=== PATIENT | female | born 1950 | race Caucasian/White ===

== ENCOUNTER 2017-03-19 13:30 | Inpatient (IN) | payer MEDICARE ==
--- NOTE | 2017-03-19 14:05 | ED Physician Chart ---
ED Chief Complaint/HPI - Patient Information Date Seen:: 03/19/17 Time Seen:: 13:50 Chief Complaint:: abnormal laboratory tests History of Present Illness:: Patient refused laboratory tests on the and of this month. On 2016 patient's hemoglobin was 10.7, hematocrit 31.6 platelets 154,000 potassium 3.4, BUN 32. Allergies:: Allergies Allergy/AdvReac Type Severity Reaction Status Date / Time Penicillins Allergy Verified 03/19/17 13:43 Vitals:: Vital Signs - 8 hr 03/19/17 13:43 Temp 98.1 F HR 128 RR 17 BP 135/69 O2 Sat % 95 Historian:: Patient Review:: Nurse's Note Reviewed, Transfer documents Reviewed ED Review of Systems - Review of Systems General/Constitutional: No fever, No chills Skin: No skin lesions Head: No headache Eyes: No loss of vision ENT: No earache Neck: No neck pain, No swelling Cardio Vascular: No chest pain Pulmonary: No SOB, No cough GI: No nausea, No vomiting, No diarrhea G/U: No dysuria Musculoskeletal: No bone or joint pain Endocrine: No polyuria Psychiatric: No prior psych history Hematopoietic: No bruising, No lymphadenopathy Allergic/Immuno: No urticaria Neurological: No syncope, No focal symptoms ED Past Medical History - Past Medical History Past Medical History: HTN, DM, Arthritis, Other (morbid obesity; overactive bladder; anxiety; insomnia; atherosclerotic heart disease; schizoaffective disorder; chronic renal insufficiency) Family History: HTN Social History: Smoker, No Alcohol, Care Facility, Other (quit smoking about 5 years ago) Surgical History: other (rotator cuff right shoulder; carpal tunnel right wrist ; plantar fasciitis right foot) Psychiatricy History: Depression, Bipolar Medication: Reviewed Family Medical History - Family Member Mother Hx Family Cancer: No Hx Family Coronary Artery Disease: No Hx Family Congestive Heart Failure: No Hx Family Hypertension: No Hx Family Stroke: No Hx Family Diabetes: No Hx Family Dementia: No Hx Family AIDS: No Hx Family COPD: No Hx Family Psychiatric Problems: No Hx Family Tuberculosis: No ED Physical Exam - Physical Examination General/Constitutional: Well-developed, well-nourished, Alert Head: Atraumatic Eyes: Lids, conjuctiva normal, PERRL Skin: Nl inspection, No rash, No skin lesions, No ecchymosis ENMT: External ears, nose nl, Lips, teeth, gums nl Other ENMT comments:: 3/4 gum retraction Neck: No nuchal rigidity Other Cardio Vascular comments:: Rapid irregular rhythm; no murmur GI: No tenderness/rebounding/guarding, No organomegaly, No hernia : No CVA tenderness Extremities: No tenderness or effusion Neuro/Psych: Alert/oriented Other Neuro/Psych comments:: Alert and oriented to correct date Misc: Normal back ED Labs/Radiology/EKG Results - Lab Results Results: Laboratory Results - last 24 hr 03/19/17 03/19/17 14:06 14:06 WBC 11.9 H RBC 4.59 Hgb 12.4 Hct 37.1 L MCV 80.9 L MCH 27.0 MCHC Differential 33.4 RDW 14.8 Plt Count 214 MPV 7.2 Neutrophils % 82.5 H Lymphocytes % 11.8 L Monocytes % 5.3 Eosinophils % 0.4 Basophils % 0.0 Sodium 129 L Potassium 2.5 L* Chloride 84 L BUN 25 Creatinine 1.4 H Est GFR ( Amer) 48.5 Est GFR (Non-Af Amer) 40.1 BUN/Creatinine Ratio 17.9 Glucose 338 H Calcium 9.4 Total Bilirubin 1.0 AST 20 ALT 16 Alkaline Phosphatase 76 Total Protein 6.9 Albumin 3.7 Globulin 3.2 Albumin/Globulin Ratio 1.2 - Radiology Results Results: Chest x-ray demonstrated no acute disease - EKG Interpretations Rate & Rhythm: EKG demonstrated atrial fibrillation with a rate of 142 [place]: normal axis Comments:: Small Q waves in II, III, and avF and ST and T-wave changes ED Septic Shock - . Is Septic Shock (SBP<90, OR Lactate>4 mmol\L) present?: No - <6hrs of presentation: Vital Signs: Vital Signs - 8 hr 03/19/17 13:43 Temp 98.1 F HR 128 RR 17 BP 135/69 O2 Sat % 95 ED Reassessment (Disposition) - Reassessment Reassessment Condition:: Unchanged - Diagnosis Diagnosis:: Atrial fibrillation with rapid ventricular response; leukocytosis; hypokalemia - Patient Disposition Admitted to:: Telemetry Spoke to:: Mario Lewis Admitting Medical Physician:: Mario Lewis Condition at Disposition:: Stable, Improved
--- NOTE | 2017-03-19 14:10 | Diagnostic Imaging Report ---
CHEST X-RAY: AP view INDICATION: Rapid atrial fibrillation COMPARISON: None FINDINGS: The patient is rotated limiting the exam. No focal consolidation or effusions. Cardiomegaly is noted. Degenerative changes of the spine are noted. There is eventration of the right hemidiaphragm. IMPRESSION: No focal consolidation identified. Cardiomegaly.
[2017-03-19 14:16] LABS: % EOSINOPHILS 0.4 % (0.0-5.0); % LYMPHOCYTES 11.8 % (20.0-50.0); % MONOCYTES 5.3 % (2.0-10.0); % NEUTROPHILS 82.5 % (40.0-80.0); HEMATOCRIT 37.1 % (41.0-60); HEMOGLOBIN 12.4 gm/dL (12-16); LYMPHOCYTE ABSOLUTE 1.4 Th/cmm (1.5-3.0); MEAN CELL VOLUME 80.9 fl (81-100); MEAN CORPUSCULAR HGB CONC 33.4 pg (28.0-36.0); MEAN PLATELET VOLUME 7.2 fl; MONOCYTE ABSOLUTE 0.6 Th/cmm (0.3-1.0); NEUTROPHILE ABSOLUTE 9.9 Th/cmm (1.8-8.0); PLATELET COUNT 214 Th/cmm (150-400); RED BLOOD COUNT 4.59 Mil/cmm (3.80-5.20); RED CELL DISTRIBUTION WIDTH 14.8 % (11.5-20.0); WHITE BLOOD COUNT 11.9 Th/cmm (4.8-10.8)
[2017-03-19 14:31] LABS: ALB/GLOB RATIO 1.2 (1.0-1.8); ALBUMIN 3.7 gm/dL (3.7-5.3); CALCIUM SERUM 9.4 mg/dL (8.6-10.3); CREATININE - SERUM 1.4 mg/dL (0.6-1.2); GFR AFRICAN-AMERICAN 48.5 ml/min (>90); GFR NON AFRICAN-AMERICAN 40.1 ml/min; TOTAL PROTEIN,SERUM 6.9 gm/dL (6.0-8.3)
[2017-03-19 14:42] LABS: POTASSIUM SERUM 2.5 mEq/L (3.5-5.1)
[2017-03-19] MEDS ORDERED: Potassium Chloride 20 mEq ER Tab PO ONE ×3 (14:53→20:50)
[2017-03-19 15:09] LABS: ANION GAP 18.4 (7.0-16.0); CARBON DIOXIDE 29.1 mEq/L (21.0-31.0)
[2017-03-19 16:02] LABS: A1C % 7.2 % (4.0-6.0)
--- NOTE | 2017-03-19 17:18 | Consultation ---
Consult Note - Consult Note Service Date: 03/19/17 Referring Physician: Mario Lewis Consult Note: PHYSICIAN Consultation Note: Date of Admission: 03/19/17 Purpose of Consultation: Chief Complaint: Patient REUBEN LANCASTER was admitted to [facility] Telemetry with A FIB, TACHYCARDIA,KNEE PAIN. History of Present Illness: Patient is 66 female with a past medical history of hypertension, diabetes mellitus type 2, arthritis, morbid obesity, chronic renal insufficiency was brought to the ER for abnormal labs, hypokalemia. Patient was found to have atrial fibrillation. As per the patient, this was new finding. As patient found to be diaphoretic and had subjective fevers. ID consult was called for further antibiotic management. Past Medical History: hypertension, diabetes mellitus type 2, arthritis, morbid obesity, chronic renal insufficiency , seizure affected disorder, insomnia. Allergies Allergy/AdvReac Type Severity Reaction Status Date / Time Penicillins Allergy Verified 03/19/17 13:43 Vital Signs Temp 99.0 F 03/19/17 16:41 Pulse 115 03/19/17 16:41 Resp 18 03/19/17 16:41 BP 99/62 03/19/17 16:41 Pulse Ox 94 03/19/17 16:41 Home Medication Medication Instructions Recorded Type Aspirin [Aspirin Chewable] 81 mg PO DAILY 03/19/17 History Diphenhydramine HCL [Benadryl] 25 mg PO Q6H PRN 03/19/17 History Divalproex Sodium [Depakote] 1,000 mg PO HS 03/19/17 History Docusate Sodium [Colace] 100 mg PO BID 03/19/17 History Escitalopram Oxalate [Lexapro] 20 mg PO DAILY 03/19/17 History Ferrous Sulfate [Iron] 325 mg PO BID 03/19/17 History Furosemide [Lasix] 40 mg PO DAILY 03/19/17 History Hydrochlorothiazide [Hctz*] 25 mg PO DAILY 03/19/17 History Hydrocodone/APAP 10 mg/325 mg 1 tab PO Q4H PRN 03/19/17 History [[place] 10 mg/325 mg] Insulin Human Regular [NovoLIN R] 0 units SUBQ ACHS 03/19/17 History Ipratropium/Albuterol Sulfate 3 ml IH Q6H PRN 03/19/17 History [Iprat-Albut 0.5-3(2.5) mg/3 ml] Lorazepam [Ativan] 1 mg PO Q6H PRN 03/19/17 History Losartan Potassium [Cozaar] 50 mg PO HS 03/19/17 History Magnesium Hydroxide [Milk of 30 ml PO Q6H PRN 03/19/17 History Magnesia] Oxybutynin Chloride [Ditropan*] 5 mg PO BID 03/19/17 History amLODIPine Besylate [Norvasc*] 10 mg PO DAILY 03/19/17 History metFORMIN [Glucophage] 500 mg PO BID 03/19/17 History Current Medications Generic Name Dose Route Start Last Admin Trade Name Freq PRN Reason Stop Dose Admin Morphine Sulfate 1 mg 03/19/17 17:13 Morphine IVP 05/18/17 17:12 Q4HR PRN Pain (Severe) Review of Systems: A 12 point ROS was reviewed with the pertinent positive and negatives noted in the HPI. Physical Exam: General: Comfortable, obese. HEENT: Head: Normocephalic, atraumatic. Oral cavity: Moist, pink tongue. Eyes : No pallor. No icterus. Pupils PERRLA. EOMI. Neck: Supple, no JVD, no use of X his neck muscles. Cardio: S1 and S2 within normal limits regular rhythm no murmur no gallop. Respiratory: Vesicular breath sound, no crackles, no wheezing. Abdominal: Soft, nontender nondistended bowel sounds present Genital/Urinary: Deferred Extremities: No cyanosis, no clubbing, no edema. Neurological: Alert, awake, oriented 3. Assessment: 1. leukocytosis, reactive. r/o sepsis. 2. afib with rapid ventricular response. 3. Hypokalemia. Plan: Will Levaquin empirically., sepsis w/u. If sepsis workup comes negative in 3 to 5 days, discontinue antibiotic Levaquin. Thank you, Dr. Lewis for involving me in taking care of this patient Signed, Prosper Sampson M.D. [id number]
[2017-03-19] MEDS ORDERED: Levofloxacin 500mg/100mL 500 MG/100 ML BAG IV SCH (17:30)
[2017-03-19] MEDS ORDERED: Pneumococcal Vaccine 0.5 mL Vial IM ONE (20:01)
[2017-03-19] MEDS ORDERED: INSULIN ASPART SLIDING SCALE 100 UNITS/ML UNIT SUBQ SCH (21:00)
[2017-03-19] MEDS: Hydrocodone/APAP 10 mg/325 mg Tab PO PRN (21:13)
[2017-03-19] MEDS ORDERED: Hydrocodone/APAP 10 mg/325 mg Tab PO PRN (22:21)
[2017-03-19] MEDS ORDERED: Magnesium Hydroxide (MOM) 30 mL UDC PO PRN (22:21)
[2017-03-19] MEDS ORDERED: Albuterol/Ipratropium Neb 3 ML AERS HHN PRN (22:21)
[2017-03-19 23:12] LABS: URINE MICROSCOPIC INDICATED? YES; URINE SOURCE RANDOM
[2017-03-19 23:22] LABS: URINE BILIRUBIN NEGATIVE (NEGATIVE); URINE BLOOD TRACE (NEGATIVE); URINE GLUCOSE (UA) NEGATIVE (NEGATIVE); URINE KETONE TRACE mg/dL (NEGATIVE); URINE LEUKOCYTE ESTERASE SMALL (NEGATIVE); URINE NITRATE NEGATIVE (NEGATIVE); URINE PH 5.5 (4.6 - 8.0); URINE PROTEIN 30 mg/dL (NEGATIVE); URINE UROBILINOGEN 0.2 E.U./dL (0.2 - 1.0)
[2017-03-19 23:25] LABS: URINE BACTERIA MANY /hpf (NONE SEEN); URINE CLARITY CLOUDY (CLEAR); URINE COLOR YELLOW; URINE EPITHELIAL CELLS FEW /lpf (FEW)
[2017-03-19 23:26] LABS: URINE WBC >100 /hpf (0-5)
[2017-03-20] VITALS: BP 111/74
[2017-03-20 06:12] LABS: % EOSINOPHILS 2.2 % (0.0-5.0); % LYMPHOCYTES 28.6 % (20.0-50.0); % MONOCYTES 10.1 % (2.0-10.0); % NEUTROPHILS 59.1 % (40.0-80.0); EOSINOPHILE ABSOLUTE 0.2 Th/cmm (0.1-0.4); HEMOGLOBIN 11.1 gm/dL (12-16); LYMPHOCYTE ABSOLUTE 2.1 Th/cmm (1.5-3.0); MEAN CELL VOLUME 79.8 fl (81-100); MEAN CORPUSCULAR HEMOGLOBIN 27.5 pg (27.0-31.0); MEAN CORPUSCULAR HGB CONC 34.5 pg (28.0-36.0); MEAN PLATELET VOLUME 7.2 fl; MONOCYTE ABSOLUTE 0.7 Th/cmm (0.3-1.0); NEUTROPHILE ABSOLUTE 4.2 Th/cmm (1.8-8.0); PLATELET COUNT 200 Th/cmm (150-400); RED BLOOD COUNT 4.02 Mil/cmm (3.80-5.20)
[2017-03-20 06:14] LABS: HEMATOCRIT 32.1 % (41.0-60); WHITE BLOOD COUNT 7.2 Th/cmm (4.8-10.8)
[2017-03-20] MEDS: INSULIN ASPART, RECOMBINANT 100 UNITS/ML SUBQ SCH ×4 (06:39→21:07)
[2017-03-20 07:04] LABS: ALB/GLOB RATIO 1.2 (1.0-1.8); ALBUMIN 3.4 gm/dL (3.7-5.3); ANION GAP 9.2 (7.0-16.0); BILIRUBIN,TOTAL 0.6 mg/dL (0.3-1.0); CALCIUM SERUM 9.1 mg/dL (8.6-10.3); CARBON DIOXIDE 37.3 mEq/L (21.0-31.0); CREATININE - SERUM 1.2 mg/dL (0.6-1.2); GFR NON AFRICAN-AMERICAN 47.9 ml/min; TOTAL PROTEIN,SERUM 6.2 gm/dL (6.0-8.3)
[2017-03-20 07:33] LABS: POTASSIUM SERUM 2.5 mEq/L (3.5-5.1)
[2017-03-20] MEDS ORDERED: Aspirin 81mg Chewable Tab PO SCH (09:00)
[2017-03-20] MEDS ORDERED: Potassium Chloride 20 mEq ER Tab PO ONE ×4 (09:06→22:48)
[2017-03-20] MEDS ORDERED: KCL 20mEq/100mL Premix 20 MEQ/100 ML PIGGYBACK IV ONE (09:08)
[2017-03-20] MEDS: Ferrous Sulfate 325 MG TAB PO SCH ×2 (10:22→17:12)
[2017-03-20] MEDS: Hydrocodone/APAP 10 mg/325 mg Tab PO PRN ×3 (10:41→21:50)
--- NOTE | 2017-03-20 13:04 | Infectious Disease Prog Note ---
Infectious Disease Subjective - Review of Systems Service Date: 03/20/17 Subjective: No new change, no fever. Infectious Disease Objective - Results Result Diagrams: 03/20/17 05:30 03/20/17 05:30 Recent Labs: Laboratory Last Values WBC 7.2 Th/cmm (4.8-10.8) D 03/20/17 05:30 RBC 4.02 Mil/cmm (3.80-5.20) 03/20/17 05:30 Hgb 11.1 gm/dL (12-16) L 03/20/17 05:30 Hct 32.1 % (41.0-60) L D 03/20/17 05:30 MCV 79.8 fl (81-100) L 03/20/17 05:30 MCH 27.5 pg (27.0-31.0) 03/20/17 05:30 MCHC Differential 34.5 pg (28.0-36.0) 03/20/17 05:30 RDW 15.0 % (11.5-20.0) 03/20/17 05:30 Plt Count 200 Th/cmm (150-400) 03/20/17 05:30 MPV 7.2 fl 03/20/17 05:30 Neutrophils % 59.1 % (40.0-80.0) 03/20/17 05:30 Lymphocytes % 28.6 % (20.0-50.0) 03/20/17 05:30 Monocytes % 10.1 % (2.0-10.0) H 03/20/17 05:30 Eosinophils % 2.2 % (0.0-5.0) 03/20/17 05:30 Basophils % 0.0 % (0.0-2.0) 03/20/17 05:30 Sodium 134 mEq/L (136-145) L 03/20/17 05:30 Potassium 2.5 mEq/L (3.5-5.1) L* 03/20/17 05:30 Chloride 90 mEq/L (98-107) L 03/20/17 05:30 Carbon Dioxide 37.3 mEq/L (21.0-31.0) H 03/20/17 05:30 Anion Gap 9.2 (7.0-16.0) 03/20/17 05:30 BUN 27 mg/dL (7-25) H 03/20/17 05:30 Creatinine 1.2 mg/dL (0.6-1.2) 03/20/17 05:30 Est GFR ( Amer) 58.0 ml/min (>90) 03/20/17 05:30 Est GFR (Non-Af Amer) 47.9 ml/min 03/20/17 05:30 BUN/Creatinine Ratio 22.5 03/20/17 05:30 Glucose 169 mg/dL (70-105) H 03/20/17 05:30 POC Glucose 244 MG/DL (70 - 105) H 03/20/17 11:27 Hemoglobin A1c % 7.2 % (4.0-6.0) H 03/19/17 14:06 Calcium 9.1 mg/dL (8.6-10.3) 03/20/17 05:30 Magnesium 1.9 mg/dL (1.9-2.7) 03/19/17 14:06 Total Bilirubin 0.6 mg/dL (0.3-1.0) 03/20/17 05:30 AST 23 U/L (13-39) 03/20/17 05:30 ALT 14 U/L (7-52) 03/20/17 05:30 Alkaline Phosphatase 62 U/L (34-104) 03/20/17 05:30 Troponin I < 0.01 ng/mL (0.01-0.05) L 03/20/17 05:30 Total Protein 6.2 gm/dL (6.0-8.3) 03/20/17 05:30 Albumin 3.4 gm/dL (3.7-5.3) L 03/20/17 05:30 Globulin 2.8 gm/dL 03/20/17 05:30 Albumin/Globulin Ratio 1.2 (1.0-1.8) 03/20/17 05:30 Triglycerides 183 mg/dL (<150) H 03/20/17 05:30 Cholesterol 123 mg/dL (<200) 03/20/17 05:30 LDL Cholesterol Direct 69 mg/dL (75-193) L 03/20/17 05:30 HDL Cholesterol 24 mg/dL (23-92) 03/20/17 05:30 TSH 0.01 uIU/ml (0.34-5.60) L 03/19/17 18:07 Urine Source RANDOM 03/19/17 22:30 Urine Color YELLOW 03/19/17 22:30 Urine Clarity CLOUDY (CLEAR) H 03/19/17 22:30 Urine pH 5.5 (4.6 - 8.0) 03/19/17 22:30 Ur Specific [place] 1.015 (1.005-1.030) 03/19/17 22:30 Urine Protein 30 mg/dL (NEGATIVE) H 03/19/17 22:30 Urine Glucose (UA) NEGATIVE mg/dL (NEGATIVE) 03/19/17 22:30 Urine Ketones TRACE mg/dL (NEGATIVE) 03/19/17 22:30 Urine Blood TRACE (NEGATIVE) 03/19/17 22:30 Urine Nitrate NEGATIVE (NEGATIVE) 03/19/17 22:30 Urine Bilirubin NEGATIVE (NEGATIVE) 03/19/17 22:30 Urine Urobilinogen 0.2 E.U./dL (0.2 - 1.0) 03/19/17 22:30 Ur Leukocyte Esterase SMALL (NEGATIVE) H 03/19/17 22:30 Urine RBC 2-5 /hpf (0-5) 03/19/17 22:30 Urine WBC >100 /hpf (0-5) H 03/19/17 22:30 Ur Epithelial Cells FEW /lpf (FEW) 03/19/17 22:30 Urine Bacteria MANY /hpf (NONE SEEN) 03/19/17 22:30 - Physical Exam Vitals and I&O: Vital Signs Temp 98 F 03/20/17 04:00 Pulse 81 03/20/17 10:23 Resp 18 03/20/17 07:35 BP 111/82 03/20/17 10:23 Pulse Ox 95 03/20/17 07:35 Intake & Output 03/19/17 03/20/17 03/20/17 18:59 06:59 18:59 Intake Total 285 Balance 285 Weight (lbs) 129.274 kg Intake: Oral 285 Other: # Voids 2 # Bowel Movements 0 Active Medications: Current Medications Acetaminophen/Hydrocodone Bitart ([place] 10 Mg/325 Mg) 1 tab PO Q4H PRN PRN Reason: MODERATE PAIN Stop: 05/18/17 20:45 Last Admin: 03/20/17 10:41 Dose: 1 tab Acetaminophen/Hydrocodone Bitart ([place] 10 Mg/325 Mg) 1 tab PO Q4H PRN PRN Reason: PAIN Stop: 05/18/17 22:20 Albuterol/Ipratropium (Duoneb Neb) 3 ml HHN Q6H PRN PRN Reason: Wheezing Stop: 05/18/17 22:20 Amlodipine Besylate (Norvasc) 10 mg PO DAILY JASEN Stop: 05/19/17 08:59 Last Admin: 03/20/17 10:23 Dose: 10 mg Aspirin (Aspirin Chewable) 81 mg PO DAILY JASEN Stop: 05/19/17 08:59 Last Admin: 03/20/17 10:22 Dose: 81 mg Diphenhydramine HCl (Benadryl) 25 mg PO Q6H PRN PRN Reason: Itching Stop: 05/18/17 22:20 Divalproex Sodium (Depakote Dr) 1,000 mg PO HS JASEN PRN Reason: Protocol Stop: 05/19/17 20:59 Docusate Sodium (Colace) 100 mg PO BID JASEN Stop: 05/19/17 08:59 Last Admin: 03/20/17 10:18 Dose: 100 mg Escitalopram Oxalate (Lexapro) 20 mg PO DAILY JASEN PRN Reason: Protocol Stop: 05/19/17 08:59 Ferrous Sulfate (Iron) 325 mg PO BID JASEN Stop: 05/19/17 08:59 Last Admin: 03/20/17 10:22 Dose: 325 mg Furosemide (Lasix) 40 mg PO DAILY JASEN Stop: 05/19/17 08:59 Last Admin: 03/20/17 10:23 Dose: 40 mg Hydrochlorothiazide (Hctz) 25 mg PO DAILY JASEN Stop: 05/19/17 08:59 Last Admin: 03/20/17 10:20 Dose: 25 mg Levofloxacin (Levaquin Pb) 500 mg in 100 mls @ 100 mls/hr IV Q24HR JASEN Stop: 05/18/17 17:29 Last Admin: 03/19/17 19:04 Dose: 100 mls/hr Insulin Aspart (Novolog) 0 units SUBQ ACHS JASEN PRN Reason: Protocol Stop: 05/19/17 07:29 Last Admin: 03/20/17 11:44 Dose: 4 units Lorazepam (Ativan) 1 mg PO Q6H PRN; Protocol PRN Reason: Anxiety Stop: 05/18/17 22:20 Losartan Potassium (Cozaar) 50 mg PO HS JASEN Stop: 05/19/17 20:59 Magnesium Hydroxide (Milk Of Magnesia) 30 ml PO Q6H PRN PRN Reason: Constipation Stop: 05/18/17 22:20 Metformin HCl (Glucophage) 500 mg PO BID JASEN Stop: 05/19/17 08:59 Last Admin: 03/20/17 10:22 Dose: 500 mg Morphine Sulfate (Morphine) 1 mg IVP Q4HR PRN PRN Reason: Pain (Severe) Stop: 05/18/17 17:12 Last Admin: 03/20/17 05:54 Dose: 1 mg Oxybutynin Chloride (Ditropan) 5 mg PO BID JASEN Stop: 05/19/17 08:59 Last Admin: 03/20/17 10:20 Dose: 5 mg Rivaroxaban (Xarelto) 20 mg PO DAILY JASEN Stop: 05/19/17 08:59 Last Admin: 03/20/17 10:21 Dose: 20 mg Temazepam (Restoril) 15 mg PO HS PRN; Protocol PRN Reason: Insomnia Stop: 05/18/17 20:48 Last Admin: 03/19/17 21:44 Dose: 15 mg General: no acute distress, well developed, well nourished HEENT: atraumatic, normocephalic, PERRLA, EOMI, moist mucous membrane Neck: supple, no thyromegaly, no lymphadenopathy Cardiovascular: S1S2, regular Lungs: clear to auscultation bilaterally, clear to percussion Abdomen: soft, no tender, no distended Extremities: no cyanosis, no clubbing, no edema Neurological: awake, alert, oriented Skin: intact Infectious Disease Assmt/Plan - Problem List Patient Problems: All Active Problems ABNORMAL LAB RESULTS, NONCOMPLIANT, DIZZ (Acute) - Assessment Assessment: 1. UTI. 2. Afib. 3. morbid obesity. 4. Leukocytosis improved. 5. Hypoklalemia. - Plan Plan: Will supplement KCL. Check K again at 400pm. if it continues to stay low, than call for renal consultation.
[2017-03-20 15:01] LABS: ANION GAP 7.9 (7.0-16.0); BUN - UREA NITROGEN 23 mg/dL (7-25); CALCIUM SERUM 9.3 mg/dL (8.6-10.3); CARBON DIOXIDE 38.1 mEq/L (21.0-31.0); CHLORIDE 91 mEq/L (98-107); CREATININE - SERUM 1.1 mg/dL (0.6-1.2); GFR AFRICAN-AMERICAN > 60.0 ml/min (>90); GLUCOSE 194 mg/dL (70-105); SODIUM SERUM 134 mEq/L (136-145)
[2017-03-20] MEDS ORDERED: Probiotic Screen MC PRN (16:24)
--- NOTE | 2017-03-20 17:45 | Cardiology ---
03/20/[address] Lewis. M-MODE ECHOCARDIOGRAM: Mitral valve, anterior leaflet of mitral valve shows normal excursion, EF velocity. Posterior leaflets of mitral valve shows normal excursion. Left ventricular posterior wall shows increased thickness, normal excursion. Interventricular septum shows increased thickness, normal excursion, hypertrophy of the left ventricle, ejection fraction 60%. Left atrium normal. Aortic root shows normal dimension, normal excursion of aortic leaflets. CONCLUSION: Hypertrophy of the left ventricle, ejection fraction 60%. 2D ECHO: Long axis view showed normal sized left ventricle with hypertrophy of the left ventricle. Left atrium normal. Aortic root showed normal dimension, normal excursion of aortic leaflets. Short axis view of mitral valve normal. Short axis view of aortic valve normal. Apical four chamber view showed normal sized left ventricle with hypertrophy of the left ventricle. Left atrium normal. Right ventricular cavity, right atrium normal, no pericardial effusion. CONCLUSION: Hypertrophy of the left ventricle, ejection fraction 60%. Doppler study shows trace tricuspid regurgitation, prominent A wave consistent with poor compliance of left ventricle. JOB# [id number]
[2017-03-20 18:28] LABS: ALB/GLOB RATIO 1.2 (1.0-1.8); ALBUMIN 3.6 gm/dL (3.7-5.3); ALKALINE PHOSPHATASE 67 U/L (34-104); ANION GAP 8.6 (7.0-16.0); BILIRUBIN,TOTAL 0.6 mg/dL (0.3-1.0); BUN - UREA NITROGEN 22 mg/dL (7-25); CALCIUM SERUM 9.2 mg/dL (8.6-10.3); CARBON DIOXIDE 37.2 mEq/L (21.0-31.0); CHLORIDE 88 mEq/L (98-107); CREATININE - SERUM 1.1 mg/dL (0.6-1.2); GFR AFRICAN-AMERICAN > 60.0 ml/min (>90); GLUCOSE 146 mg/dL (70-105); SGOT 20 U/L (13-39); SGPT/ALT 13 U/L (7-52); SODIUM SERUM 131 mEq/L (136-145); TOTAL PROTEIN,SERUM 6.5 gm/dL (6.0-8.3)
[2017-03-20 18:43] LABS: POTASSIUM SERUM 2.8 mEq/L (3.5-5.1)
--- NOTE | 2017-03-20 22:30 | History and Physical ---
History of Present Illness - HPI Chief Complaint: abnormal labs HPI: 66 year old female admitted to the telemetry unit for abnormal labs. No fevers or chest pain noted Vital Signs: Last Vital Signs Temp 98.3 F 03/20/17 16:00 Pulse 80 03/20/17 21:11 Resp 18 03/20/17 19:54 BP 99/61 03/20/17 21:11 Pulse Ox 94 03/20/17 19:54 Past Medical History Cardiovascular: Report: HTN, Other (ahd) Pulmonary: Report: No Pertinent Hx Other History: diabetes athritis morbid obesity overreactive bladder anxiety insomnia schizoaffective chronic renal insufficiency - Past Surgical History Past Surgical History: Tonsillectomy (right foot, carpal tunnel right wrist, rotator cuff) Family Medical History - Family Member Mother History Unknown: Yes (noncontributory) Hx Family Cancer: No Hx Family Coronary Artery Disease: No Hx Family Congestive Heart Failure: No Hx Family Hypertension: No Hx Family Stroke: No Hx Family Diabetes: No Hx Family Dementia: No Hx Family AIDS: No Hx Family COPD: No Hx Family Psychiatric Problems: No Hx Family Tuberculosis: No Social History Smoke: <1 pack per day Alcohol: None Drugs: None Lives: Skilled Nursing - Medications Home Medications: Home Medication Medication Instructions Recorded Type Aspirin [Aspirin Chewable] 81 mg PO DAILY 03/19/17 History Diphenhydramine HCL [Benadryl] 25 mg PO Q6H PRN 03/19/17 History Divalproex Sodium [Depakote] 1,000 mg PO HS 03/19/17 History Docusate Sodium [Colace] 100 mg PO BID 03/19/17 History Escitalopram Oxalate [Lexapro] 20 mg PO DAILY 03/19/17 History Ferrous Sulfate [Iron] 325 mg PO BID 03/19/17 History Furosemide [Lasix] 40 mg PO DAILY 03/19/17 History Hydrochlorothiazide [Hctz*] 25 mg PO DAILY 03/19/17 History Hydrocodone/APAP 10 mg/325 mg 1 tab PO Q4H PRN 03/19/17 History [[place] 10 mg/325 mg] Insulin Human Regular [NovoLIN R] 0 units SUBQ ACHS 03/19/17 History Ipratropium/Albuterol Sulfate 3 ml IH Q6H PRN 03/19/17 History [Iprat-Albut 0.5-3(2.5) mg/3 ml] Lorazepam [Ativan] 1 mg PO Q6H PRN 03/19/17 History Losartan Potassium [Cozaar] 50 mg PO HS 03/19/17 History Magnesium Hydroxide [Milk of 30 ml PO Q6H PRN 03/19/17 History Magnesia] Oxybutynin Chloride [Ditropan*] 5 mg PO BID 03/19/17 History amLODIPine Besylate [Norvasc*] 10 mg PO DAILY 03/19/17 History metFORMIN [Glucophage] 500 mg PO BID 03/19/17 History - Allergies Allergies/Adverse Reactions: Allergies Allergy/AdvReac Type Severity Reaction Status Date / Time Penicillins Allergy Verified 03/19/17 13:43 Review of Systems - Review of Systems Constitutional: Report: No Significant Eyes: Report: No Significant ENT: Report: No Significant Respiratory: Report: No Significant Cardiovascular: Report: No Significant Gastrointestinal: Report: No Significant Genitourinary: Report: No Significant Neurological: Report: No Significant Physical Exam - Physical Exam HEENT: Report: Ears Nose Throat within normal limits Neck: Report: Within normal limits Cardiovascular Systems: Report: +s1/s2 noted Respiratory: Report: Breath Sounds are within normal limits Abdomen: Report: Non-tender to palpation Back: Report: Inspection of back is within normal limits. Extremities: Report: Non-tender to palpation. Skin: Report: Warm, Dry Neuro/Psych: Report: Mood affect is within normal limits - Lab Results All Lab Results last 24 hours: Laboratory Results - last 24 hr 03/19/17 03/20/17 03/20/17 22:30 05:30 05:30 WBC 7.2 D RBC 4.02 Hgb 11.1 L Hct 32.1 L D MCV 79.8 L MCH 27.5 MCHC Differential 34.5 RDW 15.0 Plt Count 200 MPV 7.2 Neutrophils % 59.1 Lymphocytes % 28.6 Monocytes % 10.1 H Eosinophils % 2.2 Basophils % 0.0 Sodium Potassium Chloride Carbon Dioxide Anion Gap BUN Creatinine Est GFR ( Amer) Est GFR (Non-Af Amer) BUN/Creatinine Ratio Glucose POC Glucose Calcium Total Bilirubin AST ALT Alkaline Phosphatase Troponin I < 0.01 L Total Protein Albumin Globulin Albumin/Globulin Ratio Triglycerides Cholesterol LDL Cholesterol Direct HDL Cholesterol Urine Source RANDOM Urine Color YELLOW Urine Clarity CLOUDY H Urine pH 5.5 Ur Specific [place] 1.015 Urine Protein 30 H Urine Glucose (UA) NEGATIVE Urine Ketones TRACE Urine Blood TRACE Urine Nitrate NEGATIVE Urine Bilirubin NEGATIVE Urine Urobilinogen 0.2 Ur Leukocyte Esterase SMALL H Urine RBC 2-5 Urine WBC >100 H Ur Epithelial Cells FEW Urine Bacteria MANY 03/20/17 03/20/17 03/20/17 05:30 06:00 11:27 WBC RBC Hgb Hct MCV MCH MCHC Differential RDW Plt Count MPV Neutrophils % Lymphocytes % Monocytes % Eosinophils % Basophils % Sodium 134 L Potassium 2.5 L* Chloride 90 L Carbon Dioxide 37.3 H Anion Gap 9.2 BUN 27 H Creatinine 1.2 Est GFR ( Amer) 58.0 Est GFR (Non-Af Amer) 47.9 BUN/Creatinine Ratio 22.5 Glucose 169 H POC Glucose 167 H 244 H Calcium 9.1 Total Bilirubin 0.6 AST 23 ALT 14 Alkaline Phosphatase 62 Troponin I Total Protein 6.2 Albumin 3.4 L Globulin 2.8 Albumin/Globulin Ratio 1.2 Triglycerides 183 H Cholesterol 123 LDL Cholesterol Direct 69 L HDL Cholesterol 24 Urine Source Urine Color Urine Clarity Urine pH Ur Specific [place] Urine Protein Urine Glucose (UA) Urine Ketones Urine Blood Urine Nitrate Urine Bilirubin Urine Urobilinogen Ur Leukocyte Esterase Urine RBC Urine WBC Ur Epithelial Cells Urine Bacteria 03/20/17 03/20/17 03/20/17 14:22 17:08 18:06 WBC RBC Hgb Hct MCV MCH MCHC Differential RDW Plt Count MPV Neutrophils % Lymphocytes % Monocytes % Eosinophils % Basophils % Sodium 134 L 131 L Potassium 3.0 L 2.8 L* Chloride 91 L 88 L Carbon Dioxide 38.1 H 37.2 H Anion Gap 7.9 8.6 BUN 23 22 Creatinine 1.1 1.1 Est GFR ( Amer) > 60.0 > 60.0 Est GFR (Non-Af Amer) 53.0 53.0 BUN/Creatinine Ratio 20.9 20.0 Glucose 194 H 146 H POC Glucose 176 H Calcium 9.3 9.2 Total Bilirubin 0.6 AST 20 ALT 13 Alkaline Phosphatase 67 Troponin I Total Protein 6.5 Albumin 3.6 L Globulin 2.9 Albumin/Globulin Ratio 1.2 Triglycerides Cholesterol LDL Cholesterol Direct HDL Cholesterol Urine Source Urine Color Urine Clarity Urine pH Ur Specific [place] Urine Protein Urine Glucose (UA) Urine Ketones Urine Blood Urine Nitrate Urine Bilirubin Urine Urobilinogen Ur Leukocyte Esterase Urine RBC Urine WBC Ur Epithelial Cells Urine Bacteria 03/20/17 20:45 WBC RBC Hgb Hct MCV MCH MCHC Differential RDW Plt Count MPV Neutrophils % Lymphocytes % Monocytes % Eosinophils % Basophils % Sodium Potassium Chloride Carbon Dioxide Anion Gap BUN Creatinine Est GFR ( Amer) Est GFR (Non-Af Amer) BUN/Creatinine Ratio Glucose POC Glucose 189 H Calcium Total Bilirubin AST ALT Alkaline Phosphatase Troponin I Total Protein Albumin Globulin Albumin/Globulin Ratio Triglycerides Cholesterol LDL Cholesterol Direct HDL Cholesterol Urine Source Urine Color Urine Clarity Urine pH Ur Specific [place] Urine Protein Urine Glucose (UA) Urine Ketones Urine Blood Urine Nitrate Urine Bilirubin Urine Urobilinogen Ur Leukocyte Esterase Urine RBC Urine WBC Ur Epithelial Cells Urine Bacteria - Assessment Assessment: Current Active Problems Problem Status Onset ABNORMAL LAB RESULTS, NONCOMPLIANT, DIZZ Acute hypokalemia protein roel malnutrition anemia hyponatremia diabetes obesity - Plan Plan: admit to tele monitor potassium , replace as needed dietary consult
[2017-03-21] MEDS ORDERED: Lactobacillus Rhamnosus 10 Billion CFU Capsule PO SCH (09:00)
== END 2017-03-20 23:07 | DRG 640 ==
LOC: ER 13:30 → TELE 15:00
PROVIDERS: ADMIT Internal Medicine; ATTEND Internal Medicine
DX: E87.6 Hypokalemia (principal); R65.11 Systemic inflammatory response syndrome (SIRS) of non-infectious origin with acute organ dysfunction; E46 Unspecified protein-calorie malnutrition; E11.22 Type 2 diabetes mellitus with diabetic chronic kidney disease; I48.91 Unspecified atrial fibrillation; E87.1 Hypo-osmolality and hyponatremia; N39.0 Urinary tract infection, site not specified; I12.9 Hypertensive chronic kidney disease with stage 1 through stage 4 chronic kidney disease, or unspecified chronic kidney disease; Z68.41 Body mass index [BMI] 40.0-44.9, adult; M19.90 Unspecified osteoarthritis, unspecified site; E66.01 Morbid (severe) obesity due to excess calories; N32.81 Overactive bladder; F41.9 Anxiety disorder, unspecified; G47.00 Insomnia, unspecified; I25.10 Atherosclerotic heart disease of native coronary artery without angina pectoris; F25.9 Schizoaffective disorder, unspecified; N18.9 Chronic kidney disease, unspecified; F17.210 Nicotine dependence, cigarettes, uncomplicated; G40.909 Epilepsy, unspecified, not intractable, without status epilepticus; Z88.0 Allergy status to penicillin; Z79.82 Long term (current) use of aspirin; Z79.4 Long term (current) use of insulin
CPT/HCPCS: 36415-UA; 71010-TC; 80048-TC; 80053-TC; 80061-TC; 81001-TC; 82948-90; 83036-90; 83735-TC; 84443-TC; 84484-TC; 85025-TC; 87086-90; 93005; 94760; J1815; J1956; J2270; J3480; J7030; Z7610

== ENCOUNTER 2017-03-20 22:57 | Inpatient (IN) | payer MEDICARE ==
[2017-03-21 00:20] VITALS: BP 134/76
[2017-03-21] MEDS ORDERED: Maalox 30 mL Cup PO PRN (00:21)
[2017-03-21] MEDS ORDERED: Magnesium Hydroxide (MOM) 30 mL UDC PO PRN (00:21)
--- NOTE | 2017-03-21 02:04 | Consultation ---
DATE OF CONSULTATION: 03/20/[address] Lewis. HISTORY AND PHYSICAL: This is 66-year-old morbidly obese female patient who was brought to the hospital complaining of shortness of breath, swelling in both lower extremities. In the Emergency Room, the patient was found to have atrial fibrillation with rapid ventricular response and the patient is admitted. PAST MEDICAL HISTORY: Hypertension, diabetes, morbid obesity, angina, bipolar schizophrenia, and diabetes mellitus type 2. FAMILY HISTORY: Unremarkable. SOCIAL HISTORY: No history of smoking or alcohol abuse. ALLERGIES: No known allergies. PHYSICAL EXAMINATION: VITAL SIGNS: Blood pressure 130/80; pulse 110, irregular; and respirations 28. HEAD: Normocephalic. No lumps or bumps. EYES: Pupils are equal and reactive to light. Fundi show AV nicking, sclerae white, and conjunctivae pink. NECK: Carotid 2+. Normal upstroke. JVD flat. Thyroid not palpable. Lymph nodes not palpable. CHEST: Shows increased AP diameter. No kyphosis or scoliosis. LUNGS: Bilateral rales. Decreased breath sounds in both the bases. HEART: PMI sixth intercostal space with lateral to midclavicular line. S1, S2, S3, S4, soft systolic murmur. ABDOMEN: Soft. Liver and spleen not palpable. No organomegaly. Bowel sounds active. NEUROLOGIC: Unremarkable. EXTREMITIES: Peripheral pulses, 1+ pedal edema. CLINICAL IMPRESSION: Atrial fibrillation with rapid ventricular response, hypertension, diabetes mellitus type 2, morbid obesity, angina, bipolar schizophrenia, diabetes mellitus type 2, and diabetic chronic kidney disease stage 2. PLAN: Admit the patient. We will get echocardiogram, BNP level, and anticoagulate the patient. JOB# [id number]
--- NOTE | 2017-03-21 08:24 | History & Physical ---
ADMIT DATE: 03/21/2017 CHIEF COMPLAINT: Agitation. HISTORY OF PRESENT ILLNESS: This is a 66-year-old female admitted from Med/Surg Unit transferred to Geropsych Unit due to gravely disabled. The patient was placed on a 5150 hold. REVIEW OF SYSTEMS: GENERAL: This is a 66-year-old female that appears as started. Denies any fever or chills. HEAD: Denies any headache. Denies any dizziness. EYES: Denies any eye pain. Denies blurring of vision. NECK: Denies any neck pain, denies nuchal rigidity. CHEST: Denies palpitation. Denies chest pain. RESPIRATORY: Denies shortness of breath. Denies coughing. GASTROINTESTINAL: Denies abdominal pain, denies diarrhea, denies constipation. GENITOURINARY: Denies dysuria. MUSCULOSKELETAL: Positive bilateral knee pain. Denies muscle pain. SOCIAL HISTORY: The patient lives in a senior living facility prior to hospitalization. PAST MEDICAL HISTORY: Includes hypertension, diabetes, obesity, osteoarthritis. PAST SURGICAL HISTORY: Unremarkable. FAMILY HISTORY: Unremarkable. PHYSICAL EXAMINATION: VITAL SIGNS: Temperature 99, heart rate 76, blood pressure 107/70, respiration of 20, 95% on room air. HEAD: Atraumatic, normocephalic. EYES: Bilateral conjunctivae are clear. Bilateral pupils are equally round and reactive. NECK: Supple. No JVD. CARDIOVASCULAR: S1 and S2, without murmur. PULMONARY: Clear to auscultation. GASTROINTESTINAL: Soft and nontender without guarding. Positive bowel sounds. MUSCULOSKELETAL: No clubbing, no cyanosis noted. ASSESSMENT: 1. Bipolar disorder. 2. Atrial fibrillation. 3. Diabetes mellitus. 4. Hypertension. 5. Obesity. 6. Chronic kidney disease. 7. Hyperlipidemia. PLAN: We will keep the patient in Geropsych Unit. We will follow up with the psychiatrist to monitor the patient's condition and behavior. Treatment plans were discussed with the patient's nurse. Treatment plans were discussed with Dr. Lewis. JOB# [id number]
[2017-03-21] MEDS: INSULIN ASPART SLIDING SCALE 100 UNITS/ML UNIT SUBQ SCH ×4 (08:30→21:14)
[2017-03-21] MEDS: Ferrous Sulfate 325 MG TAB PO SCH ×2 (08:44→17:02)
[2017-03-21] MEDS: Hydrocodone/APAP 10 mg/325 mg Tab PO PRN ×3 (08:45→21:06)
[2017-03-21] MEDS: Aspirin 81mg Chewable Tab PO SCH (08:45)
[2017-03-21] MEDS: Multivitamin Tab PO SCH (08:46)
--- NOTE | 2017-03-21 11:31 | Psychosocial Evaluation ---
DATE OF SERVICE: The patient was seen, chart reviewed, discussed with staff. JUSTIFICATION FOR HOSPITALIZATION: "They said I was acting weird." The patient is confused, disoriented. HISTORY OF PRESENT ILLNESS: A 66-year-old female who states she has been to psychiatric facilities before, noted on [id number] to be confused to situation. She knows she is in the hospital. She knows the year. She does not know why she was brought to the hospital. She is pretty confused about this. The patient notes she is eating fairly well, sleeping fairly well. Denying any thoughts of hopelessness, no despair. She was brought in on a hold. She was apparently paranoid, refusing medications, not cooperative. Resistive, cursing, disorganized. PAST PSYCHIATRIC HISTORY: Admissions in the past per the patient. FAMILY HISTORY: Noncontributory. SOCIAL HISTORY: Born in [place], not , 2 daughters, not a smoker. No drinking, no drugs, no alcohol. MEDICAL HISTORY: Noted. MEDICATIONS: Reviewed. MENTAL STATUS EXAMINATION: Stated age. Fair eye contact. Speech loud. Mood "not good." Affect angry. Thought processes were fragmented. Thought content; no overt SI or HI, but apparently she was paranoid. Poor insight, poor judgment. PROVISIONAL DIAGNOSES: Psychosis, unspecified; mood, unspecified; rule out bipolar. MEDICAL: Please see full H and P. ASSESSMENT: The patient requiring inpatient hospitalization, upset, paranoid, refusing care, aggressive. PLAN: We will continue medications. Treatment plan includes group, as well as milieu therapy. CONDITIONS FOR DISCHARGE: Improved mood, improved affect, better coping, cessation of any psychotic or mood symptoms or rather better control of her mood symptoms. JOB# [id number]
[2017-03-22] MEDS: Hydrocodone/APAP 10 mg/325 mg Tab PO PRN ×3 (06:33→18:03)
[2017-03-22] MEDS: INSULIN ASPART SLIDING SCALE 100 UNITS/ML UNIT SUBQ SCH ×4 (06:40→20:49)
[2017-03-22 07:16] LABS: ANION GAP 7.6 (7.0-16.0); CALCIUM SERUM 9.1 mg/dL (8.6-10.3); CARBON DIOXIDE 36.4 mEq/L (21.0-31.0); CREATININE - SERUM 1.2 mg/dL (0.6-1.2)
[2017-03-22] MEDS: Multivitamin Tab PO SCH (09:05)
[2017-03-22] MEDS: Aspirin 81mg Chewable Tab PO SCH (09:05)
[2017-03-22] MEDS: Ferrous Sulfate 325 MG TAB PO SCH ×2 (09:06→16:41)
--- NOTE | 2017-03-22 10:28 | General Progress Note ---
Subjective - Review of Systems Events since last encounter: patient awake confused Objective - Results Result Diagrams: 03/22/17 06:40 Recent Labs: Laboratory Last Values Sodium 135 mEq/L (136-145) L 03/22/17 06:40 Potassium 3.0 mEq/L (3.5-5.1) L 03/22/17 06:40 Chloride 94 mEq/L (98-107) L 03/22/17 06:40 Carbon Dioxide 36.4 mEq/L (21.0-31.0) H 03/22/17 06:40 Anion Gap 7.6 (7.0-16.0) 03/22/17 06:40 BUN 24 mg/dL (7-25) 03/22/17 06:40 Creatinine 1.2 mg/dL (0.6-1.2) 03/22/17 06:40 Est GFR ( Amer) 58.0 ml/min (>90) 03/22/17 06:40 Est GFR (Non-Af Amer) 47.9 ml/min 03/22/17 06:40 BUN/Creatinine Ratio 20.0 03/22/17 06:40 Glucose 140 mg/dL (70-105) H 03/22/17 06:40 POC Glucose 144 MG/DL (70 - 105) H 03/22/17 06:22 Calcium 9.1 mg/dL (8.6-10.3) 03/22/17 06:40 - Physical Exam Vitals and I&O: Vital Signs Temp 97.7 F 03/22/17 05:55 Pulse 109 03/22/17 05:55 Resp 19 03/22/17 05:55 BP 98/62 03/22/17 05:55 Pulse Ox 97 03/22/17 05:55 Intake & Output 03/21/17 03/22/17 03/22/17 18:59 06:59 18:59 Other: Stool Characteristics Soft Active Medications: Current Medications Acetaminophen (Tylenol) 650 mg PO Q4HR PRN PRN Reason: Mild Pain / Temp above 100 Stop: 05/20/17 00:20 Acetaminophen/Hydrocodone Bitart ([place] 10 Mg/325 Mg) 1 tab PO Q4H PRN PRN Reason: Pain (Severe) Stop: 05/20/17 03:32 Last Admin: 03/22/17 06:33 Dose: 1 tab Al Hydrox/Mg Hydrox/Simethicone (Maalox) 30 ml PO Q4HR PRN PRN Reason: GI DISTRESS Stop: 05/20/17 00:20 Amlodipine Besylate (Norvasc) 10 mg PO DAILY [facility] Stop: 05/20/17 08:59 Last Admin: 03/22/17 09:05 Dose: Not Given Aspirin (Aspirin Chewable) 81 mg PO DAILY [facility] Stop: 05/20/17 08:59 Last Admin: 03/22/17 09:05 Dose: 81 mg Diphenhydramine HCl (Benadryl) 25 mg PO Q6HR PRN PRN Reason: Itching Stop: 05/20/17 05:02 Divalproex Sodium (Depakote Dr) 500 mg PO HS JASEN PRN Reason: Protocol Stop: 05/20/17 20:59 Last Admin: 03/21/17 20:43 Dose: 500 mg Docusate Sodium (Colace) 100 mg PO BID [facility] Stop: 05/20/17 08:59 Last Admin: 03/22/17 09:06 Dose: 100 mg Escitalopram Oxalate (Lexapro) 20 mg PO DAILY J[facility] PRN Reason: Protocol Stop: 05/20/17 08:59 Last Admin: 03/22/17 09:06 Dose: 20 mg Ferrous Sulfate (Iron) 325 mg PO BID J[facility] Stop: 05/20/17 08:59 Last Admin: 03/22/17 09:06 Dose: 325 mg Furosemide (Lasix) 40 mg PO DAILY [facility] Stop: 05/20/17 08:59 Last Admin: 03/22/17 09:06 Dose: Not Given Hydrochlorothiazide (Hctz) 25 mg PO DAILY [facility] Stop: 05/20/17 08:59 Last Admin: 03/22/17 09:06 Dose: Not Given Insulin Aspart (Novolog Insulin Sliding Scale) 0 units SUBQ ACHS JASEN PRN Reason: Protocol Stop: 05/20/17 07:29 Last Admin: 03/22/17 06:40 Dose: Not Given Lorazepam (Ativan) 0.5 mg PO Q4HR PRN; Protocol PRN Reason: Anxiety Stop: 04/20/17 00:20 Last Admin: 03/22/17 09:06 Dose: 0.5 mg Losartan Potassium (Cozaar) 50 mg PO HS JASEN Stop: 05/20/17 20:59 Last Admin: 03/21/17 20:44 Dose: 50 mg Magnesium Hydroxide (Milk Of Magnesia) 30 ml PO HS PRN PRN Reason: Constipation Metformin HCl (Glucophage) 500 mg PO DAILY [facility] Stop: 05/20/17 08:59 Last Admin: 03/22/17 09:06 Dose: 500 mg Multivitamins/Vitamin C (Theragran) 1 tab PO DAILY JASEN Stop: 05/20/17 08:59 Last Admin: 03/22/17 09:05 Dose: 1 tab Oxybutynin Chloride (Ditropan) 5 mg PO BID [facility] Stop: 05/20/17 08:59 Last Admin: 03/22/17 09:05 Dose: 5 mg Quetiapine Fumarate (Seroquel) 50 mg PO HS JASEN PRN Reason: Protocol Stop: 05/21/17 20:59 Zolpidem Tartrate (Ambien) 5 mg PO HS PRN PRN Reason: Insomnia Stop: 05/20/17 00:20 Last Admin: 03/21/17 20:44 Dose: 5 mg General: No acute distress HEENT: Atraumatic, PERRLA Neck: Supple Cardiovascular: Regular rate, Normal S1 Assessment/Plan - Problem List Patient Problems: All Active Problems Atrial fibrillation (Acute) I48.91 Bipolar disorder (Acute) CKD (chronic kidney disease) (Acute) N18.9 Diabetes mellitus (Acute) E11.9 HTN (hypertension) (Acute) I10 Hyperlipemia (Acute) E78.5 Obesity (Acute) E66.9 ABNORMAL LAB RESULTS, NONCOMPLIANT, DIZZ (Acute) - Plan Plan: cpm Nutritional Asmnt/Malnutr-PDOC - Dietary Evaluation Malnutrition Findings (Please click <Entered> for more info): Nutritional Asmnt/Malnutrition Start: 03/21/17 10: 45 Text: Status: Complete Freq: Document 03/21/17 10:45 JOHNNA (Rec: 03/21/17 11:09 JOHNNA SOL- FN) Nutritional Asmnt/Malnutrition Patient General Information Nutritional Screening Consult Diagnosis Psychosis NOS Pertinent Medical Hx/Surgical Hx DM, HTN, incontinence of urine . Subjective Information Consult received for BG 189 on admission. Patient was transferred from [facility] to [facility] on 5150 hold. Per nursing notes, patient was refusing care/ medication and uncooperative. Seen by ALIDA on 03/20 in TELE. Reviewed dinner menu with patient to pick her options to further compliance with eating meals. Current Diet Order/ Nutrition Support 60gm CCHO Patient / S.O Not Indicated Pertinent Medications Maalox, colace, iron, lasix, Novolog, Cozaar, MOM, Metformin, Theragran Pertinent Labs (03/20) Na 131, K 2.8, Glucose ranging 146-244, Albumin 3.6 (HGA1C 7.2) Nutritional Hx/Data Height 1.7 m Height (Calculated Centimeters) 170.2 Current Weight (lbs) 129.274 kg Weight (Calculated Kilograms) 129.3 Weight (Calculated Grams) 534752.8 [place] Body Weight 135 % [place] Body Weight 211 Recent Weight Change No Weight Status Morbidly Obese GI Symptoms GI Symptoms None Food Allergies No Cultural/Ethnic/[employer] Belief None indicated Usual diet at home unknown Skin Integrity/Comment: Kumar 19, intact Current %PO Good (75-100%) Estimated Nutritional Goals BEE in Kcals: Adj wt of IBW Calories/Kcals/Kg Adj body weight- 78.4kg (25-30 gm/kg) - weight loss Kcals Calculated 0164-2675 kcal/day Protein: Adj wt of IBW Protein g/kg: Adj body weight- 78.4kg (1-1.2 gm/kg) - underfeeding Protein Calculated 80-95 gm/day Fluid: ml 8511-3995 ml/day (1 ml/kcal) Nutritional Problem 2. Problem Problem Altered nutrition related lab values related to Etiology electrolyte imbalance/ uncontrolled hyperglycemia aeb Signs/Symptoms: Na 131, K 2.8, Glucose ranging 146-244 1. Problem Problem Malnutrition related to Etiology morbid obesity aeb Signs/Symptoms: BMI 44.6 kg/m^2 Malnutrition Related to Morbid Obesity Malnutrition related to morbid obesity BMI> or equal to 40 Query Text:(Any 1 Criteria met) Malnutrition related to morbid obesity Yes Intervention/Recommendation Comments 1. Continue 60 gm CCHO diet as tolerated by patient. 2. MD to adjust insulin regimen for optimal glycemic control. 3. Diet is liberalized for electrolytes: MD to replace lytes as needed and consider fluid restriction for Hyponatremia. Expected Outcomes/Goals Expected Outcomes/Goals Oral intake to meet >75% of estimated nutrient needs, weight stable or trends toward ideal body weight, glucose/ nutrition related labs normalize.
--- NOTE | 2017-03-22 12:19 | Progress Notes ---
DATE: SUBJECTIVE: The patient seen, chart reviewed, discussed with staff. The patient is currently here for disorientation, confusion, still does not know why she is here. She remains very demanding, noted to be agitated, yells at times, got Ativan last night due to unruly behaviors, angry behaviors. Staff was concerned that she was escalating. The patient noted to be sleeping fairly well. She states she slept 8 hours last night, but notes that her mood is "not good." She would like to be put back on Seroquel. She states that she takes Seroquel regularly. PLAN: We will continue to monitor. Restart Seroquel. Given her ongoing symptoms, she is not safe for discharge. [facility]# [id number]
[2017-03-22] MEDS ORDERED: Potassium Chloride 20 mEq ER Tab PO ONE (14:54)
[2017-03-23] MEDS: INSULIN ASPART SLIDING SCALE 100 UNITS/ML UNIT SUBQ SCH ×3 (06:36→21:09)
[2017-03-23] MEDS: Aspirin 81mg Chewable Tab PO SCH (09:33)
[2017-03-23] MEDS: Multivitamin Tab PO SCH (09:34)
[2017-03-23] MEDS: Ferrous Sulfate 325 MG TAB PO SCH ×2 (09:34→18:18)
[2017-03-23] MEDS: Hydrocodone/APAP 10 mg/325 mg Tab PO PRN (18:16)
--- NOTE | 2017-03-23 21:47 | Internal Medicine Prog Note ---
Internal Medicine Subjective - Subjective Service Date: 03/23/17 Patient seen and examined:: with staff Patient is:: awake, verbal, confused Per staff patient has:: no adverse event, tolerating meds Internal Medicine Objective - Results Result Diagrams: 03/22/17 06:40 Recent Labs: Laboratory Last Values Sodium 135 mEq/L (136-145) L 03/22/17 06:40 Potassium 3.0 mEq/L (3.5-5.1) L 03/22/17 06:40 Chloride 94 mEq/L (98-107) L 03/22/17 06:40 Carbon Dioxide 36.4 mEq/L (21.0-31.0) H 03/22/17 06:40 Anion Gap 7.6 (7.0-16.0) 03/22/17 06:40 BUN 24 mg/dL (7-25) 03/22/17 06:40 Creatinine 1.2 mg/dL (0.6-1.2) 03/22/17 06:40 Est GFR ( Amer) 58.0 ml/min (>90) 03/22/17 06:40 Est GFR (Non-Af Amer) 47.9 ml/min 03/22/17 06:40 BUN/Creatinine Ratio 20.0 03/22/17 06:40 Glucose 140 mg/dL (70-105) H 03/22/17 06:40 POC Glucose 189 MG/DL (70 - 105) H 03/23/17 20:30 Calcium 9.1 mg/dL (8.6-10.3) 03/22/17 06:40 - Physical Exam Vitals and I&O: Vital Signs Temp 98.3 F 03/23/17 20:31 Pulse 100 03/23/17 21:07 Resp 20 03/23/17 20:31 BP 107/69 03/23/17 21:07 Pulse Ox 95 03/23/17 20:31 Intake & Output 03/23/17 03/23/17 03/24/17 06:59 18:59 06:59 Intake Total 120 1880 Balance 120 1880 Intake: Oral 120 1880 Other: # Voids 3 1 # Bowel Movements 0 2 Stool Characteristics Soft Soft Active Medications: Current Medications Acetaminophen (Tylenol) 650 mg PO Q4HR PRN PRN Reason: Mild Pain / Temp above 100 Stop: 05/20/17 00:20 Last Admin: 03/22/17 20:47 Dose: 650 mg Acetaminophen/Hydrocodone Bitart ([place] 10 Mg/325 Mg) 1 tab PO Q4H PRN PRN Reason: Pain (Severe) Stop: 05/20/17 03:32 Last Admin: 03/23/17 18:16 Dose: 1 tab Al Hydrox/Mg Hydrox/Simethicone (Maalox) 30 ml PO Q4HR PRN PRN Reason: GI DISTRESS Stop: 05/20/17 00:20 Amlodipine Besylate (Norvasc) 10 mg PO DAILY [facility] Stop: 05/20/17 08:59 Last Admin: 03/23/17 09:43 Dose: Not Given Aspirin (Aspirin Chewable) 81 mg PO DAILY [facility] Stop: 05/20/17 08:59 Last Admin: 03/23/17 09:33 Dose: 81 mg Diphenhydramine HCl (Benadryl) 25 mg PO Q6HR PRN PRN Reason: Itching Stop: 05/20/17 05:02 Divalproex Sodium (Depakote Dr) 500 mg PO HS JASEN PRN Reason: Protocol Stop: 05/20/17 20:59 Last Admin: 03/23/17 21:07 Dose: 500 mg Docusate Sodium (Colace) 100 mg PO BID [facility] Stop: 05/20/17 08:59 Last Admin: 03/23/17 18:17 Dose: 100 mg Escitalopram Oxalate (Lexapro) 20 mg PO DAILY JASEN PRN Reason: Protocol Stop: 05/20/17 08:59 Last Admin: 03/23/17 09:33 Dose: 20 mg Ferrous Sulfate (Iron) 325 mg PO BID [facility] Stop: 05/20/17 08:59 Last Admin: 03/23/17 18:18 Dose: 325 mg Furosemide (Lasix) 40 mg PO DAILY [facility] Stop: 05/20/17 08:59 Last Admin: 03/23/17 09:43 Dose: Not Given Hydrochlorothiazide (Hctz) 25 mg PO DAILY [facility] Stop: 05/20/17 08:59 Last Admin: 03/23/17 09:51 Dose: Not Given Insulin Aspart (Novolog Insulin Sliding Scale) 0 units SUBQ ACHS JASEN PRN Reason: Protocol Stop: 05/20/17 07:29 Last Admin: 03/23/17 21:09 Dose: 2 units Lorazepam (Ativan) 0.5 mg PO Q4HR PRN; Protocol PRN Reason: Anxiety Stop: 04/20/17 00:20 Last Admin: 03/22/17 09:06 Dose: 0.5 mg Losartan Potassium (Cozaar) 50 mg PO HS JASEN Stop: 05/20/17 20:59 Last Admin: 03/23/17 21:07 Dose: 50 mg Magnesium Hydroxide (Milk Of Magnesia) 30 ml PO HS PRN PRN Reason: Constipation Metformin HCl (Glucophage) 500 mg PO DAILY [facility] Stop: 05/20/17 08:59 Last Admin: 03/23/17 09:34 Dose: 500 mg Multivitamins/Vitamin C (Theragran) 1 tab PO DAILY [facility] Stop: 05/20/17 08:59 Last Admin: 03/23/17 09:34 Dose: 1 tab Oxybutynin Chloride (Ditropan) 5 mg PO BID [facility] Stop: 05/20/17 08:59 Last Admin: 03/23/17 18:17 Dose: 5 mg Quetiapine Fumarate (Seroquel) 50 mg PO HS JASEN PRN Reason: Protocol Stop: 05/21/17 20:59 Last Admin: 03/23/17 21:07 Dose: 50 mg Zolpidem Tartrate (Ambien) 5 mg PO HS PRN PRN Reason: Insomnia Stop: 05/20/17 00:20 Last Admin: 03/22/17 20:47 Dose: 5 mg General: alert HEENT: NC/AT, PERRLA Neck: Supple Lungs: CTAB Cardiovascular: RRR, Normal S1, Normal S2 Abdomen: soft, non-tender, non-distended, positive bowel sound Neurological: alert Internal Medicine Assmt/Plan - Assessment Assessment: Atrial fibrillation (Acute) I48.91 Bipolar disorder (Acute) CKD (chronic kidney disease) (Acute) N18.9 Diabetes mellitus (Acute) E11.9 HTN (hypertension) (Acute) I10 Hyperlipemia (Acute) E78.5 Obesity (Acute) E66.9 ABNORMAL LAB RESULTS, NONCOMPLIANT, DIZZ (Acute) - Plan Plan: cpm Nutritional Asmnt/Malnutr-PDOC - Dietary Evaluation Malnutrition Findings (Please click <Entered> for more info): Nutritional Asmnt/Malnutrition Start: 03/21/17 10: 45 Text: Status: Complete Freq: Document 03/21/17 10:45 JOHNNA (Rec: 03/21/17 11:09 JOHNNA SOL- [email or web address]) Nutritional Asmnt/Malnutrition Patient General Information Nutritional Screening Consult Diagnosis Psychosis NOS Pertinent Medical Hx/Surgical Hx DM, HTN, incontinence of urine . Subjective Information Consult received for BG 189 on admission. Patient was transferred from [facility] to [facility] on 5150 hold. Per nursing notes, patient was refusing care/ medication and uncooperative. Seen by RD on 03/20 in TELE. Reviewed dinner menu with patient to pick her options to further compliance with eating meals. Current Diet Order/ Nutrition Support 60gm CCHO Patient / S.O Not Indicated Pertinent Medications Maalox, colace, iron, lasix, Novolog, Cozaar, MOM, Metformin, Theragran Pertinent Labs (03/20) Na 131, K 2.8, Glucose ranging 146-244, Albumin 3.6 (HGA1C 7.2) Nutritional Hx/Data Height 1.7 m Height (Calculated Centimeters) 170.2 Current Weight (lbs) 129.274 kg Weight (Calculated Kilograms) 129.3 Weight (Calculated Grams) 611107.8 [place] Body Weight 135 % [place] Body Weight 211 Recent Weight Change No Weight Status Morbidly Obese GI Symptoms GI Symptoms None Food Allergies No Cultural/Ethnic/Congregation Belief None indicated Usual diet at home unknown Skin Integrity/Comment: Kumar 19, intact Current %PO Good (75-100%) Estimated Nutritional Goals BEE in Kcals: Adj wt of IBW Calories/Kcals/Kg Adj body weight- 78.4kg (25-30 gm/kg) - weight loss Kcals Calculated 7618-6026 kcal/day Protein: Adj wt of IBW Protein g/kg: Adj body weight- 78.4kg (1-1.2 gm/kg) - underfeeding Protein Calculated 80-95 gm/day Fluid: ml 2259-5300 ml/day (1 ml/kcal) Nutritional Problem 2. Problem Problem Altered nutrition related lab values related to Etiology electrolyte imbalance/ uncontrolled hyperglycemia aeb Signs/Symptoms: Na 131, K 2.8, Glucose ranging 146-244 1. Problem Problem Malnutrition related to Etiology morbid obesity aeb Signs/Symptoms: BMI 44.6 kg/m^2 Malnutrition Related to Morbid Obesity Malnutrition related to morbid obesity BMI> or equal to 40 Query Text:(Any 1 Criteria met) Malnutrition related to morbid obesity Yes Intervention/Recommendation Comments 1. Continue 60 gm CCHO diet as tolerated by patient. 2. MD to adjust insulin regimen for optimal glycemic control. 3. Diet is liberalized for electrolytes: MD to replace lytes as needed and consider fluid restriction for Hyponatremia. Expected Outcomes/Goals Expected Outcomes/Goals Oral intake to meet >75% of estimated nutrient needs, weight stable or trends toward ideal body weight, glucose/ nutrition related labs normalize.
--- NOTE | 2017-03-24 01:57 | Progress Notes ---
DATE: 03/23/[address] Solomon. Case was discussed with staff of the patient, reviewed records. This is a 66-year-old female patient who was confused. She knows she is in the hospital, she knew the year, does not know why she was brought to the hospital. She was confused about this issue. She knows she is eating fairly well, sleeping well. Denying any thoughts of hopelessness, no despair. She was brought in on hold. She was apparently paranoid, refusing medication, not cooperative, resisting, cursing and disorganized. When I talked to her, she was unable to tell me why she was here. She says she never met Dr. Solomon. Does not know why she is here. She is still considered to be unpredictable, impulsive. She was diagnosed with psychosis by Dr. Kennedy, and he saw her in the last 2 days and she is on Depakote 500 mg at bedtime that was initiated by Dr. Solomon ____ Lexapro 20 mg a day and Seroquel 50 mg at bedtime with no side effects, no sedation, no nausea, no extrapyramidal symptoms. We will continue to work with the patient in group therapy, milieu therapy, adjust medication as needed. JOB# [id number]
[2017-03-24] MEDS: Hydrocodone/APAP 10 mg/325 mg Tab PO PRN ×4 (06:13→22:05)
[2017-03-24] MEDS: INSULIN ASPART SLIDING SCALE 100 UNITS/ML UNIT SUBQ SCH ×4 (06:43→20:33)
--- NOTE | 2017-03-24 08:48 | General Progress Note ---
Subjective - Review of Systems Events since last encounter: patient awake alert in no acute distress Objective - Results Result Diagrams: 03/22/17 06:40 Recent Labs: Laboratory Last Values Sodium 135 mEq/L (136-145) L 03/22/17 06:40 Potassium 3.0 mEq/L (3.5-5.1) L 03/22/17 06:40 Chloride 94 mEq/L (98-107) L 03/22/17 06:40 Carbon Dioxide 36.4 mEq/L (21.0-31.0) H 03/22/17 06:40 Anion Gap 7.6 (7.0-16.0) 03/22/17 06:40 BUN 24 mg/dL (7-25) 03/22/17 06:40 Creatinine 1.2 mg/dL (0.6-1.2) 03/22/17 06:40 Est GFR ( Amer) 58.0 ml/min (>90) 03/22/17 06:40 Est GFR (Non-Af Amer) 47.9 ml/min 03/22/17 06:40 BUN/Creatinine Ratio 20.0 03/22/17 06:40 Glucose 140 mg/dL (70-105) H 03/22/17 06:40 POC Glucose 131 MG/DL (70 - 105) H 03/24/17 06:16 Calcium 9.1 mg/dL (8.6-10.3) 03/22/17 06:40 - Physical Exam Vitals and I&O: Vital Signs Temp 98.2 F 03/24/17 06:28 Pulse 102 03/24/17 06:28 Resp 19 03/24/17 06:28 BP 105/70 03/24/17 06:28 Pulse Ox 95 03/24/17 06:28 Intake & Output 03/23/17 03/24/17 03/24/17 18:59 06:59 18:59 Intake Total 2059 Balance 2059 Intake: Oral 2059 Other: # Voids 2 # Bowel Movements 0 Stool Characteristics Soft Active Medications: Current Medications Acetaminophen (Tylenol) 650 mg PO Q4HR PRN PRN Reason: Mild Pain / Temp above 100 Stop: 05/20/17 00:20 Last Admin: 03/22/17 20:47 Dose: 650 mg Acetaminophen/Hydrocodone Bitart ([place] 10 Mg/325 Mg) 1 tab PO Q4H PRN PRN Reason: Pain (Severe) Stop: 05/20/17 03:32 Last Admin: 03/24/17 06:13 Dose: 1 tab Al Hydrox/Mg Hydrox/Simethicone (Maalox) 30 ml PO Q4HR PRN PRN Reason: GI DISTRESS Stop: 05/20/17 00:20 Amlodipine Besylate (Norvasc) 10 mg PO DAILY [facility] Stop: 05/20/17 08:59 Last Admin: 03/23/17 09:43 Dose: Not Given Aspirin (Aspirin Chewable) 81 mg PO DAILY [facility] Stop: 05/20/17 08:59 Last Admin: 03/23/17 09:33 Dose: 81 mg Diphenhydramine HCl (Benadryl) 25 mg PO Q6HR PRN PRN Reason: Itching Stop: 05/20/17 05:02 Divalproex Sodium (Depakote Dr) 500 mg PO HS JASEN PRN Reason: Protocol Stop: 05/20/17 20:59 Last Admin: 03/23/17 21:07 Dose: 500 mg Docusate Sodium (Colace) 100 mg PO BID [facility] Stop: 05/20/17 08:59 Last Admin: 03/23/17 18:17 Dose: 100 mg Escitalopram Oxalate (Lexapro) 20 mg PO DAILY JASEN PRN Reason: Protocol Stop: 05/20/17 08:59 Last Admin: 03/23/17 09:33 Dose: 20 mg Ferrous Sulfate (Iron) 325 mg PO BID [facility] Stop: 05/20/17 08:59 Last Admin: 03/23/17 18:18 Dose: 325 mg Furosemide (Lasix) 40 mg PO DAILY [facility] Stop: 05/20/17 08:59 Last Admin: 03/23/17 09:43 Dose: Not Given Hydrochlorothiazide (Hctz) 25 mg PO DAILY [facility] Stop: 05/20/17 08:59 Last Admin: 03/23/17 09:51 Dose: Not Given Insulin Aspart (Novolog Insulin Sliding Scale) 0 units SUBQ ACHS JASEN PRN Reason: Protocol Stop: 05/20/17 07:29 Last Admin: 03/24/17 06:43 Dose: Not Given Lorazepam (Ativan) 0.5 mg PO Q4HR PRN; Protocol PRN Reason: Anxiety Stop: 04/20/17 00:20 Last Admin: 03/22/17 09:06 Dose: 0.5 mg Losartan Potassium (Cozaar) 50 mg PO HS JASEN Stop: 05/20/17 20:59 Last Admin: 03/23/17 21:07 Dose: 50 mg Magnesium Hydroxide (Milk Of Magnesia) 30 ml PO HS PRN PRN Reason: Constipation Metformin HCl (Glucophage) 500 mg PO DAILY JASEN Stop: 05/20/17 08:59 Last Admin: 03/23/17 09:34 Dose: 500 mg Multivitamins/Vitamin C (Theragran) 1 tab PO DAILY JASEN Stop: 05/20/17 08:59 Last Admin: 03/23/17 09:34 Dose: 1 tab Oxybutynin Chloride (Ditropan) 5 mg PO BID JASEN Stop: 05/20/17 08:59 Last Admin: 03/23/17 18:17 Dose: 5 mg Quetiapine Fumarate (Seroquel) 50 mg PO HS JASEN PRN Reason: Protocol Stop: 05/21/17 20:59 Last Admin: 03/23/17 21:07 Dose: 50 mg Zolpidem Tartrate (Ambien) 5 mg PO HS PRN PRN Reason: Insomnia Stop: 05/20/17 00:20 Last Admin: 03/22/17 20:47 Dose: 5 mg General: No acute distress HEENT: Atraumatic, PERRLA Neck: Supple Cardiovascular: Regular rate, Normal S1 Assessment/Plan - Problem List Patient Problems: All Active Problems Atrial fibrillation (Acute) I48.91 Bipolar disorder (Acute) CKD (chronic kidney disease) (Acute) N18.9 Diabetes mellitus (Acute) E11.9 HTN (hypertension) (Acute) I10 Hyperlipemia (Acute) E78.5 Obesity (Acute) E66.9 ABNORMAL LAB RESULTS, NONCOMPLIANT, DIZZ (Acute) - Assessment Assessment: Atrial fibrillation (Acute) I48.91 Bipolar disorder (Acute) CKD (chronic kidney disease) (Acute) N18.9 Diabetes mellitus (Acute) E11.9 HTN (hypertension) (Acute) I10 Hyperlipemia (Acute) E78.5 Obesity (Acute) E66.9 ABNORMAL LAB RESULTS, NONCOMPLIANT, DIZZ (Acute) - Plan Plan: cpm Nutritional Asmnt/Malnutr-PDOC - Dietary Evaluation Malnutrition Findings (Please click <Entered> for more info): Nutritional Asmnt/Malnutrition Start: 03/21/17 10: 45 Text: Status: Complete Freq: Document 03/21/17 10:45 JOHNNA (Rec: 03/21/17 11:09 JOHNAN EBENEZER- FNS1) Nutritional Asmnt/Malnutrition Patient General Information Nutritional Screening Consult Diagnosis Psychosis NOS Pertinent Medical Hx/Surgical Hx DM, HTN, incontinence of urine . Subjective Information Consult received for BG 189 on admission. Patient was transferred from [facility] to [facility] on 5150 hold. Per nursing notes, patient was refusing care/ medication and uncooperative. Seen by RD on 03/20 in TELE. Reviewed dinner menu with patient to pick her options to further compliance with eating meals. Current Diet Order/ Nutrition Support 60gm CCHO Patient / S.O Not Indicated Pertinent Medications Maalox, colace, iron, lasix, Novolog, Cozaar, MOM, Metformin, Theragran Pertinent Labs (03/20) Na 131, K 2.8, Glucose ranging 146-244, Albumin 3.6 (HGA1C 7.2) Nutritional Hx/Data Height 1.7 m Height (Calculated Centimeters) 170.2 Current Weight (lbs) 129.274 kg Weight (Calculated Kilograms) 129.3 Weight (Calculated Grams) 551808.8 [place] Body Weight 135 % [place] Body Weight 211 Recent Weight Change No Weight Status Morbidly Obese GI Symptoms GI Symptoms None Food Allergies No Cultural/Ethnic/P[employer]ostal Belief None indicated Usual diet at home unknown Skin Integrity/Comment: Kumar 19, intact Current %PO Good (75-100%) Estimated Nutritional Goals BEE in Kcals: Adj wt of IBW Calories/Kcals/Kg Adj body weight- 78.4kg (25-30 gm/kg) - weight loss Kcals Calculated 7302-7557 kcal/day Protein: Adj wt of IBW Protein g/kg: Adj body weight- 78.4kg (1-1.2 gm/kg) - underfeeding Protein Calculated 80-95 gm/day Fluid: ml 5887-6317 ml/day (1 ml/kcal) Nutritional Problem 2. Problem Problem Altered nutrition related lab values related to Etiology electrolyte imbalance/ uncontrolled hyperglycemia aeb Signs/Symptoms: Na 131, K 2.8, Glucose ranging 146-244 1. Problem Problem Malnutrition related to Etiology morbid obesity aeb Signs/Symptoms: BMI 44.6 kg/m^2 Malnutrition Related to Morbid Obesity Malnutrition related to morbid obesity BMI> or equal to 40 Query Text:(Any 1 Criteria met) Malnutrition related to morbid obesity Yes Intervention/Recommendation Comments 1. Continue 60 gm CCHO diet as tolerated by patient. 2. MD to adjust insulin regimen for optimal glycemic control. 3. Diet is liberalized for electrolytes: MD to replace lytes as needed and consider fluid restriction for Hyponatremia. Expected Outcomes/Goals Expected Outcomes/Goals Oral intake to meet >75% of estimated nutrient needs, weight stable or trends toward ideal body weight, glucose/ nutrition related labs normalize.
[2017-03-24] MEDS: Ferrous Sulfate 325 MG TAB PO SCH ×2 (09:38→16:11)
[2017-03-24] MEDS: Aspirin 81mg Chewable Tab PO SCH (09:39)
[2017-03-24] MEDS: Multivitamin Tab PO SCH (09:39)
--- NOTE | 2017-03-24 17:19 | History and Physical ---
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: Report: Peripheral neuropathy GI: Report: Diverticulosis Musculoskeletal: Report: Low Back Pain Rheumatologic: Report: Fibromyalgia Family Medical History - Family Member Mother History Unknown: Yes Hx Family Cancer: No Hx Family Coronary Artery Disease: No Hx Family Congestive Heart Failure: No Hx Family Hypertension: No Hx Family Stroke: No Hx Family Diabetes: No Hx Family Dementia: No Hx Family AIDS: No Hx Family COPD: No Hx Family Psychiatric Problems: No Hx Family Tuberculosis: No Social History Smoke: No Alcohol: Occassional Drugs: None Lives: [facility] Health Maintenance Health Maintenance: Cholesterol - Medications Home Medications: Home Medication Medication Instructions Recorded Type Aspirin [Aspirin Chewable] 81 mg PO DAILY 03/19/17 History Diphenhydramine HCL [Benadryl] 25 mg PO Q6H PRN 03/19/17 History Divalproex Sodium [Depakote] 1,000 mg PO HS 03/19/17 History Docusate Sodium [Colace] 100 mg PO BID 03/19/17 History Escitalopram Oxalate [Lexapro] 20 mg PO DAILY 03/19/17 History Ferrous Sulfate [Iron] 325 mg PO BID 03/19/17 History Furosemide [Lasix] 40 mg PO DAILY 03/19/17 History Hydrochlorothiazide [Hctz*] 25 mg PO DAILY 03/19/17 History Hydrocodone/APAP 10 mg/325 mg 1 tab PO Q4H PRN 03/19/17 History [[place] 10 mg/325 mg] Insulin Human Regular [NovoLIN R] 0 units SUBQ ACHS 03/19/17 History Ipratropium/Albuterol Sulfate 3 ml IH Q6H PRN 03/19/17 History [Iprat-Albut 0.5-3(2.5) mg/3 ml] Lorazepam [Ativan] 1 mg PO Q6H PRN 03/19/17 History Losartan Potassium [Cozaar] 50 mg PO HS 03/19/17 History Magnesium Hydroxide [Milk of 30 ml PO Q6H PRN 03/19/17 History Magnesia] Oxybutynin Chloride [Ditropan*] 5 mg PO BID 03/19/17 History amLODIPine Besylate [Norvasc*] 10 mg PO DAILY 03/19/17 History metFORMIN [Glucophage] 500 mg PO BID 03/19/17 History - Allergies Allergies/Adverse Reactions: Allergies Allergy/AdvReac Type Severity Reaction Status Date / Time Penicillins Allergy Verified 03/19/17 13:43 Review of Systems - Review of Systems Constitutional: Report: Weakness, Malaise Eyes: Report: No Significant Respiratory: Report: No Significant, Cough, Wheezing Cardiovascular: Report: Orthopnea, Paroxysmal Noc. Dyspnea Neurological: Report: Weakness, Numbness, Confusion Physical Exam - Physical Exam Neck: Report: Within normal limits Cardiovascular Systems: Report: +s1/s2 noted Respiratory: Report: Breath Sounds are within normal limits Abdomen: Report: Non-tender to palpation Back: Report: Inspection of back is within normal limits. Extremities: Report: Non-tender to palpation. Skin: Report: Color of skin is within normal limits Neuro/Psych: Report: CN II-XII intact, Depressed affect, Weakness or sensory loss noted. - Lab Results All Lab Results last 24 hours: Laboratory Results - last 24 hr 03/23/17 03/23/17 03/24/17 17:34 20:30 06:16 POC Glucose 122 H 189 H 131 H 03/24/17 03/24/17 12:11 16:52 POC Glucose 157 H 186 H - Assessment Assessment: depression Atrial fibrillation (Acute) I48.91 Bipolar disorder (Acute) CKD (chronic kidney disease) (Acute) N18.9 Diabetes mellitus (Acute) E11.9 HTN (hypertension) (Acute) I10 Hyperlipemia (Acute) E78.5 Obesity (Acute) E66.9 ABNORMAL LAB RESULTS, NONCOMPLIANT, DIZZ (Acute) - Plan Plan: as per psych i will f/u bp ckd etc
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
[2017-03-25] MEDS: Hydrocodone/APAP 10 mg/325 mg Tab PO PRN ×4 (06:13→20:20)
[2017-03-25] MEDS: INSULIN ASPART SLIDING SCALE 100 UNITS/ML UNIT SUBQ SCH ×4 (06:30→20:19)
[2017-03-25] MEDS: Aspirin 81mg Chewable Tab PO SCH (08:18)
[2017-03-25] MEDS: Ferrous Sulfate 325 MG TAB PO SCH ×2 (08:18→16:17)
[2017-03-25] MEDS: Multivitamin Tab PO SCH (08:19)
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
[2017-03-26] MEDS: Hydrocodone/APAP 10 mg/325 mg Tab PO PRN ×3 (06:10→17:24)
[2017-03-26] MEDS: INSULIN ASPART SLIDING SCALE 100 UNITS/ML UNIT SUBQ SCH ×4 (06:40→20:02)
[2017-03-26] MEDS: Ferrous Sulfate 325 MG TAB PO SCH ×2 (08:41→17:24)
[2017-03-26] MEDS: Multivitamin Tab PO SCH (08:41)
[2017-03-26] MEDS: Aspirin 81mg Chewable Tab PO SCH (08:41)
--- NOTE | 2017-03-26 15:33 | General Progress Note ---
Subjective - Review of Systems Events since last encounter: patient is anxious paranoid denies pain Objective - Results Result Diagrams: 03/22/17 06:40 Recent Labs: Laboratory Last Values Sodium 135 mEq/L (136-145) L 03/22/17 06:40 Potassium 3.0 mEq/L (3.5-5.1) L 03/22/17 06:40 Chloride 94 mEq/L (98-107) L 03/22/17 06:40 Carbon Dioxide 36.4 mEq/L (21.0-31.0) H 03/22/17 06:40 Anion Gap 7.6 (7.0-16.0) 03/22/17 06:40 BUN 24 mg/dL (7-25) 03/22/17 06:40 Creatinine 1.2 mg/dL (0.6-1.2) 03/22/17 06:40 Est GFR ( Amer) 58.0 ml/min (>90) 03/22/17 06:40 Est GFR (Non-Af Amer) 47.9 ml/min 03/22/17 06:40 BUN/Creatinine Ratio 20.0 03/22/17 06:40 Glucose 140 mg/dL (70-105) H 03/22/17 06:40 POC Glucose 137 MG/DL (70 - 105) H 03/26/17 11:37 Calcium 9.1 mg/dL (8.6-10.3) 03/22/17 06:40 - Physical Exam Vitals and I&O: Vital Signs Temp 97 F 03/26/17 06:39 Pulse 101 03/26/17 08:39 Resp 20 03/26/17 06:39 BP 116/70 03/26/17 08:40 Pulse Ox 98 03/26/17 06:39 Intake & Output 03/25/17 03/26/17 03/26/17 18:59 06:59 18:59 Intake Total 120 Balance 120 Intake: Oral 120 Other: # Voids 3 Stool Characteristics Soft Active Medications: Current Medications Acetaminophen (Tylenol) 650 mg PO Q4HR PRN PRN Reason: Mild Pain / Temp above 100 Stop: 05/20/17 00:20 Last Admin: 03/22/17 20:47 Dose: 650 mg Acetaminophen/Hydrocodone Bitart (Kenner 10 Mg/325 Mg) 1 tab PO Q4H PRN PRN Reason: Pain (Severe) Stop: 05/20/17 03:32 Last Admin: 03/26/17 10:41 Dose: 1 tab Al Hydrox/Mg Hydrox/Simethicone (Maalox) 30 ml PO Q4HR PRN PRN Reason: GI DISTRESS Stop: 05/20/17 00:20 Amlodipine Besylate (Norvasc) 10 mg PO DAILY JASEN Stop: 05/20/17 08:59 Last Admin: 03/26/17 08:39 Dose: 10 mg Aspirin (Aspirin Chewable) 81 mg PO DAILY JASEN Stop: 05/20/17 08:59 Last Admin: 03/26/17 08:41 Dose: 81 mg Bacitracin (Baciquent) 1 appl TP DAILY JASEN Stop: 05/24/17 08:59 Last Admin: 03/26/17 08:43 Dose: 1 appl Diphenhydramine HCl (Benadryl) 25 mg PO Q6HR PRN PRN Reason: Itching Stop: 05/20/17 05:02 Divalproex Sodium (Depakote Dr) 500 mg PO HS JASEN PRN Reason: Protocol Stop: 05/20/17 20:59 Last Admin: 03/25/17 20:19 Dose: 500 mg Docusate Sodium (Colace) 100 mg PO BID [facility] Stop: 05/20/17 08:59 Last Admin: 03/26/17 08:35 Dose: Not Given Escitalopram Oxalate (Lexapro) 20 mg PO DAILY JASEN PRN Reason: Protocol Stop: 05/20/17 08:59 Last Admin: 03/26/17 08:43 Dose: 20 mg Ferrous Sulfate (Iron) 325 mg PO BID JASEN Stop: 05/20/17 08:59 Last Admin: 03/26/17 08:41 Dose: 325 mg Furosemide (Lasix) 40 mg PO DAILY JASEN Stop: 05/20/17 08:59 Last Admin: 03/26/17 08:40 Dose: 40 mg Hydrochlorothiazide (Hctz) 25 mg PO DAILY JASEN Stop: 05/20/17 08:59 Last Admin: 03/26/17 08:40 Dose: 25 mg Insulin Aspart (Novolog Insulin Sliding Scale) 0 units SUBQ ACHS JASEN PRN Reason: Protocol Stop: 05/20/17 07:29 Last Admin: 03/26/17 11:30 Dose: Not Given Lorazepam (Ativan) 0.5 mg PO Q4HR PRN; Protocol PRN Reason: Anxiety Stop: 04/20/17 00:20 Last Admin: 03/22/17 09:06 Dose: 0.5 mg Losartan Potassium (Cozaar) 50 mg PO HS JASEN Stop: 05/20/17 20:59 Last Admin: 03/25/17 20:20 Dose: 50 mg Magnesium Hydroxide (Milk Of Magnesia) 30 ml PO HS PRN PRN Reason: Constipation Metformin HCl (Glucophage) 500 mg PO DAILY JASEN Stop: 05/20/17 08:59 Last Admin: 03/26/17 08:40 Dose: 500 mg Multivitamins/Vitamin C (Theragran) 1 tab PO DAILY JASEN Stop: 05/20/17 08:59 Last Admin: 03/26/17 08:41 Dose: 1 tab Oxybutynin Chloride (Ditropan) 5 mg PO BID JASEN Stop: 05/20/17 08:59 Last Admin: 03/26/17 08:42 Dose: 5 mg Quetiapine Fumarate (Seroquel) 50 mg PO HS JASEN PRN Reason: Protocol Stop: 05/21/17 20:59 Last Admin: 03/25/17 20:20 Dose: 50 mg Quetiapine Fumarate (Seroquel) 25 mg PO DAILY JASEN PRN Reason: Protocol Stop: 05/25/17 08:59 Last Admin: 03/26/17 09:14 Dose: 25 mg Zolpidem Tartrate (Ambien) 5 mg PO HS PRN PRN Reason: Insomnia Stop: 05/20/17 00:20 Last Admin: 03/25/17 21:03 Dose: 5 mg General: No acute distress HEENT: Atraumatic, PERRLA Neck: Supple Cardiovascular: Regular rate, Normal S1 Assessment/Plan - Problem List Patient Problems: All Active Problems Atrial fibrillation (Acute) I48.91 Bipolar disorder (Acute) CKD (chronic kidney disease) (Acute) N18.9 Diabetes mellitus (Acute) E11.9 HTN (hypertension) (Acute) I10 Hyperlipemia (Acute) E78.5 Obesity (Acute) E66.9 ABNORMAL LAB RESULTS, NONCOMPLIANT, DIZZ (Acute) - Assessment Assessment: Atrial fibrillation (Acute) I48.91 Bipolar disorder (Acute) CKD (chronic kidney disease) (Acute) N18.9 Diabetes mellitus (Acute) E11.9 HTN (hypertension) (Acute) I10 Hyperlipemia (Acute) E78.5 Obesity (Acute) E66.9 ABNORMAL LAB RESULTS, NONCOMPLIANT, DIZZ (Acute) - Plan Plan: cpm Nutritional Asmnt/Malnutr-PDOC - Dietary Evaluation Malnutrition Findings (Please click <Entered> for more info): Nutritional Asmnt/Malnutrition Start: 03/21/17 10: 45 Text: Status: Complete Freq: Document 03/21/17 10:45 MMULHERN (Rec: 03/21/17 11:09 MMULHERN EBENEZER- FN) Nutritional Asmnt/Malnutrition Patient General Information Nutritional Screening Consult Diagnosis Psychosis NOS Pertinent Medical Hx/Surgical Hx DM, HTN, incontinence of urine . Subjective Information Consult received for BG 189 on admission. Patient was transferred from [facility] to [facility] on 5150 hold. Per nursing notes, patient was refusing care/ medication and uncooperative. Seen by RD on 03/20 in TELE. Reviewed dinner menu with patient to pick her options to further compliance with eating meals. Current Diet Order/ Nutrition Support [facility] / S.[facility] Not Indicated Pertinent Medications Maalox, colace, iron, lasix, Novolog, Cozaar, MOM, Metformin, Theragran Pertinent Labs (03/20) Na 131, K 2.8, Glucose ranging 146-244, Albumin 3.6 (HGA1C 7.2) Nutritional Hx/Data Height 1.7 m Height (Calculated Centimeters) 170.2 Current Weight (lbs) 129.274 kg Weight (Calculated Kilograms) 129.3 Weight (Calculated Grams) 285402.8 Wood Body Weight 135 % Wood Body Weight 211 Recent Weight Change No Weight Status Morbidly Obese GI Symptoms GI Symptoms None Food Allergies No Cultural/Ethnic/Evangelical Belief None indicated Usual diet at home unknown Skin Integrity/Comment: Kumar 19, intact Current %PO Good (75-100%) Estimated Nutritional Goals BEE in Kcals: Adj wt of IBW Calories/Kcals/Kg Adj body weight- 78.4kg (25-30 gm/kg) - weight loss Kcals Calculated 8615-5207 kcal/day Protein: Adj wt of IBW Protein g/kg: Adj body weight- 78.4kg (1-1.2 gm/kg) - underfeeding Protein Calculated 80-95 gm/day Fluid: ml 5409-1750 ml/day (1 ml/kcal) Nutritional Problem 2. Problem Problem Altered nutrition related lab values related to Etiology electrolyte imbalance/ uncontrolled hyperglycemia aeb Signs/Symptoms: Na 131, K 2.8, Glucose ranging 146-244 1. Problem Problem Malnutrition related to Etiology morbid obesity aeb Signs/Symptoms: BMI 44.6 kg/m^2 Malnutrition Related to Morbid Obesity Malnutrition related to morbid obesity BMI> or equal to 40 Query Text:(Any 1 Criteria met) Malnutrition related to morbid obesity Yes Intervention/Recommendation Comments 1. Continue 60 gm CCHO diet as tolerated by patient. 2. MD to adjust insulin regimen for optimal glycemic control. 3. Diet is liberalized for electrolytes: MD to replace lytes as needed and consider fluid restriction for Hyponatremia. Expected Outcomes/Goals Expected Outcomes/Goals Oral intake to meet >75% of estimated nutrient needs, weight stable or trends toward ideal body weight, glucose/ nutrition related labs normalize.
--- NOTE | 2017-03-27 01:16 | Progress Notes ---
DATE: 03/26/2017 SUBJECTIVE: Chart reviewed and the patient interviewed. Also, discussed the patient's condition with the staff and reviewed the records and labs. The patient continued to be anxious and she is still suspicious and paranoid. The patient also is withdrawn and her interaction with others is minimum. She also is easily irritable and easily agitated. She also gets angry and irritable for minor things. The patient also at times needs redirections because of anger and irritability. Otherwise, the patient is compliant with taking her medications and patient denies any side effects of medications. ASSESSMENT: The patient is still psychotic and needs close monitoring. TREATMENT PLAN: Continue to monitor her behavior and her condition closely. Also, continue to work on her isolation and her paranoia. Also, encouraged the patient to interact slightly more working on her poor impulse control. Also, the patient continued to take Depakote 50 mg at bedtime and Celexa 20 mg every day with no side effects. Also, Seroquel is giving in a dose of 50 mg at bedtime. We will increase Seroquel to 25 mg in the morning and 50 mg at bedtime and we will continue to follow closely. JOB# [id number]
[2017-03-27] MEDS: INSULIN ASPART SLIDING SCALE 100 UNITS/ML UNIT SUBQ SCH ×3 (06:39→17:20)
[2017-03-27] MEDS: Hydrocodone/APAP 10 mg/325 mg Tab PO PRN ×2 (08:20→12:34)
[2017-03-27] MEDS: Multivitamin Tab PO SCH (08:52)
[2017-03-27] MEDS: Aspirin 81mg Chewable Tab PO SCH (08:52)
[2017-03-27] MEDS: Ferrous Sulfate 325 MG TAB PO SCH ×2 (08:52→17:30)
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
== END 2017-03-27 18:24 | DRG 885 ==
LOC: GERO 22:57
PROVIDERS: ADMIT Psychiatry & Neurology Psychiatry; ATTEND Psychiatry & Neurology Psychiatry
DX: F31.64 Bipolar disorder, current episode mixed, severe, with psychotic features (principal); E11.22 Type 2 diabetes mellitus with diabetic chronic kidney disease; E11.42 Type 2 diabetes mellitus with diabetic polyneuropathy; Z68.41 Body mass index [BMI] 40.0-44.9, adult; I48.91 Unspecified atrial fibrillation; E78.5 Hyperlipidemia, unspecified; E66.01 Morbid (severe) obesity due to excess calories; I20.9 Angina pectoris, unspecified; I12.9 Hypertensive chronic kidney disease with stage 1 through stage 4 chronic kidney disease, or unspecified chronic kidney disease; N18.2 Chronic kidney disease, stage 2 (mild); J45.909 Unspecified asthma, uncomplicated; Z79.82 Long term (current) use of aspirin; Z88.0 Allergy status to penicillin; Z79.4 Long term (current) use of insulin; Z91.19 Patient's noncompliance with other medical treatment and regimen
CPT/HCPCS: 36415-UA; 80048-TC; 82948-90; 90899; G0410; J1815; Z7610

== ENCOUNTER 2018-04-07 13:34 | Inpatient (IN) | payer MEDICARE ==
--- NOTE | 2018-04-07 13:50 | ED Physician Chart ---
ED Chief Complaint/HPI - Patient Information Date Seen:: 04/07/18 Time Seen:: 13:30 Chief Complaint:: Leg Pain History of Present Illness:: onset x 3 days of LE pain; pt denies trauma, H/As, neck pain, cough, C/P, SOB, Abd. Pain, A/N/V/D/C, fever, chills, or urinary s/s Allergies:: Allergies Allergy/AdvReac Type Severity Reaction Status Date / Time Penicillins Allergy Verified 03/19/17 13:43 Historian:: Patient, EMS Review:: Nurse's Note Reviewed, Old Chart Reviewed, EMS run form Reviewed ED Review of Systems - Review of Systems General/Constitutional: No fever, No chills, No weight loss, No weakness, No diaphoresis, No edema, No loss of appetite Skin: No skin lesions, No rash, No bruising Head: No headache, No light-headedness Eyes: No loss of vision, No pain, No diplopia ENT: No earache, No nasal drainage, No sore throat, No tinnitus Neck: No neck pain, No swelling, No thyromegaly, No stiffness, No mass noted Cardio Vascular: Chest pain, No chest pain, Palpitations, No PND, No orthopnea, No edema Pulmonary: No SOB, No cough, No sputum, No wheezing GI: No nausea, No vomiting, No diarrhea, No pain, No melena, No hematochezia, No constipation, No hematemesis G/U: No dysuria, No frequency, No hematuria, No nacturia Dietitian Teacher: No vaginal discharge, No abnormal vaginal bleed, No contraction Musculoskeletal: No bone or joint pain, No back pain, No muscle pain Endocrine: No polyuria, No polydipsia Psychiatric: Prior psych history, Depression, Anxiety, No suicidal ideation, No homicidal ideation, No auditory hallucination, No visual hallucination Hematopoietic: No bruising, No lymphadenopathy Allergic/Immuno: No urticaria, No angioedema Neurological: No syncope, No focal symptoms, No weakness, No paresthesia, No headache, No seizure, No dizziness, No confusion, No vertigo ED Past Medical History - Past Medical History Obtainable: Yes Past Medical History: HTN, DM, CAD, Dyslipidemia, ESRD Family History: Diabetes Melitus, HTN Social History: Non Smoker, No Alcohol, No Drug Use, Single, Care Facility Surgical History: None Psychiatricy History: Bipolar Medication: Reviewed Family Medical History - Family Member Mother History Unknown: Yes Hx Family Cancer: No Hx Family Coronary Artery Disease: No Hx Family Congestive Heart Failure: No Hx Family Hypertension: No Hx Family Stroke: No Hx Family Diabetes: No Hx Family Dementia: No Hx Family AIDS: No Hx Family COPD: No Hx Family Psychiatric Problems: No Hx Family Tuberculosis: No ED Physical Exam - Physical Examination General/Constitutional: Awake, Well-developed, well-nourished, Alert, No distress, GCS 15, Non-toxic appearing, Ambulatory Head: Atraumatic Eyes: Lids, conjuctiva normal, PERRL, EOMI Skin: Nl inspection, No rash, No skin lesions, No ecchymosis, Well hydrated, No lymphadenopathy ENMT: External ears, nose nl, TM canals nl, Nasal exam nl, Lips, teeth, gums nl , Oropharynx nl, Tonsils nl Neck: Nontender, Full ROM w/o pain, No JVD, No nuchal rigidity, No bruit, No mass, No stridor Respiratory: Nl effort/Exclusion, Clear to Auscultation, No Wheeze/Rhonchi/Rales Cardio Vascular: No murmur, gallop, rubs, NL S1 S2, Carotid/Femoral/Distal pulses equal bilaterally Other Cardio Vascular comments:: Irregular Irregular Rhythm GI: No tenderness/rebounding/guarding, No organomegaly, No hernia, Normal BS's, Nondistended, No mass/bruits, No McBurney tenderness : No CVA tenderness Extremities: No tenderness or effusion, Full ROM, normal strength in all extremities, No edema, Normal digits & nails Neuro/Psych: Alert/oriented, DTR's symmetric, Normal sensory exam, Normal motor strength, Judgement/insight normal, Mood normal, Normal gait, No focal deficits Misc: Normal back, No paraspinal tenderness ED Labs/Radiology/EKG Results - Lab Results Comments:: Reviewed - Radiology Results Comments:: U/S: no DVT - EKG Interpretations EKG Time:: 14:47 Rate & Rhythm: 57; Atrial Fibrillation Comments:: non-specific st-t changes ED Septic Shock - . Is Septic Shock (SBP<90, OR Lactate>4 mmol\L) present?: No ED Reassessment (Disposition) - Reassessment Reassessment Condition:: Improved - Diagnosis Diagnosis:: Leg Pain; DM; Hyperglycemia; Atrial Fibrillation; Uncontrolled DM - Aftercare/Follow up Instructions Aftercare/Follow-Up Instructions:: Counseled pt regarding lab results/diagnosis & need follow up, Counseled pt & family regarding lab results/diagnosis & need follow up - Patient Disposition Discharge/Transfer:: Acute Care w/in this hosp Accepting Physician:: Dr. Lewis Time Called:: 8900 Time Responded:: 15:40 Admitted to:: Telemetry Spoke to:: Dr. Lewis Admitting Medical Physician:: Dr. Lewis Condition at Disposition:: Stable, Improved
[2018-04-07 14:10] LABS: % EOSINOPHILS 1.8 % (0.0-5.0); % LYMPHOCYTES 21.8 % (20.0-50.0); % MONOCYTES 8.3 % (2.0-10.0); % NEUTROPHILS 68.1 % (40.0-80.0); EOSINOPHILE ABSOLUTE 0.1 Th/cmm (0.1-0.4); HEMATOCRIT 38.6 % (41.0-60); HEMOGLOBIN 12.8 gm/dL (12-16); LYMPHOCYTE ABSOLUTE 1.4 Th/cmm (1.5-3.0); MEAN CELL VOLUME 85.9 fl (81-100); MEAN CORPUSCULAR HEMOGLOBIN 28.4 pg (27.0-31.0); MEAN PLATELET VOLUME 6.4 fl; MONOCYTE ABSOLUTE 0.5 Th/cmm (0.3-1.0); NEUTROPHILE ABSOLUTE 4.2 Th/cmm (1.8-8.0); PLATELET COUNT 260 Th/cmm (150-400); RED CELL DISTRIBUTION WIDTH 14.6 % (11.5-20.0); WHITE BLOOD COUNT 6.2 Th/cmm (4.8-10.8)
[2018-04-07 14:24] LABS: INR 0.99 (0.5-1.4); PROTHROMBIN TIME (TEST) 10.3 SECONDS (9.5-11.5)
[2018-04-07 14:37] LABS: DDIMER QUANT < 100 ng/mL (100-400)
[2018-04-07 15:35] LABS: ALB/GLOB RATIO 1.2 (1.0-1.8); ALBUMIN 3.6 gm/dL (3.7-5.3); ALKALINE PHOSPHATASE 68 U/L (34-104); ANION GAP 13.1 (7.0-16.0); BILIRUBIN,TOTAL 0.5 mg/dL (0.3-1.0); BUN - UREA NITROGEN 15 mg/dL (7-25); CALCIUM SERUM 9.2 mg/dL (8.6-10.3); CARBON DIOXIDE 30.7 mEq/L (21.0-31.0); CHLORIDE 97 mEq/L (98-107); CHOLESTEROL 138 mg/dL (<200); CREATININE - SERUM 0.9 mg/dL (0.6-1.2); CREATININE KINASE 104 U/L (30-223); GFR AFRICAN-AMERICAN > 60.0 ml/min (>90); GFR NON AFRICAN-AMERICAN > 60.0 ml/min; GLUCOSE 189 mg/dL (70-105); HDL -HIGH DENSITY LIPOPROTEIN 31 mg/dL (23-92); POTASSIUM SERUM 3.8 mEq/L (3.5-5.1); SGOT 35 U/L (13-39); SGPT/ALT 23 U/L (7-52); SODIUM SERUM 137 mEq/L (136-145); TOTAL PROTEIN,SERUM 6.5 gm/dL (6.0-8.3); TRIGLYCERIDES 229 mg/dL (<150)
[2018-04-07] MEDS ORDERED: Sodium Chloride 0.45% 1,000 ML IV SCH (16:00)
[2018-04-07 17:52] VITALS: BP 124/86
[2018-04-07] MEDS: INSULIN ASPART SLIDING SCALE 100 UNITS/ML UNIT SUBQ SCH (20:52)
[2018-04-07] MEDS: Hydrocodone/APAP 10 mg/325 mg Tab PO PRN (21:58)
[2018-04-08 05:31] LABS: % BASOPHILS 1.3 % (0.0-2.0); % EOSINOPHILS 1.6 % (0.0-5.0); % LYMPHOCYTES 30.5 % (20.0-50.0); % MONOCYTES 9.6 % (2.0-10.0); BASOPHILE ABSOLUTE 0.1 Th/cumm (0-0.2); EOSINOPHILE ABSOLUTE 0.1 Th/cmm (0.1-0.4); HEMATOCRIT 33.8 % (41.0-60); HEMOGLOBIN 11.5 gm/dL (12-16); LYMPHOCYTE ABSOLUTE 1.7 Th/cmm (1.5-3.0); MEAN CELL VOLUME 85.3 fl (81-100); MEAN CORPUSCULAR HEMOGLOBIN 28.9 pg (27.0-31.0); MEAN CORPUSCULAR HGB CONC 33.9 pg (28.0-36.0); MEAN PLATELET VOLUME 6.2 fl; MONOCYTE ABSOLUTE 0.5 Th/cmm (0.3-1.0); NEUTROPHILE ABSOLUTE 3.3 Th/cmm (1.8-8.0); PLATELET COUNT 211 Th/cmm (150-400); RED BLOOD COUNT 3.96 Mil/cmm (3.80-5.20); RED CELL DISTRIBUTION WIDTH 14.6 % (11.5-20.0); WHITE BLOOD COUNT 5.7 Th/cmm (4.8-10.8)
[2018-04-08 05:45] LABS: ALB/GLOB RATIO 1.3 (1.0-1.8); ANION GAP 13.8 (7.0-16.0); BILIRUBIN,TOTAL 0.5 mg/dL (0.3-1.0); CALCIUM SERUM 8.3 mg/dL (8.6-10.3); CARBON DIOXIDE 29.3 mEq/L (21.0-31.0); CREATININE - SERUM 1.2 mg/dL (0.6-1.2); GFR AFRICAN-AMERICAN 57.8 ml/min (>90); GFR NON AFRICAN-AMERICAN 47.8 ml/min; POTASSIUM SERUM 3.1 mEq/L (3.5-5.1); TOTAL PROTEIN,SERUM 5.3 gm/dL (6.0-8.3)
[2018-04-08] MEDS: INSULIN ASPART SLIDING SCALE 100 UNITS/ML UNIT SUBQ SCH ×4 (07:36→21:05)
[2018-04-08] MEDS ORDERED: Maalox 30 mL Cup PO PRN (08:05)
[2018-04-08] MEDS: Hydrocodone/APAP 10 mg/325 mg Tab PO PRN ×4 (08:25→20:50)
--- NOTE | 2018-04-08 08:28 | Diagnostic Imaging Report ---
Bilateral lower extremity Doppler venous ultrasound exam HISTORY: Pain/swelling Sonographic sector images were obtained through the deep venous systems of both legs. Associated Doppler data was obtained. The exam demonstrates patency of the common femoral, superficial femoral, popliteal, and posterior tibial veins bilaterally. Specifically, no thrombus is seen. There are normal compressibility and augmentation responses. IMPRESSION: Negative exam for deep vein thrombophlebitis.
[2018-04-08] MEDS: Aspirin 81mg Chewable Tab PO SCH (08:30)
[2018-04-08] MEDS: Potassium Chloride 20 mEq ER Tab PO SCH (08:31)
--- NOTE | 2018-04-08 08:32 | Diagnostic Imaging Report ---
Portable chest x-ray HISTORY: Shortness of breath The heart is situated to the right side of the chest that may be related to patient rotation. Somewhat lobular right heart margin. If necessary, a CT scan would provide additional anatomic evaluation. No acute focal pulmonary parenchymal processes. IMPRESSION: 1. Suboptimal/Limited exam due to patient rotation. Heart is situated to the right probably related to rotation. A repeat nonrotated radiograph or CT scan would provide additional anatomic evaluation of needed. 2. No definite acute pulmonary processes
--- NOTE | 2018-04-08 10:31 | History & Physical ---
ADMIT DATE: 04/07/2018 HISTORY OF PRESENT ILLNESS: The patient is a very well known patient for me, a very elderly female patient, very obese, history of diabetes, uncontrolled, also has severe bilateral knee arthritis, came because of the left lower leg pain for the last 3 days complaining of severe problem with walking and very unsteady gait. REVIEW OF SYSTEMS: No fever, no chills, no rigors. PAST MEDICAL HISTORY: History of hypertension, diabetes, coronary artery disease, hyperlipidemia, and the patient also has a chronic renal failure. PHYSICAL EXAMINATION: GENERAL: The patient is awake, alert, very obese female patient. VITAL SIGNS: Noted. HEAD: Normal. ENT: Normal. LUNGS: Bilateral knee pain. CENTRAL NERVOUS SYSTEM: Grossly normal and the patient reviewed her labs and the patient has a very uncontrolled diabetes. The patient's EKG showed atrial fibrillation. DIAGNOSES: Leg pain, severe atrial fibrillation, pneumonia, chronic obstructive pulmonary disease exacerbation, ____ bilateral knee, severe arthritis was made. PLAN: The patient is being admitted. The patient will be given antibiotic and pain medication. See the reconciliation sheet and I will follow the patient and will have Neurology and Cardiology consult. I will follow the patient. JOB# [id number]
[2018-04-08] MEDS: POLYETHYLENE GLYCOL 3350 17 GM PACK PO SCH ×2 (13:44→16:18)
--- NOTE | 2018-04-08 23:05 | Consultation ---
DATE OF CONSULTATION: 04/08/[address] Lewis. HISTORY OF PRESENT ILLNESS: This 67-year-old obese female patient who has severe osteoarthritis of the knee. The patient came to the Emergency Room complaining of shortness of breath. PAST MEDICAL HISTORY: Hypertension, diabetes mellitus type 2, coronary artery disease, hyperlipidemia, bipolar, gout, sinus bradycardia, paroxysmal atrial fibrillation, and osteoporosis. FAMILY HISTORY: Unremarkable. SOCIAL HISTORY: No history of smoking or alcohol abuse. ALLERGIES: No known allergies. PHYSICAL EXAMINATION: VITAL SIGNS: Blood pressure 130/80, pulse 58, and respirations 28. HEAD: Normocephalic. No lumps or bumps. EYES: Pupils equal, reactive to light. Fundi show AV nicking, sclerae white, conjunctivae pink. NECK: Carotid 2+. Normal upstroke. JVD flat. Thyroid not palpable. Lymph nodes not palpable. CHEST: Shows increased AP diameter. No kyphosis, scoliosis. LUNGS: Bilateral bronchovesicular breath sounds. Occasional wheeze. HEART: PMI sixth intercostal space with lateral to midclavicular line. S1, S2, S3, S4, soft systolic murmur. ABDOMEN: Soft. Liver, spleen not palpable. No organomegaly. Bowel sounds active. NEUROLOGIC: Alert, awake. EXTREMITIES: Peripheral pulses 1+, pedal edema 1+. CLINICAL IMPRESSION: Paroxysmal atrial fibrillation converted to normal sinus rhythm, hypertension, diabetes mellitus type 2, stable angina, hyperlipidemia, osteoarthritis of the knees, and osteoporosis. PLAN: Admit the patient. We will get echocardiogram, BNP level. Monitor the patient closely. JOB# [id number]
[2018-04-09] MEDS: Hydrocodone/APAP 10 mg/325 mg Tab PO PRN ×5 (02:05→20:21)
[2018-04-09 05:51] LABS: % BASOPHILS 0.2 % (0.0-2.0); % EOSINOPHILS 2.3 % (0.0-5.0); % LYMPHOCYTES 27.5 % (20.0-50.0); % MONOCYTES 8.4 % (2.0-10.0); % NEUTROPHILS 61.6 % (40.0-80.0); EOSINOPHILE ABSOLUTE 0.1 Th/cmm (0.1-0.4); HEMATOCRIT 34.4 % (41.0-60); HEMOGLOBIN 11.6 gm/dL (12-16); LYMPHOCYTE ABSOLUTE 1.5 Th/cmm (1.5-3.0); MEAN CELL VOLUME 85.4 fl (81-100); MEAN CORPUSCULAR HEMOGLOBIN 28.9 pg (27.0-31.0); MEAN CORPUSCULAR HGB CONC 33.8 pg (28.0-36.0); MEAN PLATELET VOLUME 6.4 fl; MONOCYTE ABSOLUTE 0.5 Th/cmm (0.3-1.0); NEUTROPHILE ABSOLUTE 3.4 Th/cmm (1.8-8.0); PLATELET COUNT 228 Th/cmm (150-400); RED BLOOD COUNT 4.03 Mil/cmm (3.80-5.20); RED CELL DISTRIBUTION WIDTH 14.6 % (11.5-20.0); WHITE BLOOD COUNT 5.5 Th/cmm (4.8-10.8)
[2018-04-09 06:03] LABS: ANION GAP 11.3 (7.0-16.0); BUN - UREA NITROGEN 20 mg/dL (7-25); CARBON DIOXIDE 29.2 mEq/L (21.0-31.0); CHLORIDE 101 mEq/L (98-107); GFR AFRICAN-AMERICAN > 60.0 ml/min (>90); GLUCOSE 168 mg/dL (70-105); POTASSIUM SERUM 3.5 mEq/L (3.5-5.1); SODIUM SERUM 138 mEq/L (136-145)
[2018-04-09] MEDS: INSULIN ASPART SLIDING SCALE 100 UNITS/ML UNIT SUBQ SCH ×4 (06:42→20:22)
--- NOTE | 2018-04-09 08:12 | Diagnostic Imaging Report ---
CT Chest without IV contrast HISTORY: Pneumonia COMPARISON: Chest x-ray on 04/07/2018. Technique: Axial images were obtained from the base of the neck to the upper abdomen without IV contrast. Reconstructions were made. Total DLP 418, CTD I 12 Findings: Evaluation of the mediastinum is limited due to lack of IV contrast. Atherosclerosis is noted including diffuse coronary artery calcifications. Trace pericardial effusion is noted. No evidence of mediastinal lymphadenopathy. No evidence of any aortic aneurysm. A small hiatal hernia is noted. There is elevation of the right hemidiaphragm. Evaluation of the lung castrejon demonstrate hypoventilatory and atelectatic changes. Mild chronic lung changes are noted. Minimal right basal possible atelectasis is noted. No pleural effusions. Hepatomegaly is noted. Mild anasarca is noted along the upper abdomen. Degenerative changes of the spine are noted. There is a moderate age-indeterminate compression fracture of superior endplate of T12 with 4 to 5 mm retropulsion. IMPRESSION: Hypoventilatory and atelectatic with minimal passive atelectatic changes of the right lung base. Mild chronic lung changes. Atherosclerosis including diffuse coronary artery calcifications. Small hiatal hernia Hepatomegaly. Moderate compression fracture of the superior endplate of T12 with 4 to 5 mm retropulsion spinal canal narrowing. The fracture is age-indeterminate but may be subacute to chronic. If necessary follow-up MRI may be obtained for further assessment.
[2018-04-09] MEDS: Potassium Chloride 20 mEq ER Tab PO SCH (08:55)
[2018-04-09] MEDS: Aspirin 81mg Chewable Tab PO SCH (08:55)
[2018-04-09] MEDS: POLYETHYLENE GLYCOL 3350 17 GM PACK PO SCH (08:55)
--- NOTE | 2018-04-09 14:15 | Internal Medicine Prog Note ---
Internal Medicine Subjective - Subjective Patient seen and examined:: chart reviewed Patient is:: awake, in bed Patient Complaints of:: other (left lower ext pain ) Per staff patient has:: no adverse event, tolerating meds Internal Medicine Objective - Results Result Diagrams: 04/09/18 05:40 04/09/18 05:40 Recent Labs: Laboratory Last Values WBC 5.5 Th/cmm (4.8-10.8) 04/09/18 05:40 RBC 4.03 Mil/cmm (3.80-5.20) 04/09/18 05:40 Hgb 11.6 gm/dL (12-16) L 04/09/18 05:40 Hct 34.4 % (41.0-60) L 04/09/18 05:40 MCV 85.4 fl (81-100) 04/09/18 05:40 MCH 28.9 pg (27.0-31.0) 04/09/18 05:40 MCHC Differential 33.8 pg (28.0-36.0) 04/09/18 05:40 RDW 14.6 % (11.5-20.0) 04/09/18 05:40 Plt Count 228 Th/cmm (150-400) 04/09/18 05:40 MPV 6.4 fl 04/09/18 05:40 Neutrophils % 61.6 % (40.0-80.0) 04/09/18 05:40 Lymphocytes % 27.5 % (20.0-50.0) 04/09/18 05:40 Monocytes % 8.4 % (2.0-10.0) 04/09/18 05:40 Eosinophils % 2.3 % (0.0-5.0) 04/09/18 05:40 Basophils % 0.2 % (0.0-2.0) 04/09/18 05:40 PT 10.3 SECONDS (9.5-11.5) 04/07/18 14:00 INR 0.99 (0.5-1.4) 04/07/18 14:00 D-Dimer < 100 ng/mL (100-400) L 04/07/18 14:00 Sodium 138 mEq/L (136-145) 04/09/18 05:40 Potassium 3.5 mEq/L (3.5-5.1) 04/09/18 05:40 Chloride 101 mEq/L (98-107) 04/09/18 05:40 Carbon Dioxide 29.2 mEq/L (21.0-31.0) 04/09/18 05:40 Anion Gap 11.3 (7.0-16.0) 04/09/18 05:40 BUN 20 mg/dL (7-25) 04/09/18 05:40 Creatinine 1.0 mg/dL (0.6-1.2) 04/09/18 05:40 Est GFR ( Amer) > 60.0 ml/min (>90) 04/09/18 05:40 Est GFR (Non-Af Amer) 59.0 ml/min 04/09/18 05:40 BUN/Creatinine Ratio 20.0 04/09/18 05:40 Glucose 168 mg/dL (70-105) H 04/09/18 05:40 POC Glucose 179 MG/DL (70 - 105) H 04/09/18 12:23 Calcium 8.0 mg/dL (8.6-10.3) L 04/09/18 05:40 Total Bilirubin 0.5 mg/dL (0.3-1.0) 04/08/18 04:45 AST 24 U/L (13-39) 04/08/18 04:45 ALT 18 U/L (7-52) 04/08/18 04:45 Alkaline Phosphatase 54 U/L (34-104) 04/08/18 04:45 Creatine Kinase 104 U/L (30-223) 04/07/18 14:00 Troponin I 0.03 ng/mL (0.01-0.05) 04/07/18 14:00 B-Natriuretic Peptide 50.0 pg/mL (5.0-100.0) 04/07/18 14:00 Total Protein 5.3 gm/dL (6.0-8.3) L 04/08/18 04:45 Albumin 3.0 gm/dL (3.7-5.3) L 04/08/18 04:45 Globulin 2.3 gm/dL 04/08/18 04:45 Albumin/Globulin Ratio 1.3 (1.0-1.8) 04/08/18 04:45 Triglycerides 207 mg/dL (<150) H 04/08/18 04:45 Cholesterol 119 mg/dL (<200) 04/08/18 04:45 LDL Cholesterol Direct 66 mg/dL (75-193) L 04/08/18 04:45 HDL Cholesterol 24 mg/dL (23-92) 04/08/18 04:45 TSH 7.40 uIU/ml (0.34-5.60) H 04/08/18 04:45 - Physical Exam Vitals and I&O: Vital Signs Temp 97.7 F 04/09/18 12:00 Pulse 65 04/09/18 12:00 Resp 17 04/09/18 12:00 BP 125/85 04/09/18 12:00 Pulse Ox 98 04/09/18 12:00 Intake & Output 04/08/18 04/09/18 04/09/18 18:59 06:59 18:59 Intake Total 500 800 Balance 500 800 Weight (lbs) 136.531 kg 137.484 kg Intake: Oral 500 800 Other: # Voids 2 # Bowel Movements 1 Weight Source Standing scale Bedscale Active Medications: Current Medications Acetaminophen (Tylenol) 650 mg PO Q4HR PRN PRN Reason: Mild Pain / Temp above 100 Stop: 06/07/18 08:04 Acetaminophen/Hydrocodone Bitart ([place] 10 Mg/325 Mg) 1 tab PO Q4H PRN PRN Reason: Pain (Moderate) Stop: 06/06/18 17:35 Last Admin: 04/09/18 12:24 Dose: 1 tab Al Hydrox/Mg Hydrox/Simethicone (Maalox) 30 ml PO Q4HR PRN PRN Reason: GI DISTRESS Stop: 06/07/18 08:04 Amlodipine Besylate (Norvasc) 10 mg PO DAILY [facility] Stop: 06/07/18 08:59 Last Admin: 04/09/18 08:56 Dose: 10 mg Aspirin (Aspirin Chewable) 81 mg PO DAILY [facility] Stop: 06/07/18 08:59 Last Admin: 04/09/18 08:55 Dose: 81 mg Bacitracin (Baciquent) 1 appl TP DAILY [facility] Stop: 06/07/18 08:59 Last Admin: 04/09/18 08:56 Dose: 1 appl Diphenhydramine HCl (Benadryl) 25 mg PO Q6HR PRN PRN Reason: Itching Stop: 06/07/18 08:04 Divalproex Sodium (Depakote Dr) 500 mg PO HS JASEN; Protocol Stop: 06/07/18 20:59 Last Admin: 04/08/18 20:50 Dose: 500 mg Furosemide (Lasix) 20 mg IVP DAILY JASEN Stop: 06/07/18 08:59 Last Admin: 04/09/18 08:56 Dose: Not Given Sodium Chloride (Nacl 0.45%) 1,000 mls @ 50 mls/hr IV .Q20H JASEN Stop: 06/06/18 15:59 Last Admin: 04/07/18 22:02 Dose: 50 mls/hr Insulin Aspart (Novolog Insulin Sliding Scale) 0 units SUBQ ACHS JASEN; Protocol Stop: 06/06/18 20:59 Last Admin: 04/09/18 12:28 Dose: 2 units Lorazepam (Ativan) 0.5 mg PO Q4HR PRN; Protocol PRN Reason: Agitation Stop: 06/06/18 17:42 Last Admin: 04/07/18 23:26 Dose: 0.5 mg Polyethylene Glycol (Miralax) 17 gm PO DAILY JASEN Stop: 06/07/18 12:59 Last Admin: 04/09/18 08:55 Dose: 17 gm Potassium Chloride (Klor-Con) 40 meq PO DAILY JASEN Stop: 06/07/18 08:59 Last Admin: 04/09/18 08:55 Dose: 40 meq Quetiapine Fumarate (Seroquel) 25 mg PO HS JASEN; Protocol Stop: 06/07/18 08:59 Last Admin: 04/08/18 23:02 Dose: 25 mg Zolpidem Tartrate (Ambien) 5 mg PO HS PRN PRN Reason: Insomnia Stop: 06/06/18 17:36 Last Admin: 04/08/18 01:56 Dose: 5 mg General: weak HEENT: NC/AT Neck: Supple Lungs: CTAB Cardiovascular: Normal S1, Normal S2 Abdomen: soft, non-tender Neurological: muscle weakness, other (gain unstable ) Internal Medicine Assmt/Plan - Assessment Assessment: leg pain severe atril fib pneumonia copd severe arthritis - Plan Plan: as per order sheet Nutritional Asmnt/Malnutr-PDOC - Dietary Evaluation Malnutrition Findings (Please click <Entered> for more info): Nutritional Asmnt/Malnutrition Start: 04/08/18 15: 55 Text: Status: Complete Freq: Protocol: Document 04/08/18 15:55 DOMINIQUE (Rec: 04/08/18 16:00 DOMINIQUE [email or web address]) Nutritional Asmnt/Malnutrition Patient General Information Nutritional Screening High Risk Consult Diagnosis Uncontrolled DM & R/O PNA Pertinent Medical Hx/Surgical Hx HTN, DM, CAD, hyperlipidemia, chronic renal failure, dyslipidemia, bipolar Subjective Information Received nutrition consult for DM. Pt c/o vomiting and constipation. Pt provided food preferences and states she recently lost 20# in order to control diabetis. Pt appeared to have increasing impatience and agitation towards the end of the consult; unable to provide nutrition education on DM. Per EMR, pt finished 100% dinner last night. Current Diet Order/ Nutrition Support CCHO 60 gm, Cardiac Pertinent Medications maalox, lasix, novolog, miralax, klor-con, seroquel, Nacl 0.45% Pertinent Labs 04/08: K 3.1, Cl 98, glucose 153, POC 160-247, Ca 8.3, Alb 3.0, triglycerides 207 04/07: K 3.8, Cl 97, glucose 189, POc 207, Ca 9.2, Alb 3.6, triglycerides 229 Nutritional Hx/Data Height 1.7 m Height (Calculated Centimeters) 170.2 Current Weight (lbs) 136.531 kg Weight (Calculated Kilograms) 136.5 Weight (Calculated Grams) 410656.3 [place] Body Weight 135 lb Body Mass Index (BMI) 47.1 Recent Weight Change Yes Weight Status Morbidly Obese GI Symptoms GI Symptoms Vomitting Constipation Last BM none noted Difficult in: None Food Allergies No Skin Integrity/Comment: rash to right arm and left groin, mitul 15 Current %PO Good (75-100%) Estimated Nutritional Goals BEE in Kcals: Adj wt of IBW Calories/Kcals/Kg 22-26 (based on adj wt 80 kg) Kcals Calculated 5323-1237 Protein: Adj wt of IBW Protein g/k.8-1 Protein Calculated 64-80 g Fluid: ml 0605-2689 (1 ml/kcal) Nutritional Problem 1. Problem Problem Altered nutrition related lab values Etiology hyperglycemia, endocrine dysfunction, electrolye imbalance Signs/Symptoms: K 3.1, glucose 153, POC 160, Ca 8.3 Malnutrition Alert Is there a minimum of two criteria No selected? Query Text:Check all the applicable criteria. A minimum of two criteria are recommended for diagnosis of either severe or non-severe malnutrition. Malnutrition Related to Morbid Obesity Malnutrition related to morbid obesity No Intervention/Recommendation Comments 1. Continue with CCHO 60 gm, cardiac diet as ordered. Diet preference updated. 2. MD to replace electrolytes as needed 3. Monitor PO intake, wt, labs and skin integrity 4. F/U as moderate risk in 3-5 days, 04/11-04/13 Expected Outcomes/Goals Expected Outcomes/Goals 1. PO intake to meet at least 75% of all meals 2. Wt stability, skin integrity to improve, labs to approach normal limits Reviewed by Kristi Zurita RD
[2018-04-09] MEDS ORDERED: Potassium Chloride 20 mEq ER Tab PO ONE (14:53)
--- NOTE | 2018-04-09 16:58 | Cardiology ---
04/08/2018 PROCEDURE: Echocardiogram. The patient of Dr. Lewis. M-MODE ECHOCARDIOGRAM: Mitral valve, anterior leaflet of mitral valve shows normal excursion, EF velocity. Posterior leaflet of mitral valve shows normal excursion. Left ventricular posterior wall shows increased thickness, normal excursion. Interventricular septum shows increased thickness, normal excursion, hypertrophy of the left ventricle, ejection fraction 73%. Left atrium enlarged 4.4 cm. Aortic root shows normal dimension, normal excursion of aortic leaflets. CONCLUSION: Hypertrophy of the left ventricle, left atrial enlargement, ejection fraction 73%. 2D ECHO: Long axis view showed normal sized left ventricle with hypertrophy of the left ventricle. Left atrium enlarged. Aortic root shows normal dimension, normal excursion of aortic leaflets. Short axis view of mitral valve normal. Short axis view of aortic valve normal. Apical four chamber view showed normal sized left ventricle with hypertrophy of the left ventricle. Left atrium enlarged. Right ventricular cavity, right atrium normal, no pericardial effusion. CONCLUSION: Hypertrophy of the left ventricle. Left atrial enlargement, ejection fraction 73%. Doppler study shows mild mitral regurgitation, trace tricuspid regurgitation, right ventricular systolic pressure 24 mmHg. JOB# [id number]
[2018-04-10] MEDS: Hydrocodone/APAP 10 mg/325 mg Tab PO PRN ×2 (00:32→08:55)
--- NOTE | 2018-04-10 04:35 | Consultation ---
DATE OF CONSULTATION: 04/09/2018 INFECTIOUS DISEASE CONSULTATION REFERRING PHYSICIAN: Dr. Lewis. REASON FOR CONSULTATION: Urinary tract infection. HISTORY OF PRESENT ILLNESS: The patient is a 67-year-old female with past medical history of hypertension, diabetes mellitus type 2, coronary artery disease, hyperlipidemia, and chronic renal failure, presented to the ER for left lower leg swelling for the last 3 days. The patient also has some problems with walking. On initial evaluation, the patient's temperature was 98.1 degrees Fahrenheit and WBC count was 6200. On further evaluation, the patient was found to have pneumonia. The patient has refused any IV antibiotics, so ID consult was called for further antibiotic management. PAST MEDICAL HISTORY: Includes hypertension, diabetes mellitus type 2, history of coronary artery disease, hyperlipidemia, and chronic renal failure. SOCIAL HISTORY: The patient lives at a care facility. No history of smoking, alcohol or drug use. The patient is single. FAMILY HISTORY: Diabetes mellitus and hypertension. PSYCHIATRIC HISTORY: The patient has history of bipolar disorder. MEDICATIONS: As per medication reconciliation sheet. REVIEW OF SYSTEMS: GENERAL: The patient denies any fever or chills. The patient denies any weight loss or any generalized weakness. HEENT: The patient denies any diplopia, photophobia, sore throat or congestion. RESPIRATORY: The patient denies any cough or shortness of breath. CARDIOVASCULAR: No chest pain or palpitation. GASTROINTESTINAL: No nausea, no vomiting, no diarrhea, no constipation. GENITOURINARY: No dysuria. NEUROLOGIC: No headache, no dizziness, no focal weakness. PHYSICAL EXAMINATION: GENERAL: The patient is obese, not in any acute distress. VITAL SIGNS: Shows temperature is 97, pulse 65, respirations 18, blood pressure 130/50, O2 100%. HEENT: Head is normocephalic, atraumatic. Oral cavity moist, pink tongue. Eyes with no pallor and no icterus. PERRLA, EOMI. NECK: Supple. No JVD, no bruit. Trachea is midline. CHEST: Bilateral breath sounds. No crackles or wheezing. HEART: S1 and S2 within normal limits. Regular rhythm. No murmur, no gallop. ABDOMEN: Soft, nontender, nondistended. Bowel sounds present. EXTREMITIES: No cyanosis, no clubbing, no edema. NEUROLOGIC: Alert, awake, and oriented x 3. No focal deficits. LABORATORY DATA: Current lab shows WBC count is 5500, hemoglobin 11.6, hematocrit 34.4, platelets are 228,000, neutrophils 61.6%. Sodium 138, potassium 3.5, chloride 101, bicarbonate is 29.2, BUN is 20, creatinine is 1, glucose is 168. MRSA screen is negative. CT scan of the chest shows hypoventilatory changes and atelectasis with minimal passive atelectasis changes in the right lung base, mild chronic lung changes, atherosclerosis, small hiatal hernia, hepatomegaly, moderate compression fracture of superior endplate of T12 with 4-5 mm retropulsion. The fracture is determined, but subacute to chronic. Ultrasound of the lower extremity shows no evidence of DVT. IMPRESSION: 1. ____. 2. Chronic obstructive pulmonary disease. 3. Hypertension. 4. Diabetes mellitus type 2. 5. Coronary artery disease. 6. Hyperlipidemia. 7. Atrial fibrillation. 8. Degenerative joint disease. 9. Chronic obstructive pulmonary disease. 10. Compression fracture of T12 endplate. RECOMMENDATIONS: Recommend to start Levaquin and may get MRI of the lumbosacral spine. The patient may get thoracic spine MRI for further evaluation of T12 fracture. Multiple consultation is called. We would like to thank you, Dr. Lewis, for involving me in taking care of this patient. JOB# [id number]
[2018-04-10 06:46] LABS: ANION GAP 11.6 (7.0-16.0); BUN - UREA NITROGEN 13 mg/dL (7-25); CHLORIDE 105 mEq/L (98-107); CREATININE - SERUM 0.8 mg/dL (0.6-1.2); GFR AFRICAN-AMERICAN > 60.0 ml/min (>90); GFR NON AFRICAN-AMERICAN > 60.0 ml/min; GLUCOSE 170 mg/dL (70-105); POTASSIUM SERUM 3.6 mEq/L (3.5-5.1); SODIUM SERUM 140 mEq/L (136-145)
[2018-04-10] MEDS: INSULIN ASPART SLIDING SCALE 100 UNITS/ML UNIT SUBQ SCH (08:02)
[2018-04-10] MEDS: POLYETHYLENE GLYCOL 3350 17 GM PACK PO SCH (08:55)
[2018-04-10] MEDS: Potassium Chloride 20 mEq ER Tab PO SCH (08:55)
[2018-04-10] MEDS: Aspirin 81mg Chewable Tab PO SCH (08:56)
--- NOTE | 2018-04-10 17:32 | Progress Notes ---
DATE: 04/10/2018 SUBJECTIVE: The patient was seen in her room. The patient is awake, alert, oriented. Denies any pain or discomfort at this time, but has some episodes of leg pain last night, but tolerable per patient. Otherwise, the patient is currently in no acute distress. OBJECTIVE: VITAL SIGNS: Temperature 97.4, heart rate 64, blood pressure 134/59, respirations of 18, and 95% oxygen saturation. HEENT: Head is atraumatic and normocephalic. Eyes: Bilateral conjunctivae are clear. Bilateral pupils are equally round and reactive. NECK: Supple. No JVD. CARDIOVASCULAR: S1 and S2, without murmur regularly. PULMONARY: Decreased breath sounds. GASTROINTESTINAL: Soft and nontender without guarding. Positive bowel sounds. MUSCULOSKELETAL: No clubbing. No cyanosis noted. ASSESSMENT: 1. Chronic obstructive pulmonary disease exacerbation. 2. Pneumonia. 3. Osteoarthritis. 4. Atrial fibrillation. 5. Chronic leg pain. PLAN: We will continue current treatment. We will continue to provide pain management as needed. Treatment plans were discussed with the patient's nurse. Treatment plans were discussed with Dr. Lewis. JOB# [id number]
--- NOTE | 2018-04-11 02:16 | Progress Notes ---
DATE: 04/10/[address] Heart. SUBJECTIVE: The patient is a 67-year-old obese female patient with hypertension, diabetes, coronary artery disease, complaining of knee pain. The patient apparently stable at this time. The patient is feeling better. OBJECTIVE: VITAL SIGNS: Blood pressure 130/80, pulse 70, respirations 20, temperature 98. LUNGS: Clear. HEART: Regular rhythm, S1, S2, soft S3, S4. ABDOMEN: Soft. EXTREMITIES: Minimal pedal edema. ASSESSMENT: Acute exacerbation of chronic obstructive pulmonary disease, stable, hypertension, diabetes mellitus type 2, coronary artery disease, hyperlipidemia, paroxysmal atrial fibrillation. Compression fracture at T12 endplate. PLAN: The patient to continue present management and patient will be transferred to [facility]. JOB# [id number]
== END 2018-04-10 11:30 | DRG 291 ==
LOC: ER 13:34 → MSI 16:08
PROVIDERS: ADMIT Internal Medicine; ATTEND Internal Medicine
DX: I13.0 Hypertensive heart and chronic kidney disease with heart failure and stage 1 through stage 4 chronic kidney disease, or unspecified chronic kidney disease (principal); J18.9 Pneumonia, unspecified organism; I50.31 Acute diastolic (congestive) heart failure; J44.0 Chronic obstructive pulmonary disease with (acute) lower respiratory infection; M48.54XA Collapsed vertebra, not elsewhere classified, thoracic region, initial encounter for fracture; J44.1 Chronic obstructive pulmonary disease with (acute) exacerbation; E78.5 Hyperlipidemia, unspecified; N18.9 Chronic kidney disease, unspecified; E11.65 Type 2 diabetes mellitus with hyperglycemia; E66.9 Obesity, unspecified; M17.0 Bilateral primary osteoarthritis of knee; F31.9 Bipolar disorder, unspecified; M10.9 Gout, unspecified; I48.0 Paroxysmal atrial fibrillation; I25.119 Atherosclerotic heart disease of native coronary artery with unspecified angina pectoris; M81.0 Age-related osteoporosis without current pathological fracture; G89.29 Other chronic pain; N32.81 Overactive bladder; Z83.3 Family history of diabetes mellitus; Z82.49 Family history of ischemic heart disease and other diseases of the circulatory system
CPT/HCPCS: 36415-UA; 71045-TC; 71250-TC; 80048-TC; 80053-TC; 80061-TC; 82550-TC; 82948-90; 83036-90; 83880-TC; 84443-TC; 84484-TC; 85025-TC; 85379-TC; 85610-TC; 93005; 93970-TC-50; 94760; 96374; J1815; J1885; J1940; J2060; Z7610

== ENCOUNTER 2018-06-24 16:18 | Inpatient (IN) | payer MEDICARE, BC ==
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
[2018-06-24 17:11] LABS: % BASOPHILS 0.4 % (0.0-2.0); % EOSINOPHILS 1.1 % (0.0-5.0); % LYMPHOCYTES 18.5 % (20.0-50.0); % MONOCYTES 6.4 % (2.0-10.0); % NEUTROPHILS 73.6 % (40.0-80.0); EOSINOPHILE ABSOLUTE 0.1 Th/cmm (0.1-0.4); HEMATOCRIT 37.3 % (41.0-60); HEMOGLOBIN 12.5 gm/dL (12-16); LYMPHOCYTE ABSOLUTE 1.3 Th/cmm (1.5-3.0); MEAN CELL VOLUME 83.2 fl (81-100); MEAN CORPUSCULAR HEMOGLOBIN 27.8 pg (27.0-31.0); MEAN CORPUSCULAR HGB CONC 33.4 pg (28.0-36.0); MEAN PLATELET VOLUME 6.3 fl; MONOCYTE ABSOLUTE 0.5 Th/cmm (0.3-1.0); NEUTROPHILE ABSOLUTE 5.2 Th/cmm (1.8-8.0); PLATELET COUNT 266 Th/cmm (150-400); RED BLOOD COUNT 4.48 Mil/cmm (3.80-5.20); RED CELL DISTRIBUTION WIDTH 13.6 % (11.5-20.0); WHITE BLOOD COUNT 7.1 Th/cmm (4.8-10.8)
[2018-06-24 17:25] LABS: ALB/GLOB RATIO 1.4 (1.0-1.8); ALBUMIN 3.4 gm/dL (3.7-5.3); ALKALINE PHOSPHATASE 80 U/L (34-104); ANION GAP 14.9 (7.0-16.0); BILIRUBIN,TOTAL 0.3 mg/dL (0.3-1.0); BUN - UREA NITROGEN 15 mg/dL (7-25); CALCIUM SERUM 8.9 mg/dL (8.6-10.3); CARBON DIOXIDE 21.4 mEq/L (21.0-31.0); CHLORIDE 102 mEq/L (98-107); CHOLESTEROL 159 mg/dL (<200); GFR AFRICAN-AMERICAN > 60.0 ml/min (>90); HDL -HIGH DENSITY LIPOPROTEIN 29 mg/dL (23-92); POTASSIUM SERUM 4.3 mEq/L (3.5-5.1); SGOT 16 U/L (13-39); SGPT/ALT 15 U/L (7-52); SODIUM SERUM 134 mEq/L (136-145); TOTAL PROTEIN,SERUM 5.8 gm/dL (6.0-8.3); TRIGLYCERIDES 397 mg/dL (<150)
[2018-06-24] MEDS ORDERED: INSULIN HUMAN REGULAR 100 UNITS/ML UNIT SUBQ ONE (17:54)
[2018-06-24 17:58] LABS: URINE SOURCE CATH
[2018-06-24] MEDS ORDERED: INSULIN HUMAN REGULAR 100 UNITS/ML UNIT ONE (17:59)
[2018-06-24 18:00] LABS: URINE BILIRUBIN NEGATIVE (NEGATIVE); URINE BLOOD SMALL (NEGATIVE); URINE GLUCOSE (UA) >=1000 mg/dL (NEGATIVE); URINE KETONE NEGATIVE (NEGATIVE); URINE LEUKOCYTE ESTERASE SMALL (NEGATIVE); URINE MICROSCOPIC INDICATED? YES; URINE NITRATE POSITIVE (NEGATIVE); URINE PROTEIN NEGATIVE (NEGATIVE); URINE UROBILINOGEN 0.2 E.U./dL (0.2 - 1.0)
[2018-06-24 18:07] LABS: URINE CLARITY CLOUDY (CLEAR); URINE COLOR YELLOW
[2018-06-24 18:08] LABS: URINE WBC 50-100 /hpf (0-5)
[2018-06-24 18:09] LABS: URINE BACTERIA FEW /hpf (NONE SEEN); URINE EPITHELIAL CELLS FEW /lpf (FEW)
[2018-06-24] MEDS ORDERED: Hydrocodone/APAP 5mg/325mg Tab PO ONE (18:35)
[2018-06-24] MEDS ORDERED: Hydrocodone/APAP 5mg/325mg Tab ONE (18:39)
[2018-06-24 20:36] VITALS: BP 143/75
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
[2018-06-24] MEDS: Hydrocodone/APAP 5mg/325mg Tab PO PRN (21:32)
[2018-06-24] MEDS: INSULIN ASPART SLIDING SCALE 100 UNITS/ML UNIT SUBQ SCH (22:16)
[2018-06-25] MEDS: Hydrocodone/APAP 5mg/325mg Tab PO PRN ×4 (05:56→21:19)
[2018-06-25] MEDS: POLYETHYLENE GLYCOL 3350 17 GM PACK PO PRN (06:38)
[2018-06-25] MEDS: INSULIN ASPART SLIDING SCALE 100 UNITS/ML UNIT SUBQ SCH ×4 (06:52→20:49)
[2018-06-25] MEDS ORDERED: INSULIN ASPART SLIDING SCALE 100 UNITS/ML UNIT SUBQ SCH ×2 (07:30)
--- NOTE | 2018-06-25 07:53 | Diagnostic Imaging Report ---
CHEST X-RAY: AP view INDICATION: pain COMPARISON: Chest CT on 04/08/2018 and chest x-ray on 04/07/2018 FINDINGS: The patient is rotated. Increased left basal interstitial lung markings are noted. No focal consolidation or effusions. Cardiomegaly is noted. Degenerative changes of the spine and AC joints are noted. IMPRESSION: Limited exam due to rotation. Increased left basal lung markings probably due to atelectasis. Faint infiltrate is less likely. No focal consolidation identified Cardiomegaly. Note the heart is situated to the right probably related to rotation.
[2018-06-25] MEDS: Aspirin 81mg Chewable Tab PO SCH (08:35)
[2018-06-25] MEDS: Multivitamin w/ Minerals Tab PO SCH (08:35)
[2018-06-25] MEDS: NYSTATIN 100000 UNITS/GM POWD TP SCH (08:36)
[2018-06-25] MEDS ORDERED: Non-Formulary Item 1 EA (Cranberry Conc/C/Bacill Coag [Cranberry Tablet] 1 EACH) PO SCH (09:00)
[2018-06-25] MEDS ORDERED: Non-Formulary Item 1 EA (Sitagliptin Phosphate [Januvia] 100 MG) PO SCH (09:00)
[2018-06-25] MEDS ORDERED: Non-Formulary Item 1 EA (Apixaban [Eliquis] 5 MG) PO SCH (09:00)
[2018-06-25] MEDS ORDERED: AZITHROMYCIN PO SCH (09:00)
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
[2018-06-25] MEDS: Codeine/Promethazine Susp 5 mL UDC PO SCH (23:00)
[2018-06-26] MEDS: INSULIN ASPART SLIDING SCALE 100 UNITS/ML UNIT SUBQ SCH ×4 (06:51→21:29)
[2018-06-26] MEDS: Hydrocodone/APAP 5mg/325mg Tab PO PRN (06:59)
[2018-06-26] MEDS: Aspirin 81mg Chewable Tab PO SCH (08:24)
[2018-06-26] MEDS: Multivitamin w/ Minerals Tab PO SCH (08:25)
[2018-06-26] MEDS: NYSTATIN 100000 UNITS/GM POWD TP SCH (08:27)
[2018-06-26] MEDS: Codeine/Promethazine Susp 5 mL UDC PO SCH ×3 (08:43→21:30)
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
--- NOTE | 2018-06-26 19:04 | Progress Notes ---
DATE: 06/26/2018 SUBJECTIVE: The patient was seen in her room. The patient appears to be calm, relaxed, but appears to be also manipulative and demanding. Otherwise, the patient is in no acute distress. OBJECTIVE: VITAL SIGNS: Temperature 97.6, heart rate 65, blood pressure 138/74, respiration 19 and 94% on room air. HEENT: Head is atraumatic and normocephalic. Eyes: Bilateral conjunctivae are clear. Bilateral pupils equally round and reactive. NECK: Supple. No JVD. CARDIOVASCULAR: S1 and S2 without murmur. PULMONARY: Clear to auscultation. GASTROINTESTINAL: Soft and nontender without guarding. Positive bowel sounds. MUSCULOSKELETAL: No clubbing. No cyanosis noted. ASSESSMENT: 1. Depression. 2. Diabetes. 3. Gastroesophageal reflux disease. 4. History of atrial fibrillation. PLAN: We will keep the patient inpatient to Psychiatric Unit. We will follow up with a psychiatrist to monitor the patient's condition. Treatments plans were discussed with the patient's nurse. Treatment plans were discussed with Dr. Lewis. JOB# [id number]
[2018-06-27] MEDS: INSULIN ASPART SLIDING SCALE 100 UNITS/ML UNIT SUBQ SCH ×4 (06:34→20:53)
[2018-06-27] MEDS: Hydrocodone/APAP 5mg/325mg Tab PO PRN ×2 (06:39→13:56)
[2018-06-27] MEDS: Aspirin 81mg Chewable Tab PO SCH (09:18)
[2018-06-27] MEDS: Codeine/Promethazine Susp 5 mL UDC PO SCH ×3 (09:19→20:53)
[2018-06-27] MEDS: NYSTATIN 100000 UNITS/GM POWD TP SCH (09:20)
[2018-06-27] MEDS: Multivitamin w/ Minerals Tab PO SCH (09:20)
--- NOTE | 2018-06-27 13:14 | Internal Medicine Prog Note ---
Internal Medicine Subjective - Subjective Patient seen and examined:: chart reviewed Patient is:: awake, agitated (admitted for aggresive behaviour, 5150 hold), confused, other (inpredictable) Internal Medicine Objective - Results Result Diagrams: 06/24/18 17:03 06/24/18 17:03 Recent Labs: Laboratory Last Values WBC 7.1 Th/cmm (4.8-10.8) 06/24/18 17:03 RBC 4.48 Mil/cmm (3.80-5.20) 06/24/18 17:03 Hgb 12.5 gm/dL (12-16) 06/24/18 17:03 Hct 37.3 % (41.0-60) L 06/24/18 17:03 MCV 83.2 fl (81-100) 06/24/18 17:03 MCH 27.8 pg (27.0-31.0) 06/24/18 17:03 MCHC Differential 33.4 pg (28.0-36.0) 06/24/18 17:03 RDW 13.6 % (11.5-20.0) 06/24/18 17:03 Plt Count 266 Th/cmm (150-400) 06/24/18 17:03 MPV 6.3 fl 06/24/18 17:03 Neutrophils % 73.6 % (40.0-80.0) 06/24/18 17:03 Lymphocytes % 18.5 % (20.0-50.0) L 06/24/18 17:03 Monocytes % 6.4 % (2.0-10.0) 06/24/18 17:03 Eosinophils % 1.1 % (0.0-5.0) 06/24/18 17:03 Basophils % 0.4 % (0.0-2.0) 06/24/18 17:03 Sodium 134 mEq/L (136-145) L 06/24/18 17:03 Potassium 4.3 mEq/L (3.5-5.1) 06/24/18 17:03 Chloride 102 mEq/L (98-107) 06/24/18 17:03 Carbon Dioxide 21.4 mEq/L (21.0-31.0) 06/24/18 17:03 Anion Gap 14.9 (7.0-16.0) 06/24/18 17:03 BUN 15 mg/dL (7-25) 06/24/18 17:03 Creatinine 1.0 mg/dL (0.6-1.2) 06/24/18 17:03 Est GFR ( Amer) > 60.0 ml/min (>90) 06/24/18 17:03 Est GFR (Non-Af Amer) 59.0 ml/min 06/24/18 17:03 BUN/Creatinine Ratio 15.0 06/24/18 17:03 Glucose mg/dL (70-105) 06/24/18 17:03 POC Glucose 269 MG/DL (70 - 105) H 06/26/18 20:40 Calcium 8.9 mg/dL (8.6-10.3) 06/24/18 17:03 Total Bilirubin 0.3 mg/dL (0.3-1.0) 06/24/18 17:03 AST 16 U/L (13-39) 06/24/18 17:03 ALT 15 U/L (7-52) 06/24/18 17:03 Alkaline Phosphatase 80 U/L (34-104) 06/24/18 17:03 Total Protein 5.8 gm/dL (6.0-8.3) L 06/24/18 17:03 Albumin 3.4 gm/dL (3.7-5.3) L 06/24/18 17:03 Globulin 2.4 gm/dL 06/24/18 17:03 Albumin/Globulin Ratio 1.4 (1.0-1.8) 06/24/18 17:03 Triglycerides 397 mg/dL (<150) H 06/24/18 17:03 Cholesterol 159 mg/dL (<200) 06/24/18 17:03 LDL Cholesterol Direct 91 mg/dL (75-193) 06/24/18 17:03 HDL Cholesterol 29 mg/dL (23-92) 06/24/18 17:03 TSH 3.17 uIU/ml (0.34-5.60) 06/24/18 17:03 Urine Source CATH 06/24/18 16:30 Urine Color YELLOW 06/24/18 16:30 Urine Clarity CLOUDY (CLEAR) H 06/24/18 16:30 Urine pH 6.0 (4.6 - 8.0) 06/24/18 16:30 Ur Specific [place] 1.015 (1.005-1.030) 06/24/18 16:30 Urine Protein NEGATIVE mg/dL (NEGATIVE) 06/24/18 16:30 Urine Glucose (UA) >=1000 mg/dL (NEGATIVE) H 06/24/18 16:30 Urine Ketones NEGATIVE mg/dL (NEGATIVE) 06/24/18 16:30 Urine Blood SMALL (NEGATIVE) H 06/24/18 16:30 Urine Nitrate POSITIVE (NEGATIVE) H 06/24/18 16:30 Urine Bilirubin NEGATIVE (NEGATIVE) 06/24/18 16:30 Urine Urobilinogen 0.2 E.U./dL (0.2 - 1.0) 06/24/18 16:30 Ur Leukocyte Esterase SMALL (NEGATIVE) H 06/24/18 16:30 Urine RBC 2-5 /hpf (0-5) 06/24/18 16:30 Urine WBC 50-100 /hpf (0-5) H 06/24/18 16:30 Ur Epithelial Cells FEW /lpf (FEW) 06/24/18 16:30 Urine Bacteria FEW /hpf (NONE SEEN) 06/24/18 16:30 Valproic Acid 11.8 ug/mL (50.0-100.0) L 06/25/18 08:18 RPR NONREACTIVE (NONREACTIVE) 06/24/18 17:03 - Physical Exam Vitals and I&O: Vital Signs Temp 98.2 F 06/27/18 05:14 Pulse 69 06/27/18 09:19 Resp 20 06/27/18 08:00 BP 139/77 06/27/18 09:18 Pulse Ox 97 06/27/18 05:14 Intake & Output 06/26/18 06/27/18 06/27/18 18:59 06:59 18:59 Intake Total 1000 480 Balance 1000 480 Intake: Oral 1000 480 Other: # Voids 4 2 # Bowel Movements 2 Active Medications: Current Medications Acetaminophen (Tylenol) 650 mg PO Q4HR PRN PRN Reason: Mild Pain / Temp above 100 Stop: 08/23/18 19:31 Acetaminophen/Hydrocodone Bitart ([place] 10 Mg/325 Mg) 1 tab PO Q4H PRN PRN Reason: Pain (Severe) Acetaminophen/Hydrocodone Bitart ([place] 5mg/325mg) 1 tab PO Q4H PRN PRN Reason: Pain (Moderate) Stop: 08/23/18 19:31 Last Admin: 06/27/18 06:39 Dose: 1 tab Amiodarone HCl (Cordarone) 200 mg PO BID [facility] Stop: 08/24/18 08:59 Last Admin: 06/27/18 09:17 Dose: 200 mg Amlodipine Besylate (Norvasc) 10 mg PO DAILY [facility] Stop: 08/24/18 08:59 Last Admin: 06/27/18 09:18 Dose: 10 mg Aripiprazole (Abilify) 10 mg PO HS [facility]; Protocol Stop: 08/24/18 20:59 Last Admin: 06/26/18 21:29 Dose: 10 mg Aspirin (Aspirin Chewable) 81 mg PO DAILY [facility] Stop: 08/24/18 08:59 Last Admin: 06/27/18 09:18 Dose: 81 mg Azithromycin (Zithromax) 500 mg PO DAILY [facility] Stop: 06/28/18 09:01 Last Admin: 06/27/18 09:18 Dose: 500 mg Bisacodyl (Dulcolax 10 Mg Supp) 10 mg RC DAILY PRN PRN Reason: Constipation Stop: 08/23/18 19:31 Digoxin (Lanoxin) 0.25 mg PO DAILY [facility] Stop: 08/24/18 08:59 Last Admin: 06/27/18 09:19 Dose: 0.25 mg Escitalopram Oxalate (Lexapro) 15 mg PO DAILY [facility]; Protocol Stop: 08/24/18 08:59 Insulin Aspart (Novolog Insulin Sliding Scale) 0 units SUBQ ACHS [facility]; Protocol Stop: 08/23/18 22:15 Last Admin: 06/27/18 11:48 Dose: 9 units Miscellaneous (Apixaban [Eliquis]) 5 mg PO BID [facility] Stop: 08/24/18 08:59 Last Admin: 06/25/18 09:58 Dose: Not Given Nystatin (Nystop) 0 units TP DAILY [facility] Stop: 08/24/18 08:59 Last Admin: 06/27/18 09:20 Dose: 1,000 units Oxybutynin Chloride (Ditropan) 5 mg PO BID [facility] Stop: 08/24/18 08:59 Last Admin: 06/27/18 09:20 Dose: 5 mg Polyethylene Glycol (Miralax) 17 gm PO DAILY PRN PRN Reason: Constipation Stop: 08/23/18 19:31 Last Admin: 06/25/18 06:38 Dose: 17 gm Promethazine HCl/Codeine (Phenergan W/Cod Susp) 10 ml PO TID [facility] Stop: 06/28/18 22:59 Last Admin: 06/27/18 09:19 Dose: 10 ml Sitagliptin Phosphate (Januvia) 100 mg PO DAILY [facility] Stop: 08/24/18 08:59 Last Admin: 06/27/18 09:20 Dose: 100 mg Zolpidem Tartrate (Ambien) 10 mg PO HS PRN PRN Reason: Insomnia Stop: 08/23/18 19:31 Last Admin: 06/26/18 21:30 Dose: 10 mg General: demented, other (inpulsive, unpredictable ) HEENT: NC/AT Neck: Supple Lungs: CTAB Cardiovascular: RRR, Normal S1, Normal S2 Abdomen: soft, non-tender Extremities: clear Neurological: no change Internal Medicine Assmt/Plan - Assessment Assessment: aggresive behaviour 5150 hold htn dm bipolar diseasea gerd h/o fib insomnia constipation depression - Plan Plan: as per psych will monitor Nutritional Asmnt/Malnutr-PDOC - Dietary Evaluation Malnutrition Findings (Please click <Entered> for more info): Nutritional Asmnt/Malnutrition Start: 06/25/18 14: 31 Text: Status: Complete Freq: Protocol: Document 06/25/18 14:31 [email or web address] (Rec: 06/25/18 14:40 [email or web address]) Nutritional Asmnt/Malnutrition Patient General Information Nutritional Screening High Risk Consult Diagnosis psychosis nos Pertinent Medical Hx/Surgical Hx HTN, DM, arthritis of the knee , bipolar disorder, GERD, Afib , depression, anxiety, insomnia, constipation. depression, bipolar Subjective Information Consult recieved for diabetes. POC 400 on 06/24 noted. Pt was seen eating lunch in bed at time of visit. Lunch was seen eaten about 50%. Pt is alert but confused, unable to give DM education. Food preferences taken. Current Diet Order/ Nutrition Support low sodium 2gm, diabetic Pertinent Medications novolog, miralax, januvia, ambien Pertinent Labs 06/24 Na 134, alb 3.4, Triglycerides 397, POC 400 Nutritional Hx/Data Height 1.68 m Height (Calculated Centimeters) 167.6 Current Weight (lbs) 138.346 kg Weight (Calculated Kilograms) 138.3 Weight (Calculated Grams) 990576.7 [place] Body Weight 130 Body Mass Index (BMI) 49.2 Weight Status Morbidly Obese GI Symptoms GI Symptoms None Last BM not indicated Difficult in: None Food Allergies No Skin Integrity/Comment: mitul Dubose Current %PO Fair (50-74%) Estimated Nutritional Goals BEE in Kcals: Using Current wt Adj wt of IBW Calories/Kcals/Kg 25-30 Kcals Calculated Protein: Adj wt of IBW Protein g/k Protein Calculated 78 Fluid: ml (1ml/kcal) Nutritional Problem 1. Problem Problem altered nutrition related labs Etiology hyperglycemia Signs/Symptoms: POC 400 Malnutrition Alert Is there a minimum of two criteria No selected? Query Text:Check all the applicable criteria. A minimum of two criteria are recommended for diagnosis of either severe or non-severe malnutrition. Malnutrition Related to Morbid Obesity Malnutrition related to morbid obesity No Intervention/Recommendation Comments 1. Continue with low sodium 2gm, CCHO diet as ordered. 2. MD to modify insulin regmen for optimal glycemic control 3. Monitor PO intake, wt, labs and skin integrity 4. F/U as moderate risk in 3-5 days Expected Outcomes/Goals Expected Outcomes/Goals 1. PO intake to meet at least 75% of nutritional needs. 2. Wt stability, skin to remain intact, labs to approach WNL. Reviewed by Kristi Zurita RD
[2018-06-27] MEDS: Escitalopram Oxalate 10 MG, Escitalopram Oxalate 5 MG PO SCH (13:55)
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
[2018-06-28] MEDS: Hydrocodone/APAP 10 mg/325 mg Tab PO PRN ×3 (02:42→16:21)
[2018-06-28] MEDS: INSULIN ASPART SLIDING SCALE 100 UNITS/ML UNIT SUBQ SCH ×4 (06:43→21:21)
[2018-06-28] MEDS: Hydrocodone/APAP 5mg/325mg Tab PO PRN ×2 (06:54→21:19)
[2018-06-28] MEDS: Escitalopram Oxalate 10 MG, Escitalopram Oxalate 5 MG PO SCH (09:21)
[2018-06-28] MEDS: Aspirin 81mg Chewable Tab PO SCH (09:24)
[2018-06-28] MEDS: Multivitamin w/ Minerals Tab PO SCH (09:24)
[2018-06-28] MEDS: NYSTATIN 100000 UNITS/GM POWD TP SCH (09:26)
[2018-06-28] MEDS: Codeine/Promethazine Susp 5 mL UDC PO SCH ×3 (09:28→21:20)
--- NOTE | 2018-06-28 15:59 | Internal Medicine Prog Note ---
Internal Medicine Subjective - Subjective Service Date: 06/28/18 Patient is:: awake, verbal, agitated (admitted for aggresive behaviour, 5150 hold), confused, other (Angry an upset, has severe mood swings, can be danger to self and others.) Per staff patient has:: confused, other (Refuses to take Depakote has agreed to take Abilify.) Internal Medicine Objective - Results Result Diagrams: 06/24/18 17:03 06/24/18 17:03 Recent Labs: Laboratory Last Values WBC 7.1 Th/cmm (4.8-10.8) 06/24/18 17:03 RBC 4.48 Mil/cmm (3.80-5.20) 06/24/18 17:03 Hgb 12.5 gm/dL (12-16) 06/24/18 17:03 Hct 37.3 % (41.0-60) L 06/24/18 17:03 MCV 83.2 fl (81-100) 06/24/18 17:03 MCH 27.8 pg (27.0-31.0) 06/24/18 17:03 MCHC Differential 33.4 pg (28.0-36.0) 06/24/18 17:03 RDW 13.6 % (11.5-20.0) 06/24/18 17:03 Plt Count 266 Th/cmm (150-400) 06/24/18 17:03 MPV 6.3 fl 06/24/18 17:03 Neutrophils % 73.6 % (40.0-80.0) 06/24/18 17:03 Lymphocytes % 18.5 % (20.0-50.0) L 06/24/18 17:03 Monocytes % 6.4 % (2.0-10.0) 06/24/18 17:03 Eosinophils % 1.1 % (0.0-5.0) 06/24/18 17:03 Basophils % 0.4 % (0.0-2.0) 06/24/18 17:03 Sodium 134 mEq/L (136-145) L 06/24/18 17:03 Potassium 4.3 mEq/L (3.5-5.1) 06/24/18 17:03 Chloride 102 mEq/L (98-107) 06/24/18 17:03 Carbon Dioxide 21.4 mEq/L (21.0-31.0) 06/24/18 17:03 Anion Gap 14.9 (7.0-16.0) 06/24/18 17:03 BUN 15 mg/dL (7-25) 06/24/18 17:03 Creatinine 1.0 mg/dL (0.6-1.2) 06/24/18 17:03 Est GFR ( Amer) > 60.0 ml/min (>90) 06/24/18 17:03 Est GFR (Non-Af Amer) 59.0 ml/min 06/24/18 17:03 BUN/Creatinine Ratio 15.0 06/24/18 17:03 Glucose mg/dL (70-105) 06/24/18 17:03 POC Glucose 350 MG/DL (70 - 105) H 06/27/18 16:55 Calcium 8.9 mg/dL (8.6-10.3) 06/24/18 17:03 Total Bilirubin 0.3 mg/dL (0.3-1.0) 06/24/18 17:03 AST 16 U/L (13-39) 06/24/18 17:03 ALT 15 U/L (7-52) 06/24/18 17:03 Alkaline Phosphatase 80 U/L (34-104) 06/24/18 17:03 Total Protein 5.8 gm/dL (6.0-8.3) L 06/24/18 17:03 Albumin 3.4 gm/dL (3.7-5.3) L 06/24/18 17:03 Globulin 2.4 gm/dL 06/24/18 17:03 Albumin/Globulin Ratio 1.4 (1.0-1.8) 06/24/18 17:03 Triglycerides 397 mg/dL (<150) H 06/24/18 17:03 Cholesterol 159 mg/dL (<200) 06/24/18 17:03 LDL Cholesterol Direct 91 mg/dL (75-193) 06/24/18 17:03 HDL Cholesterol 29 mg/dL (23-92) 06/24/18 17:03 TSH 3.17 uIU/ml (0.34-5.60) 06/24/18 17:03 Urine Source CATH 06/24/18 16:30 Urine Color YELLOW 06/24/18 16:30 Urine Clarity CLOUDY (CLEAR) H 06/24/18 16:30 Urine pH 6.0 (4.6 - 8.0) 06/24/18 16:30 Ur Specific [place] 1.015 (1.005-1.030) 06/24/18 16:30 Urine Protein NEGATIVE mg/dL (NEGATIVE) 06/24/18 16:30 Urine Glucose (UA) >=1000 mg/dL (NEGATIVE) H 06/24/18 16:30 Urine Ketones NEGATIVE mg/dL (NEGATIVE) 06/24/18 16:30 Urine Blood SMALL (NEGATIVE) H 06/24/18 16:30 Urine Nitrate POSITIVE (NEGATIVE) H 06/24/18 16:30 Urine Bilirubin NEGATIVE (NEGATIVE) 06/24/18 16:30 Urine Urobilinogen 0.2 E.U./dL (0.2 - 1.0) 06/24/18 16:30 Ur Leukocyte Esterase SMALL (NEGATIVE) H 06/24/18 16:30 Urine RBC 2-5 /hpf (0-5) 06/24/18 16:30 Urine WBC 50-100 /hpf (0-5) H 06/24/18 16:30 Ur Epithelial Cells FEW /lpf (FEW) 06/24/18 16:30 Urine Bacteria FEW /hpf (NONE SEEN) 06/24/18 16:30 Valproic Acid 11.8 ug/mL (50.0-100.0) L 06/25/18 08:18 RPR NONREACTIVE (NONREACTIVE) 06/24/18 17:03 - Physical Exam Vitals and I&O: Vital Signs Temp 97.7 F 06/28/18 06:19 Pulse 80 06/28/18 09:24 Resp 19 06/28/18 06:19 BP 137/70 06/28/18 09:24 Pulse Ox 92 06/28/18 06:19 Intake & Output 06/27/18 06/28/18 06/28/18 18:59 06:59 18:59 Intake Total 240 Balance 240 Intake: Oral 240 Other: # Voids 2 # Bowel Movements 2 Active Medications: Current Medications Acetaminophen (Tylenol) 650 mg PO Q4HR PRN PRN Reason: Mild Pain / Temp above 100 Stop: 08/23/18 19:31 Acetaminophen/Hydrocodone Bitart ([place] 10 Mg/325 Mg) 1 tab PO Q4H PRN PRN Reason: Pain (Severe) Last Admin: 06/28/18 09:23 Dose: 1 tab Acetaminophen/Hydrocodone Bitart ([place] 5mg/325mg) 1 tab PO Q4H PRN PRN Reason: Pain (Moderate) Stop: 08/23/18 19:31 Last Admin: 06/28/18 06:54 Dose: 1 tab Amiodarone HCl (Cordarone) 200 mg PO BID [facility] Stop: 08/24/18 08:59 Last Admin: 06/28/18 09:24 Dose: 200 mg Amlodipine Besylate (Norvasc) 10 mg PO DAILY [facility] Stop: 08/24/18 08:59 Last Admin: 06/28/18 09:24 Dose: 10 mg Aripiprazole (Abilify) 10 mg PO HS [facility]; Protocol Stop: 08/24/18 20:59 Last Admin: 06/27/18 20:28 Dose: Not Given Aspirin (Aspirin Chewable) 81 mg PO DAILY [facility] Stop: 08/24/18 08:59 Last Admin: 06/28/18 09:24 Dose: 81 mg Bisacodyl (Dulcolax 10 Mg Supp) 10 mg RC DAILY PRN PRN Reason: Constipation Stop: 08/23/18 19:31 Digoxin (Lanoxin) 0.25 mg PO DAILY [facility] Stop: 08/24/18 08:59 Last Admin: 06/28/18 09:23 Dose: 0.25 mg Escitalopram Oxalate 10 mg/ (Escitalopram Oxalate 5 mg) 15 mg PO DAILY [facility] Stop: 08/26/18 13:59 Last Admin: 06/28/18 09:21 Dose: 15 mg Insulin Aspart (Novolog Insulin Sliding Scale) 0 units SUBQ ACHS [facility]; Protocol Stop: 08/23/18 22:15 Last Admin: 06/28/18 11:28 Dose: 9 units Nitrofurantoin Macrocrystals (Macrobid) 100 mg PO BID [facility]; Protocol Stop: 08/26/18 16:59 Last Admin: 06/28/18 09:21 Dose: 100 mg Nystatin (Nystop) 0 units TP DAILY [facility] Stop: 08/24/18 08:59 Last Admin: 06/28/18 09:26 Dose: 1,000 units Oxybutynin Chloride (Ditropan) 5 mg PO BID [facility] Stop: 08/24/18 08:59 Last Admin: 06/28/18 09:21 Dose: 5 mg Polyethylene Glycol (Miralax) 17 gm PO DAILY PRN PRN Reason: Constipation Stop: 08/23/18 19:31 Last Admin: 06/25/18 06:38 Dose: 17 gm Promethazine HCl/Codeine (Phenergan W/Cod Susp) 10 ml PO TID [facility] Stop: 06/28/18 22:59 Last Admin: 06/28/18 13:06 Dose: Not Given Rivaroxaban (Xarelto) 20 mg PO DAILY [facility] Stop: 08/26/18 13:29 Last Admin: 06/28/18 09:00 Dose: 20 mg Sitagliptin Phosphate (Januvia) 100 mg PO DAILY [facility] Stop: 08/24/18 08:59 Last Admin: 06/28/18 09:22 Dose: 100 mg Zolpidem Tartrate (Ambien) 10 mg PO HS PRN PRN Reason: Insomnia Stop: 08/23/18 19:31 Last Admin: 06/27/18 20:27 Dose: 10 mg General: demented, other (inpulsive, unpredictable ) HEENT: NC/AT Neck: Supple Lungs: CTAB Cardiovascular: RRR, Normal S1, Normal S2 Abdomen: soft, non-tender Extremities: clear Neurological: no change Internal Medicine Assmt/Plan - Assessment Assessment: Mood swings aggresive behaviour 5150 hold htn dm bipolar disease gerd h/o fib insomnia constipation depression - Plan Plan: as per psych will monitor closely and will followup Nutritional Asmnt/Malnutr-PDOC - Dietary Evaluation Malnutrition Findings (Please click <Entered> for more info): Nutritional Asmnt/Malnutrition Start: 06/25/18 14: 31 Text: Status: Complete Freq: Protocol: Document 06/25/18 14:31 [email or web address] (Rec: 06/25/18 14:40 [email or web address]) Nutritional Asmnt/Malnutrition Patient General Information Nutritional Screening High Risk Consult Diagnosis psychosis nos Pertinent Medical Hx/Surgical Hx HTN, DM, arthritis of the knee , bipolar disorder, GERD, Afib , depression, anxiety, insomnia, constipation. depression, bipolar Subjective Information Consult recieved for diabetes. POC 400 on 06/24 noted. Pt was seen eating lunch in bed at time of visit. Lunch was seen eaten about 50%. Pt is alert but confused, unable to give DM education. Food preferences taken. Current Diet Order/ Nutrition Support low sodium 2gm, diabetic Pertinent Medications novolog, miralax, januvia, ambien Pertinent Labs 06/24 Na 134, alb 3.4, Triglycerides 397, POC 400 Nutritional Hx/Data Height 1.68 m Height (Calculated Centimeters) 167.6 Current Weight (lbs) 138.346 kg Weight (Calculated Kilograms) 138.3 Weight (Calculated Grams) 620708.7 [place] Body Weight 130 Body Mass Index (BMI) 49.2 Weight Status Morbidly Obese GI Symptoms GI Symptoms None Last BM not indicated Difficult in: None Food Allergies No Skin Integrity/Comment: mitul Dubose Current %PO Fair (50-74%) Estimated Nutritional Goals BEE in Kcals: Using Current wt Adj wt of IBW Calories/Kcals/Kg 25-30 Kcals Calculated [id number] Protein: Adj wt of IBW Protein g/k Protein Calculated Fluid: ml (1ml/kcal) Nutritional Problem 1. Problem Problem altered nutrition related labs Etiology hyperglycemia Signs/Symptoms: POC 400 Malnutrition Alert Is there a minimum of two criteria No selected? Query Text:Check all the applicable criteria. A minimum of two criteria are recommended for diagnosis of either severe or non-severe malnutrition. Malnutrition Related to Morbid Obesity Malnutrition related to morbid obesity No Intervention/Recommendation Comments 1. Continue with low sodium 2gm, CCHO diet as ordered. 2. MD to modify insulin regmen for optimal glycemic control 3. Monitor PO intake, wt, labs and skin integrity 4. F/U as moderate risk in 3-5 days Expected Outcomes/Goals Expected Outcomes/Goals 1. PO intake to meet at least 75% of nutritional needs. 2. Wt stability, skin to remain intact, labs to approach WNL. Reviewed by Kristi Zurita RD
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
[2018-06-29] MEDS: Hydrocodone/APAP 5mg/325mg Tab PO PRN (06:43)
[2018-06-29] MEDS: INSULIN ASPART SLIDING SCALE 100 UNITS/ML UNIT SUBQ SCH ×4 (06:52→20:35)
[2018-06-29] MEDS: Aspirin 81mg Chewable Tab PO SCH (08:34)
[2018-06-29] MEDS: Multivitamin w/ Minerals Tab PO SCH (08:34)
[2018-06-29] MEDS: Escitalopram Oxalate 10 MG, Escitalopram Oxalate 5 MG PO SCH (08:35)
[2018-06-29] MEDS: NYSTATIN 100000 UNITS/GM POWD TP SCH (11:02)
[2018-06-29] MEDS: Hydrocodone/APAP 10 mg/325 mg Tab PO PRN ×2 (11:06→16:52)
[2018-06-29] MEDS ORDERED: INSULIN ASPART SLIDING SCALE 100 UNITS/ML UNIT SUBQ SCH (11:30)
--- NOTE | 2018-06-29 13:53 | Internal Medicine Prog Note ---
Internal Medicine Subjective - Subjective Service Date: 06/29/18 Patient is:: awake, verbal, agitated (admitted for aggresive behaviour, 5150 hold), confused, other (Angry an upset, has severe mood swings, can be danger to self and others.) Per staff patient has:: confused, other (Refuses to take Depakote has agreed to take Abilify.) Internal Medicine Objective - Results Result Diagrams: 06/24/18 17:03 06/24/18 17:03 Recent Labs: Laboratory Last Values WBC 7.1 Th/cmm (4.8-10.8) 06/24/18 17:03 RBC 4.48 Mil/cmm (3.80-5.20) 06/24/18 17:03 Hgb 12.5 gm/dL (12-16) 06/24/18 17:03 Hct 37.3 % (41.0-60) L 06/24/18 17:03 MCV 83.2 fl (81-100) 06/24/18 17:03 MCH 27.8 pg (27.0-31.0) 06/24/18 17:03 MCHC Differential 33.4 pg (28.0-36.0) 06/24/18 17:03 RDW 13.6 % (11.5-20.0) 06/24/18 17:03 Plt Count 266 Th/cmm (150-400) 06/24/18 17:03 MPV 6.3 fl 06/24/18 17:03 Neutrophils % 73.6 % (40.0-80.0) 06/24/18 17:03 Lymphocytes % 18.5 % (20.0-50.0) L 06/24/18 17:03 Monocytes % 6.4 % (2.0-10.0) 06/24/18 17:03 Eosinophils % 1.1 % (0.0-5.0) 06/24/18 17:03 Basophils % 0.4 % (0.0-2.0) 06/24/18 17:03 Sodium 134 mEq/L (136-145) L 06/24/18 17:03 Potassium 4.3 mEq/L (3.5-5.1) 06/24/18 17:03 Chloride 102 mEq/L (98-107) 06/24/18 17:03 Carbon Dioxide 21.4 mEq/L (21.0-31.0) 06/24/18 17:03 Anion Gap 14.9 (7.0-16.0) 06/24/18 17:03 BUN 15 mg/dL (7-25) 06/24/18 17:03 Creatinine 1.0 mg/dL (0.6-1.2) 06/24/18 17:03 Est GFR ( Amer) > 60.0 ml/min (>90) 06/24/18 17:03 Est GFR (Non-Af Amer) 59.0 ml/min 06/24/18 17:03 BUN/Creatinine Ratio 15.0 06/24/18 17:03 Glucose mg/dL (70-105) 06/24/18 17:03 POC Glucose 350 MG/DL (70 - 105) H 06/27/18 16:55 Calcium 8.9 mg/dL (8.6-10.3) 06/24/18 17:03 Total Bilirubin 0.3 mg/dL (0.3-1.0) 06/24/18 17:03 AST 16 U/L (13-39) 06/24/18 17:03 ALT 15 U/L (7-52) 06/24/18 17:03 Alkaline Phosphatase 80 U/L (34-104) 06/24/18 17:03 Total Protein 5.8 gm/dL (6.0-8.3) L 06/24/18 17:03 Albumin 3.4 gm/dL (3.7-5.3) L 06/24/18 17:03 Globulin 2.4 gm/dL 06/24/18 17:03 Albumin/Globulin Ratio 1.4 (1.0-1.8) 06/24/18 17:03 Triglycerides 397 mg/dL (<150) H 06/24/18 17:03 Cholesterol 159 mg/dL (<200) 06/24/18 17:03 LDL Cholesterol Direct 91 mg/dL (75-193) 06/24/18 17:03 HDL Cholesterol 29 mg/dL (23-92) 06/24/18 17:03 TSH 3.17 uIU/ml (0.34-5.60) 06/24/18 17:03 Urine Source CATH 06/24/18 16:30 Urine Color YELLOW 06/24/18 16:30 Urine Clarity CLOUDY (CLEAR) H 06/24/18 16:30 Urine pH 6.0 (4.6 - 8.0) 06/24/18 16:30 Ur Specific [place] 1.015 (1.005-1.030) 06/24/18 16:30 Urine Protein NEGATIVE mg/dL (NEGATIVE) 06/24/18 16:30 Urine Glucose (UA) >=1000 mg/dL (NEGATIVE) H 06/24/18 16:30 Urine Ketones NEGATIVE mg/dL (NEGATIVE) 06/24/18 16:30 Urine Blood SMALL (NEGATIVE) H 06/24/18 16:30 Urine Nitrate POSITIVE (NEGATIVE) H 06/24/18 16:30 Urine Bilirubin NEGATIVE (NEGATIVE) 06/24/18 16:30 Urine Urobilinogen 0.2 E.U./dL (0.2 - 1.0) 06/24/18 16:30 Ur Leukocyte Esterase SMALL (NEGATIVE) H 06/24/18 16:30 Urine RBC 2-5 /hpf (0-5) 06/24/18 16:30 Urine WBC 50-100 /hpf (0-5) H 06/24/18 16:30 Ur Epithelial Cells FEW /lpf (FEW) 06/24/18 16:30 Urine Bacteria FEW /hpf (NONE SEEN) 06/24/18 16:30 Valproic Acid 11.8 ug/mL (50.0-100.0) L 06/25/18 08:18 RPR NONREACTIVE (NONREACTIVE) 06/24/18 17:03 - Physical Exam Vitals and I&O: Vital Signs Temp 99.2 F 06/29/18 06:10 Pulse 87 06/29/18 08:35 Resp 18 06/29/18 08:00 BP 145/70 06/29/18 08:35 Pulse Ox 93 06/29/18 06:10 Intake & Output 06/28/18 06/29/18 06/29/18 18:59 06:59 18:59 Intake Total 1500 240 Balance 1500 240 Intake: Oral 1500 240 Other: # Voids 3 2 # Bowel Movements 1 Active Medications: Current Medications Acetaminophen (Tylenol) 650 mg PO Q4HR PRN PRN Reason: Mild Pain / Temp above 100 Stop: 08/23/18 19:31 Acetaminophen/Hydrocodone Bitart ([place] 10 Mg/325 Mg) 1 tab PO Q4H PRN PRN Reason: Pain (Severe) Last Admin: 06/29/18 11:06 Dose: 1 tab Acetaminophen/Hydrocodone Bitart ([place] 5mg/325mg) 1 tab PO Q4H PRN PRN Reason: Pain (Moderate) Stop: 08/23/18 19:31 Last Admin: 06/29/18 06:43 Dose: 1 tab Amiodarone HCl (Cordarone) 200 mg PO BID [facility] Stop: 08/24/18 08:59 Last Admin: 06/29/18 08:35 Dose: 200 mg Amlodipine Besylate (Norvasc) 10 mg PO DAILY [facility] Stop: 08/24/18 08:59 Last Admin: 06/29/18 08:35 Dose: 10 mg Aripiprazole (Abilify) 10 mg PO HS [facility]; Protocol Stop: 08/24/18 20:59 Last Admin: 06/28/18 21:21 Dose: 10 mg Aspirin (Aspirin Chewable) 81 mg PO DAILY [facility] Stop: 08/24/18 08:59 Last Admin: 06/29/18 08:34 Dose: 81 mg Bisacodyl (Dulcolax 10 Mg Supp) 10 mg RC DAILY PRN PRN Reason: Constipation Stop: 08/23/18 19:31 Digoxin (Lanoxin) 0.25 mg PO DAILY [facility] Stop: 08/24/18 08:59 Last Admin: 06/29/18 08:35 Dose: 0.25 mg Escitalopram Oxalate 10 mg/ (Escitalopram Oxalate 5 mg) 15 mg PO DAILY [facility] Stop: 08/26/18 13:59 Last Admin: 06/29/18 08:35 Dose: 15 mg Insulin Aspart (Novolog Insulin Sliding Scale) 0 units SUBQ ACHS [facility]; Protocol Stop: 08/23/18 22:15 Last Admin: 06/29/18 12:00 Dose: 12 units Nitrofurantoin Macrocrystals (Macrobid) 100 mg PO BID [facility]; Protocol Stop: 08/26/18 16:59 Last Admin: 06/29/18 08:35 Dose: 100 mg Nystatin (Nystop) 0 units TP DAILY [facility] Stop: 08/24/18 08:59 Last Admin: 06/29/18 11:02 Dose: 100,000 units Oxybutynin Chloride (Ditropan) 5 mg PO BID [facility] Stop: 08/24/18 08:59 Last Admin: 06/29/18 08:36 Dose: 5 mg Polyethylene Glycol (Miralax) 17 gm PO DAILY PRN PRN Reason: Constipation Stop: 08/23/18 19:31 Last Admin: 06/25/18 06:38 Dose: 17 gm Promethazine HCl/Codeine (Phenergan W/Cod Susp) 10 ml PO TID [facility] Stop: 07/02/18 13:59 Rivaroxaban (Xarelto) 20 mg PO DAILY [facility] Stop: 08/26/18 13:29 Last Admin: 06/29/18 08:36 Dose: 20 mg Sitagliptin Phosphate (Januvia) 100 mg PO DAILY [facility] Stop: 08/24/18 08:59 Last Admin: 06/29/18 08:35 Dose: 100 mg Zolpidem Tartrate (Ambien) 10 mg PO HS PRN PRN Reason: Insomnia Stop: 08/23/18 19:31 Last Admin: 06/28/18 21:20 Dose: 10 mg General: demented, other (inpulsive, unpredictable ) HEENT: NC/AT Neck: Supple Lungs: CTAB Cardiovascular: RRR, Normal S1, Normal S2 Abdomen: soft, non-tender Extremities: clear Neurological: no change Internal Medicine Assmt/Plan - Assessment Assessment: Mood swings aggresive behaviour 5150 hold htn dm bipolar disease gerd h/o fib insomnia constipation depression - Plan Plan: METFORMIN ADDED MONITOR S/SX OF HYPO/HYPERGLYCEMIA CPM Nutritional Asmnt/Malnutr-PDOC - Dietary Evaluation Malnutrition Findings (Please click <Entered> for more info): Nutritional Asmnt/Malnutrition Start: 06/25/18 14: 31 Text: Status: Complete Freq: Protocol: Document 06/25/18 14:31 [email or web address] (Rec: 06/25/18 14:40 [email or web address]) Nutritional Asmnt/Malnutrition Patient General Information Nutritional Screening High Risk Consult Diagnosis psychosis nos Pertinent Medical Hx/Surgical Hx HTN, DM, arthritis of the knee , bipolar disorder, GERD, Afib , depression, anxiety, insomnia, constipation. depression, bipolar Subjective Information Consult recieved for diabetes. POC 400 on 06/24 noted. Pt was seen eating lunch in bed at time of visit. Lunch was seen eaten about 50%. Pt is alert but confused, unable to give DM education. Food preferences taken. Current Diet Order/ Nutrition Support low sodium 2gm, diabetic Pertinent Medications novolog, miralax, januvia, ambien Pertinent Labs 06/24 Na 134, alb 3.4, Triglycerides 397, POC 400 Nutritional Hx/Data Height 5 ft 6 in Height (Calculated Centimeters) 167.6 Current Weight (lbs) 305 lb Weight (Calculated Kilograms) 138.3 Weight (Calculated Grams) 625457.7 [place] Body Weight 130 Body Mass Index (BMI) 49.2 Weight Status Morbidly Obese GI Symptoms GI Symptoms None Last BM not indicated Difficult in: None Food Allergies No Skin Integrity/Comment: mitul [place] Current %PO Fair (50-74%) Estimated Nutritional Goals BEE in Kcals: Using Current wt Adj wt of IBW Calories/Kcals/Kg 25-30 Kcals Calculated 3432-7718 Protein: Adj wt of IBW Protein g/k Protein Calculated Fluid: ml 8927-0840 (1ml/kcal) Nutritional Problem 1. Problem Problem altered nutrition related labs Etiology hyperglycemia Signs/Symptoms: POC 400 Malnutrition Alert Is there a minimum of two criteria No selected? Query Text:Check all the applicable criteria. A minimum of two criteria are recommended for diagnosis of either severe or non-severe malnutrition. Malnutrition Related to Morbid Obesity Malnutrition related to morbid obesity No Intervention/Recommendation Comments 1. Continue with low sodium 2gm, CCHO diet as ordered. 2. MD to modify insulin regmen for optimal glycemic control 3. Monitor PO intake, wt, labs and skin integrity 4. F/U as moderate risk in 3-5 days Expected Outcomes/Goals Expected Outcomes/Goals 1. PO intake to meet at least 75% of nutritional needs. 2. Wt stability, skin to remain intact, labs to approach WNL. Reviewed by Kristi Zurita RD
[2018-06-29] MEDS: Codeine/Promethazine Susp 5 mL UDC PO SCH ×3 (17:54→20:45)
[2018-06-29] MEDS: POLYETHYLENE GLYCOL 3350 17 GM PACK PO PRN (17:59)
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
[2018-06-30] MEDS: INSULIN ASPART SLIDING SCALE 100 UNITS/ML UNIT SUBQ SCH ×4 (06:50→20:33)
[2018-06-30] MEDS: Hydrocodone/APAP 10 mg/325 mg Tab PO PRN ×2 (06:52→20:32)
[2018-06-30] MEDS: NYSTATIN 100000 UNITS/GM POWD TP SCH (08:44)
[2018-06-30] MEDS: Multivitamin w/ Minerals Tab PO SCH (08:47)
[2018-06-30] MEDS: Aspirin 81mg Chewable Tab PO SCH (08:48)
[2018-06-30] MEDS: Escitalopram Oxalate 10 MG, Escitalopram Oxalate 5 MG PO SCH (08:50)
[2018-06-30] MEDS: Codeine/Promethazine Susp 5 mL UDC PO SCH ×3 (08:51→22:06)
[2018-06-30] MEDS: Hydrocodone/APAP 5mg/325mg Tab PO PRN (12:34)
[2018-06-30] MEDS: POLYETHYLENE GLYCOL 3350 17 GM PACK PO PRN (14:07)
--- NOTE | 2018-06-30 20:25 | Internal Medicine Prog Note ---
Internal Medicine Subjective - Subjective Service Date: 06/30/18 Patient is:: awake, verbal, agitated (admitted for aggresive behaviour, 5150 hold), confused, other (Angry an upset, has severe mood swings, can be danger to self and others.) Per staff patient has:: confused, other (Refuses to take Depakote has agreed to take Abilify.) Internal Medicine Objective - Results Result Diagrams: 06/24/18 17:03 06/24/18 17:03 Recent Labs: Laboratory Last Values WBC 7.1 Th/cmm (4.8-10.8) 06/24/18 17:03 RBC 4.48 Mil/cmm (3.80-5.20) 06/24/18 17:03 Hgb 12.5 gm/dL (12-16) 06/24/18 17:03 Hct 37.3 % (41.0-60) L 06/24/18 17:03 MCV 83.2 fl (81-100) 06/24/18 17:03 MCH 27.8 pg (27.0-31.0) 06/24/18 17:03 MCHC Differential 33.4 pg (28.0-36.0) 06/24/18 17:03 RDW 13.6 % (11.5-20.0) 06/24/18 17:03 Plt Count 266 Th/cmm (150-400) 06/24/18 17:03 MPV 6.3 fl 06/24/18 17:03 Neutrophils % 73.6 % (40.0-80.0) 06/24/18 17:03 Lymphocytes % 18.5 % (20.0-50.0) L 06/24/18 17:03 Monocytes % 6.4 % (2.0-10.0) 06/24/18 17:03 Eosinophils % 1.1 % (0.0-5.0) 06/24/18 17:03 Basophils % 0.4 % (0.0-2.0) 06/24/18 17:03 Sodium 134 mEq/L (136-145) L 06/24/18 17:03 Potassium 4.3 mEq/L (3.5-5.1) 06/24/18 17:03 Chloride 102 mEq/L (98-107) 06/24/18 17:03 Carbon Dioxide 21.4 mEq/L (21.0-31.0) 06/24/18 17:03 Anion Gap 14.9 (7.0-16.0) 06/24/18 17:03 BUN 15 mg/dL (7-25) 06/24/18 17:03 Creatinine 1.0 mg/dL (0.6-1.2) 06/24/18 17:03 Est GFR ( Amer) > 60.0 ml/min (>90) 06/24/18 17:03 Est GFR (Non-Af Amer) 59.0 ml/min 06/24/18 17:03 BUN/Creatinine Ratio 15.0 06/24/18 17:03 Glucose mg/dL (70-105) 06/24/18 17:03 POC Glucose 350 MG/DL (70 - 105) H 06/27/18 16:55 Calcium 8.9 mg/dL (8.6-10.3) 06/24/18 17:03 Total Bilirubin 0.3 mg/dL (0.3-1.0) 06/24/18 17:03 AST 16 U/L (13-39) 06/24/18 17:03 ALT 15 U/L (7-52) 06/24/18 17:03 Alkaline Phosphatase 80 U/L (34-104) 06/24/18 17:03 Total Protein 5.8 gm/dL (6.0-8.3) L 06/24/18 17:03 Albumin 3.4 gm/dL (3.7-5.3) L 06/24/18 17:03 Globulin 2.4 gm/dL 06/24/18 17:03 Albumin/Globulin Ratio 1.4 (1.0-1.8) 06/24/18 17:03 Triglycerides 397 mg/dL (<150) H 06/24/18 17:03 Cholesterol 159 mg/dL (<200) 06/24/18 17:03 LDL Cholesterol Direct 91 mg/dL (75-193) 06/24/18 17:03 HDL Cholesterol 29 mg/dL (23-92) 06/24/18 17:03 TSH 3.17 uIU/ml (0.34-5.60) 06/24/18 17:03 Urine Source CATH 06/24/18 16:30 Urine Color YELLOW 06/24/18 16:30 Urine Clarity CLOUDY (CLEAR) H 06/24/18 16:30 Urine pH 6.0 (4.6 - 8.0) 06/24/18 16:30 Ur Specific [place] 1.015 (1.005-1.030) 06/24/18 16:30 Urine Protein NEGATIVE mg/dL (NEGATIVE) 06/24/18 16:30 Urine Glucose (UA) >=1000 mg/dL (NEGATIVE) H 06/24/18 16:30 Urine Ketones NEGATIVE mg/dL (NEGATIVE) 06/24/18 16:30 Urine Blood SMALL (NEGATIVE) H 06/24/18 16:30 Urine Nitrate POSITIVE (NEGATIVE) H 06/24/18 16:30 Urine Bilirubin NEGATIVE (NEGATIVE) 06/24/18 16:30 Urine Urobilinogen 0.2 E.U./dL (0.2 - 1.0) 06/24/18 16:30 Ur Leukocyte Esterase SMALL (NEGATIVE) H 06/24/18 16:30 Urine RBC 2-5 /hpf (0-5) 06/24/18 16:30 Urine WBC 50-100 /hpf (0-5) H 06/24/18 16:30 Ur Epithelial Cells FEW /lpf (FEW) 06/24/18 16:30 Urine Bacteria FEW /hpf (NONE SEEN) 06/24/18 16:30 Valproic Acid 11.8 ug/mL (50.0-100.0) L 06/25/18 08:18 RPR NONREACTIVE (NONREACTIVE) 06/24/18 17:03 - Physical Exam Vitals and I&O: Vital Signs Temp 98.7 F 06/30/18 14:00 Pulse 76 06/30/18 16:35 Resp 20 06/30/18 14:00 BP 130/76 06/30/18 14:00 Pulse Ox 90 06/30/18 14:00 Intake & Output 06/30/18 06/30/18 07/01/18 06:59 18:59 06:59 Intake Total 240 1200 Output Total 1 Balance 239 1200 Intake: Oral 240 1200 Output: Urine/Stool Mix 1 Other: # Voids 1 # Bowel Movements 1 1 Stool Characteristics Soft Active Medications: Current Medications Acetaminophen (Tylenol) 650 mg PO Q4HR PRN PRN Reason: Mild Pain / Temp above 100 Stop: 08/23/18 19:31 Acetaminophen/Hydrocodone Bitart ([place] 10 Mg/325 Mg) 1 tab PO Q4H PRN PRN Reason: Pain (Severe) Last Admin: 06/30/18 06:52 Dose: 1 tab Acetaminophen/Hydrocodone Bitart ([place] 5mg/325mg) 1 tab PO Q4H PRN PRN Reason: Pain (Moderate) Stop: 08/23/18 19:31 Last Admin: 06/30/18 12:34 Dose: 1 tab Amiodarone HCl (Cordarone) 200 mg PO BID [facility] Stop: 08/24/18 08:59 Last Admin: 06/30/18 16:35 Dose: 200 mg Amlodipine Besylate (Norvasc) 10 mg PO DAILY [facility] Stop: 08/24/18 08:59 Last Admin: 06/30/18 08:49 Dose: 10 mg Aripiprazole (Abilify) 10 mg PO HS [facility]; Protocol Stop: 08/24/18 20:59 Last Admin: 06/29/18 20:29 Dose: 10 mg Aspirin (Aspirin Chewable) 81 mg PO DAILY [facility] Stop: 08/24/18 08:59 Last Admin: 06/30/18 08:48 Dose: 81 mg Bisacodyl (Dulcolax 10 Mg Supp) 10 mg RC DAILY PRN PRN Reason: Constipation Stop: 08/23/18 19:31 Digoxin (Lanoxin) 0.25 mg PO DAILY [facility] Stop: 08/24/18 08:59 Last Admin: 06/30/18 08:47 Dose: 0.25 mg Escitalopram Oxalate 10 mg/ (Escitalopram Oxalate 5 mg) 15 mg PO DAILY [facility] Stop: 08/26/18 13:59 Last Admin: 06/30/18 08:50 Dose: 15 mg Insulin Aspart (Novolog Insulin Sliding Scale) 0 units SUBQ ACHS [facility]; Protocol Stop: 08/23/18 22:15 Last Admin: 06/30/18 16:53 Dose: 12 units Metformin HCl (Glucophage) 500 mg PO BIDWM [facility] Stop: 08/28/18 17:59 Last Admin: 06/30/18 16:59 Dose: 500 mg Nitrofurantoin Macrocrystals (Macrobid) 100 mg PO BID [facility]; Protocol Stop: 08/26/18 16:59 Last Admin: 06/30/18 16:35 Dose: 100 mg Nystatin (Nystop) 0 units TP DAILY [facility] Stop: 08/24/18 08:59 Last Admin: 06/30/18 08:44 Dose: 1,000 units Oxybutynin Chloride (Ditropan) 5 mg PO BID [facility] Stop: 08/24/18 08:59 Last Admin: 06/30/18 16:35 Dose: 5 mg Polyethylene Glycol (Miralax) 17 gm PO DAILY PRN PRN Reason: Constipation Stop: 08/23/18 19:31 Last Admin: 06/30/18 14:07 Dose: 17 gm Promethazine HCl/Codeine (Phenergan W/Cod Susp) 10 ml PO TID [facility] Stop: 07/02/18 13:59 Last Admin: 06/30/18 14:11 Dose: Not Given Rivaroxaban (Xarelto) 20 mg PO DAILY [facility] Stop: 08/26/18 13:29 Last Admin: 06/30/18 08:48 Dose: 20 mg Sitagliptin Phosphate (Januvia) 100 mg PO DAILY [facility] Stop: 08/24/18 08:59 Last Admin: 06/30/18 08:48 Dose: 100 mg Zolpidem Tartrate (Ambien) 10 mg PO HS PRN PRN Reason: Insomnia Stop: 08/23/18 19:31 Last Admin: 06/29/18 20:31 Dose: 10 mg General: demented, other (inpulsive, unpredictable ) HEENT: NC/AT Neck: Supple Lungs: CTAB Cardiovascular: RRR, Normal S1, Normal S2 Abdomen: soft, non-tender Extremities: clear Neurological: no change Internal Medicine Assmt/Plan - Assessment Assessment: Mood swings aggresive behaviour 5150 hold htn dm bipolar disease gerd h/o fib insomnia constipation depression - Plan Plan: METFORMIN ADDED MONITOR S/SX OF HYPO/HYPERGLYCEMIA CPM Nutritional Asmnt/Malnutr-PDOC - Dietary Evaluation Malnutrition Findings (Please click <Entered> for more info): Nutritional Asmnt/Malnutrition Start: 06/25/18 14: 31 Text: Status: Complete Freq: Protocol: Document 06/25/18 14:31 [email or web address] (Rec: 06/25/18 14:40 [email or web address]) Nutritional Asmnt/Malnutrition Patient General Information Nutritional Screening High Risk Consult Diagnosis psychosis nos Pertinent Medical Hx/Surgical Hx HTN, DM, arthritis of the knee , bipolar disorder, GERD, Afib , depression, anxiety, insomnia, constipation. depression, bipolar Subjective Information Consult recieved for diabetes. POC 400 on 06/24 noted. Pt was seen eating lunch in bed at time of visit. Lunch was seen eaten about 50%. Pt is alert but confused, unable to give DM education. Food preferences taken. Current Diet Order/ Nutrition Support low sodium 2gm, diabetic Pertinent Medications novolog, miralax, januvia, ambien Pertinent Labs 06/24 Na 134, alb 3.4, Triglycerides 397, POC 400 Nutritional Hx/Data Height 5 ft 6 in Height (Calculated Centimeters) 167.6 Current Weight (lbs) 305 lb Weight (Calculated Kilograms) 138.3 Weight (Calculated Grams) 253124.7 [place] Body Weight 130 Body Mass Index (BMI) 49.2 Weight Status Morbidly Obese GI Symptoms GI Symptoms None Last BM not indicated Difficult in: None Food Allergies No Skin Integrity/Comment: mitul 10 Current %PO Fair (50-74%) Estimated Nutritional Goals BEE in Kcals: Using Current wt Adj wt of IBW Calories/Kcals/Kg 25-30 Kcals Calculated Protein: Adj wt of IBW Protein g/k Protein Calculated 78 Fluid: ml (1ml/kcal) Nutritional Problem 1. Problem Problem altered nutrition related labs Etiology hyperglycemia Signs/Symptoms: POC 400 Malnutrition Alert Is there a minimum of two criteria No selected? Query Text:Check all the applicable criteria. A minimum of two criteria are recommended for diagnosis of either severe or non-severe malnutrition. Malnutrition Related to Morbid Obesity Malnutrition related to morbid obesity No Intervention/Recommendation Comments 1. Continue with low sodium 2gm, CCHO diet as ordered. 2. MD to modify insulin regmen for optimal glycemic control 3. Monitor PO intake, wt, labs and skin integrity 4. F/U as moderate risk in 3-5 days Expected Outcomes/Goals Expected Outcomes/Goals 1. PO intake to meet at least 75% of nutritional needs. 2. Wt stability, skin to remain intact, labs to approach WNL. Reviewed by Kristi Zurita RD
[2018-07-01] MEDS: Hydrocodone/APAP 5mg/325mg Tab PO PRN ×4 (04:15→20:46)
[2018-07-01] MEDS: INSULIN ASPART SLIDING SCALE 100 UNITS/ML UNIT SUBQ SCH ×4 (06:46→20:49)
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
[2018-07-01] MEDS: Aspirin 81mg Chewable Tab PO SCH (09:23)
[2018-07-01] MEDS: Codeine/Promethazine Susp 5 mL UDC PO SCH ×3 (09:23→21:00)
[2018-07-01] MEDS: Escitalopram Oxalate 10 MG, Escitalopram Oxalate 5 MG PO SCH (09:24)
[2018-07-01] MEDS: Multivitamin w/ Minerals Tab PO SCH (09:24)
[2018-07-01] MEDS: NYSTATIN 100000 UNITS/GM POWD TP SCH (09:27)
[2018-07-01] MEDS: POLYETHYLENE GLYCOL 3350 17 GM PACK PO PRN (16:08)
--- NOTE | 2018-07-01 18:42 | Internal Medicine Prog Note ---
Internal Medicine Subjective - Subjective Service Date: 07/01/18 Patient is:: awake, verbal, agitated (admitted for aggresive behaviour, 5150 hold), confused, other (Angry an upset, has severe mood swings, can be danger to self and others.) Per staff patient has:: confused, other (Refuses to take Depakote has agreed to take Abilify.) Internal Medicine Objective - Results Result Diagrams: 06/24/18 17:03 06/24/18 17:03 Recent Labs: Laboratory Last Values WBC 7.1 Th/cmm (4.8-10.8) 06/24/18 17:03 RBC 4.48 Mil/cmm (3.80-5.20) 06/24/18 17:03 Hgb 12.5 gm/dL (12-16) 06/24/18 17:03 Hct 37.3 % (41.0-60) L 06/24/18 17:03 MCV 83.2 fl (81-100) 06/24/18 17:03 MCH 27.8 pg (27.0-31.0) 06/24/18 17:03 MCHC Differential 33.4 pg (28.0-36.0) 06/24/18 17:03 RDW 13.6 % (11.5-20.0) 06/24/18 17:03 Plt Count 266 Th/cmm (150-400) 06/24/18 17:03 MPV 6.3 fl 06/24/18 17:03 Neutrophils % 73.6 % (40.0-80.0) 06/24/18 17:03 Lymphocytes % 18.5 % (20.0-50.0) L 06/24/18 17:03 Monocytes % 6.4 % (2.0-10.0) 06/24/18 17:03 Eosinophils % 1.1 % (0.0-5.0) 06/24/18 17:03 Basophils % 0.4 % (0.0-2.0) 06/24/18 17:03 Sodium 134 mEq/L (136-145) L 06/24/18 17:03 Potassium 4.3 mEq/L (3.5-5.1) 06/24/18 17:03 Chloride 102 mEq/L (98-107) 06/24/18 17:03 Carbon Dioxide 21.4 mEq/L (21.0-31.0) 06/24/18 17:03 Anion Gap 14.9 (7.0-16.0) 06/24/18 17:03 BUN 15 mg/dL (7-25) 06/24/18 17:03 Creatinine 1.0 mg/dL (0.6-1.2) 06/24/18 17:03 Est GFR ( Amer) > 60.0 ml/min (>90) 06/24/18 17:03 Est GFR (Non-Af Amer) 59.0 ml/min 06/24/18 17:03 BUN/Creatinine Ratio 15.0 06/24/18 17:03 Glucose mg/dL (70-105) 06/24/18 17:03 POC Glucose 350 MG/DL (70 - 105) H 06/27/18 16:55 Calcium 8.9 mg/dL (8.6-10.3) 06/24/18 17:03 Total Bilirubin 0.3 mg/dL (0.3-1.0) 06/24/18 17:03 AST 16 U/L (13-39) 06/24/18 17:03 ALT 15 U/L (7-52) 06/24/18 17:03 Alkaline Phosphatase 80 U/L (34-104) 06/24/18 17:03 Total Protein 5.8 gm/dL (6.0-8.3) L 06/24/18 17:03 Albumin 3.4 gm/dL (3.7-5.3) L 06/24/18 17:03 Globulin 2.4 gm/dL 06/24/18 17:03 Albumin/Globulin Ratio 1.4 (1.0-1.8) 06/24/18 17:03 Triglycerides 397 mg/dL (<150) H 06/24/18 17:03 Cholesterol 159 mg/dL (<200) 06/24/18 17:03 LDL Cholesterol Direct 91 mg/dL (75-193) 06/24/18 17:03 HDL Cholesterol 29 mg/dL (23-92) 06/24/18 17:03 TSH 3.17 uIU/ml (0.34-5.60) 06/24/18 17:03 Urine Source CATH 06/24/18 16:30 Urine Color YELLOW 06/24/18 16:30 Urine Clarity CLOUDY (CLEAR) H 06/24/18 16:30 Urine pH 6.0 (4.6 - 8.0) 06/24/18 16:30 Ur Specific [place] 1.015 (1.005-1.030) 06/24/18 16:30 Urine Protein NEGATIVE mg/dL (NEGATIVE) 06/24/18 16:30 Urine Glucose (UA) >=1000 mg/dL (NEGATIVE) H 06/24/18 16:30 Urine Ketones NEGATIVE mg/dL (NEGATIVE) 06/24/18 16:30 Urine Blood SMALL (NEGATIVE) H 06/24/18 16:30 Urine Nitrate POSITIVE (NEGATIVE) H 06/24/18 16:30 Urine Bilirubin NEGATIVE (NEGATIVE) 06/24/18 16:30 Urine Urobilinogen 0.2 E.U./dL (0.2 - 1.0) 06/24/18 16:30 Ur Leukocyte Esterase SMALL (NEGATIVE) H 06/24/18 16:30 Urine RBC 2-5 /hpf (0-5) 06/24/18 16:30 Urine WBC 50-100 /hpf (0-5) H 06/24/18 16:30 Ur Epithelial Cells FEW /lpf (FEW) 06/24/18 16:30 Urine Bacteria FEW /hpf (NONE SEEN) 06/24/18 16:30 Valproic Acid 11.8 ug/mL (50.0-100.0) L 06/25/18 08:18 RPR NONREACTIVE (NONREACTIVE) 06/24/18 17:03 - Physical Exam Vitals and I&O: Vital Signs Temp 98.4 F 07/01/18 14:00 Pulse 73 07/01/18 16:09 Resp 20 07/01/18 14:00 BP 132/68 07/01/18 14:00 Pulse Ox 97 07/01/18 14:00 Intake & Output 06/30/18 07/01/18 07/01/18 18:59 06:59 18:59 Intake Total 4766 376 1300 Balance 7263 661 2525 Intake: Oral 0495 418 4276 Other: # Voids 3 4 # Bowel Movements 1 1 1 Active Medications: Current Medications Acetaminophen (Tylenol) 650 mg PO Q4HR PRN PRN Reason: Mild Pain / Temp above 100 Stop: 03/25/19 19:31 Acetaminophen/Hydrocodone Bitart ([place] 10 Mg/325 Mg) 1 tab PO Q4H PRN PRN Reason: Pain (Severe) Last Admin: 06/30/18 20:32 Dose: 1 tab Acetaminophen/Hydrocodone Bitart ([place] 5mg/325mg) 1 tab PO Q4H PRN PRN Reason: Pain (Moderate) Stop: 08/23/18 19:31 Last Admin: 07/01/18 16:17 Dose: 1 tab Amiodarone HCl (Cordarone) 200 mg PO BID [facility] Stop: 08/24/18 08:59 Last Admin: 07/01/18 16:09 Dose: 200 mg Aripiprazole (Abilify) 10 mg PO HS [facility]; Protocol Stop: 08/24/18 20:59 Last Admin: 06/30/18 20:32 Dose: 10 mg Aspirin (Aspirin Chewable) 81 mg PO DAILY [facility] Stop: 08/24/18 08:59 Last Admin: 07/01/18 09:23 Dose: 81 mg Bisacodyl (Dulcolax 10 Mg Supp) 10 mg RC DAILY PRN PRN Reason: Constipation Stop: 08/23/18 19:31 Digoxin (Lanoxin) 0.25 mg PO DAILY [facility] Stop: 08/24/18 08:59 Last Admin: 07/01/18 09:23 Dose: 0.25 mg Escitalopram Oxalate 10 mg/ (Escitalopram Oxalate 5 mg) 15 mg PO DAILY [facility] Stop: 08/26/18 13:59 Last Admin: 07/01/18 09:24 Dose: 15 mg Insulin Aspart (Novolog Insulin Sliding Scale) 0 units SUBQ ACHS [facility]; Protocol Stop: 08/23/18 22:15 Last Admin: 07/01/18 17:10 Dose: 6 units Metformin HCl (Glucophage) 500 mg PO BIDWM [facility] Stop: 08/28/18 17:59 Last Admin: 07/01/18 17:33 Dose: 500 mg Nitrofurantoin Macrocrystals (Macrobid) 100 mg PO BID [facility]; Protocol Stop: 08/26/18 16:59 Last Admin: 07/01/18 16:10 Dose: 100 mg Nystatin (Nystop) 0 units TP DAILY [facility] Stop: 08/24/18 08:59 Last Admin: 07/01/18 09:27 Dose: 1,000 units Oxybutynin Chloride (Ditropan) 5 mg PO BID [facility] Stop: 08/24/18 08:59 Last Admin: 07/01/18 16:10 Dose: 5 mg Polyethylene Glycol (Miralax) 17 gm PO DAILY PRN PRN Reason: Constipation Stop: 08/23/18 19:31 Last Admin: 07/01/18 16:08 Dose: 17 gm Promethazine HCl/Codeine (Phenergan W/Cod Susp) 10 ml PO TID [facility] Stop: 07/02/18 13:59 Last Admin: 07/01/18 15:00 Dose: Not Given Quetiapine Fumarate (Seroquel) 100 mg PO HS [facility]; Protocol Stop: 08/30/18 20:59 Rivaroxaban (Xarelto) 20 mg PO DAILY [facility] Stop: 08/26/18 13:29 Last Admin: 07/01/18 09:25 Dose: 20 mg Sitagliptin Phosphate (Januvia) 100 mg PO DAILY [facility] Stop: 08/24/18 08:59 Last Admin: 07/01/18 09:25 Dose: 100 mg Zolpidem Tartrate (Ambien) 10 mg PO HS PRN PRN Reason: Insomnia Stop: 08/23/18 19:31 Last Admin: 06/30/18 20:32 Dose: 10 mg General: demented, other (inpulsive, unpredictable ) HEENT: NC/AT Neck: Supple Lungs: CTAB Cardiovascular: RRR, Normal S1, Normal S2 Abdomen: soft, non-tender Extremities: clear Neurological: no change Internal Medicine Assmt/Plan - Assessment Assessment: Mood swings aggresive behaviour 5150 hold htn dm bipolar disease gerd h/o fib insomnia constipation depression - Plan Plan: METFORMIN ADDED MONITOR S/SX OF HYPO/HYPERGLYCEMIA CPM Nutritional Asmnt/Malnutr-PDOC - Dietary Evaluation Malnutrition Findings (Please click <Entered> for more info): Nutritional Asmnt/Malnutrition Start: 06/25/18 14: 31 Text: Status: Complete Freq: Protocol: Document 06/25/18 14:31 [email or web address] (Rec: 06/25/18 14:40 [email or web address]) Nutritional Asmnt/Malnutrition Patient General Information Nutritional Screening High Risk Consult Diagnosis psychosis nos Pertinent Medical Hx/Surgical Hx HTN, DM, arthritis of the knee , bipolar disorder, GERD, Afib , depression, anxiety, insomnia, constipation. depression, bipolar Subjective Information Consult recieved for diabetes. POC 400 on 06/24 noted. Pt was seen eating lunch in bed at time of visit. Lunch was seen eaten about 50%. Pt is alert but confused, unable to give DM education. Food preferences taken. Current Diet Order/ Nutrition Support low sodium 2gm, diabetic Pertinent Medications novolog, miralax, januvia, ambien Pertinent Labs 06/24 Na 134, alb 3.4, Triglycerides 397, POC 400 Nutritional Hx/Data Height 5 ft 6 in Height (Calculated Centimeters) 167.6 Current Weight (lbs) 305 lb Weight (Calculated Kilograms) 138.3 Weight (Calculated Grams) 094993.7 [place] Body Weight 130 Body Mass Index (BMI) 49.2 Weight Status Morbidly Obese GI Symptoms GI Symptoms None Last BM not indicated Difficult in: None Food Allergies No Skin Integrity/Comment: mitul Dubose Current %PO Fair (50-74%) Estimated Nutritional Goals BEE in Kcals: Using Current wt Adj wt of IBW Calories/Kcals/Kg 25-30 Kcals Calculated Protein: Adj wt of IBW Protein g/k Protein Calculated 78 Fluid: ml (1ml/kcal) Nutritional Problem 1. Problem Problem altered nutrition related labs Etiology hyperglycemia Signs/Symptoms: POC 400 Malnutrition Alert Is there a minimum of two criteria No selected? Query Text:Check all the applicable criteria. A minimum of two criteria are recommended for diagnosis of either severe or non-severe malnutrition. Malnutrition Related to Morbid Obesity Malnutrition related to morbid obesity No Intervention/Recommendation Comments 1. Continue with low sodium 2gm, CCHO diet as ordered. 2. MD to modify insulin regmen for optimal glycemic control 3. Monitor PO intake, wt, labs and skin integrity 4. F/U as moderate risk in 3-5 days Expected Outcomes/Goals Expected Outcomes/Goals 1. PO intake to meet at least 75% of nutritional needs. 2. Wt stability, skin to remain intact, labs to approach WNL. Reviewed by Kristi Zurita RD
--- NOTE | 2018-07-02 00:50 | Progress Notes ---
DATE: 07/01/2018 SUBJECTIVE: Chart reviewed and the patient interviewed. Also, discussed the patient's condition with the staff and reviewed records and labs. The patient still has episodes of screaming and is still easily agitated and in angry mood, but at the same time during my interview, she was calm and cooperative. She is still withdrawn. She seems to be more depressed. The patient also still has mood swings and still at times, easily agitated. Otherwise, the patient is compliant with taking her medications, but the patient said that she does not like Abilify and asking for other medications. ASSESSMENT: The patient is still agitated and is still depressed. TREATMENT PLAN: Continue to monitor her behavior and her condition closely. Also, the patient said that she was doing better on Seroquel and plan is to discontinue Abilify and start Seroquel 100 mg at bedtime and will continue to follow up closely. [facility]# [id number]
[2018-07-02] MEDS: Hydrocodone/APAP 10 mg/325 mg Tab PO PRN ×4 (05:16→20:57)
[2018-07-02] MEDS: INSULIN ASPART SLIDING SCALE 100 UNITS/ML UNIT SUBQ SCH ×4 (06:52→21:00)
[2018-07-02] MEDS ORDERED: Codeine/Promethazine Susp 5 mL UDC PO PRN (07:00)
[2018-07-02] MEDS ORDERED: Albuterol Nebulizer 2.5mg/3mL HHN SCH (07:15)
[2018-07-02] MEDS: Escitalopram Oxalate 10 MG, Escitalopram Oxalate 5 MG PO SCH (09:00)
[2018-07-02] MEDS: Multivitamin w/ Minerals Tab PO SCH (09:00)
[2018-07-02] MEDS: NYSTATIN 100000 UNITS/GM POWD TP SCH (09:00)
[2018-07-02] MEDS: Aspirin 81mg Chewable Tab PO SCH (09:00)
[2018-07-02] MEDS: Albuterol Nebulizer 2.5mg/3mL HHN SCH ×2 (14:18→19:10)
[2018-07-03] MEDS: Albuterol Nebulizer 2.5mg/3mL HHN SCH ×4 (00:54→18:57)
[2018-07-03] MEDS: INSULIN ASPART SLIDING SCALE 100 UNITS/ML UNIT SUBQ SCH ×2 (06:44→20:50)
[2018-07-03] MEDS: Aspirin 81mg Chewable Tab PO SCH (09:03)
[2018-07-03] MEDS: Escitalopram Oxalate 10 MG, Escitalopram Oxalate 5 MG PO SCH (09:05)
[2018-07-03] MEDS: Multivitamin w/ Minerals Tab PO SCH (09:07)
[2018-07-03] MEDS: NYSTATIN 100000 UNITS/GM POWD TP SCH (09:10)
--- NOTE | 2018-07-03 09:55 | Progress Notes ---
DATE: 07/02/2018 SUBJECTIVE: Chart reviewed and the patient interviewed. Also discussed the patient's condition with the staff and reviewed records and labs. The patient is still demanding and she still has episodes of anger and irritability. The patient also is still restless at the time. She also is still refusing Abilify. On the other hand, the patient did take Seroquel and she stepped over the last night. ASSESSMENT: The patient is still depressed and is still demanding. TREATMENT PLAN: We will continue monitoring her behavior and her condition closely. Also, we will discontinue Abilify and continue Seroquel and Lexapro. Also, working with showcase maker in regard to discharge plans and placement issue. JOB# [id number]
--- NOTE | 2018-07-03 11:06 | Internal Medicine Prog Note ---
Internal Medicine Subjective - Subjective Service Date: 07/03/18 Patient is:: awake, verbal, agitated (admitted for aggresive behaviour, 5150 hold), confused, other (Angry an upset, has severe mood swings, can be danger to self and others.) Per staff patient has:: confused, other (Refuses to take Depakote has agreed to take Abilify.) Internal Medicine Objective - Results Result Diagrams: 06/24/18 17:03 06/24/18 17:03 Recent Labs: Laboratory Last Values WBC 7.1 Th/cmm (4.8-10.8) 06/24/18 17:03 RBC 4.48 Mil/cmm (3.80-5.20) 06/24/18 17:03 Hgb 12.5 gm/dL (12-16) 06/24/18 17:03 Hct 37.3 % (41.0-60) L 06/24/18 17:03 MCV 83.2 fl (81-100) 06/24/18 17:03 MCH 27.8 pg (27.0-31.0) 06/24/18 17:03 MCHC Differential 33.4 pg (28.0-36.0) 06/24/18 17:03 RDW 13.6 % (11.5-20.0) 06/24/18 17:03 Plt Count 266 Th/cmm (150-400) 06/24/18 17:03 MPV 6.3 fl 06/24/18 17:03 Neutrophils % 73.6 % (40.0-80.0) 06/24/18 17:03 Lymphocytes % 18.5 % (20.0-50.0) L 06/24/18 17:03 Monocytes % 6.4 % (2.0-10.0) 06/24/18 17:03 Eosinophils % 1.1 % (0.0-5.0) 06/24/18 17:03 Basophils % 0.4 % (0.0-2.0) 06/24/18 17:03 Sodium 134 mEq/L (136-145) L 06/24/18 17:03 Potassium 4.3 mEq/L (3.5-5.1) 06/24/18 17:03 Chloride 102 mEq/L (98-107) 06/24/18 17:03 Carbon Dioxide 21.4 mEq/L (21.0-31.0) 06/24/18 17:03 Anion Gap 14.9 (7.0-16.0) 06/24/18 17:03 BUN 15 mg/dL (7-25) 06/24/18 17:03 Creatinine 1.0 mg/dL (0.6-1.2) 06/24/18 17:03 Est GFR ( Amer) > 60.0 ml/min (>90) 06/24/18 17:03 Est GFR (Non-Af Amer) 59.0 ml/min 06/24/18 17:03 BUN/Creatinine Ratio 15.0 06/24/18 17:03 Glucose mg/dL (70-105) 06/24/18 17:03 POC Glucose 350 MG/DL (70 - 105) H 06/27/18 16:55 Calcium 8.9 mg/dL (8.6-10.3) 06/24/18 17:03 Total Bilirubin 0.3 mg/dL (0.3-1.0) 06/24/18 17:03 AST 16 U/L (13-39) 06/24/18 17:03 ALT 15 U/L (7-52) 06/24/18 17:03 Alkaline Phosphatase 80 U/L (34-104) 06/24/18 17:03 Total Protein 5.8 gm/dL (6.0-8.3) L 06/24/18 17:03 Albumin 3.4 gm/dL (3.7-5.3) L 06/24/18 17:03 Globulin 2.4 gm/dL 06/24/18 17:03 Albumin/Globulin Ratio 1.4 (1.0-1.8) 06/24/18 17:03 Triglycerides 397 mg/dL (<150) H 06/24/18 17:03 Cholesterol 159 mg/dL (<200) 06/24/18 17:03 LDL Cholesterol Direct 91 mg/dL (75-193) 06/24/18 17:03 HDL Cholesterol 29 mg/dL (23-92) 06/24/18 17:03 TSH 3.17 uIU/ml (0.34-5.60) 06/24/18 17:03 Urine Source CATH 06/24/18 16:30 Urine Color YELLOW 06/24/18 16:30 Urine Clarity CLOUDY (CLEAR) H 06/24/18 16:30 Urine pH 6.0 (4.6 - 8.0) 06/24/18 16:30 Ur Specific [place] 1.015 (1.005-1.030) 06/24/18 16:30 Urine Protein NEGATIVE mg/dL (NEGATIVE) 06/24/18 16:30 Urine Glucose (UA) >=1000 mg/dL (NEGATIVE) H 06/24/18 16:30 Urine Ketones NEGATIVE mg/dL (NEGATIVE) 06/24/18 16:30 Urine Blood SMALL (NEGATIVE) H 06/24/18 16:30 Urine Nitrate POSITIVE (NEGATIVE) H 06/24/18 16:30 Urine Bilirubin NEGATIVE (NEGATIVE) 06/24/18 16:30 Urine Urobilinogen 0.2 E.U./dL (0.2 - 1.0) 06/24/18 16:30 Ur Leukocyte Esterase SMALL (NEGATIVE) H 06/24/18 16:30 Urine RBC 2-5 /hpf (0-5) 06/24/18 16:30 Urine WBC 50-100 /hpf (0-5) H 06/24/18 16:30 Ur Epithelial Cells FEW /lpf (FEW) 06/24/18 16:30 Urine Bacteria FEW /hpf (NONE SEEN) 06/24/18 16:30 Valproic Acid 11.8 ug/mL (50.0-100.0) L 06/25/18 08:18 RPR NONREACTIVE (NONREACTIVE) 06/24/18 17:03 - Physical Exam Vitals and I&O: Vital Signs Temp 97.4 F 07/03/18 06:17 Pulse 75 07/03/18 09:09 Resp 18 07/03/18 07:19 BP 128/82 07/03/18 09:09 Pulse Ox 92 07/03/18 07:19 Intake & Output 07/02/18 07/03/18 07/03/18 18:59 06:59 18:59 Intake Total 1500 240 Balance 1500 240 Intake: Oral 1500 240 Other: # Voids 3 3 # Bowel Movements 0 1 Active Medications: Current Medications Acetaminophen (Tylenol) 650 mg PO Q4HR PRN PRN Reason: Mild Pain / Temp above 100 Stop: 08/23/18 19:31 Acetaminophen/Hydrocodone Bitart ([place] 10 Mg/325 Mg) 1 tab PO Q4H PRN PRN Reason: Pain (Severe) Last Admin: 07/02/18 20:57 Dose: 1 tab Acetaminophen/Hydrocodone Bitart ([place] 5mg/325mg) 1 tab PO Q4H PRN PRN Reason: Pain (Moderate) Stop: 08/23/18 19:31 Last Admin: 07/01/18 20:46 Dose: 1 tab Albuterol Sulfate (Albuterol 2.5mg/3ml Neb Ud) 2.5 mg HHN Q6HRT [facility] Stop: 08/31/18 07:14 Last Admin: 07/03/18 07:19 Dose: 2.5 mg Amiodarone HCl (Cordarone) 200 mg PO BID [facility] Stop: 08/24/18 08:59 Last Admin: 07/03/18 09:01 Dose: 200 mg Amlodipine Besylate (Norvasc) 10 mg PO DAILY [facility] Stop: 08/31/18 08:59 Last Admin: 07/03/18 09:09 Dose: 10 mg Aspirin (Aspirin Chewable) 81 mg PO DAILY [facility] Stop: 08/24/18 08:59 Last Admin: 07/03/18 09:03 Dose: 81 mg Bisacodyl (Dulcolax 10 Mg Supp) 10 mg RC DAILY PRN PRN Reason: Constipation Stop: 08/23/18 19:31 Digoxin (Lanoxin) 0.25 mg PO DAILY [facility] Stop: 08/24/18 08:59 Last Admin: 07/03/18 09:03 Dose: 0.25 mg Escitalopram Oxalate 10 mg/ (Escitalopram Oxalate 5 mg) 15 mg PO DAILY [facility] Stop: 08/26/18 13:59 Last Admin: 07/03/18 09:05 Dose: 10 mg Insulin Aspart (Novolog Insulin Sliding Scale) 0 units SUBQ ACHS [facility]; Protocol Stop: 08/23/18 22:15 Last Admin: 07/03/18 06:44 Dose: 4 units Metformin HCl (Glucophage) 500 mg PO BIDWM [facility] Stop: 08/28/18 17:59 Last Admin: 07/03/18 08:59 Dose: 500 mg Nitrofurantoin Macrocrystals (Macrobid) 100 mg PO BID [facility]; Protocol Stop: 08/26/18 16:59 Last Admin: 07/03/18 09:03 Dose: 100 mg Nystatin (Nystop) 0 units TP DAILY [facility] Stop: 08/24/18 08:59 Last Admin: 07/03/18 09:10 Dose: 100,000 units Oxybutynin Chloride (Ditropan) 5 mg PO BID [facility] Stop: 08/24/18 08:59 Last Admin: 07/03/18 09:07 Dose: 5 mg Polyethylene Glycol (Miralax) 17 gm PO DAILY PRN PRN Reason: Constipation Stop: 08/23/18 19:31 Last Admin: 07/01/18 16:08 Dose: 17 gm Promethazine HCl/Codeine (Phenergan W/Cod Susp) 10 ml PO TID PRN PRN Reason: Cough Stop: 07/12/18 06:57 Quetiapine Fumarate (Seroquel) 150 mg PO HS [facility]; Protocol Stop: 09/01/18 20:59 Rivaroxaban (Xarelto) 20 mg PO DAILY [facility] Stop: 08/26/18 13:29 Last Admin: 07/03/18 09:05 Dose: 20 mg Sitagliptin Phosphate (Januvia) 100 mg PO DAILY [facility] Stop: 08/24/18 08:59 Last Admin: 07/03/18 09:04 Dose: 100 mg Zolpidem Tartrate (Ambien) 10 mg PO HS PRN PRN Reason: Insomnia Stop: 08/23/18 19:31 Last Admin: 07/02/18 20:57 Dose: 10 mg General: demented, other (inpulsive, unpredictable ) HEENT: NC/AT Neck: Supple Lungs: CTAB Cardiovascular: RRR, Normal S1, Normal S2 Abdomen: soft, non-tender Extremities: clear Neurological: no change Internal Medicine Assmt/Plan - Assessment Assessment: Mood swings aggresive behaviour 5150 hold htn dm bipolar disease gerd h/o fib insomnia constipation depression - Plan Plan: METFORMIN ADDED MONITOR S/SX OF HYPO/HYPERGLYCEMIA CPM Nutritional Asmnt/Malnutr-PDOC - Dietary Evaluation Malnutrition Findings (Please click <Entered> for more info): Nutritional Asmnt/Malnutrition Start: 06/25/18 14: 31 Text: Status: Complete Freq: Protocol: Document 06/25/18 14:31 [email or web address] (Rec: 06/25/18 14:40 [email or web address]) Nutritional Asmnt/Malnutrition Patient General Information Nutritional Screening High Risk Consult Diagnosis psychosis nos Pertinent Medical Hx/Surgical Hx HTN, DM, arthritis of the knee , bipolar disorder, GERD, Afib , depression, anxiety, insomnia, constipation. depression, bipolar Subjective Information Consult recieved for diabetes. POC 400 on 06/24 noted. Pt was seen eating lunch in bed at time of visit. Lunch was seen eaten about 50%. Pt is alert but confused, unable to give DM education. Food preferences taken. Current Diet Order/ Nutrition Support low sodium 2gm, diabetic Pertinent Medications novolog, miralax, januvia, ambien Pertinent Labs 06/24 Na 134, alb 3.4, Triglycerides 397, POC 400 Nutritional Hx/Data Height 5 ft 6 in Height (Calculated Centimeters) 167.6 Current Weight (lbs) 305 lb Weight (Calculated Kilograms) 138.3 Weight (Calculated Grams) 910476.7 [place] Body Weight 130 Body Mass Index (BMI) 49.2 Weight Status Morbidly Obese GI Symptoms GI Symptoms None Last BM not indicated Difficult in: None Food Allergies No Skin Integrity/Comment: mitul Dubose Current %PO Fair (50-74%) Estimated Nutritional Goals BEE in Kcals: Using Current wt Adj wt of IBW Calories/Kcals/Kg 25-30 Kcals Calculated Protein: Adj wt of IBW Protein g/k Protein Calculated 78 Fluid: ml (1ml/kcal) Nutritional Problem 1. Problem Problem altered nutrition related labs Etiology hyperglycemia Signs/Symptoms: POC 400 Malnutrition Alert Is there a minimum of two criteria No selected? Query Text:Check all the applicable criteria. A minimum of two criteria are recommended for diagnosis of either severe or non-severe malnutrition. Malnutrition Related to Morbid Obesity Malnutrition related to morbid obesity No Intervention/Recommendation Comments 1. Continue with low sodium 2gm, CCHO diet as ordered. 2. MD to modify insulin regmen for optimal glycemic control 3. Monitor PO intake, wt, labs and skin integrity 4. F/U as moderate risk in 3-5 days Expected Outcomes/Goals Expected Outcomes/Goals 1. PO intake to meet at least 75% of nutritional needs. 2. Wt stability, skin to remain intact, labs to approach WNL. Reviewed by Kristi Zurita RD
[2018-07-03] MEDS: Hydrocodone/APAP 10 mg/325 mg Tab PO PRN (17:27)
--- NOTE | 2018-07-03 23:19 | Progress Notes ---
DATE: 07/03/2018 SUBJECTIVE: Chart reviewed and the patient interviewed. Also, discussed the patient's condition with the staff and reviewed records and labs. The patient is compliant with her medications and the patient is cooperative with treatment. The patient also has less mood swings, but at times she is still impulsive and unpredictable. The patient also is still at times depressed and withdrawn. Also, sleep is interrupted. Otherwise, the patient is compliant with taking her medications with no side effects. ASSESSMENT: The patient is still depressed and needs close monitoring. TREATMENT PLAN: We will continue Lexapro 15 mg every day and we will increase Seroquel to 150 mg every day and continue to follow up. JOB# [id number]
[2018-07-04] MEDS: Albuterol Nebulizer 2.5mg/3mL HHN SCH ×4 (00:05→19:08)
[2018-07-04] MEDS: Hydrocodone/APAP 10 mg/325 mg Tab PO PRN ×4 (02:32→13:45)
[2018-07-04] MEDS: INSULIN ASPART SLIDING SCALE 100 UNITS/ML UNIT SUBQ SCH ×4 (06:36→20:26)
[2018-07-04] MEDS: Escitalopram Oxalate 10 MG, Escitalopram Oxalate 5 MG PO SCH (08:38)
[2018-07-04] MEDS: Multivitamin w/ Minerals Tab PO SCH (08:40)
[2018-07-04] MEDS: Aspirin 81mg Chewable Tab PO SCH (08:40)
--- NOTE | 2018-07-04 12:48 | Internal Medicine Prog Note ---
Internal Medicine Subjective - Subjective Service Date: 07/04/18 Patient is:: awake, verbal, agitated (admitted for aggresive behaviour, 5150 hold), confused, other (Angry an upset, has severe mood swings, can be danger to self and others.) Per staff patient has:: confused, other (Refuses to take Depakote has agreed to take Abilify.) Internal Medicine Objective - Results Result Diagrams: 06/24/18 17:03 06/24/18 17:03 Recent Labs: Laboratory Last Values WBC 7.1 Th/cmm (4.8-10.8) 06/24/18 17:03 RBC 4.48 Mil/cmm (3.80-5.20) 06/24/18 17:03 Hgb 12.5 gm/dL (12-16) 06/24/18 17:03 Hct 37.3 % (41.0-60) L 06/24/18 17:03 MCV 83.2 fl (81-100) 06/24/18 17:03 MCH 27.8 pg (27.0-31.0) 06/24/18 17:03 MCHC Differential 33.4 pg (28.0-36.0) 06/24/18 17:03 RDW 13.6 % (11.5-20.0) 06/24/18 17:03 Plt Count 266 Th/cmm (150-400) 06/24/18 17:03 MPV 6.3 fl 06/24/18 17:03 Neutrophils % 73.6 % (40.0-80.0) 06/24/18 17:03 Lymphocytes % 18.5 % (20.0-50.0) L 06/24/18 17:03 Monocytes % 6.4 % (2.0-10.0) 06/24/18 17:03 Eosinophils % 1.1 % (0.0-5.0) 06/24/18 17:03 Basophils % 0.4 % (0.0-2.0) 06/24/18 17:03 Sodium 134 mEq/L (136-145) L 06/24/18 17:03 Potassium 4.3 mEq/L (3.5-5.1) 06/24/18 17:03 Chloride 102 mEq/L (98-107) 06/24/18 17:03 Carbon Dioxide 21.4 mEq/L (21.0-31.0) 06/24/18 17:03 Anion Gap 14.9 (7.0-16.0) 06/24/18 17:03 BUN 15 mg/dL (7-25) 06/24/18 17:03 Creatinine 1.0 mg/dL (0.6-1.2) 06/24/18 17:03 Est GFR ( Amer) > 60.0 ml/min (>90) 06/24/18 17:03 Est GFR (Non-Af Amer) 59.0 ml/min 06/24/18 17:03 BUN/Creatinine Ratio 15.0 06/24/18 17:03 Glucose mg/dL (70-105) 06/24/18 17:03 POC Glucose 350 MG/DL (70 - 105) H 06/27/18 16:55 Calcium 8.9 mg/dL (8.6-10.3) 06/24/18 17:03 Total Bilirubin 0.3 mg/dL (0.3-1.0) 06/24/18 17:03 AST 16 U/L (13-39) 06/24/18 17:03 ALT 15 U/L (7-52) 06/24/18 17:03 Alkaline Phosphatase 80 U/L (34-104) 06/24/18 17:03 Total Protein 5.8 gm/dL (6.0-8.3) L 06/24/18 17:03 Albumin 3.4 gm/dL (3.7-5.3) L 06/24/18 17:03 Globulin 2.4 gm/dL 06/24/18 17:03 Albumin/Globulin Ratio 1.4 (1.0-1.8) 06/24/18 17:03 Triglycerides 397 mg/dL (<150) H 06/24/18 17:03 Cholesterol 159 mg/dL (<200) 06/24/18 17:03 LDL Cholesterol Direct 91 mg/dL (75-193) 06/24/18 17:03 HDL Cholesterol 29 mg/dL (23-92) 06/24/18 17:03 TSH 3.17 uIU/ml (0.34-5.60) 06/24/18 17:03 Urine Source CATH 06/24/18 16:30 Urine Color YELLOW 06/24/18 16:30 Urine Clarity CLOUDY (CLEAR) H 06/24/18 16:30 Urine pH 6.0 (4.6 - 8.0) 06/24/18 16:30 Ur Specific [place] 1.015 (1.005-1.030) 06/24/18 16:30 Urine Protein NEGATIVE mg/dL (NEGATIVE) 06/24/18 16:30 Urine Glucose (UA) >=1000 mg/dL (NEGATIVE) H 06/24/18 16:30 Urine Ketones NEGATIVE mg/dL (NEGATIVE) 06/24/18 16:30 Urine Blood SMALL (NEGATIVE) H 06/24/18 16:30 Urine Nitrate POSITIVE (NEGATIVE) H 06/24/18 16:30 Urine Bilirubin NEGATIVE (NEGATIVE) 06/24/18 16:30 Urine Urobilinogen 0.2 E.U./dL (0.2 - 1.0) 06/24/18 16:30 Ur Leukocyte Esterase SMALL (NEGATIVE) H 06/24/18 16:30 Urine RBC 2-5 /hpf (0-5) 06/24/18 16:30 Urine WBC 50-100 /hpf (0-5) H 06/24/18 16:30 Ur Epithelial Cells FEW /lpf (FEW) 06/24/18 16:30 Urine Bacteria FEW /hpf (NONE SEEN) 06/24/18 16:30 Valproic Acid 11.8 ug/mL (50.0-100.0) L 06/25/18 08:18 RPR NONREACTIVE (NONREACTIVE) 06/24/18 17:03 - Physical Exam Vitals and I&O: Vital Signs Temp 0 F 07/04/18 05:54 Pulse 73 07/04/18 08:51 Resp 18 07/04/18 08:00 BP 117/54 07/04/18 08:51 Pulse Ox 91 07/04/18 06:30 Intake & Output 07/03/18 07/04/18 07/04/18 18:59 06:59 18:59 Intake Total 120 Balance 120 Intake: Oral 120 Other: # Voids 3 # Bowel Movements 0 Active Medications: Current Medications Acetaminophen (Tylenol) 650 mg PO Q4HR PRN PRN Reason: Mild Pain / Temp above 100 Stop: 08/23/18 19:31 Acetaminophen/Hydrocodone Bitart ([place] 10 Mg/325 Mg) 1 tab PO Q4H PRN PRN Reason: Pain (Severe) Last Admin: 07/04/18 06:35 Dose: 1 tab Acetaminophen/Hydrocodone Bitart ([place] 5mg/325mg) 1 tab PO Q4H PRN PRN Reason: Pain (Moderate) Stop: 08/23/18 19:31 Last Admin: 07/01/18 20:46 Dose: 1 tab Albuterol Sulfate (Albuterol 2.5mg/3ml Neb Ud) 2.5 mg HHN Q6HRT [facility] Stop: 08/31/18 07:14 Last Admin: 07/04/18 06:37 Dose: 2.5 mg Amiodarone HCl (Cordarone) 200 mg PO BID [facility] Stop: 08/24/18 08:59 Last Admin: 07/04/18 08:51 Dose: 200 mg Amlodipine Besylate (Norvasc) 10 mg PO DAILY [facility] Stop: 08/31/18 08:59 Last Admin: 07/04/18 08:51 Dose: 10 mg Aspirin (Aspirin Chewable) 81 mg PO DAILY [facility] Stop: 08/24/18 08:59 Last Admin: 07/04/18 08:40 Dose: 81 mg Bisacodyl (Dulcolax 10 Mg Supp) 10 mg RC DAILY PRN PRN Reason: Constipation Stop: 08/23/18 19:31 Digoxin (Lanoxin) 0.25 mg PO DAILY [facility] Stop: 08/24/18 08:59 Last Admin: 07/04/18 08:51 Dose: 0.25 mg Escitalopram Oxalate 10 mg/ (Escitalopram Oxalate 5 mg) 15 mg PO DAILY [facility] Stop: 08/26/18 13:59 Last Admin: 07/04/18 08:38 Dose: 15 mg Insulin Aspart (Novolog Insulin Sliding Scale) 0 units SUBQ ACHS [facility]; Protocol Stop: 08/23/18 22:15 Last Admin: 07/04/18 12:06 Dose: 10 units Metformin HCl (Glucophage) 500 mg PO BIDWM [facility] Stop: 08/28/18 17:59 Last Admin: 07/04/18 08:39 Dose: 500 mg Nitrofurantoin Macrocrystals (Macrobid) 100 mg PO BID [facility]; Protocol Stop: 08/26/18 16:59 Last Admin: 07/04/18 08:38 Dose: 100 mg Nystatin (Nystop) 0 units TP DAILY [facility] Stop: 08/24/18 08:59 Last Admin: 07/03/18 09:10 Dose: 100,000 units Oxybutynin Chloride (Ditropan) 5 mg PO BID [facility] Stop: 08/24/18 08:59 Last Admin: 07/04/18 08:39 Dose: 5 mg Polyethylene Glycol (Miralax) 17 gm PO DAILY PRN PRN Reason: Constipation Stop: 08/23/18 19:31 Last Admin: 07/01/18 16:08 Dose: 17 gm Promethazine HCl/Codeine (Phenergan W/Cod Susp) 10 ml PO TID PRN PRN Reason: Cough Stop: 07/12/18 06:57 Quetiapine Fumarate (Seroquel) 150 mg PO HS [facility]; Protocol Stop: 09/01/18 20:59 Last Admin: 07/03/18 20:49 Dose: 150 mg Rivaroxaban (Xarelto) 20 mg PO DAILY [facility] Stop: 08/26/18 13:29 Last Admin: 07/04/18 08:39 Dose: 20 mg Sitagliptin Phosphate (Januvia) 100 mg PO DAILY [facility] Stop: 08/24/18 08:59 Last Admin: 07/04/18 08:40 Dose: 100 mg Zolpidem Tartrate (Ambien) 10 mg PO HS PRN PRN Reason: Insomnia Stop: 08/23/18 19:31 Last Admin: 07/03/18 20:48 Dose: 10 mg General: demented, other (inpulsive, unpredictable ) HEENT: NC/AT Neck: Supple Lungs: CTAB Cardiovascular: RRR, Normal S1, Normal S2 Abdomen: soft, non-tender Extremities: clear Neurological: no change Internal Medicine Assmt/Plan - Assessment Assessment: Mood swings aggresive behaviour 5150 hold htn dm bipolar disease gerd h/o fib insomnia constipation depression - Plan Plan: METFORMIN ADDED MONITOR S/SX OF HYPO/HYPERGLYCEMIA CPM Nutritional Asmnt/Malnutr-PDOC - Dietary Evaluation Malnutrition Findings (Please click <Entered> for more info): Nutritional Asmnt/Malnutrition Start: 06/25/18 14: 31 Text: Status: Complete Freq: Protocol: Document 06/25/18 14:31 [email or web address] (Rec: 06/25/18 14:40 [email or web address]) Nutritional Asmnt/Malnutrition Patient General Information Nutritional Screening High Risk Consult Diagnosis psychosis nos Pertinent Medical Hx/Surgical Hx HTN, DM, arthritis of the knee , bipolar disorder, GERD, Afib , depression, anxiety, insomnia, constipation. depression, bipolar Subjective Information Consult recieved for diabetes. POC 400 on 06/24 noted. Pt was seen eating lunch in bed at time of visit. Lunch was seen eaten about 50%. Pt is alert but confused, unable to give DM education. Food preferences taken. Current Diet Order/ Nutrition Support low sodium 2gm, diabetic Pertinent Medications novolog, miralax, januvia, ambien Pertinent Labs 06/24 Na 134, alb 3.4, Triglycerides 397, POC 400 Nutritional Hx/Data Height 5 ft 6 in Height (Calculated Centimeters) 167.6 Current Weight (lbs) 305 lb Weight (Calculated Kilograms) 138.3 Weight (Calculated Grams) 497264.7 [place] Body Weight 130 Body Mass Index (BMI) 49.2 Weight Status Morbidly Obese GI Symptoms GI Symptoms None Last BM not indicated Difficult in: None Food Allergies No Skin Integrity/Comment: mitul Dubose Current %PO Fair (50-74%) Estimated Nutritional Goals BEE in Kcals: Using Current wt Adj wt of IBW Calories/Kcals/Kg 25-30 Kcals Calculated Protein: Adj wt of IBW Protein g/k Protein Calculated 78 Fluid: ml (1ml/kcal) Nutritional Problem 1. Problem Problem altered nutrition related labs Etiology hyperglycemia Signs/Symptoms: POC 400 Malnutrition Alert Is there a minimum of two criteria No selected? Query Text:Check all the applicable criteria. A minimum of two criteria are recommended for diagnosis of either severe or non-severe malnutrition. Malnutrition Related to Morbid Obesity Malnutrition related to morbid obesity No Intervention/Recommendation Comments 1. Continue with low sodium 2gm, CCHO diet as ordered. 2. MD to modify insulin regmen for optimal glycemic control 3. Monitor PO intake, wt, labs and skin integrity 4. F/U as moderate risk in 3-5 days Expected Outcomes/Goals Expected Outcomes/Goals 1. PO intake to meet at least 75% of nutritional needs. 2. Wt stability, skin to remain intact, labs to approach WNL. Reviewed by Kristi Zurita RD
[2018-07-04] MEDS: NYSTATIN 100000 UNITS/GM POWD TP SCH (17:41)
--- NOTE | 2018-07-04 21:39 | Progress Notes ---
DATE: SUBJECTIVE: Chart reviewed and the patient interviewed. Also discussed the patient's condition with the staff and reviewed records and labs. The patient is depressed because "nobody wants me." The patient feels that placement is difficult and no one is going to take her. The patient also is still feeling hopeless and helpless at times, but at the same time she is calm and cooperative. She stays by herself in her room most of the time and does not interact much. ASSESSMENT: The patient is still depressed and waiting for placement. TREATMENT PLAN: We will continue monitoring her behavior closely. Also, continue to work on discharge plans and placement issue. JOB# [id number]
[2018-07-05] MEDS: Albuterol Nebulizer 2.5mg/3mL HHN SCH ×4 (00:45→18:18)
[2018-07-05] MEDS: Hydrocodone/APAP 10 mg/325 mg Tab PO PRN ×3 (04:41→21:08)
[2018-07-05] MEDS: INSULIN ASPART SLIDING SCALE 100 UNITS/ML UNIT SUBQ SCH ×4 (06:35→21:21)
[2018-07-05] MEDS: Aspirin 81mg Chewable Tab PO SCH (09:07)
[2018-07-05] MEDS: Multivitamin w/ Minerals Tab PO SCH (09:08)
--- NOTE | 2018-07-05 09:33 | Progress Notes ---
DATE: 07/05/2018 DATE OF SERVICE: 07/05/2018. Chart reviewed and the patient interviewed. Also discussed the patient's condition with the staff and reviewed records and labs. The patient is still in a depressed mood and the patient is still isolative and withdrawn. The patient also is depressed because she feels that nobody cares and nobody is going to take care. She also is still feeling hopeless. She also is interacting minimally with others. Otherwise, the patient is compliant with taking her medications. No aggressive behavior, but only the patient gets demanding at times. ASSESSMENT: The patient is depressed and still needs close monitoring as well as needs placement. PLAN: We will continue monitoring her behavior and her condition closely. Also increase Lexapro to 20 mg every day. Also, continue adjusting medications and also working on discharge plans and on placement issue. JOB# [id number]
[2018-07-05] MEDS: Hydrocodone/APAP 5mg/325mg Tab PO PRN (09:46)
[2018-07-05] MEDS: NYSTATIN 100000 UNITS/GM POWD TP SCH (10:30)
--- NOTE | 2018-07-05 13:20 | Internal Medicine Prog Note ---
Internal Medicine Subjective - Subjective Service Date: 07/05/18 Patient is:: awake, verbal, agitated (admitted for aggresive behaviour, 5150 hold), confused, other (Angry an upset, has severe mood swings, can be danger to self and others.) Per staff patient has:: confused, other (Refuses to take Depakote has agreed to take Abilify.) Internal Medicine Objective - Results Result Diagrams: 06/24/18 17:03 06/24/18 17:03 Recent Labs: Laboratory Last Values WBC 7.1 Th/cmm (4.8-10.8) 06/24/18 17:03 RBC 4.48 Mil/cmm (3.80-5.20) 06/24/18 17:03 Hgb 12.5 gm/dL (12-16) 06/24/18 17:03 Hct 37.3 % (41.0-60) L 06/24/18 17:03 MCV 83.2 fl (81-100) 06/24/18 17:03 MCH 27.8 pg (27.0-31.0) 06/24/18 17:03 MCHC Differential 33.4 pg (28.0-36.0) 06/24/18 17:03 RDW 13.6 % (11.5-20.0) 06/24/18 17:03 Plt Count 266 Th/cmm (150-400) 06/24/18 17:03 MPV 6.3 fl 06/24/18 17:03 Neutrophils % 73.6 % (40.0-80.0) 06/24/18 17:03 Lymphocytes % 18.5 % (20.0-50.0) L 06/24/18 17:03 Monocytes % 6.4 % (2.0-10.0) 06/24/18 17:03 Eosinophils % 1.1 % (0.0-5.0) 06/24/18 17:03 Basophils % 0.4 % (0.0-2.0) 06/24/18 17:03 Sodium 134 mEq/L (136-145) L 06/24/18 17:03 Potassium 4.3 mEq/L (3.5-5.1) 06/24/18 17:03 Chloride 102 mEq/L (98-107) 06/24/18 17:03 Carbon Dioxide 21.4 mEq/L (21.0-31.0) 06/24/18 17:03 Anion Gap 14.9 (7.0-16.0) 06/24/18 17:03 BUN 15 mg/dL (7-25) 06/24/18 17:03 Creatinine 1.0 mg/dL (0.6-1.2) 06/24/18 17:03 Est GFR ( Amer) > 60.0 ml/min (>90) 06/24/18 17:03 Est GFR (Non-Af Amer) 59.0 ml/min 06/24/18 17:03 BUN/Creatinine Ratio 15.0 06/24/18 17:03 Glucose mg/dL (70-105) 06/24/18 17:03 POC Glucose 350 MG/DL (70 - 105) H 06/27/18 16:55 Calcium 8.9 mg/dL (8.6-10.3) 06/24/18 17:03 Total Bilirubin 0.3 mg/dL (0.3-1.0) 06/24/18 17:03 AST 16 U/L (13-39) 06/24/18 17:03 ALT 15 U/L (7-52) 06/24/18 17:03 Alkaline Phosphatase 80 U/L (34-104) 06/24/18 17:03 Total Protein 5.8 gm/dL (6.0-8.3) L 06/24/18 17:03 Albumin 3.4 gm/dL (3.7-5.3) L 06/24/18 17:03 Globulin 2.4 gm/dL 06/24/18 17:03 Albumin/Globulin Ratio 1.4 (1.0-1.8) 06/24/18 17:03 Triglycerides 397 mg/dL (<150) H 06/24/18 17:03 Cholesterol 159 mg/dL (<200) 06/24/18 17:03 LDL Cholesterol Direct 91 mg/dL (75-193) 06/24/18 17:03 HDL Cholesterol 29 mg/dL (23-92) 06/24/18 17:03 TSH 3.17 uIU/ml (0.34-5.60) 06/24/18 17:03 Urine Source CATH 06/24/18 16:30 Urine Color YELLOW 06/24/18 16:30 Urine Clarity CLOUDY (CLEAR) H 06/24/18 16:30 Urine pH 6.0 (4.6 - 8.0) 06/24/18 16:30 Ur Specific [place] 1.015 (1.005-1.030) 06/24/18 16:30 Urine Protein NEGATIVE mg/dL (NEGATIVE) 06/24/18 16:30 Urine Glucose (UA) >=1000 mg/dL (NEGATIVE) H 06/24/18 16:30 Urine Ketones NEGATIVE mg/dL (NEGATIVE) 06/24/18 16:30 Urine Blood SMALL (NEGATIVE) H 06/24/18 16:30 Urine Nitrate POSITIVE (NEGATIVE) H 06/24/18 16:30 Urine Bilirubin NEGATIVE (NEGATIVE) 06/24/18 16:30 Urine Urobilinogen 0.2 E.U./dL (0.2 - 1.0) 06/24/18 16:30 Ur Leukocyte Esterase SMALL (NEGATIVE) H 06/24/18 16:30 Urine RBC 2-5 /hpf (0-5) 06/24/18 16:30 Urine WBC 50-100 /hpf (0-5) H 06/24/18 16:30 Ur Epithelial Cells FEW /lpf (FEW) 06/24/18 16:30 Urine Bacteria FEW /hpf (NONE SEEN) 06/24/18 16:30 Valproic Acid 11.8 ug/mL (50.0-100.0) L 06/25/18 08:18 RPR NONREACTIVE (NONREACTIVE) 06/24/18 17:03 - Physical Exam Vitals and I&O: Vital Signs Temp 0 F 07/05/18 05:55 Pulse 72 07/05/18 12:10 Resp 16 07/05/18 12:10 BP 129/78 07/05/18 09:08 Pulse Ox 91 07/05/18 12:10 Intake & Output 07/04/18 07/05/18 07/05/18 18:59 06:59 18:59 Intake Total 1800 240 Balance 1800 240 Intake: Oral 1800 240 Other: # Voids 3 3 # Bowel Movements 1 1 Active Medications: Current Medications Acetaminophen (Tylenol) 650 mg PO Q4HR PRN PRN Reason: Mild Pain / Temp above 100 Stop: 08/23/18 19:31 Acetaminophen/Hydrocodone Bitart ([place] 10 Mg/325 Mg) 1 tab PO Q4H PRN PRN Reason: Pain (Severe) Last Admin: 07/05/18 04:41 Dose: 1 tab Acetaminophen/Hydrocodone Bitart ([place] 5mg/325mg) 1 tab PO Q4H PRN PRN Reason: Pain (Moderate) Stop: 08/23/18 19:31 Last Admin: 07/05/18 09:46 Dose: 1 tab Albuterol Sulfate (Albuterol 2.5mg/3ml Neb Ud) 2.5 mg HHN Q6HRT [facility] Stop: 08/31/18 07:14 Last Admin: 07/05/18 12:57 Dose: 2.5 mg Amiodarone HCl (Cordarone) 200 mg PO BID [facility] Stop: 08/24/18 08:59 Last Admin: 07/05/18 09:06 Dose: 200 mg Amlodipine Besylate (Norvasc) 10 mg PO DAILY [facility] Stop: 08/31/18 08:59 Last Admin: 07/05/18 09:08 Dose: 10 mg Aspirin (Aspirin Chewable) 81 mg PO DAILY [facility] Stop: 08/24/18 08:59 Last Admin: 07/05/18 09:07 Dose: 81 mg Bisacodyl (Dulcolax 10 Mg Supp) 10 mg RC DAILY PRN PRN Reason: Constipation Stop: 08/23/18 19:31 Digoxin (Lanoxin) 0.25 mg PO DAILY [facility] Stop: 08/24/18 08:59 Last Admin: 07/05/18 09:08 Dose: 0.25 mg Escitalopram Oxalate (Lexapro) 20 mg PO DAILY [facility] Stop: 09/03/18 08:59 Last Admin: 07/05/18 09:08 Dose: 20 mg Insulin Aspart (Novolog Insulin Sliding Scale) 0 units SUBQ ACHS [facility]; Protocol Stop: 08/23/18 22:15 Last Admin: 07/05/18 12:00 Dose: Not Given Metformin HCl (Glucophage) 500 mg PO BIDWM [facility] Stop: 08/28/18 17:59 Last Admin: 07/05/18 09:08 Dose: 500 mg Nitrofurantoin Macrocrystals (Macrobid) 100 mg PO BID [facility]; Protocol Stop: 08/26/18 16:59 Last Admin: 07/05/18 09:08 Dose: 100 mg Nystatin (Nystop) 0 units TP DAILY [facility] Stop: 08/24/18 08:59 Last Admin: 07/05/18 10:30 Dose: 100,000 units Oxybutynin Chloride (Ditropan) 5 mg PO BID [facility] Stop: 08/24/18 08:59 Last Admin: 07/05/18 09:07 Dose: 5 mg Polyethylene Glycol (Miralax) 17 gm PO DAILY PRN PRN Reason: Constipation Stop: 08/23/18 19:31 Last Admin: 07/01/18 16:08 Dose: 17 gm Promethazine HCl/Codeine (Phenergan W/Cod Susp) 10 ml PO TID PRN PRN Reason: Cough Stop: 07/12/18 06:57 Quetiapine Fumarate (Seroquel) 150 mg PO HS [facility]; Protocol Stop: 09/01/18 20:59 Last Admin: 07/04/18 20:23 Dose: 150 mg Rivaroxaban (Xarelto) 20 mg PO DAILY [facility] Stop: 08/26/18 13:29 Last Admin: 07/05/18 09:08 Dose: 20 mg Sitagliptin Phosphate (Januvia) 100 mg PO DAILY [facility] Stop: 08/24/18 08:59 Last Admin: 07/05/18 09:08 Dose: 100 mg Zolpidem Tartrate (Ambien) 10 mg PO HS PRN PRN Reason: Insomnia Stop: 08/23/18 19:31 Last Admin: 07/04/18 20:23 Dose: 10 mg General: demented, other (inpulsive, unpredictable ) HEENT: NC/AT Neck: Supple Lungs: CTAB Cardiovascular: RRR, Normal S1, Normal S2 Abdomen: soft, non-tender Extremities: clear Neurological: no change Internal Medicine Assmt/Plan - Assessment Assessment: Mood swings aggresive behaviour 5150 hold htn dm bipolar disease gerd h/o fib insomnia constipation depression - Plan Plan: METFORMIN ADDED MONITOR S/SX OF HYPO/HYPERGLYCEMIA CPM Nutritional Asmnt/Malnutr-PDOC - Dietary Evaluation Malnutrition Findings (Please click <Entered> for more info): Nutritional Asmnt/Malnutrition Start: 06/25/18 14: 31 Text: Status: Complete Freq: Protocol: Document 06/25/18 14:31 [email or web address] (Rec: 06/25/18 14:40 [email or web address]) Nutritional Asmnt/Malnutrition Patient General Information Nutritional Screening High Risk Consult Diagnosis psychosis nos Pertinent Medical Hx/Surgical Hx HTN, DM, arthritis of the knee , bipolar disorder, GERD, Afib , depression, anxiety, insomnia, constipation. depression, bipolar Subjective Information Consult recieved for diabetes. POC 400 on 06/24 noted. Pt was seen eating lunch in bed at time of visit. Lunch was seen eaten about 50%. Pt is alert but confused, unable to give DM education. Food preferences taken. Current Diet Order/ Nutrition Support low sodium 2gm, diabetic Pertinent Medications novolog, miralax, januvia, ambien Pertinent Labs 06/24 Na 134, alb 3.4, Triglycerides 397, POC 400 Nutritional Hx/Data Height 5 ft 6 in Height (Calculated Centimeters) 167.6 Current Weight (lbs) 305 lb Weight (Calculated Kilograms) 138.3 Weight (Calculated Grams) 980076.7 [place] Body Weight 130 Body Mass Index (BMI) 49.2 Weight Status Morbidly Obese GI Symptoms GI Symptoms None Last BM not indicated Difficult in: None Food Allergies No Skin Integrity/Comment: mitul Dubose Current %PO Fair (50-74%) Estimated Nutritional Goals BEE in Kcals: Using Current wt Adj wt of IBW Calories/Kcals/Kg 25-30 Kcals Calculated Protein: Adj wt of IBW Protein g/k Protein Calculated 78 Fluid: ml (1ml/kcal) Nutritional Problem 1. Problem Problem altered nutrition related labs Etiology hyperglycemia Signs/Symptoms: POC 400 Malnutrition Alert Is there a minimum of two criteria No selected? Query Text:Check all the applicable criteria. A minimum of two criteria are recommended for diagnosis of either severe or non-severe malnutrition. Malnutrition Related to Morbid Obesity Malnutrition related to morbid obesity No Intervention/Recommendation Comments 1. Continue with low sodium 2gm, CCHO diet as ordered. 2. MD to modify insulin regmen for optimal glycemic control 3. Monitor PO intake, wt, labs and skin integrity 4. F/U as moderate risk in 3-5 days Expected Outcomes/Goals Expected Outcomes/Goals 1. PO intake to meet at least 75% of nutritional needs. 2. Wt stability, skin to remain intact, labs to approach WNL. Reviewed by Kristi Zurita RD
[2018-07-06] MEDS: Hydrocodone/APAP 10 mg/325 mg Tab PO PRN ×3 (03:58→23:06)
[2018-07-06] MEDS: INSULIN ASPART SLIDING SCALE 100 UNITS/ML UNIT SUBQ SCH ×5 (06:33→20:49)
[2018-07-06] MEDS: Albuterol Nebulizer 2.5mg/3mL HHN SCH ×3 (06:49→18:43)
[2018-07-06] MEDS: Multivitamin w/ Minerals Tab PO SCH (09:08)
[2018-07-06] MEDS: Aspirin 81mg Chewable Tab PO SCH (09:08)
--- NOTE | 2018-07-06 14:42 | Internal Medicine Prog Note ---
Internal Medicine Subjective - Subjective Service Date: 07/06/18 Patient is:: awake, verbal, agitated (admitted for aggresive behaviour, 5150 hold), confused, other (Angry an upset, has severe mood swings, can be danger to self and others.) Per staff patient has:: confused, other (Refuses to take Depakote has agreed to take Abilify.) Internal Medicine Objective - Results Result Diagrams: 06/24/18 17:03 06/24/18 17:03 Recent Labs: Laboratory Last Values WBC 7.1 Th/cmm (4.8-10.8) 06/24/18 17:03 RBC 4.48 Mil/cmm (3.80-5.20) 06/24/18 17:03 Hgb 12.5 gm/dL (12-16) 06/24/18 17:03 Hct 37.3 % (41.0-60) L 06/24/18 17:03 MCV 83.2 fl (81-100) 06/24/18 17:03 MCH 27.8 pg (27.0-31.0) 06/24/18 17:03 MCHC Differential 33.4 pg (28.0-36.0) 06/24/18 17:03 RDW 13.6 % (11.5-20.0) 06/24/18 17:03 Plt Count 266 Th/cmm (150-400) 06/24/18 17:03 MPV 6.3 fl 06/24/18 17:03 Neutrophils % 73.6 % (40.0-80.0) 06/24/18 17:03 Lymphocytes % 18.5 % (20.0-50.0) L 06/24/18 17:03 Monocytes % 6.4 % (2.0-10.0) 06/24/18 17:03 Eosinophils % 1.1 % (0.0-5.0) 06/24/18 17:03 Basophils % 0.4 % (0.0-2.0) 06/24/18 17:03 Sodium 134 mEq/L (136-145) L 06/24/18 17:03 Potassium 4.3 mEq/L (3.5-5.1) 06/24/18 17:03 Chloride 102 mEq/L (98-107) 06/24/18 17:03 Carbon Dioxide 21.4 mEq/L (21.0-31.0) 06/24/18 17:03 Anion Gap 14.9 (7.0-16.0) 06/24/18 17:03 BUN 15 mg/dL (7-25) 06/24/18 17:03 Creatinine 1.0 mg/dL (0.6-1.2) 06/24/18 17:03 Est GFR ( Amer) > 60.0 ml/min (>90) 06/24/18 17:03 Est GFR (Non-Af Amer) 59.0 ml/min 06/24/18 17:03 BUN/Creatinine Ratio 15.0 06/24/18 17:03 Glucose mg/dL (70-105) 06/24/18 17:03 POC Glucose 350 MG/DL (70 - 105) H 06/27/18 16:55 Calcium 8.9 mg/dL (8.6-10.3) 06/24/18 17:03 Total Bilirubin 0.3 mg/dL (0.3-1.0) 06/24/18 17:03 AST 16 U/L (13-39) 06/24/18 17:03 ALT 15 U/L (7-52) 06/24/18 17:03 Alkaline Phosphatase 80 U/L (34-104) 06/24/18 17:03 Total Protein 5.8 gm/dL (6.0-8.3) L 06/24/18 17:03 Albumin 3.4 gm/dL (3.7-5.3) L 06/24/18 17:03 Globulin 2.4 gm/dL 06/24/18 17:03 Albumin/Globulin Ratio 1.4 (1.0-1.8) 06/24/18 17:03 Triglycerides 397 mg/dL (<150) H 06/24/18 17:03 Cholesterol 159 mg/dL (<200) 06/24/18 17:03 LDL Cholesterol Direct 91 mg/dL (75-193) 06/24/18 17:03 HDL Cholesterol 29 mg/dL (23-92) 06/24/18 17:03 TSH 3.17 uIU/ml (0.34-5.60) 06/24/18 17:03 Urine Source CATH 06/24/18 16:30 Urine Color YELLOW 06/24/18 16:30 Urine Clarity CLOUDY (CLEAR) H 06/24/18 16:30 Urine pH 6.0 (4.6 - 8.0) 06/24/18 16:30 Ur Specific [place] 1.015 (1.005-1.030) 06/24/18 16:30 Urine Protein NEGATIVE mg/dL (NEGATIVE) 06/24/18 16:30 Urine Glucose (UA) >=1000 mg/dL (NEGATIVE) H 06/24/18 16:30 Urine Ketones NEGATIVE mg/dL (NEGATIVE) 06/24/18 16:30 Urine Blood SMALL (NEGATIVE) H 06/24/18 16:30 Urine Nitrate POSITIVE (NEGATIVE) H 06/24/18 16:30 Urine Bilirubin NEGATIVE (NEGATIVE) 06/24/18 16:30 Urine Urobilinogen 0.2 E.U./dL (0.2 - 1.0) 06/24/18 16:30 Ur Leukocyte Esterase SMALL (NEGATIVE) H 06/24/18 16:30 Urine RBC 2-5 /hpf (0-5) 06/24/18 16:30 Urine WBC 50-100 /hpf (0-5) H 06/24/18 16:30 Ur Epithelial Cells FEW /lpf (FEW) 06/24/18 16:30 Urine Bacteria FEW /hpf (NONE SEEN) 06/24/18 16:30 Valproic Acid 11.8 ug/mL (50.0-100.0) L 06/25/18 08:18 RPR NONREACTIVE (NONREACTIVE) 06/24/18 17:03 - Physical Exam Vitals and I&O: Vital Signs Temp 97.8 F 07/06/18 14:00 Pulse 68 07/06/18 14:00 Resp 18 07/06/18 14:00 BP 105/75 07/06/18 14:00 Pulse Ox 96 07/06/18 14:00 Intake & Output 07/05/18 07/06/18 07/06/18 18:59 06:59 18:59 Intake Total 120 Balance 120 Intake: Oral 120 Other: # Voids 3 # Bowel Movements 1 Active Medications: Current Medications Acetaminophen (Tylenol) 650 mg PO Q4HR PRN PRN Reason: Mild Pain / Temp above 100 Stop: 08/23/18 19:31 Acetaminophen/Hydrocodone Bitart ([place] 10 Mg/325 Mg) 1 tab PO Q4H PRN PRN Reason: Pain (Severe) Last Admin: 07/06/18 09:07 Dose: 1 tab Acetaminophen/Hydrocodone Bitart ([place] 5mg/325mg) 1 tab PO Q4H PRN PRN Reason: Pain (Moderate) Stop: 08/23/18 19:31 Last Admin: 07/05/18 09:46 Dose: 1 tab Albuterol Sulfate (Albuterol 2.5mg/3ml Neb Ud) 2.5 mg HHN Q6HRT [facility] Stop: 08/31/18 07:14 Last Admin: 07/06/18 14:00 Dose: 2.5 mg Amiodarone HCl (Cordarone) 200 mg PO BID [facility] Stop: 08/24/18 08:59 Last Admin: 07/06/18 09:08 Dose: 200 mg Amlodipine Besylate (Norvasc) 10 mg PO DAILY [facility] Stop: 08/31/18 08:59 Last Admin: 07/06/18 09:09 Dose: 10 mg Aspirin (Aspirin Chewable) 81 mg PO DAILY [facility] Stop: 08/24/18 08:59 Last Admin: 07/06/18 09:08 Dose: 81 mg Bisacodyl (Dulcolax 10 Mg Supp) 10 mg RC DAILY PRN PRN Reason: Constipation Stop: 08/23/18 19:31 Digoxin (Lanoxin) 0.25 mg PO DAILY [facility] Stop: 08/24/18 08:59 Last Admin: 07/06/18 09:07 Dose: 0.25 mg Escitalopram Oxalate (Lexapro) 20 mg PO DAILY [facility] Stop: 09/03/18 08:59 Last Admin: 07/06/18 09:07 Dose: 20 mg Insulin Aspart (Novolog Insulin Sliding Scale) 0 units SUBQ ACHS [facility]; Protocol Stop: 08/23/18 22:15 Last Admin: 07/06/18 11:53 Dose: 6 units Metformin HCl (Glucophage) 500 mg PO BIDWM [facility] Stop: 08/28/18 17:59 Last Admin: 07/06/18 09:08 Dose: 500 mg Nitrofurantoin Macrocrystals (Macrobid) 100 mg PO BID [facility]; Protocol Stop: 08/26/18 16:59 Last Admin: 07/06/18 09:07 Dose: 100 mg Nystatin (Nystop) 0 units TP DAILY [facility] Stop: 08/24/18 08:59 Last Admin: 07/05/18 10:30 Dose: 100,000 units Oxybutynin Chloride (Ditropan) 5 mg PO BID [facility] Stop: 08/24/18 08:59 Last Admin: 07/06/18 09:08 Dose: 5 mg Polyethylene Glycol (Miralax) 17 gm PO DAILY PRN PRN Reason: Constipation Stop: 08/23/18 19:31 Last Admin: 07/01/18 16:08 Dose: 17 gm Promethazine HCl/Codeine (Phenergan W/Cod Susp) 10 ml PO TID PRN PRN Reason: Cough Stop: 07/12/18 06:57 Quetiapine Fumarate (Seroquel) 150 mg PO HS [facility]; Protocol Stop: 09/01/18 20:59 Last Admin: 07/05/18 20:06 Dose: 150 mg Rivaroxaban (Xarelto) 20 mg PO DAILY [facility] Stop: 08/26/18 13:29 Last Admin: 07/06/18 09:07 Dose: 20 mg Sitagliptin Phosphate (Januvia) 100 mg PO DAILY [facility] Stop: 08/24/18 08:59 Last Admin: 07/06/18 09:07 Dose: 100 mg Zolpidem Tartrate (Ambien) 10 mg PO HS PRN PRN Reason: Insomnia Stop: 08/23/18 19:31 Last Admin: 07/05/18 20:06 Dose: 10 mg General: demented, other (inpulsive, unpredictable ) HEENT: NC/AT Neck: Supple Lungs: CTAB Cardiovascular: RRR, Normal S1, Normal S2 Abdomen: soft, non-tender Extremities: clear Neurological: no change Internal Medicine Assmt/Plan - Assessment Assessment: Mood swings aggresive behaviour 5150 hold htn dm bipolar disease gerd h/o fib insomnia constipation depression - Plan Plan: METFORMIN ADDED MONITOR S/SX OF HYPO/HYPERGLYCEMIA CPM Nutritional Asmnt/Malnutr-PDOC - Dietary Evaluation Malnutrition Findings (Please click <Entered> for more info): Nutritional Asmnt/Malnutrition Start: 06/25/18 14: 31 Text: Status: Complete Freq: Protocol: Document 06/25/18 14:31 [email or web address] (Rec: 06/25/18 14:40 [email or web address]) Nutritional Asmnt/Malnutrition Patient General Information Nutritional Screening High Risk Consult Diagnosis psychosis nos Pertinent Medical Hx/Surgical Hx HTN, DM, arthritis of the knee , bipolar disorder, GERD, Afib , depression, anxiety, insomnia, constipation. depression, bipolar Subjective Information Consult recieved for diabetes. POC 400 on 06/24 noted. Pt was seen eating lunch in bed at time of visit. Lunch was seen eaten about 50%. Pt is alert but confused, unable to give DM education. Food preferences taken. Current Diet Order/ Nutrition Support low sodium 2gm, diabetic Pertinent Medications novolog, miralax, januvia, ambien Pertinent Labs 06/24 Na 134, alb 3.4, Triglycerides 397, POC 400 Nutritional Hx/Data Height 5 ft 6 in Height (Calculated Centimeters) 167.6 Current Weight (lbs) 305 lb Weight (Calculated Kilograms) 138.3 Weight (Calculated Grams) 657026.7 [place] Body Weight 130 Body Mass Index (BMI) 49.2 Weight Status Morbidly Obese GI Symptoms GI Symptoms None Last BM not indicated Difficult in: None Food Allergies No Skin Integrity/Comment: mitul Dubose Current %PO Fair (50-74%) Estimated Nutritional Goals BEE in Kcals: Using Current wt Adj wt of IBW Calories/Kcals/Kg 25-30 Kcals Calculated Protein: Adj wt of IBW Protein g/k Protein Calculated 78 Fluid: ml (1ml/kcal) Nutritional Problem 1. Problem Problem altered nutrition related labs Etiology hyperglycemia Signs/Symptoms: POC 400 Malnutrition Alert Is there a minimum of two criteria No selected? Query Text:Check all the applicable criteria. A minimum of two criteria are recommended for diagnosis of either severe or non-severe malnutrition. Malnutrition Related to Morbid Obesity Malnutrition related to morbid obesity No Intervention/Recommendation Comments 1. Continue with low sodium 2gm, CCHO diet as ordered. 2. MD to modify insulin regmen for optimal glycemic control 3. Monitor PO intake, wt, labs and skin integrity 4. F/U as moderate risk in 3-5 days Expected Outcomes/Goals Expected Outcomes/Goals 1. PO intake to meet at least 75% of nutritional needs. 2. Wt stability, skin to remain intact, labs to approach WNL. Reviewed by Kristi Zurita RD
[2018-07-06] MEDS: NYSTATIN 100000 UNITS/GM POWD TP SCH (16:59)
[2018-07-06] MEDS: Hydrocodone/APAP 5mg/325mg Tab PO PRN (17:28)
[2018-07-07] MEDS: Albuterol Nebulizer 2.5mg/3mL HHN SCH ×4 (02:39→19:35)
[2018-07-07] MEDS: Hydrocodone/APAP 10 mg/325 mg Tab PO PRN (03:59)
[2018-07-07] MEDS: INSULIN ASPART SLIDING SCALE 100 UNITS/ML UNIT SUBQ SCH ×3 (06:40→21:09)
[2018-07-07] MEDS: Aspirin 81mg Chewable Tab PO SCH (08:34)
[2018-07-07] MEDS: Multivitamin w/ Minerals Tab PO SCH (08:48)
[2018-07-07] MEDS: Hydrocodone/APAP 5mg/325mg Tab PO PRN ×3 (08:48→19:25)
[2018-07-07] MEDS: NYSTATIN 100000 UNITS/GM POWD TP SCH (09:25)
--- NOTE | 2018-07-07 09:46 | Progress Notes ---
DATE: 07/06/2018 PSYCHIATRIC PROGRESS NOTE SUBJECTIVE: Chart reviewed and the patient interviewed. Also discussed the patient's condition with the staff and reviewed records and labs. The patient is still severely depressed. The patient also is still anxious and is still withdrawn and interacting minimally with others. The patient also denies any intention to harm herself or others. She is depressed, especially that she is not sure about where she will be going to. The patient wants a place close to her daughter. Otherwise, the patient is compliant with taking medications with no side effects of medications. ASSESSMENT: The patient is still depressed, but has no major behavioral issues. TREATMENT PLAN: Continue Lexapro that was increased yesterday to 20 mg every day. Also, continue to work on discharge plans and placement issue. JOB# [id number]
--- NOTE | 2018-07-07 13:14 | Internal Medicine Prog Note ---
Internal Medicine Subjective - Subjective Service Date: 07/07/18 Patient is:: awake, verbal, agitated (admitted for aggresive behaviour, 5150 hold), confused, other (Angry an upset, has severe mood swings, can be danger to self and others.) Per staff patient has:: confused, other (Refuses to take Depakote has agreed to take Abilify.) Internal Medicine Objective - Results Result Diagrams: 06/24/18 17:03 06/24/18 17:03 Recent Labs: Laboratory Last Values WBC 7.1 Th/cmm (4.8-10.8) 06/24/18 17:03 RBC 4.48 Mil/cmm (3.80-5.20) 06/24/18 17:03 Hgb 12.5 gm/dL (12-16) 06/24/18 17:03 Hct 37.3 % (41.0-60) L 06/24/18 17:03 MCV 83.2 fl (81-100) 06/24/18 17:03 MCH 27.8 pg (27.0-31.0) 06/24/18 17:03 MCHC Differential 33.4 pg (28.0-36.0) 06/24/18 17:03 RDW 13.6 % (11.5-20.0) 06/24/18 17:03 Plt Count 266 Th/cmm (150-400) 06/24/18 17:03 MPV 6.3 fl 06/24/18 17:03 Neutrophils % 73.6 % (40.0-80.0) 06/24/18 17:03 Lymphocytes % 18.5 % (20.0-50.0) L 06/24/18 17:03 Monocytes % 6.4 % (2.0-10.0) 06/24/18 17:03 Eosinophils % 1.1 % (0.0-5.0) 06/24/18 17:03 Basophils % 0.4 % (0.0-2.0) 06/24/18 17:03 Sodium 134 mEq/L (136-145) L 06/24/18 17:03 Potassium 4.3 mEq/L (3.5-5.1) 06/24/18 17:03 Chloride 102 mEq/L (98-107) 06/24/18 17:03 Carbon Dioxide 21.4 mEq/L (21.0-31.0) 06/24/18 17:03 Anion Gap 14.9 (7.0-16.0) 06/24/18 17:03 BUN 15 mg/dL (7-25) 06/24/18 17:03 Creatinine 1.0 mg/dL (0.6-1.2) 06/24/18 17:03 Est GFR ( Amer) > 60.0 ml/min (>90) 06/24/18 17:03 Est GFR (Non-Af Amer) 59.0 ml/min 06/24/18 17:03 BUN/Creatinine Ratio 15.0 06/24/18 17:03 Glucose mg/dL (70-105) 06/24/18 17:03 POC Glucose 165 MG/DL (70 - 105) H 07/07/18 12:27 Calcium 8.9 mg/dL (8.6-10.3) 06/24/18 17:03 Total Bilirubin 0.3 mg/dL (0.3-1.0) 06/24/18 17:03 AST 16 U/L (13-39) 06/24/18 17:03 ALT 15 U/L (7-52) 06/24/18 17:03 Alkaline Phosphatase 80 U/L (34-104) 06/24/18 17:03 Total Protein 5.8 gm/dL (6.0-8.3) L 06/24/18 17:03 Albumin 3.4 gm/dL (3.7-5.3) L 06/24/18 17:03 Globulin 2.4 gm/dL 06/24/18 17:03 Albumin/Globulin Ratio 1.4 (1.0-1.8) 06/24/18 17:03 Triglycerides 397 mg/dL (<150) H 06/24/18 17:03 Cholesterol 159 mg/dL (<200) 06/24/18 17:03 LDL Cholesterol Direct 91 mg/dL (75-193) 06/24/18 17:03 HDL Cholesterol 29 mg/dL (23-92) 06/24/18 17:03 TSH 3.17 uIU/ml (0.34-5.60) 06/24/18 17:03 Urine Source CATH 06/24/18 16:30 Urine Color YELLOW 06/24/18 16:30 Urine Clarity CLOUDY (CLEAR) H 06/24/18 16:30 Urine pH 6.0 (4.6 - 8.0) 06/24/18 16:30 Ur Specific [place] 1.015 (1.005-1.030) 06/24/18 16:30 Urine Protein NEGATIVE mg/dL (NEGATIVE) 06/24/18 16:30 Urine Glucose (UA) >=1000 mg/dL (NEGATIVE) H 06/24/18 16:30 Urine Ketones NEGATIVE mg/dL (NEGATIVE) 06/24/18 16:30 Urine Blood SMALL (NEGATIVE) H 06/24/18 16:30 Urine Nitrate POSITIVE (NEGATIVE) H 06/24/18 16:30 Urine Bilirubin NEGATIVE (NEGATIVE) 06/24/18 16:30 Urine Urobilinogen 0.2 E.U./dL (0.2 - 1.0) 06/24/18 16:30 Ur Leukocyte Esterase SMALL (NEGATIVE) H 06/24/18 16:30 Urine RBC 2-5 /hpf (0-5) 06/24/18 16:30 Urine WBC 50-100 /hpf (0-5) H 06/24/18 16:30 Ur Epithelial Cells FEW /lpf (FEW) 06/24/18 16:30 Urine Bacteria FEW /hpf (NONE SEEN) 06/24/18 16:30 Valproic Acid 11.8 ug/mL (50.0-100.0) L 06/25/18 08:18 RPR NONREACTIVE (NONREACTIVE) 06/24/18 17:03 - Physical Exam Vitals and I&O: Vital Signs Temp 97.6 F 07/07/18 06:25 Pulse 70 07/07/18 12:05 Resp 18 07/07/18 12:05 BP 119/66 07/07/18 08:48 Pulse Ox 96 07/07/18 12:05 Intake & Output 07/06/18 07/07/18 07/07/18 18:59 06:59 18:59 Intake Total 1800 240 Balance 1800 240 Intake: Oral 1800 240 Other: # Voids 4 1 # Bowel Movements 1 1 Active Medications: Current Medications Acetaminophen (Tylenol) 650 mg PO Q4HR PRN PRN Reason: Mild Pain / Temp above 100 Stop: 08/23/18 19:31 Acetaminophen/Hydrocodone Bitart ([place] 10 Mg/325 Mg) 1 tab PO Q4H PRN PRN Reason: Pain (Severe) Last Admin: 07/07/18 03:59 Dose: 1 tab Acetaminophen/Hydrocodone Bitart ([place] 5mg/325mg) 1 tab PO Q4H PRN PRN Reason: Pain (Moderate) Stop: 08/23/18 19:31 Last Admin: 07/07/18 12:57 Dose: 1 tab Albuterol Sulfate (Albuterol 2.5mg/3ml Neb Ud) 2.5 mg HHN Q6HRT [facility] Stop: 08/31/18 07:14 Last Admin: 07/07/18 12:04 Dose: 2.5 mg Amiodarone HCl (Cordarone) 200 mg PO BID [facility] Stop: 08/24/18 08:59 Last Admin: 07/07/18 08:35 Dose: 200 mg Amlodipine Besylate (Norvasc) 10 mg PO DAILY [facility] Stop: 08/31/18 08:59 Last Admin: 07/07/18 08:48 Dose: 10 mg Aspirin (Aspirin Chewable) 81 mg PO DAILY [facility] Stop: 08/24/18 08:59 Last Admin: 07/07/18 08:34 Dose: 81 mg Bisacodyl (Dulcolax 10 Mg Supp) 10 mg RC DAILY PRN PRN Reason: Constipation Stop: 08/23/18 19:31 Digoxin (Lanoxin) 0.25 mg PO DAILY [facility] Stop: 08/24/18 08:59 Last Admin: 07/07/18 08:34 Dose: 0.25 mg Escitalopram Oxalate (Lexapro) 20 mg PO DAILY [facility] Stop: 09/03/18 08:59 Last Admin: 07/07/18 08:34 Dose: 20 mg Insulin Aspart (Novolog Insulin Sliding Scale) 0 units SUBQ ACHS [facility]; Protocol Stop: 08/23/18 22:15 Last Admin: 07/07/18 12:57 Dose: 4 units Metformin HCl (Glucophage) 500 mg PO BIDWM [facility] Stop: 08/28/18 17:59 Last Admin: 07/07/18 08:36 Dose: 500 mg Nitrofurantoin Macrocrystals (Macrobid) 100 mg PO BID [facility]; Protocol Stop: 08/26/18 16:59 Last Admin: 07/07/18 08:34 Dose: 100 mg Nystatin (Nystop) 0 units TP DAILY [facility] Stop: 08/24/18 08:59 Last Admin: 07/06/18 16:59 Dose: 1 units Oxybutynin Chloride (Ditropan) 5 mg PO BID [facility] Stop: 08/24/18 08:59 Last Admin: 07/07/18 08:34 Dose: 5 mg Polyethylene Glycol (Miralax) 17 gm PO DAILY PRN PRN Reason: Constipation Stop: 08/23/18 19:31 Last Admin: 07/01/18 16:08 Dose: 17 gm Promethazine HCl/Codeine (Phenergan W/Cod Susp) 10 ml PO TID PRN PRN Reason: Cough Stop: 07/12/18 06:57 Quetiapine Fumarate 100 mg/ (Quetiapine Fumarate 50 mg) 150 mg PO HS [facility] Stop: 09/05/18 20:59 Rivaroxaban (Xarelto) 20 mg PO DAILY [facility] Stop: 08/26/18 13:29 Last Admin: 07/07/18 08:34 Dose: 20 mg Sitagliptin Phosphate (Januvia) 100 mg PO DAILY [facility] Stop: 08/24/18 08:59 Last Admin: 07/07/18 08:35 Dose: 100 mg Zolpidem Tartrate (Ambien) 10 mg PO HS PRN PRN Reason: Insomnia Stop: 08/23/18 19:31 Last Admin: 07/06/18 20:48 Dose: 10 mg General: demented, other (inpulsive, unpredictable ) HEENT: NC/AT Neck: Supple Lungs: CTAB Cardiovascular: RRR, Normal S1, Normal S2 Abdomen: soft, non-tender Extremities: clear Neurological: no change Internal Medicine Assmt/Plan - Assessment Assessment: Mood swings aggresive behaviour 5150 hold htn dm bipolar disease gerd h/o fib insomnia constipation depression - Plan Plan: METFORMIN ADDED MONITOR S/SX OF HYPO/HYPERGLYCEMIA CPM Nutritional Asmnt/Malnutr-PDOC - Dietary Evaluation Malnutrition Findings (Please click <Entered> for more info): Nutritional Asmnt/Malnutrition Start: 06/25/18 14: 31 Text: Status: Complete Freq: Protocol: Document 06/25/18 14:31 [email or web address] (Rec: 06/25/18 14:40 [email or web address]) Nutritional Asmnt/Malnutrition Patient General Information Nutritional Screening High Risk Consult Diagnosis psychosis nos Pertinent Medical Hx/Surgical Hx HTN, DM, arthritis of the knee , bipolar disorder, GERD, Afib , depression, anxiety, insomnia, constipation. depression, bipolar Subjective Information Consult recieved for diabetes. POC 400 on 06/24 noted. Pt was seen eating lunch in bed at time of visit. Lunch was seen eaten about 50%. Pt is alert but confused, unable to give DM education. Food preferences taken. Current Diet Order/ Nutrition Support low sodium 2gm, diabetic Pertinent Medications novolog, miralax, januvia, ambien Pertinent Labs 06/24 Na 134, alb 3.4, Triglycerides 397, POC 400 Nutritional Hx/Data Height 5 ft 6 in Height (Calculated Centimeters) 167.6 Current Weight (lbs) 305 lb Weight (Calculated Kilograms) 138.3 Weight (Calculated Grams) 660825.7 [place] Body Weight 130 Body Mass Index (BMI) 49.2 Weight Status Morbidly Obese GI Symptoms GI Symptoms None Last BM not indicated Difficult in: None Food Allergies No Skin Integrity/Comment: mitul Dubose Current %PO Fair (50-74%) Estimated Nutritional Goals BEE in Kcals: Using Current wt Adj wt of IBW Calories/Kcals/Kg 25-30 Kcals Calculated Protein: Adj wt of IBW Protein g/k Protein Calculated 78 Fluid: ml (1ml/kcal) Nutritional Problem 1. Problem Problem altered nutrition related labs Etiology hyperglycemia Signs/Symptoms: POC 400 Malnutrition Alert Is there a minimum of two criteria No selected? Query Text:Check all the applicable criteria. A minimum of two criteria are recommended for diagnosis of either severe or non-severe malnutrition. Malnutrition Related to Morbid Obesity Malnutrition related to morbid obesity No Intervention/Recommendation Comments 1. Continue with low sodium 2gm, CCHO diet as ordered. 2. MD to modify insulin regmen for optimal glycemic control 3. Monitor PO intake, wt, labs and skin integrity 4. F/U as moderate risk in 3-5 days Expected Outcomes/Goals Expected Outcomes/Goals 1. PO intake to meet at least 75% of nutritional needs. 2. Wt stability, skin to remain intact, labs to approach WNL. Reviewed by Kristi Zurita RD
[2018-07-07] MEDS: POLYETHYLENE GLYCOL 3350 17 GM PACK PO PRN (15:39)
--- NOTE | 2018-07-07 22:47 | Progress Notes ---
DATE: 07/07/2018 PSYCHIATRIC PROGRESS NOTE SUBJECTIVE: Chart reviewed and the patient interviewed. Also discussed the patient's condition with the staff and reviewed records and labs. The patient is still severely depressed and anxious. The patient also is complaining of coughing. The patient also feels hopeless and helpless. She also interacting minimally with others and at times wants to be left alone. Also showing lack of motivations. Otherwise, the patient is compliant with taking her medications with no side effects of medications. ASSESSMENT: The patient is still depressed and withdrawn, but no aggressive behavior. TREATMENT PLAN: Lexapro was increased to 20 mg every day. We will continue same dose. Also, continue adjusting psychotropic medications and work on her hopeless feeling and behavioral modification. Also, continue to work on discharge plans and placement issue. [facility] where the patient lived before refused to take her back. Jerica Ye interviewed the patient. Hopefully, they will accept her. JOB# [id number]
[2018-07-08] MEDS: Hydrocodone/APAP 5mg/325mg Tab PO PRN ×2 (03:18→13:00)
[2018-07-08] MEDS: INSULIN ASPART SLIDING SCALE 100 UNITS/ML UNIT SUBQ SCH ×2 (06:30→12:30)
[2018-07-08] MEDS: Albuterol Nebulizer 2.5mg/3mL HHN SCH ×2 (06:56→13:51)
[2018-07-08] MEDS: Aspirin 81mg Chewable Tab PO SCH (08:48)
[2018-07-08] MEDS: Hydrocodone/APAP 10 mg/325 mg Tab PO PRN (08:50)
[2018-07-08] MEDS: Multivitamin w/ Minerals Tab PO SCH (08:51)
[2018-07-08] MEDS: NYSTATIN 100000 UNITS/GM POWD TP SCH (08:52)
--- NOTE | 2018-07-09 03:20 | Discharge Summary ---
DATE OF DISCHARGE: 07/08/2018 PATIENT'S AGE: 67. SEX: Female. PHYSICIAN: Dr. Solomon. FINAL DIAGNOSIS/PRIMARY DIAGNOSIS: Major depression, moderate to severe, without psychotic features. REASON FOR HOSPITALIZATION: The patient was admitted to the hospital because of increased irritability and agitation in [facility]. She threw a cup of coffee towards other residents. HOSPITAL COURSE: The patient continued to be in angry and irritable mood and the patient was started on Seroquel. Actually, the patient started on Abilify that changed after that to Seroquel. The patient also was given Lexapro because of her depression. Gradually, the patient's affect was brighter. The patient was less irritable. The patient also seems to be more depressed than irritable and she has expressed remorse feeling about what she did in the [facility] with the roommate and she explained that her roommate was bothering her and was having the TV loud and she was asking her to lower it, but she did not listen to her. Placement was an issue. Finally, [facility] accepted the patient and the patient was discharged there. Physical exam of the patient showed obesity. The patient had no major medical problems while in the hospital. AFTER DISCHARGE PLANS: The patient discharged from the hospital to [facility] with plans for followup there. EXPECTED OUTCOME AFTER DISCHARGE: Fair if the patient continues his treatment and outpatient followup there. JOB# [id number]
== END 2018-07-08 17:10 | DRG 885 ==
LOC: ER 16:18 → GERO 18:59
PROVIDERS: ADMIT Psychiatry & Neurology Psychiatry; ATTEND Psychiatry & Neurology Psychiatry
DX: F32.2 Major depressive disorder, single episode, severe without psychotic features (principal); E11.65 Type 2 diabetes mellitus with hyperglycemia; Z68.42 Body mass index [BMI] 45.0-49.9, adult; N39.0 Urinary tract infection, site not specified; E87.1 Hypo-osmolality and hyponatremia; E11.9 Type 2 diabetes mellitus without complications; I10 Essential (primary) hypertension; K21.9 Gastro-esophageal reflux disease without esophagitis; I48.91 Unspecified atrial fibrillation; M17.10 Unilateral primary osteoarthritis, unspecified knee; F41.9 Anxiety disorder, unspecified; B35.4 Tinea corporis; G47.00 Insomnia, unspecified; K59.00 Constipation, unspecified; E66.9 Obesity, unspecified; Z88.0 Allergy status to penicillin; Z87.440 Personal history of urinary (tract) infections; Z82.49 Family history of ischemic heart disease and other diseases of the circulatory system
CPT/HCPCS: 36415-UA; 71045-TC; 80053-TC; 80061-TC; 80164-TC; 81001-TC; 82948-90; 83036-90; 84443-TC; 85025-TC; 86592-TC; 87086-90; 93005; 94640; 94760; J1815; J7613; Z7610

== ENCOUNTER 2018-10-10 12:53 | Inpatient (IN) | payer MEDICARE, BC ==
--- NOTE | 2018-10-10 13:05 | ED Physician Chart ---
ED Chief Complaint/HPI - Patient Information Date Seen:: 10/10/18 Time Seen:: 13:00 Chief Complaint:: refusal of care History of Present Illness:: 68 yr old female with dm afib bipolar disorder copd htn osteo athritus Allergies:: Allergies Allergy/AdvReac Type Severity Reaction Status Date / Time Penicillins Allergy Verified 10/10/18 12:58 ED Review of Systems - Review of Systems General/Constitutional: No fever Skin: Skin lesions Head: Headache Eyes: No loss of vision ENT: No earache Neck: No neck pain Cardio Vascular: No chest pain Pulmonary: No SOB GI: No nausea, No vomiting G/U: No dysuria Musculoskeletal: Bone or joint pain, Other (rt knee pain) Endocrine: No polyuria Psychiatric: Depression Hematopoietic: No bruising Allergic/Immuno: No urticaria Neurological: No syncope ED Past Medical History - Past Medical History Past Medical History: HTN, DM, Asthma/COPD, Arthritis, Other (afib ,knee and rt shoulder surgery csection ) Family Medical History - Family Member Mother History Unknown: Yes Ethnicity: Unknown Living Status: Unknown Hx Family Cancer: No Hx Family Coronary Artery Disease: No Hx Family Congestive Heart Failure: No Hx Family Hypertension: No Hx Family Stroke: No Hx Family Diabetes: No Hx Family Dementia: No Hx Family AIDS: No Hx Family COPD: No Hx Family Psychiatric Problems: No Hx Family Tuberculosis: No ED Septic Shock - . Is Septic Shock (SBP<90, OR Lactate>4 mmol\L) present?: No ED Reassessment (Disposition) - Reassessment Reassessment:: refusing care on 5150 hold - Patient Disposition Discharge/Transfer:: Acute Care w/in this hosp Admitted to:: Med/Surg Condition at Disposition:: Stable
[2018-10-10 13:15] LABS: % MONOCYTES 7.6 % (2.0-10.0); EOSINOPHILE ABSOLUTE 0.1 Th/cmm (0.1-0.4); MONOCYTE ABSOLUTE 0.5 Th/cmm (0.3-1.0)
[2018-10-10 13:17] LABS: % BASOPHILS 0.7 % (0.0-2.0); % EOSINOPHILS 1.3 % (0.0-5.0); % LYMPHOCYTES 18.6 % (20.0-50.0); % NEUTROPHILS 71.8 % (40.0-80.0); HEMATOCRIT 29.9 % (41.0-60); HEMOGLOBIN 9.9 gm/dL (12-16); LYMPHOCYTE ABSOLUTE 1.3 Th/cmm (1.5-3.0); MEAN CELL VOLUME 74.6 fl (81-100); MEAN CORPUSCULAR HEMOGLOBIN 24.6 pg (27.0-31.0); NEUTROPHILE ABSOLUTE 5.1 Th/cmm (1.8-8.0); PLATELET COUNT 273 Th/cmm (150-400); RED CELL DISTRIBUTION WIDTH 14.6 % (11.5-20.0)
[2018-10-10 13:32] LABS: ALB/GLOB RATIO 1.4 (1.0-1.8); ALBUMIN 3.7 gm/dL (3.7-5.3); ALKALINE PHOSPHATASE 87 U/L (34-104); BILIRUBIN,TOTAL 0.3 mg/dL (0.3-1.0); BUN - UREA NITROGEN 16 mg/dL (7-25); CARBON DIOXIDE 24.9 mEq/L (21.0-31.0); CHLORIDE 104 mEq/L (98-107); GFR AFRICAN-AMERICAN > 60.0 ml/min (>90); GFR NON AFRICAN-AMERICAN 58.8 ml/min; GLUCOSE 270 mg/dL (70-105); POTASSIUM SERUM 3.9 mEq/L (3.5-5.1); SGOT 19 U/L (13-39); SGPT/ALT 17 U/L (7-52); SODIUM SERUM 137 mEq/L (136-145); TOTAL PROTEIN,SERUM 6.3 gm/dL (6.0-8.3)
[2018-10-10 13:43] LABS: URINE SOURCE CLEAN C
[2018-10-10 15:01] LABS: URINE BILIRUBIN NEGATIVE (NEGATIVE); URINE BLOOD NEGATIVE (NEGATIVE); URINE CLARITY CLEAR (CLEAR); URINE COLOR YELLOW; URINE GLUCOSE (UA) NEGATIVE (NEGATIVE); URINE KETONE NEGATIVE (NEGATIVE); URINE LEUKOCYTE ESTERASE NEGATIVE (NEGATIVE); URINE MICROSCOPIC INDICATED? YES; URINE NITRATE NEGATIVE (NEGATIVE); URINE PH 5.5 (4.6 - 8.0); URINE PROTEIN NEGATIVE (NEGATIVE); URINE UROBILINOGEN 0.2 E.U./dL (0.2 - 1.0)
[2018-10-10 15:03] LABS: URINE BACTERIA FEW /hpf (NONE SEEN); URINE EPITHELIAL CELLS MODERATE /lpf (FEW); URINE RBC 0-2 /hpf (0-5)
[2018-10-10 16:48] VITALS: BP 132/52
[2018-10-10] MEDS: APAP/Oxycodone 5/325mg Tab PO PRN (20:03)
[2018-10-11] MEDS: APAP/Oxycodone 5/325mg Tab PO PRN ×3 (06:33→15:35)
[2018-10-11 08:08] LABS: A1C 7.2 % (4.8-5.6)
[2018-10-11] MEDS: Multivitamin w/ Minerals Tab PO SCH (09:13)
[2018-10-11] MEDS: Pantoprazole 40 mg/Packet PO SCH (09:13)
[2018-10-11] MEDS: Aspirin 81mg Chewable Tab PO SCH (09:13)
--- NOTE | 2018-10-11 09:56 | History and Physical ---
History of Present Illness - HPI Chief Complaint: 68 y/o female patient was brought into Emergency room due to Patient refusing care. HPI: 68 y/o female patient was admitted to [facility] due to Patient refusing care. Patient has history of Diabetes, Afib, Bipolar disorder, Copd, Hypertension and Osteoarthritis. Patient had an ER assessment and a complete workup was done. Patient was put on a 5150 Hold due to her refusing care. Patient will have a Psych consult and I will follow, treat and monitor patient. Patient will continue current treatment plan as ordered. 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: Report: Other (Bipolar disorder.Depression and Bipolar disorder.) GI: Report: No Pertinent Hx Psych: Report: Bipolar, Depression Musculoskeletal: Report: Osteoarthritis Infectious Disease: Report: No Pertinent Hx Renal/: Report: No Pertinent Hx Endocrine: Report: Diabetes Dermatology: Report: No Pertinent Hx - Past Surgical History Past Surgical History: , Other (Knee and rt shoulder surgery.) Family Medical History - Family Member Mother History Unknown: Yes Ethnicity: Unknown Living Status: Unknown Hx Family Cancer: No Hx Family Coronary Artery Disease: No Hx Family Congestive Heart Failure: No Hx Family Hypertension: No Hx Family Stroke: No Hx Family Diabetes: No Hx Family Dementia: No Hx Family AIDS: No Hx Family COPD: No Hx Family Psychiatric Problems: No Hx Family Tuberculosis: No Father History Unknown: Yes Ethnicity: Unknown Living Status: Unknown Hx Family Cancer: (unknown) Hx Family Coronary Artery Disease: (unknown) Hx Family Congestive Heart Failure: (unknown) Hx Family Hypertension: (unknown) Hx Family Stroke: (unknown) Hx Family Diabetes: (unknown) Hx Family Seizures: (unknown) Hx Family Dementia: (unknown) Hx Family AIDS: (unknown) Hx Family COPD: (unknown) Hx Family Hepatitis: (unknown) Hx Family Psychiatric Problems: (unknown) Hx Family Tuberculosis: (unknown) Social History Smoke: No Alcohol: None Drugs: None Lives: [place] Domestic Violence: Negative Health Maintenance Health Maintenance: Other (see chart.) - Medications Home Medications: Home Medication Medication Instructions Recorded Type Acetaminophen [Tylenol] 650 mg PO Q4HR PRN tab 03/27/17 Rx Amiodarone [Cordarone] 200 mg PO BID tab 07/08/18 Rx Aspirin [Aspirin Chewable] 81 mg PO DAILY ctb 07/08/18 Rx Bisacodyl [Dulcolax 10 Mg Supp] 10 mg RC DAILY PRN sup 07/08/18 Rx Digoxin [Lanoxin] 0.25 mg PO DAILY tab 07/08/18 Rx Escitalopram Oxalate [Lexapro] 20 mg PO DAILY tab 07/08/18 Rx Multivitamin w/ Minerals 1 tab PO DAILY tab 07/08/18 Rx [Theragran M] Polyethylene Glycol 3350 [Miralax] 17 gm PO DAILY PRN pack 07/08/18 Rx Rivaroxaban [Xarelto] 20 mg PO DAILY tab 07/08/18 Rx Sitagliptin [Januvia] 100 mg PO DAILY tab 07/08/18 Rx Zolpidem Tartrate [Ambien] 10 mg PO HS PRN tab 07/08/18 Rx amLODIPine Besylate [Norvasc*] 10 mg PO DAILY tab 07/08/18 Rx metFORMIN [Glucophage] 500 mg PO BIDWM tab 07/08/18 Rx Ascorbic Acid [Vitamin C] 500 mg PO DAILY 10/10/18 History Cranberry Fruit Concentrate 450 mg PO DAILY 10/10/18 History [Cranberry] Docusate Sodium [Colace] 100 mg PO BID 10/10/18 History Insulin Aspart Sliding Scale See Protocol SUBQ ACHS 10/10/18 History [NovoLOG INSULIN SLIDING SCALE] Oxybutynin Chloride [Ditropan*] 5 mg PO DAILY 10/10/18 History Oxycodone HCl/Acetaminophen 1 tab PO Q4H PRN 10/10/18 History [Percocet 325 mg-5 mg*] Pantoprazole [Protonix] 40 mg PO QDAC 10/10/18 History QUEtiapine Fumarate [SEROquel] 125 mg PO HS 10/10/18 History Sennosides A and B [Senna] 8.6 mg PO HS 10/10/18 History cloNIDine HCl [Catapres] 0.1 mg PO Q6H PRN 10/10/18 History Other Medications: Please see medication reconciliation sheet. - Allergies Allergies/Adverse Reactions: Allergies Allergy/AdvReac Type Severity Reaction Status Date / Time Penicillins Allergy Verified 10/10/18 12:58 Review of Systems - Review of Systems Review of Systems: 68 y/o patient is non-compliant and was refusing care when put on 5150 Hold. Constitutional: Report: No Significant Eyes: Report: No Significant ENT: Report: No Significant Respiratory: Report: No Significant Cardiovascular: Report: No Significant, Other (hx of Afib.) Gastrointestinal: Report: No Significant Genitourinary: Report: No Significant Musculoskeletal: Report: Other (OA.) Skin: Report: Lesions Neurological: Report: Other (Depressed mood.) Physical Exam - Physical Exam HEENT: Report: Ears Nose Throat within normal limits Neck: Report: Within normal limits Cardiovascular Systems: Report: +s1/s2 noted, Regular, Rate and Rhythm Respiratory: Report: Breath Sounds are within normal limits Abdomen: Report: Non-tender to palpation Back: Report: Inspection of back is within normal limits. Extremities: Report: Non-tender to palpation. Skin: Report: Other (skin lesions noted.) Neuro/Psych: Report: Depressed affect - Lab Results All Lab Results last 24 hours: Laboratory Results - last 24 hr 10/10/18 10/10/18 10/10/18 13:08 13:08 13:34 WBC 7.0 RBC 4.00 Hgb 9.9 L Hct 29.9 L MCV 74.6 L MCH 24.6 L MCHC Differential 33.0 RDW 14.6 Plt Count 273 MPV 6.4 Neutrophils % 71.8 Lymphocytes % 18.6 L Monocytes % 7.6 Eosinophils % 1.3 Basophils % 0.7 Sodium 137 Potassium 3.9 Chloride 104 Carbon Dioxide 24.9 Anion Gap 12.0 BUN 16 Creatinine 1.0 Est GFR ( Amer) > 60.0 Est GFR (Non-Af Amer) 58.8 BUN/Creatinine Ratio 16.0 Glucose 270 H Calcium 9.0 Total Bilirubin 0.3 AST 19 ALT 17 Alkaline Phosphatase 87 Total Protein 6.3 Albumin 3.7 Globulin 2.6 Albumin/Globulin Ratio 1.4 Urine Source CLEAN C Urine Color YELLOW Urine Clarity CLEAR Urine pH 5.5 Ur Specific [place] 1.025 Urine Protein NEGATIVE Urine Glucose (UA) NEGATIVE Urine Ketones NEGATIVE Urine Blood NEGATIVE Urine Nitrate NEGATIVE Urine Bilirubin NEGATIVE Urine Urobilinogen 0.2 Ur Leukocyte Esterase NEGATIVE Urine RBC 0-2 Urine WBC 2-5 Ur Epithelial Cells MODERATE Urine Bacteria FEW - Assessment Assessment: Refusing Care 5150 Hold. Diabetes. Afib. Bipolar disorder. Copd. Hypertension. Osteoarthritis. - Plan Plan: Continuation of care. Psych consult. Monitor Labs. Continue present meds as directed. Monitor Diet/Nutritional support. Pain Management. Physical therapy. Occupational therapy. Safety precaution. Supportive care. Fall precaution, frequent nursing rounds, and as needed restraints to prevent fall. Continue collaborating with consulting specialists, case management and nursing team. Will Monitor patient and continue current treatment plan as ordered.
--- NOTE | 2018-10-11 10:06 | History & Physical ---
ADMIT DATE: 10/10/2018 HISTORY OF PRESENT ILLNESS: The patient is very well known to me. The patient is known to have history of hypertension, history of severe arthritis. The patient had total knee replacement. The patient had underlying osteoarthritis and severe atrial fibrillation and bipolar disorder. Basically, she was very agitated. She lives in [facility], 5150 was hold and the patient came to the Emergency Room, was cleared and was admitted to the [facility]. PAST MEDICAL HISTORY: As enumerated before, history of hypertension, diabetes, asthma, COPD, arthritis, atrial fibrillation. PHYSICAL EXAMINATION: HEAD: Normal. ENT: Normal. NECK: Supple, nontender. LUNGS: Clear. CARDIOVASCULAR SYSTEM: S1, S2 heard. ABDOMEN: Soft. Bowel sounds are heard. CENTRAL NERVOUS SYSTEM: Grossly normal. DIAGNOSES: Acute agitation, acute psychosis, history of bipolar disorder, history of hypertension, diabetes, history of asthma, chronic obstructive pulmonary disease, arthritis, status post knee surgery, history of atrial fibrillation and I will follow medically. [facility]# [id number]
[2018-10-11] MEDS ORDERED: GLUCAGON HCl 1 MG KIT IM PRN (10:25)
[2018-10-11] MEDS ORDERED: Dextrose 50% 50 mL Abboject IVP PRN (10:25)
[2018-10-11] MEDS: INSULIN LISPRO SLIDING SCALE 100 UNITS/ML UNIT SUBQ SCH ×3 (11:38→20:16)
--- NOTE | 2018-10-12 00:06 | Psychiatric Evaluation ---
DATE OF SERVICE: 10/10/2018 INITIAL EVALUATION AND MENTAL STATUS EXAM AGE: 68. SEX: Female. PHYSICIAN: Arazna Solomon MD, MPH CHIEF COMPLAINT: Uncooperative with staff and 5150 hold for instability. HISTORY OF PRESENT ILLNESS: The patient is a 68-year-old female with history of bipolar disorder. The patient resides in [facility]. The patient had knee surgery several weeks ago. I was called to evaluate the patient in the nursing facility 2 days ago because the patient is uncooperative with her treatment. The patient refuses to go to rehabilitation room and she wants to do it in bed. The patient also refusing to shower. To look on to that, she started to have some ulcers in her back and staff was concerned about developing big sores and also about getting infection, but the patient still refused to do so in spite of explaining to her myself the importance to taking shower and about ulcers that also started to have in her back. The patient also has been refusing to take her fingerstick to check her blood sugar once a day in spite of staff asking her to do 2 times a day. She also has not been eating residential food, has been calling for pizza from outside, which increases her blood sugar and is against her diet. I explained to the patient 2 days prior to her admission about following the instructions and she said that she is going to do so. On the day of admission, I evaluated the patient again because she was not following any of the instructions and staff was concerned about her safety and about the possibility of deterioration of her condition and the patient was placed on hold and transferred to the hospital on 5150 hold for grave disability. The patient is angry and upset for not being in the nursing facility. I explained to the patient the importance of following instructions and rehabilitation for the recovery of her may that she need to have physical therapy and also for prevention of infections, but she has difficult time understanding that. PAST PSYCHIATRIC HISTORY: The patient has history of ____ bipolar disorder and the patient is taking Lexapro and Seroquel. PAST MEDICAL HISTORY: The patient has recent knee surgery. SOCIAL HISTORY: The patient was living in [facility]. No known alcohol or drug use. ALLERGIES: No known allergies. MENTAL STATUS EXAM: The patient appears her stated age, cooperative, anxious, gets angry and irritable easily. The patient is having difficulty understanding the explanation of the importance of the treatment and that she should follow, but she is still argumentative. The patient denies any auditory or visual hallucinations and she denies any thoughts of suicide or homicide. The patient is alert and oriented to time, place, person, and situation. Intact immediate, recent and remote memories. Poor insight. Poor judgment. Seems to be of average intelligence. The patient has verbal ability. ASSESSMENT: PRIMARY DIAGNOSIS: Bipolar disorder, depressed episode, severe, with psychotic features. MEDICAL DIAGNOSES: Status post knee surgery. Early phase of back bedsores. TREATMENT PLAN: We will continue her current medications. We will work on her compliance and physical therapy and also try to get her to comply following the instructions for her recovery and to prevent any infections. ESTIMATED LENGTH OF STAY: 5 to 7 days. PATIENT'S STRENGTHS AND WEAKNESSES: The patient's strength is that she is taking her medications. Weakness is that she is uncooperative with the procedures of her recovery and treatment and has poor insight. AFTERDISCHARGE PLAN: The patient to return to [place] and outpatient treatment and followup there. CRITERIA FOR DISCHARGE: The patient will be more cooperative and will stabilize her condition. JOB# [id number]
[2018-10-12] MEDS: INSULIN LISPRO SLIDING SCALE 100 UNITS/ML UNIT SUBQ SCH ×4 (06:43→21:08)
[2018-10-12] MEDS: Pantoprazole 40 mg/Packet PO SCH (08:34)
[2018-10-12] MEDS: Multivitamin w/ Minerals Tab PO SCH (08:35)
[2018-10-12] MEDS: Aspirin 81mg Chewable Tab PO SCH (08:39)
[2018-10-12] MEDS: APAP/Oxycodone 5/325mg Tab PO PRN ×4 (08:43→22:33)
--- NOTE | 2018-10-12 14:27 | Progress Notes ---
DATE: 10/12/2018 SUBJECTIVE: The patient is currently in the hospital, currently on hold, history of bipolar disorder, residing in [facility]. The patient was uncooperative with treatment, not going to rehab, unruly, refusing to shower. Also, there is not moving and generally decompensating and not eating and doing things that were against her best interest and health and seems to be deteriorating. Apparently, this patient is well known to Dr. Solomon so he decided to bring the patient over to the hospital for ongoing care. The patient does not really know why she is here, somewhat guarded and suspicious of others, mostly keeping to herself wanted to go back to the residential as soon as possible, poor historian. MEDICATIONS: Noted. PLAN: We will continue to monitor ongoing concerns about compliance, unruly behaviors, paranoid and suspicious behaviors of others. We will continue to monitor and adjust medications. [facility]# [id number]
--- NOTE | 2018-10-12 23:14 | Internal Medicine Prog Note ---
Internal Medicine Subjective - Subjective Service Date: 10/12/18 Patient seen and examined:: with staff Patient is:: awake, agitated, other (Resisting care.) Patient Complaints of:: other (pressure sores of back- Patient is not allowing local skin care.) Per staff patient has:: no episodes of fall, noncompliant, refusing care Internal Medicine Objective - Results Result Diagrams: 10/10/18 13:08 10/10/18 13:08 Recent Labs: Laboratory Last Values WBC 7.0 Th/cmm (4.8-10.8) 10/10/18 13:08 RBC 4.00 Mil/cmm (3.80-5.20) 10/10/18 13:08 Hgb 9.9 gm/dL (12-16) L 10/10/18 13:08 Hct 29.9 % (41.0-60) L 10/10/18 13:08 MCV 74.6 fl (81-100) L 10/10/18 13:08 MCH 24.6 pg (27.0-31.0) L 10/10/18 13:08 MCHC Differential 33.0 pg (28.0-36.0) 10/10/18 13:08 RDW 14.6 % (11.5-20.0) 10/10/18 13:08 Plt Count 273 Th/cmm (150-400) 10/10/18 13:08 MPV 6.4 fl 10/10/18 13:08 Neutrophils % 71.8 % (40.0-80.0) 10/10/18 13:08 Lymphocytes % 18.6 % (20.0-50.0) L 10/10/18 13:08 Monocytes % 7.6 % (2.0-10.0) 10/10/18 13:08 Eosinophils % 1.3 % (0.0-5.0) 10/10/18 13:08 Basophils % 0.7 % (0.0-2.0) 10/10/18 13:08 Sodium 137 mEq/L (136-145) 10/10/18 13:08 Potassium 3.9 mEq/L (3.5-5.1) 10/10/18 13:08 Chloride 104 mEq/L (98-107) 10/10/18 13:08 Carbon Dioxide 24.9 mEq/L (21.0-31.0) 10/10/18 13:08 Anion Gap 12.0 (7.0-16.0) 10/10/18 13:08 BUN 16 mg/dL (7-25) 10/10/18 13:08 Creatinine 1.0 mg/dL (0.6-1.2) 10/10/18 13:08 Est GFR ( Amer) > 60.0 ml/min (>90) 10/10/18 13:08 Est GFR (Non-Af Amer) 58.8 ml/min 10/10/18 13:08 BUN/Creatinine Ratio 16.0 10/10/18 13:08 Glucose 270 mg/dL (70-105) H 10/10/18 13:08 POC Glucose 194 MG/DL (70 - 105) H 10/12/18 11:29 Calcium 9.0 mg/dL (8.6-10.3) 10/10/18 13:08 Total Bilirubin 0.3 mg/dL (0.3-1.0) 10/10/18 13:08 AST 19 U/L (13-39) 10/10/18 13:08 ALT 17 U/L (7-52) 10/10/18 13:08 Alkaline Phosphatase 87 U/L (34-104) 10/10/18 13:08 Total Protein 6.3 gm/dL (6.0-8.3) 10/10/18 13:08 Albumin 3.7 gm/dL (3.7-5.3) 10/10/18 13:08 Globulin 2.6 gm/dL 10/10/18 13:08 Albumin/Globulin Ratio 1.4 (1.0-1.8) 10/10/18 13:08 Urine Source CLEAN C 10/10/18 13:34 Urine Color YELLOW 10/10/18 13:34 Urine Clarity CLEAR (CLEAR) 10/10/18 13:34 Urine pH 5.5 (4.6 - 8.0) 10/10/18 13:34 Ur Specific [place] 1.025 (1.005-1.030) 10/10/18 13:34 Urine Protein NEGATIVE mg/dL (NEGATIVE) 10/10/18 13:34 Urine Glucose (UA) NEGATIVE mg/dL (NEGATIVE) 10/10/18 13:34 Urine Ketones NEGATIVE mg/dL (NEGATIVE) 10/10/18 13:34 Urine Blood NEGATIVE (NEGATIVE) 10/10/18 13:34 Urine Nitrate NEGATIVE (NEGATIVE) 10/10/18 13:34 Urine Bilirubin NEGATIVE (NEGATIVE) 10/10/18 13:34 Urine Urobilinogen 0.2 E.U./dL (0.2 - 1.0) 10/10/18 13:34 Ur Leukocyte Esterase NEGATIVE (NEGATIVE) 10/10/18 13:34 Urine RBC 0-2 /hpf (0-5) 10/10/18 13:34 Urine WBC 2-5 /hpf (0-5) 10/10/18 13:34 Ur Epithelial Cells MODERATE /lpf (FEW) 10/10/18 13:34 Urine Bacteria FEW /hpf (NONE SEEN) 10/10/18 13:34 - Physical Exam Vitals and I&O: Vital Signs Temp 98.0 F 10/12/18 19:33 Pulse 60 10/12/18 19:33 Resp 19 10/12/18 19:33 BP 128/63 10/12/18 19:33 Pulse Ox 95 10/12/18 19:33 Intake & Output 10/12/18 10/12/18 10/13/18 06:59 18:59 06:59 Intake Total 520 1800 240 Balance 520 1800 240 Intake: Oral 520 1800 240 Other: # Voids 2 4 2 # Bowel Movements 0 0 Active Medications: Current Medications Acetaminophen (Tylenol) 650 mg PO Q4HR PRN PRN Reason: Mild Pain / Temp above 100 Stop: 12/09/18 19:59 Amiodarone HCl (Cordarone) 200 mg PO BID [facility] Stop: 12/10/18 08:59 Last Admin: 10/12/18 16:34 Dose: 200 mg Amlodipine Besylate (Norvasc) 10 mg PO DAILY [facility] Stop: 12/10/18 08:59 Last Admin: 10/12/18 09:41 Dose: 10 mg Ascorbic Acid (Vitamin C) 500 mg PO DAILY [facility] Stop: 12/10/18 08:59 Last Admin: 10/12/18 08:34 Dose: 500 mg Aspirin (Aspirin Chewable) 81 mg PO DAILY [facility] Stop: 12/10/18 08:59 Last Admin: 10/12/18 08:39 Dose: 81 mg Dextrose (D50w) 50 ml IVP PRN PRN PRN Reason: BS below 70&not tolerate po Stop: 12/10/18 10:24 Dextrose (Glutose 40%) 18.75 gm PO PRN PRN PRN Reason: BS below 70 & tolerate po Stop: 12/10/18 10:24 Digoxin (Lanoxin) 0.25 mg PO DAILY [facility] Stop: 12/10/18 08:59 Last Admin: 10/12/18 08:39 Dose: 0.25 mg Docusate Sodium (Colace) 100 mg PO BID [facility]AS[facility] Stop: 12/10/18 08:59 Last Admin: 10/12/18 16:34 Dose: 100 mg Escitalopram Oxalate (Lexapro) 20 mg PO DAILY [facility]; Protocol Stop: 12/10/18 08:59 Last Admin: 10/12/18 08:35 Dose: 20 mg Glucagon (Glucagen) 1 mg IM PRN PRN PRN Reason: BS below 70&dextrose ineffecti Stop: 12/10/18 10:24 Insulin Human Lispro (Humalog Insulin Sliding Scale) 0 units SUBQ ACHS [facility]; Protocol Stop: 12/10/18 11:29 Last Admin: 10/12/18 21:08 Dose: 2 units Lorazepam (Ativan) 0.5 mg PO Q4H PRN; Protocol PRN Reason: Anxiety Stop: 12/09/18 19:59 Metformin HCl (Glucophage) 500 mg PO BIDWM [facility] Stop: 12/10/18 07:59 Last Admin: 10/12/18 17:58 Dose: 500 mg Mupirocin (Bactroban Oint) 1 appl NS BID [facility] Stop: 10/17/18 09:01 Last Admin: 10/12/18 17:57 Dose: 1 appl Oxybutynin Chloride (Ditropan) 5 mg PO DAILY [facility] Stop: 12/10/18 08:59 Last Admin: 10/12/18 08:35 Dose: 5 mg Oxycodone/Acetaminophen (Percocet 5/325mg Oral Tab) 1 tab PO Q4H PRN PRN Reason: pain Stop: 12/09/18 19:39 Last Admin: 10/12/18 22:33 Dose: 1 tab Pantoprazole Sodium (Protonix) 40 mg PO DAILY [facility] Stop: 12/10/18 08:59 Last Admin: 10/12/18 08:34 Dose: 40 mg Quetiapine Fumarate 100 mg/ (Quetiapine Fumarate 25 mg) 125 mg PO HS [facility]AS[facility] Stop: 12/09/18 22:59 Last Admin: 10/12/18 21:11 Dose: 125 mg Rivaroxaban (Xarelto) 20 mg PO DAILY [facility] Stop: 12/10/18 08:59 Last Admin: 10/12/18 08:36 Dose: 20 mg Senna (Senna) 8.6 mg PO DAILY [facility] Stop: 12/10/18 08:59 Last Admin: 10/12/18 08:42 Dose: 8.6 mg Sitagliptin Phosphate (Januvia) 100 mg PO QDAC [facility] Stop: 12/10/18 07:29 Last Admin: 10/12/18 06:51 Dose: 100 mg Zolpidem Tartrate (Ambien) 5 mg PO HS PRN PRN Reason: Insomnia Stop: 12/09/18 18:50 Last Admin: 10/12/18 21:11 Dose: 5 mg Physical Exam: 68 y/o patient is gravely disabled and continues to refuse local skin care as well as care. General: lethargic HEENT: NC/AT, PERRLA Neck: Supple, No JVD Lungs: CTAB Cardiovascular: RRR, Normal S1 Abdomen: soft, non-tender Extremities: other (back sores.) Neurological: no change, unsteady Internal Medicine Assmt/Plan - Assessment Assessment: Refusing Care 5150 Hold. Diabetes. Afib. Bipolar disorder. Copd. Hypertension. Osteoarthritis. Pressure sores. - Plan Plan: Continuation of care. Psych followup/management. Monitor Labs. Continue present meds as directed. Monitor Diet/Nutritional support. Local skin care and wound care. Pain Management. Physical therapy. Occupational therapy. Safety precaution. Supportive care. Fall precaution, frequent nursing rounds, and as needed restraints to prevent fall. Continue collaborating with consulting specialists, case management and nursing team. Will Monitor patient and continue current treatment plan as ordered. Nutritional Asmnt/Malnutr-PDOC - Dietary Evaluation Malnutrition Findings (Please click <Entered> for more info): Nutritional Asmnt/Malnutrition Start: 10/11/18 14: 22 Text: Status: Complete Freq: Protocol: Document 10/11/18 14:22 DILAN (Rec: 10/11/18 14:31 DILAN [email or web address]) Nutritional Asmnt/Malnutrition Patient General Information Nutritional Screening High Risk Diagnosis psychosis Pertinent Medical Hx/Surgical Hx HTN, DM, asthma/COPD, arthritis, afib, knee and rt shoulder surger, csection Subjective Information Pt seen eating lunch in bed at time of visit. Food preference provided to RD. Pt asked for real sugar. Explained to pt that she is on [facility] diet and the benifits for diabetes. Pt stated her blood sugar is fine. Glucose 270 at admission noted. Pt appeared not interested in diabetic education. Per EMR, pt consumed 50% of breakfast today. Current Diet Order/ Nutrition Support [facility] Pertinent Medications vit C, colace, glucophage, protonix, senna, januvia Pertinent Labs 10/10 glucose 270 Nutritional Hx/Data Height 1.68 m Height (Calculated Centimeters) 167.6 Current Weight (lbs) 113.398 kg Weight (Calculated Kilograms) 113.4 Weight (Calculated Grams) 223014.1 [place] Body Weight 130 Body Mass Index (BMI) 40.3 Weight Status Morbidly Obese GI Symptoms GI Symptoms None Last BM none Difficult in: None Skin Integrity/Comment: RT. knee surgery scar,redness to coccyx area mitul 15 Estimated Nutritional Goals BEE in Kcals: Adj wt of IBW Calories/Kcals/Kg 25-30 Kcals Calculated 9910-2898 Protein: Adj wt of IBW Protein g/k Protein Calculated 73 Fluid: ml 1825-2190ml (1ml/kcal) Nutritional Problem 1. Problem Problem altered nutrition related labs Etiology hyperglycemia Signs/Symptoms: gluocse 270 at admission Malnutrition Alert Is there a minimum of two criteria No selected? Query Text:Check all the applicable criteria. A minimum of two criteria are recommended for diagnosis of either severe or non-severe malnutrition. Malnutrition Related to Morbid Obesity Malnutrition related to morbid obesity No Intervention/Recommendation Comments 1. Continue with [facility] diet as ordered. Diet preference updated. 2. Monitor PO intake, wt, labs and skin integrity 3. F/U as low risk in 7 days Expected Outcomes/Goals Expected Outcomes/Goals 1. PO intake to meet at least 75% of nutritional needs. 2. Wt stability, skin to remain intact, labs to approach WNL.
[2018-10-13] MEDS: APAP/Oxycodone 5/325mg Tab PO PRN ×3 (06:13→15:05)
[2018-10-13] MEDS: INSULIN LISPRO SLIDING SCALE 100 UNITS/ML UNIT SUBQ SCH ×4 (06:47→20:26)
[2018-10-13] MEDS: Pantoprazole 40 mg/Packet PO SCH (09:01)
[2018-10-13] MEDS: Aspirin 81mg Chewable Tab PO SCH (09:02)
[2018-10-13] MEDS: Multivitamin w/ Minerals Tab PO SCH (09:02)
--- NOTE | 2018-10-13 09:32 | Progress Notes ---
DATE: 10/13/2018 SUBJECTIVE: Chart reviewed and the patient interviewed. Also discussed the patient's condition with the staff and reviewed records and labs. The patient is still resisting care. According to the staff, the patient is still giving them hard time in regard to clean her or change her in spite of having sores in her back and in spite of recent knee surgery and the patient might get infected. Also, according to staff, the patient is focused on pain medications. The patient is still demanding and she is asking to be discharged back to [facility], but at the same time, the patient is exhibiting same behavior with no changes and I am not sure if [facility] will take her with same behavior and inability to care for self. She is not helping staff to clean her up or to change her diapers and takes long time and at the end she might agree and might not. ASSESSMENT: The patient is still considered to be gravely disabled. TREATMENT PLAN: Continue to monitor her behavior and her condition and will place the patient on 5250 hold. Also, continue to work with the patient in regard to being more cooperative with the staff, especially that her infection in the back can be changed to stage 2 or 3. JOB# [id number]
--- NOTE | 2018-10-13 12:00 | Internal Medicine Prog Note ---
Internal Medicine Subjective - Subjective Service Date: 10/13/18 Patient seen and examined:: with staff, chart reviewed Patient is:: awake, verbal, confused, other (hx of recent knee surgery.) Patient Complaints of:: other (Gravely disabled.) Per staff patient has:: no adverse event, no episodes of fall, other (sores are present on patent's back and she refuses to recieve local skin care.) Internal Medicine Objective - Results Result Diagrams: 10/10/18 13:08 10/10/18 13:08 Recent Labs: Laboratory Last Values WBC 7.0 Th/cmm (4.8-10.8) 10/10/18 13:08 RBC 4.00 Mil/cmm (3.80-5.20) 10/10/18 13:08 Hgb 9.9 gm/dL (12-16) L 10/10/18 13:08 Hct 29.9 % (41.0-60) L 10/10/18 13:08 MCV 74.6 fl (81-100) L 10/10/18 13:08 MCH 24.6 pg (27.0-31.0) L 10/10/18 13:08 MCHC Differential 33.0 pg (28.0-36.0) 10/10/18 13:08 RDW 14.6 % (11.5-20.0) 10/10/18 13:08 Plt Count 273 Th/cmm (150-400) 10/10/18 13:08 MPV 6.4 fl 10/10/18 13:08 Neutrophils % 71.8 % (40.0-80.0) 10/10/18 13:08 Lymphocytes % 18.6 % (20.0-50.0) L 10/10/18 13:08 Monocytes % 7.6 % (2.0-10.0) 10/10/18 13:08 Eosinophils % 1.3 % (0.0-5.0) 10/10/18 13:08 Basophils % 0.7 % (0.0-2.0) 10/10/18 13:08 Sodium 137 mEq/L (136-145) 10/10/18 13:08 Potassium 3.9 mEq/L (3.5-5.1) 10/10/18 13:08 Chloride 104 mEq/L (98-107) 10/10/18 13:08 Carbon Dioxide 24.9 mEq/L (21.0-31.0) 10/10/18 13:08 Anion Gap 12.0 (7.0-16.0) 10/10/18 13:08 BUN 16 mg/dL (7-25) 10/10/18 13:08 Creatinine 1.0 mg/dL (0.6-1.2) 10/10/18 13:08 Est GFR ( Amer) > 60.0 ml/min (>90) 10/10/18 13:08 Est GFR (Non-Af Amer) 58.8 ml/min 10/10/18 13:08 BUN/Creatinine Ratio 16.0 10/10/18 13:08 Glucose 270 mg/dL (70-105) H 10/10/18 13:08 POC Glucose 145 MG/DL (70 - 105) H 10/13/18 11:12 Calcium 9.0 mg/dL (8.6-10.3) 10/10/18 13:08 Total Bilirubin 0.3 mg/dL (0.3-1.0) 10/10/18 13:08 AST 19 U/L (13-39) 10/10/18 13:08 ALT 17 U/L (7-52) 10/10/18 13:08 Alkaline Phosphatase 87 U/L (34-104) 10/10/18 13:08 Total Protein 6.3 gm/dL (6.0-8.3) 10/10/18 13:08 Albumin 3.7 gm/dL (3.7-5.3) 10/10/18 13:08 Globulin 2.6 gm/dL 10/10/18 13:08 Albumin/Globulin Ratio 1.4 (1.0-1.8) 10/10/18 13:08 Urine Source CLEAN C 10/10/18 13:34 Urine Color YELLOW 10/10/18 13:34 Urine Clarity CLEAR (CLEAR) 10/10/18 13:34 Urine pH 5.5 (4.6 - 8.0) 10/10/18 13:34 Ur Specific [place] 1.025 (1.005-1.030) 10/10/18 13:34 Urine Protein NEGATIVE mg/dL (NEGATIVE) 10/10/18 13:34 Urine Glucose (UA) NEGATIVE mg/dL (NEGATIVE) 10/10/18 13:34 Urine Ketones NEGATIVE mg/dL (NEGATIVE) 10/10/18 13:34 Urine Blood NEGATIVE (NEGATIVE) 10/10/18 13:34 Urine Nitrate NEGATIVE (NEGATIVE) 10/10/18 13:34 Urine Bilirubin NEGATIVE (NEGATIVE) 10/10/18 13:34 Urine Urobilinogen 0.2 E.U./dL (0.2 - 1.0) 10/10/18 13:34 Ur Leukocyte Esterase NEGATIVE (NEGATIVE) 10/10/18 13:34 Urine RBC 0-2 /hpf (0-5) 10/10/18 13:34 Urine WBC 2-5 /hpf (0-5) 10/10/18 13:34 Ur Epithelial Cells MODERATE /lpf (FEW) 10/10/18 13:34 Urine Bacteria FEW /hpf (NONE SEEN) 10/10/18 13:34 - Physical Exam Vitals and I&O: Vital Signs Temp 97.6 F 10/13/18 05:01 Pulse 69 10/13/18 09:02 Resp 18 10/13/18 05:01 BP 145/69 10/13/18 09:02 Pulse Ox 92 10/13/18 05:01 Intake & Output 10/12/18 10/13/18 10/13/18 18:59 06:59 18:59 Intake Total 1800 840 Balance 1800 840 Intake: Oral 1800 840 Other: # Voids 4 2 # Bowel Movements 0 0 Active Medications: Current Medications Acetaminophen (Tylenol) 650 mg PO Q4HR PRN PRN Reason: Mild Pain / Temp above 100 Stop: 12/09/18 19:59 Amiodarone HCl (Cordarone) 200 mg PO BID [facility] Stop: 12/10/18 08:59 Last Admin: 10/13/18 09:00 Dose: 200 mg Amlodipine Besylate (Norvasc) 10 mg PO DAILY [facility] Stop: 12/10/18 08:59 Last Admin: 10/13/18 09:02 Dose: 10 mg Ascorbic Acid (Vitamin C) 500 mg PO DAILY [facility] Stop: 12/10/18 08:59 Last Admin: 10/13/18 09:00 Dose: 500 mg Aspirin (Aspirin Chewable) 81 mg PO DAILY [facility] Stop: 12/10/18 08:59 Last Admin: 10/13/18 09:02 Dose: 81 mg Dextrose (D50w) 50 ml IVP PRN PRN PRN Reason: BS below 70&not tolerate po Stop: 12/10/18 10:24 Dextrose (Glutose 40%) 18.75 gm PO PRN PRN PRN Reason: BS below 70 & tolerate po Stop: 12/10/18 10:24 Digoxin (Lanoxin) 0.25 mg PO DAILY [facility] Stop: 12/10/18 08:59 Last Admin: 10/13/18 09:00 Dose: 0.25 mg Docusate Sodium (Colace) 100 mg PO BID [facility] Stop: 12/10/18 08:59 Last Admin: 10/13/18 09:01 Dose: 100 mg Escitalopram Oxalate (Lexapro) 20 mg PO DAILY [facility]; Protocol Stop: 12/10/18 08:59 Last Admin: 10/13/18 09:00 Dose: 20 mg Glucagon (Glucagen) 1 mg IM PRN PRN PRN Reason: BS below 70&dextrose ineffecti Stop: 12/10/18 10:24 Insulin Human Lispro (Humalog Insulin Sliding Scale) 0 units SUBQ ACHS [facility]; Protocol Stop: 12/10/18 11:29 Last Admin: 10/13/18 06:47 Dose: Not Given Lorazepam (Ativan) 0.5 mg PO Q4H PRN; Protocol PRN Reason: Anxiety Stop: 12/09/18 19:59 Metformin HCl (Glucophage) 500 mg PO BIDWM [facility] Stop: 12/10/18 07:59 Last Admin: 10/13/18 09:00 Dose: 500 mg Mupirocin (Bactroban Oint) 1 appl NS BID [facility] Stop: 10/17/18 09:01 Last Admin: 10/13/18 09:00 Dose: 1 appl Oxybutynin Chloride (Ditropan) 5 mg PO DAILY [facility] Stop: 12/10/18 08:59 Last Admin: 10/13/18 09:00 Dose: 5 mg Oxycodone/Acetaminophen (Percocet 5/325mg Oral Tab) 1 tab PO Q4H PRN PRN Reason: pain Stop: 12/09/18 19:39 Last Admin: 10/13/18 10:03 Dose: 1 tab Pantoprazole Sodium (Protonix) 40 mg PO DAILY [facility] Stop: 12/10/18 08:59 Last Admin: 10/13/18 09:01 Dose: 40 mg Quetiapine Fumarate 100 mg/ (Quetiapine Fumarate 25 mg) 125 mg PO HS [facility] Stop: 12/09/18 22:59 Last Admin: 10/12/18 21:11 Dose: 125 mg Rivaroxaban (Xarelto) 20 mg PO DAILY [facility] Stop: 12/10/18 08:59 Last Admin: 10/13/18 09:01 Dose: 20 mg Senna (Senna) 8.6 mg PO DAILY [facility] Stop: 12/10/18 08:59 Last Admin: 10/13/18 09:01 Dose: 8.6 mg Sitagliptin Phosphate (Januvia) 100 mg PO QDAC [facility] Stop: 12/10/18 07:29 Last Admin: 10/13/18 09:00 Dose: 100 mg Zolpidem Tartrate (Ambien) 5 mg PO HS PRN PRN Reason: Insomnia Stop: 12/09/18 18:50 Last Admin: 10/12/18 21:11 Dose: 5 mg Physical Exam: 68 y/o female patient has been resisting care and is gravely disabled. General: weak, lethargic HEENT: NC/AT Neck: Supple, No JVD Lungs: CTAB Cardiovascular: RRR, Normal S1 Abdomen: soft, non-tender Extremities: other (back sores present.) Neurological: no change Internal Medicine Assmt/Plan - Assessment Assessment: Refusing Care 5150 Hold. Diabetes. Afib. Bipolar disorder. Copd. Hypertension. Osteoarthritis. Hx of recent knee surgery. Pressure sores. - Plan Plan: Continuation of care. Psych followup/management. Monitor Labs. Continue present meds as directed. Monitor Diet/Nutritional support. Local skin care and wound care. Pain Management. Physical therapy. Occupational therapy. Safety precaution. Supportive care. Fall precaution, frequent nursing rounds, and as needed restraints to prevent fall. Continue collaborating with consulting specialists, case management and nursing team. Will Monitor patient and continue current treatment plan as ordered. Nutritional Asmnt/Malnutr-PDOC - Dietary Evaluation Malnutrition Findings (Please click <Entered> for more info): Nutritional Asmnt/Malnutrition Start: 10/11/18 14: 22 Text: Status: Complete Freq: Protocol: Document 10/11/18 14:22 LCHENG (Rec: 10/11/18 14:31 [email or web address] [id number]) Nutritional Asmnt/Malnutrition Patient General Information Nutritional Screening High Risk Diagnosis psychosis Pertinent Medical Hx/Surgical Hx HTN, DM, asthma/COPD, arthritis, afib, knee and rt shoulder surger, csection Subjective Information Pt seen eating lunch in bed at time of visit. Food preference provided to RD. Pt asked for real sugar. Explained to pt that she is on [facility] diet and the benifits for diabetes. Pt stated her blood sugar is fine. Glucose 270 at admission noted. Pt appeared not interested in diabetic education. Per EMR, pt consumed 50% of breakfast today. Current Diet Order/ Nutrition Support [facility] Pertinent Medications vit C, colace, glucophage, protonix, senna, januvia Pertinent Labs 10/10 glucose 270 Nutritional Hx/Data Height 1.68 m Height (Calculated Centimeters) 167.6 Current Weight (lbs) 113.398 kg Weight (Calculated Kilograms) 113.4 Weight (Calculated Grams) 629415.1 [place] Body Weight 130 Body Mass Index (BMI) 40.3 Weight Status Morbidly Obese GI Symptoms GI Symptoms None Last BM none Difficult in: None Skin Integrity/Comment: RT. knee surgery scar,redness to coccyx area mitul 15 Estimated Nutritional Goals BEE in Kcals: Adj wt of IBW Calories/Kcals/Kg 25-30 Kcals Calculated [id number] Protein: Adj wt of IBW Protein g/k Protein Calculated 73 Fluid: ml 1825-2190ml (1ml/kcal) Nutritional Problem 1. Problem Problem altered nutrition related labs Etiology hyperglycemia Signs/Symptoms: gluocse 270 at admission Malnutrition Alert Is there a minimum of two criteria No selected? Query Text:Check all the applicable criteria. A minimum of two criteria are recommended for diagnosis of either severe or non-severe malnutrition. Malnutrition Related to Morbid Obesity Malnutrition related to morbid obesity No Intervention/Recommendation Comments 1. Continue with [facility] diet as ordered. Diet preference updated. 2. Monitor PO intake, wt, labs and skin integrity 3. F/U as low risk in 7 days Expected Outcomes/Goals Expected Outcomes/Goals 1. PO intake to meet at least 75% of nutritional needs. 2. Wt stability, skin to remain intact, labs to approach WNL.
[2018-10-14] MEDS: INSULIN LISPRO SLIDING SCALE 100 UNITS/ML UNIT SUBQ SCH ×4 (06:49→20:08)
[2018-10-14] MEDS: Multivitamin w/ Minerals Tab PO SCH (08:40)
[2018-10-14] MEDS: Pantoprazole 40 mg/Packet PO SCH (08:41)
[2018-10-14] MEDS: Aspirin 81mg Chewable Tab PO SCH (08:41)
[2018-10-14] MEDS: APAP/Oxycodone 5/325mg Tab PO PRN ×3 (09:03→19:53)
--- NOTE | 2018-10-14 19:06 | Internal Medicine Prog Note ---
Internal Medicine Subjective - Subjective Service Date: 10/14/18 Patient is:: awake, agitated, other (Resisting care.) Patient Complaints of:: other (pressure sores of back- Patient is not allowing local skin care.) Per staff patient has:: no episodes of fall, noncompliant, refusing care Internal Medicine Objective - Results Result Diagrams: 10/10/18 13:08 10/10/18 13:08 Recent Labs: Laboratory Last Values WBC 7.0 Th/cmm (4.8-10.8) 10/10/18 13:08 RBC 4.00 Mil/cmm (3.80-5.20) 10/10/18 13:08 Hgb 9.9 gm/dL (12-16) L 10/10/18 13:08 Hct 29.9 % (41.0-60) L 10/10/18 13:08 MCV 74.6 fl (81-100) L 10/10/18 13:08 MCH 24.6 pg (27.0-31.0) L 10/10/18 13:08 MCHC Differential 33.0 pg (28.0-36.0) 10/10/18 13:08 RDW 14.6 % (11.5-20.0) 10/10/18 13:08 Plt Count 273 Th/cmm (150-400) 10/10/18 13:08 MPV 6.4 fl 10/10/18 13:08 Neutrophils % 71.8 % (40.0-80.0) 10/10/18 13:08 Lymphocytes % 18.6 % (20.0-50.0) L 10/10/18 13:08 Monocytes % 7.6 % (2.0-10.0) 10/10/18 13:08 Eosinophils % 1.3 % (0.0-5.0) 10/10/18 13:08 Basophils % 0.7 % (0.0-2.0) 10/10/18 13:08 Sodium 137 mEq/L (136-145) 10/10/18 13:08 Potassium 3.9 mEq/L (3.5-5.1) 10/10/18 13:08 Chloride 104 mEq/L (98-107) 10/10/18 13:08 Carbon Dioxide 24.9 mEq/L (21.0-31.0) 10/10/18 13:08 Anion Gap 12.0 (7.0-16.0) 10/10/18 13:08 BUN 16 mg/dL (7-25) 10/10/18 13:08 Creatinine 1.0 mg/dL (0.6-1.2) 10/10/18 13:08 Est GFR ( Amer) > 60.0 ml/min (>90) 10/10/18 13:08 Est GFR (Non-Af Amer) 58.8 ml/min 10/10/18 13:08 BUN/Creatinine Ratio 16.0 10/10/18 13:08 Glucose 270 mg/dL (70-105) H 10/10/18 13:08 POC Glucose 130 MG/DL (70 - 105) H 10/14/18 05:59 Calcium 9.0 mg/dL (8.6-10.3) 10/10/18 13:08 Total Bilirubin 0.3 mg/dL (0.3-1.0) 10/10/18 13:08 AST 19 U/L (13-39) 10/10/18 13:08 ALT 17 U/L (7-52) 10/10/18 13:08 Alkaline Phosphatase 87 U/L (34-104) 10/10/18 13:08 Total Protein 6.3 gm/dL (6.0-8.3) 10/10/18 13:08 Albumin 3.7 gm/dL (3.7-5.3) 10/10/18 13:08 Globulin 2.6 gm/dL 10/10/18 13:08 Albumin/Globulin Ratio 1.4 (1.0-1.8) 10/10/18 13:08 Urine Source CLEAN C 10/10/18 13:34 Urine Color YELLOW 10/10/18 13:34 Urine Clarity CLEAR (CLEAR) 10/10/18 13:34 Urine pH 5.5 (4.6 - 8.0) 10/10/18 13:34 Ur Specific [place] 1.025 (1.005-1.030) 10/10/18 13:34 Urine Protein NEGATIVE mg/dL (NEGATIVE) 10/10/18 13:34 Urine Glucose (UA) NEGATIVE mg/dL (NEGATIVE) 10/10/18 13:34 Urine Ketones NEGATIVE mg/dL (NEGATIVE) 10/10/18 13:34 Urine Blood NEGATIVE (NEGATIVE) 10/10/18 13:34 Urine Nitrate NEGATIVE (NEGATIVE) 10/10/18 13:34 Urine Bilirubin NEGATIVE (NEGATIVE) 10/10/18 13:34 Urine Urobilinogen 0.2 E.U./dL (0.2 - 1.0) 10/10/18 13:34 Ur Leukocyte Esterase NEGATIVE (NEGATIVE) 10/10/18 13:34 Urine RBC 0-2 /hpf (0-5) 10/10/18 13:34 Urine WBC 2-5 /hpf (0-5) 10/10/18 13:34 Ur Epithelial Cells MODERATE /lpf (FEW) 10/10/18 13:34 Urine Bacteria FEW /hpf (NONE SEEN) 10/10/18 13:34 - Physical Exam Vitals and I&O: Vital Signs Temp 97.4 F 10/14/18 14:00 Pulse 56 10/14/18 16:34 Resp 18 10/14/18 14:00 BP 127/64 10/14/18 14:00 Pulse Ox 91 10/14/18 14:00 Intake & Output 10/14/18 10/14/18 10/15/18 06:59 18:59 06:59 Intake Total 240 1200 Balance 240 1200 Intake: Oral 240 1200 Other: # Voids 2 # Bowel Movements 0 1 Active Medications: Current Medications Acetaminophen (Tylenol) 650 mg PO Q4HR PRN PRN Reason: Mild Pain / Temp above 100 Stop: 12/09/18 19:59 Amiodarone HCl (Cordarone) 200 mg PO BID [facility] Stop: 12/10/18 08:59 Last Admin: 10/14/18 16:34 Dose: Not Given Amlodipine Besylate (Norvasc) 10 mg PO DAILY [facility] Stop: 12/10/18 08:59 Last Admin: 10/14/18 08:53 Dose: Not Given Ascorbic Acid (Vitamin C) 500 mg PO DAILY [facility] Stop: 12/10/18 08:59 Last Admin: 10/14/18 08:42 Dose: 500 mg Aspirin (Aspirin Chewable) 81 mg PO DAILY [facility] Stop: 12/10/18 08:59 Last Admin: 10/14/18 08:41 Dose: 81 mg Dextrose (D50w) 50 ml IVP PRN PRN PRN Reason: BS below 70&not tolerate po Stop: 12/10/18 10:24 Dextrose (Glutose 40%) 18.75 gm PO PRN PRN PRN Reason: BS below 70 & tolerate po Stop: 12/10/18 10:24 Digoxin (Lanoxin) 0.25 mg PO DAILY [facility] Stop: 12/10/18 08:59 Last Admin: 10/14/18 08:53 Dose: Not Given Docusate Sodium (Colace) 100 mg PO BID [facility] Stop: 12/10/18 08:59 Last Admin: 10/14/18 16:34 Dose: 100 mg Escitalopram Oxalate (Lexapro) 20 mg PO DAILY [facility]; Protocol Stop: 12/10/18 08:59 Last Admin: 10/14/18 08:40 Dose: 20 mg Glucagon (Glucagen) 1 mg IM PRN PRN PRN Reason: BS below 70&dextrose ineffecti Stop: 12/10/18 10:24 Insulin Human Lispro (Humalog Insulin Sliding Scale) 0 units SUBQ ACHS [facility]; Protocol Stop: 12/10/18 11:29 Last Admin: 10/14/18 16:36 Dose: 2 units Lorazepam (Ativan) 0.5 mg PO Q4H PRN; Protocol PRN Reason: Anxiety Stop: 12/09/18 19:59 Metformin HCl (Glucophage) 500 mg PO BIDWM [facility] Stop: 12/10/18 07:59 Last Admin: 10/14/18 17:00 Dose: 500 mg Mupirocin (Bactroban Oint) 1 appl NS BID [facility] Stop: 10/17/18 09:01 Last Admin: 10/14/18 16:47 Dose: 1 appl Oxybutynin Chloride (Ditropan) 5 mg PO DAILY [facility] Stop: 12/10/18 08:59 Last Admin: 10/14/18 08:40 Dose: 5 mg Oxycodone/Acetaminophen (Percocet 5/325mg Oral Tab) 1 tab PO Q4H PRN PRN Reason: pain Stop: 12/09/18 19:39 Last Admin: 10/14/18 15:10 Dose: 1 tab Pantoprazole Sodium (Protonix) 40 mg PO DAILY [facility] Stop: 12/10/18 08:59 Last Admin: 10/14/18 08:41 Dose: 40 mg Quetiapine Fumarate 100 mg/ (Quetiapine Fumarate 25 mg) 125 mg PO HS [facility] Stop: 12/09/18 22:59 Last Admin: 10/13/18 20:26 Dose: 125 mg Rivaroxaban (Xarelto) 20 mg PO DAILY [facility] Stop: 12/10/18 08:59 Last Admin: 10/14/18 08:41 Dose: 20 mg Senna (Senna) 8.6 mg PO DAILY [facility] Stop: 12/10/18 08:59 Last Admin: 10/14/18 08:40 Dose: 8.6 mg Sitagliptin Phosphate (Januvia) 100 mg PO QDAC [facility] Stop: 12/10/18 07:29 Last Admin: 10/14/18 06:48 Dose: 100 mg Zolpidem Tartrate (Ambien) 5 mg PO HS PRN PRN Reason: Insomnia Stop: 12/09/18 18:50 Last Admin: 10/12/18 21:11 Dose: 5 mg Physical Exam: 68 y/o patient is gravely disabled and continues to refuse local skin care as well as care. General: lethargic HEENT: NC/AT, PERRLA Neck: Supple, No JVD Lungs: CTAB Cardiovascular: RRR, Normal S1 Abdomen: soft, non-tender Extremities: other (back sores.) Neurological: no change, unsteady Internal Medicine Assmt/Plan - Assessment Assessment: Refusing Care 5150 Hold. Diabetes. Afib. Bipolar disorder. Copd. Hypertension. Osteoarthritis. Pressure sores. - Plan Plan: Continuation of care. Psych followup/management. Monitor Labs. Continue present meds as directed. Monitor Diet/Nutritional support. Local skin care and wound care. Pain Management. Physical therapy. Occupational therapy. Safety precaution. Supportive care. Fall precaution, frequent nursing rounds, and as needed restraints to prevent fall. Continue collaborating with consulting specialists, case management and nursing team. Will Monitor patient and continue current treatment plan as ordered. Nutritional Asmnt/Malnutr-PDOC - Dietary Evaluation Malnutrition Findings (Please click <Entered> for more info): Nutritional Asmnt/Malnutrition Start: 10/11/18 14: 22 Text: Status: Complete Freq: Protocol: Document 10/11/18 14:22 LCHENG (Rec: 10/11/18 14:31 LCHAILEYG [email or web address]) Nutritional Asmnt/Malnutrition Patient General Information Nutritional Screening High Risk Diagnosis psychosis Pertinent Medical Hx/Surgical Hx HTN, DM, asthma/COPD, arthritis, afib, knee and rt shoulder surger, csection Subjective Information Pt seen eating lunch in bed at time of visit. Food preference provided to RD. Pt asked for real sugar. Explained to pt that she is on [facility] diet and the benifits for diabetes. Pt stated her blood sugar is fine. Glucose 270 at admission noted. Pt appeared not interested in diabetic education. Per EMR, pt consumed 50% of breakfast today. Current Diet Order/ Nutrition Support [facility] Pertinent Medications vit C, colace, glucophage, protonix, senna, januvia Pertinent Labs 10/10 glucose 270 Nutritional Hx/Data Height 1.68 m Height (Calculated Centimeters) 167.6 Current Weight (lbs) 113.398 kg Weight (Calculated Kilograms) 113.4 Weight (Calculated Grams) 781696.1 [place] Body Weight 130 Body Mass Index (BMI) 40.3 Weight Status Morbidly Obese GI Symptoms GI Symptoms None Last BM none Difficult in: None Skin Integrity/Comment: RT. knee surgery scar,redness to coccyx area mitul 15 Estimated Nutritional Goals BEE in Kcals: Adj wt of IBW Calories/Kcals/Kg 25-30 Kcals Calculated 5445-0123 Protein: Adj wt of IBW Protein g/k Protein Calculated 73 Fluid: ml 1825-2190ml (1ml/kcal) Nutritional Problem 1. Problem Problem altered nutrition related labs Etiology hyperglycemia Signs/Symptoms: gluocse 270 at admission Malnutrition Alert Is there a minimum of two criteria No selected? Query Text:Check all the applicable criteria. A minimum of two criteria are recommended for diagnosis of either severe or non-severe malnutrition. Malnutrition Related to Morbid Obesity Malnutrition related to morbid obesity No Intervention/Recommendation Comments 1. Continue with [facility] diet as ordered. Diet preference updated. 2. Monitor PO intake, wt, labs and skin integrity 3. F/U as low risk in 7 days Expected Outcomes/Goals Expected Outcomes/Goals 1. PO intake to meet at least 75% of nutritional needs. 2. Wt stability, skin to remain intact, labs to approach WNL.
--- NOTE | 2018-10-14 19:34 | Progress Notes ---
DATE: 10/14/2018 SUBJECTIVE: Chart was reviewed and the patient interviewed. Also discussed the patient's condition with the staff and reviewed records and labs. The patient seems to be in a depressed mood today and the patient said that she is trying harder to get things better. She has been more cooperative in regard to cleaning herself and to allow staff to clean her, but she is still refusing to shower and instructing her to the sores in her back. The patient also said that she has been more cooperative in regard to her physical therapy. She is still reluctant and trying not to follow what is supposed to be done at times including giving staff a little bit difficulty to do so. ASSESSMENT: The patient is still considered to be gravely disabled. TREATMENT PLAN: Continue monitoring her behavior and adjusting medications. Also, working on placement issue and discharge plans. It seems that [place] does not want to take the patient that because of her behavior, which she still seems to be continued. JOB# [id number]
[2018-10-15] MEDS: APAP/Oxycodone 5/325mg Tab PO PRN ×4 (00:57→20:47)
[2018-10-15] MEDS: INSULIN LISPRO SLIDING SCALE 100 UNITS/ML UNIT SUBQ SCH ×4 (06:40→20:48)
[2018-10-15] MEDS: Multivitamin w/ Minerals Tab PO SCH (08:08)
[2018-10-15] MEDS: Aspirin 81mg Chewable Tab PO SCH (08:09)
[2018-10-15] MEDS: Pantoprazole 40 mg/Packet PO SCH (08:09)
--- NOTE | 2018-10-16 03:12 | Progress Notes ---
DATE: Chart was reviewed and the patient interviewed. Also discussed the patient's condition with the staff and reviewed records and labs. The patient is still anxious and is still in a depressed mood. The patient also is still depressed because of not able to return to [place] until now and is still hoping that she would be able to return or to go to another facility. So far, [place] is refusing to take the patient because of her behavior there and afraid of repeating of the behavior. At the same time, the patient has started to be more compliant with her treatment except that she is still not very cooperative in regard to the rehabilitation and also her diet. She is slightly easier to direct her in regard to her rehab and the diet. At the same time, we will continue medications and to continue to monitor behavior and work on discharge plans. JOB# [id number]
[2018-10-16] MEDS: INSULIN LISPRO SLIDING SCALE 100 UNITS/ML UNIT SUBQ SCH ×4 (06:46→20:42)
[2018-10-16] MEDS: Pantoprazole 40 mg/Packet PO SCH (08:47)
[2018-10-16] MEDS: Multivitamin w/ Minerals Tab PO SCH (08:48)
[2018-10-16] MEDS: Aspirin 81mg Chewable Tab PO SCH (08:49)
[2018-10-16] MEDS: APAP/Oxycodone 5/325mg Tab PO PRN ×3 (08:50→20:25)
--- NOTE | 2018-10-16 11:27 | Internal Medicine Prog Note ---
Internal Medicine Subjective - Subjective Service Date: 10/16/18 Patient seen and examined:: with staff Patient is:: awake, agitated, other (Resisting care.) Patient Complaints of:: other (anxious and depressed.) Per staff patient has:: no adverse event, no episodes of fall, noncompliant, refusing care Internal Medicine Objective - Results Result Diagrams: 10/10/18 13:08 10/10/18 13:08 Recent Labs: Laboratory Last Values WBC 7.0 Th/cmm (4.8-10.8) 10/10/18 13:08 RBC 4.00 Mil/cmm (3.80-5.20) 10/10/18 13:08 Hgb 9.9 gm/dL (12-16) L 10/10/18 13:08 Hct 29.9 % (41.0-60) L 10/10/18 13:08 MCV 74.6 fl (81-100) L 10/10/18 13:08 MCH 24.6 pg (27.0-31.0) L 10/10/18 13:08 MCHC Differential 33.0 pg (28.0-36.0) 10/10/18 13:08 RDW 14.6 % (11.5-20.0) 10/10/18 13:08 Plt Count 273 Th/cmm (150-400) 10/10/18 13:08 MPV 6.4 fl 10/10/18 13:08 Neutrophils % 71.8 % (40.0-80.0) 10/10/18 13:08 Lymphocytes % 18.6 % (20.0-50.0) L 10/10/18 13:08 Monocytes % 7.6 % (2.0-10.0) 10/10/18 13:08 Eosinophils % 1.3 % (0.0-5.0) 10/10/18 13:08 Basophils % 0.7 % (0.0-2.0) 10/10/18 13:08 Sodium 137 mEq/L (136-145) 10/10/18 13:08 Potassium 3.9 mEq/L (3.5-5.1) 10/10/18 13:08 Chloride 104 mEq/L (98-107) 10/10/18 13:08 Carbon Dioxide 24.9 mEq/L (21.0-31.0) 10/10/18 13:08 Anion Gap 12.0 (7.0-16.0) 10/10/18 13:08 BUN 16 mg/dL (7-25) 10/10/18 13:08 Creatinine 1.0 mg/dL (0.6-1.2) 10/10/18 13:08 Est GFR ( Amer) > 60.0 ml/min (>90) 10/10/18 13:08 Est GFR (Non-Af Amer) 58.8 ml/min 10/10/18 13:08 BUN/Creatinine Ratio 16.0 10/10/18 13:08 Glucose 270 mg/dL (70-105) H 10/10/18 13:08 POC Glucose 130 MG/DL (70 - 105) H 10/14/18 05:59 Calcium 9.0 mg/dL (8.6-10.3) 10/10/18 13:08 Total Bilirubin 0.3 mg/dL (0.3-1.0) 10/10/18 13:08 AST 19 U/L (13-39) 10/10/18 13:08 ALT 17 U/L (7-52) 10/10/18 13:08 Alkaline Phosphatase 87 U/L (34-104) 10/10/18 13:08 Total Protein 6.3 gm/dL (6.0-8.3) 10/10/18 13:08 Albumin 3.7 gm/dL (3.7-5.3) 10/10/18 13:08 Globulin 2.6 gm/dL 10/10/18 13:08 Albumin/Globulin Ratio 1.4 (1.0-1.8) 10/10/18 13:08 Urine Source CLEAN C 10/10/18 13:34 Urine Color YELLOW 10/10/18 13:34 Urine Clarity CLEAR (CLEAR) 10/10/18 13:34 Urine pH 5.5 (4.6 - 8.0) 10/10/18 13:34 Ur Specific [place] 1.025 (1.005-1.030) 10/10/18 13:34 Urine Protein NEGATIVE mg/dL (NEGATIVE) 10/10/18 13:34 Urine Glucose (UA) NEGATIVE mg/dL (NEGATIVE) 10/10/18 13:34 Urine Ketones NEGATIVE mg/dL (NEGATIVE) 10/10/18 13:34 Urine Blood NEGATIVE (NEGATIVE) 10/10/18 13:34 Urine Nitrate NEGATIVE (NEGATIVE) 10/10/18 13:34 Urine Bilirubin NEGATIVE (NEGATIVE) 10/10/18 13:34 Urine Urobilinogen 0.2 E.U./dL (0.2 - 1.0) 10/10/18 13:34 Ur Leukocyte Esterase NEGATIVE (NEGATIVE) 10/10/18 13:34 Urine RBC 0-2 /hpf (0-5) 10/10/18 13:34 Urine WBC 2-5 /hpf (0-5) 10/10/18 13:34 Ur Epithelial Cells MODERATE /lpf (FEW) 10/10/18 13:34 Urine Bacteria FEW /hpf (NONE SEEN) 10/10/18 13:34 - Physical Exam Vitals and I&O: Vital Signs Temp 98.6 F 10/16/18 07:10 Pulse 53 10/16/18 07:10 Resp 20 10/16/18 07:10 BP 140/71 10/16/18 07:10 Pulse Ox 93 10/16/18 07:10 Intake & Output 10/15/18 10/16/18 10/16/18 18:59 06:59 18:59 Intake Total 1200 640 Balance 1200 640 Intake: Oral 1200 640 Other: # Voids 3 2 # Bowel Movements 0 Active Medications: Current Medications Acetaminophen (Tylenol) 650 mg PO Q4HR PRN PRN Reason: Mild Pain / Temp above 100 Stop: 12/09/18 19:59 Amiodarone HCl (Cordarone) 200 mg PO BID [facility] Stop: 12/10/18 08:59 Last Admin: 10/16/18 08:59 Dose: Not Given Amlodipine Besylate (Norvasc) 10 mg PO DAILY [facility] Stop: 12/10/18 08:59 Last Admin: 10/16/18 09:00 Dose: Not Given Ascorbic Acid (Vitamin C) 500 mg PO DAILY [facility] Stop: 12/10/18 08:59 Last Admin: 10/16/18 08:49 Dose: 500 mg Aspirin (Aspirin Chewable) 81 mg PO DAILY [facility] Stop: 12/10/18 08:59 Last Admin: 10/16/18 08:49 Dose: 81 mg Dextrose (D50w) 50 ml IVP PRN PRN PRN Reason: BS below 70&not tolerate po Stop: 12/10/18 10:24 Dextrose (Glutose 40%) 18.75 gm PO PRN PRN PRN Reason: BS below 70 & tolerate po Stop: 12/10/18 10:24 Digoxin (Lanoxin) 0.25 mg PO DAILY [facility] Stop: 12/10/18 08:59 Last Admin: 10/16/18 09:00 Dose: Not Given Docusate Sodium (Colace) 100 mg PO BID [facility] Stop: 12/10/18 08:59 Last Admin: 10/16/18 08:47 Dose: 100 mg Escitalopram Oxalate (Lexapro) 20 mg PO DAILY [facility]; Protocol Stop: 12/10/18 08:59 Last Admin: 10/16/18 08:51 Dose: 20 mg Glucagon (Glucagen) 1 mg IM PRN PRN PRN Reason: BS below 70&dextrose ineffecti Stop: 12/10/18 10:24 Insulin Human Lispro (Humalog Insulin Sliding Scale) 0 units SUBQ ACHS [facility]; Protocol Stop: 12/10/18 11:29 Last Admin: 10/16/18 06:46 Dose: Not Given Lorazepam (Ativan) 0.5 mg PO Q4H PRN; Protocol PRN Reason: Anxiety Stop: 12/09/18 19:59 Metformin HCl (Glucophage) 500 mg PO BIDWM [facility] Stop: 12/10/18 07:59 Last Admin: 10/16/18 08:50 Dose: 500 mg Mupirocin (Bactroban Oint) 1 appl NS BID [facility] Stop: 10/17/18 09:01 Last Admin: 10/16/18 09:33 Dose: 1 appl Oxybutynin Chloride (Ditropan) 5 mg PO DAILY [facility] Stop: 12/10/18 08:59 Last Admin: 10/16/18 08:51 Dose: 5 mg Oxycodone/Acetaminophen (Percocet 5/325mg Oral Tab) 1 tab PO Q4H PRN PRN Reason: pain Stop: 12/09/18 19:39 Last Admin: 10/16/18 08:50 Dose: 1 tab Pantoprazole Sodium (Protonix) 40 mg PO DAILY [facility] Stop: 12/10/18 08:59 Last Admin: 10/16/18 08:47 Dose: 40 mg Quetiapine Fumarate (Seroquel) 150 mg PO HS [facility] Stop: 12/14/18 20:59 Last Admin: 10/15/18 21:18 Dose: 150 mg Rivaroxaban (Xarelto) 20 mg PO DAILY [facility] Stop: 12/10/18 08:59 Last Admin: 10/16/18 08:47 Dose: 20 mg Senna (Senna) 8.6 mg PO DAILY [facility] Stop: 12/10/18 08:59 Last Admin: 10/16/18 08:51 Dose: 8.6 mg Sitagliptin Phosphate (Januvia) 100 mg PO QDAC [facility] Stop: 12/10/18 07:29 Last Admin: 10/16/18 06:42 Dose: 100 mg Zolpidem Tartrate (Ambien) 5 mg PO HS PRN PRN Reason: Insomnia Stop: 12/09/18 18:50 Last Admin: 10/15/18 22:05 Dose: 5 mg Physical Exam: 68 y/o patient is gravely disabled and continues to refuse local skin care as well as care. Patient is anxious and in depressed mood. General: lethargic HEENT: NC/AT, PERRLA Neck: Supple, No JVD Lungs: CTAB Cardiovascular: RRR, Normal S1 Abdomen: soft, non-tender Extremities: other (back sores.) Neurological: no change, unsteady Internal Medicine Assmt/Plan - Assessment Assessment: Refusing Care 5150 Hold. Diabetes. Afib. Bipolar disorder. Depressed mood. Anxiety. Copd. Hypertension. Osteoarthritis. Pressure sores. - Plan Plan: Continuation of care. Psych followup/management. Monitor Labs. Continue present meds as directed. Monitor Diet/Nutritional support. Local skin care and wound care. Pain Management. Physical therapy. Occupational therapy. Safety precaution. Supportive care. Fall precaution, frequent nursing rounds, and as needed restraints to prevent fall. Continue collaborating with consulting specialists, case management and nursing team. Will Monitor patient and continue current treatment plan as ordered. Nutritional Asmnt/Malnutr-PDOC - Dietary Evaluation Malnutrition Findings (Please click <Entered> for more info): Nutritional Asmnt/Malnutrition Start: 10/11/18 14: 22 Text: Status: Complete Freq: Protocol: Document 10/11/18 14:22 DILAN (Rec: 10/11/18 14:31 DILAN [email or web address]) Nutritional Asmnt/Malnutrition Patient General Information Nutritional Screening High Risk Diagnosis psychosis Pertinent Medical Hx/Surgical Hx HTN, DM, asthma/COPD, arthritis, afib, knee and rt shoulder surger, csection Subjective Information Pt seen eating lunch in bed at time of visit. Food preference provided to RD. Pt asked for real sugar. Explained to pt that she is on [facility] diet and the benifits for diabetes. Pt stated her blood sugar is fine. Glucose 270 at admission noted. Pt appeared not interested in diabetic education. Per EMR, pt consumed 50% of breakfast today. Current Diet Order/ Nutrition Support [facility] Pertinent Medications vit C, colace, glucophage, protonix, senna, januvia Pertinent Labs 10/10 glucose 270 Nutritional Hx/Data Height 1.68 m Height (Calculated Centimeters) 167.6 Current Weight (lbs) 113.398 kg Weight (Calculated Kilograms) 113.4 Weight (Calculated Grams) 227736.1 [place] Body Weight 130 Body Mass Index (BMI) 40.3 Weight Status Morbidly Obese GI Symptoms GI Symptoms None Last BM none Difficult in: None Skin Integrity/Comment: RT. knee surgery scar,redness to coccyx area mitul 15 Estimated Nutritional Goals BEE in Kcals: Adj wt of IBW Calories/Kcals/Kg 25-30 Kcals Calculated 7406-9608 Protein: Adj wt of IBW Protein g/k Protein Calculated 73 Fluid: ml 1825-2190ml (1ml/kcal) Nutritional Problem 1. Problem Problem altered nutrition related labs Etiology hyperglycemia Signs/Symptoms: gluocse 270 at admission Malnutrition Alert Is there a minimum of two criteria No selected? Query Text:Check all the applicable criteria. A minimum of two criteria are recommended for diagnosis of either severe or non-severe malnutrition. Malnutrition Related to Morbid Obesity Malnutrition related to morbid obesity No Intervention/Recommendation Comments 1. Continue with [facility] diet as ordered. Diet preference updated. 2. Monitor PO intake, wt, labs and skin integrity 3. F/U as low risk in 7 days Expected Outcomes/Goals Expected Outcomes/Goals 1. PO intake to meet at least 75% of nutritional needs. 2. Wt stability, skin to remain intact, labs to approach WNL.
--- NOTE | 2018-10-16 22:31 | Progress Notes ---
DATE: 10/16/2018 SUBJECTIVE: The patient with history of bipolar, coming in from a care home, unruly, unable to be cared for at a lower level of care. The patient minimally interactive, anxious, in a depressed mood. Unable to go back to the previous care home because of her behaviors. She is somewhat more compliant, minimally interactive this morning, but seems to be in better spirits, friendlier, more interactive with staff. Fair sleep, fair appetite. PLAN: We will continue to monitor. Medications were noted. human services case manager are actively searching for a place for her to go. Concerns that she cannot take care of her basic needs and will need help in this regard. [facility]# [id number]
[2018-10-17] MEDS: APAP/Oxycodone 5/325mg Tab PO PRN ×4 (01:30→19:42)
[2018-10-17] MEDS: INSULIN LISPRO SLIDING SCALE 100 UNITS/ML UNIT SUBQ SCH ×4 (06:30→21:24)
[2018-10-17] MEDS: Aspirin 81mg Chewable Tab PO SCH (08:22)
[2018-10-17] MEDS: Multivitamin w/ Minerals Tab PO SCH (08:25)
[2018-10-17] MEDS: Pantoprazole 40 mg/Packet PO SCH (08:25)
--- NOTE | 2018-10-17 19:16 | Progress Notes ---
DATE: 10/17/2018 The patient is currently in the hospital. Crying this morning. No behavioral disturbances over the past 24 hours, has been more redirectable. She is pretty impulsive, unpredictable multiple inpatient admissions. Staff noting she is labile, sometimes demanding, yells at times, loud voice, hard to redirect, poor frustration tolerance, fair sleep, fair appetite. The patient notes her mood is "okay" this morning. PLAN: We will continue to monitor. She is more interactive with me today, more compliant with medications, ongoing behaviors, screaming episodes, but improvement noted. JOB# [id number]
[2018-10-18] MEDS: APAP/Oxycodone 5/325mg Tab PO PRN ×5 (00:07→20:25)
[2018-10-18] MEDS: INSULIN LISPRO SLIDING SCALE 100 UNITS/ML UNIT SUBQ SCH ×3 (06:34→20:26)
[2018-10-18] MEDS: Pantoprazole 40 mg/Packet PO SCH (09:46)
[2018-10-18] MEDS: Aspirin 81mg Chewable Tab PO SCH (09:46)
[2018-10-18] MEDS: Multivitamin w/ Minerals Tab PO SCH (09:47)
--- NOTE | 2018-10-19 01:51 | Progress Notes ---
DATE: PSYCHIATRIC PROGRESS NOTE SUBJECTIVE: Chart reviewed and the patient viewed. Also discussed the patient's condition with the staff and reviewed records and labs. The patient is demanding and she is still easily agitated and in irritable mood. The patient also is still trying to get back to [place]. She is trying to follow instructions, but still confused at times. Otherwise, the patient is compliant with taking her medications with no side effects of medications. ASSESSMENT: The patient is still concerned to be gravely disabled and needs a lot of help. TREATMENT PLAN: Continue to monitor her behavior and her condition closely and continue to follow up. [facility]# [id number]
[2018-10-19] MEDS: APAP/Oxycodone 5/325mg Tab PO PRN ×4 (06:23→20:27)
[2018-10-19] MEDS: INSULIN LISPRO SLIDING SCALE 100 UNITS/ML UNIT SUBQ SCH ×4 (06:29→20:27)
[2018-10-19] MEDS: Aspirin 81mg Chewable Tab PO SCH (08:40)
[2018-10-19] MEDS: Multivitamin w/ Minerals Tab PO SCH (08:42)
[2018-10-19] MEDS: Pantoprazole 40 mg/Packet PO SCH (08:43)
--- NOTE | 2018-10-20 01:33 | Progress Notes ---
DATE: 10/19/2018 FOLLOWUP PROGRESS NOTE COVERING FOR: Dr. Solomon. PROGRESS ON THE UNIT: Case discussed with staff of the patient, reviewed records. This is a well-known case to me as I have seen her before also covering for Dr. Solomon on her previous admission. The patient continues to be irritable, easily agitated. The patient wants to go back to [place], but she is still confused. She continues to be unpredictable, impulsive, getting agitated very easily. She continues to have poor insight, unable to make a safe plan for her self-care. No side effects with the medication, no sedation, no nausea, no extrapyramidal symptoms. She is on Lexapro 20 mg daily and Seroquel 150 mg at bedtime. We will continue to work with the patient in group therapy and milieu therapy, adjust the medication as needed. JOB# [id number]
[2018-10-20] MEDS: APAP/Oxycodone 5/325mg Tab PO PRN ×4 (06:19→20:44)
[2018-10-20] MEDS: INSULIN LISPRO SLIDING SCALE 100 UNITS/ML UNIT SUBQ SCH ×5 (06:36→20:45)
[2018-10-20] MEDS: Multivitamin w/ Minerals Tab PO SCH (08:24)
[2018-10-20] MEDS: Pantoprazole 40 mg/Packet PO SCH (08:25)
[2018-10-20] MEDS: Aspirin 81mg Chewable Tab PO SCH (08:26)
--- NOTE | 2018-10-20 11:19 | Internal Medicine Prog Note ---
Internal Medicine Subjective - Subjective Service Date: 10/20/18 Patient seen and examined:: with staff Patient is:: awake, agitated, other (poor insight, continues to resist care.) Patient Complaints of:: other (anxious and depressed.) Per staff patient has:: no adverse event, no episodes of fall, noncompliant, refusing care Internal Medicine Objective - Results Result Diagrams: 10/10/18 13:08 10/10/18 13:08 Recent Labs: Laboratory Last Values WBC 7.0 Th/cmm (4.8-10.8) 10/10/18 13:08 RBC 4.00 Mil/cmm (3.80-5.20) 10/10/18 13:08 Hgb 9.9 gm/dL (12-16) L 10/10/18 13:08 Hct 29.9 % (41.0-60) L 10/10/18 13:08 MCV 74.6 fl (81-100) L 10/10/18 13:08 MCH 24.6 pg (27.0-31.0) L 10/10/18 13:08 MCHC Differential 33.0 pg (28.0-36.0) 10/10/18 13:08 RDW 14.6 % (11.5-20.0) 10/10/18 13:08 Plt Count 273 Th/cmm (150-400) 10/10/18 13:08 MPV 6.4 fl 10/10/18 13:08 Neutrophils % 71.8 % (40.0-80.0) 10/10/18 13:08 Lymphocytes % 18.6 % (20.0-50.0) L 10/10/18 13:08 Monocytes % 7.6 % (2.0-10.0) 10/10/18 13:08 Eosinophils % 1.3 % (0.0-5.0) 10/10/18 13:08 Basophils % 0.7 % (0.0-2.0) 10/10/18 13:08 Sodium 137 mEq/L (136-145) 10/10/18 13:08 Potassium 3.9 mEq/L (3.5-5.1) 10/10/18 13:08 Chloride 104 mEq/L (98-107) 10/10/18 13:08 Carbon Dioxide 24.9 mEq/L (21.0-31.0) 10/10/18 13:08 Anion Gap 12.0 (7.0-16.0) 10/10/18 13:08 BUN 16 mg/dL (7-25) 10/10/18 13:08 Creatinine 1.0 mg/dL (0.6-1.2) 10/10/18 13:08 Est GFR ( Amer) > 60.0 ml/min (>90) 10/10/18 13:08 Est GFR (Non-Af Amer) 58.8 ml/min 10/10/18 13:08 BUN/Creatinine Ratio 16.0 10/10/18 13:08 Glucose 270 mg/dL (70-105) H 10/10/18 13:08 POC Glucose 131 MG/DL (70 - 105) H 10/19/18 20:05 Calcium 9.0 mg/dL (8.6-10.3) 10/10/18 13:08 Total Bilirubin 0.3 mg/dL (0.3-1.0) 10/10/18 13:08 AST 19 U/L (13-39) 10/10/18 13:08 ALT 17 U/L (7-52) 10/10/18 13:08 Alkaline Phosphatase 87 U/L (34-104) 10/10/18 13:08 Total Protein 6.3 gm/dL (6.0-8.3) 10/10/18 13:08 Albumin 3.7 gm/dL (3.7-5.3) 10/10/18 13:08 Globulin 2.6 gm/dL 10/10/18 13:08 Albumin/Globulin Ratio 1.4 (1.0-1.8) 10/10/18 13:08 Urine Source CLEAN C 10/10/18 13:34 Urine Color YELLOW 10/10/18 13:34 Urine Clarity CLEAR (CLEAR) 10/10/18 13:34 Urine pH 5.5 (4.6 - 8.0) 10/10/18 13:34 Ur Specific [place] 1.025 (1.005-1.030) 10/10/18 13:34 Urine Protein NEGATIVE mg/dL (NEGATIVE) 10/10/18 13:34 Urine Glucose (UA) NEGATIVE mg/dL (NEGATIVE) 10/10/18 13:34 Urine Ketones NEGATIVE mg/dL (NEGATIVE) 10/10/18 13:34 Urine Blood NEGATIVE (NEGATIVE) 10/10/18 13:34 Urine Nitrate NEGATIVE (NEGATIVE) 10/10/18 13:34 Urine Bilirubin NEGATIVE (NEGATIVE) 10/10/18 13:34 Urine Urobilinogen 0.2 E.U./dL (0.2 - 1.0) 10/10/18 13:34 Ur Leukocyte Esterase NEGATIVE (NEGATIVE) 10/10/18 13:34 Urine RBC 0-2 /hpf (0-5) 10/10/18 13:34 Urine WBC 2-5 /hpf (0-5) 10/10/18 13:34 Ur Epithelial Cells MODERATE /lpf (FEW) 10/10/18 13:34 Urine Bacteria FEW /hpf (NONE SEEN) 10/10/18 13:34 - Physical Exam Vitals and I&O: Vital Signs Temp 98.8 F 10/20/18 06:42 Pulse 63 10/20/18 08:25 Resp 20 10/20/18 06:42 BP 141/55 10/20/18 06:42 Pulse Ox 93 10/20/18 06:42 Intake & Output 10/19/18 10/20/18 10/20/18 18:59 06:59 18:59 Intake Total 1400 480 Balance 1400 480 Intake: Oral 1400 480 Other: # Voids 6 2 # Bowel Movements 0 0 Active Medications: Current Medications Acetaminophen (Tylenol) 650 mg PO Q4HR PRN PRN Reason: Mild Pain / Temp above 100 Stop: 12/09/18 19:59 Amiodarone HCl (Cordarone) 200 mg PO BID [facility] Stop: 12/10/18 08:59 Last Admin: 10/20/18 08:25 Dose: 200 mg Amlodipine Besylate (Norvasc) 10 mg PO DAILY [facility] Stop: 12/10/18 08:59 Last Admin: 10/19/18 08:38 Dose: 10 mg Ascorbic Acid (Vitamin C) 500 mg PO DAILY [facility] Stop: 12/10/18 08:59 Last Admin: 10/20/18 08:26 Dose: 500 mg Aspirin (Aspirin Chewable) 81 mg PO DAILY [facility] Stop: 12/10/18 08:59 Last Admin: 10/20/18 08:26 Dose: 81 mg Dextrose (D50w) 50 ml IVP PRN PRN PRN Reason: BS below 70&not tolerate po Stop: 12/10/18 10:24 Dextrose (Glutose 40%) 18.75 gm PO PRN PRN PRN Reason: BS below 70 & tolerate po Stop: 12/10/18 10:24 Digoxin (Lanoxin) 0.25 mg PO DAILY [facility] Stop: 12/10/18 08:59 Last Admin: 10/20/18 08:25 Dose: 0.25 mg Docusate Sodium (Colace) 100 mg PO BID [facility] Stop: 12/10/18 08:59 Last Admin: 10/20/18 08:26 Dose: 100 mg Escitalopram Oxalate (Lexapro) 20 mg PO DAILY [facility]; Protocol Stop: 12/10/18 08:59 Last Admin: 10/20/18 08:25 Dose: 20 mg Glucagon (Glucagen) 1 mg IM PRN PRN PRN Reason: BS below 70&dextrose ineffecti Stop: 12/10/18 10:24 Insulin Human Lispro (Humalog Insulin Sliding Scale) 0 units SUBQ ACHS [facility]; Protocol Stop: 12/10/18 11:29 Last Admin: 10/20/18 06:36 Dose: Not Given Lorazepam (Ativan) 0.5 mg PO Q4H PRN; Protocol PRN Reason: Anxiety Stop: 12/09/18 19:59 Metformin HCl (Glucophage) 500 mg PO BIDWM [facility] Stop: 12/10/18 07:59 Last Admin: 10/20/18 08:24 Dose: 500 mg Oxybutynin Chloride (Ditropan) 5 mg PO DAILY [facility] Stop: 12/10/18 08:59 Last Admin: 10/20/18 08:26 Dose: 5 mg Oxycodone/Acetaminophen (Percocet 5/325mg Oral Tab) 1 tab PO Q4H PRN PRN Reason: Pain (Severe) Stop: 12/17/18 08:09 Last Admin: 10/20/18 11:14 Dose: 1 tab Pantoprazole Sodium (Protonix) 40 mg PO DAILY [facility] Stop: 12/10/18 08:59 Last Admin: 10/20/18 08:25 Dose: Not Given Quetiapine Fumarate (Seroquel) 150 mg PO HS [facility] Stop: 12/14/18 20:59 Last Admin: 10/19/18 20:27 Dose: 150 mg Rivaroxaban (Xarelto) 20 mg PO DAILY [facility] Stop: 12/10/18 08:59 Last Admin: 10/20/18 08:24 Dose: 20 mg Senna (Senna) 8.6 mg PO DAILY [facility] Stop: 12/10/18 08:59 Last Admin: 10/20/18 08:24 Dose: 8.6 mg Sitagliptin Phosphate (Januvia) 100 mg PO QDAC [facility] Stop: 12/10/18 07:29 Last Admin: 10/20/18 06:36 Dose: 100 mg Zolpidem Tartrate (Ambien) 5 mg PO HS PRN PRN Reason: Insomnia Stop: 12/09/18 18:50 Last Admin: 10/19/18 21:56 Dose: 5 mg Physical Exam: 68 y/o patient is gravely disabled and continues to refuse local skin care as well as medical care. Patient has poor insight and unpredictable. Patient will continue to be treated and monitored. General: lethargic HEENT: NC/AT, PERRLA Neck: Supple, No JVD Lungs: CTAB Cardiovascular: RRR, Normal S1 Abdomen: soft, non-tender Extremities: other (back sores.) Neurological: no change, unsteady Internal Medicine Assmt/Plan - Assessment Assessment: Refusing Care 5150 Hold. Diabetes. Afib. Bipolar disorder. Depressed mood. Anxiety. Copd. Hypertension. Osteoarthritis. Pressure sores. - Plan Plan: Continuation of care. Psych followup/management. Monitor Labs. Continue present meds as directed. Monitor Diet/Nutritional support. Local skin care and wound care. Pain Management. Physical therapy. Occupational therapy. Safety precaution. Supportive care. Fall precaution, frequent nursing rounds, and as needed restraints to prevent fall. Continue collaborating with consulting specialists, case management and nursing team. Will Monitor patient and continue current treatment plan as ordered. Nutritional Asmnt/Malnutr-PDOC - Dietary Evaluation Malnutrition Findings (Please click <Entered> for more info): Nutritional Asmnt/Malnutrition Start: 10/11/18 14: 22 Text: Status: Complete Freq: Protocol: Document 10/11/18 14:22 LCHENG (Rec: 10/11/18 14:31 LCHAILEYG [email or web address]) Nutritional Asmnt/Malnutrition Patient General Information Nutritional Screening High Risk Diagnosis psychosis Pertinent Medical Hx/Surgical Hx HTN, DM, asthma/COPD, arthritis, afib, knee and rt shoulder surger, csection Subjective Information Pt seen eating lunch in bed at time of visit. Food preference provided to RD. Pt asked for real sugar. Explained to pt that she is on [facility] diet and the benifits for diabetes. Pt stated her blood sugar is fine. Glucose 270 at admission noted. Pt appeared not interested in diabetic education. Per EMR, pt consumed 50% of breakfast today. Current Diet Order/ Nutrition Support [facility] Pertinent Medications vit C, colace, glucophage, protonix, senna, januvia Pertinent Labs 10/10 glucose 270 Nutritional Hx/Data Height 1.68 m Height (Calculated Centimeters) 167.6 Current Weight (lbs) 113.398 kg Weight (Calculated Kilograms) 113.4 Weight (Calculated Grams) 757384.1 [place] Body Weight 130 Body Mass Index (BMI) 40.3 Weight Status Morbidly Obese GI Symptoms GI Symptoms None Last BM none Difficult in: None Skin Integrity/Comment: RT. knee surgery scar,redness to coccyx area mitul 15 Estimated Nutritional Goals BEE in Kcals: Adj wt of IBW Calories/Kcals/Kg 25-30 Kcals Calculated 3658-5513 Protein: Adj wt of IBW Protein g/k Protein Calculated 73 Fluid: ml 1825-2190ml (1ml/kcal) Nutritional Problem 1. Problem Problem altered nutrition related labs Etiology hyperglycemia Signs/Symptoms: gluocse 270 at admission Malnutrition Alert Is there a minimum of two criteria No selected? Query Text:Check all the applicable criteria. A minimum of two criteria are recommended for diagnosis of either severe or non-severe malnutrition. Malnutrition Related to Morbid Obesity Malnutrition related to morbid obesity No Intervention/Recommendation Comments 1. Continue with [facility] diet as ordered. Diet preference updated. 2. Monitor PO intake, wt, labs and skin integrity 3. F/U as low risk in 7 days Expected Outcomes/Goals Expected Outcomes/Goals 1. PO intake to meet at least 75% of nutritional needs. 2. Wt stability, skin to remain intact, labs to approach WNL.
--- NOTE | 2018-10-20 23:04 | Progress Notes ---
DATE: 10/20/2018 FOLLOWUP PROGRESS NOTE PROGRESS ON THE UNIT: Case discussed with staff of the patient, reviewed records. The patient continues to have episodes of irritability, anger. She continues to be unpredictable, impulsive, needing redirection, with episodes of agitation and anger outbursts. The staff is working on placement. She wants specifically to go to [facility] because her boyfriend lives in that area. Sleeping well, eating well. No side effects to the medication, no sedation, no nausea. We will continue to work with the patient in group therapy and milieu therapy, adjust the medication as needed. JOB# [id number]
[2018-10-21] MEDS: INSULIN LISPRO SLIDING SCALE 100 UNITS/ML UNIT SUBQ SCH ×4 (06:38→21:22)
[2018-10-21] MEDS: APAP/Oxycodone 5/325mg Tab PO PRN ×4 (06:39→21:21)
[2018-10-21] MEDS: Pantoprazole 40 mg/Packet PO SCH (08:30)
[2018-10-21] MEDS: Multivitamin w/ Minerals Tab PO SCH (08:30)
[2018-10-21] MEDS: Aspirin 81mg Chewable Tab PO SCH (08:30)
--- NOTE | 2018-10-21 18:26 | Internal Medicine Prog Note ---
Internal Medicine Subjective - Subjective Service Date: 10/21/18 Patient is:: awake, agitated, other (poor insight, continues to resist care.) Patient Complaints of:: other (anxious and depressed.) Per staff patient has:: no adverse event, no episodes of fall, noncompliant, refusing care Internal Medicine Objective - Results Result Diagrams: 10/10/18 13:08 10/10/18 13:08 Recent Labs: Laboratory Last Values WBC 7.0 Th/cmm (4.8-10.8) 10/10/18 13:08 RBC 4.00 Mil/cmm (3.80-5.20) 10/10/18 13:08 Hgb 9.9 gm/dL (12-16) L 10/10/18 13:08 Hct 29.9 % (41.0-60) L 10/10/18 13:08 MCV 74.6 fl (81-100) L 10/10/18 13:08 MCH 24.6 pg (27.0-31.0) L 10/10/18 13:08 MCHC Differential 33.0 pg (28.0-36.0) 10/10/18 13:08 RDW 14.6 % (11.5-20.0) 10/10/18 13:08 Plt Count 273 Th/cmm (150-400) 10/10/18 13:08 MPV 6.4 fl 10/10/18 13:08 Neutrophils % 71.8 % (40.0-80.0) 10/10/18 13:08 Lymphocytes % 18.6 % (20.0-50.0) L 10/10/18 13:08 Monocytes % 7.6 % (2.0-10.0) 10/10/18 13:08 Eosinophils % 1.3 % (0.0-5.0) 10/10/18 13:08 Basophils % 0.7 % (0.0-2.0) 10/10/18 13:08 Sodium 137 mEq/L (136-145) 10/10/18 13:08 Potassium 3.9 mEq/L (3.5-5.1) 10/10/18 13:08 Chloride 104 mEq/L (98-107) 10/10/18 13:08 Carbon Dioxide 24.9 mEq/L (21.0-31.0) 10/10/18 13:08 Anion Gap 12.0 (7.0-16.0) 10/10/18 13:08 BUN 16 mg/dL (7-25) 10/10/18 13:08 Creatinine 1.0 mg/dL (0.6-1.2) 10/10/18 13:08 Est GFR ( Amer) > 60.0 ml/min (>90) 10/10/18 13:08 Est GFR (Non-Af Amer) 58.8 ml/min 10/10/18 13:08 BUN/Creatinine Ratio 16.0 10/10/18 13:08 Glucose 270 mg/dL (70-105) H 10/10/18 13:08 POC Glucose 131 MG/DL (70 - 105) H 10/19/18 20:05 Calcium 9.0 mg/dL (8.6-10.3) 10/10/18 13:08 Total Bilirubin 0.3 mg/dL (0.3-1.0) 10/10/18 13:08 AST 19 U/L (13-39) 10/10/18 13:08 ALT 17 U/L (7-52) 10/10/18 13:08 Alkaline Phosphatase 87 U/L (34-104) 10/10/18 13:08 Total Protein 6.3 gm/dL (6.0-8.3) 10/10/18 13:08 Albumin 3.7 gm/dL (3.7-5.3) 10/10/18 13:08 Globulin 2.6 gm/dL 10/10/18 13:08 Albumin/Globulin Ratio 1.4 (1.0-1.8) 10/10/18 13:08 Urine Source CLEAN C 10/10/18 13:34 Urine Color YELLOW 10/10/18 13:34 Urine Clarity CLEAR (CLEAR) 10/10/18 13:34 Urine pH 5.5 (4.6 - 8.0) 10/10/18 13:34 Ur Specific [place] 1.025 (1.005-1.030) 10/10/18 13:34 Urine Protein NEGATIVE mg/dL (NEGATIVE) 10/10/18 13:34 Urine Glucose (UA) NEGATIVE mg/dL (NEGATIVE) 10/10/18 13:34 Urine Ketones NEGATIVE mg/dL (NEGATIVE) 10/10/18 13:34 Urine Blood NEGATIVE (NEGATIVE) 10/10/18 13:34 Urine Nitrate NEGATIVE (NEGATIVE) 10/10/18 13:34 Urine Bilirubin NEGATIVE (NEGATIVE) 10/10/18 13:34 Urine Urobilinogen 0.2 E.U./dL (0.2 - 1.0) 10/10/18 13:34 Ur Leukocyte Esterase NEGATIVE (NEGATIVE) 10/10/18 13:34 Urine RBC 0-2 /hpf (0-5) 10/10/18 13:34 Urine WBC 2-5 /hpf (0-5) 10/10/18 13:34 Ur Epithelial Cells MODERATE /lpf (FEW) 10/10/18 13:34 Urine Bacteria FEW /hpf (NONE SEEN) 10/10/18 13:34 - Physical Exam Vitals and I&O: Vital Signs Temp 97.8 F 10/21/18 14:00 Pulse 58 10/21/18 16:29 Resp 18 10/21/18 14:00 BP 127/61 10/21/18 14:00 Pulse Ox 96 10/21/18 14:00 Intake & Output 10/20/18 10/21/18 10/21/18 18:59 06:59 18:59 Intake Total 1200 120 Balance 1200 120 Intake: Oral 1200 120 Other: # Voids 3 # Bowel Movements 2 Active Medications: Current Medications Acetaminophen (Tylenol) 650 mg PO Q4HR PRN PRN Reason: Mild Pain / Temp above 100 Stop: 12/09/18 19:59 Amiodarone HCl (Cordarone) 200 mg PO BID [facility] Stop: 12/10/18 08:59 Last Admin: 10/21/18 16:28 Dose: Not Given Amlodipine Besylate (Norvasc) 10 mg PO DAILY [facility] Stop: 12/10/18 08:59 Last Admin: 10/21/18 09:20 Dose: Not Given Ascorbic Acid (Vitamin C) 500 mg PO DAILY [facility] Stop: 12/10/18 08:59 Last Admin: 10/21/18 08:30 Dose: 500 mg Aspirin (Aspirin Chewable) 81 mg PO DAILY [facility] Stop: 12/10/18 08:59 Last Admin: 10/21/18 08:30 Dose: 81 mg Dextrose (D50w) 50 ml IVP PRN PRN PRN Reason: BS below 70&not tolerate po Stop: 12/10/18 10:24 Dextrose (Glutose 40%) 18.75 gm PO PRN PRN PRN Reason: BS below 70 & tolerate po Stop: 12/10/18 10:24 Digoxin (Lanoxin) 0.25 mg PO DAILY [facility] Stop: 12/10/18 08:59 Last Admin: 10/21/18 16:29 Dose: Not Given Docusate Sodium (Colace) 100 mg PO BID [facility] Stop: 12/10/18 08:59 Last Admin: 10/21/18 16:11 Dose: 100 mg Escitalopram Oxalate (Lexapro) 20 mg PO DAILY [facility]; Protocol Stop: 12/10/18 08:59 Last Admin: 10/21/18 08:30 Dose: 20 mg Glucagon (Glucagen) 1 mg IM PRN PRN PRN Reason: BS below 70&dextrose ineffecti Stop: 12/10/18 10:24 Insulin Human Lispro (Humalog Insulin Sliding Scale) 0 units SUBQ ACHS [facility]; Protocol Stop: 12/10/18 11:29 Last Admin: 10/21/18 18:12 Dose: Not Given Lorazepam (Ativan) 0.5 mg PO Q4H PRN; Protocol PRN Reason: Anxiety Stop: 12/09/18 19:59 Metformin HCl (Glucophage) 500 mg PO BIDWM [facility] Stop: 12/10/18 07:59 Last Admin: 10/21/18 18:13 Dose: 500 mg Oxybutynin Chloride (Ditropan) 5 mg PO DAILY [facility] Stop: 12/10/18 08:59 Last Admin: 10/21/18 08:30 Dose: 5 mg Oxycodone/Acetaminophen (Percocet 5/325mg Oral Tab) 1 tab PO Q4H PRN PRN Reason: Pain (Severe) Stop: 12/17/18 08:09 Last Admin: 10/21/18 16:11 Dose: 1 tab Pantoprazole Sodium (Protonix) 40 mg PO DAILY [facility] Stop: 12/10/18 08:59 Last Admin: 10/21/18 08:30 Dose: 40 mg Quetiapine Fumarate 100 mg/ (Quetiapine Fumarate 50 mg) 150 mg PO HS [facility] Stop: 12/20/18 20:59 Rivaroxaban (Xarelto) 20 mg PO DAILY [facility] Stop: 12/10/18 08:59 Last Admin: 10/21/18 08:30 Dose: 20 mg Senna (Senna) 8.6 mg PO DAILY [facility] Stop: 12/10/18 08:59 Last Admin: 10/21/18 08:30 Dose: 8.6 mg Sitagliptin Phosphate (Januvia) 100 mg PO QDAC [facility] Stop: 12/10/18 07:29 Last Admin: 10/21/18 06:39 Dose: 100 mg Zolpidem Tartrate (Ambien) 5 mg PO HS PRN PRN Reason: Insomnia Stop: 12/09/18 18:50 Last Admin: 10/20/18 21:55 Dose: 5 mg General: lethargic HEENT: NC/AT, PERRLA Neck: Supple, No JVD Lungs: CTAB Cardiovascular: RRR, Normal S1 Abdomen: soft, non-tender Extremities: other (back sores.) Neurological: no change, unsteady Internal Medicine Assmt/Plan - Assessment Assessment: Refusing Care 5150 Hold. Diabetes. Afib. Bipolar disorder. Depressed mood. Anxiety. Copd. Hypertension. Osteoarthritis. Pressure sores. - Plan Plan: fall precautions cpm Nutritional Asmnt/Malnutr-PDOC - Dietary Evaluation Malnutrition Findings (Please click <Entered> for more info): Nutritional Asmnt/Malnutrition Start: 10/11/18 14: 22 Text: Status: Complete Freq: Protocol: Document 10/11/18 14:22 LCHENG (Rec: 10/11/18 14:31 [email or web address] [email or web address]) Nutritional Asmnt/Malnutrition Patient General Information Nutritional Screening High Risk Diagnosis psychosis Pertinent Medical Hx/Surgical Hx HTN, DM, asthma/COPD, arthritis, afib, knee and rt shoulder surger, csection Subjective Information Pt seen eating lunch in bed at time of visit. Food preference provided to RD. Pt asked for real sugar. Explained to pt that she is on [facility] diet and the benifits for diabetes. Pt stated her blood sugar is fine. Glucose 270 at admission noted. Pt appeared not interested in diabetic education. Per EMR, pt consumed 50% of breakfast today. Current Diet Order/ Nutrition Support [facility] Pertinent Medications vit C, colace, glucophage, protonix, senna, januvia Pertinent Labs 10/10 glucose 270 Nutritional Hx/Data Height 5 ft 6 in Height (Calculated Centimeters) 167.6 Current Weight (lbs) 250 lb Weight (Calculated Kilograms) 113.4 Weight (Calculated Grams) 108594.1 [place] Body Weight 130 Body Mass Index (BMI) 40.3 Weight Status Morbidly Obese GI Symptoms GI Symptoms None Last BM none Difficult in: None Skin Integrity/Comment: RT. knee surgery scar,redness to coccyx area mitul 15 Estimated Nutritional Goals BEE in Kcals: Adj wt of IBW Calories/Kcals/Kg 25-30 Kcals Calculated 7803-5051 Protein: Adj wt of IBW Protein g/k Protein Calculated 73 Fluid: ml 1825-2190ml (1ml/kcal) Nutritional Problem 1. Problem Problem altered nutrition related labs Etiology hyperglycemia Signs/Symptoms: gluocse 270 at admission Malnutrition Alert Is there a minimum of two criteria No selected? Query Text:Check all the applicable criteria. A minimum of two criteria are recommended for diagnosis of either severe or non-severe malnutrition. Malnutrition Related to Morbid Obesity Malnutrition related to morbid obesity No Intervention/Recommendation Comments 1. Continue with [facility] diet as ordered. Diet preference updated. 2. Monitor PO intake, wt, labs and skin integrity 3. F/U as low risk in 7 days Expected Outcomes/Goals Expected Outcomes/Goals 1. PO intake to meet at least 75% of nutritional needs. 2. Wt stability, skin to remain intact, labs to approach WNL.
--- NOTE | 2018-10-21 18:30 | Progress Notes ---
DATE: 10/21/2018 SUBJECTIVE: Chart reviewed and the patient interviewed. Also discussed the patient's condition with the staff and reviewed records and labs. The patient remains in a depressed mood. The patient also is anxious and is withdrawn. She also is interacting minimally with peers and with others. The patient also is denying any thoughts of suicide or homicide and she is cooperative with her treatment. Otherwise, the patient is compliant with taking her medications with no side effects of medications. ASSESSMENT: The patient is still depressed and is still waiting for placement. TREATMENT PLAN: We will continue to monitor her behavior and her condition closely. Also, continue to work on her ineffective coping and will continue to follow up. [facility]# [id number]
[2018-10-22] MEDS: APAP/Oxycodone 5/325mg Tab PO PRN ×5 (05:45→22:00)
[2018-10-22] MEDS: INSULIN LISPRO SLIDING SCALE 100 UNITS/ML UNIT SUBQ SCH ×4 (06:34→20:25)
--- NOTE | 2018-10-22 06:40 | Progress Notes ---
DATE: SUBJECTIVE: Chart was reviewed and the patient interviewed. Also discussed the patient's condition with the staff and reviewed records and labs. The patient is still depressed and withdrawn. The patient also is still guarded and resisting care and needs redirections. The patient also is easily agitated at times. Otherwise, the patient is cooperative to taking her medications, but she is still asking for more pain medications. ASSESSMENT: The patient is still agitated and still seemed to be depressed. [facility]# [id number]
[2018-10-22] MEDS: Aspirin 81mg Chewable Tab PO SCH (09:07)
[2018-10-22] MEDS: Multivitamin w/ Minerals Tab PO SCH (09:09)
[2018-10-22] MEDS: Pantoprazole 40 mg/Packet PO SCH ×2 (09:10→09:17)
--- NOTE | 2018-10-22 11:08 | Internal Medicine Prog Note ---
Internal Medicine Subjective - Subjective Service Date: 10/22/18 Patient seen and examined:: with staff Patient is:: awake, agitated, other (poor insight, continues to resist care.) Patient Complaints of:: other (still in depressed mood.) Per staff patient has:: no adverse event, no episodes of fall, noncompliant, refusing care Internal Medicine Objective - Results Result Diagrams: 10/10/18 13:08 10/10/18 13:08 Recent Labs: Laboratory Last Values WBC 7.0 Th/cmm (4.8-10.8) 10/10/18 13:08 RBC 4.00 Mil/cmm (3.80-5.20) 10/10/18 13:08 Hgb 9.9 gm/dL (12-16) L 10/10/18 13:08 Hct 29.9 % (41.0-60) L 10/10/18 13:08 MCV 74.6 fl (81-100) L 10/10/18 13:08 MCH 24.6 pg (27.0-31.0) L 10/10/18 13:08 MCHC Differential 33.0 pg (28.0-36.0) 10/10/18 13:08 RDW 14.6 % (11.5-20.0) 10/10/18 13:08 Plt Count 273 Th/cmm (150-400) 10/10/18 13:08 MPV 6.4 fl 10/10/18 13:08 Neutrophils % 71.8 % (40.0-80.0) 10/10/18 13:08 Lymphocytes % 18.6 % (20.0-50.0) L 10/10/18 13:08 Monocytes % 7.6 % (2.0-10.0) 10/10/18 13:08 Eosinophils % 1.3 % (0.0-5.0) 10/10/18 13:08 Basophils % 0.7 % (0.0-2.0) 10/10/18 13:08 Sodium 137 mEq/L (136-145) 10/10/18 13:08 Potassium 3.9 mEq/L (3.5-5.1) 10/10/18 13:08 Chloride 104 mEq/L (98-107) 10/10/18 13:08 Carbon Dioxide 24.9 mEq/L (21.0-31.0) 10/10/18 13:08 Anion Gap 12.0 (7.0-16.0) 10/10/18 13:08 BUN 16 mg/dL (7-25) 10/10/18 13:08 Creatinine 1.0 mg/dL (0.6-1.2) 10/10/18 13:08 Est GFR ( Amer) > 60.0 ml/min (>90) 10/10/18 13:08 Est GFR (Non-Af Amer) 58.8 ml/min 10/10/18 13:08 BUN/Creatinine Ratio 16.0 10/10/18 13:08 Glucose 270 mg/dL (70-105) H 10/10/18 13:08 POC Glucose 131 MG/DL (70 - 105) H 10/19/18 20:05 Calcium 9.0 mg/dL (8.6-10.3) 10/10/18 13:08 Total Bilirubin 0.3 mg/dL (0.3-1.0) 10/10/18 13:08 AST 19 U/L (13-39) 10/10/18 13:08 ALT 17 U/L (7-52) 10/10/18 13:08 Alkaline Phosphatase 87 U/L (34-104) 10/10/18 13:08 Total Protein 6.3 gm/dL (6.0-8.3) 10/10/18 13:08 Albumin 3.7 gm/dL (3.7-5.3) 10/10/18 13:08 Globulin 2.6 gm/dL 10/10/18 13:08 Albumin/Globulin Ratio 1.4 (1.0-1.8) 10/10/18 13:08 Urine Source CLEAN C 10/10/18 13:34 Urine Color YELLOW 10/10/18 13:34 Urine Clarity CLEAR (CLEAR) 10/10/18 13:34 Urine pH 5.5 (4.6 - 8.0) 10/10/18 13:34 Ur Specific [place] 1.025 (1.005-1.030) 10/10/18 13:34 Urine Protein NEGATIVE mg/dL (NEGATIVE) 10/10/18 13:34 Urine Glucose (UA) NEGATIVE mg/dL (NEGATIVE) 10/10/18 13:34 Urine Ketones NEGATIVE mg/dL (NEGATIVE) 10/10/18 13:34 Urine Blood NEGATIVE (NEGATIVE) 10/10/18 13:34 Urine Nitrate NEGATIVE (NEGATIVE) 10/10/18 13:34 Urine Bilirubin NEGATIVE (NEGATIVE) 10/10/18 13:34 Urine Urobilinogen 0.2 E.U./dL (0.2 - 1.0) 10/10/18 13:34 Ur Leukocyte Esterase NEGATIVE (NEGATIVE) 10/10/18 13:34 Urine RBC 0-2 /hpf (0-5) 10/10/18 13:34 Urine WBC 2-5 /hpf (0-5) 10/10/18 13:34 Ur Epithelial Cells MODERATE /lpf (FEW) 10/10/18 13:34 Urine Bacteria FEW /hpf (NONE SEEN) 10/10/18 13:34 - Physical Exam Vitals and I&O: Vital Signs Temp 98.2 F 10/22/18 06:09 Pulse 58 10/22/18 09:11 Resp 18 10/22/18 06:09 BP 131/65 10/22/18 09:08 Pulse Ox 98 10/22/18 06:09 Intake & Output 10/21/18 10/22/18 10/22/18 18:59 06:59 18:59 Intake Total 2800 120 Balance 2800 120 Intake: Oral 2800 120 Other: # Voids 5 3 # Bowel Movements 0 Active Medications: Current Medications Acetaminophen (Tylenol) 650 mg PO Q4HR PRN PRN Reason: Mild Pain / Temp above 100 Stop: 12/09/18 19:59 Amiodarone HCl (Cordarone) 200 mg PO BID [facility] Stop: 12/10/18 08:59 Last Admin: 10/22/18 09:10 Dose: Not Given Amlodipine Besylate (Norvasc) 10 mg PO DAILY [facility] Stop: 12/10/18 08:59 Last Admin: 10/22/18 09:08 Dose: 10 mg Ascorbic Acid (Vitamin C) 500 mg PO DAILY [facility] Stop: 12/10/18 08:59 Last Admin: 10/22/18 09:11 Dose: 500 mg Aspirin (Aspirin Chewable) 81 mg PO DAILY [facility] Stop: 12/10/18 08:59 Last Admin: 10/22/18 09:07 Dose: 81 mg Dextrose (D50w) 50 ml IVP PRN PRN PRN Reason: BS below 70&not tolerate po Stop: 12/10/18 10:24 Dextrose (Glutose 40%) 18.75 gm PO PRN PRN PRN Reason: BS below 70 & tolerate po Stop: 12/10/18 10:24 Digoxin (Lanoxin) 0.25 mg PO DAILY [facility] Stop: 12/10/18 08:59 Last Admin: 10/22/18 09:11 Dose: Not Given Docusate Sodium (Colace) 100 mg PO BID [facility] Stop: 12/10/18 08:59 Last Admin: 10/22/18 09:10 Dose: 100 mg Escitalopram Oxalate (Lexapro) 20 mg PO DAILY [facility]; Protocol Stop: 12/10/18 08:59 Last Admin: 10/22/18 09:07 Dose: 20 mg Glucagon (Glucagen) 1 mg IM PRN PRN PRN Reason: BS below 70&dextrose ineffecti Stop: 12/10/18 10:24 Insulin Human Lispro (Humalog Insulin Sliding Scale) 0 units SUBQ ACHS [facility]; Protocol Stop: 12/10/18 11:29 Last Admin: 10/22/18 06:34 Dose: Not Given Lorazepam (Ativan) 0.5 mg PO Q4H PRN; Protocol PRN Reason: Anxiety Stop: 12/09/18 19:59 Metformin HCl (Glucophage) 500 mg PO BIDWM [facility] Stop: 12/10/18 07:59 Last Admin: 10/22/18 09:07 Dose: 500 mg Oxybutynin Chloride (Ditropan) 5 mg PO DAILY [facility] Stop: 12/10/18 08:59 Last Admin: 10/22/18 09:07 Dose: 5 mg Oxycodone/Acetaminophen (Percocet 5/325mg Oral Tab) 1 tab PO Q4H PRN PRN Reason: Pain (Severe) Stop: 12/17/18 08:09 Last Admin: 10/22/18 10:08 Dose: 1 tab Pantoprazole Sodium (Protonix) 40 mg PO DAILY [facility] Stop: 12/22/18 08:59 Quetiapine Fumarate 100 mg/ (Quetiapine Fumarate 50 mg) 150 mg PO HS [facility] Stop: 12/20/18 20:59 Last Admin: 10/21/18 21:21 Dose: 150 mg Rivaroxaban (Xarelto) 20 mg PO DAILY [facility] Stop: 12/10/18 08:59 Last Admin: 10/22/18 09:07 Dose: 20 mg Senna (Senna) 8.6 mg PO DAILY [facility] Stop: 12/10/18 08:59 Last Admin: 10/22/18 09:10 Dose: 8.6 mg Sitagliptin Phosphate (Januvia) 100 mg PO QDAC [facility] Stop: 12/10/18 07:29 Last Admin: 10/22/18 06:35 Dose: 100 mg Zolpidem Tartrate (Ambien) 5 mg PO HS PRN PRN Reason: Insomnia Stop: 12/09/18 18:50 Last Admin: 10/21/18 21:54 Dose: 5 mg Physical Exam: 68 y/o patient is gravely disabled and continues to refuse local skin care as well as medical care. Patient has poor insight,unpredictable and very depressed. Patient will continue to be treated and monitored. General: lethargic HEENT: NC/AT, PERRLA Neck: Supple, No JVD Lungs: CTAB Cardiovascular: RRR, Normal S1 Abdomen: soft, non-tender Extremities: other (back sores.) Neurological: no change, unsteady Internal Medicine Assmt/Plan - Assessment Assessment: Refusing Care 5150 Hold. Diabetes. Afib. Bipolar disorder. Depressed mood. Anxiety. Copd. Hypertension. Osteoarthritis. Pressure sores. - Plan Plan: Continuation of care. Psych followup/management. Monitor Labs. Continue present meds as directed. Monitor Diet/Nutritional support. Local skin care and wound care. Pain Management. Physical therapy. Occupational therapy. Safety precaution. Supportive care. Fall precaution, frequent nursing rounds, and as needed restraints to prevent fall. Continue collaborating with consulting specialists, case management and nursing team. Will Monitor patient and continue present care management. Nutritional Asmnt/Malnutr-PDOC - Dietary Evaluation Malnutrition Findings (Please click <Entered> for more info): Nutritional Asmnt/Malnutrition Start: 10/11/18 14: 22 Text: Status: Complete Freq: Protocol: Document 10/11/18 14:22 LCHENG (Rec: 10/11/18 14:31 LCHENG [email or web address]) Nutritional Asmnt/Malnutrition Patient General Information Nutritional Screening High Risk Diagnosis psychosis Pertinent Medical Hx/Surgical Hx HTN, DM, asthma/COPD, arthritis, afib, knee and rt shoulder surger, csection Subjective Information Pt seen eating lunch in bed at time of visit. Food preference provided to RD. Pt asked for real sugar. Explained to pt that she is on [facility] diet and the benifits for diabetes. Pt stated her blood sugar is fine. Glucose 270 at admission noted. Pt appeared not interested in diabetic education. Per EMR, pt consumed 50% of breakfast today. Current Diet Order/ Nutrition Support [facility] Pertinent Medications vit C, colace, glucophage, protonix, senna, januvia Pertinent Labs 10/10 glucose 270 Nutritional Hx/Data Height 1.68 m Height (Calculated Centimeters) 167.6 Current Weight (lbs) 113.398 kg Weight (Calculated Kilograms) 113.4 Weight (Calculated Grams) 026492.1 [place] Body Weight 130 Body Mass Index (BMI) 40.3 Weight Status Morbidly Obese GI Symptoms GI Symptoms None Last BM none Difficult in: None Skin Integrity/Comment: RT. knee surgery scar,redness to coccyx area mitul 15 Estimated Nutritional Goals BEE in Kcals: Adj wt of IBW Calories/Kcals/Kg 25-30 Kcals Calculated 8994-5799 Protein: Adj wt of IBW Protein g/k Protein Calculated 73 Fluid: ml 1825-2190ml (1ml/kcal) Nutritional Problem 1. Problem Problem altered nutrition related labs Etiology hyperglycemia Signs/Symptoms: gluocse 270 at admission Malnutrition Alert Is there a minimum of two criteria No selected? Query Text:Check all the applicable criteria. A minimum of two criteria are recommended for diagnosis of either severe or non-severe malnutrition. Malnutrition Related to Morbid Obesity Malnutrition related to morbid obesity No Intervention/Recommendation Comments 1. Continue with [facility] diet as ordered. Diet preference updated. 2. Monitor PO intake, wt, labs and skin integrity 3. F/U as low risk in 7 days Expected Outcomes/Goals Expected Outcomes/Goals 1. PO intake to meet at least 75% of nutritional needs. 2. Wt stability, skin to remain intact, labs to approach WNL.
[2018-10-23] MEDS: APAP/Oxycodone 5/325mg Tab PO PRN ×4 (06:04→19:25)
[2018-10-23] MEDS: INSULIN LISPRO SLIDING SCALE 100 UNITS/ML UNIT SUBQ SCH ×4 (06:29→20:31)
--- NOTE | 2018-10-23 08:22 | Progress Notes ---
DATE: 10/23/2018 DATE OF SERVICE: 10/23/2018 SUBJECTIVE: The patient was seen in her room. The patient is asleep, but easily arousable. The patient still has episodes of isolation, withdrawn, and depressed, low energy, low motivation, appears to be guarded with episodes of refusing care. Otherwise, the patient appears to be in no acute distress. OBJECTIVE: VITAL SIGNS: Temperature 97.2, heart rate 60, respirations 18, blood pressure 119/71, 96% on room air. HEENT: Head is atraumatic and normocephalic. EYES: Bilateral conjunctivae are clear. Bilateral pupils are equally round and reactive. NECK: Supple. No JVD. CARDIOVASCULAR: S1 and S2, without murmur. PULMONARY: Clear to auscultation. GASTROINTESTINAL: Soft and nontender without guarding. Positive bowel sounds. MUSCULOSKELETAL: No clubbing. No cyanosis noted. ASSESSMENT: 1. Bipolar disorder. 2. Atrial fibrillation. 3. Diabetes. 4. Osteoarthritis. 5. Overactive bladder. 6. Hypertension. PLAN: We will continue to keep the patient to Inpatient Psych[facility] Unit. We will follow up with a psychiatrist to monitor the patient's condition and behavior. Treatment plans were discussed with the patient's nurse. Treatment plans were discussed with Dr. Lewis. JOB# [id number]
[2018-10-23] MEDS: Pantoprazole 40 mg EC Tab PO SCH (08:36)
[2018-10-23] MEDS: Multivitamin w/ Minerals Tab PO SCH (08:39)
[2018-10-23] MEDS: Aspirin 81mg Chewable Tab PO SCH (08:39)
--- NOTE | 2018-10-23 19:06 | Progress Notes ---
DATE: 10/23/2018 DATE OF SERVICE: 10/23/2018 SUBJECTIVE: Chart was reviewed and the patient interviewed. Also discussed the patient's condition with the staff and reviewed records and labs. The patient continued to be anxious and in a depressed mood because of her long hospital stay and because no place wants to take her. The patient also is still guarded and is still demanding and uncooperative at times with her ADLs and her needs, but at the same time easier than before. She also is compliant with taking her medications and the patient denies any side effects of medications. ASSESSMENT: The patient is still depressed. TREATMENT PLAN: Continue to monitor her behavior and her condition closely. Also, continue to work with case filler in regard to discharge plans and placement issue. JOB# [id number]
[2018-10-24] MEDS: APAP/Oxycodone 5/325mg Tab PO PRN ×5 (00:29→19:49)
[2018-10-24] MEDS: INSULIN LISPRO SLIDING SCALE 100 UNITS/ML UNIT SUBQ SCH ×4 (06:29→20:56)
[2018-10-24] MEDS: Aspirin 81mg Chewable Tab PO SCH (08:42)
[2018-10-24] MEDS: Pantoprazole 40 mg EC Tab PO SCH (08:43)
[2018-10-24] MEDS: Multivitamin w/ Minerals Tab PO SCH (08:45)
--- NOTE | 2018-10-24 16:47 | Internal Medicine Prog Note ---
Internal Medicine Subjective - Subjective Patient is:: awake, verbal, talking, agitated, other (poor insight, continues to resist care.) Patient Complaints of:: other (still in depressed mood.) Per staff patient has:: no adverse event, no episodes of fall, noncompliant, refusing care Internal Medicine Objective - Results Result Diagrams: 10/10/18 13:08 10/10/18 13:08 Recent Labs: Laboratory Last Values WBC 7.0 Th/cmm (4.8-10.8) 10/10/18 13:08 RBC 4.00 Mil/cmm (3.80-5.20) 10/10/18 13:08 Hgb 9.9 gm/dL (12-16) L 10/10/18 13:08 Hct 29.9 % (41.0-60) L 10/10/18 13:08 MCV 74.6 fl (81-100) L 10/10/18 13:08 MCH 24.6 pg (27.0-31.0) L 10/10/18 13:08 MCHC Differential 33.0 pg (28.0-36.0) 10/10/18 13:08 RDW 14.6 % (11.5-20.0) 10/10/18 13:08 Plt Count 273 Th/cmm (150-400) 10/10/18 13:08 MPV 6.4 fl 10/10/18 13:08 Neutrophils % 71.8 % (40.0-80.0) 10/10/18 13:08 Lymphocytes % 18.6 % (20.0-50.0) L 10/10/18 13:08 Monocytes % 7.6 % (2.0-10.0) 10/10/18 13:08 Eosinophils % 1.3 % (0.0-5.0) 10/10/18 13:08 Basophils % 0.7 % (0.0-2.0) 10/10/18 13:08 Sodium 137 mEq/L (136-145) 10/10/18 13:08 Potassium 3.9 mEq/L (3.5-5.1) 10/10/18 13:08 Chloride 104 mEq/L (98-107) 10/10/18 13:08 Carbon Dioxide 24.9 mEq/L (21.0-31.0) 10/10/18 13:08 Anion Gap 12.0 (7.0-16.0) 10/10/18 13:08 BUN 16 mg/dL (7-25) 10/10/18 13:08 Creatinine 1.0 mg/dL (0.6-1.2) 10/10/18 13:08 Est GFR ( Amer) > 60.0 ml/min (>90) 10/10/18 13:08 Est GFR (Non-Af Amer) 58.8 ml/min 10/10/18 13:08 BUN/Creatinine Ratio 16.0 10/10/18 13:08 Glucose 270 mg/dL (70-105) H 10/10/18 13:08 POC Glucose 116 MG/DL (70 - 105) H 10/24/18 06:01 Calcium 9.0 mg/dL (8.6-10.3) 10/10/18 13:08 Total Bilirubin 0.3 mg/dL (0.3-1.0) 10/10/18 13:08 AST 19 U/L (13-39) 10/10/18 13:08 ALT 17 U/L (7-52) 10/10/18 13:08 Alkaline Phosphatase 87 U/L (34-104) 10/10/18 13:08 Total Protein 6.3 gm/dL (6.0-8.3) 10/10/18 13:08 Albumin 3.7 gm/dL (3.7-5.3) 10/10/18 13:08 Globulin 2.6 gm/dL 10/10/18 13:08 Albumin/Globulin Ratio 1.4 (1.0-1.8) 10/10/18 13:08 Urine Source CLEAN C 10/10/18 13:34 Urine Color YELLOW 10/10/18 13:34 Urine Clarity CLEAR (CLEAR) 10/10/18 13:34 Urine pH 5.5 (4.6 - 8.0) 10/10/18 13:34 Ur Specific [place] 1.025 (1.005-1.030) 10/10/18 13:34 Urine Protein NEGATIVE mg/dL (NEGATIVE) 10/10/18 13:34 Urine Glucose (UA) NEGATIVE mg/dL (NEGATIVE) 10/10/18 13:34 Urine Ketones NEGATIVE mg/dL (NEGATIVE) 10/10/18 13:34 Urine Blood NEGATIVE (NEGATIVE) 10/10/18 13:34 Urine Nitrate NEGATIVE (NEGATIVE) 10/10/18 13:34 Urine Bilirubin NEGATIVE (NEGATIVE) 10/10/18 13:34 Urine Urobilinogen 0.2 E.U./dL (0.2 - 1.0) 10/10/18 13:34 Ur Leukocyte Esterase NEGATIVE (NEGATIVE) 10/10/18 13:34 Urine RBC 0-2 /hpf (0-5) 10/10/18 13:34 Urine WBC 2-5 /hpf (0-5) 10/10/18 13:34 Ur Epithelial Cells MODERATE /lpf (FEW) 10/10/18 13:34 Urine Bacteria FEW /hpf (NONE SEEN) 10/10/18 13:34 - Physical Exam Vitals and I&O: Vital Signs Temp 97.0 F 10/24/18 14:00 Pulse 62 10/24/18 14:00 Resp 20 10/24/18 14:00 BP 133/73 10/24/18 14:00 Pulse Ox 95 10/24/18 14:00 Intake & Output 10/23/18 10/24/18 10/24/18 18:59 06:59 18:59 Intake Total 1450 480 Balance 1450 480 Intake: Oral 1450 480 Other: # Voids 6 2 # Bowel Movements 0 0 Active Medications: Current Medications Acetaminophen (Tylenol) 650 mg PO Q4HR PRN PRN Reason: Mild Pain / Temp above 100 Stop: 12/09/18 19:59 Amiodarone HCl (Cordarone) 200 mg PO BID [facility] Stop: 12/10/18 08:59 Last Admin: 10/24/18 09:00 Dose: Not Given Amlodipine Besylate (Norvasc) 10 mg PO DAILY [facility] Stop: 12/10/18 08:59 Last Admin: 10/24/18 09:01 Dose: 10 mg Ascorbic Acid (Vitamin C) 500 mg PO DAILY [facility] Stop: 12/10/18 08:59 Last Admin: 10/24/18 08:41 Dose: 500 mg Aspirin (Aspirin Chewable) 81 mg PO DAILY [facility] Stop: 12/10/18 08:59 Last Admin: 10/24/18 08:42 Dose: 81 mg Dextrose (D50w) 50 ml IVP PRN PRN PRN Reason: BS below 70&not tolerate po Stop: 07/12/19 10:24 Dextrose (Glutose 40%) 18.75 gm PO PRN PRN PRN Reason: BS below 70 & tolerate po Stop: 12/10/18 10:24 Digoxin (Lanoxin) 0.25 mg PO DAILY [facility] Stop: 12/10/18 08:59 Last Admin: 10/24/18 09:01 Dose: Not Given Docusate Sodium (Colace) 100 mg PO BID [facility] Stop: 12/10/18 08:59 Last Admin: 10/24/18 08:41 Dose: 100 mg Escitalopram Oxalate (Lexapro) 20 mg PO DAILY [facility]; Protocol Stop: 12/10/18 08:59 Last Admin: 10/24/18 08:42 Dose: 20 mg Glucagon (Glucagen) 1 mg IM PRN PRN PRN Reason: BS below 70&dextrose ineffecti Stop: 12/10/18 10:24 Insulin Human Lispro (Humalog Insulin Sliding Scale) 0 units SUBQ ACHS [facility]; Protocol Stop: 12/10/18 11:29 Last Admin: 10/24/18 11:54 Dose: Not Given Lorazepam (Ativan) 0.5 mg PO Q4H PRN; Protocol PRN Reason: Anxiety Stop: 12/09/18 19:59 Metformin HCl (Glucophage) 500 mg PO BIDWM [facility] Stop: 12/10/18 07:59 Last Admin: 10/24/18 08:38 Dose: 500 mg Oxybutynin Chloride (Ditropan) 5 mg PO DAILY [facility] Stop: 12/10/18 08:59 Last Admin: 10/24/18 08:41 Dose: 5 mg Oxycodone/Acetaminophen (Percocet 5/325mg Oral Tab) 1 tab PO Q4H PRN PRN Reason: Pain (Severe) Stop: 12/17/18 08:09 Last Admin: 10/24/18 15:18 Dose: 1 tab Pantoprazole Sodium (Protonix) 40 mg PO DAILY [facility] Stop: 12/22/18 08:59 Last Admin: 10/24/18 08:43 Dose: Not Given Quetiapine Fumarate 100 mg/ (Quetiapine Fumarate 50 mg) 150 mg PO HS [facility] Stop: 12/20/18 20:59 Last Admin: 10/23/18 21:52 Dose: 150 mg Rivaroxaban (Xarelto) 20 mg PO DAILY [facility] Stop: 12/10/18 08:59 Last Admin: 10/24/18 08:41 Dose: 20 mg Senna (Senna) 8.6 mg PO DAILY [facility] Stop: 12/10/18 08:59 Last Admin: 10/24/18 08:42 Dose: 8.6 mg Sitagliptin Phosphate (Januvia) 100 mg PO QDAC [facility] Stop: 12/10/18 07:29 Last Admin: 10/24/18 06:28 Dose: 100 mg Zolpidem Tartrate (Ambien) 5 mg PO HS PRN PRN Reason: Insomnia Stop: 12/09/18 18:50 Last Admin: 10/23/18 21:52 Dose: 5 mg General: lethargic, alert, obese HEENT: NC/AT, PERRLA Neck: Supple, No JVD Lungs: CTAB, other (no acute respiratory distress) Cardiovascular: RRR Abdomen: soft, non-tender Extremities: other (back sores.) Neurological: no change, bedbound Internal Medicine Assmt/Plan - Assessment Assessment: #Bipolar disorder #Hx of afib #DM #OA #Overactive bladder #HTN - Plan Plan: Continue to keep in Inpatient Psychiatric Unit. Continue to f/u with psych recs, pt's condition and behavior Treatment plan discussed with patient's nurse. Consider changing percocet from q4hrs to q6hrs pending Dr. Lewis. Nutritional Asmnt/Malnutr-PDOC - Dietary Evaluation Malnutrition Findings (Please click <Entered> for more info): Nutritional Asmnt/Malnutrition Start: 10/11/18 14: 22 Text: Status: Complete Freq: Protocol: Document 10/11/18 14:22 LCHENG (Rec: 10/11/18 14:31 LCHENG [email or web address]) Nutritional Asmnt/Malnutrition Patient General Information Nutritional Screening High Risk Diagnosis psychosis Pertinent Medical Hx/Surgical Hx HTN, DM, asthma/COPD, arthritis, afib, knee and rt shoulder surger, csection Subjective Information Pt seen eating lunch in bed at time of visit. Food preference provided to RD. Pt asked for real sugar. Explained to pt that she is on [facility] diet and the benifits for diabetes. Pt stated her blood sugar is fine. Glucose 270 at admission noted. Pt appeared not interested in diabetic education. Per EMR, pt consumed 50% of breakfast today. Current Diet Order/ Nutrition Support [facility] Pertinent Medications vit C, colace, glucophage, protonix, senna, januvia Pertinent Labs 10/10 glucose 270 Nutritional Hx/Data Height 5 ft 6 in Height (Calculated Centimeters) 167.6 Current Weight (lbs) 250 lb Weight (Calculated Kilograms) 113.4 Weight (Calculated Grams) 305208.1 [place] Body Weight 130 Body Mass Index (BMI) 40.3 Weight Status Morbidly Obese GI Symptoms GI Symptoms None Last BM none Difficult in: None Skin Integrity/Comment: RT. knee surgery scar,redness to coccyx area mitul 15 Estimated Nutritional Goals BEE in Kcals: Adj wt of IBW Calories/Kcals/Kg 25-30 Kcals Calculated 5985-7258 Protein: Adj wt of IBW Protein g/k Protein Calculated 73 Fluid: ml 1825-2190ml (1ml/kcal) Nutritional Problem 1. Problem Problem altered nutrition related labs Etiology hyperglycemia Signs/Symptoms: gluocse 270 at admission Malnutrition Alert Is there a minimum of two criteria No selected? Query Text:Check all the applicable criteria. A minimum of two criteria are recommended for diagnosis of either severe or non-severe malnutrition. Malnutrition Related to Morbid Obesity Malnutrition related to morbid obesity No Intervention/Recommendation Comments 1. Continue with [facility] diet as ordered. Diet preference updated. 2. Monitor PO intake, wt, labs and skin integrity 3. F/U as low risk in 7 days Expected Outcomes/Goals Expected Outcomes/Goals 1. PO intake to meet at least 75% of nutritional needs. 2. Wt stability, skin to remain intact, labs to approach WNL.
[2018-10-25] MEDS: APAP/Oxycodone 5/325mg Tab PO PRN ×5 (01:50→20:59)
[2018-10-25] MEDS: INSULIN LISPRO SLIDING SCALE 100 UNITS/ML UNIT SUBQ SCH ×4 (06:58→21:02)
[2018-10-25] MEDS: Pantoprazole 40 mg EC Tab PO SCH (08:56)
[2018-10-25] MEDS: Multivitamin w/ Minerals Tab PO SCH (08:56)
[2018-10-25] MEDS: Aspirin 81mg Chewable Tab PO SCH (08:56)
--- NOTE | 2018-10-25 08:59 | Internal Medicine Prog Note ---
Internal Medicine Subjective - Subjective Service Date: 10/25/18 Patient seen and examined:: with staff Patient is:: awake, verbal, talking, agitated, other (poor insight, continues to refuse care.) Patient Complaints of:: other (still in very depressed mood.) Per staff patient has:: no adverse event, no episodes of fall, noncompliant, refusing care Internal Medicine Objective - Results Result Diagrams: 10/10/18 13:08 10/10/18 13:08 Recent Labs: Laboratory Last Values WBC 7.0 Th/cmm (4.8-10.8) 10/10/18 13:08 RBC 4.00 Mil/cmm (3.80-5.20) 10/10/18 13:08 Hgb 9.9 gm/dL (12-16) L 10/10/18 13:08 Hct 29.9 % (41.0-60) L 10/10/18 13:08 MCV 74.6 fl (81-100) L 10/10/18 13:08 MCH 24.6 pg (27.0-31.0) L 10/10/18 13:08 MCHC Differential 33.0 pg (28.0-36.0) 10/10/18 13:08 RDW 14.6 % (11.5-20.0) 10/10/18 13:08 Plt Count 273 Th/cmm (150-400) 10/10/18 13:08 MPV 6.4 fl 10/10/18 13:08 Neutrophils % 71.8 % (40.0-80.0) 10/10/18 13:08 Lymphocytes % 18.6 % (20.0-50.0) L 10/10/18 13:08 Monocytes % 7.6 % (2.0-10.0) 10/10/18 13:08 Eosinophils % 1.3 % (0.0-5.0) 10/10/18 13:08 Basophils % 0.7 % (0.0-2.0) 10/10/18 13:08 Sodium 137 mEq/L (136-145) 10/10/18 13:08 Potassium 3.9 mEq/L (3.5-5.1) 10/10/18 13:08 Chloride 104 mEq/L (98-107) 10/10/18 13:08 Carbon Dioxide 24.9 mEq/L (21.0-31.0) 10/10/18 13:08 Anion Gap 12.0 (7.0-16.0) 10/10/18 13:08 BUN 16 mg/dL (7-25) 10/10/18 13:08 Creatinine 1.0 mg/dL (0.6-1.2) 10/10/18 13:08 Est GFR ( Amer) > 60.0 ml/min (>90) 10/10/18 13:08 Est GFR (Non-Af Amer) 58.8 ml/min 10/10/18 13:08 BUN/Creatinine Ratio 16.0 10/10/18 13:08 Glucose 270 mg/dL (70-105) H 10/10/18 13:08 POC Glucose 110 MG/DL (70 - 105) H 10/25/18 06:29 Calcium 9.0 mg/dL (8.6-10.3) 10/10/18 13:08 Total Bilirubin 0.3 mg/dL (0.3-1.0) 10/10/18 13:08 AST 19 U/L (13-39) 10/10/18 13:08 ALT 17 U/L (7-52) 10/10/18 13:08 Alkaline Phosphatase 87 U/L (34-104) 10/10/18 13:08 Total Protein 6.3 gm/dL (6.0-8.3) 10/10/18 13:08 Albumin 3.7 gm/dL (3.7-5.3) 10/10/18 13:08 Globulin 2.6 gm/dL 10/10/18 13:08 Albumin/Globulin Ratio 1.4 (1.0-1.8) 10/10/18 13:08 Urine Source CLEAN C 10/10/18 13:34 Urine Color YELLOW 10/10/18 13:34 Urine Clarity CLEAR (CLEAR) 10/10/18 13:34 Urine pH 5.5 (4.6 - 8.0) 10/10/18 13:34 Ur Specific [place] 1.025 (1.005-1.030) 10/10/18 13:34 Urine Protein NEGATIVE mg/dL (NEGATIVE) 10/10/18 13:34 Urine Glucose (UA) NEGATIVE mg/dL (NEGATIVE) 10/10/18 13:34 Urine Ketones NEGATIVE mg/dL (NEGATIVE) 10/10/18 13:34 Urine Blood NEGATIVE (NEGATIVE) 10/10/18 13:34 Urine Nitrate NEGATIVE (NEGATIVE) 10/10/18 13:34 Urine Bilirubin NEGATIVE (NEGATIVE) 10/10/18 13:34 Urine Urobilinogen 0.2 E.U./dL (0.2 - 1.0) 10/10/18 13:34 Ur Leukocyte Esterase NEGATIVE (NEGATIVE) 10/10/18 13:34 Urine RBC 0-2 /hpf (0-5) 10/10/18 13:34 Urine WBC 2-5 /hpf (0-5) 10/10/18 13:34 Ur Epithelial Cells MODERATE /lpf (FEW) 10/10/18 13:34 Urine Bacteria FEW /hpf (NONE SEEN) 10/10/18 13:34 - Physical Exam Vitals and I&O: Vital Signs Temp 0 F 10/25/18 06:08 Pulse 80 10/24/18 21:10 Resp 20 10/24/18 21:10 BP 118/63 10/24/18 21:10 Pulse Ox 94 10/24/18 21:10 Intake & Output 10/24/18 10/25/18 10/25/18 18:59 06:59 18:59 Intake Total 1440 120 Balance 1440 120 Intake: Oral 1080 120 Other 360 Other: # Voids 4 3 # Bowel Movements 0 0 Active Medications: Current Medications Acetaminophen (Tylenol) 650 mg PO Q4HR PRN PRN Reason: Mild Pain / Temp above 100 Stop: 12/09/18 19:59 Amiodarone HCl (Cordarone) 200 mg PO BID [facility] Stop: 12/10/18 08:59 Last Admin: 10/24/18 17:43 Dose: 200 mg Amlodipine Besylate (Norvasc) 10 mg PO DAILY [facility] Stop: 12/10/18 08:59 Last Admin: 10/24/18 09:01 Dose: 10 mg Ascorbic Acid (Vitamin C) 500 mg PO DAILY [facility] Stop: 12/10/18 08:59 Last Admin: 10/24/18 08:41 Dose: 500 mg Aspirin (Aspirin Chewable) 81 mg PO DAILY [facility] Stop: 12/10/18 08:59 Last Admin: 10/24/18 08:42 Dose: 81 mg Dextrose (D50w) 50 ml IVP PRN PRN PRN Reason: BS below 70&not tolerate po Stop: 12/10/18 10:24 Dextrose (Glutose 40%) 18.75 gm PO PRN PRN PRN Reason: BS below 70 & tolerate po Stop: 12/10/18 10:24 Digoxin (Lanoxin) 0.25 mg PO DAILY [facility] Stop: 12/10/18 08:59 Last Admin: 10/24/18 09:01 Dose: Not Given Docusate Sodium (Colace) 100 mg PO BID [facility] Stop: 12/10/18 08:59 Last Admin: 10/24/18 17:36 Dose: 100 mg Escitalopram Oxalate (Lexapro) 20 mg PO DAILY [facility]; Protocol Stop: 12/10/18 08:59 Last Admin: 10/24/18 08:42 Dose: 20 mg Glucagon (Glucagen) 1 mg IM PRN PRN PRN Reason: BS below 70&dextrose ineffecti Stop: 12/10/18 10:24 Insulin Human Lispro (Humalog Insulin Sliding Scale) 0 units SUBQ ACHS [facility]; Protocol Stop: 12/10/18 11:29 Last Admin: 10/25/18 06:58 Dose: Not Given Lorazepam (Ativan) 0.5 mg PO Q4H PRN; Protocol PRN Reason: Anxiety Stop: 12/09/18 19:59 Metformin HCl (Glucophage) 500 mg PO BIDWM [facility] Stop: 12/10/18 07:59 Last Admin: 10/24/18 17:36 Dose: 500 mg Oxybutynin Chloride (Ditropan) 5 mg PO DAILY [facility] Stop: 12/10/18 08:59 Last Admin: 10/24/18 08:41 Dose: 5 mg Oxycodone/Acetaminophen (Percocet 5/325mg Oral Tab) 1 tab PO Q4H PRN PRN Reason: Pain (Severe) Stop: 12/17/18 08:09 Last Admin: 10/25/18 01:50 Dose: 1 tab Pantoprazole Sodium (Protonix) 40 mg PO DAILY [facility] Stop: 12/22/18 08:59 Last Admin: 10/24/18 08:43 Dose: Not Given Quetiapine Fumarate 100 mg/ (Quetiapine Fumarate 50 mg) 150 mg PO HS [facility] Stop: 12/20/18 20:59 Last Admin: 10/24/18 22:02 Dose: 150 mg Rivaroxaban (Xarelto) 20 mg PO DAILY [facility] Stop: 12/10/18 08:59 Last Admin: 10/24/18 08:41 Dose: 20 mg Senna (Senna) 8.6 mg PO DAILY [facility] Stop: 12/10/18 08:59 Last Admin: 10/24/18 08:42 Dose: 8.6 mg Sitagliptin Phosphate (Januvia) 100 mg PO QDAC [facility] Stop: 12/10/18 07:29 Last Admin: 10/25/18 06:58 Dose: 100 mg Zolpidem Tartrate (Ambien) 5 mg PO HS PRN PRN Reason: Insomnia Stop: 12/09/18 18:50 Last Admin: 10/23/18 21:52 Dose: 5 mg Physical Exam: 68 y/o patient is gravely disabled and continues to refuse local skin care as well as medical care. Patient has poor insight,unpredictable and is still very depressed. Patient will continue to be treated and monitored. General: lethargic, alert, obese HEENT: NC/AT, PERRLA Neck: Supple, No JVD Lungs: CTAB, other (no acute respiratory distress) Cardiovascular: RRR Abdomen: soft, non-tender Extremities: other (back sores.) Neurological: no change, bedbound Internal Medicine Assmt/Plan - Assessment Assessment: Refusing Care 5150 Hold. Diabetes. Afib. Bipolar disorder. Depressed mood. Anxiety. Copd. Hypertension. Osteoarthritis. Pressure sores. - Plan Plan: Continuation of care. Psych followup/management. Monitor Labs. Continue present meds as directed. Monitor Diet/Nutritional support. Local skin care and wound care. Pain Management. Physical therapy. Occupational therapy. Safety precaution. Supportive care. Fall precaution, frequent nursing rounds, and as needed restraints to prevent fall. Continue collaborating with consulting specialists, case management and nursing team. Will Monitor patient and continue present care management. Nutritional Asmnt/Malnutr-PDOC - Dietary Evaluation Malnutrition Findings (Please click <Entered> for more info): Nutritional Asmnt/Malnutrition Start: 10/11/18 14: 22 Text: Status: Complete Freq: Protocol: Document 10/11/18 14:22 JENNIFERG (Rec: 10/11/18 14:31 DILAN [email or web address]) Nutritional Asmnt/Malnutrition Patient General Information Nutritional Screening High Risk Diagnosis psychosis Pertinent Medical Hx/Surgical Hx HTN, DM, asthma/COPD, arthritis, afib, knee and rt shoulder surger, csection Subjective Information Pt seen eating lunch in bed at time of visit. Food preference provided to RD. Pt asked for real sugar. Explained to pt that she is on [facility] diet and the benifits for diabetes. Pt stated her blood sugar is fine. Glucose 270 at admission noted. Pt appeared not interested in diabetic education. Per EMR, pt consumed 50% of breakfast today. Current Diet Order/ Nutrition Support [facility] Pertinent Medications vit C, colace, glucophage, protonix, senna, januvia Pertinent Labs 10/10 glucose 270 Nutritional Hx/Data Height 1.68 m Height (Calculated Centimeters) 167.6 Current Weight (lbs) 113.398 kg Weight (Calculated Kilograms) 113.4 Weight (Calculated Grams) 646389.1 [place] Body Weight 130 Body Mass Index (BMI) 40.3 Weight Status Morbidly Obese GI Symptoms GI Symptoms None Last BM none Difficult in: None Skin Integrity/Comment: RT. knee surgery scar,redness to coccyx area mitul 15 Estimated Nutritional Goals BEE in Kcals: Adj wt of IBW Calories/Kcals/Kg 25-30 Kcals Calculated 0032-5321 Protein: Adj wt of IBW Protein g/k Protein Calculated 73 Fluid: ml 1825-2190ml (1ml/kcal) Nutritional Problem 1. Problem Problem altered nutrition related labs Etiology hyperglycemia Signs/Symptoms: gluocse 270 at admission Malnutrition Alert Is there a minimum of two criteria No selected? Query Text:Check all the applicable criteria. A minimum of two criteria are recommended for diagnosis of either severe or non-severe malnutrition. Malnutrition Related to Morbid Obesity Malnutrition related to morbid obesity No Intervention/Recommendation Comments 1. Continue with [facility] diet as ordered. Diet preference updated. 2. Monitor PO intake, wt, labs and skin integrity 3. F/U as low risk in 7 days Expected Outcomes/Goals Expected Outcomes/Goals 1. PO intake to meet at least 75% of nutritional needs. 2. Wt stability, skin to remain intact, labs to approach WNL.
--- NOTE | 2018-10-25 09:58 | Progress Notes ---
DATE: 10/24/2018 SUBJECTIVE: Chart reviewed and patient interviewed. Also discussed the patient's condition with the staff and reviewed records and labs. The patient is still severely depressed and withdrawn and is still feeling hopeless, especially with the length of stay and no place yet available to interview her to take her through a [facility]. The patient also is still at times resisting care and giving staff some difficult time. On the other hand slightly easier to redirect. ASSESSMENT: The patient is depressed and still resisting care. TREATMENT PLAN: Continue to monitor behavior and condition closely. Also, continue adjusting psychotropic medications and work on placement issue. JOB# [id number]
--- NOTE | 2018-10-25 22:54 | Progress Notes ---
DATE: SUBJECTIVE: Chart was reviewed and the patient interviewed. Also discussed the patient's condition with the staff and reviewed records and labs. The patient is still in a depressed mood and still has sad affects. The patient also is still resisting care at times. On the other hand, the patient is compliant with taking medications with no side effects of medications. ASSESSMENT: The patient is still depressed. TREATMENT PLAN: Continue monitoring her behavior and her condition. Also, continue working on placement issue and returned case inspector is still trying to find placement for the patient. At the same time, continue working on her rehabilitation and also adjusting medications. JOB# [id number]
[2018-10-26] MEDS: INSULIN LISPRO SLIDING SCALE 100 UNITS/ML UNIT SUBQ SCH ×4 (07:30→20:57)
[2018-10-26] MEDS: Aspirin 81mg Chewable Tab PO SCH (08:25)
[2018-10-26] MEDS: APAP/Oxycodone 5/325mg Tab PO PRN ×4 (08:25→20:56)
[2018-10-26] MEDS: Pantoprazole 40 mg EC Tab PO SCH (08:25)
[2018-10-26] MEDS: Multivitamin w/ Minerals Tab PO SCH (08:26)
--- NOTE | 2018-10-27 02:14 | Progress Notes ---
DATE: 10/26/[address] Solomon. Case was discussed with staff of the patient and reviewed records. This is a well-known case to me as I have seen her before many times, I am covering for Dr. Solomon. The patient continues to stay to herself in her room. She is compliant with the medication. She continues to be depressed and overwhelmed. Staff is working on placement. She is compliant with the medication with no side effects, no sedation, no nausea, and no extrapyramidal symptoms. The patient has a history of being aggressive at times. I will continue to work with the patient in group therapy, milieu therapy, and adjust the medication as needed. JOB# [id number]
[2018-10-27] MEDS: APAP/Oxycodone 5/325mg Tab PO PRN ×4 (06:21→19:55)
[2018-10-27] MEDS: INSULIN LISPRO SLIDING SCALE 100 UNITS/ML UNIT SUBQ SCH ×4 (06:31→20:42)
[2018-10-27] MEDS: Pantoprazole 40 mg EC Tab PO SCH (08:18)
[2018-10-27] MEDS: Multivitamin w/ Minerals Tab PO SCH (08:18)
[2018-10-27] MEDS: Aspirin 81mg Chewable Tab PO SCH (08:19)
--- NOTE | 2018-10-27 12:57 | Internal Medicine Prog Note ---
Internal Medicine Subjective - Subjective Service Date: 10/27/18 Patient seen and examined:: with staff Patient is:: awake, verbal, talking, agitated, other (poor insight, continues to refuse care.) Patient Complaints of:: other (still in very depressed mood.) Per staff patient has:: no adverse event, no episodes of fall, noncompliant, refusing care Internal Medicine Objective - Results Result Diagrams: 10/10/18 13:08 10/10/18 13:08 Recent Labs: Laboratory Last Values WBC 7.0 Th/cmm (4.8-10.8) 10/10/18 13:08 RBC 4.00 Mil/cmm (3.80-5.20) 10/10/18 13:08 Hgb 9.9 gm/dL (12-16) L 10/10/18 13:08 Hct 29.9 % (41.0-60) L 10/10/18 13:08 MCV 74.6 fl (81-100) L 10/10/18 13:08 MCH 24.6 pg (27.0-31.0) L 10/10/18 13:08 MCHC Differential 33.0 pg (28.0-36.0) 10/10/18 13:08 RDW 14.6 % (11.5-20.0) 10/10/18 13:08 Plt Count 273 Th/cmm (150-400) 10/10/18 13:08 MPV 6.4 fl 10/10/18 13:08 Neutrophils % 71.8 % (40.0-80.0) 10/10/18 13:08 Lymphocytes % 18.6 % (20.0-50.0) L 10/10/18 13:08 Monocytes % 7.6 % (2.0-10.0) 10/10/18 13:08 Eosinophils % 1.3 % (0.0-5.0) 10/10/18 13:08 Basophils % 0.7 % (0.0-2.0) 10/10/18 13:08 Sodium 137 mEq/L (136-145) 10/10/18 13:08 Potassium 3.9 mEq/L (3.5-5.1) 10/10/18 13:08 Chloride 104 mEq/L (98-107) 10/10/18 13:08 Carbon Dioxide 24.9 mEq/L (21.0-31.0) 10/10/18 13:08 Anion Gap 12.0 (7.0-16.0) 10/10/18 13:08 BUN 16 mg/dL (7-25) 10/10/18 13:08 Creatinine 1.0 mg/dL (0.6-1.2) 10/10/18 13:08 Est GFR ( Amer) > 60.0 ml/min (>90) 10/10/18 13:08 Est GFR (Non-Af Amer) 58.8 ml/min 10/10/18 13:08 BUN/Creatinine Ratio 16.0 10/10/18 13:08 Glucose 270 mg/dL (70-105) H 10/10/18 13:08 POC Glucose 104 MG/DL (70 - 105) 10/27/18 11:36 Calcium 9.0 mg/dL (8.6-10.3) 10/10/18 13:08 Total Bilirubin 0.3 mg/dL (0.3-1.0) 10/10/18 13:08 AST 19 U/L (13-39) 10/10/18 13:08 ALT 17 U/L (7-52) 10/10/18 13:08 Alkaline Phosphatase 87 U/L (34-104) 10/10/18 13:08 Total Protein 6.3 gm/dL (6.0-8.3) 10/10/18 13:08 Albumin 3.7 gm/dL (3.7-5.3) 10/10/18 13:08 Globulin 2.6 gm/dL 10/10/18 13:08 Albumin/Globulin Ratio 1.4 (1.0-1.8) 10/10/18 13:08 Urine Source CLEAN C 10/10/18 13:34 Urine Color YELLOW 10/10/18 13:34 Urine Clarity CLEAR (CLEAR) 10/10/18 13:34 Urine pH 5.5 (4.6 - 8.0) 10/10/18 13:34 Ur Specific [place] 1.025 (1.005-1.030) 10/10/18 13:34 Urine Protein NEGATIVE mg/dL (NEGATIVE) 10/10/18 13:34 Urine Glucose (UA) NEGATIVE mg/dL (NEGATIVE) 10/10/18 13:34 Urine Ketones NEGATIVE mg/dL (NEGATIVE) 10/10/18 13:34 Urine Blood NEGATIVE (NEGATIVE) 10/10/18 13:34 Urine Nitrate NEGATIVE (NEGATIVE) 10/10/18 13:34 Urine Bilirubin NEGATIVE (NEGATIVE) 10/10/18 13:34 Urine Urobilinogen 0.2 E.U./dL (0.2 - 1.0) 10/10/18 13:34 Ur Leukocyte Esterase NEGATIVE (NEGATIVE) 10/10/18 13:34 Urine RBC 0-2 /hpf (0-5) 10/10/18 13:34 Urine WBC 2-5 /hpf (0-5) 10/10/18 13:34 Ur Epithelial Cells MODERATE /lpf (FEW) 10/10/18 13:34 Urine Bacteria FEW /hpf (NONE SEEN) 10/10/18 13:34 - Physical Exam Vitals and I&O: Vital Signs Temp 97.6 F 10/27/18 05:49 Pulse 65 10/27/18 08:20 Resp 18 10/27/18 05:49 BP 129/76 10/27/18 08:20 Pulse Ox 93 10/27/18 05:49 Intake & Output 10/26/18 10/27/18 10/27/18 18:59 06:59 18:59 Intake Total 360 Balance 360 Intake: Oral 360 Other: # Voids 4 2 # Bowel Movements 0 0 Active Medications: Current Medications Acetaminophen (Tylenol) 650 mg PO Q4HR PRN PRN Reason: Mild Pain / Temp above 100 Stop: 12/09/18 19:59 Amiodarone HCl (Cordarone) 200 mg PO BID [facility] Stop: 12/10/18 08:59 Last Admin: 10/27/18 08:19 Dose: 200 mg Amlodipine Besylate (Norvasc) 10 mg PO DAILY [facility] Stop: 12/10/18 08:59 Last Admin: 10/27/18 08:20 Dose: 10 mg Ascorbic Acid (Vitamin C) 500 mg PO DAILY [facility] Stop: 12/10/18 08:59 Last Admin: 10/27/18 08:19 Dose: 500 mg Aspirin (Aspirin Chewable) 81 mg PO DAILY [facility] Stop: 12/10/18 08:59 Last Admin: 10/27/18 08:19 Dose: 81 mg Dextrose (D50w) 50 ml IVP PRN PRN PRN Reason: BS below 70&not tolerate po Stop: 12/10/18 10:24 Dextrose (Glutose 40%) 18.75 gm PO PRN PRN PRN Reason: BS below 70 & tolerate po Stop: 12/10/18 10:24 Digoxin (Lanoxin) 0.25 mg PO DAILY [facility] Stop: 12/10/18 08:59 Last Admin: 10/27/18 08:20 Dose: 0.25 mg Docusate Sodium (Colace) 100 mg PO BID [facility] Stop: 12/10/18 08:59 Last Admin: 10/27/18 08:19 Dose: 100 mg Escitalopram Oxalate (Lexapro) 20 mg PO DAILY [facility]; Protocol Stop: 12/10/18 08:59 Last Admin: 10/27/18 08:19 Dose: 20 mg Glucagon (Glucagen) 1 mg IM PRN PRN PRN Reason: BS below 70&dextrose ineffecti Stop: 12/10/18 10:24 Insulin Human Lispro (Humalog Insulin Sliding Scale) 0 units SUBQ ACHS [facility]; Protocol Stop: 12/10/18 11:29 Last Admin: 10/27/18 11:39 Dose: Not Given Lorazepam (Ativan) 0.5 mg PO Q4H PRN; Protocol PRN Reason: Anxiety Stop: 12/09/18 19:59 Metformin HCl (Glucophage) 500 mg PO BIDWM [facility] Stop: 12/10/18 07:59 Last Admin: 10/27/18 08:18 Dose: 500 mg Oxybutynin Chloride (Ditropan) 5 mg PO DAILY [facility] Stop: 12/10/18 08:59 Last Admin: 10/27/18 08:18 Dose: 5 mg Oxycodone/Acetaminophen (Percocet 5/325mg Oral Tab) 1 tab PO Q4H PRN PRN Reason: Pain (Severe) Stop: 12/17/18 08:09 Last Admin: 10/27/18 10:16 Dose: 1 tab Pantoprazole Sodium (Protonix) 40 mg PO DAILY [facility] Stop: 12/22/18 08:59 Last Admin: 10/27/18 08:18 Dose: 40 mg Quetiapine Fumarate 100 mg/ (Quetiapine Fumarate 50 mg) 150 mg PO HS [facility] Stop: 12/20/18 20:59 Last Admin: 10/26/18 20:56 Dose: 150 mg Rivaroxaban (Xarelto) 20 mg PO DAILY [facility] Stop: 12/10/18 08:59 Last Admin: 10/27/18 08:18 Dose: 20 mg Senna (Senna) 8.6 mg PO DAILY [facility] Stop: 12/10/18 08:59 Last Admin: 10/27/18 08:18 Dose: 8.6 mg Sitagliptin Phosphate (Januvia) 100 mg PO QDAC [facility] Stop: 12/10/18 07:29 Last Admin: 10/27/18 06:30 Dose: 100 mg Zolpidem Tartrate (Ambien) 5 mg PO HS PRN PRN Reason: Insomnia Stop: 12/09/18 18:50 Last Admin: 10/26/18 21:55 Dose: 5 mg Physical Exam: 68 y/o patient is gravely disabled and continues to refuse local skin care as well as medical care. Patient has poor insight,unpredictable and is still very depressed and irritated. Patient will continue to be treated and monitored. General: lethargic, alert, obese HEENT: NC/AT, PERRLA Neck: Supple, No JVD Lungs: CTAB, other (no acute respiratory distress) Cardiovascular: RRR Abdomen: soft, non-tender Extremities: other (back sores.) Neurological: no change, bedbound Internal Medicine Assmt/Plan - Assessment Assessment: Refusing Care 5150 Hold. Diabetes. Afib. Bipolar disorder. Depressed mood. Irritated. Anxiety. Copd. Hypertension. Osteoarthritis. Pressure sores. - Plan Plan: Continuation of care. Psych followup/management. Monitor Labs. Continue present meds as directed. Monitor Diet/Nutritional support. Local skin care and wound care. Pain Management. Physical therapy. Occupational therapy. Safety precaution. Supportive care. Fall precaution, frequent nursing rounds, and as needed restraints to prevent fall. Continue collaborating with consulting specialists, case management and nursing team. Will Monitor patient and continue present care management. Nutritional Asmnt/Malnutr-PDOC - Dietary Evaluation Malnutrition Findings (Please click <Entered> for more info): Nutritional Asmnt/Malnutrition Start: 10/11/18 14: 22 Text: Status: Complete Freq: Protocol: Document 10/11/18 14:22 DILAN (Rec: 10/11/18 14:31 DILAN [email or web address]) Nutritional Asmnt/Malnutrition Patient General Information Nutritional Screening High Risk Diagnosis psychosis Pertinent Medical Hx/Surgical Hx HTN, DM, asthma/COPD, arthritis, afib, knee and rt shoulder surger, csection Subjective Information Pt seen eating lunch in bed at time of visit. Food preference provided to RD. Pt asked for real sugar. Explained to pt that she is on [facility] diet and the benifits for diabetes. Pt stated her blood sugar is fine. Glucose 270 at admission noted. Pt appeared not interested in diabetic education. Per EMR, pt consumed 50% of breakfast today. Current Diet Order/ Nutrition Support [facility] Pertinent Medications vit C, colace, glucophage, protonix, senna, januvia Pertinent Labs 10/10 glucose 270 Nutritional Hx/Data Height 1.68 m Height (Calculated Centimeters) 167.6 Current Weight (lbs) 113.398 kg Weight (Calculated Kilograms) 113.4 Weight (Calculated Grams) 708501.1 [place] Body Weight 130 Body Mass Index (BMI) 40.3 Weight Status Morbidly Obese GI Symptoms GI Symptoms None Last BM none Difficult in: None Skin Integrity/Comment: RT. knee surgery scar,redness to coccyx area mitul 15 Estimated Nutritional Goals BEE in Kcals: Adj wt of IBW Calories/Kcals/Kg 25-30 Kcals Calculated [id number] Protein: Adj wt of IBW Protein g/k Protein Calculated 73 Fluid: ml 1825-2190ml (1ml/kcal) Nutritional Problem 1. Problem Problem altered nutrition related labs Etiology hyperglycemia Signs/Symptoms: gluocse 270 at admission Malnutrition Alert Is there a minimum of two criteria No selected? Query Text:Check all the applicable criteria. A minimum of two criteria are recommended for diagnosis of either severe or non-severe malnutrition. Malnutrition Related to Morbid Obesity Malnutrition related to morbid obesity No Intervention/Recommendation Comments 1. Continue with [facility] diet as ordered. Diet preference updated. 2. Monitor PO intake, wt, labs and skin integrity 3. F/U as low risk in 7 days Expected Outcomes/Goals Expected Outcomes/Goals 1. PO intake to meet at least 75% of nutritional needs. 2. Wt stability, skin to remain intact, labs to approach WNL.
[2018-10-28] MEDS: APAP/Oxycodone 5/325mg Tab PO PRN ×4 (06:41→19:03)
[2018-10-28] MEDS: INSULIN LISPRO SLIDING SCALE 100 UNITS/ML UNIT SUBQ SCH ×4 (06:44→20:52)
[2018-10-28] MEDS: Pantoprazole 40 mg EC Tab PO SCH (09:00)
[2018-10-28] MEDS: Aspirin 81mg Chewable Tab PO SCH (09:50)
[2018-10-28] MEDS: Multivitamin w/ Minerals Tab PO SCH (09:51)
--- NOTE | 2018-10-28 11:51 | Progress Notes ---
DATE: SUBJECTIVE: Chart was reviewed and the patient interviewed. Also discussed the patient's condition with the staff and reviewed records and labs. The patient is still in a depressed mood, and she is still suspicious and paranoid. The patient also is guarded. Also, the patient is withdrawn and is spending most of the time in her room. The patient also is still anxious and is still wandering about placement issue. Otherwise, the patient is compliant with taking her medications with no side effects of medications. ASSESSMENT: The patient is still depressed. TREATMENT PLAN: Continue monitoring her behavior and her condition closely. Also, continue to work on her ineffective coping and placement issue. Discussed with director of casework servicesaccount support manager issue and is still trying to get placement for the patient. JOB# [id number]
--- NOTE | 2018-10-28 17:49 | Internal Medicine Prog Note ---
Internal Medicine Subjective - Subjective Service Date: 10/28/18 Patient is:: awake, verbal, talking, agitated, other (poor insight, continues to refuse care.) Patient Complaints of:: other (still in very depressed mood.) Per staff patient has:: no adverse event, no episodes of fall, noncompliant, refusing care Internal Medicine Objective - Results Result Diagrams: 10/10/18 13:08 10/10/18 13:08 Recent Labs: Laboratory Last Values WBC 7.0 Th/cmm (4.8-10.8) 10/10/18 13:08 RBC 4.00 Mil/cmm (3.80-5.20) 10/10/18 13:08 Hgb 9.9 gm/dL (12-16) L 10/10/18 13:08 Hct 29.9 % (41.0-60) L 10/10/18 13:08 MCV 74.6 fl (81-100) L 10/10/18 13:08 MCH 24.6 pg (27.0-31.0) L 10/10/18 13:08 MCHC Differential 33.0 pg (28.0-36.0) 10/10/18 13:08 RDW 14.6 % (11.5-20.0) 10/10/18 13:08 Plt Count 273 Th/cmm (150-400) 10/10/18 13:08 MPV 6.4 fl 10/10/18 13:08 Neutrophils % 71.8 % (40.0-80.0) 10/10/18 13:08 Lymphocytes % 18.6 % (20.0-50.0) L 10/10/18 13:08 Monocytes % 7.6 % (2.0-10.0) 10/10/18 13:08 Eosinophils % 1.3 % (0.0-5.0) 10/10/18 13:08 Basophils % 0.7 % (0.0-2.0) 10/10/18 13:08 Sodium 137 mEq/L (136-145) 10/10/18 13:08 Potassium 3.9 mEq/L (3.5-5.1) 10/10/18 13:08 Chloride 104 mEq/L (98-107) 10/10/18 13:08 Carbon Dioxide 24.9 mEq/L (21.0-31.0) 10/10/18 13:08 Anion Gap 12.0 (7.0-16.0) 10/10/18 13:08 BUN 16 mg/dL (7-25) 10/10/18 13:08 Creatinine 1.0 mg/dL (0.6-1.2) 10/10/18 13:08 Est GFR ( Amer) > 60.0 ml/min (>90) 10/10/18 13:08 Est GFR (Non-Af Amer) 58.8 ml/min 10/10/18 13:08 BUN/Creatinine Ratio 16.0 10/10/18 13:08 Glucose 270 mg/dL (70-105) H 10/10/18 13:08 POC Glucose 116 MG/DL (70 - 105) H 10/28/18 06:34 Calcium 9.0 mg/dL (8.6-10.3) 10/10/18 13:08 Total Bilirubin 0.3 mg/dL (0.3-1.0) 10/10/18 13:08 AST 19 U/L (13-39) 10/10/18 13:08 ALT 17 U/L (7-52) 10/10/18 13:08 Alkaline Phosphatase 87 U/L (34-104) 10/10/18 13:08 Total Protein 6.3 gm/dL (6.0-8.3) 10/10/18 13:08 Albumin 3.7 gm/dL (3.7-5.3) 10/10/18 13:08 Globulin 2.6 gm/dL 10/10/18 13:08 Albumin/Globulin Ratio 1.4 (1.0-1.8) 10/10/18 13:08 Urine Source CLEAN C 10/10/18 13:34 Urine Color YELLOW 10/10/18 13:34 Urine Clarity CLEAR (CLEAR) 10/10/18 13:34 Urine pH 5.5 (4.6 - 8.0) 10/10/18 13:34 Ur Specific [place] 1.025 (1.005-1.030) 10/10/18 13:34 Urine Protein NEGATIVE mg/dL (NEGATIVE) 10/10/18 13:34 Urine Glucose (UA) NEGATIVE mg/dL (NEGATIVE) 10/10/18 13:34 Urine Ketones NEGATIVE mg/dL (NEGATIVE) 10/10/18 13:34 Urine Blood NEGATIVE (NEGATIVE) 10/10/18 13:34 Urine Nitrate NEGATIVE (NEGATIVE) 10/10/18 13:34 Urine Bilirubin NEGATIVE (NEGATIVE) 10/10/18 13:34 Urine Urobilinogen 0.2 E.U./dL (0.2 - 1.0) 10/10/18 13:34 Ur Leukocyte Esterase NEGATIVE (NEGATIVE) 10/10/18 13:34 Urine RBC 0-2 /hpf (0-5) 10/10/18 13:34 Urine WBC 2-5 /hpf (0-5) 10/10/18 13:34 Ur Epithelial Cells MODERATE /lpf (FEW) 10/10/18 13:34 Urine Bacteria FEW /hpf (NONE SEEN) 10/10/18 13:34 - Physical Exam Vitals and I&O: Vital Signs Temp 97.7 F 10/28/18 14:00 Pulse 65 10/28/18 16:48 Resp 20 10/28/18 14:00 BP 125/64 10/28/18 14:00 Pulse Ox 97 10/28/18 14:00 Intake & Output 10/27/18 10/28/18 10/28/18 18:59 06:59 18:59 Intake Total 1500 Balance 1500 Intake: Oral 1500 Other: # Voids 4 # Bowel Movements 1 Active Medications: Current Medications Acetaminophen (Tylenol) 650 mg PO Q4HR PRN PRN Reason: Mild Pain / Temp above 100 Stop: 12/09/18 19:59 Amiodarone HCl (Cordarone) 200 mg PO BID [facility] Stop: 12/10/18 08:59 Last Admin: 10/28/18 16:48 Dose: 200 mg Amlodipine Besylate (Norvasc) 10 mg PO DAILY [facility] Stop: 12/10/18 08:59 Last Admin: 10/28/18 09:00 Dose: Not Given Ascorbic Acid (Vitamin C) 500 mg PO DAILY [facility] Stop: 12/10/18 08:59 Last Admin: 10/28/18 09:53 Dose: 500 mg Aspirin (Aspirin Chewable) 81 mg PO DAILY [facility] Stop: 12/10/18 08:59 Last Admin: 10/28/18 09:50 Dose: 81 mg Dextrose (D50w) 50 ml IVP PRN PRN PRN Reason: BS below 70&not tolerate po Stop: 12/10/18 10:24 Dextrose (Glutose 40%) 18.75 gm PO PRN PRN PRN Reason: BS below 70 & tolerate po Stop: 12/10/18 10:24 Digoxin (Lanoxin) 0.25 mg PO DAILY [facility] Stop: 12/10/18 08:59 Last Admin: 10/28/18 09:00 Dose: Not Given Docusate Sodium (Colace) 100 mg PO BID [facility] Stop: 12/10/18 08:59 Last Admin: 10/28/18 16:48 Dose: 100 mg Escitalopram Oxalate (Lexapro) 20 mg PO DAILY [facility]; Protocol Stop: 12/10/18 08:59 Last Admin: 10/28/18 09:51 Dose: 20 mg Glucagon (Glucagen) 1 mg IM PRN PRN PRN Reason: BS below 70&dextrose ineffecti Stop: 12/10/18 10:24 Insulin Human Lispro (Humalog Insulin Sliding Scale) 0 units SUBQ ACHS [facility]; Protocol Stop: 12/10/18 11:29 Last Admin: 10/28/18 17:13 Dose: Not Given Lorazepam (Ativan) 0.5 mg PO Q4H PRN; Protocol PRN Reason: Anxiety Stop: 12/09/18 19:59 Metformin HCl (Glucophage) 500 mg PO BIDWM [facility] Stop: 12/10/18 07:59 Last Admin: 10/28/18 17:12 Dose: 500 mg Oxybutynin Chloride (Ditropan) 5 mg PO DAILY [facility] Stop: 12/10/18 08:59 Last Admin: 10/28/18 09:54 Dose: 5 mg Oxycodone/Acetaminophen (Percocet 5/325mg Oral Tab) 1 tab PO Q4H PRN PRN Reason: Pain (Severe) Stop: 12/17/18 08:09 Last Admin: 10/28/18 14:37 Dose: 1 tab Pantoprazole Sodium (Protonix) 40 mg PO DAILY [facility] Stop: 12/22/18 08:59 Last Admin: 10/28/18 09:00 Dose: Not Given Quetiapine Fumarate 100 mg/ (Quetiapine Fumarate 50 mg) 150 mg PO HS [facility] Stop: 12/20/18 20:59 Last Admin: 10/27/18 20:36 Dose: 150 mg Rivaroxaban (Xarelto) 20 mg PO DAILY [facility] Stop: 12/10/18 08:59 Last Admin: 10/28/18 09:50 Dose: 20 mg Senna (Senna) 8.6 mg PO DAILY [facility] Stop: 12/10/18 08:59 Last Admin: 10/28/18 09:00 Dose: Not Given Sitagliptin Phosphate (Januvia) 100 mg PO QDAC [facility] Stop: 12/10/18 07:29 Last Admin: 10/28/18 06:45 Dose: 100 mg Zolpidem Tartrate (Ambien) 5 mg PO HS PRN PRN Reason: Insomnia Stop: 12/09/18 18:50 Last Admin: 10/27/18 20:36 Dose: 5 mg General: lethargic, alert, obese HEENT: NC/AT, PERRLA Neck: Supple, No JVD Lungs: CTAB, other (no acute respiratory distress) Cardiovascular: RRR Abdomen: soft, non-tender Extremities: other (back sores.) Neurological: no change, bedbound Internal Medicine Assmt/Plan - Assessment Assessment: Refusing Care 5150 Hold. Diabetes. Afib. Bipolar disorder. Depressed mood. Anxiety. Copd. Hypertension. Osteoarthritis. Pressure sores. - Plan Plan: fall precautions cpm Nutritional Asmnt/Malnutr-PDOC - Dietary Evaluation Malnutrition Findings (Please click <Entered> for more info): Nutritional Asmnt/Malnutrition Start: 10/11/18 14: 22 Text: Status: Complete Freq: Protocol: Document 10/11/18 14:22 LCHENG (Rec: 10/11/18 14:31 LCHAILEYG [email or web address]) Nutritional Asmnt/Malnutrition Patient General Information Nutritional Screening High Risk Diagnosis psychosis Pertinent Medical Hx/Surgical Hx HTN, DM, asthma/COPD, arthritis, afib, knee and rt shoulder surger, csection Subjective Information Pt seen eating lunch in bed at time of visit. Food preference provided to RD. Pt asked for real sugar. Explained to pt that she is on [facility] diet and the benifits for diabetes. Pt stated her blood sugar is fine. Glucose 270 at admission noted. Pt appeared not interested in diabetic education. Per EMR, pt consumed 50% of breakfast today. Current Diet Order/ Nutrition Support [facility] Pertinent Medications vit C, colace, glucophage, protonix, senna, januvia Pertinent Labs 10/10 glucose 270 Nutritional Hx/Data Height 5 ft 6 in Height (Calculated Centimeters) 167.6 Current Weight (lbs) 250 lb Weight (Calculated Kilograms) 113.4 Weight (Calculated Grams) 744156.1 [place] Body Weight 130 Body Mass Index (BMI) 40.3 Weight Status Morbidly Obese GI Symptoms GI Symptoms None Last BM none Difficult in: None Skin Integrity/Comment: RT. knee surgery scar,redness to coccyx area mitul 15 Estimated Nutritional Goals BEE in Kcals: Adj wt of IBW Calories/Kcals/Kg 25-30 Kcals Calculated 0931-5274 Protein: Adj wt of IBW Protein g/k Protein Calculated 73 Fluid: ml 1825-2190ml (1ml/kcal) Nutritional Problem 1. Problem Problem altered nutrition related labs Etiology hyperglycemia Signs/Symptoms: gluocse 270 at admission Malnutrition Alert Is there a minimum of two criteria No selected? Query Text:Check all the applicable criteria. A minimum of two criteria are recommended for diagnosis of either severe or non-severe malnutrition. Malnutrition Related to Morbid Obesity Malnutrition related to morbid obesity No Intervention/Recommendation Comments 1. Continue with [facility] diet as ordered. Diet preference updated. 2. Monitor PO intake, wt, labs and skin integrity 3. F/U as low risk in 7 days Expected Outcomes/Goals Expected Outcomes/Goals 1. PO intake to meet at least 75% of nutritional needs. 2. Wt stability, skin to remain intact, labs to approach WNL.
[2018-10-29] MEDS: APAP/Oxycodone 5/325mg Tab PO PRN ×4 (06:24→18:35)
[2018-10-29] MEDS: INSULIN LISPRO SLIDING SCALE 100 UNITS/ML UNIT SUBQ SCH ×4 (06:38→20:10)
[2018-10-29] MEDS: Multivitamin w/ Minerals Tab PO SCH (08:36)
[2018-10-29] MEDS: Pantoprazole 40 mg EC Tab PO SCH (08:36)
[2018-10-29] MEDS: Aspirin 81mg Chewable Tab PO SCH (08:39)
--- NOTE | 2018-10-29 11:15 | Internal Medicine Prog Note ---
Internal Medicine Subjective - Subjective Service Date: 10/29/18 Patient seen and examined:: with staff Patient is:: awake, verbal, talking, agitated, other (poor insight, still refusing care.) Patient Complaints of:: other (very depressed mood and agitated.) Per staff patient has:: no adverse event, no episodes of fall, noncompliant, refusing care Internal Medicine Objective - Results Result Diagrams: 10/10/18 13:08 10/10/18 13:08 Recent Labs: Laboratory Last Values WBC 7.0 Th/cmm (4.8-10.8) 10/10/18 13:08 RBC 4.00 Mil/cmm (3.80-5.20) 10/10/18 13:08 Hgb 9.9 gm/dL (12-16) L 10/10/18 13:08 Hct 29.9 % (41.0-60) L 10/10/18 13:08 MCV 74.6 fl (81-100) L 10/10/18 13:08 MCH 24.6 pg (27.0-31.0) L 10/10/18 13:08 MCHC Differential 33.0 pg (28.0-36.0) 10/10/18 13:08 RDW 14.6 % (11.5-20.0) 10/10/18 13:08 Plt Count 273 Th/cmm (150-400) 10/10/18 13:08 MPV 6.4 fl 10/10/18 13:08 Neutrophils % 71.8 % (40.0-80.0) 10/10/18 13:08 Lymphocytes % 18.6 % (20.0-50.0) L 10/10/18 13:08 Monocytes % 7.6 % (2.0-10.0) 10/10/18 13:08 Eosinophils % 1.3 % (0.0-5.0) 10/10/18 13:08 Basophils % 0.7 % (0.0-2.0) 10/10/18 13:08 Sodium 137 mEq/L (136-145) 10/10/18 13:08 Potassium 3.9 mEq/L (3.5-5.1) 10/10/18 13:08 Chloride 104 mEq/L (98-107) 10/10/18 13:08 Carbon Dioxide 24.9 mEq/L (21.0-31.0) 10/10/18 13:08 Anion Gap 12.0 (7.0-16.0) 10/10/18 13:08 BUN 16 mg/dL (7-25) 10/10/18 13:08 Creatinine 1.0 mg/dL (0.6-1.2) 10/10/18 13:08 Est GFR ( Amer) > 60.0 ml/min (>90) 10/10/18 13:08 Est GFR (Non-Af Amer) 58.8 ml/min 10/10/18 13:08 BUN/Creatinine Ratio 16.0 10/10/18 13:08 Glucose 270 mg/dL (70-105) H 10/10/18 13:08 POC Glucose 108 MG/DL (70 - 105) H 10/29/18 06:34 Calcium 9.0 mg/dL (8.6-10.3) 10/10/18 13:08 Total Bilirubin 0.3 mg/dL (0.3-1.0) 10/10/18 13:08 AST 19 U/L (13-39) 10/10/18 13:08 ALT 17 U/L (7-52) 10/10/18 13:08 Alkaline Phosphatase 87 U/L (34-104) 10/10/18 13:08 Total Protein 6.3 gm/dL (6.0-8.3) 10/10/18 13:08 Albumin 3.7 gm/dL (3.7-5.3) 10/10/18 13:08 Globulin 2.6 gm/dL 10/10/18 13:08 Albumin/Globulin Ratio 1.4 (1.0-1.8) 10/10/18 13:08 Urine Source CLEAN C 10/10/18 13:34 Urine Color YELLOW 10/10/18 13:34 Urine Clarity CLEAR (CLEAR) 10/10/18 13:34 Urine pH 5.5 (4.6 - 8.0) 10/10/18 13:34 Ur Specific [place] 1.025 (1.005-1.030) 10/10/18 13:34 Urine Protein NEGATIVE mg/dL (NEGATIVE) 10/10/18 13:34 Urine Glucose (UA) NEGATIVE mg/dL (NEGATIVE) 10/10/18 13:34 Urine Ketones NEGATIVE mg/dL (NEGATIVE) 10/10/18 13:34 Urine Blood NEGATIVE (NEGATIVE) 10/10/18 13:34 Urine Nitrate NEGATIVE (NEGATIVE) 10/10/18 13:34 Urine Bilirubin NEGATIVE (NEGATIVE) 10/10/18 13:34 Urine Urobilinogen 0.2 E.U./dL (0.2 - 1.0) 10/10/18 13:34 Ur Leukocyte Esterase NEGATIVE (NEGATIVE) 10/10/18 13:34 Urine RBC 0-2 /hpf (0-5) 10/10/18 13:34 Urine WBC 2-5 /hpf (0-5) 10/10/18 13:34 Ur Epithelial Cells MODERATE /lpf (FEW) 10/10/18 13:34 Urine Bacteria FEW /hpf (NONE SEEN) 10/10/18 13:34 - Physical Exam Vitals and I&O: Vital Signs Temp 97.2 F 10/29/18 06:22 Pulse 59 10/29/18 08:38 Resp 20 10/29/18 08:00 BP 128/65 10/29/18 08:37 Pulse Ox 94 10/29/18 06:22 Intake & Output 10/28/18 10/29/18 10/29/18 18:59 06:59 18:59 Intake Total 1200 720 Balance 1200 720 Intake: Oral 1200 720 Other: # Voids 3 # Bowel Movements 1 0 Active Medications: Current Medications Acetaminophen (Tylenol) 650 mg PO Q4HR PRN PRN Reason: Mild Pain / Temp above 100 Stop: 12/09/18 19:59 Amiodarone HCl (Cordarone) 200 mg PO BID [facility] Stop: 12/10/18 08:59 Last Admin: 10/29/18 08:36 Dose: Not Given Amlodipine Besylate (Norvasc) 10 mg PO DAILY [facility] Stop: 12/10/18 08:59 Last Admin: 10/29/18 08:37 Dose: Not Given Ascorbic Acid (Vitamin C) 500 mg PO DAILY [facility] Stop: 12/10/18 08:59 Last Admin: 10/29/18 08:35 Dose: 500 mg Aspirin (Aspirin Chewable) 81 mg PO DAILY [facility] Stop: 12/10/18 08:59 Last Admin: 10/29/18 08:39 Dose: 81 mg Dextrose (D50w) 50 ml IVP PRN PRN PRN Reason: BS below 70&not tolerate po Stop: 12/10/18 10:24 Dextrose (Glutose 40%) 18.75 gm PO PRN PRN PRN Reason: BS below 70 & tolerate po Stop: 12/10/18 10:24 Digoxin (Lanoxin) 0.25 mg PO DAILY [facility] Stop: 12/10/18 08:59 Last Admin: 10/29/18 08:38 Dose: Not Given Docusate Sodium (Colace) 100 mg PO BID [facility] Stop: 12/10/18 08:59 Last Admin: 10/29/18 08:38 Dose: 100 mg Escitalopram Oxalate (Lexapro) 20 mg PO DAILY [facility]; Protocol Stop: 12/10/18 08:59 Last Admin: 10/29/18 08:36 Dose: 20 mg Glucagon (Glucagen) 1 mg IM PRN PRN PRN Reason: BS below 70&dextrose ineffecti Stop: 12/10/18 10:24 Insulin Human Lispro (Humalog Insulin Sliding Scale) 0 units SUBQ ACHS [facility]; Protocol Stop: 12/10/18 11:29 Last Admin: 10/29/18 06:38 Dose: Not Given Lorazepam (Ativan) 0.5 mg PO Q4H PRN; Protocol PRN Reason: Anxiety Stop: 12/09/18 19:59 Metformin HCl (Glucophage) 500 mg PO BIDWM [facility] Stop: 12/10/18 07:59 Last Admin: 10/29/18 08:38 Dose: 500 mg Oxybutynin Chloride (Ditropan) 5 mg PO DAILY [facility] Stop: 12/10/18 08:59 Last Admin: 10/29/18 08:41 Dose: 5 mg Oxycodone/Acetaminophen (Percocet 5/325mg Oral Tab) 1 tab PO Q4H PRN PRN Reason: Pain (Severe) Stop: 12/17/18 08:09 Last Admin: 10/29/18 10:30 Dose: 1 tab Pantoprazole Sodium (Protonix) 40 mg PO DAILY [facility] Stop: 12/22/18 08:59 Last Admin: 10/29/18 08:36 Dose: 40 mg Quetiapine Fumarate 100 mg/ (Quetiapine Fumarate 50 mg) 150 mg PO HS [facility] Stop: 12/20/18 20:59 Last Admin: 10/28/18 20:53 Dose: 150 mg Rivaroxaban (Xarelto) 20 mg PO DAILY [facility] Stop: 12/10/18 08:59 Last Admin: 10/29/18 08:36 Dose: 20 mg Senna (Senna) 8.6 mg PO DAILY [facility] Stop: 12/10/18 08:59 Last Admin: 10/29/18 08:36 Dose: 8.6 mg Sitagliptin Phosphate (Januvia) 100 mg PO QDAC [facility] Stop: 12/10/18 07:29 Last Admin: 10/29/18 06:30 Dose: 100 mg Zolpidem Tartrate (Ambien) 5 mg PO HS PRN PRN Reason: Insomnia Stop: 12/09/18 18:50 Last Admin: 10/28/18 22:00 Dose: 5 mg Physical Exam: 68 y/o patient is gravely disabled and continues to refuse local skin care as well as medical care. Patient has poor insight,unpredictable and in depressed and agitated mood. Patient will continue to be treated and monitored. General: lethargic, alert, obese HEENT: NC/AT, PERRLA Neck: Supple, No JVD Lungs: CTAB, other (no acute respiratory distress) Cardiovascular: RRR Abdomen: soft, non-tender Extremities: other (back sores.) Neurological: no change, bedbound Internal Medicine Assmt/Plan - Assessment Assessment: Refusing Care 5150 Hold. Diabetes. Afib. Bipolar disorder. Depressed mood. Irritated. Anxiety. Copd. Hypertension. Osteoarthritis. Pressure sores. - Plan Plan: Continuation of care. Psych followup/management. Monitor Labs. Continue present meds as directed. Monitor Diet/Nutritional support. Local skin care and wound care. Pain Management. Physical therapy. Occupational therapy. Safety precaution. Supportive care. Fall precaution, frequent nursing rounds, and as needed restraints to prevent fall. Continue collaborating with consulting specialists, case management and nursing team. Will Monitor patient and continue present care management. Nutritional Asmnt/Malnutr-PDOC - Dietary Evaluation Malnutrition Findings (Please click <Entered> for more info): Nutritional Asmnt/Malnutrition Start: 10/11/18 14: 22 Text: Status: Complete Freq: Protocol: Document 10/11/18 14:22 JENNIFERG (Rec: 10/11/18 14:31 DILAN [email or web address]) Nutritional Asmnt/Malnutrition Patient General Information Nutritional Screening High Risk Diagnosis psychosis Pertinent Medical Hx/Surgical Hx HTN, DM, asthma/COPD, arthritis, afib, knee and rt shoulder surger, csection Subjective Information Pt seen eating lunch in bed at time of visit. Food preference provided to RD. Pt asked for real sugar. Explained to pt that she is on [facility] diet and the benifits for diabetes. Pt stated her blood sugar is fine. Glucose 270 at admission noted. Pt appeared not interested in diabetic education. Per EMR, pt consumed 50% of breakfast today. Current Diet Order/ Nutrition Support [facility] Pertinent Medications vit C, colace, glucophage, protonix, senna, januvia Pertinent Labs 10/10 glucose 270 Nutritional Hx/Data Height 1.68 m Height (Calculated Centimeters) 167.6 Current Weight (lbs) 113.398 kg Weight (Calculated Kilograms) 113.4 Weight (Calculated Grams) 471804.1 [place] Body Weight 130 Body Mass Index (BMI) 40.3 Weight Status Morbidly Obese GI Symptoms GI Symptoms None Last BM none Difficult in: None Skin Integrity/Comment: RT. knee surgery scar,redness to coccyx area mitul 15 Estimated Nutritional Goals BEE in Kcals: Adj wt of IBW Calories/Kcals/Kg 25-30 Kcals Calculated 0890-4833 Protein: Adj wt of IBW Protein g/k Protein Calculated 73 Fluid: ml 1825-2190ml (1ml/kcal) Nutritional Problem 1. Problem Problem altered nutrition related labs Etiology hyperglycemia Signs/Symptoms: gluocse 270 at admission Malnutrition Alert Is there a minimum of two criteria No selected? Query Text:Check all the applicable criteria. A minimum of two criteria are recommended for diagnosis of either severe or non-severe malnutrition. Malnutrition Related to Morbid Obesity Malnutrition related to morbid obesity No Intervention/Recommendation Comments 1. Continue with [facility] diet as ordered. Diet preference updated. 2. Monitor PO intake, wt, labs and skin integrity 3. F/U as low risk in 7 days Expected Outcomes/Goals Expected Outcomes/Goals 1. PO intake to meet at least 75% of nutritional needs. 2. Wt stability, skin to remain intact, labs to approach WNL.
--- NOTE | 2018-10-29 17:56 | Progress Notes ---
DATE: 10/28/2018 SUBJECTIVE: Chart was reviewed and the patient interviewed. Also discussed the patient's condition with the staff and reviewed records and labs. The patient is still anxious and in a depressed mood. The patient also has difficult time making a decision regarding her placement especially the place and area that she likes to go to are not available. The patient accepted by [facility], but still did not get a confirmation yet from [facility]. She is also reluctant to go there, but after further discussion with her, she agreed to do so. At the same time, the patient continued to comply with taking her medications with no side effects. ASSESSMENT: The patient is still depressed and still needs placement. TREATMENT PLAN: Continue monitoring her behavior and her condition closely and continue adjusting psychotropic medications and working on placement issue. [facility]# [id number]
[2018-10-30] MEDS: APAP/Oxycodone 5/325mg Tab PO PRN ×5 (00:08→19:51)
[2018-10-30] MEDS: INSULIN LISPRO SLIDING SCALE 100 UNITS/ML UNIT SUBQ SCH ×4 (06:34→21:00)
--- NOTE | 2018-10-30 07:57 | Progress Notes ---
DATE: 10/29/2018 PSYCHIATRIC PROGRESS NOTE SUBJECTIVE: Chart was reviewed and the patient interviewed. Also discussed the patient's condition with the staff and reviewed records and labs. The patient is still anxious and is still in a depressed mood. The patient also is still suspicious and is still wandering about her placement and where she is going to go to live. The patient also is having mood swings at times. Otherwise, the patient has continued to comply with taking her medications and no side effects of medications. ASSESSMENT: The patient is still anxious and depressed. TREATMENT PLAN: Continue to monitor her behavior. Also, it seems that [facility] might accept the patient, but the patient is still thinking of going to [place]. At the same time, we will continue monitoring her behavior and her medications and continue to work on her placement issue. [facility]# [id number]
[2018-10-30] MEDS: Multivitamin w/ Minerals Tab PO SCH (09:18)
[2018-10-30] MEDS: Pantoprazole 40 mg EC Tab PO SCH (09:18)
[2018-10-30] MEDS: Aspirin 81mg Chewable Tab PO SCH (09:19)
--- NOTE | 2018-10-30 23:41 | Progress Notes ---
DATE: 10/30/2018 Case was discussed with staff of the patient, reviewed records. This is a well-known case to me. Covering for Dr. Solomon. I have seen her many times before. She is still unpredictable, impulsive, awaiting placement. Continues to have poor insight. Continues to be unable to make safe plan for self-care. She reported that they found her a place, but they have no bed. She continues to be arana at times. No side effects of medication, no sedation, no nausea. Continues to be anxious, depressed. We will continue to work with the patient in group therapy, milieu therapy, and the adjust medications as needed. JOB# [id number]
--- NOTE | 2018-10-31 02:17 | Progress Notes ---
DATE: 10/30/2018 SUBJECTIVE: The patient was seen in her room. The patient is awake, alert, verbalized depression, low energy, low motivation, poor sleep pattern, appears to be guarded with still episodes of refusing care. Otherwise, the patient is in no acute distress. OBJECTIVE: VITAL SIGNS: Temperature 97.1, heart rate 58, blood pressure 129/62, respirations 19, 95% on room air. HEAD: Atraumatic and normocephalic. EYES: Bilateral conjunctivae are clear. Bilateral pupils are equally round and reactive. NECK: Supple. No JVD. CARDIOVASCULAR: S1, S2 without murmur. PULMONARY: Clear to auscultation. GASTROINTESTINAL: Soft and nontender without guarding. Positive bowel sounds. MUSCULOSKELETAL: No clubbing. No cyanosis noted. ASSESSMENT: 1. Bipolar disorder. 2. Diabetes. 3. Hypertension. 4. Atrial fibrillation. 5. Osteoarthritis. 6. Overactive bladder. PLAN: We will keep the patient in inpatient psychiatric unit. We will followup with psychiatrist to monitor the patient's condition and behavior. Treatment plans were discussed with the patient's nurse. Treatment plans were discussed with Dr. Lewis. JOB# [id number]
[2018-10-31] MEDS: INSULIN LISPRO SLIDING SCALE 100 UNITS/ML UNIT SUBQ SCH ×4 (06:47→21:16)
[2018-10-31] MEDS: APAP/Oxycodone 5/325mg Tab PO PRN ×4 (06:48→19:48)
[2018-10-31] MEDS: Multivitamin w/ Minerals Tab PO SCH (09:11)
[2018-10-31] MEDS: Aspirin 81mg Chewable Tab PO SCH (09:12)
[2018-10-31] MEDS: Pantoprazole 40 mg EC Tab PO SCH (09:12)
--- NOTE | 2018-10-31 17:35 | Internal Medicine Prog Note ---
Internal Medicine Subjective - Subjective Service Date: 10/31/18 Patient seen and examined:: with staff Patient is:: awake, verbal, talking, agitated, other (poor insight, still refusing care.) Patient Complaints of:: other (Hx of Bipolar disorder.) Per staff patient has:: no adverse event, no episodes of fall, noncompliant, refusing care Internal Medicine Objective - Results Result Diagrams: 10/10/18 13:08 10/10/18 13:08 Recent Labs: Laboratory Last Values WBC 7.0 Th/cmm (4.8-10.8) 10/10/18 13:08 RBC 4.00 Mil/cmm (3.80-5.20) 10/10/18 13:08 Hgb 9.9 gm/dL (12-16) L 10/10/18 13:08 Hct 29.9 % (41.0-60) L 10/10/18 13:08 MCV 74.6 fl (81-100) L 10/10/18 13:08 MCH 24.6 pg (27.0-31.0) L 10/10/18 13:08 MCHC Differential 33.0 pg (28.0-36.0) 10/10/18 13:08 RDW 14.6 % (11.5-20.0) 10/10/18 13:08 Plt Count 273 Th/cmm (150-400) 10/10/18 13:08 MPV 6.4 fl 10/10/18 13:08 Neutrophils % 71.8 % (40.0-80.0) 10/10/18 13:08 Lymphocytes % 18.6 % (20.0-50.0) L 10/10/18 13:08 Monocytes % 7.6 % (2.0-10.0) 10/10/18 13:08 Eosinophils % 1.3 % (0.0-5.0) 10/10/18 13:08 Basophils % 0.7 % (0.0-2.0) 10/10/18 13:08 Sodium 137 mEq/L (136-145) 10/10/18 13:08 Potassium 3.9 mEq/L (3.5-5.1) 10/10/18 13:08 Chloride 104 mEq/L (98-107) 10/10/18 13:08 Carbon Dioxide 24.9 mEq/L (21.0-31.0) 10/10/18 13:08 Anion Gap 12.0 (7.0-16.0) 10/10/18 13:08 BUN 16 mg/dL (7-25) 10/10/18 13:08 Creatinine 1.0 mg/dL (0.6-1.2) 10/10/18 13:08 Est GFR ( Amer) > 60.0 ml/min (>90) 10/10/18 13:08 Est GFR (Non-Af Amer) 58.8 ml/min 10/10/18 13:08 BUN/Creatinine Ratio 16.0 10/10/18 13:08 Glucose 270 mg/dL (70-105) H 10/10/18 13:08 POC Glucose 103 MG/DL (70 - 105) 10/31/18 17:03 Calcium 9.0 mg/dL (8.6-10.3) 10/10/18 13:08 Total Bilirubin 0.3 mg/dL (0.3-1.0) 10/10/18 13:08 AST 19 U/L (13-39) 10/10/18 13:08 ALT 17 U/L (7-52) 10/10/18 13:08 Alkaline Phosphatase 87 U/L (34-104) 10/10/18 13:08 Total Protein 6.3 gm/dL (6.0-8.3) 10/10/18 13:08 Albumin 3.7 gm/dL (3.7-5.3) 10/10/18 13:08 Globulin 2.6 gm/dL 10/10/18 13:08 Albumin/Globulin Ratio 1.4 (1.0-1.8) 10/10/18 13:08 Urine Source CLEAN C 10/10/18 13:34 Urine Color YELLOW 10/10/18 13:34 Urine Clarity CLEAR (CLEAR) 10/10/18 13:34 Urine pH 5.5 (4.6 - 8.0) 10/10/18 13:34 Ur Specific [place] 1.025 (1.005-1.030) 10/10/18 13:34 Urine Protein NEGATIVE mg/dL (NEGATIVE) 10/10/18 13:34 Urine Glucose (UA) NEGATIVE mg/dL (NEGATIVE) 10/10/18 13:34 Urine Ketones NEGATIVE mg/dL (NEGATIVE) 10/10/18 13:34 Urine Blood NEGATIVE (NEGATIVE) 10/10/18 13:34 Urine Nitrate NEGATIVE (NEGATIVE) 10/10/18 13:34 Urine Bilirubin NEGATIVE (NEGATIVE) 10/10/18 13:34 Urine Urobilinogen 0.2 E.U./dL (0.2 - 1.0) 10/10/18 13:34 Ur Leukocyte Esterase NEGATIVE (NEGATIVE) 10/10/18 13:34 Urine RBC 0-2 /hpf (0-5) 10/10/18 13:34 Urine WBC 2-5 /hpf (0-5) 10/10/18 13:34 Ur Epithelial Cells MODERATE /lpf (FEW) 10/10/18 13:34 Urine Bacteria FEW /hpf (NONE SEEN) 10/10/18 13:34 - Physical Exam Vitals and I&O: Vital Signs Temp 97.7 F 10/31/18 14:00 Pulse 62 10/31/18 17:10 Resp 20 10/31/18 14:00 BP 127/61 10/31/18 14:00 Pulse Ox 95 10/31/18 14:00 Intake & Output 10/30/18 10/31/18 10/31/18 18:59 06:59 18:59 Intake Total 1500 120 Balance 1500 120 Intake: Oral 1500 120 Other: # Voids 4 3 Active Medications: Current Medications Acetaminophen (Tylenol) 650 mg PO Q4HR PRN PRN Reason: Mild Pain / Temp above 100 Stop: 12/09/18 19:59 Amiodarone HCl (Cordarone) 200 mg PO BID [facility] Stop: 12/10/18 08:59 Last Admin: 10/31/18 17:10 Dose: 200 mg Amlodipine Besylate (Norvasc) 10 mg PO DAILY [facility] Stop: 12/10/18 08:59 Last Admin: 10/31/18 09:18 Dose: Not Given Ascorbic Acid (Vitamin C) 500 mg PO DAILY [facility] Stop: 12/10/18 08:59 Last Admin: 10/31/18 09:12 Dose: 500 mg Aspirin (Aspirin Chewable) 81 mg PO DAILY [facility] Stop: 12/10/18 08:59 Last Admin: 10/31/18 09:12 Dose: 81 mg Dextrose (D50w) 50 ml IVP PRN PRN PRN Reason: BS below 70&not tolerate po Stop: 12/10/18 10:24 Dextrose (Glutose 40%) 18.75 gm PO PRN PRN PRN Reason: BS below 70 & tolerate po Stop: 12/10/18 10:24 Digoxin (Lanoxin) 0.25 mg PO DAILY [facility] Stop: 12/10/18 08:59 Last Admin: 10/31/18 09:19 Dose: Not Given Docusate Sodium (Colace) 100 mg PO BID [facility] Stop: 12/10/18 08:59 Last Admin: 10/31/18 17:11 Dose: 100 mg Escitalopram Oxalate (Lexapro) 20 mg PO DAILY [facility]; Protocol Stop: 12/10/18 08:59 Last Admin: 10/31/18 09:12 Dose: 20 mg Glucagon (Glucagen) 1 mg IM PRN PRN PRN Reason: BS below 70&dextrose ineffecti Stop: 12/10/18 10:24 Insulin Human Lispro (Humalog Insulin Sliding Scale) 0 units SUBQ ACHS [facility]; Protocol Stop: 12/10/18 11:29 Last Admin: 10/31/18 17:06 Dose: Not Given Lorazepam (Ativan) 0.5 mg PO Q4H PRN; Protocol PRN Reason: Anxiety Stop: 12/09/18 19:59 Metformin HCl (Glucophage) 500 mg PO BIDWM [facility] Stop: 12/10/18 07:59 Last Admin: 10/31/18 17:11 Dose: 500 mg Oxybutynin Chloride (Ditropan) 5 mg PO DAILY [facility] Stop: 12/10/18 08:59 Last Admin: 10/31/18 09:12 Dose: 5 mg Oxycodone/Acetaminophen (Percocet 5/325mg Oral Tab) 1 tab PO Q4H PRN PRN Reason: Pain (Severe) Stop: 12/17/18 08:09 Last Admin: 10/31/18 15:01 Dose: 1 tab Pantoprazole Sodium (Protonix) 40 mg PO DAILY [facility] Stop: 12/22/18 08:59 Last Admin: 10/31/18 09:12 Dose: 40 mg Quetiapine Fumarate 100 mg/ (Quetiapine Fumarate 50 mg) 150 mg PO HS [facility] Stop: 12/20/18 20:59 Last Admin: 10/30/18 20:59 Dose: 150 mg Rivaroxaban (Xarelto) 20 mg PO DAILY [facility] Stop: 12/10/18 08:59 Last Admin: 10/31/18 09:15 Dose: 20 mg Senna (Senna) 8.6 mg PO DAILY [facility] Stop: 12/10/18 08:59 Last Admin: 10/31/18 09:12 Dose: 8.6 mg Sitagliptin Phosphate (Januvia) 100 mg PO QDAC [facility] Stop: 12/10/18 07:29 Last Admin: 10/31/18 06:47 Dose: 100 mg Zolpidem Tartrate (Ambien) 5 mg PO HS PRN PRN Reason: Insomnia Stop: 12/09/18 18:50 Last Admin: 10/30/18 20:59 Dose: 5 mg Physical Exam: 68 y/o patient is gravely disabled and continues to refuse care. Patient has poor insight, has low motivation, verbally depressed has poor sleep patterns. Patient will continue to be treated and monitored. General: lethargic, alert, obese HEENT: NC/AT, PERRLA Neck: Supple, No JVD Lungs: CTAB, other (no acute respiratory distress) Cardiovascular: RRR Abdomen: soft, non-tender Extremities: other (back sores, healing slowly, patient refuses care.) Neurological: no change, bedbound Internal Medicine Assmt/Plan - Assessment Assessment: Refusing Care 5150 Hold. Diabetes. Afib. Bipolar disorder. Depressed mood. Irritated. Anxiety. Copd. Hypertension. Overactive bladder. Osteoarthritis. Pressure sores. - Plan Plan: Continuation of care. Psych followup/management. Monitor Labs. Continue present meds as directed. Monitor Diet/Nutritional support. Local skin care and wound care. Pain Management. Physical therapy. Occupational therapy. Safety precaution. Supportive care. Fall precaution, frequent nursing rounds, and as needed restraints to prevent fall. Continue collaborating with consulting specialists, case management and nursing team. Will Monitor patient and continue present care management. Nutritional Asmnt/Malnutr-PDOC - Dietary Evaluation Malnutrition Findings (Please click <Entered> for more info): Nutritional Asmnt/Malnutrition Start: 10/11/18 14: 22 Text: Status: Complete Freq: Protocol: Document 10/11/18 14:22 LCHAILEYG (Rec: 10/11/18 14:31 DILAN [email or web address]) Nutritional Asmnt/Malnutrition Patient General Information Nutritional Screening High Risk Diagnosis psychosis Pertinent Medical Hx/Surgical Hx HTN, DM, asthma/COPD, arthritis, afib, knee and rt shoulder surger, csection Subjective Information Pt seen eating lunch in bed at time of visit. Food preference provided to RD. Pt asked for real sugar. Explained to pt that she is on [facility] diet and the benifits for diabetes. Pt stated her blood sugar is fine. Glucose 270 at admission noted. Pt appeared not interested in diabetic education. Per EMR, pt consumed 50% of breakfast today. Current Diet Order/ Nutrition Support [facility] Pertinent Medications vit C, colace, glucophage, protonix, senna, januvia Pertinent Labs 10/10 glucose 270 Nutritional Hx/Data Height 1.68 m Height (Calculated Centimeters) 167.6 Current Weight (lbs) 113.398 kg Weight (Calculated Kilograms) 113.4 Weight (Calculated Grams) 428110.1 [place] Body Weight 130 Body Mass Index (BMI) 40.3 Weight Status Morbidly Obese GI Symptoms GI Symptoms None Last BM none Difficult in: None Skin Integrity/Comment: RT. knee surgery scar,redness to coccyx area mitul 15 Estimated Nutritional Goals BEE in Kcals: Adj wt of IBW Calories/Kcals/Kg 25-30 Kcals Calculated 3450-2747 Protein: Adj wt of IBW Protein g/k Protein Calculated 73 Fluid: ml 1825-2190ml (1ml/kcal) Nutritional Problem 1. Problem Problem altered nutrition related labs Etiology hyperglycemia Signs/Symptoms: gluocse 270 at admission Malnutrition Alert Is there a minimum of two criteria No selected? Query Text:Check all the applicable criteria. A minimum of two criteria are recommended for diagnosis of either severe or non-severe malnutrition. Malnutrition Related to Morbid Obesity Malnutrition related to morbid obesity No Intervention/Recommendation Comments 1. Continue with [facility] diet as ordered. Diet preference updated. 2. Monitor PO intake, wt, labs and skin integrity 3. F/U as low risk in 7 days Expected Outcomes/Goals Expected Outcomes/Goals 1. PO intake to meet at least 75% of nutritional needs. 2. Wt stability, skin to remain intact, labs to approach WNL.
--- NOTE | 2018-10-31 23:38 | Progress Notes ---
DATE: 10/31/[address] Solomon. SUBJECTIVE: Case was discussed with staff of the patient, reviewed records. The patient continues to be unpredictable, impulsive, needing redirection. She continues to have poor insight. She is easily agitated. She continues to isolate herself. Apparently, trying to find her a place. No side effects with the medication, no sedation, and no nausea. We will continue to work with the patient in group therapy, milieu therapy, and adjust the medications as needed. JOB# [id number]
[2018-11-01] MEDS: APAP/Oxycodone 5/325mg Tab PO PRN ×4 (06:25→20:58)
[2018-11-01] MEDS: INSULIN LISPRO SLIDING SCALE 100 UNITS/ML UNIT SUBQ SCH ×4 (06:30→21:05)
[2018-11-01] MEDS: Multivitamin w/ Minerals Tab PO SCH (08:06)
[2018-11-01] MEDS: Pantoprazole 40 mg EC Tab PO SCH (08:07)
[2018-11-01] MEDS: Aspirin 81mg Chewable Tab PO SCH (08:09)
--- NOTE | 2018-11-01 10:10 | Internal Medicine Prog Note ---
Internal Medicine Subjective - Subjective Service Date: 11/01/18 Patient seen and examined:: with staff Patient is:: awake, verbal, talking, agitated, other (poor insight, still refusing care.) Patient Complaints of:: other (Hx of Bipolar disorder.) Per staff patient has:: no adverse event, no episodes of fall, noncompliant, refusing care Internal Medicine Objective - Results Result Diagrams: 10/10/18 13:08 10/10/18 13:08 Recent Labs: Laboratory Last Values WBC 7.0 Th/cmm (4.8-10.8) 10/10/18 13:08 RBC 4.00 Mil/cmm (3.80-5.20) 10/10/18 13:08 Hgb 9.9 gm/dL (12-16) L 10/10/18 13:08 Hct 29.9 % (41.0-60) L 10/10/18 13:08 MCV 74.6 fl (81-100) L 10/10/18 13:08 MCH 24.6 pg (27.0-31.0) L 10/10/18 13:08 MCHC Differential 33.0 pg (28.0-36.0) 10/10/18 13:08 RDW 14.6 % (11.5-20.0) 10/10/18 13:08 Plt Count 273 Th/cmm (150-400) 10/10/18 13:08 MPV 6.4 fl 10/10/18 13:08 Neutrophils % 71.8 % (40.0-80.0) 10/10/18 13:08 Lymphocytes % 18.6 % (20.0-50.0) L 10/10/18 13:08 Monocytes % 7.6 % (2.0-10.0) 10/10/18 13:08 Eosinophils % 1.3 % (0.0-5.0) 10/10/18 13:08 Basophils % 0.7 % (0.0-2.0) 10/10/18 13:08 Sodium 137 mEq/L (136-145) 10/10/18 13:08 Potassium 3.9 mEq/L (3.5-5.1) 10/10/18 13:08 Chloride 104 mEq/L (98-107) 10/10/18 13:08 Carbon Dioxide 24.9 mEq/L (21.0-31.0) 10/10/18 13:08 Anion Gap 12.0 (7.0-16.0) 10/10/18 13:08 BUN 16 mg/dL (7-25) 10/10/18 13:08 Creatinine 1.0 mg/dL (0.6-1.2) 10/10/18 13:08 Est GFR ( Amer) > 60.0 ml/min (>90) 10/10/18 13:08 Est GFR (Non-Af Amer) 58.8 ml/min 10/10/18 13:08 BUN/Creatinine Ratio 16.0 10/10/18 13:08 Glucose 270 mg/dL (70-105) H 10/10/18 13:08 POC Glucose 133 MG/DL (70 - 105) H 11/01/18 06:15 Calcium 9.0 mg/dL (8.6-10.3) 10/10/18 13:08 Total Bilirubin 0.3 mg/dL (0.3-1.0) 10/10/18 13:08 AST 19 U/L (13-39) 10/10/18 13:08 ALT 17 U/L (7-52) 10/10/18 13:08 Alkaline Phosphatase 87 U/L (34-104) 10/10/18 13:08 Total Protein 6.3 gm/dL (6.0-8.3) 10/10/18 13:08 Albumin 3.7 gm/dL (3.7-5.3) 10/10/18 13:08 Globulin 2.6 gm/dL 10/10/18 13:08 Albumin/Globulin Ratio 1.4 (1.0-1.8) 10/10/18 13:08 Urine Source CLEAN C 10/10/18 13:34 Urine Color YELLOW 10/10/18 13:34 Urine Clarity CLEAR (CLEAR) 10/10/18 13:34 Urine pH 5.5 (4.6 - 8.0) 10/10/18 13:34 Ur Specific [place] 1.025 (1.005-1.030) 10/10/18 13:34 Urine Protein NEGATIVE mg/dL (NEGATIVE) 10/10/18 13:34 Urine Glucose (UA) NEGATIVE mg/dL (NEGATIVE) 10/10/18 13:34 Urine Ketones NEGATIVE mg/dL (NEGATIVE) 10/10/18 13:34 Urine Blood NEGATIVE (NEGATIVE) 10/10/18 13:34 Urine Nitrate NEGATIVE (NEGATIVE) 10/10/18 13:34 Urine Bilirubin NEGATIVE (NEGATIVE) 10/10/18 13:34 Urine Urobilinogen 0.2 E.U./dL (0.2 - 1.0) 10/10/18 13:34 Ur Leukocyte Esterase NEGATIVE (NEGATIVE) 10/10/18 13:34 Urine RBC 0-2 /hpf (0-5) 10/10/18 13:34 Urine WBC 2-5 /hpf (0-5) 10/10/18 13:34 Ur Epithelial Cells MODERATE /lpf (FEW) 10/10/18 13:34 Urine Bacteria FEW /hpf (NONE SEEN) 10/10/18 13:34 - Physical Exam Vitals and I&O: Vital Signs Temp 98.2 F 11/01/18 06:23 Pulse 64 11/01/18 08:10 Resp 18 11/01/18 06:23 BP 124/60 11/01/18 08:08 Pulse Ox 97 11/01/18 06:23 Intake & Output 10/31/18 11/01/18 11/01/18 18:59 06:59 18:59 Intake Total 2800 120 Balance 2800 120 Intake: Oral 2800 120 Other: # Voids 6 3 # Bowel Movements 1 Active Medications: Current Medications Acetaminophen (Tylenol) 650 mg PO Q4HR PRN PRN Reason: Mild Pain / Temp above 100 Stop: 12/09/18 19:59 Amiodarone HCl (Cordarone) 200 mg PO BID [facility] Stop: 12/10/18 08:59 Last Admin: 11/01/18 08:07 Dose: Not Given Amlodipine Besylate (Norvasc) 10 mg PO DAILY [facility] Stop: 12/10/18 08:59 Last Admin: 11/01/18 08:08 Dose: Not Given Ascorbic Acid (Vitamin C) 500 mg PO DAILY [facility] Stop: 12/10/18 08:59 Last Admin: 11/01/18 08:09 Dose: 500 mg Aspirin (Aspirin Chewable) 81 mg PO DAILY [facility] Stop: 12/10/18 08:59 Last Admin: 11/01/18 08:09 Dose: 81 mg Dextrose (D50w) 50 ml IVP PRN PRN PRN Reason: BS below 70&not tolerate po Stop: 12/10/18 10:24 Dextrose (Glutose 40%) 18.75 gm PO PRN PRN PRN Reason: BS below 70 & tolerate po Stop: 12/10/18 10:24 Digoxin (Lanoxin) 0.25 mg PO DAILY [facility] Stop: 12/10/18 08:59 Last Admin: 11/01/18 08:10 Dose: Not Given Docusate Sodium (Colace) 100 mg PO BID [facility] Stop: 12/10/18 08:59 Last Admin: 11/01/18 08:08 Dose: 100 mg Escitalopram Oxalate (Lexapro) 20 mg PO DAILY [facility]; Protocol Stop: 12/10/18 08:59 Last Admin: 11/01/18 08:09 Dose: 20 mg Glucagon (Glucagen) 1 mg IM PRN PRN PRN Reason: BS below 70&dextrose ineffecti Stop: 12/10/18 10:24 Insulin Human Lispro (Humalog Insulin Sliding Scale) 0 units SUBQ ACHS [facility]; Protocol Stop: 12/10/18 11:29 Last Admin: 11/01/18 06:30 Dose: Not Given Lorazepam (Ativan) 0.5 mg PO Q4H PRN; Protocol PRN Reason: Anxiety Stop: 12/09/18 19:59 Metformin HCl (Glucophage) 500 mg PO BIDWM [facility] Stop: 12/10/18 07:59 Last Admin: 11/01/18 08:09 Dose: 500 mg Oxybutynin Chloride (Ditropan) 5 mg PO DAILY [facility] Stop: 12/10/18 08:59 Last Admin: 11/01/18 08:08 Dose: 5 mg Oxycodone/Acetaminophen (Percocet 5/325mg Oral Tab) 1 tab PO Q4H PRN PRN Reason: Pain (Severe) Stop: 12/17/18 08:09 Last Admin: 11/01/18 06:25 Dose: 1 tab Pantoprazole Sodium (Protonix) 40 mg PO DAILY [facility] Stop: 12/22/18 08:59 Last Admin: 11/01/18 08:07 Dose: 40 mg Quetiapine Fumarate 100 mg/ (Quetiapine Fumarate 50 mg) 150 mg PO HS [facility] Stop: 12/20/18 20:59 Last Admin: 10/31/18 21:09 Dose: 150 mg Rivaroxaban (Xarelto) 20 mg PO DAILY [facility] Stop: 12/10/18 08:59 Last Admin: 11/01/18 08:06 Dose: 20 mg Senna (Senna) 8.6 mg PO DAILY [facility] Stop: 12/10/18 08:59 Last Admin: 11/01/18 08:09 Dose: 8.6 mg Sitagliptin Phosphate (Januvia) 100 mg PO QDAC [facility] Stop: 12/10/18 07:29 Last Admin: 11/01/18 06:40 Dose: 100 mg Zolpidem Tartrate (Ambien) 5 mg PO HS PRN PRN Reason: Insomnia Stop: 12/09/18 18:50 Last Admin: 10/31/18 21:09 Dose: 5 mg Physical Exam: 68 y/o patient is gravely disabled and continues to refuse care. Patient continues to have poor insight, has low motivation, verbally depressed has poor sleep patterns. Patient will continue to be treated and monitored. General: lethargic, alert, obese HEENT: NC/AT, PERRLA Neck: Supple, No JVD Lungs: CTAB, other (no acute respiratory distress) Cardiovascular: RRR Abdomen: soft, non-tender Extremities: other (back sores, healing slowly, patient refuses care.) Neurological: no change, bedbound Internal Medicine Assmt/Plan - Assessment Assessment: Refusing Care 5150 Hold. Diabetes. Afib. Bipolar disorder. Depressed mood. Irritated. Anxiety. Copd. Hypertension. Overactive bladder. Osteoarthritis. Pressure sores. - Plan Plan: Continuation of care. Psych followup/management. Monitor Labs. Continue present meds as directed. Monitor Diet/Nutritional support. Local skin care and wound care. Pain Management. Physical therapy. Occupational therapy. Safety precaution. Supportive care. Fall precaution, frequent nursing rounds, and as needed restraints to prevent fall. Continue collaborating with consulting specialists, case management and nursing team. Will Monitor patient and continue present care management. Nutritional Asmnt/Malnutr-PDOC - Dietary Evaluation Malnutrition Findings (Please click <Entered> for more info): Nutritional Asmnt/Malnutrition Start: 10/11/18 14: 22 Text: Status: Complete Freq: Protocol: Document 10/11/18 14:22 LCHAILEYG (Rec: 10/11/18 14:31 LCHAILEYG [email or web address]) Nutritional Asmnt/Malnutrition Patient General Information Nutritional Screening High Risk Diagnosis psychosis Pertinent Medical Hx/Surgical Hx HTN, DM, asthma/COPD, arthritis, afib, knee and rt shoulder surger, csection Subjective Information Pt seen eating lunch in bed at time of visit. Food preference provided to RD. Pt asked for real sugar. Explained to pt that she is on [facility] diet and the benifits for diabetes. Pt stated her blood sugar is fine. Glucose 270 at admission noted. Pt appeared not interested in diabetic education. Per EMR, pt consumed 50% of breakfast today. Current Diet Order/ Nutrition Support [facility] Pertinent Medications vit C, colace, glucophage, protonix, senna, januvia Pertinent Labs 10/10 glucose 270 Nutritional Hx/Data Height 1.68 m Height (Calculated Centimeters) 167.6 Current Weight (lbs) 113.398 kg Weight (Calculated Kilograms) 113.4 Weight (Calculated Grams) 135993.1 [place] Body Weight 130 Body Mass Index (BMI) 40.3 Weight Status Morbidly Obese GI Symptoms GI Symptoms None Last BM none Difficult in: None Skin Integrity/Comment: RT. knee surgery scar,redness to coccyx area mitul 15 Estimated Nutritional Goals BEE in Kcals: Adj wt of IBW Calories/Kcals/Kg 25-30 Kcals Calculated 1664-2944 Protein: Adj wt of IBW Protein g/k Protein Calculated 73 Fluid: ml 1825-2190ml (1ml/kcal) Nutritional Problem 1. Problem Problem altered nutrition related labs Etiology hyperglycemia Signs/Symptoms: gluocse 270 at admission Malnutrition Alert Is there a minimum of two criteria No selected? Query Text:Check all the applicable criteria. A minimum of two criteria are recommended for diagnosis of either severe or non-severe malnutrition. Malnutrition Related to Morbid Obesity Malnutrition related to morbid obesity No Intervention/Recommendation Comments 1. Continue with [facility] diet as ordered. Diet preference updated. 2. Monitor PO intake, wt, labs and skin integrity 3. F/U as low risk in 7 days Expected Outcomes/Goals Expected Outcomes/Goals 1. PO intake to meet at least 75% of nutritional needs. 2. Wt stability, skin to remain intact, labs to approach WNL.
--- NOTE | 2018-11-02 05:06 | Progress Notes ---
DATE: SUBJECTIVE: Chart was reviewed and the patient interviewed. Also discussed the patient's condition with the staff and reviewed records and labs. The patient is still in a depressed mood. The patient also is still at times demanding but most of the time cooperative with her treatment. She also still needs directions. The patient also still feeling hopeless that no place accepting her yet, and the patient was supposed to go today to [facility], but staff informed me that she is not accepted there after they said that they are waiting for bed for today. It is not clear what exactly messages that I am getting from social service in regard to placement of the patient. ASSESSMENT: The patient is still depressed. TREATMENT PLAN: Continue to monitor her behavior closely. Also, continue working on placement issue and discharge plans as well as supportive therapy for the patient. [facility]# [id number]
[2018-11-02] MEDS: APAP/Oxycodone 5/325mg Tab PO PRN ×4 (06:36→20:23)
[2018-11-02] MEDS: INSULIN LISPRO SLIDING SCALE 100 UNITS/ML UNIT SUBQ SCH ×4 (06:46→20:51)
[2018-11-02] MEDS: Pantoprazole 40 mg EC Tab PO SCH (08:52)
[2018-11-02] MEDS: Multivitamin w/ Minerals Tab PO SCH (08:52)
[2018-11-02] MEDS: Aspirin 81mg Chewable Tab PO SCH (08:56)
--- NOTE | 2018-11-02 12:00 | Progress Notes ---
DATE: SUBJECTIVE: Chart was reviewed and the patient interviewed. Also, discussed the patient's condition with the staff and reviewed records and labs. The patient is still in a depressed mood. The patient also is still disappointed because no place accepted her yet. The patient also is feeling hopeless and helpless. Otherwise, the patient is more cooperative with treatment and is compliant with taking her medications with no side effects of medications. ASSESSMENT: The patient is still depressed, but placement is an issue. TREATMENT PLAN: Continue to monitor her behavior and her condition and also working on supportive therapy. Also, working on discharge plans and placement issue. social science manager said that [facility] her, but they said that they will not and still placement is an issue. [facility]# [id number]
[2018-11-03] MEDS: APAP/Oxycodone 5/325mg Tab PO PRN ×4 (06:05→20:32)
[2018-11-03] MEDS: INSULIN LISPRO SLIDING SCALE 100 UNITS/ML UNIT SUBQ SCH ×4 (06:32→20:35)
[2018-11-03] MEDS: Multivitamin w/ Minerals Tab PO SCH (09:01)
[2018-11-03] MEDS: Aspirin 81mg Chewable Tab PO SCH (09:01)
[2018-11-03] MEDS: Pantoprazole 40 mg EC Tab PO SCH (09:01)
--- NOTE | 2018-11-03 10:58 | Internal Medicine Prog Note ---
Internal Medicine Subjective - Subjective Service Date: 11/03/18 Patient is:: awake, verbal, talking, agitated, other (poor insight, still refusing care.) Patient Complaints of:: other (Hx of Bipolar disorder.) Per staff patient has:: no adverse event, no episodes of fall, noncompliant, refusing care Internal Medicine Objective - Results Result Diagrams: 10/10/18 13:08 10/10/18 13:08 Recent Labs: Laboratory Last Values WBC 7.0 Th/cmm (4.8-10.8) 10/10/18 13:08 RBC 4.00 Mil/cmm (3.80-5.20) 10/10/18 13:08 Hgb 9.9 gm/dL (12-16) L 10/10/18 13:08 Hct 29.9 % (41.0-60) L 10/10/18 13:08 MCV 74.6 fl (81-100) L 10/10/18 13:08 MCH 24.6 pg (27.0-31.0) L 10/10/18 13:08 MCHC Differential 33.0 pg (28.0-36.0) 10/10/18 13:08 RDW 14.6 % (11.5-20.0) 10/10/18 13:08 Plt Count 273 Th/cmm (150-400) 10/10/18 13:08 MPV 6.4 fl 10/10/18 13:08 Neutrophils % 71.8 % (40.0-80.0) 10/10/18 13:08 Lymphocytes % 18.6 % (20.0-50.0) L 10/10/18 13:08 Monocytes % 7.6 % (2.0-10.0) 10/10/18 13:08 Eosinophils % 1.3 % (0.0-5.0) 10/10/18 13:08 Basophils % 0.7 % (0.0-2.0) 10/10/18 13:08 Sodium 137 mEq/L (136-145) 10/10/18 13:08 Potassium 3.9 mEq/L (3.5-5.1) 10/10/18 13:08 Chloride 104 mEq/L (98-107) 10/10/18 13:08 Carbon Dioxide 24.9 mEq/L (21.0-31.0) 10/10/18 13:08 Anion Gap 12.0 (7.0-16.0) 10/10/18 13:08 BUN 16 mg/dL (7-25) 10/10/18 13:08 Creatinine 1.0 mg/dL (0.6-1.2) 10/10/18 13:08 Est GFR ( Amer) > 60.0 ml/min (>90) 10/10/18 13:08 Est GFR (Non-Af Amer) 58.8 ml/min 10/10/18 13:08 BUN/Creatinine Ratio 16.0 10/10/18 13:08 Glucose 270 mg/dL (70-105) H 10/10/18 13:08 POC Glucose 125 MG/DL (70 - 105) H 11/03/18 06:00 Calcium 9.0 mg/dL (8.6-10.3) 10/10/18 13:08 Total Bilirubin 0.3 mg/dL (0.3-1.0) 10/10/18 13:08 AST 19 U/L (13-39) 10/10/18 13:08 ALT 17 U/L (7-52) 10/10/18 13:08 Alkaline Phosphatase 87 U/L (34-104) 10/10/18 13:08 Total Protein 6.3 gm/dL (6.0-8.3) 10/10/18 13:08 Albumin 3.7 gm/dL (3.7-5.3) 10/10/18 13:08 Globulin 2.6 gm/dL 10/10/18 13:08 Albumin/Globulin Ratio 1.4 (1.0-1.8) 10/10/18 13:08 Urine Source CLEAN C 10/10/18 13:34 Urine Color YELLOW 10/10/18 13:34 Urine Clarity CLEAR (CLEAR) 10/10/18 13:34 Urine pH 5.5 (4.6 - 8.0) 10/10/18 13:34 Ur Specific [place] 1.025 (1.005-1.030) 10/10/18 13:34 Urine Protein NEGATIVE mg/dL (NEGATIVE) 10/10/18 13:34 Urine Glucose (UA) NEGATIVE mg/dL (NEGATIVE) 10/10/18 13:34 Urine Ketones NEGATIVE mg/dL (NEGATIVE) 10/10/18 13:34 Urine Blood NEGATIVE (NEGATIVE) 10/10/18 13:34 Urine Nitrate NEGATIVE (NEGATIVE) 10/10/18 13:34 Urine Bilirubin NEGATIVE (NEGATIVE) 10/10/18 13:34 Urine Urobilinogen 0.2 E.U./dL (0.2 - 1.0) 10/10/18 13:34 Ur Leukocyte Esterase NEGATIVE (NEGATIVE) 10/10/18 13:34 Urine RBC 0-2 /hpf (0-5) 10/10/18 13:34 Urine WBC 2-5 /hpf (0-5) 10/10/18 13:34 Ur Epithelial Cells MODERATE /lpf (FEW) 10/10/18 13:34 Urine Bacteria FEW /hpf (NONE SEEN) 10/10/18 13:34 - Physical Exam Vitals and I&O: Vital Signs Temp 97.1 F 11/03/18 06:22 Pulse 57 11/03/18 09:04 Resp 19 11/03/18 06:22 BP 127/64 11/03/18 09:02 Pulse Ox 94 11/03/18 06:22 Intake & Output 11/02/18 11/03/18 11/03/18 18:59 06:59 18:59 Intake Total 1500 120 Balance 1500 120 Intake: Oral 1500 120 Other: # Voids 6 2 # Bowel Movements 0 0 Active Medications: Current Medications Acetaminophen (Tylenol) 650 mg PO Q4HR PRN PRN Reason: Mild Pain / Temp above 100 Stop: 12/09/18 19:59 Amiodarone HCl (Cordarone) 200 mg PO BID [facility] Stop: 12/10/18 08:59 Last Admin: 11/03/18 09:01 Dose: Not Given Amlodipine Besylate (Norvasc) 10 mg PO DAILY [facility] Stop: 12/10/18 08:59 Last Admin: 11/03/18 09:02 Dose: Not Given Ascorbic Acid (Vitamin C) 500 mg PO DAILY [facility] Stop: 12/10/18 08:59 Last Admin: 11/03/18 09:03 Dose: 500 mg Aspirin (Aspirin Chewable) 81 mg PO DAILY [facility] Stop: 12/10/18 08:59 Last Admin: 11/03/18 09:01 Dose: 81 mg Dextrose (D50w) 50 ml IVP PRN PRN PRN Reason: BS below 70&not tolerate po Stop: 12/10/18 10:24 Dextrose (Glutose 40%) 18.75 gm PO PRN PRN PRN Reason: BS below 70 & tolerate po Stop: 12/10/18 10:24 Digoxin (Lanoxin) 0.25 mg PO DAILY [facility] Stop: 12/10/18 08:59 Last Admin: 11/03/18 09:04 Dose: 0.25 mg Docusate Sodium (Colace) 100 mg PO BID [facility] Stop: 12/10/18 08:59 Last Admin: 11/03/18 09:01 Dose: 100 mg Escitalopram Oxalate (Lexapro) 20 mg PO DAILY [facility]; Protocol Stop: 12/10/18 08:59 Last Admin: 11/03/18 09:01 Dose: 20 mg Glucagon (Glucagen) 1 mg IM PRN PRN PRN Reason: BS below 70&dextrose ineffecti Stop: 12/10/18 10:24 Insulin Human Lispro (Humalog Insulin Sliding Scale) 0 units SUBQ ACHS [facility]; Protocol Stop: 12/10/18 11:29 Last Admin: 11/03/18 06:32 Dose: Not Given Lorazepam (Ativan) 0.5 mg PO Q4H PRN; Protocol PRN Reason: Anxiety Stop: 12/09/18 19:59 Metformin HCl (Glucophage) 500 mg PO BIDWM [facility] Stop: 12/10/18 07:59 Last Admin: 11/03/18 09:01 Dose: 500 mg Oxybutynin Chloride (Ditropan) 5 mg PO DAILY [facility] Stop: 12/10/18 08:59 Last Admin: 11/03/18 09:04 Dose: 5 mg Oxycodone/Acetaminophen (Percocet 5/325mg Oral Tab) 1 tab PO Q4H PRN PRN Reason: Severe Pain Stop: 12/31/18 16:54 Last Admin: 11/03/18 10:15 Dose: 1 tab Pantoprazole Sodium (Protonix) 40 mg PO DAILY [facility] Stop: 12/22/18 08:59 Last Admin: 11/03/18 09:01 Dose: 40 mg Quetiapine Fumarate 100 mg/ (Quetiapine Fumarate 50 mg) 150 mg PO HS [facility] Stop: 12/20/18 20:59 Last Admin: 11/02/18 20:49 Dose: 150 mg Rivaroxaban (Xarelto) 20 mg PO DAILY [facility] Stop: 01/01/19 08:59 Last Admin: 11/03/18 09:01 Dose: 20 mg Senna (Senna) 8.6 mg PO DAILY [facility] Stop: 12/10/18 08:59 Last Admin: 11/03/18 09:03 Dose: 8.6 mg Sitagliptin Phosphate (Januvia) 100 mg PO QDAC [facility] Stop: 12/10/18 07:29 Last Admin: 11/03/18 06:32 Dose: 100 mg Zolpidem Tartrate (Ambien) 5 mg PO HS PRN PRN Reason: Insomnia Stop: 12/09/18 18:50 Last Admin: 11/02/18 20:50 Dose: 5 mg General: lethargic, alert, obese HEENT: NC/AT, PERRLA Neck: Supple, No JVD Lungs: CTAB, other (no acute respiratory distress) Cardiovascular: RRR Abdomen: soft, non-tender Extremities: other (back sores, healing slowly, patient refuses care.) Neurological: no change, bedbound Internal Medicine Assmt/Plan - Assessment Assessment: Refusing Care 5150 Hold. Diabetes. Afib. Bipolar disorder. Depressed mood. Anxiety. Copd. Hypertension. Osteoarthritis. Pressure sores. - Plan Plan: fall precautions cpm Nutritional Asmnt/Malnutr-PDOC - Dietary Evaluation Malnutrition Findings (Please click <Entered> for more info): Nutritional Asmnt/Malnutrition Start: 10/11/18 14: 22 Text: Status: Complete Freq: Protocol: Document 10/11/18 14:22 LCHENG (Rec: 10/11/18 14:31 LCHAILEYG [email or web address]) Nutritional Asmnt/Malnutrition Patient General Information Nutritional Screening High Risk Diagnosis psychosis Pertinent Medical Hx/Surgical Hx HTN, DM, asthma/COPD, arthritis, afib, knee and rt shoulder surger, csection Subjective Information Pt seen eating lunch in bed at time of visit. Food preference provided to RD. Pt asked for real sugar. Explained to pt that she is on [facility] diet and the benifits for diabetes. Pt stated her blood sugar is fine. Glucose 270 at admission noted. Pt appeared not interested in diabetic education. Per EMR, pt consumed 50% of breakfast today. Current Diet Order/ Nutrition Support [facility] Pertinent Medications vit C, colace, glucophage, protonix, senna, januvia Pertinent Labs 10/10 glucose 270 Nutritional Hx/Data Height 5 ft 6 in Height (Calculated Centimeters) 167.6 Current Weight (lbs) 250 lb Weight (Calculated Kilograms) 113.4 Weight (Calculated Grams) 922689.1 [place] Body Weight 130 Body Mass Index (BMI) 40.3 Weight Status Morbidly Obese GI Symptoms GI Symptoms None Last BM none Difficult in: None Skin Integrity/Comment: RT. knee surgery scar,redness to coccyx area mitul 15 Estimated Nutritional Goals BEE in Kcals: Adj wt of IBW Calories/Kcals/Kg 25-30 Kcals Calculated 8106-8202 Protein: Adj wt of IBW Protein g/k Protein Calculated 73 Fluid: ml 1825-2190ml (1ml/kcal) Nutritional Problem 1. Problem Problem altered nutrition related labs Etiology hyperglycemia Signs/Symptoms: gluocse 270 at admission Malnutrition Alert Is there a minimum of two criteria No selected? Query Text:Check all the applicable criteria. A minimum of two criteria are recommended for diagnosis of either severe or non-severe malnutrition. Malnutrition Related to Morbid Obesity Malnutrition related to morbid obesity No Intervention/Recommendation Comments 1. Continue with [facility] diet as ordered. Diet preference updated. 2. Monitor PO intake, wt, labs and skin integrity 3. F/U as low risk in 7 days Expected Outcomes/Goals Expected Outcomes/Goals 1. PO intake to meet at least 75% of nutritional needs. 2. Wt stability, skin to remain intact, labs to approach WNL.
--- NOTE | 2018-11-03 18:28 | Progress Notes ---
DATE: 11/03/2018 PSYCHIATRIC PROGRESS NOTE. SUBJECTIVE: Chart was reviewed and the patient interviewed. Also discussed the patient's condition with the staff and reviewed records and labs. The patient is still in a depressed mood because no place accepted her yet. The patient also is still guarded and is still hoping to go to certain places that might be not assessable. The patient also is still withdrawn and interacting minimally with others. On the other hand, the patient is compliant with taking her medications, with no side effects of medications. ASSESSMENT: The patient is still depressed and still needs placement. TREATMENT PLAN: Continue to monitor her behavior and her condition closely. Also, continue to work on placement issue and discharge plans. [facility]# [id number]
[2018-11-04] MEDS: INSULIN LISPRO SLIDING SCALE 100 UNITS/ML UNIT SUBQ SCH ×4 (06:38→21:02)
[2018-11-04] MEDS: Multivitamin w/ Minerals Tab PO SCH (08:46)
[2018-11-04] MEDS: Pantoprazole 40 mg EC Tab PO SCH (08:46)
[2018-11-04] MEDS: Aspirin 81mg Chewable Tab PO SCH (08:46)
[2018-11-04] MEDS: APAP/Oxycodone 5/325mg Tab PO PRN ×3 (10:25→18:48)
--- NOTE | 2018-11-04 18:16 | Internal Medicine Prog Note ---
Internal Medicine Subjective - Subjective Service Date: 11/04/18 Patient is:: awake, verbal, talking, agitated, other (poor insight, still refusing care.) Patient Complaints of:: other (Hx of Bipolar disorder.) Per staff patient has:: no adverse event, no episodes of fall, noncompliant, refusing care Internal Medicine Objective - Results Result Diagrams: 10/10/18 13:08 10/10/18 13:08 Recent Labs: Laboratory Last Values WBC 7.0 Th/cmm (4.8-10.8) 10/10/18 13:08 RBC 4.00 Mil/cmm (3.80-5.20) 10/10/18 13:08 Hgb 9.9 gm/dL (12-16) L 10/10/18 13:08 Hct 29.9 % (41.0-60) L 10/10/18 13:08 MCV 74.6 fl (81-100) L 10/10/18 13:08 MCH 24.6 pg (27.0-31.0) L 10/10/18 13:08 MCHC Differential 33.0 pg (28.0-36.0) 10/10/18 13:08 RDW 14.6 % (11.5-20.0) 10/10/18 13:08 Plt Count 273 Th/cmm (150-400) 10/10/18 13:08 MPV 6.4 fl 10/10/18 13:08 Neutrophils % 71.8 % (40.0-80.0) 10/10/18 13:08 Lymphocytes % 18.6 % (20.0-50.0) L 10/10/18 13:08 Monocytes % 7.6 % (2.0-10.0) 10/10/18 13:08 Eosinophils % 1.3 % (0.0-5.0) 10/10/18 13:08 Basophils % 0.7 % (0.0-2.0) 10/10/18 13:08 Sodium 137 mEq/L (136-145) 10/10/18 13:08 Potassium 3.9 mEq/L (3.5-5.1) 10/10/18 13:08 Chloride 104 mEq/L (98-107) 10/10/18 13:08 Carbon Dioxide 24.9 mEq/L (21.0-31.0) 10/10/18 13:08 Anion Gap 12.0 (7.0-16.0) 10/10/18 13:08 BUN 16 mg/dL (7-25) 10/10/18 13:08 Creatinine 1.0 mg/dL (0.6-1.2) 10/10/18 13:08 Est GFR ( Amer) > 60.0 ml/min (>90) 10/10/18 13:08 Est GFR (Non-Af Amer) 58.8 ml/min 10/10/18 13:08 BUN/Creatinine Ratio 16.0 10/10/18 13:08 Glucose 270 mg/dL (70-105) H 10/10/18 13:08 POC Glucose 102 MG/DL (70 - 105) 11/04/18 16:42 Calcium 9.0 mg/dL (8.6-10.3) 10/10/18 13:08 Total Bilirubin 0.3 mg/dL (0.3-1.0) 10/10/18 13:08 AST 19 U/L (13-39) 10/10/18 13:08 ALT 17 U/L (7-52) 10/10/18 13:08 Alkaline Phosphatase 87 U/L (34-104) 10/10/18 13:08 Total Protein 6.3 gm/dL (6.0-8.3) 10/10/18 13:08 Albumin 3.7 gm/dL (3.7-5.3) 10/10/18 13:08 Globulin 2.6 gm/dL 10/10/18 13:08 Albumin/Globulin Ratio 1.4 (1.0-1.8) 10/10/18 13:08 Urine Source CLEAN C 10/10/18 13:34 Urine Color YELLOW 10/10/18 13:34 Urine Clarity CLEAR (CLEAR) 10/10/18 13:34 Urine pH 5.5 (4.6 - 8.0) 10/10/18 13:34 Ur Specific [place] 1.025 (1.005-1.030) 10/10/18 13:34 Urine Protein NEGATIVE mg/dL (NEGATIVE) 10/10/18 13:34 Urine Glucose (UA) NEGATIVE mg/dL (NEGATIVE) 10/10/18 13:34 Urine Ketones NEGATIVE mg/dL (NEGATIVE) 10/10/18 13:34 Urine Blood NEGATIVE (NEGATIVE) 10/10/18 13:34 Urine Nitrate NEGATIVE (NEGATIVE) 10/10/18 13:34 Urine Bilirubin NEGATIVE (NEGATIVE) 10/10/18 13:34 Urine Urobilinogen 0.2 E.U./dL (0.2 - 1.0) 10/10/18 13:34 Ur Leukocyte Esterase NEGATIVE (NEGATIVE) 10/10/18 13:34 Urine RBC 0-2 /hpf (0-5) 10/10/18 13:34 Urine WBC 2-5 /hpf (0-5) 10/10/18 13:34 Ur Epithelial Cells MODERATE /lpf (FEW) 10/10/18 13:34 Urine Bacteria FEW /hpf (NONE SEEN) 10/10/18 13:34 - Physical Exam Vitals and I&O: Vital Signs Temp 96.8 F 11/04/18 13:58 Pulse 59 11/04/18 17:09 Resp 20 11/04/18 13:58 BP 121/70 11/04/18 13:58 Pulse Ox 98 11/04/18 13:58 Intake & Output 11/03/18 11/04/18 11/04/18 18:59 06:59 18:59 Intake Total 2800 120 2800 Balance 2800 120 2800 Intake: Oral 2800 120 2800 Other: # Voids 6 3 5 # Bowel Movements 0 1 Active Medications: Current Medications Acetaminophen (Tylenol) 650 mg PO Q4HR PRN PRN Reason: Mild Pain / Temp above 100 Stop: 12/09/18 19:59 Amiodarone HCl (Cordarone) 200 mg PO BID [facility] Stop: 12/10/18 08:59 Last Admin: 11/04/18 17:09 Dose: Not Given Amlodipine Besylate (Norvasc) 10 mg PO DAILY [facility] Stop: 12/10/18 08:59 Last Admin: 11/04/18 09:05 Dose: Not Given Ascorbic Acid (Vitamin C) 500 mg PO DAILY [facility] Stop: 12/10/18 08:59 Last Admin: 11/04/18 08:44 Dose: 500 mg Aspirin (Aspirin Chewable) 81 mg PO DAILY [facility] Stop: 12/10/18 08:59 Last Admin: 11/04/18 08:46 Dose: 81 mg Dextrose (D50w) 50 ml IVP PRN PRN PRN Reason: BS below 70&not tolerate po Stop: 12/10/18 10:24 Dextrose (Glutose 40%) 18.75 gm PO PRN PRN PRN Reason: BS below 70 & tolerate po Stop: 12/10/18 10:24 Digoxin (Lanoxin) 0.25 mg PO DAILY [facility] Stop: 12/10/18 08:59 Last Admin: 11/04/18 09:05 Dose: Not Given Docusate Sodium (Colace) 100 mg PO BID [facility] Stop: 12/10/18 08:59 Last Admin: 11/04/18 17:08 Dose: 100 mg Escitalopram Oxalate (Lexapro) 20 mg PO DAILY [facility]; Protocol Stop: 12/10/18 08:59 Last Admin: 11/04/18 08:45 Dose: 20 mg Glucagon (Glucagen) 1 mg IM PRN PRN PRN Reason: BS below 70&dextrose ineffecti Stop: 12/10/18 10:24 Insulin Human Lispro (Humalog Insulin Sliding Scale) 0 units SUBQ ACHS [facility]; Protocol Stop: 12/10/18 11:29 Last Admin: 11/04/18 17:03 Dose: Not Given Lorazepam (Ativan) 0.5 mg PO Q4H PRN; Protocol PRN Reason: Anxiety Stop: 12/09/18 19:59 Metformin HCl (Glucophage) 500 mg PO BIDWM [facility] Stop: 12/10/18 07:59 Last Admin: 11/04/18 17:10 Dose: 500 mg Oxybutynin Chloride (Ditropan) 5 mg PO DAILY [facility] Stop: 12/10/18 08:59 Last Admin: 11/04/18 08:44 Dose: 5 mg Oxycodone/Acetaminophen (Percocet 5/325mg Oral Tab) 1 tab PO Q4H PRN PRN Reason: Severe Pain Stop: 12/31/18 16:54 Last Admin: 11/04/18 13:55 Dose: 1 tab Pantoprazole Sodium (Protonix) 40 mg PO DAILY [facility] Stop: 12/22/18 08:59 Last Admin: 11/04/18 08:46 Dose: 40 mg Quetiapine Fumarate 100 mg/ (Quetiapine Fumarate 50 mg) 150 mg PO HS [facility] Stop: 12/20/18 20:59 Last Admin: 11/03/18 20:32 Dose: 150 mg Rivaroxaban (Xarelto) 20 mg PO DAILY [facility] Stop: 01/01/19 08:59 Last Admin: 11/04/18 08:44 Dose: 20 mg Senna (Senna) 8.6 mg PO DAILY [facility] Stop: 12/10/18 08:59 Last Admin: 11/04/18 08:45 Dose: 8.6 mg Sitagliptin Phosphate (Januvia) 100 mg PO QDAC [facility] Stop: 12/10/18 07:29 Last Admin: 11/04/18 06:39 Dose: 100 mg Zolpidem Tartrate (Ambien) 5 mg PO HS PRN PRN Reason: Insomnia Stop: 12/09/18 18:50 Last Admin: 11/03/18 20:33 Dose: 5 mg General: lethargic, alert, obese HEENT: NC/AT, PERRLA Neck: Supple, No JVD Lungs: CTAB, other (no acute respiratory distress) Cardiovascular: RRR Abdomen: soft, non-tender Extremities: other (back sores, healing slowly, patient refuses care.) Neurological: no change, bedbound Internal Medicine Assmt/Plan - Assessment Assessment: Refusing Care 5150 Hold. Diabetes. Afib. Bipolar disorder. Depressed mood. Anxiety. Copd. Hypertension. Osteoarthritis. Pressure sores. - Plan Plan: fall precautions cpm Nutritional Asmnt/Malnutr-PDOC - Dietary Evaluation Malnutrition Findings (Please click <Entered> for more info): Nutritional Asmnt/Malnutrition Start: 10/11/18 14: 22 Text: Status: Complete Freq: Protocol: Document 10/11/18 14:22 LCHENG (Rec: 10/11/18 14:31 LCHENG [email or web address]) Nutritional Asmnt/Malnutrition Patient General Information Nutritional Screening High Risk Diagnosis psychosis Pertinent Medical Hx/Surgical Hx HTN, DM, asthma/COPD, arthritis, afib, knee and rt shoulder surger, csection Subjective Information Pt seen eating lunch in bed at time of visit. Food preference provided to RD. Pt asked for real sugar. Explained to pt that she is on [facility] diet and the benifits for diabetes. Pt stated her blood sugar is fine. Glucose 270 at admission noted. Pt appeared not interested in diabetic education. Per EMR, pt consumed 50% of breakfast today. Current Diet Order/ Nutrition Support [facility] Pertinent Medications vit C, colace, glucophage, protonix, senna, januvia Pertinent Labs 10/10 glucose 270 Nutritional Hx/Data Height 5 ft 6 in Height (Calculated Centimeters) 167.6 Current Weight (lbs) 250 lb Weight (Calculated Kilograms) 113.4 Weight (Calculated Grams) 288488.1 [place] Body Weight 130 Body Mass Index (BMI) 40.3 Weight Status Morbidly Obese GI Symptoms GI Symptoms None Last BM none Difficult in: None Skin Integrity/Comment: RT. knee surgery scar,redness to coccyx area mitul 15 Estimated Nutritional Goals BEE in Kcals: Adj wt of IBW Calories/Kcals/Kg 25-30 Kcals Calculated 5378-2708 Protein: Adj wt of IBW Protein g/k Protein Calculated 73 Fluid: ml 1825-2190ml (1ml/kcal) Nutritional Problem 1. Problem Problem altered nutrition related labs Etiology hyperglycemia Signs/Symptoms: gluocse 270 at admission Malnutrition Alert Is there a minimum of two criteria No selected? Query Text:Check all the applicable criteria. A minimum of two criteria are recommended for diagnosis of either severe or non-severe malnutrition. Malnutrition Related to Morbid Obesity Malnutrition related to morbid obesity No Intervention/Recommendation Comments 1. Continue with [facility] diet as ordered. Diet preference updated. 2. Monitor PO intake, wt, labs and skin integrity 3. F/U as low risk in 7 days Expected Outcomes/Goals Expected Outcomes/Goals 1. PO intake to meet at least 75% of nutritional needs. 2. Wt stability, skin to remain intact, labs to approach WNL.
--- NOTE | 2018-11-04 23:37 | Progress Notes ---
DATE: SUBJECTIVE: Chart was reviewed and the patient interviewed. Also discussed the patient's condition with the staff and reviewed records and labs. The patient is calm and she is still less irritable and less agitated. The patient also is interacting more, but she still wants to be left alone and she is still in a depressed mood. The patient also seems to be more cooperative in regard to his treatment. Otherwise, the patient is compliant with taking her medications with no side effects of medications. ASSESSMENT: The patient is still guarded and withdrawn. TREATMENT PLAN: We will continue working on discharge plans and placement issue. Also, counseling case manager still working on trying to find placement for the patient and also continue to follow up with her medications. JOB# [id number]
[2018-11-05] MEDS: INSULIN LISPRO SLIDING SCALE 100 UNITS/ML UNIT SUBQ SCH ×4 (06:48→20:26)
[2018-11-05] MEDS: APAP/Oxycodone 5/325mg Tab PO PRN ×3 (06:55→20:25)
[2018-11-05] MEDS: Pantoprazole 40 mg EC Tab PO SCH (09:09)
[2018-11-05] MEDS: Multivitamin w/ Minerals Tab PO SCH (09:09)
[2018-11-05] MEDS: Aspirin 81mg Chewable Tab PO SCH (09:09)
--- NOTE | 2018-11-05 09:33 | Internal Medicine Prog Note ---
Internal Medicine Subjective - Subjective Service Date: 11/05/18 Patient seen and examined:: with staff Patient is:: awake, verbal, talking, agitated, other (poor insight, more interactive, prefers to be left alone.) Patient Complaints of:: other (Hx of Bipolar disorder.) Per staff patient has:: no adverse event, no episodes of fall, noncompliant, refusing care Internal Medicine Objective - Results Result Diagrams: 10/10/18 13:08 10/10/18 13:08 Recent Labs: Laboratory Last Values WBC 7.0 Th/cmm (4.8-10.8) 10/10/18 13:08 RBC 4.00 Mil/cmm (3.80-5.20) 10/10/18 13:08 Hgb 9.9 gm/dL (12-16) L 10/10/18 13:08 Hct 29.9 % (41.0-60) L 10/10/18 13:08 MCV 74.6 fl (81-100) L 10/10/18 13:08 MCH 24.6 pg (27.0-31.0) L 10/10/18 13:08 MCHC Differential 33.0 pg (28.0-36.0) 10/10/18 13:08 RDW 14.6 % (11.5-20.0) 10/10/18 13:08 Plt Count 273 Th/cmm (150-400) 10/10/18 13:08 MPV 6.4 fl 10/10/18 13:08 Neutrophils % 71.8 % (40.0-80.0) 10/10/18 13:08 Lymphocytes % 18.6 % (20.0-50.0) L 10/10/18 13:08 Monocytes % 7.6 % (2.0-10.0) 10/10/18 13:08 Eosinophils % 1.3 % (0.0-5.0) 10/10/18 13:08 Basophils % 0.7 % (0.0-2.0) 10/10/18 13:08 Sodium 137 mEq/L (136-145) 10/10/18 13:08 Potassium 3.9 mEq/L (3.5-5.1) 10/10/18 13:08 Chloride 104 mEq/L (98-107) 10/10/18 13:08 Carbon Dioxide 24.9 mEq/L (21.0-31.0) 10/10/18 13:08 Anion Gap 12.0 (7.0-16.0) 10/10/18 13:08 BUN 16 mg/dL (7-25) 10/10/18 13:08 Creatinine 1.0 mg/dL (0.6-1.2) 10/10/18 13:08 Est GFR ( Amer) > 60.0 ml/min (>90) 10/10/18 13:08 Est GFR (Non-Af Amer) 58.8 ml/min 10/10/18 13:08 BUN/Creatinine Ratio 16.0 10/10/18 13:08 Glucose 270 mg/dL (70-105) H 10/10/18 13:08 POC Glucose 108 MG/DL (70 - 105) H 11/05/18 06:45 Calcium 9.0 mg/dL (8.6-10.3) 10/10/18 13:08 Total Bilirubin 0.3 mg/dL (0.3-1.0) 10/10/18 13:08 AST 19 U/L (13-39) 10/10/18 13:08 ALT 17 U/L (7-52) 10/10/18 13:08 Alkaline Phosphatase 87 U/L (34-104) 10/10/18 13:08 Total Protein 6.3 gm/dL (6.0-8.3) 10/10/18 13:08 Albumin 3.7 gm/dL (3.7-5.3) 10/10/18 13:08 Globulin 2.6 gm/dL 10/10/18 13:08 Albumin/Globulin Ratio 1.4 (1.0-1.8) 10/10/18 13:08 Urine Source CLEAN C 10/10/18 13:34 Urine Color YELLOW 10/10/18 13:34 Urine Clarity CLEAR (CLEAR) 10/10/18 13:34 Urine pH 5.5 (4.6 - 8.0) 10/10/18 13:34 Ur Specific [place] 1.025 (1.005-1.030) 10/10/18 13:34 Urine Protein NEGATIVE mg/dL (NEGATIVE) 10/10/18 13:34 Urine Glucose (UA) NEGATIVE mg/dL (NEGATIVE) 10/10/18 13:34 Urine Ketones NEGATIVE mg/dL (NEGATIVE) 10/10/18 13:34 Urine Blood NEGATIVE (NEGATIVE) 10/10/18 13:34 Urine Nitrate NEGATIVE (NEGATIVE) 10/10/18 13:34 Urine Bilirubin NEGATIVE (NEGATIVE) 10/10/18 13:34 Urine Urobilinogen 0.2 E.U./dL (0.2 - 1.0) 10/10/18 13:34 Ur Leukocyte Esterase NEGATIVE (NEGATIVE) 10/10/18 13:34 Urine RBC 0-2 /hpf (0-5) 10/10/18 13:34 Urine WBC 2-5 /hpf (0-5) 10/10/18 13:34 Ur Epithelial Cells MODERATE /lpf (FEW) 10/10/18 13:34 Urine Bacteria FEW /hpf (NONE SEEN) 10/10/18 13:34 - Physical Exam Vitals and I&O: Vital Signs Temp 98.0 F 11/04/18 21:58 Pulse 71 11/05/18 09:11 Resp 19 11/04/18 21:58 BP 130/78 11/05/18 09:10 Pulse Ox 96 11/04/18 21:58 Intake & Output 11/04/18 11/05/18 11/05/18 18:59 06:59 18:59 Intake Total 2800 240 Balance 2800 240 Intake: Oral 2800 240 Other: # Voids 5 2 # Bowel Movements 1 0 Stool Characteristics Soft Active Medications: Current Medications Acetaminophen (Tylenol) 650 mg PO Q4HR PRN PRN Reason: Mild Pain / Temp above 100 Stop: 12/09/18 19:59 Amiodarone HCl (Cordarone) 200 mg PO BID [facility] Stop: 12/10/18 08:59 Last Admin: 11/05/18 09:11 Dose: 200 mg Amlodipine Besylate (Norvasc) 10 mg PO DAILY [facility] Stop: 12/10/18 08:59 Last Admin: 11/05/18 09:10 Dose: 10 mg Ascorbic Acid (Vitamin C) 500 mg PO DAILY [facility] Stop: 12/10/18 08:59 Last Admin: 11/05/18 09:09 Dose: 500 mg Aspirin (Aspirin Chewable) 81 mg PO DAILY [facility] Stop: 12/10/18 08:59 Last Admin: 11/05/18 09:09 Dose: 81 mg Dextrose (D50w) 50 ml IVP PRN PRN PRN Reason: BS below 70&not tolerate po Stop: 12/10/18 10:24 Dextrose (Glutose 40%) 18.75 gm PO PRN PRN PRN Reason: BS below 70 & tolerate po Stop: 12/10/18 10:24 Digoxin (Lanoxin) 0.25 mg PO DAILY [facility] Stop: 12/10/18 08:59 Last Admin: 11/05/18 09:10 Dose: 0.25 mg Docusate Sodium (Colace) 100 mg PO BID [facility] Stop: 12/10/18 08:59 Last Admin: 11/05/18 09:09 Dose: 100 mg Escitalopram Oxalate (Lexapro) 20 mg PO DAILY [facility]; Protocol Stop: 12/10/18 08:59 Last Admin: 11/05/18 09:09 Dose: 20 mg Glucagon (Glucagen) 1 mg IM PRN PRN PRN Reason: BS below 70&dextrose ineffecti Stop: 12/10/18 10:24 Insulin Human Lispro (Humalog Insulin Sliding Scale) 0 units SUBQ ACHS [facility]; Protocol Stop: 12/10/18 11:29 Last Admin: 11/05/18 06:48 Dose: Not Given Lorazepam (Ativan) 0.5 mg PO Q4H PRN; Protocol PRN Reason: Anxiety Stop: 12/09/18 19:59 Metformin HCl (Glucophage) 500 mg PO BIDWM [facility] Stop: 12/10/18 07:59 Last Admin: 11/05/18 08:16 Dose: 500 mg Oxybutynin Chloride (Ditropan) 5 mg PO DAILY [facility] Stop: 12/10/18 08:59 Last Admin: 11/05/18 09:09 Dose: 5 mg Oxycodone/Acetaminophen (Percocet 5/325mg Oral Tab) 1 tab PO Q4H PRN PRN Reason: Severe Pain Stop: 12/31/18 16:54 Last Admin: 11/05/18 06:55 Dose: 1 tab Pantoprazole Sodium (Protonix) 40 mg PO DAILY [facility] Stop: 12/22/18 08:59 Last Admin: 11/05/18 09:09 Dose: 40 mg Quetiapine Fumarate 100 mg/ (Quetiapine Fumarate 50 mg) 150 mg PO HS [facility] Stop: 12/20/18 20:59 Last Admin: 11/04/18 21:39 Dose: 150 mg Rivaroxaban (Xarelto) 20 mg PO DAILY [facility] Stop: 01/01/19 08:59 Last Admin: 11/05/18 09:09 Dose: 20 mg Senna (Senna) 8.6 mg PO DAILY [facility] Stop: 12/10/18 08:59 Last Admin: 11/05/18 09:09 Dose: 8.6 mg Sitagliptin Phosphate (Januvia) 100 mg PO QDAC [facility] Stop: 12/10/18 07:29 Last Admin: 11/05/18 06:42 Dose: 100 mg Zolpidem Tartrate (Ambien) 5 mg PO HS PRN PRN Reason: Insomnia Stop: 12/09/18 18:50 Last Admin: 11/04/18 21:43 Dose: 5 mg Physical Exam: 68 y/o patient is gravely disabled and continues to refuse care at times. Patient continues to have poor insight, has low motivation, verbally depressed has poor sleep patterns. She is more interactive yet prefers to be alone. Patient will continue to be treated and monitored. General: alert, obese HEENT: NC/AT, PERRLA Neck: Supple, No JVD Lungs: CTAB, other (no acute respiratory distress) Cardiovascular: RRR Abdomen: soft, non-tender Extremities: other (back sores, healing slowly.) Neurological: no change, bedbound Internal Medicine Assmt/Plan - Assessment Assessment: Refusing Care 5150 Hold. Diabetes. Afib. Bipolar disorder. Depressed mood. Irritated. Anxiety. Copd. Hypertension. Overactive bladder. Osteoarthritis. Pressure sores. - Plan Plan: Continuation of care. Psych followup/management. Monitor Labs. Continue present meds as directed. Monitor Diet/Nutritional support. Local skin care and wound care. Pain Management. Physical therapy. Occupational therapy. Safety precaution. Supportive care. Fall precaution, frequent nursing rounds, and as needed restraints to prevent fall. Continue collaborating with consulting specialists, case management and nursing team. Will Monitor patient and continue present care management. Nutritional Asmnt/Malnutr-PDOC - Dietary Evaluation Malnutrition Findings (Please click <Entered> for more info): Nutritional Asmnt/Malnutrition Start: 10/11/18 14: 22 Text: Status: Complete Freq: Protocol: Document 10/11/18 14:22 LCHENG (Rec: 10/11/18 14:31 [facility] [email or web address]) Nutritional Asmnt/Malnutrition Patient General Information Nutritional Screening High Risk Diagnosis psychosis Pertinent Medical Hx/Surgical Hx HTN, DM, asthma/COPD, arthritis, afib, knee and rt shoulder surger, csection Subjective Information Pt seen eating lunch in bed at time of visit. Food preference provided to RD. Pt asked for real sugar. Explained to pt that she is on [facility] diet and the benifits for diabetes. Pt stated her blood sugar is fine. Glucose 270 at admission noted. Pt appeared not interested in diabetic education. Per EMR, pt consumed 50% of breakfast today. Current Diet Order/ Nutrition Support [facility] Pertinent Medications vit C, colace, glucophage, protonix, senna, januvia Pertinent Labs 10/10 glucose 270 Nutritional Hx/Data Height 1.68 m Height (Calculated Centimeters) 167.6 Current Weight (lbs) 113.398 kg Weight (Calculated Kilograms) 113.4 Weight (Calculated Grams) 565221.1 [place] Body Weight 130 Body Mass Index (BMI) 40.3 Weight Status Morbidly Obese GI Symptoms GI Symptoms None Last BM none Difficult in: None Skin Integrity/Comment: RT. knee surgery scar,redness to coccyx area mitul 15 Estimated Nutritional Goals BEE in Kcals: Adj wt of IBW Calories/Kcals/Kg 25-30 Kcals Calculated 0297-8231 Protein: Adj wt of IBW Protein g/k Protein Calculated 73 Fluid: ml 1825-2190ml (1ml/kcal) Nutritional Problem 1. Problem Problem altered nutrition related labs Etiology hyperglycemia Signs/Symptoms: gluocse 270 at admission Malnutrition Alert Is there a minimum of two criteria No selected? Query Text:Check all the applicable criteria. A minimum of two criteria are recommended for diagnosis of either severe or non-severe malnutrition. Malnutrition Related to Morbid Obesity Malnutrition related to morbid obesity No Intervention/Recommendation Comments 1. Continue with [facility] diet as ordered. Diet preference updated. 2. Monitor PO intake, wt, labs and skin integrity 3. F/U as low risk in 7 days Expected Outcomes/Goals Expected Outcomes/Goals 1. PO intake to meet at least 75% of nutritional needs. 2. Wt stability, skin to remain intact, labs to approach WNL.
[2018-11-06] MEDS: INSULIN LISPRO SLIDING SCALE 100 UNITS/ML UNIT SUBQ SCH ×4 (06:34→21:16)
[2018-11-06] MEDS: APAP/Oxycodone 5/325mg Tab PO PRN ×4 (06:34→19:54)
[2018-11-06] MEDS: Aspirin 81mg Chewable Tab PO SCH (08:48)
[2018-11-06] MEDS: Pantoprazole 40 mg EC Tab PO SCH (08:49)
[2018-11-06] MEDS: Multivitamin w/ Minerals Tab PO SCH (08:49)
--- NOTE | 2018-11-06 16:43 | Progress Notes ---
DATE: 11/05/2018 SUBJECTIVE: Chart was reviewed and the patient interviewed. Also, discussed the patient's condition with the staff and reviewed records and labs. The patient is still argumentative and she still has episodes of anger and depression. The patient is still depressed, especially with her length of stay and that no place is willing to accept her yet. She also is still at times uncooperative with the staff in regard to ____, but seems to be slightly less than before. ASSESSMENT: The patient is still depressed and waiting for placement. TREATMENT PLAN: Continue to monitor her behavior and condition. Also, continue to work on discharge plans and on placement issue. credit portfolio manager is still trying to find placement for the patient. JOB# [id number]
--- NOTE | 2018-11-06 21:20 | Progress Notes ---
DATE: 11/06/2018 The patient in the hospital, history of bipolar. She apparently came in because she was refusing treatment, refusing to shower unruly. On [id number], she is sleeping, arousable, but does not want to talk to me. Noted to still be irritable at times, upset, not very patient with staff, wants to be left alone, allowing ADLs, ongoing symptoms, sometimes gets very mad, very demanding at times. Note reviewed, documentation reviewed. Dr. Solomon noting that the patient remains irritable, agitated, but there seems to be some improvement, some depression noted still. Medications were noted. Vitals were reviewed. We will continue to monitor and follow up. [facility]# [id number]
--- NOTE | 2018-11-06 22:51 | Progress Notes ---
DATE: 11/06/2018 SUBJECTIVE: The patient was seen in her room. The patient appears to be depressed. Continues to have low energy, low mood. Nurses reported that the patient has been refusing care. Otherwise, the patient appears to be in no acute distress. OBJECTIVE: VITAL SIGNS: Temperature 97.1, heart rate 57, blood pressure 133/72, respiration 18, and 96% on room air. HEENT: Head is atraumatic and normocephalic. Eyes: Bilateral conjunctivae are clear. Bilateral pupils are equally round and reactive. NECK: Supple. No JVD. CARDIOVASCULAR: S1 and S2, without murmur. PULMONARY: Clear to auscultation. GASTROINTESTINAL: Soft and nontender without guarding. Positive bowel sounds. MUSCULOSKELETAL: No clubbing. No cyanosis noted. ASSESSMENT: 1. Bipolar disorder. 2. Hypertension. 3. Atrial fibrillation. 4. Diabetes. 5. Osteoarthritis. 6. Overactive bladder. PLAN: We will keep the patient to Inpatient Psychiatric Unit. We will followup with psychiatrist and monitor the patient's condition and behavior. Treatment plans were discussed with the patient's nurse. Treatment plans were discussed with Dr. Lewis. JOB# [id number]
[2018-11-07] MEDS: APAP/Oxycodone 5/325mg Tab PO PRN ×4 (06:34→19:59)
[2018-11-07] MEDS: INSULIN LISPRO SLIDING SCALE 100 UNITS/ML UNIT SUBQ SCH ×4 (06:35→20:31)
[2018-11-07] MEDS: Pantoprazole 40 mg EC Tab PO SCH (08:53)
[2018-11-07] MEDS: Aspirin 81mg Chewable Tab PO SCH (08:54)
[2018-11-07] MEDS: Multivitamin w/ Minerals Tab PO SCH (08:54)
--- NOTE | 2018-11-07 09:20 | Progress Notes ---
DATE: 11/07/2018 SUBJECTIVE: The patient in the hospital with complaints of feeling restless, rude to staff at times, yelling, screaming at times, demanding, easily irritated and the patient difficult to treat from a nursing standpoint, the patient irritable this morning, does not want to talk to me, wants to be left alone, ongoing symptoms, difficult interview. Medications were noted, discussed with staff. We will continue to monitor. Continue dosing of Seroquel. JOB# [id number]
--- NOTE | 2018-11-07 14:58 | Internal Medicine Prog Note ---
Internal Medicine Subjective - Subjective Service Date: 11/07/18 Patient seen and examined:: with staff, chart reviewed Patient is:: awake, verbal, interactive, in bed, talking, other (poor insight, more interactive, prefers to be left alone.) Patient Complaints of:: other (wants percocet to be scheduled.) Per staff patient has:: no adverse event, no episodes of fall Internal Medicine Objective - Results Result Diagrams: 10/10/18 13:08 10/10/18 13:08 Recent Labs: Laboratory Last Values WBC 7.0 Th/cmm (4.8-10.8) 10/10/18 13:08 RBC 4.00 Mil/cmm (3.80-5.20) 10/10/18 13:08 Hgb 9.9 gm/dL (12-16) L 10/10/18 13:08 Hct 29.9 % (41.0-60) L 10/10/18 13:08 MCV 74.6 fl (81-100) L 10/10/18 13:08 MCH 24.6 pg (27.0-31.0) L 10/10/18 13:08 MCHC Differential 33.0 pg (28.0-36.0) 10/10/18 13:08 RDW 14.6 % (11.5-20.0) 10/10/18 13:08 Plt Count 273 Th/cmm (150-400) 10/10/18 13:08 MPV 6.4 fl 10/10/18 13:08 Neutrophils % 71.8 % (40.0-80.0) 10/10/18 13:08 Lymphocytes % 18.6 % (20.0-50.0) L 10/10/18 13:08 Monocytes % 7.6 % (2.0-10.0) 10/10/18 13:08 Eosinophils % 1.3 % (0.0-5.0) 10/10/18 13:08 Basophils % 0.7 % (0.0-2.0) 10/10/18 13:08 Sodium 137 mEq/L (136-145) 10/10/18 13:08 Potassium 3.9 mEq/L (3.5-5.1) 10/10/18 13:08 Chloride 104 mEq/L (98-107) 10/10/18 13:08 Carbon Dioxide 24.9 mEq/L (21.0-31.0) 10/10/18 13:08 Anion Gap 12.0 (7.0-16.0) 10/10/18 13:08 BUN 16 mg/dL (7-25) 10/10/18 13:08 Creatinine 1.0 mg/dL (0.6-1.2) 10/10/18 13:08 Est GFR ( Amer) > 60.0 ml/min (>90) 10/10/18 13:08 Est GFR (Non-Af Amer) 58.8 ml/min 10/10/18 13:08 BUN/Creatinine Ratio 16.0 10/10/18 13:08 Glucose 270 mg/dL (70-105) H 10/10/18 13:08 POC Glucose 95 MG/DL (70 - 105) 11/06/18 19:46 Calcium 9.0 mg/dL (8.6-10.3) 10/10/18 13:08 Total Bilirubin 0.3 mg/dL (0.3-1.0) 10/10/18 13:08 AST 19 U/L (13-39) 10/10/18 13:08 ALT 17 U/L (7-52) 10/10/18 13:08 Alkaline Phosphatase 87 U/L (34-104) 10/10/18 13:08 Total Protein 6.3 gm/dL (6.0-8.3) 10/10/18 13:08 Albumin 3.7 gm/dL (3.7-5.3) 10/10/18 13:08 Globulin 2.6 gm/dL 10/10/18 13:08 Albumin/Globulin Ratio 1.4 (1.0-1.8) 10/10/18 13:08 Urine Source CLEAN C 10/10/18 13:34 Urine Color YELLOW 10/10/18 13:34 Urine Clarity CLEAR (CLEAR) 10/10/18 13:34 Urine pH 5.5 (4.6 - 8.0) 10/10/18 13:34 Ur Specific [place] 1.025 (1.005-1.030) 10/10/18 13:34 Urine Protein NEGATIVE mg/dL (NEGATIVE) 10/10/18 13:34 Urine Glucose (UA) NEGATIVE mg/dL (NEGATIVE) 10/10/18 13:34 Urine Ketones NEGATIVE mg/dL (NEGATIVE) 10/10/18 13:34 Urine Blood NEGATIVE (NEGATIVE) 10/10/18 13:34 Urine Nitrate NEGATIVE (NEGATIVE) 10/10/18 13:34 Urine Bilirubin NEGATIVE (NEGATIVE) 10/10/18 13:34 Urine Urobilinogen 0.2 E.U./dL (0.2 - 1.0) 10/10/18 13:34 Ur Leukocyte Esterase NEGATIVE (NEGATIVE) 10/10/18 13:34 Urine RBC 0-2 /hpf (0-5) 10/10/18 13:34 Urine WBC 2-5 /hpf (0-5) 10/10/18 13:34 Ur Epithelial Cells MODERATE /lpf (FEW) 10/10/18 13:34 Urine Bacteria FEW /hpf (NONE SEEN) 10/10/18 13:34 - Physical Exam Vitals and I&O: Vital Signs Temp 98.1 F 11/07/18 14:00 Pulse 62 11/07/18 14:00 Resp 18 11/07/18 14:00 BP 126/71 11/07/18 14:00 Pulse Ox 98 11/07/18 14:00 Intake & Output 11/06/18 11/07/18 11/07/18 18:59 06:59 18:59 Intake Total 1500 720 Output Total 2 Balance 1500 718 Intake: Oral 1500 720 Output: Urine/Stool Mix 2 Other: # Voids 6 1 # Bowel Movements 0 Active Medications: Current Medications Acetaminophen (Tylenol) 650 mg PO Q4HR PRN PRN Reason: Mild Pain / Temp above 100 Stop: 12/09/18 19:59 Amiodarone HCl (Cordarone) 200 mg PO BID [facility] Stop: 12/10/18 08:59 Last Admin: 11/07/18 08:58 Dose: Not Given Amlodipine Besylate (Norvasc) 10 mg PO DAILY [facility] Stop: 12/10/18 08:59 Last Admin: 11/07/18 08:59 Dose: Not Given Ascorbic Acid (Vitamin C) 500 mg PO DAILY [facility] Stop: 12/10/18 08:59 Last Admin: 11/07/18 08:53 Dose: 500 mg Aspirin (Aspirin Chewable) 81 mg PO DAILY [facility] Stop: 12/10/18 08:59 Last Admin: 11/07/18 08:54 Dose: 81 mg Dextrose (D50w) 50 ml IVP PRN PRN PRN Reason: BS below 70&not tolerate po Stop: 12/10/18 10:24 Dextrose (Glutose 40%) 18.75 gm PO PRN PRN PRN Reason: BS below 70 & tolerate po Stop: 12/10/18 10:24 Digoxin (Lanoxin) 0.25 mg PO DAILY [facility] Stop: 12/10/18 08:59 Last Admin: 11/07/18 08:59 Dose: Not Given Docusate Sodium (Colace) 100 mg PO BID [facility] Stop: 12/10/18 08:59 Last Admin: 11/07/18 08:54 Dose: 100 mg Escitalopram Oxalate (Lexapro) 20 mg PO DAILY [facility]; Protocol Stop: 12/10/18 08:59 Last Admin: 11/07/18 08:53 Dose: 20 mg Glucagon (Glucagen) 1 mg IM PRN PRN PRN Reason: BS below 70&dextrose ineffecti Stop: 12/10/18 10:24 Insulin Human Lispro (Humalog Insulin Sliding Scale) 0 units SUBQ ACHS [facility]; Protocol Stop: 12/10/18 11:29 Last Admin: 11/07/18 11:30 Dose: Not Given Lorazepam (Ativan) 0.5 mg PO Q4H PRN; Protocol PRN Reason: Anxiety Stop: 12/09/18 19:59 Metformin HCl (Glucophage) 500 mg PO BIDWM [facility] Stop: 12/10/18 07:59 Last Admin: 11/07/18 08:53 Dose: 500 mg Oxybutynin Chloride (Ditropan) 5 mg PO DAILY [facility] Stop: 12/10/18 08:59 Last Admin: 11/07/18 09:00 Dose: 5 mg Oxycodone/Acetaminophen (Percocet 5/325mg Oral Tab) 1 tab PO Q4H PRN PRN Reason: Severe Pain Stop: 12/31/18 16:54 Last Admin: 11/07/18 14:48 Dose: 1 tab Pantoprazole Sodium (Protonix) 40 mg PO DAILY [facility] Stop: 12/22/18 08:59 Last Admin: 11/07/18 08:53 Dose: 40 mg Quetiapine Fumarate 100 mg/ (Quetiapine Fumarate 50 mg) 150 mg PO HS [facility] Stop: 12/20/18 20:59 Last Admin: 11/06/18 21:15 Dose: 150 mg Rivaroxaban (Xarelto) 20 mg PO DAILY [facility] Stop: 01/01/19 08:59 Last Admin: 11/07/18 08:53 Dose: 20 mg Senna (Senna) 8.6 mg PO DAILY [facility] Stop: 12/10/18 08:59 Last Admin: 11/07/18 08:54 Dose: 8.6 mg Sitagliptin Phosphate (Januvia) 100 mg PO QDAC [facility] Stop: 12/10/18 07:29 Last Admin: 11/07/18 06:34 Dose: 100 mg Zolpidem Tartrate (Ambien) 5 mg PO HS PRN PRN Reason: Insomnia Stop: 12/09/18 18:50 Last Admin: 11/06/18 21:15 Dose: 5 mg General: alert, obese HEENT: NC/AT, PERRLA Neck: Supple, No JVD Lungs: CTAB, other (no acute respiratory distress) Cardiovascular: other (regularly irregular) Abdomen: soft, non-tender Extremities: other (back sores, healing slowly.) Neurological: no change, bedbound Internal Medicine Assmt/Plan - Assessment Assessment: Bipolar disorder Afib DM OA Overactive bladder HTN Anxiety Pressure Ulcers - Plan Plan: Continue to keep in Inpatient Psychiatric Unit. Continue to f/u with psych recs, pt's condition and behavior. Continue current treatments. Continue collaboration with consulting specialist, nursing team and interdisciplinary team. Fall Precaution. Nutritional Asmnt/Malnutr-PDOC - Dietary Evaluation Malnutrition Findings (Please click <Entered> for more info): Nutritional Asmnt/Malnutrition Start: 10/11/18 14: 22 Text: Status: Complete Freq: Protocol: Document 10/11/18 14:22 LCHENG (Rec: 10/11/18 14:31 [email or web address] [email or web address]) Nutritional Asmnt/Malnutrition Patient General Information Nutritional Screening High Risk Diagnosis psychosis Pertinent Medical Hx/Surgical Hx HTN, DM, asthma/COPD, arthritis, afib, knee and rt shoulder surger, csection Subjective Information Pt seen eating lunch in bed at time of visit. Food preference provided to RD. Pt asked for real sugar. Explained to pt that she is on [facility] diet and the benifits for diabetes. Pt stated her blood sugar is fine. Glucose 270 at admission noted. Pt appeared not interested in diabetic education. Per EMR, pt consumed 50% of breakfast today. Current Diet Order/ Nutrition Support [facility] Pertinent Medications vit C, colace, glucophage, protonix, senna, januvia Pertinent Labs 10/10 glucose 270 Nutritional Hx/Data Height 5 ft 6 in Height (Calculated Centimeters) 167.6 Current Weight (lbs) 250 lb Weight (Calculated Kilograms) 113.4 Weight (Calculated Grams) 899599.1 [place] Body Weight 130 Body Mass Index (BMI) 40.3 Weight Status Morbidly Obese GI Symptoms GI Symptoms None Last BM none Difficult in: None Skin Integrity/Comment: RT. knee surgery scar,redness to coccyx area mitul 15 Estimated Nutritional Goals BEE in Kcals: Adj wt of IBW Calories/Kcals/Kg 25-30 Kcals Calculated 3583-7159 Protein: Adj wt of IBW Protein g/k Protein Calculated 73 Fluid: ml 1825-2190ml (1ml/kcal) Nutritional Problem 1. Problem Problem altered nutrition related labs Etiology hyperglycemia Signs/Symptoms: gluocse 270 at admission Malnutrition Alert Is there a minimum of two criteria No selected? Query Text:Check all the applicable criteria. A minimum of two criteria are recommended for diagnosis of either severe or non-severe malnutrition. Malnutrition Related to Morbid Obesity Malnutrition related to morbid obesity No Intervention/Recommendation Comments 1. Continue with [facility] diet as ordered. Diet preference updated. 2. Monitor PO intake, wt, labs and skin integrity 3. F/U as low risk in 7 days Expected Outcomes/Goals Expected Outcomes/Goals 1. PO intake to meet at least 75% of nutritional needs. 2. Wt stability, skin to remain intact, labs to approach WNL.
[2018-11-08] MEDS: INSULIN LISPRO SLIDING SCALE 100 UNITS/ML UNIT SUBQ SCH ×4 (06:37→20:35)
[2018-11-08] MEDS: APAP/Oxycodone 5/325mg Tab PO PRN ×4 (08:58→22:50)
[2018-11-08] MEDS: Aspirin 81mg Chewable Tab PO SCH (08:58)
[2018-11-08] MEDS: Pantoprazole 40 mg EC Tab PO SCH (08:58)
[2018-11-08] MEDS: Multivitamin w/ Minerals Tab PO SCH (08:59)
--- NOTE | 2018-11-08 18:12 | Progress Notes ---
DATE: 11/08/2018 SUBJECTIVE: The patient in the hospital, noted to be irritable, demanding, noted to be reading the paper and stating that she is very depressed, wants to leave, oriented, verbally abusive towards staff, suspicious, compliant with medications, more cooperative in general versus when she first came here. Per Writing Manager' note, it is unclear where the patient is going to go. Efforts have been made for placement. I need to contact Writing Manager and see if any of the facilities will take her. Medications were noted. Fair sleep, fair appetite. The patient upset, angry. PLAN: We will continue to monitor. Medications were noted. We will attempt to confirm placement. JOB# [id number]
[2018-11-09] MEDS: INSULIN LISPRO SLIDING SCALE 100 UNITS/ML UNIT SUBQ SCH ×4 (06:32→21:23)
[2018-11-09] MEDS: APAP/Oxycodone 5/325mg Tab PO PRN ×4 (08:55→21:43)
[2018-11-09] MEDS: Aspirin 81mg Chewable Tab PO SCH (09:02)
[2018-11-09] MEDS: Multivitamin w/ Minerals Tab PO SCH (09:02)
[2018-11-09] MEDS: Pantoprazole 40 mg EC Tab PO SCH (09:03)
--- NOTE | 2018-11-09 14:38 | Internal Medicine Prog Note ---
Internal Medicine Subjective - Subjective Service Date: 11/09/18 Patient seen and examined:: with staff Patient is:: awake, verbal, interactive, in bed, talking, other (poor insight, demanding and in irritable mood.) Patient Complaints of:: other (very depressed and irrittable.) Per staff patient has:: no adverse event, no episodes of fall Internal Medicine Objective - Results Result Diagrams: 10/10/18 13:08 10/10/18 13:08 Recent Labs: Laboratory Last Values WBC 7.0 Th/cmm (4.8-10.8) 10/10/18 13:08 RBC 4.00 Mil/cmm (3.80-5.20) 10/10/18 13:08 Hgb 9.9 gm/dL (12-16) L 10/10/18 13:08 Hct 29.9 % (41.0-60) L 10/10/18 13:08 MCV 74.6 fl (81-100) L 10/10/18 13:08 MCH 24.6 pg (27.0-31.0) L 10/10/18 13:08 MCHC Differential 33.0 pg (28.0-36.0) 10/10/18 13:08 RDW 14.6 % (11.5-20.0) 10/10/18 13:08 Plt Count 273 Th/cmm (150-400) 10/10/18 13:08 MPV 6.4 fl 10/10/18 13:08 Neutrophils % 71.8 % (40.0-80.0) 10/10/18 13:08 Lymphocytes % 18.6 % (20.0-50.0) L 10/10/18 13:08 Monocytes % 7.6 % (2.0-10.0) 10/10/18 13:08 Eosinophils % 1.3 % (0.0-5.0) 10/10/18 13:08 Basophils % 0.7 % (0.0-2.0) 10/10/18 13:08 Sodium 137 mEq/L (136-145) 10/10/18 13:08 Potassium 3.9 mEq/L (3.5-5.1) 10/10/18 13:08 Chloride 104 mEq/L (98-107) 10/10/18 13:08 Carbon Dioxide 24.9 mEq/L (21.0-31.0) 10/10/18 13:08 Anion Gap 12.0 (7.0-16.0) 10/10/18 13:08 BUN 16 mg/dL (7-25) 10/10/18 13:08 Creatinine 1.0 mg/dL (0.6-1.2) 10/10/18 13:08 Est GFR ( Amer) > 60.0 ml/min (>90) 10/10/18 13:08 Est GFR (Non-Af Amer) 58.8 ml/min 10/10/18 13:08 BUN/Creatinine Ratio 16.0 10/10/18 13:08 Glucose 270 mg/dL (70-105) H 10/10/18 13:08 POC Glucose 154 MG/DL (70 - 105) H 11/08/18 19:30 Calcium 9.0 mg/dL (8.6-10.3) 10/10/18 13:08 Total Bilirubin 0.3 mg/dL (0.3-1.0) 10/10/18 13:08 AST 19 U/L (13-39) 10/10/18 13:08 ALT 17 U/L (7-52) 10/10/18 13:08 Alkaline Phosphatase 87 U/L (34-104) 10/10/18 13:08 Total Protein 6.3 gm/dL (6.0-8.3) 10/10/18 13:08 Albumin 3.7 gm/dL (3.7-5.3) 10/10/18 13:08 Globulin 2.6 gm/dL 10/10/18 13:08 Albumin/Globulin Ratio 1.4 (1.0-1.8) 10/10/18 13:08 Urine Source CLEAN C 10/10/18 13:34 Urine Color YELLOW 10/10/18 13:34 Urine Clarity CLEAR (CLEAR) 10/10/18 13:34 Urine pH 5.5 (4.6 - 8.0) 10/10/18 13:34 Ur Specific [place] 1.025 (1.005-1.030) 10/10/18 13:34 Urine Protein NEGATIVE mg/dL (NEGATIVE) 10/10/18 13:34 Urine Glucose (UA) NEGATIVE mg/dL (NEGATIVE) 10/10/18 13:34 Urine Ketones NEGATIVE mg/dL (NEGATIVE) 10/10/18 13:34 Urine Blood NEGATIVE (NEGATIVE) 10/10/18 13:34 Urine Nitrate NEGATIVE (NEGATIVE) 10/10/18 13:34 Urine Bilirubin NEGATIVE (NEGATIVE) 10/10/18 13:34 Urine Urobilinogen 0.2 E.U./dL (0.2 - 1.0) 10/10/18 13:34 Ur Leukocyte Esterase NEGATIVE (NEGATIVE) 10/10/18 13:34 Urine RBC 0-2 /hpf (0-5) 10/10/18 13:34 Urine WBC 2-5 /hpf (0-5) 10/10/18 13:34 Ur Epithelial Cells MODERATE /lpf (FEW) 10/10/18 13:34 Urine Bacteria FEW /hpf (NONE SEEN) 10/10/18 13:34 - Physical Exam Vitals and I&O: Vital Signs Temp 97.9 F 11/09/18 14:02 Pulse 52 11/09/18 14:02 Resp 20 11/09/18 14:02 BP 131/66 11/09/18 14:02 Pulse Ox 96 11/09/18 14:02 Intake & Output 11/08/18 11/09/18 11/09/18 18:59 06:59 18:59 Intake Total 2400 720 Output Total 2 Balance 2400 718 Intake: Oral 2400 720 Output: Urine/Stool Mix 2 Other: # Voids 5 1 # Bowel Movements 0 Active Medications: Current Medications Acetaminophen (Tylenol) 650 mg PO Q4HR PRN PRN Reason: Mild Pain / Temp above 100 Stop: 12/09/18 19:59 Amiodarone HCl (Cordarone) 200 mg PO BID [facility] Stop: 12/10/18 08:59 Last Admin: 11/09/18 08:59 Dose: 200 mg Amlodipine Besylate (Norvasc) 10 mg PO DAILY [facility] Stop: 12/10/18 08:59 Last Admin: 11/09/18 08:56 Dose: 10 mg Ascorbic Acid (Vitamin C) 500 mg PO DAILY [facility] Stop: 12/10/18 08:59 Last Admin: 11/09/18 08:58 Dose: 500 mg Aspirin (Aspirin Chewable) 81 mg PO DAILY [facility] Stop: 12/10/18 08:59 Last Admin: 11/09/18 09:02 Dose: 81 mg Dextrose (D50w) 50 ml IVP PRN PRN PRN Reason: BS below 70&not tolerate po Stop: 12/10/18 10:24 Dextrose (Glutose 40%) 18.75 gm PO PRN PRN PRN Reason: BS below 70 & tolerate po Stop: 12/10/18 10:24 Digoxin (Lanoxin) 0.25 mg PO DAILY [facility] Stop: 12/10/18 08:59 Last Admin: 11/09/18 09:06 Dose: 0.25 mg Docusate Sodium (Colace) 100 mg PO BID [facility] Stop: 12/10/18 08:59 Last Admin: 11/09/18 09:02 Dose: 100 mg Escitalopram Oxalate (Lexapro) 20 mg PO DAILY [facility]; Protocol Stop: 12/10/18 08:59 Last Admin: 11/09/18 09:02 Dose: 20 mg Glucagon (Glucagen) 1 mg IM PRN PRN PRN Reason: BS below 70&dextrose ineffecti Stop: 12/10/18 10:24 Insulin Human Lispro (Humalog Insulin Sliding Scale) 0 units SUBQ ACHS [facility]; Protocol Stop: 12/10/18 11:29 Last Admin: 11/09/18 12:02 Dose: 2 units Lorazepam (Ativan) 0.5 mg PO Q4H PRN; Protocol PRN Reason: Anxiety Stop: 12/09/18 19:59 Metformin HCl (Glucophage) 500 mg PO BIDWM [facility] Stop: 12/10/18 07:59 Last Admin: 11/09/18 08:59 Dose: 500 mg Oxybutynin Chloride (Ditropan) 5 mg PO DAILY [facility] Stop: 12/10/18 08:59 Last Admin: 11/09/18 09:03 Dose: 5 mg Oxycodone/Acetaminophen (Percocet 5/325mg Oral Tab) 1 tab PO Q4H PRN PRN Reason: Severe Pain Stop: 12/31/18 16:54 Last Admin: 11/09/18 13:20 Dose: 1 tab Pantoprazole Sodium (Protonix) 40 mg PO DAILY [facility] Stop: 12/22/18 08:59 Last Admin: 11/09/18 09:03 Dose: 40 mg Quetiapine Fumarate 100 mg/ (Quetiapine Fumarate 50 mg) 150 mg PO HS [facility] Stop: 12/20/18 20:59 Last Admin: 11/08/18 21:21 Dose: 150 mg Rivaroxaban (Xarelto) 20 mg PO DAILY [facility] Stop: 01/01/19 08:59 Last Admin: 11/09/18 09:12 Dose: 20 mg Senna (Senna) 8.6 mg PO DAILY [facility] Stop: 12/10/18 08:59 Last Admin: 11/09/18 09:02 Dose: 8.6 mg Sitagliptin Phosphate (Januvia) 100 mg PO QDAC [facility] Stop: 12/10/18 07:29 Last Admin: 11/09/18 06:32 Dose: Not Given Zolpidem Tartrate (Ambien) 5 mg PO HS PRN PRN Reason: Insomnia Stop: 12/09/18 18:50 Last Admin: 11/08/18 21:21 Dose: 5 mg Physical Exam: 68 y/o patient is gravely disabled and continues to refuse care at times. Patient continues to have poor insight, has low motivation, verbally depressed has poor sleep patterns. She is very irritable and in depressed mood, states she wants to leave. Patient will continue to be treated and monitored. General: alert, obese HEENT: NC/AT, PERRLA Neck: Supple, No JVD Lungs: CTAB, other (no acute respiratory distress) Cardiovascular: other (regularly irregular) Abdomen: soft, non-tender Extremities: other (back sores, healing slowly.) Neurological: no change, bedbound Internal Medicine Assmt/Plan - Assessment Assessment: Refusing Care 5150 Hold. Diabetes. Afib. Bipolar disorder. Depressed mood. Irritated. Anxiety. Copd. Hypertension. Overactive bladder. Osteoarthritis. Pressure sores. - Plan Plan: Continuation of care. Psych followup/management. Monitor Labs. Continue present meds as directed. Monitor Diet/Nutritional support. Local skin care and wound care. Pain Management. Physical therapy. Occupational therapy. Safety precaution. Supportive care. Fall precaution, frequent nursing rounds, and as needed restraints to prevent fall. Continue collaborating with consulting specialists, case management and nursing team. Will Monitor patient and continue present care management. Nutritional Asmnt/Malnutr-PDOC - Dietary Evaluation Malnutrition Findings (Please click <Entered> for more info): Nutritional Asmnt/Malnutrition Start: 10/11/18 14: 22 Text: Status: Complete Freq: Protocol: Document 10/11/18 14:22 LCHENG (Rec: 10/11/18 14:31 LCHENG [email or web address]) Nutritional Asmnt/Malnutrition Patient General Information Nutritional Screening High Risk Diagnosis psychosis Pertinent Medical Hx/Surgical Hx HTN, DM, asthma/COPD, arthritis, afib, knee and rt shoulder surger, csection Subjective Information Pt seen eating lunch in bed at time of visit. Food preference provided to RD. Pt asked for real sugar. Explained to pt that she is on [facility] diet and the benifits for diabetes. Pt stated her blood sugar is fine. Glucose 270 at admission noted. Pt appeared not interested in diabetic education. Per EMR, pt consumed 50% of breakfast today. Current Diet Order/ Nutrition Support [facility] Pertinent Medications vit C, colace, glucophage, protonix, senna, januvia Pertinent Labs 10/10 glucose 270 Nutritional Hx/Data Height 1.68 m Height (Calculated Centimeters) 167.6 Current Weight (lbs) 113.398 kg Weight (Calculated Kilograms) 113.4 Weight (Calculated Grams) 981390.1 [place] Body Weight 130 Body Mass Index (BMI) 40.3 Weight Status Morbidly Obese GI Symptoms GI Symptoms None Last BM none Difficult in: None Skin Integrity/Comment: RT. knee surgery scar,redness to coccyx area mitul 15 Estimated Nutritional Goals BEE in Kcals: Adj wt of IBW Calories/Kcals/Kg 25-30 Kcals Calculated 8405-2307 Protein: Adj wt of IBW Protein g/k Protein Calculated 73 Fluid: ml 1825-2190ml (1ml/kcal) Nutritional Problem 1. Problem Problem altered nutrition related labs Etiology hyperglycemia Signs/Symptoms: gluocse 270 at admission Malnutrition Alert Is there a minimum of two criteria No selected? Query Text:Check all the applicable criteria. A minimum of two criteria are recommended for diagnosis of either severe or non-severe malnutrition. Malnutrition Related to Morbid Obesity Malnutrition related to morbid obesity No Intervention/Recommendation Comments 1. Continue with [facility] diet as ordered. Diet preference updated. 2. Monitor PO intake, wt, labs and skin integrity 3. F/U as low risk in 7 days Expected Outcomes/Goals Expected Outcomes/Goals 1. PO intake to meet at least 75% of nutritional needs. 2. Wt stability, skin to remain intact, labs to approach WNL.
--- NOTE | 2018-11-09 19:33 | Progress Notes ---
DATE: 11/09/2018 SUBJECTIVE: The patient in the hospital, demanding upset, demanding to leave. We do not really know where to send her. We were trying to work on placement, but as of yet to no avail. Mostly quiet, withdrawn, somewhat suspicious of staff, but generally taking her medications and minimally participant and mostly staying through herself. Medications were noted. Ongoing concerns in regards to grave disability. Concerns about her ability to care for her basic needs. PLAN: We will continue to monitor her. Continue Heraclio Pineda. JOB# [id number]
[2018-11-10] MEDS: APAP/Oxycodone 5/325mg Tab PO PRN ×5 (01:50→21:51)
[2018-11-10] MEDS: INSULIN LISPRO SLIDING SCALE 100 UNITS/ML UNIT SUBQ SCH ×4 (06:35→21:52)
[2018-11-10] MEDS: Aspirin 81mg Chewable Tab PO SCH (09:06)
[2018-11-10] MEDS: Pantoprazole 40 mg EC Tab PO SCH (09:07)
[2018-11-10] MEDS: Multivitamin w/ Minerals Tab PO SCH (09:11)
--- NOTE | 2018-11-10 19:54 | Internal Medicine Prog Note ---
Internal Medicine Subjective - Subjective Service Date: 11/10/18 Patient is:: awake, verbal, interactive, in bed, talking, other (poor insight, demanding and in irritable mood.) Patient Complaints of:: other (very depressed and irrittable.) Per staff patient has:: no adverse event, no episodes of fall Internal Medicine Objective - Results Result Diagrams: 10/10/18 13:08 10/10/18 13:08 Recent Labs: Laboratory Last Values WBC 7.0 Th/cmm (4.8-10.8) 10/10/18 13:08 RBC 4.00 Mil/cmm (3.80-5.20) 10/10/18 13:08 Hgb 9.9 gm/dL (12-16) L 10/10/18 13:08 Hct 29.9 % (41.0-60) L 10/10/18 13:08 MCV 74.6 fl (81-100) L 10/10/18 13:08 MCH 24.6 pg (27.0-31.0) L 10/10/18 13:08 MCHC Differential 33.0 pg (28.0-36.0) 10/10/18 13:08 RDW 14.6 % (11.5-20.0) 10/10/18 13:08 Plt Count 273 Th/cmm (150-400) 10/10/18 13:08 MPV 6.4 fl 10/10/18 13:08 Neutrophils % 71.8 % (40.0-80.0) 10/10/18 13:08 Lymphocytes % 18.6 % (20.0-50.0) L 10/10/18 13:08 Monocytes % 7.6 % (2.0-10.0) 10/10/18 13:08 Eosinophils % 1.3 % (0.0-5.0) 10/10/18 13:08 Basophils % 0.7 % (0.0-2.0) 10/10/18 13:08 Sodium 137 mEq/L (136-145) 10/10/18 13:08 Potassium 3.9 mEq/L (3.5-5.1) 10/10/18 13:08 Chloride 104 mEq/L (98-107) 10/10/18 13:08 Carbon Dioxide 24.9 mEq/L (21.0-31.0) 10/10/18 13:08 Anion Gap 12.0 (7.0-16.0) 10/10/18 13:08 BUN 16 mg/dL (7-25) 10/10/18 13:08 Creatinine 1.0 mg/dL (0.6-1.2) 10/10/18 13:08 Est GFR ( Amer) > 60.0 ml/min (>90) 10/10/18 13:08 Est GFR (Non-Af Amer) 58.8 ml/min 10/10/18 13:08 BUN/Creatinine Ratio 16.0 10/10/18 13:08 Glucose 270 mg/dL (70-105) H 10/10/18 13:08 POC Glucose 93 MG/DL (70 - 105) 11/10/18 16:22 Calcium 9.0 mg/dL (8.6-10.3) 10/10/18 13:08 Total Bilirubin 0.3 mg/dL (0.3-1.0) 10/10/18 13:08 AST 19 U/L (13-39) 10/10/18 13:08 ALT 17 U/L (7-52) 10/10/18 13:08 Alkaline Phosphatase 87 U/L (34-104) 10/10/18 13:08 Total Protein 6.3 gm/dL (6.0-8.3) 10/10/18 13:08 Albumin 3.7 gm/dL (3.7-5.3) 10/10/18 13:08 Globulin 2.6 gm/dL 10/10/18 13:08 Albumin/Globulin Ratio 1.4 (1.0-1.8) 10/10/18 13:08 Urine Source CLEAN C 10/10/18 13:34 Urine Color YELLOW 10/10/18 13:34 Urine Clarity CLEAR (CLEAR) 10/10/18 13:34 Urine pH 5.5 (4.6 - 8.0) 10/10/18 13:34 Ur Specific [place] 1.025 (1.005-1.030) 10/10/18 13:34 Urine Protein NEGATIVE mg/dL (NEGATIVE) 10/10/18 13:34 Urine Glucose (UA) NEGATIVE mg/dL (NEGATIVE) 10/10/18 13:34 Urine Ketones NEGATIVE mg/dL (NEGATIVE) 10/10/18 13:34 Urine Blood NEGATIVE (NEGATIVE) 10/10/18 13:34 Urine Nitrate NEGATIVE (NEGATIVE) 10/10/18 13:34 Urine Bilirubin NEGATIVE (NEGATIVE) 10/10/18 13:34 Urine Urobilinogen 0.2 E.U./dL (0.2 - 1.0) 10/10/18 13:34 Ur Leukocyte Esterase NEGATIVE (NEGATIVE) 10/10/18 13:34 Urine RBC 0-2 /hpf (0-5) 10/10/18 13:34 Urine WBC 2-5 /hpf (0-5) 10/10/18 13:34 Ur Epithelial Cells MODERATE /lpf (FEW) 10/10/18 13:34 Urine Bacteria FEW /hpf (NONE SEEN) 10/10/18 13:34 - Physical Exam Vitals and I&O: Vital Signs Temp 97.9 F 11/10/18 15:32 Pulse 58 11/10/18 17:14 Resp 18 11/10/18 15:32 BP 138/69 11/10/18 15:32 Pulse Ox 99 11/10/18 15:32 Intake & Output 11/10/18 11/10/18 11/11/18 06:59 18:59 06:59 Intake Total 360 Balance 360 Intake: Oral 360 Other: # Voids 1 # Bowel Movements 1 Stool Characteristics Formed Active Medications: Current Medications Acetaminophen (Tylenol) 650 mg PO Q4HR PRN PRN Reason: Mild Pain / Temp above 100 Stop: 12/09/18 19:59 Amiodarone HCl (Cordarone) 200 mg PO BID [facility] Stop: 12/10/18 08:59 Last Admin: 11/10/18 17:14 Dose: Not Given Amlodipine Besylate (Norvasc) 10 mg PO DAILY [facility] Stop: 12/10/18 08:59 Last Admin: 11/10/18 09:10 Dose: 10 mg Ascorbic Acid (Vitamin C) 500 mg PO DAILY [facility] Stop: 12/10/18 08:59 Last Admin: 11/10/18 09:08 Dose: 500 mg Aspirin (Aspirin Chewable) 81 mg PO DAILY [facility] Stop: 12/10/18 08:59 Last Admin: 11/10/18 09:06 Dose: 81 mg Dextrose (D50w) 50 ml IVP PRN PRN PRN Reason: BS below 70&not tolerate po Stop: 12/10/18 10:24 Dextrose (Glutose 40%) 18.75 gm PO PRN PRN PRN Reason: BS below 70 & tolerate po Stop: 12/10/18 10:24 Digoxin (Lanoxin) 0.25 mg PO DAILY [facility] Stop: 12/10/18 08:59 Last Admin: 11/10/18 09:11 Dose: Not Given Docusate Sodium (Colace) 100 mg PO BID [facility] Stop: 12/10/18 08:59 Last Admin: 11/10/18 17:30 Dose: 100 mg Escitalopram Oxalate (Lexapro) 20 mg PO DAILY [facility]; Protocol Stop: 12/10/18 08:59 Last Admin: 11/10/18 09:08 Dose: 20 mg Glucagon (Glucagen) 1 mg IM PRN PRN PRN Reason: BS below 70&dextrose ineffecti Stop: 12/10/18 10:24 Insulin Human Lispro (Humalog Insulin Sliding Scale) 0 units SUBQ ACHS [facility]; Protocol Stop: 12/10/18 11:29 Last Admin: 11/10/18 16:25 Dose: Not Given Lorazepam (Ativan) 0.5 mg PO Q4H PRN; Protocol PRN Reason: Anxiety Stop: 12/09/18 19:59 Metformin HCl (Glucophage) 500 mg PO BIDWM [facility] Stop: 12/10/18 07:59 Last Admin: 11/10/18 17:30 Dose: 500 mg Oxybutynin Chloride (Ditropan) 5 mg PO DAILY [facility] Stop: 12/10/18 08:59 Last Admin: 11/10/18 09:09 Dose: 5 mg Oxycodone/Acetaminophen (Percocet 5/325mg Oral Tab) 1 tab PO Q4H PRN PRN Reason: Severe Pain Stop: 12/31/18 16:54 Last Admin: 11/10/18 18:13 Dose: 1 tab Pantoprazole Sodium (Protonix) 40 mg PO DAILY [facility] Stop: 12/22/18 08:59 Last Admin: 11/10/18 09:07 Dose: 40 mg Quetiapine Fumarate 100 mg/ (Quetiapine Fumarate 50 mg) 150 mg PO HS [facility] Stop: 12/20/18 20:59 Last Admin: 11/09/18 21:22 Dose: 150 mg Rivaroxaban (Xarelto) 20 mg PO DAILY [facility] Stop: 01/01/19 08:59 Last Admin: 11/10/18 09:06 Dose: 20 mg Senna (Senna) 8.6 mg PO DAILY [facility] Stop: 12/10/18 08:59 Last Admin: 11/10/18 09:08 Dose: 8.6 mg Sitagliptin Phosphate (Januvia) 100 mg PO QDAC [facility] Stop: 12/10/18 07:29 Last Admin: 11/10/18 06:39 Dose: 100 mg Zolpidem Tartrate (Ambien) 5 mg PO HS PRN PRN Reason: Insomnia Stop: 12/09/18 18:50 Last Admin: 11/08/18 21:21 Dose: 5 mg General: alert, obese HEENT: NC/AT, PERRLA Neck: Supple, No JVD Lungs: CTAB, other (no acute respiratory distress) Cardiovascular: other (regularly irregular) Abdomen: soft, non-tender Extremities: other (back sores, healing slowly.) Neurological: no change, bedbound Internal Medicine Assmt/Plan - Assessment Assessment: Refusing Care 5150 Hold. Diabetes. Afib. Bipolar disorder. Depressed mood. Anxiety. Copd. Hypertension. Osteoarthritis. Pressure sores. - Plan Plan: fall precautions cpm Nutritional Asmnt/Malnutr-PDOC - Dietary Evaluation Malnutrition Findings (Please click <Entered> for more info): Nutritional Asmnt/Malnutrition Start: 10/11/18 14: 22 Text: Status: Complete Freq: Protocol: Document 10/11/18 14:22 LCHENG (Rec: 10/11/18 14:31 [email or web address] [email or web address]) Nutritional Asmnt/Malnutrition Patient General Information Nutritional Screening High Risk Diagnosis psychosis Pertinent Medical Hx/Surgical Hx HTN, DM, asthma/COPD, arthritis, afib, knee and rt shoulder surger, csection Subjective Information Pt seen eating lunch in bed at time of visit. Food preference provided to RD. Pt asked for real sugar. Explained to pt that she is on [facility] diet and the benifits for diabetes. Pt stated her blood sugar is fine. Glucose 270 at admission noted. Pt appeared not interested in diabetic education. Per EMR, pt consumed 50% of breakfast today. Current Diet Order/ Nutrition Support [facility] Pertinent Medications vit C, colace, glucophage, protonix, senna, januvia Pertinent Labs 10/10 glucose 270 Nutritional Hx/Data Height 5 ft 6 in Height (Calculated Centimeters) 167.6 Current Weight (lbs) 250 lb Weight (Calculated Kilograms) 113.4 Weight (Calculated Grams) 621505.1 [place] Body Weight 130 Body Mass Index (BMI) 40.3 Weight Status Morbidly Obese GI Symptoms GI Symptoms None Last BM none Difficult in: None Skin Integrity/Comment: RT. knee surgery scar,redness to coccyx area mitul 15 Estimated Nutritional Goals BEE in Kcals: Adj wt of IBW Calories/Kcals/Kg 25-30 Kcals Calculated 4590-8915 Protein: Adj wt of IBW Protein g/k Protein Calculated 73 Fluid: ml 1825-2190ml (1ml/kcal) Nutritional Problem 1. Problem Problem altered nutrition related labs Etiology hyperglycemia Signs/Symptoms: gluocse 270 at admission Malnutrition Alert Is there a minimum of two criteria No selected? Query Text:Check all the applicable criteria. A minimum of two criteria are recommended for diagnosis of either severe or non-severe malnutrition. Malnutrition Related to Morbid Obesity Malnutrition related to morbid obesity No Intervention/Recommendation Comments 1. Continue with [facility] diet as ordered. Diet preference updated. 2. Monitor PO intake, wt, labs and skin integrity 3. F/U as low risk in 7 days Expected Outcomes/Goals Expected Outcomes/Goals 1. PO intake to meet at least 75% of nutritional needs. 2. Wt stability, skin to remain intact, labs to approach WNL.
--- NOTE | 2018-11-11 02:59 | Progress Notes ---
DATE: SUBJECTIVE: Chart was reviewed and the patient interviewed. Also discussed the patient's condition with the staff and reviewed records and labs. The patient is still anxious and is still in a depressed mood. The patient also is still unable to come to an agreement with wrapper caser in regard to discharge plans. She also is demanding and is still depressed. Otherwise, the patient is still feeling hopeless. ASSESSMENT: The patient is still argumentative and is still in irritable mood. TREATMENT PLAN: We will continue to monitor her behavior and condition closely. Also, we will continue working on discharge plans and on her irritability and will continue to follow up closely. JOB# [id number]
[2018-11-11] MEDS: INSULIN LISPRO SLIDING SCALE 100 UNITS/ML UNIT SUBQ SCH ×4 (06:34→20:59)
[2018-11-11] MEDS: Aspirin 81mg Chewable Tab PO SCH (08:46)
[2018-11-11] MEDS: Multivitamin w/ Minerals Tab PO SCH (08:47)
[2018-11-11] MEDS: Pantoprazole 40 mg EC Tab PO SCH (08:48)
[2018-11-11] MEDS: APAP/Oxycodone 5/325mg Tab PO PRN ×4 (08:49→21:38)
--- NOTE | 2018-11-11 14:18 | Internal Medicine Prog Note ---
Internal Medicine Subjective - Subjective Service Date: 11/11/18 Patient is:: awake, verbal, interactive, in bed, talking, other (poor insight, demanding and in irritable mood.) Patient Complaints of:: other (very depressed and irrittable.) Per staff patient has:: no adverse event, no episodes of fall Internal Medicine Objective - Results Result Diagrams: 10/10/18 13:08 10/10/18 13:08 Recent Labs: Laboratory Last Values WBC 7.0 Th/cmm (4.8-10.8) 10/10/18 13:08 RBC 4.00 Mil/cmm (3.80-5.20) 10/10/18 13:08 Hgb 9.9 gm/dL (12-16) L 10/10/18 13:08 Hct 29.9 % (41.0-60) L 10/10/18 13:08 MCV 74.6 fl (81-100) L 10/10/18 13:08 MCH 24.6 pg (27.0-31.0) L 10/10/18 13:08 MCHC Differential 33.0 pg (28.0-36.0) 10/10/18 13:08 RDW 14.6 % (11.5-20.0) 10/10/18 13:08 Plt Count 273 Th/cmm (150-400) 10/10/18 13:08 MPV 6.4 fl 10/10/18 13:08 Neutrophils % 71.8 % (40.0-80.0) 10/10/18 13:08 Lymphocytes % 18.6 % (20.0-50.0) L 10/10/18 13:08 Monocytes % 7.6 % (2.0-10.0) 10/10/18 13:08 Eosinophils % 1.3 % (0.0-5.0) 10/10/18 13:08 Basophils % 0.7 % (0.0-2.0) 10/10/18 13:08 Sodium 137 mEq/L (136-145) 10/10/18 13:08 Potassium 3.9 mEq/L (3.5-5.1) 10/10/18 13:08 Chloride 104 mEq/L (98-107) 10/10/18 13:08 Carbon Dioxide 24.9 mEq/L (21.0-31.0) 10/10/18 13:08 Anion Gap 12.0 (7.0-16.0) 10/10/18 13:08 BUN 16 mg/dL (7-25) 10/10/18 13:08 Creatinine 1.0 mg/dL (0.6-1.2) 10/10/18 13:08 Est GFR ( Amer) > 60.0 ml/min (>90) 10/10/18 13:08 Est GFR (Non-Af Amer) 58.8 ml/min 10/10/18 13:08 BUN/Creatinine Ratio 16.0 10/10/18 13:08 Glucose 270 mg/dL (70-105) H 10/10/18 13:08 POC Glucose 162 MG/DL (70 - 105) H 11/11/18 12:03 Calcium 9.0 mg/dL (8.6-10.3) 10/10/18 13:08 Total Bilirubin 0.3 mg/dL (0.3-1.0) 10/10/18 13:08 AST 19 U/L (13-39) 10/10/18 13:08 ALT 17 U/L (7-52) 10/10/18 13:08 Alkaline Phosphatase 87 U/L (34-104) 10/10/18 13:08 Total Protein 6.3 gm/dL (6.0-8.3) 10/10/18 13:08 Albumin 3.7 gm/dL (3.7-5.3) 10/10/18 13:08 Globulin 2.6 gm/dL 10/10/18 13:08 Albumin/Globulin Ratio 1.4 (1.0-1.8) 10/10/18 13:08 Urine Source CLEAN C 10/10/18 13:34 Urine Color YELLOW 10/10/18 13:34 Urine Clarity CLEAR (CLEAR) 10/10/18 13:34 Urine pH 5.5 (4.6 - 8.0) 10/10/18 13:34 Ur Specific [place] 1.025 (1.005-1.030) 10/10/18 13:34 Urine Protein NEGATIVE mg/dL (NEGATIVE) 10/10/18 13:34 Urine Glucose (UA) NEGATIVE mg/dL (NEGATIVE) 10/10/18 13:34 Urine Ketones NEGATIVE mg/dL (NEGATIVE) 10/10/18 13:34 Urine Blood NEGATIVE (NEGATIVE) 10/10/18 13:34 Urine Nitrate NEGATIVE (NEGATIVE) 10/10/18 13:34 Urine Bilirubin NEGATIVE (NEGATIVE) 10/10/18 13:34 Urine Urobilinogen 0.2 E.U./dL (0.2 - 1.0) 10/10/18 13:34 Ur Leukocyte Esterase NEGATIVE (NEGATIVE) 10/10/18 13:34 Urine RBC 0-2 /hpf (0-5) 10/10/18 13:34 Urine WBC 2-5 /hpf (0-5) 10/10/18 13:34 Ur Epithelial Cells MODERATE /lpf (FEW) 10/10/18 13:34 Urine Bacteria FEW /hpf (NONE SEEN) 10/10/18 13:34 - Physical Exam Vitals and I&O: Vital Signs Temp 98.4 F 11/10/18 20:00 Pulse 70 11/11/18 08:46 Resp 18 11/10/18 20:00 BP 133/70 11/11/18 08:46 Pulse Ox 95 11/10/18 20:00 Intake & Output 11/10/18 11/11/18 11/11/18 18:59 06:59 18:59 Intake Total 120 Balance 120 Intake: Oral 120 Other: # Voids 3 Stool Characteristics Formed Formed Active Medications: Current Medications Acetaminophen (Tylenol) 650 mg PO Q4HR PRN PRN Reason: Mild Pain / Temp above 100 Stop: 12/09/18 19:59 Amiodarone HCl (Cordarone) 200 mg PO BID [facility] Stop: 12/10/18 08:59 Last Admin: 11/11/18 08:46 Dose: 200 mg Amlodipine Besylate (Norvasc) 10 mg PO DAILY [facility] Stop: 12/10/18 08:59 Last Admin: 11/11/18 08:46 Dose: 10 mg Ascorbic Acid (Vitamin C) 500 mg PO DAILY [facility] Stop: 12/10/18 08:59 Last Admin: 11/11/18 08:47 Dose: 500 mg Aspirin (Aspirin Chewable) 81 mg PO DAILY [facility] Stop: 12/10/18 08:59 Last Admin: 11/11/18 08:46 Dose: 81 mg Dextrose (D50w) 50 ml IVP PRN PRN PRN Reason: BS below 70&not tolerate po Stop: 12/10/18 10:24 Dextrose (Glutose 40%) 18.75 gm PO PRN PRN PRN Reason: BS below 70 & tolerate po Stop: 12/10/18 10:24 Digoxin (Lanoxin) 0.25 mg PO DAILY [facility] Stop: 12/10/18 08:59 Last Admin: 11/11/18 08:48 Dose: 0.25 mg Docusate Sodium (Colace) 100 mg PO BID [facility] Stop: 12/10/18 08:59 Last Admin: 11/11/18 09:31 Dose: Not Given Escitalopram Oxalate (Lexapro) 20 mg PO DAILY [facility]; Protocol Stop: 12/10/18 08:59 Last Admin: 11/11/18 08:47 Dose: 20 mg Glucagon (Glucagen) 1 mg IM PRN PRN PRN Reason: BS below 70&dextrose ineffecti Stop: 12/10/18 10:24 Insulin Human Lispro (Humalog Insulin Sliding Scale) 0 units SUBQ ACHS [facility]; Protocol Stop: 12/10/18 11:29 Last Admin: 11/11/18 12:09 Dose: 2 units Lorazepam (Ativan) 0.5 mg PO Q4H PRN; Protocol PRN Reason: Anxiety Stop: 12/09/18 19:59 Metformin HCl (Glucophage) 500 mg PO BIDWM [facility] Stop: 12/10/18 07:59 Last Admin: 11/11/18 08:47 Dose: 500 mg Oxybutynin Chloride (Ditropan) 5 mg PO DAILY [facility] Stop: 12/10/18 08:59 Last Admin: 11/11/18 08:47 Dose: 5 mg Oxycodone/Acetaminophen (Percocet 5/325mg Oral Tab) 1 tab PO Q4H PRN PRN Reason: Severe Pain Stop: 12/31/18 16:54 Last Admin: 11/11/18 13:09 Dose: 1 tab Pantoprazole Sodium (Protonix) 40 mg PO DAILY [facility] Stop: 12/22/18 08:59 Last Admin: 11/11/18 08:48 Dose: 40 mg Quetiapine Fumarate 100 mg/ (Quetiapine Fumarate 50 mg) 150 mg PO HS [facility] Stop: 12/20/18 20:59 Last Admin: 11/10/18 21:53 Dose: 150 mg Rivaroxaban (Xarelto) 20 mg PO DAILY [facility] Stop: 01/01/19 08:59 Last Admin: 11/11/18 08:48 Dose: 20 mg Senna (Senna) 8.6 mg PO DAILY [facility] Stop: 12/10/18 08:59 Last Admin: 11/11/18 08:48 Dose: 8.6 mg Sitagliptin Phosphate (Januvia) 100 mg PO QDAC [facility] Stop: 12/10/18 07:29 Last Admin: 11/11/18 06:35 Dose: Not Given Zolpidem Tartrate (Ambien) 5 mg PO HS PRN PRN Reason: Insomnia Stop: 12/09/18 18:50 Last Admin: 11/10/18 21:53 Dose: 5 mg General: alert, obese HEENT: NC/AT, PERRLA Neck: Supple, No JVD Lungs: CTAB, other (no acute respiratory distress) Cardiovascular: other (regularly irregular) Abdomen: soft, non-tender Extremities: other (back sores, healing slowly.) Neurological: no change, bedbound Internal Medicine Assmt/Plan - Assessment Assessment: Refusing Care 5150 Hold. Diabetes. Afib. Bipolar disorder. Depressed mood. Anxiety. Copd. Hypertension. Osteoarthritis. Pressure sores. - Plan Plan: fall precautions cpm Nutritional Asmnt/Malnutr-PDOC - Dietary Evaluation Malnutrition Findings (Please click <Entered> for more info): Nutritional Asmnt/Malnutrition Start: 10/11/18 14: 22 Text: Status: Complete Freq: Protocol: Document 10/11/18 14:22 LCHENG (Rec: 10/11/18 14:31 LCHAILEYG [email or web address]) Nutritional Asmnt/Malnutrition Patient General Information Nutritional Screening High Risk Diagnosis psychosis Pertinent Medical Hx/Surgical Hx HTN, DM, asthma/COPD, arthritis, afib, knee and rt shoulder surger, csection Subjective Information Pt seen eating lunch in bed at time of visit. Food preference provided to RD. Pt asked for real sugar. Explained to pt that she is on [facility] diet and the benifits for diabetes. Pt stated her blood sugar is fine. Glucose 270 at admission noted. Pt appeared not interested in diabetic education. Per EMR, pt consumed 50% of breakfast today. Current Diet Order/ Nutrition Support [facility] Pertinent Medications vit C, colace, glucophage, protonix, senna, januvia Pertinent Labs 10/10 glucose 270 Nutritional Hx/Data Height 5 ft 6 in Height (Calculated Centimeters) 167.6 Current Weight (lbs) 250 lb Weight (Calculated Kilograms) 113.4 Weight (Calculated Grams) 727392.1 [place] Body Weight 130 Body Mass Index (BMI) 40.3 Weight Status Morbidly Obese GI Symptoms GI Symptoms None Last BM none Difficult in: None Skin Integrity/Comment: RT. knee surgery scar,redness to coccyx area mitul 15 Estimated Nutritional Goals BEE in Kcals: Adj wt of IBW Calories/Kcals/Kg 25-30 Kcals Calculated 5826-7576 Protein: Adj wt of IBW Protein g/k Protein Calculated 73 Fluid: ml 1825-2190ml (1ml/kcal) Nutritional Problem 1. Problem Problem altered nutrition related labs Etiology hyperglycemia Signs/Symptoms: gluocse 270 at admission Malnutrition Alert Is there a minimum of two criteria No selected? Query Text:Check all the applicable criteria. A minimum of two criteria are recommended for diagnosis of either severe or non-severe malnutrition. Malnutrition Related to Morbid Obesity Malnutrition related to morbid obesity No Intervention/Recommendation Comments 1. Continue with [facility] diet as ordered. Diet preference updated. 2. Monitor PO intake, wt, labs and skin integrity 3. F/U as low risk in 7 days Expected Outcomes/Goals Expected Outcomes/Goals 1. PO intake to meet at least 75% of nutritional needs. 2. Wt stability, skin to remain intact, labs to approach WNL.
--- NOTE | 2018-11-11 20:35 | Progress Notes ---
DATE: CHIEF COMPLAINT: "I've been here for 32 days." SUBJECTIVE: The patient is still anxious and she is still depressed for her length of stay. She is more cooperative and she seems to be less irritable and less agitated. She also has been interacting more. The patient denies any intention to harm herself or others. The patient also is less suspicious and less paranoid. Otherwise, the patient is compliant with taking her medications with no side effects of medications. ASSESSMENT: The patient is still depressed. TREATMENT PLAN: We will continue monitoring her behavior closely. Also, pillowcase sewer was informing me that [facility] will take care for continued physical therapy, but I heard today that the [facility] is refusing to take her and this is the third time I was informed of the same story. We will discuss with pillowcase sewer more solid discharge plans for the patient and at the same time, we will continue to follow up closely. JOB# [id number]
[2018-11-12] MEDS: INSULIN LISPRO SLIDING SCALE 100 UNITS/ML UNIT SUBQ SCH ×4 (06:47→20:44)
[2018-11-12] MEDS: APAP/Oxycodone 5/325mg Tab PO PRN ×4 (08:42→20:36)
[2018-11-12] MEDS: Pantoprazole 40 mg EC Tab PO SCH (08:56)
[2018-11-12] MEDS: Multivitamin w/ Minerals Tab PO SCH (08:59)
[2018-11-12] MEDS: Aspirin 81mg Chewable Tab PO SCH (09:00)
--- NOTE | 2018-11-12 11:44 | Internal Medicine Prog Note ---
Internal Medicine Subjective - Subjective Service Date: 11/12/18 Patient seen and examined:: with staff Patient is:: awake, verbal, interactive, in bed, talking, agitated, other (poor insight, patient is still depressed.) Patient Complaints of:: other (Patient is still agitated.) Per staff patient has:: no adverse event, no episodes of fall Internal Medicine Objective - Results Result Diagrams: 10/10/18 13:08 10/10/18 13:08 Recent Labs: Laboratory Last Values WBC 7.0 Th/cmm (4.8-10.8) 10/10/18 13:08 RBC 4.00 Mil/cmm (3.80-5.20) 10/10/18 13:08 Hgb 9.9 gm/dL (12-16) L 10/10/18 13:08 Hct 29.9 % (41.0-60) L 10/10/18 13:08 MCV 74.6 fl (81-100) L 10/10/18 13:08 MCH 24.6 pg (27.0-31.0) L 10/10/18 13:08 MCHC Differential 33.0 pg (28.0-36.0) 10/10/18 13:08 RDW 14.6 % (11.5-20.0) 10/10/18 13:08 Plt Count 273 Th/cmm (150-400) 10/10/18 13:08 MPV 6.4 fl 10/10/18 13:08 Neutrophils % 71.8 % (40.0-80.0) 10/10/18 13:08 Lymphocytes % 18.6 % (20.0-50.0) L 10/10/18 13:08 Monocytes % 7.6 % (2.0-10.0) 10/10/18 13:08 Eosinophils % 1.3 % (0.0-5.0) 10/10/18 13:08 Basophils % 0.7 % (0.0-2.0) 10/10/18 13:08 Sodium 137 mEq/L (136-145) 10/10/18 13:08 Potassium 3.9 mEq/L (3.5-5.1) 10/10/18 13:08 Chloride 104 mEq/L (98-107) 10/10/18 13:08 Carbon Dioxide 24.9 mEq/L (21.0-31.0) 10/10/18 13:08 Anion Gap 12.0 (7.0-16.0) 10/10/18 13:08 BUN 16 mg/dL (7-25) 10/10/18 13:08 Creatinine 1.0 mg/dL (0.6-1.2) 10/10/18 13:08 Est GFR ( Amer) > 60.0 ml/min (>90) 10/10/18 13:08 Est GFR (Non-Af Amer) 58.8 ml/min 10/10/18 13:08 BUN/Creatinine Ratio 16.0 10/10/18 13:08 Glucose 270 mg/dL (70-105) H 10/10/18 13:08 POC Glucose 149 MG/DL (70 - 105) H 11/11/18 20:32 Calcium 9.0 mg/dL (8.6-10.3) 10/10/18 13:08 Total Bilirubin 0.3 mg/dL (0.3-1.0) 10/10/18 13:08 AST 19 U/L (13-39) 10/10/18 13:08 ALT 17 U/L (7-52) 10/10/18 13:08 Alkaline Phosphatase 87 U/L (34-104) 10/10/18 13:08 Total Protein 6.3 gm/dL (6.0-8.3) 10/10/18 13:08 Albumin 3.7 gm/dL (3.7-5.3) 10/10/18 13:08 Globulin 2.6 gm/dL 10/10/18 13:08 Albumin/Globulin Ratio 1.4 (1.0-1.8) 10/10/18 13:08 Urine Source CLEAN C 10/10/18 13:34 Urine Color YELLOW 10/10/18 13:34 Urine Clarity CLEAR (CLEAR) 10/10/18 13:34 Urine pH 5.5 (4.6 - 8.0) 10/10/18 13:34 Ur Specific [place] 1.025 (1.005-1.030) 10/10/18 13:34 Urine Protein NEGATIVE mg/dL (NEGATIVE) 10/10/18 13:34 Urine Glucose (UA) NEGATIVE mg/dL (NEGATIVE) 10/10/18 13:34 Urine Ketones NEGATIVE mg/dL (NEGATIVE) 10/10/18 13:34 Urine Blood NEGATIVE (NEGATIVE) 10/10/18 13:34 Urine Nitrate NEGATIVE (NEGATIVE) 10/10/18 13:34 Urine Bilirubin NEGATIVE (NEGATIVE) 10/10/18 13:34 Urine Urobilinogen 0.2 E.U./dL (0.2 - 1.0) 10/10/18 13:34 Ur Leukocyte Esterase NEGATIVE (NEGATIVE) 10/10/18 13:34 Urine RBC 0-2 /hpf (0-5) 10/10/18 13:34 Urine WBC 2-5 /hpf (0-5) 10/10/18 13:34 Ur Epithelial Cells MODERATE /lpf (FEW) 10/10/18 13:34 Urine Bacteria FEW /hpf (NONE SEEN) 10/10/18 13:34 - Physical Exam Vitals and I&O: Vital Signs Temp 98.8 F 11/12/18 06:18 Pulse 88 11/12/18 09:02 Resp 20 11/12/18 06:18 BP 128/68 11/12/18 06:18 Pulse Ox 94 11/12/18 06:18 Intake & Output 11/11/18 11/12/18 11/12/18 18:59 06:59 18:59 Intake Total 660 Balance 660 Intake: Oral 660 Other: # Voids 2 # Bowel Movements 0 Stool Characteristics Formed Active Medications: Current Medications Acetaminophen (Tylenol) 650 mg PO Q4HR PRN PRN Reason: Mild Pain / Temp above 100 Stop: 12/09/18 19:59 Amiodarone HCl (Cordarone) 200 mg PO BID [facility] Stop: 12/10/18 08:59 Last Admin: 11/12/18 09:02 Dose: 200 mg Amlodipine Besylate (Norvasc) 10 mg PO DAILY [facility] Stop: 12/10/18 08:59 Last Admin: 11/12/18 09:37 Dose: Not Given Ascorbic Acid (Vitamin C) 500 mg PO DAILY [facility] Stop: 12/10/18 08:59 Last Admin: 11/12/18 09:02 Dose: 500 mg Aspirin (Aspirin Chewable) 81 mg PO DAILY [facility] Stop: 12/10/18 08:59 Last Admin: 11/12/18 09:00 Dose: 81 mg Dextrose (D50w) 50 ml IVP PRN PRN PRN Reason: BS below 70&not tolerate po Stop: 12/10/18 10:24 Dextrose (Glutose 40%) 18.75 gm PO PRN PRN PRN Reason: BS below 70 & tolerate po Stop: 12/10/18 10:24 Digoxin (Lanoxin) 0.25 mg PO DAILY [facility] Stop: 12/10/18 08:59 Last Admin: 11/12/18 08:59 Dose: 0.25 mg Docusate Sodium (Colace) 100 mg PO BID [facility] Stop: 12/10/18 08:59 Last Admin: 11/12/18 08:57 Dose: 100 mg Escitalopram Oxalate (Lexapro) 20 mg PO DAILY [facility]; Protocol Stop: 12/10/18 08:59 Last Admin: 11/12/18 08:56 Dose: 20 mg Glucagon (Glucagen) 1 mg IM PRN PRN PRN Reason: BS below 70&dextrose ineffecti Stop: 12/10/18 10:24 Insulin Human Lispro (Humalog Insulin Sliding Scale) 0 units SUBQ ACHS [facility]; Protocol Stop: 12/10/18 11:29 Last Admin: 11/12/18 06:47 Dose: Not Given Lorazepam (Ativan) 0.5 mg PO Q4H PRN; Protocol PRN Reason: Anxiety Stop: 12/09/18 19:59 Metformin HCl (Glucophage) 500 mg PO BIDWM [facility] Stop: 12/10/18 07:59 Last Admin: 11/12/18 09:36 Dose: 500 mg Oxybutynin Chloride (Ditropan) 5 mg PO DAILY [facility] Stop: 12/10/18 08:59 Last Admin: 11/12/18 09:00 Dose: 5 mg Oxycodone/Acetaminophen (Percocet 5/325mg Oral Tab) 1 tab PO Q4H PRN PRN Reason: Severe Pain Stop: 12/31/18 16:54 Last Admin: 11/12/18 08:42 Dose: 1 tab Pantoprazole Sodium (Protonix) 40 mg PO DAILY [facility] Stop: 12/22/18 08:59 Last Admin: 11/12/18 08:56 Dose: 40 mg Quetiapine Fumarate 100 mg/ (Quetiapine Fumarate 50 mg) 150 mg PO HS [facility] Stop: 12/20/18 20:59 Last Admin: 11/11/18 21:06 Dose: 150 mg Rivaroxaban (Xarelto) 20 mg PO DAILY [facility] Stop: 01/01/19 08:59 Last Admin: 11/12/18 08:57 Dose: 20 mg Senna (Senna) 8.6 mg PO DAILY [facility] Stop: 12/10/18 08:59 Last Admin: 11/12/18 08:55 Dose: 8.6 mg Sitagliptin Phosphate (Januvia) 100 mg PO QDAC [facility] Stop: 12/10/18 07:29 Last Admin: 11/12/18 06:47 Dose: Not Given Zolpidem Tartrate (Ambien) 5 mg PO HS PRN PRN Reason: Insomnia Stop: 12/09/18 18:50 Last Admin: 11/10/18 21:53 Dose: 5 mg Physical Exam: 68 y/o patient is gravely disabled and continues to refuse care. Patient continues to have poor insight, has low motivation, verbally depressed has poor sleep patterns. She is in depressed mood, remains very irritable and still states she wants to leave. Patient will continue to be treated and monitored. General: alert, obese HEENT: NC/AT, PERRLA Neck: Supple, No JVD Lungs: CTAB, other (no acute respiratory distress) Cardiovascular: other (regularly irregular) Abdomen: soft, non-tender Extremities: other (back sores, healing slowly.) Neurological: no change, bedbound Internal Medicine Assmt/Plan - Assessment Assessment: Refusing Care 5150 Hold. Diabetes. Afib. Bipolar disorder. Depressed mood. Irritated. Anxiety. Copd. Hypertension. Overactive bladder. Osteoarthritis. Pressure sores. - Plan Plan: Continuation of care. Psych followup/management. Monitor Labs. Continue present meds as directed. Monitor Diet/Nutritional support. Local skin care and wound care. Pain Management. Physical therapy. Occupational therapy. Safety precaution. Supportive care. Fall precaution, frequent nursing rounds, and as needed restraints to prevent fall. Continue collaborating with consulting specialists, case management and nursing team. Will Monitor patient and continue present care management. Nutritional Asmnt/Malnutr-PDOC - Dietary Evaluation Malnutrition Findings (Please click <Entered> for more info): Nutritional Asmnt/Malnutrition Start: 10/11/18 14: 22 Text: Status: Complete Freq: Protocol: Document 10/11/18 14:22 [email or web address] (Rec: 10/11/18 14:31 [email or web address] [email or web address]) Nutritional Asmnt/Malnutrition Patient General Information Nutritional Screening High Risk Diagnosis psychosis Pertinent Medical Hx/Surgical Hx HTN, DM, asthma/COPD, arthritis, afib, knee and rt shoulder surger, csection Subjective Information Pt seen eating lunch in bed at time of visit. Food preference provided to RD. Pt asked for real sugar. Explained to pt that she is on [facility] diet and the benifits for diabetes. Pt stated her blood sugar is fine. Glucose 270 at admission noted. Pt appeared not interested in diabetic education. Per EMR, pt consumed 50% of breakfast today. Current Diet Order/ Nutrition Support [facility] Pertinent Medications vit C, colace, glucophage, protonix, senna, januvia Pertinent Labs 10/10 glucose 270 Nutritional Hx/Data Height 1.68 m Height (Calculated Centimeters) 167.6 Current Weight (lbs) 113.398 kg Weight (Calculated Kilograms) 113.4 Weight (Calculated Grams) 472662.1 [place] Body Weight 130 Body Mass Index (BMI) 40.3 Weight Status Morbidly Obese GI Symptoms GI Symptoms None Last BM none Difficult in: None Skin Integrity/Comment: RT. knee surgery scar,redness to coccyx area mitul 15 Estimated Nutritional Goals BEE in Kcals: Adj wt of IBW Calories/Kcals/Kg 25-30 Kcals Calculated 0912-6481 Protein: Adj wt of IBW Protein g/k Protein Calculated 73 Fluid: ml 1825-2190ml (1ml/kcal) Nutritional Problem 1. Problem Problem altered nutrition related labs Etiology hyperglycemia Signs/Symptoms: gluocse 270 at admission Malnutrition Alert Is there a minimum of two criteria No selected? Query Text:Check all the applicable criteria. A minimum of two criteria are recommended for diagnosis of either severe or non-severe malnutrition. Malnutrition Related to Morbid Obesity Malnutrition related to morbid obesity No Intervention/Recommendation Comments 1. Continue with [facility] diet as ordered. Diet preference updated. 2. Monitor PO intake, wt, labs and skin integrity 3. F/U as low risk in 7 days Expected Outcomes/Goals Expected Outcomes/Goals 1. PO intake to meet at least 75% of nutritional needs. 2. Wt stability, skin to remain intact, labs to approach WNL.
--- NOTE | 2018-11-12 21:33 | Progress Notes ---
DATE: 11/12/2018 SUBJECTIVE: Chart was reviewed and the patient interviewed. Also discussed the patient's condition with the staff and reviewed records and labs. The patient's affect is brighter. The patient seems to be calmer. The patient also is easier to redirect her and follow instructions and directions. She also has been compliant with taking her medications with no side effects of medications. I discussed with the [employer] administrator of [facility] where the patient came from current patient's condition and behavior. He indicated that if her behavior is improved. He is willing to accept her back when he has bed availability. At the same time, we were trying to find placement for the patient. ASSESSMENT: The patient seems to be depressed. PLAN: To continue monitoring her behavior and her condition and continue to work on discharge plans and placement issue. JOB# [id number]
[2018-11-13] MEDS: INSULIN LISPRO SLIDING SCALE 100 UNITS/ML UNIT SUBQ SCH ×4 (07:30→20:31)
[2018-11-13] MEDS: APAP/Oxycodone 5/325mg Tab PO PRN ×4 (08:03→20:30)
[2018-11-13] MEDS: Multivitamin w/ Minerals Tab PO SCH (09:00)
[2018-11-13] MEDS: Pantoprazole 40 mg EC Tab PO SCH (10:35)
[2018-11-13] MEDS: Aspirin 81mg Chewable Tab PO SCH (10:38)
--- NOTE | 2018-11-13 20:01 | Progress Notes ---
DATE: 11/13/2018 SUBJECTIVE: The patient was seen in her room. The patient appears to be irritable, verbalizing depression, poor concentration, poor sleep pattern, episodes of pain, but satisfied with current pain management. Otherwise, the patient appears to be in no acute distress. OBJECTIVE: VITAL SIGNS: Temperature 97.1, heart rate 75, blood pressure 134/63, respirations of 18, 98% on room air. HEENT: Head is atraumatic and normocephalic. Eyes: Bilateral conjunctivae are clear. Bilateral pupils are equally round and reactive. NECK: Supple. No JVD. CARDIOVASCULAR: S1 and S2, without murmur. PULMONARY: Clear to auscultation. GASTROINTESTINAL: Soft and nontender without guarding. Positive bowel sounds. Positive obesity. MUSCULOSKELETAL: No clubbing. No cyanosis. Positive muscle weakness. ASSESSMENT: 1. Bipolar disorder. 2. Hypertension. 3. Diabetes. 4. Atrial fibrillation. 5. Chronic pain syndrome. 6. Overactive bladder. PLAN: We will keep the patient to inpatient Psychiatric Unit and we will follow up with a psychiatrist to monitor the patient's condition and behavior. Treatment plans were discussed with the patient's nurse. Treatment plans were discussed with Dr. Lewis. JOB# [id number]
--- NOTE | 2018-11-14 04:53 | Progress Notes ---
DATE: 11/13/2018 SUBJECTIVE: Chart reviewed and the patient interviewed. Also discussed the patient's condition with the staff and reviewed records and labs. The patient is demanding and she still at times needs lots of help and at the same time, she is at times resisting care. OBJECTIVE: GENERAL: The patient has been calm and cooperative. The patient's affect today also is brighter because the patient is interviewed by the order administrator of the previous placement and he seems that he might take her "Thursday." Discussed with the patient the importance of knowing the rules and the regulations in the residential there prior to her going back because if we will give her a second chance, she needs to be cooperative with the staff there. At the same time, the patient is compliant with taking her medications with no side effects of medications. ASSESSMENT: The patient is still depressed and anxious. TREATMENT PLAN: Continue to monitor behavior. Also, continue to work on placement issue and discharge plans. JOB# [id number]
[2018-11-14] MEDS: INSULIN LISPRO SLIDING SCALE 100 UNITS/ML UNIT SUBQ SCH ×4 (06:37→20:15)
[2018-11-14] MEDS: Multivitamin w/ Minerals Tab PO SCH (08:37)
[2018-11-14] MEDS: Aspirin 81mg Chewable Tab PO SCH (08:37)
[2018-11-14] MEDS: Pantoprazole 40 mg EC Tab PO SCH (08:39)
[2018-11-14] MEDS: APAP/Oxycodone 5/325mg Tab PO PRN ×3 (08:50→19:58)
--- NOTE | 2018-11-14 09:49 | Internal Medicine Prog Note ---
Internal Medicine Subjective - Subjective Patient seen and examined:: with staff Patient is:: awake, verbal, interactive, in bed, talking, agitated, other (poor insight, patient is still depressed.) Patient Complaints of:: other (Patient is still agitated.) Per staff patient has:: no adverse event, no episodes of fall Internal Medicine Objective - Results Result Diagrams: 10/10/18 13:08 10/10/18 13:08 Recent Labs: Laboratory Last Values WBC 7.0 Th/cmm (4.8-10.8) 10/10/18 13:08 RBC 4.00 Mil/cmm (3.80-5.20) 10/10/18 13:08 Hgb 9.9 gm/dL (12-16) L 10/10/18 13:08 Hct 29.9 % (41.0-60) L 10/10/18 13:08 MCV 74.6 fl (81-100) L 10/10/18 13:08 MCH 24.6 pg (27.0-31.0) L 10/10/18 13:08 MCHC Differential 33.0 pg (28.0-36.0) 10/10/18 13:08 RDW 14.6 % (11.5-20.0) 10/10/18 13:08 Plt Count 273 Th/cmm (150-400) 10/10/18 13:08 MPV 6.4 fl 10/10/18 13:08 Neutrophils % 71.8 % (40.0-80.0) 10/10/18 13:08 Lymphocytes % 18.6 % (20.0-50.0) L 10/10/18 13:08 Monocytes % 7.6 % (2.0-10.0) 10/10/18 13:08 Eosinophils % 1.3 % (0.0-5.0) 10/10/18 13:08 Basophils % 0.7 % (0.0-2.0) 10/10/18 13:08 Sodium 137 mEq/L (136-145) 10/10/18 13:08 Potassium 3.9 mEq/L (3.5-5.1) 10/10/18 13:08 Chloride 104 mEq/L (98-107) 10/10/18 13:08 Carbon Dioxide 24.9 mEq/L (21.0-31.0) 10/10/18 13:08 Anion Gap 12.0 (7.0-16.0) 10/10/18 13:08 BUN 16 mg/dL (7-25) 10/10/18 13:08 Creatinine 1.0 mg/dL (0.6-1.2) 10/10/18 13:08 Est GFR ( Amer) > 60.0 ml/min (>90) 10/10/18 13:08 Est GFR (Non-Af Amer) 58.8 ml/min 10/10/18 13:08 BUN/Creatinine Ratio 16.0 10/10/18 13:08 Glucose 270 mg/dL (70-105) H 10/10/18 13:08 POC Glucose 105 MG/DL (70 - 105) 11/14/18 05:59 Calcium 9.0 mg/dL (8.6-10.3) 10/10/18 13:08 Total Bilirubin 0.3 mg/dL (0.3-1.0) 10/10/18 13:08 AST 19 U/L (13-39) 10/10/18 13:08 ALT 17 U/L (7-52) 10/10/18 13:08 Alkaline Phosphatase 87 U/L (34-104) 10/10/18 13:08 Total Protein 6.3 gm/dL (6.0-8.3) 10/10/18 13:08 Albumin 3.7 gm/dL (3.7-5.3) 10/10/18 13:08 Globulin 2.6 gm/dL 10/10/18 13:08 Albumin/Globulin Ratio 1.4 (1.0-1.8) 10/10/18 13:08 Urine Source CLEAN C 10/10/18 13:34 Urine Color YELLOW 10/10/18 13:34 Urine Clarity CLEAR (CLEAR) 10/10/18 13:34 Urine pH 5.5 (4.6 - 8.0) 10/10/18 13:34 Ur Specific [place] 1.025 (1.005-1.030) 10/10/18 13:34 Urine Protein NEGATIVE mg/dL (NEGATIVE) 10/10/18 13:34 Urine Glucose (UA) NEGATIVE mg/dL (NEGATIVE) 10/10/18 13:34 Urine Ketones NEGATIVE mg/dL (NEGATIVE) 10/10/18 13:34 Urine Blood NEGATIVE (NEGATIVE) 10/10/18 13:34 Urine Nitrate NEGATIVE (NEGATIVE) 10/10/18 13:34 Urine Bilirubin NEGATIVE (NEGATIVE) 10/10/18 13:34 Urine Urobilinogen 0.2 E.U./dL (0.2 - 1.0) 10/10/18 13:34 Ur Leukocyte Esterase NEGATIVE (NEGATIVE) 10/10/18 13:34 Urine RBC 0-2 /hpf (0-5) 10/10/18 13:34 Urine WBC 2-5 /hpf (0-5) 10/10/18 13:34 Ur Epithelial Cells MODERATE /lpf (FEW) 10/10/18 13:34 Urine Bacteria FEW /hpf (NONE SEEN) 10/10/18 13:34 - Physical Exam Vitals and I&O: Vital Signs Temp 97 F 11/13/18 20:00 Pulse 59 11/14/18 08:36 Resp 18 11/13/18 20:00 BP 113/54 11/14/18 08:34 Pulse Ox 97 11/13/18 20:00 Intake & Output 11/13/18 11/14/18 11/14/18 18:59 06:59 18:59 Intake Total 120 Balance 120 Intake: Oral 120 Active Medications: Current Medications Acetaminophen (Tylenol) 650 mg PO Q4HR PRN PRN Reason: Mild Pain / Temp above 100 Stop: 12/09/18 19:59 Amiodarone HCl (Cordarone) 200 mg PO BID [facility] Stop: 12/10/18 08:59 Last Admin: 11/14/18 08:33 Dose: Not Given Amlodipine Besylate (Norvasc) 10 mg PO DAILY [facility] Stop: 12/10/18 08:59 Last Admin: 11/14/18 08:34 Dose: Not Given Ascorbic Acid (Vitamin C) 500 mg PO DAILY [facility] Stop: 12/10/18 08:59 Last Admin: 11/14/18 08:38 Dose: 500 mg Aspirin (Aspirin Chewable) 81 mg PO DAILY [facility] Stop: 12/10/18 08:59 Last Admin: 11/14/18 08:37 Dose: 81 mg Dextrose (D50w) 50 ml IVP PRN PRN PRN Reason: BS below 70&not tolerate po Stop: 12/10/18 10:24 Dextrose (Glutose 40%) 18.75 gm PO PRN PRN PRN Reason: BS below 70 & tolerate po Stop: 12/10/18 10:24 Digoxin (Lanoxin) 0.25 mg PO DAILY [facility] Stop: 12/10/18 08:59 Last Admin: 11/14/18 08:36 Dose: Not Given Docusate Sodium (Colace) 100 mg PO BID [facility] Stop: 12/10/18 08:59 Last Admin: 11/14/18 08:41 Dose: 100 mg Escitalopram Oxalate (Lexapro) 20 mg PO DAILY [facility]; Protocol Stop: 12/10/18 08:59 Last Admin: 11/14/18 08:40 Dose: 20 mg Glucagon (Glucagen) 1 mg IM PRN PRN PRN Reason: BS below 70&dextrose ineffecti Stop: 12/10/18 10:24 Insulin Human Lispro (Humalog Insulin Sliding Scale) 0 units SUBQ ACHS [facility]; Protocol Stop: 12/10/18 11:29 Last Admin: 11/14/18 06:37 Dose: Not Given Lorazepam (Ativan) 0.5 mg PO Q4H PRN; Protocol PRN Reason: Anxiety Stop: 12/09/18 19:59 Metformin HCl (Glucophage) 500 mg PO BIDWM [facility] Stop: 12/10/18 07:59 Last Admin: 11/14/18 08:37 Dose: 500 mg Oxybutynin Chloride (Ditropan) 5 mg PO DAILY [facility] Stop: 12/10/18 08:59 Last Admin: 11/14/18 08:39 Dose: 5 mg Oxycodone/Acetaminophen (Percocet 5/325mg Oral Tab) 1 tab PO Q4H PRN PRN Reason: Severe Pain Stop: 12/31/18 16:54 Last Admin: 11/14/18 08:50 Dose: 1 tab Pantoprazole Sodium (Protonix) 40 mg PO DAILY [facility] Stop: 12/22/18 08:59 Last Admin: 11/14/18 08:39 Dose: Not Given Quetiapine Fumarate 100 mg/ (Quetiapine Fumarate 50 mg) 150 mg PO HS [facility] Stop: 12/20/18 20:59 Last Admin: 11/13/18 20:31 Dose: 150 mg Rivaroxaban (Xarelto) 20 mg PO DAILY [facility] Stop: 01/01/19 08:59 Last Admin: 11/14/18 08:40 Dose: 20 mg Senna (Senna) 8.6 mg PO DAILY [facility] Stop: 12/10/18 08:59 Last Admin: 11/14/18 08:37 Dose: 8.6 mg Sitagliptin Phosphate (Januvia) 100 mg PO QDAC [facility] Stop: 12/10/18 07:29 Last Admin: 11/14/18 06:37 Dose: Not Given Zolpidem Tartrate (Ambien) 5 mg PO HS PRN PRN Reason: Insomnia Stop: 12/09/18 18:50 Last Admin: 11/13/18 21:23 Dose: 5 mg General: alert, obese, NAD HEENT: NC/AT, PERRLA Neck: Supple, No JVD Lungs: CTAB, other (no acute respiratory distress) Cardiovascular: other (regularly irregular) Abdomen: soft, non-tender Extremities: other (back sores, healing slowly.) Neurological: no change, bedbound Internal Medicine Assmt/Plan - Assessment Assessment: Bipolar disorder Afib DM OA Overactive bladder HTN Anxiety Pressure Ulcers - Plan Plan: Continue to keep in Inpatient Psychiatric Unit. Continue to f/u with psych recs, pt's condition and behavior. Continue current treatments. Continue collaboration with consulting specialist, nursing team and interdisciplinary team. Fall Precaution. Dispo planning Nutritional Asmnt/Malnutr-PDOC - Dietary Evaluation Malnutrition Findings (Please click <Entered> for more info): Nutritional Asmnt/Malnutrition Start: 10/11/18 14: 22 Text: Status: Complete Freq: Protocol: Document 10/11/18 14:22 LCHENG (Rec: 10/11/18 14:31 LCHAILEYG [email or web address]) Nutritional Asmnt/Malnutrition Patient General Information Nutritional Screening High Risk Diagnosis psychosis Pertinent Medical Hx/Surgical Hx HTN, DM, asthma/COPD, arthritis, afib, knee and rt shoulder surger, csection Subjective Information Pt seen eating lunch in bed at time of visit. Food preference provided to RD. Pt asked for real sugar. Explained to pt that she is on [facility] diet and the benifits for diabetes. Pt stated her blood sugar is fine. Glucose 270 at admission noted. Pt appeared not interested in diabetic education. Per EMR, pt consumed 50% of breakfast today. Current Diet Order/ Nutrition Support [facility] Pertinent Medications vit C, colace, glucophage, protonix, senna, januvia Pertinent Labs 10/10 glucose 270 Nutritional Hx/Data Height 5 ft 6 in Height (Calculated Centimeters) 167.6 Current Weight (lbs) 250 lb Weight (Calculated Kilograms) 113.4 Weight (Calculated Grams) 425181.1 [place] Body Weight 130 Body Mass Index (BMI) 40.3 Weight Status Morbidly Obese GI Symptoms GI Symptoms None Last BM none Difficult in: None Skin Integrity/Comment: RT. knee surgery scar,redness to coccyx area mitul 15 Estimated Nutritional Goals BEE in Kcals: Adj wt of IBW Calories/Kcals/Kg 25-30 Kcals Calculated 3163-7104 Protein: Adj wt of IBW Protein g/k Protein Calculated 73 Fluid: ml 1825-2190ml (1ml/kcal) Nutritional Problem 1. Problem Problem altered nutrition related labs Etiology hyperglycemia Signs/Symptoms: gluocse 270 at admission Malnutrition Alert Is there a minimum of two criteria No selected? Query Text:Check all the applicable criteria. A minimum of two criteria are recommended for diagnosis of either severe or non-severe malnutrition. Malnutrition Related to Morbid Obesity Malnutrition related to morbid obesity No Intervention/Recommendation Comments 1. Continue with [facility] diet as ordered. Diet preference updated. 2. Monitor PO intake, wt, labs and skin integrity 3. F/U as low risk in 7 days Expected Outcomes/Goals Expected Outcomes/Goals 1. PO intake to meet at least 75% of nutritional needs. 2. Wt stability, skin to remain intact, labs to approach WNL.
--- NOTE | 2018-11-15 00:12 | Progress Notes ---
DATE: 11/14/2018 SUBJECTIVE: Chart was reviewed and the patient interviewed. Also discussed the patient's condition with the staff and reviewed records and labs. The patient is still anxious about her discharge and she is still in a depressed mood. The patient also still has difficulty with her controlling her temper at times. On the other hand, it is easier to redirect her. The patient denies any thoughts of suicide. She also at times is uncooperative in regard to her rehabilitation and ADLs. ASSESSMENT: The patient is less depressed, but still had episodes of not cooperative with her ADLs. TREATMENT PLAN: Continue to monitor her condition and her behavior. Also, continue to work on her discharge plans and hopefully the patient can be admitted to [place]. [facility]# [id number]
[2018-11-15] MEDS: INSULIN LISPRO SLIDING SCALE 100 UNITS/ML UNIT SUBQ SCH ×4 (06:38→20:37)
[2018-11-15] MEDS: Pantoprazole 40 mg EC Tab PO SCH (08:23)
[2018-11-15] MEDS: Aspirin 81mg Chewable Tab PO SCH (08:24)
[2018-11-15] MEDS: APAP/Oxycodone 5/325mg Tab PO PRN ×4 (08:25→20:37)
[2018-11-15] MEDS: Multivitamin w/ Minerals Tab PO SCH (08:25)
--- NOTE | 2018-11-15 10:06 | Internal Medicine Prog Note ---
Internal Medicine Subjective - Subjective Service Date: 11/15/18 Patient seen and examined:: with staff Patient is:: awake, verbal, interactive, in bed, talking, agitated, other (Pt gets easily frustrated and gets upset easily.) Patient Complaints of:: other (Patient is still agitated.) Per staff patient has:: no adverse event, no episodes of fall Internal Medicine Objective - Results Result Diagrams: 10/10/18 13:08 10/10/18 13:08 Recent Labs: Laboratory Last Values WBC 7.0 Th/cmm (4.8-10.8) 10/10/18 13:08 RBC 4.00 Mil/cmm (3.80-5.20) 10/10/18 13:08 Hgb 9.9 gm/dL (12-16) L 10/10/18 13:08 Hct 29.9 % (41.0-60) L 10/10/18 13:08 MCV 74.6 fl (81-100) L 10/10/18 13:08 MCH 24.6 pg (27.0-31.0) L 10/10/18 13:08 MCHC Differential 33.0 pg (28.0-36.0) 10/10/18 13:08 RDW 14.6 % (11.5-20.0) 10/10/18 13:08 Plt Count 273 Th/cmm (150-400) 10/10/18 13:08 MPV 6.4 fl 10/10/18 13:08 Neutrophils % 71.8 % (40.0-80.0) 10/10/18 13:08 Lymphocytes % 18.6 % (20.0-50.0) L 10/10/18 13:08 Monocytes % 7.6 % (2.0-10.0) 10/10/18 13:08 Eosinophils % 1.3 % (0.0-5.0) 10/10/18 13:08 Basophils % 0.7 % (0.0-2.0) 10/10/18 13:08 Sodium 137 mEq/L (136-145) 10/10/18 13:08 Potassium 3.9 mEq/L (3.5-5.1) 10/10/18 13:08 Chloride 104 mEq/L (98-107) 10/10/18 13:08 Carbon Dioxide 24.9 mEq/L (21.0-31.0) 10/10/18 13:08 Anion Gap 12.0 (7.0-16.0) 10/10/18 13:08 BUN 16 mg/dL (7-25) 10/10/18 13:08 Creatinine 1.0 mg/dL (0.6-1.2) 10/10/18 13:08 Est GFR ( Amer) > 60.0 ml/min (>90) 10/10/18 13:08 Est GFR (Non-Af Amer) 58.8 ml/min 10/10/18 13:08 BUN/Creatinine Ratio 16.0 10/10/18 13:08 Glucose 270 mg/dL (70-105) H 10/10/18 13:08 POC Glucose 105 MG/DL (70 - 105) 11/14/18 05:59 Calcium 9.0 mg/dL (8.6-10.3) 10/10/18 13:08 Total Bilirubin 0.3 mg/dL (0.3-1.0) 10/10/18 13:08 AST 19 U/L (13-39) 10/10/18 13:08 ALT 17 U/L (7-52) 10/10/18 13:08 Alkaline Phosphatase 87 U/L (34-104) 10/10/18 13:08 Total Protein 6.3 gm/dL (6.0-8.3) 10/10/18 13:08 Albumin 3.7 gm/dL (3.7-5.3) 10/10/18 13:08 Globulin 2.6 gm/dL 10/10/18 13:08 Albumin/Globulin Ratio 1.4 (1.0-1.8) 10/10/18 13:08 Urine Source CLEAN C 10/10/18 13:34 Urine Color YELLOW 10/10/18 13:34 Urine Clarity CLEAR (CLEAR) 10/10/18 13:34 Urine pH 5.5 (4.6 - 8.0) 10/10/18 13:34 Ur Specific [place] 1.025 (1.005-1.030) 10/10/18 13:34 Urine Protein NEGATIVE mg/dL (NEGATIVE) 10/10/18 13:34 Urine Glucose (UA) NEGATIVE mg/dL (NEGATIVE) 10/10/18 13:34 Urine Ketones NEGATIVE mg/dL (NEGATIVE) 10/10/18 13:34 Urine Blood NEGATIVE (NEGATIVE) 10/10/18 13:34 Urine Nitrate NEGATIVE (NEGATIVE) 10/10/18 13:34 Urine Bilirubin NEGATIVE (NEGATIVE) 10/10/18 13:34 Urine Urobilinogen 0.2 E.U./dL (0.2 - 1.0) 10/10/18 13:34 Ur Leukocyte Esterase NEGATIVE (NEGATIVE) 10/10/18 13:34 Urine RBC 0-2 /hpf (0-5) 10/10/18 13:34 Urine WBC 2-5 /hpf (0-5) 10/10/18 13:34 Ur Epithelial Cells MODERATE /lpf (FEW) 10/10/18 13:34 Urine Bacteria FEW /hpf (NONE SEEN) 10/10/18 13:34 - Physical Exam Vitals and I&O: Vital Signs Temp 97.5 F 11/14/18 20:21 Pulse 58 11/14/18 20:21 Resp 19 11/14/18 20:21 BP 137/77 11/14/18 20:21 Pulse Ox 94 11/14/18 20:21 Intake & Output 11/14/18 11/15/18 11/15/18 18:59 06:59 18:59 Intake Total 2800 280 Balance 2800 280 Intake: Oral 2800 280 Other: # Voids 6 2 # Bowel Movements 0 0 Active Medications: Current Medications Acetaminophen (Tylenol) 650 mg PO Q4HR PRN PRN Reason: Mild Pain / Temp above 100 Stop: 12/09/18 19:59 Amiodarone HCl (Cordarone) 200 mg PO BID [facility] Stop: 12/10/18 08:59 Last Admin: 11/15/18 08:24 Dose: Not Given Amlodipine Besylate (Norvasc) 10 mg PO DAILY [facility] Stop: 12/10/18 08:59 Last Admin: 11/15/18 08:23 Dose: Not Given Ascorbic Acid (Vitamin C) 500 mg PO DAILY [facility] Stop: 12/10/18 08:59 Last Admin: 11/15/18 08:26 Dose: 500 mg Aspirin (Aspirin Chewable) 81 mg PO DAILY [facility] Stop: 12/10/18 08:59 Last Admin: 11/15/18 08:24 Dose: 81 mg Dextrose (D50w) 50 ml IVP PRN PRN PRN Reason: BS below 70&not tolerate po Stop: 12/10/18 10:24 Dextrose (Glutose 40%) 18.75 gm PO PRN PRN PRN Reason: BS below 70 & tolerate po Stop: 12/10/18 10:24 Digoxin (Lanoxin) 0.25 mg PO DAILY [facility] Stop: 12/10/18 08:59 Last Admin: 11/15/18 08:23 Dose: Not Given Docusate Sodium (Colace) 100 mg PO BID [facility] Stop: 12/10/18 08:59 Last Admin: 11/15/18 08:25 Dose: 100 mg Escitalopram Oxalate (Lexapro) 20 mg PO DAILY [facility]; Protocol Stop: 12/10/18 08:59 Last Admin: 11/15/18 08:25 Dose: 20 mg Glucagon (Glucagen) 1 mg IM PRN PRN PRN Reason: BS below 70&dextrose ineffecti Stop: 12/10/18 10:24 Insulin Human Lispro (Humalog Insulin Sliding Scale) 0 units SUBQ ACHS [facility]; Protocol Stop: 12/10/18 11:29 Last Admin: 11/15/18 06:38 Dose: Not Given Lorazepam (Ativan) 0.5 mg PO Q4H PRN; Protocol PRN Reason: Anxiety Stop: 12/09/18 19:59 Metformin HCl (Glucophage) 500 mg PO BIDWM [facility] Stop: 12/10/18 07:59 Last Admin: 11/15/18 08:25 Dose: 500 mg Oxybutynin Chloride (Ditropan) 5 mg PO DAILY [facility] Stop: 12/10/18 08:59 Last Admin: 11/15/18 08:25 Dose: 5 mg Oxycodone/Acetaminophen (Percocet 5/325mg Oral Tab) 1 tab PO Q4H PRN PRN Reason: Severe Pain Stop: 12/31/18 16:54 Last Admin: 11/15/18 08:25 Dose: 1 tab Pantoprazole Sodium (Protonix) 40 mg PO DAILY [facility] Stop: 12/22/18 08:59 Last Admin: 11/15/18 08:23 Dose: Not Given Quetiapine Fumarate 100 mg/ (Quetiapine Fumarate 50 mg) 150 mg PO HS [facility] Stop: 12/20/18 20:59 Last Admin: 11/14/18 20:15 Dose: 150 mg Rivaroxaban (Xarelto) 20 mg PO DAILY [facility] Stop: 01/01/19 08:59 Last Admin: 11/15/18 08:24 Dose: 20 mg Senna (Senna) 8.6 mg PO DAILY [facility] Stop: 12/10/18 08:59 Last Admin: 11/15/18 08:24 Dose: 8.6 mg Sitagliptin Phosphate (Januvia) 100 mg PO QDAC [facility] Stop: 12/10/18 07:29 Last Admin: 11/15/18 06:38 Dose: Not Given Zolpidem Tartrate (Ambien) 5 mg PO HS PRN PRN Reason: Insomnia Stop: 12/09/18 18:50 Last Admin: 11/14/18 21:51 Dose: 5 mg Physical Exam: 68 y/o patient is gravely disabled and is still refusing care. Patient continues to be easily agitated and upset, states she wants to leave. Patient will continue to be treated and monitored. General: alert, obese, NAD HEENT: NC/AT, PERRLA Neck: Supple, No JVD Lungs: CTAB, other (no acute respiratory distress) Cardiovascular: other (regularly irregular) Abdomen: soft, non-tender Extremities: other (back sores, healing slowly.) Neurological: no change, bedbound Internal Medicine Assmt/Plan - Assessment Assessment: Refusing Care 5150 Hold. Diabetes. Afib. Bipolar disorder. Depressed mood. Irritated. Anxiety. Copd. Hypertension. Overactive bladder. Osteoarthritis. Pressure sores. - Plan Plan: Continuation of care. Psych followup/management. Monitor Labs. Continue present meds as directed. Monitor Diet/Nutritional support. Local skin care and wound care. Pain Management. Physical therapy. Occupational therapy. Safety precaution. Supportive care. Fall precaution, frequent nursing rounds, and as needed restraints to prevent fall. Continue collaborating with consulting specialists, case management and nursing team. Will Monitor patient and continue present care management. Nutritional Asmnt/Malnutr-PDOC - Dietary Evaluation Malnutrition Findings (Please click <Entered> for more info): Nutritional Asmnt/Malnutrition Start: 10/11/18 14: 22 Text: Status: Complete Freq: Protocol: Document 10/11/18 14:22 LCHAILEYG (Rec: 10/11/18 14:31 DILAN [email or web address]) Nutritional Asmnt/Malnutrition Patient General Information Nutritional Screening High Risk Diagnosis psychosis Pertinent Medical Hx/Surgical Hx HTN, DM, asthma/COPD, arthritis, afib, knee and rt shoulder surger, csection Subjective Information Pt seen eating lunch in bed at time of visit. Food preference provided to RD. Pt asked for real sugar. Explained to pt that she is on [facility] diet and the benifits for diabetes. Pt stated her blood sugar is fine. Glucose 270 at admission noted. Pt appeared not interested in diabetic education. Per EMR, pt consumed 50% of breakfast today. Current Diet Order/ Nutrition Support [facility] Pertinent Medications vit C, colace, glucophage, protonix, senna, januvia Pertinent Labs 10/10 glucose 270 Nutritional Hx/Data Height 1.68 m Height (Calculated Centimeters) 167.6 Current Weight (lbs) 113.398 kg Weight (Calculated Kilograms) 113.4 Weight (Calculated Grams) 687568.1 [place] Body Weight 130 Body Mass Index (BMI) 40.3 Weight Status Morbidly Obese GI Symptoms GI Symptoms None Last BM none Difficult in: None Skin Integrity/Comment: RT. knee surgery scar,redness to coccyx area mitul 15 Estimated Nutritional Goals BEE in Kcals: Adj wt of IBW Calories/Kcals/Kg 25-30 Kcals Calculated 2383-8821 Protein: Adj wt of IBW Protein g/k Protein Calculated 73 Fluid: ml 1825-2190ml (1ml/kcal) Nutritional Problem 1. Problem Problem altered nutrition related labs Etiology hyperglycemia Signs/Symptoms: gluocse 270 at admission Malnutrition Alert Is there a minimum of two criteria No selected? Query Text:Check all the applicable criteria. A minimum of two criteria are recommended for diagnosis of either severe or non-severe malnutrition. Malnutrition Related to Morbid Obesity Malnutrition related to morbid obesity No Intervention/Recommendation Comments 1. Continue with [facility] diet as ordered. Diet preference updated. 2. Monitor PO intake, wt, labs and skin integrity 3. F/U as low risk in 7 days Expected Outcomes/Goals Expected Outcomes/Goals 1. PO intake to meet at least 75% of nutritional needs. 2. Wt stability, skin to remain intact, labs to approach WNL.
--- NOTE | 2018-11-15 18:54 | Internal Medicine Prog Note ---
Internal Medicine Subjective - Subjective Service Date: 11/15/18 Patient is:: awake, verbal, interactive, in bed, talking, agitated, other (Pt gets easily frustrated and gets upset easily.) Patient Complaints of:: other (Patient is still agitated.) Per staff patient has:: no adverse event, no episodes of fall Internal Medicine Objective - Results Result Diagrams: 10/10/18 13:08 10/10/18 13:08 Recent Labs: Laboratory Last Values WBC 7.0 Th/cmm (4.8-10.8) 10/10/18 13:08 RBC 4.00 Mil/cmm (3.80-5.20) 10/10/18 13:08 Hgb 9.9 gm/dL (12-16) L 10/10/18 13:08 Hct 29.9 % (41.0-60) L 10/10/18 13:08 MCV 74.6 fl (81-100) L 10/10/18 13:08 MCH 24.6 pg (27.0-31.0) L 10/10/18 13:08 MCHC Differential 33.0 pg (28.0-36.0) 10/10/18 13:08 RDW 14.6 % (11.5-20.0) 10/10/18 13:08 Plt Count 273 Th/cmm (150-400) 10/10/18 13:08 MPV 6.4 fl 10/10/18 13:08 Neutrophils % 71.8 % (40.0-80.0) 10/10/18 13:08 Lymphocytes % 18.6 % (20.0-50.0) L 10/10/18 13:08 Monocytes % 7.6 % (2.0-10.0) 10/10/18 13:08 Eosinophils % 1.3 % (0.0-5.0) 10/10/18 13:08 Basophils % 0.7 % (0.0-2.0) 10/10/18 13:08 Sodium 137 mEq/L (136-145) 10/10/18 13:08 Potassium 3.9 mEq/L (3.5-5.1) 10/10/18 13:08 Chloride 104 mEq/L (98-107) 10/10/18 13:08 Carbon Dioxide 24.9 mEq/L (21.0-31.0) 10/10/18 13:08 Anion Gap 12.0 (7.0-16.0) 10/10/18 13:08 BUN 16 mg/dL (7-25) 10/10/18 13:08 Creatinine 1.0 mg/dL (0.6-1.2) 10/10/18 13:08 Est GFR ( Amer) > 60.0 ml/min (>90) 10/10/18 13:08 Est GFR (Non-Af Amer) 58.8 ml/min 10/10/18 13:08 BUN/Creatinine Ratio 16.0 10/10/18 13:08 Glucose 270 mg/dL (70-105) H 10/10/18 13:08 POC Glucose 146 MG/DL (70 - 105) H 11/15/18 16:49 Calcium 9.0 mg/dL (8.6-10.3) 10/10/18 13:08 Total Bilirubin 0.3 mg/dL (0.3-1.0) 10/10/18 13:08 AST 19 U/L (13-39) 10/10/18 13:08 ALT 17 U/L (7-52) 10/10/18 13:08 Alkaline Phosphatase 87 U/L (34-104) 10/10/18 13:08 Total Protein 6.3 gm/dL (6.0-8.3) 10/10/18 13:08 Albumin 3.7 gm/dL (3.7-5.3) 10/10/18 13:08 Globulin 2.6 gm/dL 10/10/18 13:08 Albumin/Globulin Ratio 1.4 (1.0-1.8) 10/10/18 13:08 Urine Source CLEAN C 10/10/18 13:34 Urine Color YELLOW 10/10/18 13:34 Urine Clarity CLEAR (CLEAR) 10/10/18 13:34 Urine pH 5.5 (4.6 - 8.0) 10/10/18 13:34 Ur Specific [place] 1.025 (1.005-1.030) 10/10/18 13:34 Urine Protein NEGATIVE mg/dL (NEGATIVE) 10/10/18 13:34 Urine Glucose (UA) NEGATIVE mg/dL (NEGATIVE) 10/10/18 13:34 Urine Ketones NEGATIVE mg/dL (NEGATIVE) 10/10/18 13:34 Urine Blood NEGATIVE (NEGATIVE) 10/10/18 13:34 Urine Nitrate NEGATIVE (NEGATIVE) 10/10/18 13:34 Urine Bilirubin NEGATIVE (NEGATIVE) 10/10/18 13:34 Urine Urobilinogen 0.2 E.U./dL (0.2 - 1.0) 10/10/18 13:34 Ur Leukocyte Esterase NEGATIVE (NEGATIVE) 10/10/18 13:34 Urine RBC 0-2 /hpf (0-5) 10/10/18 13:34 Urine WBC 2-5 /hpf (0-5) 10/10/18 13:34 Ur Epithelial Cells MODERATE /lpf (FEW) 10/10/18 13:34 Urine Bacteria FEW /hpf (NONE SEEN) 10/10/18 13:34 - Physical Exam Vitals and I&O: Vital Signs Temp 98.0 F 11/15/18 14:00 Pulse 57 11/15/18 14:00 Resp 20 11/15/18 14:00 BP 132/65 11/15/18 14:00 Pulse Ox 94 11/15/18 14:00 Intake & Output 11/14/18 11/15/18 11/15/18 18:59 06:59 18:59 Intake Total 2800 280 1250 Balance 2800 280 1250 Intake: Oral 2800 280 1250 Other: # Voids 6 2 # Bowel Movements 0 0 Active Medications: Current Medications Acetaminophen (Tylenol) 650 mg PO Q4HR PRN PRN Reason: Mild Pain / Temp above 100 Stop: 12/09/18 19:59 Amiodarone HCl (Cordarone) 200 mg PO BID [facility] Stop: 12/10/18 08:59 Last Admin: 11/15/18 16:02 Dose: Not Given Amlodipine Besylate (Norvasc) 10 mg PO DAILY [facility] Stop: 12/10/18 08:59 Last Admin: 11/15/18 08:23 Dose: Not Given Ascorbic Acid (Vitamin C) 500 mg PO DAILY [facility] Stop: 12/10/18 08:59 Last Admin: 11/15/18 08:26 Dose: 500 mg Aspirin (Aspirin Chewable) 81 mg PO DAILY [facility] Stop: 12/10/18 08:59 Last Admin: 11/15/18 08:24 Dose: 81 mg Dextrose (D50w) 50 ml IVP PRN PRN PRN Reason: BS below 70&not tolerate po Stop: 12/10/18 10:24 Dextrose (Glutose 40%) 18.75 gm PO PRN PRN PRN Reason: BS below 70 & tolerate po Stop: 12/10/18 10:24 Digoxin (Lanoxin) 0.25 mg PO DAILY [facility] Stop: 12/10/18 08:59 Last Admin: 11/15/18 08:23 Dose: Not Given Docusate Sodium (Colace) 100 mg PO BID [facility] Stop: 12/10/18 08:59 Last Admin: 11/15/18 16:01 Dose: 100 mg Escitalopram Oxalate (Lexapro) 20 mg PO DAILY [facility]; Protocol Stop: 12/10/18 08:59 Last Admin: 11/15/18 08:25 Dose: 20 mg Glucagon (Glucagen) 1 mg IM PRN PRN PRN Reason: BS below 70&dextrose ineffecti Stop: 12/10/18 10:24 Insulin Human Lispro (Humalog Insulin Sliding Scale) 0 units SUBQ ACHS [facility]; Protocol Stop: 12/10/18 11:29 Last Admin: 11/15/18 16:51 Dose: Not Given Lorazepam (Ativan) 0.5 mg PO Q4H PRN; Protocol PRN Reason: Anxiety Stop: 12/09/18 19:59 Metformin HCl (Glucophage) 500 mg PO BIDWM [facility] Stop: 12/10/18 07:59 Last Admin: 11/15/18 16:59 Dose: 500 mg Oxybutynin Chloride (Ditropan) 5 mg PO DAILY [facility] Stop: 12/10/18 08:59 Last Admin: 11/15/18 08:25 Dose: 5 mg Oxycodone/Acetaminophen (Percocet 5/325mg Oral Tab) 1 tab PO Q4H PRN PRN Reason: Severe Pain Stop: 12/31/18 16:54 Last Admin: 11/15/18 16:35 Dose: 1 tab Pantoprazole Sodium (Protonix) 40 mg PO DAILY [facility] Stop: 12/22/18 08:59 Last Admin: 11/15/18 08:23 Dose: Not Given Quetiapine Fumarate 100 mg/ (Quetiapine Fumarate 50 mg) 150 mg PO HS [facility] Stop: 12/20/18 20:59 Last Admin: 11/14/18 20:15 Dose: 150 mg Rivaroxaban (Xarelto) 20 mg PO DAILY [facility] Stop: 01/01/19 08:59 Last Admin: 11/15/18 08:24 Dose: 20 mg Senna (Senna) 8.6 mg PO DAILY [facility] Stop: 12/10/18 08:59 Last Admin: 11/15/18 08:24 Dose: 8.6 mg Sitagliptin Phosphate (Januvia) 100 mg PO QDAC [facility] Stop: 12/10/18 07:29 Last Admin: 11/15/18 06:38 Dose: Not Given Zolpidem Tartrate (Ambien) 5 mg PO HS PRN PRN Reason: Insomnia Stop: 12/09/18 18:50 Last Admin: 11/14/18 21:51 Dose: 5 mg General: alert, obese, NAD HEENT: NC/AT, PERRLA Neck: Supple, No JVD Lungs: CTAB, other (no acute respiratory distress) Cardiovascular: other (regularly irregular) Abdomen: soft, non-tender Extremities: other (back sores, healing slowly.) Neurological: no change, bedbound Internal Medicine Assmt/Plan - Assessment Assessment: Refusing Care 5150 Hold. Diabetes. Afib. Bipolar disorder. Depressed mood. Anxiety. Copd. Hypertension. Osteoarthritis. Pressure sores. - Plan Plan: fall precautions cpm Nutritional Asmnt/Malnutr-PDOC - Dietary Evaluation Malnutrition Findings (Please click <Entered> for more info): Nutritional Asmnt/Malnutrition Start: 10/11/18 14: 22 Text: Status: Complete Freq: Protocol: Document 10/11/18 14:22 LCHENG (Rec: 10/11/18 14:31 [email or web address]) Nutritional Asmnt/Malnutrition Patient General Information Nutritional Screening High Risk Diagnosis psychosis Pertinent Medical Hx/Surgical Hx HTN, DM, asthma/COPD, arthritis, afib, knee and rt shoulder surger, csection Subjective Information Pt seen eating lunch in bed at time of visit. Food preference provided to RD. Pt asked for real sugar. Explained to pt that she is on [facility] diet and the benifits for diabetes. Pt stated her blood sugar is fine. Glucose 270 at admission noted. Pt appeared not interested in diabetic education. Per EMR, pt consumed 50% of breakfast today. Current Diet Order/ Nutrition Support [facility] Pertinent Medications vit C, colace, glucophage, protonix, senna, januvia Pertinent Labs 10/10 glucose 270 Nutritional Hx/Data Height 5 ft 6 in Height (Calculated Centimeters) 167.6 Current Weight (lbs) 250 lb Weight (Calculated Kilograms) 113.4 Weight (Calculated Grams) 932387.1 [place] Body Weight 130 Body Mass Index (BMI) 40.3 Weight Status Morbidly Obese GI Symptoms GI Symptoms None Last BM none Difficult in: None Skin Integrity/Comment: RT. knee surgery scar,redness to coccyx area mitul 15 Estimated Nutritional Goals BEE in Kcals: Adj wt of IBW Calories/Kcals/Kg 25-30 Kcals Calculated 4932-9223 Protein: Adj wt of IBW Protein g/k Protein Calculated 73 Fluid: ml 1825-2190ml (1ml/kcal) Nutritional Problem 1. Problem Problem altered nutrition related labs Etiology hyperglycemia Signs/Symptoms: gluocse 270 at admission Malnutrition Alert Is there a minimum of two criteria No selected? Query Text:Check all the applicable criteria. A minimum of two criteria are recommended for diagnosis of either severe or non-severe malnutrition. Malnutrition Related to Morbid Obesity Malnutrition related to morbid obesity No Intervention/Recommendation Comments 1. Continue with [facility] diet as ordered. Diet preference updated. 2. Monitor PO intake, wt, labs and skin integrity 3. F/U as low risk in 7 days Expected Outcomes/Goals Expected Outcomes/Goals 1. PO intake to meet at least 75% of nutritional needs. 2. Wt stability, skin to remain intact, labs to approach WNL.
[2018-11-16] MEDS: INSULIN LISPRO SLIDING SCALE 100 UNITS/ML UNIT SUBQ SCH ×4 (06:43→20:38)
--- NOTE | 2018-11-16 08:08 | Internal Medicine Prog Note ---
Internal Medicine Subjective - Subjective Service Date: 11/16/18 Patient is:: awake, verbal, interactive, in bed, talking, agitated, other (Pt gets easily frustrated and gets upset easily.) Patient Complaints of:: other (Patient is still agitated.) Per staff patient has:: no adverse event, no episodes of fall Internal Medicine Objective - Results Result Diagrams: 10/10/18 13:08 10/10/18 13:08 Recent Labs: Laboratory Last Values WBC 7.0 Th/cmm (4.8-10.8) 10/10/18 13:08 RBC 4.00 Mil/cmm (3.80-5.20) 10/10/18 13:08 Hgb 9.9 gm/dL (12-16) L 10/10/18 13:08 Hct 29.9 % (41.0-60) L 10/10/18 13:08 MCV 74.6 fl (81-100) L 10/10/18 13:08 MCH 24.6 pg (27.0-31.0) L 10/10/18 13:08 MCHC Differential 33.0 pg (28.0-36.0) 10/10/18 13:08 RDW 14.6 % (11.5-20.0) 10/10/18 13:08 Plt Count 273 Th/cmm (150-400) 10/10/18 13:08 MPV 6.4 fl 10/10/18 13:08 Neutrophils % 71.8 % (40.0-80.0) 10/10/18 13:08 Lymphocytes % 18.6 % (20.0-50.0) L 10/10/18 13:08 Monocytes % 7.6 % (2.0-10.0) 10/10/18 13:08 Eosinophils % 1.3 % (0.0-5.0) 10/10/18 13:08 Basophils % 0.7 % (0.0-2.0) 10/10/18 13:08 Sodium 137 mEq/L (136-145) 10/10/18 13:08 Potassium 3.9 mEq/L (3.5-5.1) 10/10/18 13:08 Chloride 104 mEq/L (98-107) 10/10/18 13:08 Carbon Dioxide 24.9 mEq/L (21.0-31.0) 10/10/18 13:08 Anion Gap 12.0 (7.0-16.0) 10/10/18 13:08 BUN 16 mg/dL (7-25) 10/10/18 13:08 Creatinine 1.0 mg/dL (0.6-1.2) 10/10/18 13:08 Est GFR ( Amer) > 60.0 ml/min (>90) 10/10/18 13:08 Est GFR (Non-Af Amer) 58.8 ml/min 10/10/18 13:08 BUN/Creatinine Ratio 16.0 10/10/18 13:08 Glucose 270 mg/dL (70-105) H 10/10/18 13:08 POC Glucose 110 MG/DL (70 - 105) H 11/16/18 06:08 Calcium 9.0 mg/dL (8.6-10.3) 10/10/18 13:08 Total Bilirubin 0.3 mg/dL (0.3-1.0) 10/10/18 13:08 AST 19 U/L (13-39) 10/10/18 13:08 ALT 17 U/L (7-52) 10/10/18 13:08 Alkaline Phosphatase 87 U/L (34-104) 10/10/18 13:08 Total Protein 6.3 gm/dL (6.0-8.3) 10/10/18 13:08 Albumin 3.7 gm/dL (3.7-5.3) 10/10/18 13:08 Globulin 2.6 gm/dL 10/10/18 13:08 Albumin/Globulin Ratio 1.4 (1.0-1.8) 10/10/18 13:08 Urine Source CLEAN C 10/10/18 13:34 Urine Color YELLOW 10/10/18 13:34 Urine Clarity CLEAR (CLEAR) 10/10/18 13:34 Urine pH 5.5 (4.6 - 8.0) 10/10/18 13:34 Ur Specific [place] 1.025 (1.005-1.030) 10/10/18 13:34 Urine Protein NEGATIVE mg/dL (NEGATIVE) 10/10/18 13:34 Urine Glucose (UA) NEGATIVE mg/dL (NEGATIVE) 10/10/18 13:34 Urine Ketones NEGATIVE mg/dL (NEGATIVE) 10/10/18 13:34 Urine Blood NEGATIVE (NEGATIVE) 10/10/18 13:34 Urine Nitrate NEGATIVE (NEGATIVE) 10/10/18 13:34 Urine Bilirubin NEGATIVE (NEGATIVE) 10/10/18 13:34 Urine Urobilinogen 0.2 E.U./dL (0.2 - 1.0) 10/10/18 13:34 Ur Leukocyte Esterase NEGATIVE (NEGATIVE) 10/10/18 13:34 Urine RBC 0-2 /hpf (0-5) 10/10/18 13:34 Urine WBC 2-5 /hpf (0-5) 10/10/18 13:34 Ur Epithelial Cells MODERATE /lpf (FEW) 10/10/18 13:34 Urine Bacteria FEW /hpf (NONE SEEN) 10/10/18 13:34 - Physical Exam Vitals and I&O: Vital Signs Temp 98.2 F 11/15/18 20:42 Pulse 57 11/15/18 20:42 Resp 18 11/16/18 07:44 BP 136/72 11/15/18 20:42 Pulse Ox 93 11/15/18 20:42 Intake & Output 11/15/18 11/16/18 11/16/18 18:59 06:59 18:59 Intake Total 1250 480 Balance 1250 480 Intake: Oral 1250 480 Other: # Voids 1 Active Medications: Current Medications Acetaminophen (Tylenol) 650 mg PO Q4HR PRN PRN Reason: Mild Pain / Temp above 100 Stop: 12/09/18 19:59 Amiodarone HCl (Cordarone) 200 mg PO BID [facility] Stop: 12/10/18 08:59 Last Admin: 11/15/18 16:02 Dose: Not Given Amlodipine Besylate (Norvasc) 10 mg PO DAILY [facility] Stop: 12/10/18 08:59 Last Admin: 11/15/18 08:23 Dose: Not Given Ascorbic Acid (Vitamin C) 500 mg PO DAILY [facility] Stop: 12/10/18 08:59 Last Admin: 11/15/18 08:26 Dose: 500 mg Aspirin (Aspirin Chewable) 81 mg PO DAILY [facility] Stop: 12/10/18 08:59 Last Admin: 11/15/18 08:24 Dose: 81 mg Dextrose (D50w) 50 ml IVP PRN PRN PRN Reason: BS below 70&not tolerate po Stop: 12/10/18 10:24 Dextrose (Glutose 40%) 18.75 gm PO PRN PRN PRN Reason: BS below 70 & tolerate po Stop: 12/10/18 10:24 Digoxin (Lanoxin) 0.25 mg PO DAILY [facility] Stop: 12/10/18 08:59 Last Admin: 11/15/18 08:23 Dose: Not Given Docusate Sodium (Colace) 100 mg PO BID [facility] Stop: 12/10/18 08:59 Last Admin: 11/15/18 16:01 Dose: 100 mg Escitalopram Oxalate (Lexapro) 20 mg PO DAILY [facility]; Protocol Stop: 12/10/18 08:59 Last Admin: 11/15/18 08:25 Dose: 20 mg Glucagon (Glucagen) 1 mg IM PRN PRN PRN Reason: BS below 70&dextrose ineffecti Stop: 12/10/18 10:24 Insulin Human Lispro (Humalog Insulin Sliding Scale) 0 units SUBQ ACHS [facility]; Protocol Stop: 12/10/18 11:29 Last Admin: 11/16/18 06:43 Dose: Not Given Lorazepam (Ativan) 0.5 mg PO Q4H PRN; Protocol PRN Reason: Anxiety Stop: 12/09/18 19:59 Metformin HCl (Glucophage) 500 mg PO BIDWM [facility] Stop: 12/10/18 07:59 Last Admin: 11/15/18 16:59 Dose: 500 mg Oxybutynin Chloride (Ditropan) 5 mg PO DAILY [facility] Stop: 12/10/18 08:59 Last Admin: 11/15/18 08:25 Dose: 5 mg Oxycodone/Acetaminophen (Percocet 5/325mg Oral Tab) 1 tab PO Q4H PRN PRN Reason: Severe Pain Stop: 12/31/18 16:54 Last Admin: 11/15/18 20:37 Dose: 1 tab Pantoprazole Sodium (Protonix) 40 mg PO DAILY [facility] Stop: 12/22/18 08:59 Last Admin: 11/15/18 08:23 Dose: Not Given Quetiapine Fumarate 100 mg/ (Quetiapine Fumarate 50 mg) 150 mg PO HS [facility] Stop: 12/20/18 20:59 Last Admin: 11/15/18 20:54 Dose: 150 mg Rivaroxaban (Xarelto) 20 mg PO DAILY [facility] Stop: 01/01/19 08:59 Last Admin: 11/15/18 08:24 Dose: 20 mg Senna (Senna) 8.6 mg PO DAILY [facility] Stop: 12/10/18 08:59 Last Admin: 11/15/18 08:24 Dose: 8.6 mg Sitagliptin Phosphate (Januvia) 100 mg PO QDAC [facility] Stop: 12/10/18 07:29 Last Admin: 11/16/18 06:50 Dose: Not Given Zolpidem Tartrate (Ambien) 5 mg PO HS PRN PRN Reason: Insomnia Stop: 12/09/18 18:50 Last Admin: 11/15/18 20:56 Dose: 5 mg General: alert, obese, NAD HEENT: NC/AT, PERRLA Neck: Supple, No JVD Lungs: CTAB, other (no acute respiratory distress) Cardiovascular: other (regularly irregular) Abdomen: soft, non-tender Extremities: other (back sores, healing slowly.) Neurological: no change, bedbound Internal Medicine Assmt/Plan - Assessment Assessment: Refusing Care 5150 Hold. Diabetes. Afib. Bipolar disorder. Depressed mood. Anxiety. Copd. Hypertension. Osteoarthritis. Pressure sores. - Plan Plan: fall precautions cpm Nutritional Asmnt/Malnutr-PDOC - Dietary Evaluation Malnutrition Findings (Please click <Entered> for more info): Nutritional Asmnt/Malnutrition Start: 10/11/18 14: 22 Text: Status: Complete Freq: Protocol: Document 10/11/18 14:22 DILAN (Rec: 10/11/18 14:31 DILAN [email or web address]) Nutritional Asmnt/Malnutrition Patient General Information Nutritional Screening High Risk Diagnosis psychosis Pertinent Medical Hx/Surgical Hx HTN, DM, asthma/COPD, arthritis, afib, knee and rt shoulder surger, csection Subjective Information Pt seen eating lunch in bed at time of visit. Food preference provided to RD. Pt asked for real sugar. Explained to pt that she is on [facility] diet and the benifits for diabetes. Pt stated her blood sugar is fine. Glucose 270 at admission noted. Pt appeared not interested in diabetic education. Per EMR, pt consumed 50% of breakfast today. Current Diet Order/ Nutrition Support [facility] Pertinent Medications vit C, colace, glucophage, protonix, senna, januvia Pertinent Labs 10/10 glucose 270 Nutritional Hx/Data Height 5 ft 6 in Height (Calculated Centimeters) 167.6 Current Weight (lbs) 250 lb Weight (Calculated Kilograms) 113.4 Weight (Calculated Grams) 006473.1 [place] Body Weight 130 Body Mass Index (BMI) 40.3 Weight Status Morbidly Obese GI Symptoms GI Symptoms None Last BM none Difficult in: None Skin Integrity/Comment: RT. knee surgery scar,redness to coccyx area mitul 15 Estimated Nutritional Goals BEE in Kcals: Adj wt of IBW Calories/Kcals/Kg 25-30 Kcals Calculated [id number] Protein: Adj wt of IBW Protein g/k Protein Calculated 73 Fluid: ml 1825-2190ml (1ml/kcal) Nutritional Problem 1. Problem Problem altered nutrition related labs Etiology hyperglycemia Signs/Symptoms: gluocse 270 at admission Malnutrition Alert Is there a minimum of two criteria No selected? Query Text:Check all the applicable criteria. A minimum of two criteria are recommended for diagnosis of either severe or non-severe malnutrition. Malnutrition Related to Morbid Obesity Malnutrition related to morbid obesity No Intervention/Recommendation Comments 1. Continue with [facility] diet as ordered. Diet preference updated. 2. Monitor PO intake, wt, labs and skin integrity 3. F/U as low risk in 7 days Expected Outcomes/Goals Expected Outcomes/Goals 1. PO intake to meet at least 75% of nutritional needs. 2. Wt stability, skin to remain intact, labs to approach WNL.
[2018-11-16] MEDS: APAP/Oxycodone 5/325mg Tab PO PRN ×4 (08:39→20:38)
[2018-11-16] MEDS: Pantoprazole 40 mg EC Tab PO SCH (08:40)
[2018-11-16] MEDS: Multivitamin w/ Minerals Tab PO SCH (08:42)
[2018-11-16] MEDS: Aspirin 81mg Chewable Tab PO SCH (08:42)
--- NOTE | 2018-11-16 16:48 | Progress Notes ---
DATE: SUBJECTIVE: Chart was reviewed and the patient interviewed. Also discussed the patient's condition with the staff and reviewed records and labs. The patient's affect is brighter, but she is still in a depressed mood. The patient also is still at times, resisting care, but most of the time the patient is cooperative with her treatment. She also denies any thoughts of suicide or homicide. No side effects of medications. I spoke with income tax administrator of [facility] and discussed with him the placement ____ he wants to take the patients back yet he does not have any openings, no bed available at this time, but he said that the first bed available will be for the patient. At the same time, we will continue monitoring her behavior and continue to work on her ____ and followup. JOB# [id number]
--- NOTE | 2018-11-17 01:32 | Progress Notes ---
DATE: 11/16/2018 SUBJECTIVE: Chart was reviewed and the patient interviewed. Also discussed the patient's condition with the staff and reviewed records and labs. The patient is still preoccupied and she is still in a depressed mood. The patient also is still waiting for a bed available in [facility] to go back to her place. At the same time, she still at times has difficulty following staff directions and still at times, resisting care. Slightly easier to redirect her. ASSESSMENT: The patient is still depressed and waiting for placement. TREATMENT PLAN: Continue to monitor her behavior and condition closely. Also, continue waiting for placement issue and return to [facility] when bed is available. [facility]# [id number]
[2018-11-17] MEDS: APAP/Oxycodone 5/325mg Tab PO PRN ×4 (06:08→22:12)
[2018-11-17] MEDS: INSULIN LISPRO SLIDING SCALE 100 UNITS/ML UNIT SUBQ SCH ×4 (06:59→20:46)
[2018-11-17] MEDS: Multivitamin w/ Minerals Tab PO SCH (09:48)
[2018-11-17] MEDS: Aspirin 81mg Chewable Tab PO SCH (09:48)
[2018-11-17] MEDS: Pantoprazole 40 mg EC Tab PO SCH (09:49)
--- NOTE | 2018-11-17 19:00 | Progress Notes ---
DATE: 11/17/2018 SUBJECTIVE: Chart was reviewed and the patient interviewed. Also discussed the patient's condition with the staff and reviewed records and labs. The patient is calm and cooperative, but she is still in a depressed mood. The patient is less demanding and easier to redirect her. The patient also is interacting more. Otherwise, no side effect of medications. ASSESSMENT: The patient is less irritable and less agitated and waiting for placement. TREATMENT PLAN: Continue to monitor her behavior and her condition closely and continue to work on discharge plans and waiting for an open bed in [facility] in order to go back there or any other openings that come first for the patient placement. [facility] accepted the patient, waiting for a bed. JOB# [id number]
--- NOTE | 2018-11-17 21:22 | Internal Medicine Prog Note ---
Internal Medicine Subjective - Subjective Service Date: 11/17/18 Patient seen and examined:: chart reviewed Patient is:: awake, verbal, interactive, in bed, talking, agitated, other (Pt is agitated.) Patient Complaints of:: other (Patient is still agitated.) Per staff patient has:: no adverse event, no episodes of fall Internal Medicine Objective - Results Result Diagrams: 10/10/18 13:08 10/10/18 13:08 Recent Labs: Laboratory Last Values WBC 7.0 Th/cmm (4.8-10.8) 10/10/18 13:08 RBC 4.00 Mil/cmm (3.80-5.20) 10/10/18 13:08 Hgb 9.9 gm/dL (12-16) L 10/10/18 13:08 Hct 29.9 % (41.0-60) L 10/10/18 13:08 MCV 74.6 fl (81-100) L 10/10/18 13:08 MCH 24.6 pg (27.0-31.0) L 10/10/18 13:08 MCHC Differential 33.0 pg (28.0-36.0) 10/10/18 13:08 RDW 14.6 % (11.5-20.0) 10/10/18 13:08 Plt Count 273 Th/cmm (150-400) 10/10/18 13:08 MPV 6.4 fl 10/10/18 13:08 Neutrophils % 71.8 % (40.0-80.0) 10/10/18 13:08 Lymphocytes % 18.6 % (20.0-50.0) L 10/10/18 13:08 Monocytes % 7.6 % (2.0-10.0) 10/10/18 13:08 Eosinophils % 1.3 % (0.0-5.0) 10/10/18 13:08 Basophils % 0.7 % (0.0-2.0) 10/10/18 13:08 Sodium 137 mEq/L (136-145) 10/10/18 13:08 Potassium 3.9 mEq/L (3.5-5.1) 10/10/18 13:08 Chloride 104 mEq/L (98-107) 10/10/18 13:08 Carbon Dioxide 24.9 mEq/L (21.0-31.0) 10/10/18 13:08 Anion Gap 12.0 (7.0-16.0) 10/10/18 13:08 BUN 16 mg/dL (7-25) 10/10/18 13:08 Creatinine 1.0 mg/dL (0.6-1.2) 10/10/18 13:08 Est GFR ( Amer) > 60.0 ml/min (>90) 10/10/18 13:08 Est GFR (Non-Af Amer) 58.8 ml/min 10/10/18 13:08 BUN/Creatinine Ratio 16.0 10/10/18 13:08 Glucose 270 mg/dL (70-105) H 10/10/18 13:08 POC Glucose 155 MG/DL (70 - 105) H 11/17/18 20:11 Calcium 9.0 mg/dL (8.6-10.3) 10/10/18 13:08 Total Bilirubin 0.3 mg/dL (0.3-1.0) 10/10/18 13:08 AST 19 U/L (13-39) 10/10/18 13:08 ALT 17 U/L (7-52) 10/10/18 13:08 Alkaline Phosphatase 87 U/L (34-104) 10/10/18 13:08 Total Protein 6.3 gm/dL (6.0-8.3) 10/10/18 13:08 Albumin 3.7 gm/dL (3.7-5.3) 10/10/18 13:08 Globulin 2.6 gm/dL 10/10/18 13:08 Albumin/Globulin Ratio 1.4 (1.0-1.8) 10/10/18 13:08 Urine Source CLEAN C 10/10/18 13:34 Urine Color YELLOW 10/10/18 13:34 Urine Clarity CLEAR (CLEAR) 10/10/18 13:34 Urine pH 5.5 (4.6 - 8.0) 10/10/18 13:34 Ur Specific [place] 1.025 (1.005-1.030) 10/10/18 13:34 Urine Protein NEGATIVE mg/dL (NEGATIVE) 10/10/18 13:34 Urine Glucose (UA) NEGATIVE mg/dL (NEGATIVE) 10/10/18 13:34 Urine Ketones NEGATIVE mg/dL (NEGATIVE) 10/10/18 13:34 Urine Blood NEGATIVE (NEGATIVE) 10/10/18 13:34 Urine Nitrate NEGATIVE (NEGATIVE) 10/10/18 13:34 Urine Bilirubin NEGATIVE (NEGATIVE) 10/10/18 13:34 Urine Urobilinogen 0.2 E.U./dL (0.2 - 1.0) 10/10/18 13:34 Ur Leukocyte Esterase NEGATIVE (NEGATIVE) 10/10/18 13:34 Urine RBC 0-2 /hpf (0-5) 10/10/18 13:34 Urine WBC 2-5 /hpf (0-5) 10/10/18 13:34 Ur Epithelial Cells MODERATE /lpf (FEW) 10/10/18 13:34 Urine Bacteria FEW /hpf (NONE SEEN) 10/10/18 13:34 - Physical Exam Vitals and I&O: Vital Signs Temp 97 F 11/17/18 14:00 Pulse 59 11/17/18 14:00 Resp 20 11/17/18 14:00 BP 129/54 11/17/18 14:00 Pulse Ox 98 11/17/18 14:00 Intake & Output 11/17/18 11/17/18 11/18/18 06:59 18:59 06:59 Intake Total 600 1200 Balance 600 1200 Intake: Oral 600 1200 Other: # Voids 1 # Bowel Movements 1 Active Medications: Current Medications Acetaminophen (Tylenol) 650 mg PO Q4HR PRN PRN Reason: Mild Pain / Temp above 100 Stop: 12/09/18 19:59 Amiodarone HCl (Cordarone) 200 mg PO BID [facility] Stop: 12/10/18 08:59 Last Admin: 11/17/18 17:36 Dose: 200 mg Amlodipine Besylate (Norvasc) 10 mg PO DAILY [facility] Stop: 12/10/18 08:59 Last Admin: 11/17/18 09:48 Dose: Not Given Ascorbic Acid (Vitamin C) 500 mg PO DAILY [facility] Stop: 12/10/18 08:59 Last Admin: 11/17/18 09:48 Dose: 500 mg Aspirin (Aspirin Chewable) 81 mg PO DAILY [facility] Stop: 12/10/18 08:59 Last Admin: 11/17/18 09:48 Dose: 81 mg Dextrose (D50w) 50 ml IVP PRN PRN PRN Reason: BS below 70&not tolerate po Stop: 12/10/18 10:24 Dextrose (Glutose 40%) 18.75 gm PO PRN PRN PRN Reason: BS below 70 & tolerate po Stop: 12/10/18 10:24 Digoxin (Lanoxin) 0.25 mg PO DAILY [facility] Stop: 12/10/18 08:59 Last Admin: 11/17/18 09:48 Dose: 0.25 mg Docusate Sodium (Colace) 100 mg PO BID [facility] Stop: 12/10/18 08:59 Last Admin: 11/17/18 17:36 Dose: 100 mg Escitalopram Oxalate (Lexapro) 20 mg PO DAILY [facility]; Protocol Stop: 12/10/18 08:59 Last Admin: 11/17/18 09:48 Dose: 20 mg Glucagon (Glucagen) 1 mg IM PRN PRN PRN Reason: BS below 70&dextrose ineffecti Stop: 12/10/18 10:24 Insulin Human Lispro (Humalog Insulin Sliding Scale) 0 units SUBQ ACHS [facility]; Protocol Stop: 12/10/18 11:29 Last Admin: 11/17/18 20:46 Dose: 2 units Lorazepam (Ativan) 0.5 mg PO Q4H PRN; Protocol PRN Reason: Anxiety Stop: 12/09/18 19:59 Metformin HCl (Glucophage) 500 mg PO BIDWM [facility] Stop: 12/10/18 07:59 Last Admin: 11/17/18 17:36 Dose: 500 mg Oxybutynin Chloride (Ditropan) 5 mg PO DAILY [facility] Stop: 12/10/18 08:59 Last Admin: 11/17/18 09:49 Dose: 5 mg Oxycodone/Acetaminophen (Percocet 5/325mg Oral Tab) 1 tab PO Q4H PRN PRN Reason: Severe Pain Stop: 12/31/18 16:54 Last Admin: 11/17/18 14:17 Dose: 1 tab Pantoprazole Sodium (Protonix) 40 mg PO DAILY [facility] Stop: 12/22/18 08:59 Last Admin: 11/17/18 09:49 Dose: 40 mg Quetiapine Fumarate 100 mg/ (Quetiapine Fumarate 50 mg) 150 mg PO HS [facility] Stop: 12/20/18 20:59 Last Admin: 11/17/18 20:47 Dose: 150 mg Rivaroxaban (Xarelto) 20 mg PO DAILY [facility] Stop: 01/01/19 08:59 Last Admin: 11/17/18 09:49 Dose: 20 mg Senna (Senna) 8.6 mg PO DAILY [facility] Stop: 12/10/18 08:59 Last Admin: 11/17/18 09:50 Dose: 8.6 mg Sitagliptin Phosphate (Januvia) 100 mg PO QDAC [facility] Stop: 12/10/18 07:29 Last Admin: 11/17/18 06:59 Dose: 100 mg Zolpidem Tartrate (Ambien) 5 mg PO HS PRN PRN Reason: Insomnia Stop: 12/09/18 18:50 Last Admin: 11/17/18 20:47 Dose: 5 mg Physical Exam: 68 y/o patient is gravely disabled and is still refusing care. Patient continues to be agitated and upset, states she wants to leave. Patient will continue to be treated and monitored. General: alert, obese, NAD HEENT: NC/AT, PERRLA Neck: Supple, No JVD Lungs: CTAB, other (no acute respiratory distress) Cardiovascular: other (regularly irregular) Abdomen: soft, non-tender Extremities: other (back sores, healing slowly.) Neurological: no change, bedbound Internal Medicine Assmt/Plan - Assessment Assessment: Refusing Care 5150 Hold. Diabetes. Afib. Bipolar disorder. Depressed mood. Irritated. Anxiety. Copd. Hypertension. Overactive bladder. Osteoarthritis. Pressure sores. - Plan Plan: Continuation of care. Psych followup/management. Monitor Labs. Continue present meds as directed. Monitor Diet/Nutritional support. Local skin care and wound care. Pain Management. Physical therapy. Occupational therapy. Safety precaution. Supportive care. Fall precaution, frequent nursing rounds, and as needed restraints to prevent fall. Continue collaborating with consulting specialists, case management and nursing team. Will Monitor patient and continue present care management. Nutritional Asmnt/Malnutr-PDOC - Dietary Evaluation Malnutrition Findings (Please click <Entered> for more info): Nutritional Asmnt/Malnutrition Start: 10/11/18 14: 22 Text: Status: Complete Freq: Protocol: Document 10/11/18 14:22 JENNIFERG (Rec: 10/11/18 14:31 DILAN [email or web address]) Nutritional Asmnt/Malnutrition Patient General Information Nutritional Screening High Risk Diagnosis psychosis Pertinent Medical Hx/Surgical Hx HTN, DM, asthma/COPD, arthritis, afib, knee and rt shoulder surger, csection Subjective Information Pt seen eating lunch in bed at time of visit. Food preference provided to RD. Pt asked for real sugar. Explained to pt that she is on [facility] diet and the benifits for diabetes. Pt stated her blood sugar is fine. Glucose 270 at admission noted. Pt appeared not interested in diabetic education. Per EMR, pt consumed 50% of breakfast today. Current Diet Order/ Nutrition Support [facility] Pertinent Medications vit C, colace, glucophage, protonix, senna, januvia Pertinent Labs 10/10 glucose 270 Nutritional Hx/Data Height 1.68 m Height (Calculated Centimeters) 167.6 Current Weight (lbs) 113.398 kg Weight (Calculated Kilograms) 113.4 Weight (Calculated Grams) 540776.1 [place] Body Weight 130 Body Mass Index (BMI) 40.3 Weight Status Morbidly Obese GI Symptoms GI Symptoms None Last BM none Difficult in: None Skin Integrity/Comment: RT. knee surgery scar,redness to coccyx area mitul 15 Estimated Nutritional Goals BEE in Kcals: Adj wt of IBW Calories/Kcals/Kg 25-30 Kcals Calculated 4283-4293 Protein: Adj wt of IBW Protein g/k Protein Calculated 73 Fluid: ml 1825-2190ml (1ml/kcal) Nutritional Problem 1. Problem Problem altered nutrition related labs Etiology hyperglycemia Signs/Symptoms: gluocse 270 at admission Malnutrition Alert Is there a minimum of two criteria No selected? Query Text:Check all the applicable criteria. A minimum of two criteria are recommended for diagnosis of either severe or non-severe malnutrition. Malnutrition Related to Morbid Obesity Malnutrition related to morbid obesity No Intervention/Recommendation Comments 1. Continue with [facility] diet as ordered. Diet preference updated. 2. Monitor PO intake, wt, labs and skin integrity 3. F/U as low risk in 7 days Expected Outcomes/Goals Expected Outcomes/Goals 1. PO intake to meet at least 75% of nutritional needs. 2. Wt stability, skin to remain intact, labs to approach WNL.
[2018-11-18] MEDS: APAP/Oxycodone 5/325mg Tab PO PRN ×3 (04:46→12:40)
[2018-11-18] MEDS: INSULIN LISPRO SLIDING SCALE 100 UNITS/ML UNIT SUBQ SCH ×2 (06:39→11:23)
[2018-11-18] MEDS: Pantoprazole 40 mg EC Tab PO SCH (08:25)
[2018-11-18] MEDS: Multivitamin w/ Minerals Tab PO SCH (08:26)
[2018-11-18] MEDS: Aspirin 81mg Chewable Tab PO SCH (08:27)
--- NOTE | 2018-11-18 13:15 | Internal Medicine Prog Note ---
Internal Medicine Subjective - Subjective Service Date: 11/18/18 Patient is:: awake, verbal, interactive, in bed, talking, other (poor insight, demanding and in irritable mood.) Patient Complaints of:: other (very depressed and irrittable.) Per staff patient has:: no adverse event, no episodes of fall Internal Medicine Objective - Results Result Diagrams: 10/10/18 13:08 10/10/18 13:08 Recent Labs: Laboratory Last Values WBC 7.0 Th/cmm (4.8-10.8) 10/10/18 13:08 RBC 4.00 Mil/cmm (3.80-5.20) 10/10/18 13:08 Hgb 9.9 gm/dL (12-16) L 10/10/18 13:08 Hct 29.9 % (41.0-60) L 10/10/18 13:08 MCV 74.6 fl (81-100) L 10/10/18 13:08 MCH 24.6 pg (27.0-31.0) L 10/10/18 13:08 MCHC Differential 33.0 pg (28.0-36.0) 10/10/18 13:08 RDW 14.6 % (11.5-20.0) 10/10/18 13:08 Plt Count 273 Th/cmm (150-400) 10/10/18 13:08 MPV 6.4 fl 10/10/18 13:08 Neutrophils % 71.8 % (40.0-80.0) 10/10/18 13:08 Lymphocytes % 18.6 % (20.0-50.0) L 10/10/18 13:08 Monocytes % 7.6 % (2.0-10.0) 10/10/18 13:08 Eosinophils % 1.3 % (0.0-5.0) 10/10/18 13:08 Basophils % 0.7 % (0.0-2.0) 10/10/18 13:08 Sodium 137 mEq/L (136-145) 10/10/18 13:08 Potassium 3.9 mEq/L (3.5-5.1) 10/10/18 13:08 Chloride 104 mEq/L (98-107) 10/10/18 13:08 Carbon Dioxide 24.9 mEq/L (21.0-31.0) 10/10/18 13:08 Anion Gap 12.0 (7.0-16.0) 10/10/18 13:08 BUN 16 mg/dL (7-25) 10/10/18 13:08 Creatinine 1.0 mg/dL (0.6-1.2) 10/10/18 13:08 Est GFR ( Amer) > 60.0 ml/min (>90) 10/10/18 13:08 Est GFR (Non-Af Amer) 58.8 ml/min 10/10/18 13:08 BUN/Creatinine Ratio 16.0 10/10/18 13:08 Glucose 270 mg/dL (70-105) H 10/10/18 13:08 POC Glucose 191 MG/DL (70 - 105) H 11/18/18 11:16 Calcium 9.0 mg/dL (8.6-10.3) 10/10/18 13:08 Total Bilirubin 0.3 mg/dL (0.3-1.0) 10/10/18 13:08 AST 19 U/L (13-39) 10/10/18 13:08 ALT 17 U/L (7-52) 10/10/18 13:08 Alkaline Phosphatase 87 U/L (34-104) 10/10/18 13:08 Total Protein 6.3 gm/dL (6.0-8.3) 10/10/18 13:08 Albumin 3.7 gm/dL (3.7-5.3) 10/10/18 13:08 Globulin 2.6 gm/dL 10/10/18 13:08 Albumin/Globulin Ratio 1.4 (1.0-1.8) 10/10/18 13:08 Urine Source CLEAN C 10/10/18 13:34 Urine Color YELLOW 10/10/18 13:34 Urine Clarity CLEAR (CLEAR) 10/10/18 13:34 Urine pH 5.5 (4.6 - 8.0) 10/10/18 13:34 Ur Specific Loiza 1.025 (1.005-1.030) 10/10/18 13:34 Urine Protein NEGATIVE mg/dL (NEGATIVE) 10/10/18 13:34 Urine Glucose (UA) NEGATIVE mg/dL (NEGATIVE) 10/10/18 13:34 Urine Ketones NEGATIVE mg/dL (NEGATIVE) 10/10/18 13:34 Urine Blood NEGATIVE (NEGATIVE) 10/10/18 13:34 Urine Nitrate NEGATIVE (NEGATIVE) 10/10/18 13:34 Urine Bilirubin NEGATIVE (NEGATIVE) 10/10/18 13:34 Urine Urobilinogen 0.2 E.U./dL (0.2 - 1.0) 10/10/18 13:34 Ur Leukocyte Esterase NEGATIVE (NEGATIVE) 10/10/18 13:34 Urine RBC 0-2 /hpf (0-5) 10/10/18 13:34 Urine WBC 2-5 /hpf (0-5) 10/10/18 13:34 Ur Epithelial Cells MODERATE /lpf (FEW) 10/10/18 13:34 Urine Bacteria FEW /hpf (NONE SEEN) 10/10/18 13:34 - Physical Exam Vitals and I&O: Vital Signs Temp 97.6 F 11/17/18 20:00 Pulse 61 11/18/18 08:29 Resp 18 11/17/18 20:00 BP 131/66 11/18/18 08:25 Pulse Ox 97 11/17/18 20:00 Intake & Output 11/17/18 11/18/18 11/18/18 18:59 06:59 18:59 Intake Total 1200 120 Balance 1200 120 Intake: Oral 1200 120 Other: # Voids 3 # Bowel Movements 1 Active Medications: Current Medications Acetaminophen (Tylenol) 650 mg PO Q4HR PRN PRN Reason: Mild Pain / Temp above 100 Stop: 12/09/18 19:59 Amiodarone HCl (Cordarone) 200 mg PO BID [facility] Stop: 12/10/18 08:59 Last Admin: 11/18/18 08:26 Dose: 200 mg Amlodipine Besylate (Norvasc) 10 mg PO DAILY [facility] Stop: 12/10/18 08:59 Last Admin: 11/18/18 08:25 Dose: 10 mg Ascorbic Acid (Vitamin C) 500 mg PO DAILY [facility] Stop: 12/10/18 08:59 Last Admin: 11/18/18 08:27 Dose: 500 mg Aspirin (Aspirin Chewable) 81 mg PO DAILY [facility] Stop: 12/10/18 08:59 Last Admin: 11/18/18 08:27 Dose: 81 mg Dextrose (D50w) 50 ml IVP PRN PRN PRN Reason: BS below 70&not tolerate po Stop: 12/10/18 10:24 Dextrose (Glutose 40%) 18.75 gm PO PRN PRN PRN Reason: BS below 70 & tolerate po Stop: 12/10/18 10:24 Digoxin (Lanoxin) 0.25 mg PO DAILY [facility] Stop: 12/10/18 08:59 Last Admin: 11/18/18 08:29 Dose: 0.25 mg Docusate Sodium (Colace) 100 mg PO BID [facility] Stop: 12/10/18 08:59 Last Admin: 11/18/18 08:26 Dose: 100 mg Escitalopram Oxalate (Lexapro) 20 mg PO DAILY [facility]; Protocol Stop: 12/10/18 08:59 Last Admin: 11/18/18 08:28 Dose: 20 mg Glucagon (Glucagen) 1 mg IM PRN PRN PRN Reason: BS below 70&dextrose ineffecti Stop: 12/10/18 10:24 Insulin Human Lispro (Humalog Insulin Sliding Scale) 0 units SUBQ ACHS [facility]; Protocol Stop: 12/10/18 11:29 Last Admin: 11/18/18 11:23 Dose: 2 units Lorazepam (Ativan) 0.5 mg PO Q4H PRN; Protocol PRN Reason: Anxiety Stop: 12/09/18 19:59 Metformin HCl (Glucophage) 500 mg PO BIDWM [facility] Stop: 12/10/18 07:59 Last Admin: 11/18/18 08:27 Dose: 500 mg Oxybutynin Chloride (Ditropan) 5 mg PO DAILY [facility] Stop: 12/10/18 08:59 Last Admin: 11/18/18 08:28 Dose: 5 mg Oxycodone/Acetaminophen (Percocet 5/325mg Oral Tab) 1 tab PO Q4H PRN PRN Reason: Severe Pain Stop: 12/31/18 16:54 Last Admin: 11/18/18 12:40 Dose: 1 tab Pantoprazole Sodium (Protonix) 40 mg PO DAILY [facility] Stop: 12/22/18 08:59 Last Admin: 11/18/18 08:25 Dose: 40 mg Quetiapine Fumarate 100 mg/ (Quetiapine Fumarate 50 mg) 150 mg PO HS [facility] Stop: 12/20/18 20:59 Last Admin: 11/17/18 20:47 Dose: 150 mg Rivaroxaban (Xarelto) 20 mg PO DAILY [facility] Stop: 01/01/19 08:59 Last Admin: 11/18/18 08:28 Dose: 20 mg Senna (Senna) 8.6 mg PO DAILY [facility] Stop: 12/10/18 08:59 Last Admin: 11/18/18 08:24 Dose: 8.6 mg Sitagliptin Phosphate (Januvia) 100 mg PO QDAC [facility] Stop: 12/10/18 07:29 Last Admin: 11/18/18 06:40 Dose: Not Given Zolpidem Tartrate (Ambien) 5 mg PO HS PRN PRN Reason: Insomnia Stop: 12/09/18 18:50 Last Admin: 11/17/18 20:47 Dose: 5 mg General: alert, obese HEENT: NC/AT, PERRLA Neck: Supple, No JVD Lungs: CTAB, other (no acute respiratory distress) Cardiovascular: other (regularly irregular) Abdomen: soft, non-tender Extremities: other (back sores, healing slowly.) Neurological: no change, bedbound Internal Medicine Assmt/Plan - Assessment Assessment: Refusing Care 5150 Hold. Diabetes. Afib. Bipolar disorder. Depressed mood. Anxiety. Copd. Hypertension. Osteoarthritis. Pressure sores. - Plan Plan: fall precautions cpm Nutritional Asmnt/Malnutr-PDOC - Dietary Evaluation Malnutrition Findings (Please click <Entered> for more info): Nutritional Asmnt/Malnutrition Start: 10/11/18 14: 22 Text: Status: Complete Freq: Protocol: Document 10/11/18 14:22 LCHAILEYG (Rec: 10/11/18 14:31 LCHAILEYG [email or web address]) Nutritional Asmnt/Malnutrition Patient General Information Nutritional Screening High Risk Diagnosis psychosis Pertinent Medical Hx/Surgical Hx HTN, DM, asthma/COPD, arthritis, afib, knee and rt shoulder surger, csection Subjective Information Pt seen eating lunch in bed at time of visit. Food preference provided to RD. Pt asked for real sugar. Explained to pt that she is on [facility] [place] diet and the benifits for diabetes. Pt stated her blood sugar is fine. Glucose 270 at admission noted. Pt appeared not interested in diabetic education. Per EMR, pt consumed 50% of breakfast today. Current Diet Order/ Nutrition Support [facility] [place] Pertinent Medications vit C, colace, glucophage, protonix, senna, januvia Pertinent Labs 10/10 glucose 270 Nutritional Hx/Data Height 5 ft 6 in Height (Calculated Centimeters) 167.6 Current Weight (lbs) 250 lb Weight (Calculated Kilograms) 113.4 Weight (Calculated Grams) 800150.1 [place] Body Weight 130 Body Mass Index (BMI) 40.3 Weight Status Morbidly Obese GI Symptoms GI Symptoms None Last BM none Difficult in: None Skin Integrity/Comment: RT. knee surgery scar,redness to coccyx area mitul 15 Estimated Nutritional Goals BEE in Kcals: Adj wt of IBW Calories/Kcals/Kg 25-30 Kcals Calculated 7837-4966 Protein: Adj wt of IBW Protein g/k Protein Calculated 73 Fluid: ml 1825-2190ml (1ml/kcal) Nutritional Problem 1. Problem Problem altered nutrition related labs Etiology hyperglycemia Signs/Symptoms: gluocse 270 at admission Malnutrition Alert Is there a minimum of two criteria No selected? Query Text:Check all the applicable criteria. A minimum of two criteria are recommended for diagnosis of either severe or non-severe malnutrition. Malnutrition Related to Morbid Obesity Malnutrition related to morbid obesity No Intervention/Recommendation Comments 1. Continue with [facility] [place] diet as ordered. Diet preference updated. 2. Monitor PO intake, wt, labs and skin integrity 3. F/U as low risk in 7 days Expected Outcomes/Goals Expected Outcomes/Goals 1. PO intake to meet at least 75% of nutritional needs. 2. Wt stability, skin to remain intact, labs to approach WNL.
--- NOTE | 2018-11-19 02:30 | Progress Notes ---
DATE: 11/18/2018 SUBJECTIVE: Chart reviewed and the patient interviewed. Also discussed the patient's condition with the staff and reviewed records and labs. I also spoke with registered account administrator of [facility] where the patient is supposed to return. The patient is calm and cooperative. The patient is less irritable and less agitated, but she is still in a depressed mood for her hospital long stay. She also is still trying to cooperate with the staff in regard to her physical therapy or her cleaning and ADLs. The patient also compliant with taking her medications and the patient has no side effects of medications. ASSESSMENT: The patient is still anxious and depressed and waiting for placement. TREATMENT PLAN: Although [facility] accepted back, a female bed is not available yet. We will continue monitoring behavior and continue working on her placement issue and discharge plans. JOB# [id number]
--- NOTE | 2018-11-19 11:04 | Discharge Summary ---
DATE OF DISCHARGE: 11/18/2018 PATIENT'S AGE: 68. SEX: Female. PHYSICIAN: Aranza Solomon M.D., M.P.H. FINAL DIAGNOSIS: PRIMARY DIAGNOSIS: Depressive mood disorder, severe, with psychotic features. REASON FOR HOSPITALIZATION: The patient was admitted to the hospital because of increased agitation and irritability and noncompliant with treatment recommendations in [facility] and the patient was placed on a hold for grave disability and brought into the hospital. HOSPITAL COURSE: The patient continued to be resisting care and also careless about her blood sugar and her diabetes and also about physical therapy after having a knee surgery. The patient also was interacting minimally with others. The patient also was more angry. Gradually, the patient was calmer and more cooperative, but the patient did not have a placement and in the beginning [place] did not want to accept the patient for her history of her behavior, but later on after evaluating the patient, they decided to take the patient back. The patient was able to return to [place]. The patient was not suicidal or homicidal, and was more cooperative with her treatment and she was agreeable to continue her treatment. The patient was compliant with taking her medications and the patient was not suicidal or homicidal. The patient had no major medical problems while in the hospital. AFTER DISCHARGE PLANS: The patient discharged from the hospital to [facility] with plans to follow her up there. EXPECTED OUTCOME AFTER DISCHARGE: Guarded because of her history of noncompliance with treatment recommendations, but the patient will have better prognosis if she continues with her outpatient treatment and follow up with discharge plans and is called to be cooperative with her treatment. [facility]# [id number]
== END 2018-11-18 15:00 | DRG 885 ==
LOC: ER 12:53 → GERO 15:23
PROVIDERS: ADMIT Psychiatry & Neurology Psychiatry; ATTEND Psychiatry & Neurology Psychiatry
DX: F31.5 Bipolar disorder, current episode depressed, severe, with psychotic features (principal); F23 Brief psychotic disorder; E11.9 Type 2 diabetes mellitus without complications; I48.91 Unspecified atrial fibrillation; J44.9 Chronic obstructive pulmonary disease, unspecified; I10 Essential (primary) hypertension; M19.90 Unspecified osteoarthritis, unspecified site; F41.9 Anxiety disorder, unspecified; N32.81 Overactive bladder; G89.4 Chronic pain syndrome; Z79.4 Long term (current) use of insulin; Z88.0 Allergy status to penicillin
CPT/HCPCS: 36415-UA; 80053-TC; 81001-TC; 82948-90; 83036-90; 85025-TC; 97530; X3904; Z7610

== ENCOUNTER 2019-08-31 21:31 | Inpatient (IN) | payer MEDICARE, BC ==
[2019-09-01 00:55] VITALS: BP 141/67
[2019-09-01] MEDS ORDERED: Magnesium Hydroxide (MOM) 30 mL UDC PO PRN (00:55)
[2019-09-01] MEDS ORDERED: Maalox 30 mL Cup PO PRN (00:55)
[2019-09-01] MEDS: Guaifenesin DM 10 ML UDC PO SCH ×4 (07:04→23:37)
[2019-09-01] MEDS ORDERED: GLUCAGON HCl 1 MG KIT IM PRN (07:12)
[2019-09-01] MEDS: INSULIN LISPRO SLIDING SCALE 100 UNITS/ML UNIT SUBQ SCH ×4 (07:30→20:50)
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
[2019-09-01] MEDS ORDERED: Non-Formulary Item 1 EA (Cranberry Fruit Concentrate [Cranberry] 450 MG) PO SCH (09:00)
[2019-09-01] MEDS: Multivitamin w/ Minerals Tab PO SCH (10:15)
[2019-09-01] MEDS: Aspirin 81mg Chewable Tab PO SCH (11:05)
[2019-09-01] MEDS: APAP/Oxycodone 5/325mg Tab PO PRN ×3 (11:34→21:14)
--- NOTE | 2019-09-01 16:44 | History & Physical ---
ADMIT DATE: 09/01/2019 CHIEF COMPLAINT: Transfer from [facility] who is medically clear. HISTORY OF PRESENT ILLNESS: This is a 69-year-old female, who is a resident of [facility] who was admitted here to the Geropsych Unit due to agitation and aggressive behavior towards nursing staff. PAST MEDICAL HISTORY: AFib, hypertension, obesity, type 2 diabetes, psychosis, DVT. PAST SURGICAL HISTORY: Unknown. ALLERGIES: PENICILLIN. SOCIAL HISTORY: The patient is a intermediate resident. REVIEW OF SYSTEMS: GENERAL: Denies any fever or chills. CARDIOVASCULAR: Denies chest pain. RESPIRATORY: Denies shortness of breath. GASTROINTESTINAL: Denies nausea, vomiting, abdominal pain. GENITOURINARY: Denies increased frequency. NEUROLOGIC: No seizures or syncope. All systems reviewed and negative. PHYSICAL EXAMINATION: EXTREMITIES: The patient is an obese female, awake, agitated, in no apparent distress. VITAL SIGNS: Temperature 97.4, heart rate 71, blood pressure 137/68, respirations 18, O2 97%. HEENT: Head; normocephalic, atraumatic. NECK: Supple. No mass. LUNGS: Clear bilaterally. ABDOMEN: Soft, nontender, nondistended. ASSESSMENT: Psychosis, history of atrial fibrillation, history of deep venous thrombosis, type 2 diabetes, medical noncompliance, hypertension and aggressive behavior. PLAN: Fall precautions will be initiated. Continue sliding scale per protocol, diabetic and cardiac diet. We will continue to monitor this patient daily. JOB# [id number]
[2019-09-02] MEDS: Guaifenesin DM 10 ML UDC PO SCH ×3 (06:00→17:24)
[2019-09-02] MEDS: INSULIN LISPRO SLIDING SCALE 100 UNITS/ML UNIT SUBQ SCH ×3 (07:26→21:08)
[2019-09-02] MEDS: Multivitamin w/ Minerals Tab PO SCH (09:14)
[2019-09-02] MEDS: Aspirin 81mg Chewable Tab PO SCH (09:15)
[2019-09-02] MEDS: APAP/Oxycodone 5/325mg Tab PO PRN ×2 (09:29→21:28)
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
[2019-09-02] MEDS ORDERED: Septra IV Per Pharmacy MC SCH (17:00)
[2019-09-02] MEDS: Sulfamethoxazole/TMP 800/160mg Tab PO SCH (18:28)
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
[2019-09-03] MEDS: APAP/Oxycodone 5/325mg Tab PO PRN ×5 (06:51→22:57)
[2019-09-03] MEDS: Guaifenesin DM 10 ML UDC PO SCH ×5 (06:52→14:45)
[2019-09-03] MEDS: INSULIN LISPRO SLIDING SCALE 100 UNITS/ML UNIT SUBQ SCH ×4 (06:52→20:34)
[2019-09-03] MEDS: Multivitamin w/ Minerals Tab PO SCH (09:07)
[2019-09-03] MEDS: Aspirin 81mg Chewable Tab PO SCH (09:07)
[2019-09-03] MEDS: Sulfamethoxazole/TMP 800/160mg Tab PO SCH ×2 (09:10→16:45)
--- NOTE | 2019-09-03 10:42 | Progress Notes ---
DATE: 09/03/2019 SUBJECTIVE: The patient was seen in her room. The patient appears to be irritable with poor impulse control and uncooperative. Otherwise, the patient appears to be in no acute distress. OBJECTIVE: VITAL SIGNS: Temperature 97.6, heart rate 70, blood pressure 143/79, respirations 20, 96% on room air. HEENT: Head is atraumatic, normocephalic. Eyes: Bilateral conjunctivae are clear. Bilateral pupils are equally round and reactive. NECK: Supple. No JVD. CARDIOVASCULAR: S1 and S2, without murmur. PULMONARY: Clear to auscultation. GASTROINTESTINAL: Soft and nontender without guarding. Positive bowel sounds. MUSCULOSKELETAL: No clubbing, no cyanosis noted. ASSESSMENT: 1. Bipolar disorder. 2. Hypertension. 3. Atrial fibrillation. 4. Chronic pain syndrome. 5. Diabetes. PLAN: We will continue to keep the patient inpatient to Psychiatric Unit. We will follow up with a psychiatrist to monitor the patient's condition and behavior. Treatment plans were discussed with the patient's nurse. Treatment plans were discussed with Dr. Lewis. JOB# [id number]
--- NOTE | 2019-09-03 10:53 | Progress Notes ---
DATE: 09/03/2019 SUBJECTIVE: The patient was seen in her room. The patient is still agitated, frustrated, poor impulse control, and very irritable. The patient is still uncooperative and does not want to answer any questions. Otherwise, the patient appears to be in no acute distress. OBJECTIVE: VITAL SIGNS: Temperature 97.1, heart rate 66, blood pressure 139/67, respirations 20, 95% on room air. HEENT: Head is atraumatic, normocephalic. Eyes: Bilateral conjunctivae are clear. Bilateral pupils are equally round and reactive. NECK: Supple. No JVD. CARDIOVASCULAR: S1 and S2, without murmur. PULMONARY: Clear to auscultation. GASTROINTESTINAL: Soft and nontender without guarding. Positive bowel sounds. MUSCULOSKELETAL: No clubbing. No cyanosis noted. ASSESSMENT: 1. Bipolar disorder. 2. Hypertension. 3. Atrial fibrillation. 4. Chronic pain syndrome. 5. Diabetes. 6. Overactive bladder. PLAN: We will continue to keep the patient inpatient to Psychiatric Unit. We will follow up with a psychiatrist to monitor the patient's condition and behavior. Treatment plans were discussed with the patient's nurse. Treatment plans were discussed with Dr. Lewis. JOB# [id number]
[2019-09-04] MEDS: Guaifenesin DM 10 ML UDC PO SCH ×5 (00:15→18:04)
[2019-09-04] MEDS: APAP/Oxycodone 5/325mg Tab PO PRN ×3 (05:49→21:30)
[2019-09-04] MEDS: INSULIN LISPRO SLIDING SCALE 100 UNITS/ML UNIT SUBQ SCH ×4 (06:39→20:44)
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
[2019-09-04] MEDS: Multivitamin w/ Minerals Tab PO SCH (09:56)
[2019-09-04] MEDS: Aspirin 81mg Chewable Tab PO SCH (09:56)
[2019-09-04] MEDS: Sulfamethoxazole/TMP 800/160mg Tab PO SCH ×2 (09:58→18:04)
--- NOTE | 2019-09-04 22:43 | Internal Medicine Prog Note ---
Internal Medicine Subjective - Subjective Patient is:: awake, verbal, interactive Per staff patient has:: no adverse event, no episodes of fall, agitated Internal Medicine Objective - Results Recent Labs: Laboratory Last Values POC Glucose 210 MG/DL (70 - 105) H 09/04/19 20:06 - Physical Exam Vitals and I&O: Vital Signs Temp 96.8 F 09/04/19 20:00 Pulse 69 09/04/19 20:00 Resp 19 09/04/19 20:00 BP 150/79 09/04/19 20:00 Pulse Ox 96 09/04/19 20:00 Intake & Output 09/04/19 09/04/19 09/05/19 06:59 18:59 06:59 Intake Total 720 900 240 Output Total 1 Balance 719 900 240 Intake: Oral 720 900 240 Output: Urine/Stool Mix 1 Other: # Voids 2 4 3 # Bowel Movements 0 0 0 Stool Characteristics Formed Active Medications: Current Medications Acetaminophen (Tylenol) 650 mg PO Q4H PRN PRN Reason: Pain (Mild 1-3) Stop: 10/31/19 00:54 Acetaminophen (Tylenol) 650 mg PO Q4HR PRN PRN Reason: Mild Pain / Temp above 100 Stop: 10/31/19 07:11 Last Admin: 09/04/19 12:10 Dose: 650 mg Al Hydrox/Mg Hydrox/Simethicone (Maalox) 30 ml PO Q4HR PRN PRN Reason: GI DISTRESS Stop: 10/31/19 00:54 Amiodarone HCl (Cordarone) 100 mg PO BID [facility] Stop: 10/31/19 08:59 Last Admin: 09/04/19 18:03 Dose: 100 mg Amlodipine Besylate (Norvasc) 10 mg PO DAILY [facility] Stop: 10/31/19 08:59 Last Admin: 09/04/19 09:54 Dose: 10 mg Ascorbic Acid (Vitamin C) 500 mg PO DAILY [facility] Stop: 10/31/19 08:59 Last Admin: 09/04/19 09:55 Dose: 500 mg Aspirin (Aspirin Chewable) 81 mg PO DAILY [facility] Stop: 10/31/19 08:59 Last Admin: 09/04/19 09:56 Dose: 81 mg Dextrose (Glutose 40%) 18.75 gm PO PRN PRN PRN Reason: BS below 70 & tolerate po Stop: 10/31/19 07:11 Digoxin (Lanoxin) 0.25 mg PO DAILY [facility] Stop: 10/31/19 08:59 Last Admin: 09/04/19 09:56 Dose: 0.25 mg Docusate Sodium (Colace) 100 mg PO BID [facility] Stop: 10/31/19 08:59 Last Admin: 09/04/19 18:04 Dose: 100 mg Escitalopram Oxalate (Lexapro) 10 mg PO DAILY [facility]; Protocol Stop: 10/31/19 08:59 Last Admin: 09/04/19 09:56 Dose: 10 mg Glucagon (Glucagen) 1 mg IM PRN PRN PRN Reason: BS below 70&dextrose ineffecti Stop: 10/31/19 07:11 Guaifenesin/Dextromethorphan (Robitussin Dm) 10 ml PO Q6HR [facility] Stop: 09/14/19 05:59 Last Admin: 09/04/19 18:04 Dose: 10 ml Insulin Human Lispro (Humalog Insulin Sliding Scale) 0 units SUBQ [facility]; Protocol Stop: 10/31/19 07:29 Last Admin: 09/04/19 20:44 Dose: 4 units Lorazepam (Ativan) 0.5 mg PO Q4HR PRN; Protocol PRN Reason: Anxiety Stop: 10/01/19 00:54 Last Admin: 09/01/19 23:37 Dose: 0.5 mg Magnesium Hydroxide (Milk Of Magnesia) 30 ml PO HS PRN PRN Reason: Constipation Metformin HCl (Glucophage) 500 mg PO BIDWM [facility] Stop: 10/31/19 07:59 Last Admin: 09/04/19 18:04 Dose: 500 mg Mupirocin (Bactroban Oint) 1 appl NS BID [facility] Stop: 09/07/19 09:01 Last Admin: 09/04/19 18:04 Dose: 1 appl Oxybutynin Chloride (Ditropan) 5 mg PO DAILY [facility] Stop: 10/31/19 08:59 Last Admin: 09/04/19 09:57 Dose: 5 mg Oxycodone/Acetaminophen (Percocet 5/325mg Oral Tab) 1 tab PO Q4H PRN PRN Reason: Severe Pain Stop: 10/31/19 07:11 Last Admin: 09/04/19 21:30 Dose: 1 tab Quetiapine Fumarate (Seroquel) 75 mg PO HS JASEN; Protocol Stop: 11/03/19 20:59 Last Admin: 09/04/19 20:44 Dose: Not Given Rivaroxaban (Xarelto) 20 mg PO DAILY [facility] Stop: 10/31/19 08:59 Last Admin: 09/04/19 09:57 Dose: 20 mg Senna (Senna) 17.2 mg PO DAILY [facility] Stop: 10/31/19 08:59 Last Admin: 09/04/19 09:57 Dose: 17.2 mg Sitagliptin Phosphate (Januvia) 100 mg PO QDAC [facility] Stop: 10/31/19 07:29 Last Admin: 09/04/19 09:53 Dose: 100 mg Trimethoprim/Sulfamethoxazole (Bactrim Iv Per Pharmacy) 1 ea MC BID [facility] Stop: 11/01/19 16:59 Trimethoprim/Sulfamethoxazole (Bactrim Ds) 1 tab PO BID [facility] Stop: 11/01/19 16:59 Last Admin: 09/04/19 18:04 Dose: 1 tab Zolpidem Tartrate (Ambien) 5 mg PO HS PRN PRN Reason: Insomnia Stop: 10/31/19 00:54 Last Admin: 09/03/19 20:34 Dose: 5 mg General: NAD HEENT: NC/AT, PERRLA Neck: Supple, No JVD Lungs: other (no acute respiratory distress) Cardiovascular: Normal S1, Normal S2 Abdomen: soft, non-tender, non-distended Neurological: no change Internal Medicine Assmt/Plan - Assessment Assessment: Bipolar disroder HTN Afib Chronic pain syndrome DM OAB - Plan Plan: Continue current treatment Fall and Safety precautions Psychiatry for psych management Continue to monitor VS, IO Pain as needed Continue to collaborate with interdisciplinary team. Nutritional Asmnt/Malnutr-PDOC - Dietary Evaluation Malnutrition Findings (Please click <Entered> for more info): Nutritional Asmnt/Malnutrition Start: 09/03/19 17: 31 Text: Status: Complete Freq: Protocol: Document 09/03/19 17:40 MARCELO (Rec: 09/03/19 17:44 MARCELO [email or web address]) Nutritional Asmnt/Malnutrition Patient General Information Nutritional Screening Moderate Risk Diagnosis Psychosis Pertinent Medical Hx/Surgical Hx AFib, HTN, Obesity, DMT2, Psychosis, DVT Subjective Information Pt is a 69-year-old female admitted on 08/30 d/t agitation and aggressive behavior. Pt is eating an estimated 80% of meals since admit date (x3 days) Per Meal/Nutrition Activity Record. Dietary is currently providing an estimated 1600 kcals and 80 gm Pro, per Pt PO intake this is providing an estimated 1280 kcals and 64gm Pro to meet 85% kcal and 100% Pro needs. Pt refused dinner on first night here but has eaten 100% meals since dietitian visit and food preferences recorded. Visited pt in room in late afternoon, she was very alert and fully oriented, very pleasant. Made a few food requests and was alright with her diet once it was explained to her. Pt stated she is missing a few teeth but has no problem chewing and would like to eat cold cereal. Relayed information to pt RN Andrew. Pt requested a snack which I brought to her with some more water. Recommend diet modification to include cardiac d/t morbid obesity, BMI > 40, %IBW > 200% . Spoke with pt nurse Andrew regarding diet Rx recommendation (completed). Anthropometrics HT: 56 WT: 274 LB (124.55 kg) ABW: 166 LB (75.45 kg) BMI: 44.22 (Obese, class III) GI/ Skin Integrity GI: WNL, Soft, Non-tender, Large, Round BM: Not Noted I/O: 1380/Not Noted Skin: WNL, Bruises, Rash Kumar: 14 Diet Order: Mechanical Soft, CCHO 60gm, MONET Estimated Energy Needs: (Obese , ABW) 8705-4602 kcals (20-25 kcals/ kg) 60-75g Pro (0.8-1.0 g/kg) 8109-1334 ml (20-25 ml/kg) Current Diet Order/ Nutrition Support CCHO 60gm, Cardiac Pertinent Medications Maalox (PRN), Cordarone, Vitamin C, Glutose 40% (PRN), Colace, Glucagen (PRN), INS-SS , MOM (PRN), Glucophage, Senna , Januvia Pertinent Labs POC glucose (last 24 hours): 168, 201, 143 08/30: GFR 48, Glucose 182 Nutritional Hx/Data Height 5 ft 6 in Height (Calculated Centimeters) 167.6 Current Weight (lbs) 274 lb Weight (Calculated Kilograms) 124.3 Weight (Calculated Grams) 428443.3 [place] Body Weight 130 LB (59.09 kg) % Yeso Body Weight 211 Body Mass Index (BMI) 44.2 Weight Status Morbidly Obese GI Symptoms Last BM Not noted Skin Integrity/Comment: Kumar: 14 Pt bedbound, bruises and rash- no open wounds. Estimated Nutritional Goals BEE in Kcals: Adj wt of IBW Calories/Kcals/Kg 20-25 Kcals Calculated 4520-3210 Protein: Adj wt of IBW Protein g/k.8-1.0 Protein Calculated 60-75 Fluid: ml 9060-8711 ml (20-25 ml/kg) Nutritional Problem 2. Problem Problem Impaired nutrient utilization Etiology r/t endocrine dysfunction Signs/Symptoms: aeb Hx DMT2, labs (08/30) Glucose 182. 1. Problem Problem Obesity Etiology r/t consistent energy overconsumption Signs/Symptoms: aeb BMI >40 (44.22 obese, class III). Malnutrition Related to Morbid Obesity Malnutrition related to morbid obesity Yes Intervention/Recommendation Comments 1.Recommend diet modification to include cardiac d/t morbid obesity, BMI > 40, %IBW > 200% (completed). 2.Continue antihyperglycemic medications for glucose control per MD order. Expected Outcomes/Goals Expected Outcomes/Goals 1.PO intake to continue to meet >75% of estimated nutritional needs. 2.Monitor PO intake, wt, nutrition related labs to tend WNL, and skin integrity. 3.Gradual weight loss (0.5-1.0 Lb/week) trending towards IBW preferred. 4.F/U as low risk in 7-10 days , 09/09-09/12
[2019-09-05] MEDS: Guaifenesin DM 10 ML UDC PO SCH ×4 (00:01→17:34)
[2019-09-05] MEDS: APAP/Oxycodone 5/325mg Tab PO PRN ×3 (05:31→20:42)
[2019-09-05] MEDS: INSULIN LISPRO SLIDING SCALE 100 UNITS/ML UNIT SUBQ SCH ×4 (06:51→21:00)
--- NOTE | 2019-09-05 07:33 | Progress Notes ---
DATE: 09/05/2019 SUBJECTIVE: Chart was reviewed and the patient interviewed. Also discussed the patient's condition with the staff and reviewed records and labs. The patient is still extremely angry and is still in irritable mood. The patient also is demanding and she is still cursing and yelling at the staff. The patient also is delusional and paranoid and "somebody is stealing money from my credit card and I need the phone to check." She also saying that she has lot of belongings in the [facility] that she is afraid that might be lost or stolen. At the same time, the patient is compliant with taking her medications with no side effects of medications. She is still easily irritable and agitated. The patient is lying in bed all the time. Vital signs are stable. No new labs available for review. MENTAL STATUS EXAMINATION: Anxious. Angry. Irritable mood. Thought processes are circumstantial with flight of ideas. The patient denies any auditory or visual hallucinations or delusions. She is severely paranoid. ASSESSMENT: The patient is still psychotic and agitated. TREATMENT PLAN: Continue to monitor behavior and condition closely. Also, we will increase Seroquel to 100 mg at bedtime. Also, working on discharge plans and on placement issue. ESTIMATED LENGTH OF STAY: 2-4 days. REASON FOR CONTINUED HOSPITAL STAY: The patient is still in angry and in irritable mood and also needs placement. JOB# [id number]
[2019-09-05] MEDS: Sulfamethoxazole/TMP 800/160mg Tab PO SCH ×2 (08:26→17:36)
[2019-09-05] MEDS: Multivitamin w/ Minerals Tab PO SCH (08:27)
[2019-09-05] MEDS: Aspirin 81mg Chewable Tab PO SCH (08:29)
[2019-09-05] MEDS ORDERED: Probiotic Screen MC PRN (13:15)
[2019-09-06] MEDS: Guaifenesin DM 10 ML UDC PO SCH ×4 (00:47→17:50)
[2019-09-06] MEDS: INSULIN LISPRO SLIDING SCALE 100 UNITS/ML UNIT SUBQ SCH ×4 (06:53→21:00)
[2019-09-06] MEDS: Lactobacillus Rhamnosus GG 15 Billion CFU CAP.SPRINK PO SCH (09:14)
[2019-09-06] MEDS: Sulfamethoxazole/TMP 800/160mg Tab PO SCH ×2 (09:14→17:07)
[2019-09-06] MEDS: Aspirin 81mg Chewable Tab PO SCH (09:15)
[2019-09-06] MEDS: Multivitamin w/ Minerals Tab PO SCH (09:15)
[2019-09-06] MEDS: APAP/Oxycodone 5/325mg Tab PO PRN ×3 (09:26→21:39)
--- NOTE | 2019-09-06 15:29 | Progress Notes ---
DATE: 09/06/2019 SUBJECTIVE: Chart was reviewed and the patient interviewed. Also discussed the patient's condition with the staff and reviewed records and labs. The patient seems to be in relatively better mood today and she is talking to me with less anger, but still histrionic and still has multiple complaints about "they took $400 from me here and they stole it". The patient also is marking the nurses and this nurse is good and this nurse is bad according to her judgment. She also is still manipulative and she is still angry and easily agitated. Otherwise, the patient is talking about going to another nursing facility other than [facility] and instructing the lining caser to help with placement in another senior living. The patient said that she used to live in __. The patient is staying in bed all the time. Vital signs are stable and no new labs available for review. MENTAL STATUS EXAMINATION: The patient is calm and talking to me with less angry tone of voice. Also trying to interact more. ASSESSMENT: The patient is still having episodes of agitation and manipulation. TREATMENT PLAN: Continue monitoring her behavior and working on behavioral modification. Also, continue adjusting psychotropic medications. Also, working on her discharge plans and placement issue. JOB# [id number]
--- NOTE | 2019-09-06 17:00 | Internal Medicine Prog Note ---
Internal Medicine Subjective - Subjective Service Date: 09/06/19 Patient is:: awake, verbal, interactive Per staff patient has:: no adverse event, no episodes of fall, agitated Internal Medicine Objective - Results Recent Labs: Laboratory Last Values POC Glucose 160 MG/DL (70 - 105) H 09/06/19 06:43 - Physical Exam Vitals and I&O: Vital Signs Temp 98.1 F 09/06/19 16:07 Pulse 70 09/06/19 16:07 Resp 18 09/06/19 16:07 BP 134/71 09/06/19 16:07 Pulse Ox 96 09/06/19 16:07 Intake & Output 09/05/19 09/06/19 09/06/19 18:59 06:59 18:59 Intake Total 1400 240 Balance 1400 240 Intake: Oral 1400 240 Other: # Voids 6 1 # Bowel Movements 0 Stool Characteristics Soft Formed Active Medications: Current Medications Acetaminophen (Tylenol) 650 mg PO Q4H PRN PRN Reason: Pain (Mild 1-3) Stop: 10/31/19 00:54 Acetaminophen (Tylenol) 650 mg PO Q4HR PRN PRN Reason: Mild Pain / Temp above 100 Stop: 10/31/19 07:11 Last Admin: 09/04/19 12:10 Dose: 650 mg Al Hydrox/Mg Hydrox/Simethicone (Maalox) 30 ml PO Q4HR PRN PRN Reason: GI DISTRESS Stop: 10/31/19 00:54 Amiodarone HCl (Cordarone) 100 mg PO BID [facility] Stop: 10/31/19 08:59 Last Admin: 09/06/19 09:13 Dose: 100 mg Amlodipine Besylate (Norvasc) 10 mg PO DAILY [facility] Stop: 10/31/19 08:59 Last Admin: 09/06/19 09:12 Dose: 10 mg Ascorbic Acid (Vitamin C) 500 mg PO DAILY [facility] Stop: 10/31/19 08:59 Last Admin: 09/06/19 09:14 Dose: 500 mg Aspirin (Aspirin Chewable) 81 mg PO DAILY [facility] Stop: 10/31/19 08:59 Last Admin: 09/06/19 09:15 Dose: 81 mg Dextrose (Glutose 40%) 18.75 gm PO PRN PRN PRN Reason: BS below 70 & tolerate po Stop: 10/31/19 07:11 Digoxin (Lanoxin) 0.25 mg PO DAILY [facility] Stop: 11/06/19 08:59 Docusate Sodium (Colace) 100 mg PO BID [facility] Stop: 10/31/19 08:59 Last Admin: 09/06/19 09:13 Dose: 100 mg Escitalopram Oxalate (Lexapro) 10 mg PO DAILY [facility]; Protocol Stop: 10/31/19 08:59 Last Admin: 09/06/19 09:11 Dose: 10 mg Glucagon (Glucagen) 1 mg IM PRN PRN PRN Reason: BS below 70&dextrose ineffecti Stop: 10/31/19 07:11 Guaifenesin/Dextromethorphan (Robitussin Dm) 10 ml PO Q6HR [facility] Stop: 09/14/19 05:59 Last Admin: 09/06/19 06:14 Dose: 10 ml Insulin Human Lispro (Humalog Insulin Sliding Scale) 0 units SUBQ [facility]; Protocol Stop: 10/31/19 07:29 Last Admin: 09/06/19 14:48 Dose: Not Given Lactobacillus Rhamnosus (Culturelle 15b) 1 each PO DAILY [facility] Stop: 11/05/19 08:59 Last Admin: 09/06/19 09:14 Dose: 1 each Lorazepam (Ativan) 0.5 mg PO Q4HR PRN; Protocol PRN Reason: Anxiety Stop: 10/01/19 00:54 Last Admin: 09/01/19 23:37 Dose: 0.5 mg Magnesium Hydroxide (Milk Of Magnesia) 30 ml PO HS PRN PRN Reason: Constipation Metformin HCl (Glucophage) 500 mg PO BIDWM [facility] Stop: 10/31/19 07:59 Last Admin: 09/06/19 07:41 Dose: 500 mg Miscellaneous (Probiotic Screen) 1 ea MC PRN PRN PRN Reason: PROTOCOL Stop: 11/04/19 13:14 Mupirocin (Bactroban Oint) 1 appl NS BID [facility] Stop: 09/07/19 09:01 Last Admin: 09/06/19 09:26 Dose: 1 appl Oxybutynin Chloride (Ditropan) 5 mg PO DAILY [facility] Stop: 10/31/19 08:59 Last Admin: 09/06/19 09:12 Dose: 5 mg Oxycodone/Acetaminophen (Percocet 5/325mg Oral Tab) 1 tab PO Q4H PRN PRN Reason: Severe Pain Stop: 10/31/19 07:11 Last Admin: 09/06/19 09:26 Dose: 1 tab Quetiapine Fumarate (Seroquel) 100 mg PO HS [facility]AS[facility]; Protocol Stop: 11/04/19 20:59 Last Admin: 09/05/19 20:41 Dose: 100 mg Rivaroxaban (Xarelto) 20 mg PO DAILY [facility] Stop: 10/31/19 08:59 Last Admin: 09/06/19 09:12 Dose: 20 mg Senna (Senna) 17.2 mg PO DAILY [facility] Stop: 10/31/19 08:59 Last Admin: 09/06/19 09:12 Dose: 17.2 mg Sitagliptin Phosphate (Januvia) 100 mg PO QDAC [facility] Stop: 10/31/19 07:29 Last Admin: 09/06/19 06:53 Dose: 100 mg Trimethoprim/Sulfamethoxazole (Bactrim Ds) 1 tab PO BID [facility] Stop: 11/01/19 16:59 Last Admin: 09/06/19 09:14 Dose: 1 tab Zolpidem Tartrate (Ambien) 5 mg PO HS PRN PRN Reason: Insomnia Stop: 10/31/19 00:54 Last Admin: 09/05/19 22:45 Dose: 5 mg General: NAD HEENT: NC/AT, PERRLA Neck: Supple, No JVD Lungs: other (no acute respiratory distress) Cardiovascular: Normal S1, Normal S2 Abdomen: soft, non-tender, non-distended Neurological: no change Internal Medicine Assmt/Plan - Assessment Assessment: HTN HX AFIB OBESITY DM2 CHRONIC PAINS SYNDROME - Plan Plan: monitor glucose fall precautions cpm Nutritional Asmnt/Malnutr-PDOC - Dietary Evaluation Malnutrition Findings (Please click <Entered> for more info): Nutritional Asmnt/Malnutrition Start: 09/03/19 17: 31 Text: Status: Complete Freq: Protocol: Document 09/03/19 17:40 MARCELO (Rec: 09/03/19 17:44 MARCELO [email or web address]) Nutritional Asmnt/Malnutrition Patient General Information Nutritional Screening Moderate Risk Diagnosis Psychosis Pertinent Medical Hx/Surgical Hx AFib, HTN, Obesity, DMT2, Psychosis, DVT Subjective Information Pt is a 69-year-old female admitted on 08/30 d/t agitation and aggressive behavior. Pt is eating an estimated 80% of meals since admit date (x3 days) Per Meal/Nutrition Activity Record. Dietary is currently providing an estimated 1600 kcals and 80 gm Pro, per Pt PO intake this is providing an estimated 1280 kcals and 64gm Pro to meet 85% kcal and 100% Pro needs. Pt refused dinner on first night here but has eaten 100% meals since dietitian visit and food preferences recorded. Visited pt in room in late afternoon, she was very alert and fully oriented, very pleasant. Made a few food requests and was alright with her diet once it was explained to her. Pt stated she is missing a few teeth but has no problem chewing and would like to eat cold cereal. Relayed information to pt RN Andrew. Pt requested a snack which I brought to her with some more water. Recommend diet modification to include cardiac d/t morbid obesity, BMI > 40, %IBW > 200% . Spoke with pt nurse Andrew regarding diet Rx recommendation (completed). Anthropometrics HT: 56 WT: 274 LB (124.55 kg) ABW: 166 LB (75.45 kg) BMI: 44.22 (Obese, class III) GI/ Skin Integrity GI: WNL, Soft, Non-tender, Large, Round BM: Not Noted I/O: 1380/Not Noted Skin: WNL, Bruises, Rash Kumar: 14 Diet Order: Mechanical Soft, CCHO 60gm, MONET Estimated Energy Needs: (Obese , ABW) 9697-6639 kcals (20-25 kcals/ kg) 60-75g Pro (0.8-1.0 g/kg) 7583-0173 ml (20-25 ml/kg) Current Diet Order/ Nutrition Support CCHO 60gm, Cardiac Pertinent Medications Maalox (PRN), Cordarone, Vitamin C, Glutose 40% (PRN), Colace, Glucagen (PRN), INS-SS , MOM (PRN), Glucophage, Senna , Januvia Pertinent Labs POC glucose (last 24 hours): 168, 201, 143 08/30: GFR 48, Glucose 182 Nutritional Hx/Data Height 5 ft 6 in Height (Calculated Centimeters) 167.6 Current Weight (lbs) 274 lb Weight (Calculated Kilograms) 124.3 Weight (Calculated Grams) 214558.3 [place] Body Weight 130 LB (59.09 kg) % [place] Body Weight 211 Body Mass Index (BMI) 44.2 Weight Status Morbidly Obese GI Symptoms Last BM Not noted Skin Integrity/Comment: Kumar: 14 Pt bedbound, bruises and rash- no open wounds. Estimated Nutritional Goals BEE in Kcals: Adj wt of IBW Calories/Kcals/Kg 20-25 Kcals Calculated 4203-7317 Protein: Adj wt of IBW Protein g/k.8-1.0 Protein Calculated 60-75 Fluid: ml 7422-2358 ml (20-25 ml/kg) Nutritional Problem 2. Problem Problem Impaired nutrient utilization Etiology r/t endocrine dysfunction Signs/Symptoms: aeb Hx DMT2, labs (08/30) Glucose 182. 1. Problem Problem Obesity Etiology r/t consistent energy overconsumption Signs/Symptoms: aeb BMI >40 (44.22 obese, class III). Malnutrition Related to Morbid Obesity Malnutrition related to morbid obesity Yes Intervention/Recommendation Comments 1.Recommend diet modification to include cardiac d/t morbid obesity, BMI > 40, %IBW > 200% (completed). 2.Continue antihyperglycemic medications for glucose control per MD order. Expected Outcomes/Goals Expected Outcomes/Goals 1.PO intake to continue to meet >75% of estimated nutritional needs. 2.Monitor PO intake, wt, nutrition related labs to tend WNL, and skin integrity. 3.Gradual weight loss (0.5-1.0 Lb/week) trending towards IBW preferred. 4.F/U as low risk in 7-10 days , 09/09-09/12
[2019-09-07] MEDS: Guaifenesin DM 10 ML UDC PO SCH ×3 (00:47→11:40)
--- NOTE | 2019-09-07 06:41 | Progress Notes ---
DATE: SUBJECTIVE: Chart was reviewed and the patient interviewed. Also discussed the patient's condition with the staff and reviewed records and labs. The patient is still demanding and is still in angry and in irritable mood. According to staff, the patient slammed the phone on the floor and she is requesting to get the phone all the time and she is trying to complain about the facility and about the nurses and the way of manipulation to get around issues and to get her demands met. The patient also is still easily agitated and she still gets angry with severe mood swings. Otherwise, the patient is compliant with taking her medications. The patient stays in bed all the time. Vital signs are stable and no new labs available for review. ASSESSMENT: The patient is still irritable and is still anxious. TREATMENT PLAN: Continue to monitor behavior and condition closely. Also, continue to work on her irritability and demanding as well as continue to work on discharge plans and placement issue. The patient is still working on trying to get to the [facility] in [place]. ESTIMATED LENGTH OF STAY: 2-4 days. REASON FOR CONTINUED HOSPITAL STAY: The patient is still demanding and agitated and also waiting for placement. JOB# [id number]
[2019-09-07] MEDS: INSULIN LISPRO SLIDING SCALE 100 UNITS/ML UNIT SUBQ SCH ×4 (06:52→21:30)
[2019-09-07] MEDS: Aspirin 81mg Chewable Tab PO SCH (08:15)
[2019-09-07] MEDS: Multivitamin w/ Minerals Tab PO SCH (08:15)
[2019-09-07] MEDS: Sulfamethoxazole/TMP 800/160mg Tab PO SCH ×2 (08:15→16:28)
[2019-09-07] MEDS: Lactobacillus Rhamnosus GG 15 Billion CFU CAP.SPRINK PO SCH (08:16)
[2019-09-07] MEDS: APAP/Oxycodone 5/325mg Tab PO PRN ×3 (08:26→21:52)
--- NOTE | 2019-09-07 17:50 | Internal Medicine Prog Note ---
Internal Medicine Subjective - Subjective Service Date: 09/07/19 Patient is:: awake, verbal, interactive Per staff patient has:: no adverse event, no episodes of fall, agitated Internal Medicine Objective - Results Recent Labs: Laboratory Last Values POC Glucose 177 MG/DL (70 - 105) H 09/07/19 17:00 - Physical Exam Vitals and I&O: Vital Signs Temp 97.7 F 09/07/19 14:00 Pulse 74 09/07/19 16:27 Resp 19 09/07/19 14:00 BP 137/72 09/07/19 14:00 Pulse Ox 95 09/07/19 14:00 Intake & Output 09/06/19 09/07/19 09/07/19 18:59 06:59 18:59 Intake Total 1450 480 800 Output Total 1 Balance 1450 479 800 Intake: Oral 1450 480 800 Output: Urine/Stool Mix 1 Other: # Voids 5 3 3 # Bowel Movements 1 0 1 Stool Characteristics Soft Formed Formed Formed Active Medications: Current Medications Acetaminophen (Tylenol) 650 mg PO Q4H PRN PRN Reason: Pain (Mild 1-3) Stop: 10/31/19 00:54 Acetaminophen (Tylenol) 650 mg PO Q4HR PRN PRN Reason: Mild Pain / Temp above 100 Stop: 10/31/19 07:11 Last Admin: 09/04/19 12:10 Dose: 650 mg Al Hydrox/Mg Hydrox/Simethicone (Maalox) 30 ml PO Q4HR PRN PRN Reason: GI DISTRESS Stop: 10/31/19 00:54 Amiodarone HCl (Cordarone) 100 mg PO BID [facility] Stop: 10/31/19 08:59 Last Admin: 09/07/19 16:27 Dose: 100 mg Amlodipine Besylate (Norvasc) 10 mg PO DAILY [facility] Stop: 10/31/19 08:59 Last Admin: 09/07/19 08:14 Dose: 10 mg Ascorbic Acid (Vitamin C) 500 mg PO DAILY [facility] Stop: 10/31/19 08:59 Last Admin: 09/07/19 08:15 Dose: 500 mg Aspirin (Aspirin Chewable) 81 mg PO DAILY [facility] Stop: 10/31/19 08:59 Last Admin: 09/07/19 08:15 Dose: 81 mg Dextrose (Glutose 40%) 18.75 gm PO PRN PRN PRN Reason: BS below 70 & tolerate po Stop: 10/31/19 07:11 Digoxin (Lanoxin) 0.25 mg PO DAILY [facility] Stop: 11/06/19 08:59 Last Admin: 09/07/19 08:16 Dose: 0.25 mg Docusate Sodium (Colace) 100 mg PO BID [facility] Stop: 10/31/19 08:59 Last Admin: 09/07/19 16:28 Dose: 100 mg Escitalopram Oxalate (Lexapro) 10 mg PO DAILY [facility]; Protocol Stop: 10/31/19 08:59 Last Admin: 09/07/19 08:16 Dose: 10 mg Glucagon (Glucagen) 1 mg IM PRN PRN PRN Reason: BS below 70&dextrose ineffecti Stop: 10/31/19 07:11 Guaifenesin/Dextromethorphan (Robitussin Dm) 10 ml PO Q6HR [facility] Stop: 09/14/19 05:59 Last Admin: 09/07/19 11:40 Dose: Not Given Insulin Human Lispro (Humalog Insulin Sliding Scale) 0 units SUBQ ACHS [facility]AS[facility]; Protocol Stop: 10/31/19 07:29 Last Admin: 09/07/19 17:04 Dose: 2 units Lactobacillus Rhamnosus (Culturelle 15b) 1 each PO DAILY [facility] Stop: 11/05/19 08:59 Last Admin: 09/07/19 08:16 Dose: 1 each Lorazepam (Ativan) 0.5 mg PO Q4HR PRN; Protocol PRN Reason: Anxiety Stop: 10/01/19 00:54 Last Admin: 09/01/19 23:37 Dose: 0.5 mg Magnesium Hydroxide (Milk Of Magnesia) 30 ml PO HS PRN PRN Reason: Constipation Metformin HCl (Glucophage) 500 mg PO BIDWM [facility] Stop: 10/31/19 07:59 Last Admin: 09/07/19 07:49 Dose: 500 mg Miscellaneous (Probiotic Screen) 1 ea MC PRN PRN PRN Reason: PROTOCOL Stop: 11/04/19 13:14 Oxybutynin Chloride (Ditropan) 5 mg PO DAILY [facility] Stop: 10/31/19 08:59 Last Admin: 09/07/19 08:16 Dose: 5 mg Oxycodone/Acetaminophen (Percocet 5/325mg Oral Tab) 1 tab PO Q4H PRN PRN Reason: Severe Pain Stop: 10/31/19 07:11 Last Admin: 09/07/19 15:10 Dose: 1 tab Quetiapine Fumarate (Seroquel) 100 mg PO HS JASEN; Protocol Stop: 11/04/19 20:59 Last Admin: 09/06/19 21:39 Dose: 100 mg Rivaroxaban (Xarelto) 20 mg PO DAILY [facility] Stop: 10/31/19 08:59 Last Admin: 09/07/19 08:15 Dose: 20 mg Senna (Senna) 17.2 mg PO DAILY [facility] Stop: 10/31/19 08:59 Last Admin: 09/07/19 08:14 Dose: 17.2 mg Sitagliptin Phosphate (Januvia) 100 mg PO QDAC [facility] Stop: 10/31/19 07:29 Last Admin: 09/07/19 07:49 Dose: 100 mg Trimethoprim/Sulfamethoxazole (Bactrim Ds) 1 tab PO BID [facility] Stop: 11/01/19 16:59 Last Admin: 09/07/19 16:28 Dose: 1 tab Zolpidem Tartrate (Ambien) 5 mg PO HS PRN PRN Reason: Insomnia Stop: 10/31/19 00:54 Last Admin: 09/06/19 22:54 Dose: 5 mg General: NAD HEENT: NC/AT, PERRLA Neck: Supple, No JVD Lungs: other (no acute respiratory distress) Cardiovascular: Normal S1, Normal S2 Abdomen: soft, non-tender, non-distended Neurological: no change Internal Medicine Assmt/Plan - Assessment Assessment: HTN HX AFIB OBESITY DM2 CHRONIC PAINS SYNDROME - Plan Plan: monitor glucose fall precautions cpm Nutritional Asmnt/Malnutr-PDOC - Dietary Evaluation Malnutrition Findings (Please click <Entered> for more info): Nutritional Asmnt/Malnutrition Start: 09/03/19 17: 31 Text: Status: Complete Freq: Protocol: Document 09/03/19 17:40 MARCELO (Rec: 09/03/19 17:44 MARCELO [id number]) Nutritional Asmnt/Malnutrition Patient General Information Nutritional Screening Moderate Risk Diagnosis Psychosis Pertinent Medical Hx/Surgical Hx AFib, HTN, Obesity, DMT2, Psychosis, DVT Subjective Information Pt is a 69-year-old female admitted on 08/30 d/t agitation and aggressive behavior. Pt is eating an estimated 80% of meals since admit date (x3 days) Per Meal/Nutrition Activity Record. Dietary is currently providing an estimated 1600 kcals and 80 gm Pro, per Pt PO intake this is providing an estimated 1280 kcals and 64gm Pro to meet 85% kcal and 100% Pro needs. Pt refused dinner on first night here but has eaten 100% meals since dietitian visit and food preferences recorded. Visited pt in room in late afternoon, she was very alert and fully oriented, very pleasant. Made a few food requests and was alright with her diet once it was explained to her. Pt stated she is missing a few teeth but has no problem chewing and would like to eat cold cereal. Relayed information to pt RN Andrew. Pt requested a snack which I brought to her with some more water. Recommend diet modification to include cardiac d/t morbid obesity, BMI > 40, %IBW > 200% . Spoke with pt nurse Andrew regarding diet Rx recommendation (completed). Anthropometrics HT: 56 WT: 274 LB (124.55 kg) ABW: 166 LB (75.45 kg) BMI: 44.22 (Obese, class III) GI/ Skin Integrity GI: WNL, Soft, Non-tender, Large, Round BM: Not Noted I/O: 1380/Not Noted Skin: WNL, Bruises, Rash Kumar: 14 Diet Order: Mechanical Soft, CCHO 60gm, MONET Estimated Energy Needs: (Obese , ABW) 7065-8793 kcals (20-25 kcals/ kg) 60-75g Pro (0.8-1.0 g/kg) 0540-5552 ml (20-25 ml/kg) Current Diet Order/ Nutrition Support CCHO 60gm, Cardiac Pertinent Medications Maalox (PRN), Cordarone, Vitamin C, Glutose 40% (PRN), Colace, Glucagen (PRN), INS-SS , MOM (PRN), Glucophage, Senna , Januvia Pertinent Labs POC glucose (last 24 hours): 168, 201, 143 08/30: GFR 48, Glucose 182 Nutritional Hx/Data Height 5 ft 6 in Height (Calculated Centimeters) 167.6 Current Weight (lbs) 274 lb Weight (Calculated Kilograms) 124.3 Weight (Calculated Grams) 574986.3 [place] Body Weight 130 LB (59.09 kg) % [place] Body Weight 211 Body Mass Index (BMI) 44.2 Weight Status Morbidly Obese GI Symptoms Last BM Not noted Skin Integrity/Comment: Kumar: 14 Pt bedbound, bruises and rash- no open wounds. Estimated Nutritional Goals BEE in Kcals: Adj wt of IBW Calories/Kcals/Kg 20-25 Kcals Calculated 2841-7474 Protein: Adj wt of IBW Protein g/k.8-1.0 Protein Calculated 60-75 Fluid: ml 0408-5615 ml (20-25 ml/kg) Nutritional Problem 2. Problem Problem Impaired nutrient utilization Etiology r/t endocrine dysfunction Signs/Symptoms: aeb Hx DMT2, labs (08/30) Glucose 182. 1. Problem Problem Obesity Etiology r/t consistent energy overconsumption Signs/Symptoms: aeb BMI >40 (44.22 obese, class III). Malnutrition Related to Morbid Obesity Malnutrition related to morbid obesity Yes Intervention/Recommendation Comments 1.Recommend diet modification to include cardiac d/t morbid obesity, BMI > 40, %IBW > 200% (completed). 2.Continue antihyperglycemic medications for glucose control per MD order. Expected Outcomes/Goals Expected Outcomes/Goals 1.PO intake to continue to meet >75% of estimated nutritional needs. 2.Monitor PO intake, wt, nutrition related labs to tend WNL, and skin integrity. 3.Gradual weight loss (0.5-1.0 Lb/week) trending towards IBW preferred. 4.F/U as low risk in 7-10 days , 09/09-09/12
[2019-09-08] MEDS: Guaifenesin DM 10 ML UDC PO SCH ×4 (00:30→17:09)
[2019-09-08] MEDS: INSULIN LISPRO SLIDING SCALE 100 UNITS/ML UNIT SUBQ SCH ×4 (06:55→21:02)
--- NOTE | 2019-09-08 07:21 | Progress Notes ---
DATE: 09/08/2019 SUBJECTIVE: Chart was reviewed and the patient interviewed. Also discussed the patient's condition with the staff and reviewed records and labs. The patient is still demanding and she is still in irritable mood. The patient also is still easily agitated and she is still at times was noticed to be throwing objects towards the staff. Also, sometimes difficult following directions and she still needs close observation and close monitoring. Otherwise, the patient is compliant with taking her medications with no side effects of medications. Patient's stays in bed, almost all the time. Vital signs are stable and no new labs available for review. MENTAL STATUS EXAMINATION: Anxious. Restless. Demanding. Thought process is circumstantial, but no flight of ideas. ASSESSMENT: The patient is still agitated and also still needs placement. TREATMENT PLAN: Continue current treatment. Also discussed with the patient placement issue and binder caser informed me that she is not able to go to the facility that she wants to go to about this other facility accepted her. At the same time, we will continue working on discharge plans and placement issue and also working on behavioral issues. ESTIMATED LENGTH OF STAY: 3-5 days. REASON TO CONTINUE HOSPITAL STAY: The patient is still agitated and needs placement. JOB# [id number]
[2019-09-08] MEDS: Lactobacillus Rhamnosus GG 15 Billion CFU CAP.SPRINK PO SCH (08:45)
[2019-09-08] MEDS: Multivitamin w/ Minerals Tab PO SCH (08:46)
[2019-09-08] MEDS: Aspirin 81mg Chewable Tab PO SCH (08:47)
[2019-09-08] MEDS: APAP/Oxycodone 5/325mg Tab PO PRN ×3 (11:15→21:01)
--- NOTE | 2019-09-08 17:12 | Internal Medicine Prog Note ---
Internal Medicine Subjective - Subjective Service Date: 09/08/19 (agitated) Patient is:: awake, verbal, interactive, agitated Per staff patient has:: no adverse event, no episodes of fall, agitated Internal Medicine Objective - Results Recent Labs: Laboratory Last Values POC Glucose 206 MG/DL (70 - 105) H 09/08/19 11:07 - Physical Exam Vitals and I&O: Vital Signs Temp 97.0 F 09/07/19 20:00 Pulse 74 09/08/19 16:41 Resp 20 09/08/19 08:00 BP 141/74 09/08/19 08:49 Pulse Ox 97 09/07/19 20:00 Intake & Output 09/07/19 09/08/19 09/08/19 18:59 06:59 18:59 Intake Total 800 Balance 800 Intake: Oral 800 Other: # Voids 4 # Bowel Movements 0 Stool Characteristics Formed Active Medications: Current Medications Acetaminophen (Tylenol) 650 mg PO Q4H PRN PRN Reason: Pain (Mild 1-3) Stop: 10/31/19 00:54 Last Admin: 09/08/19 08:44 Dose: 650 mg Acetaminophen (Tylenol) 650 mg PO Q4HR PRN PRN Reason: Mild Pain / Temp above 100 Stop: 10/31/19 07:11 Last Admin: 09/04/19 12:10 Dose: 650 mg Al Hydrox/Mg Hydrox/Simethicone (Maalox) 30 ml PO Q4HR PRN PRN Reason: GI DISTRESS Stop: 10/31/19 00:54 Amiodarone HCl (Cordarone) 100 mg PO BID [facility] Stop: 10/31/19 08:59 Last Admin: 09/08/19 16:41 Dose: 100 mg Amlodipine Besylate (Norvasc) 10 mg PO DAILY [facility] Stop: 10/31/19 08:59 Last Admin: 09/08/19 08:49 Dose: 10 mg Ascorbic Acid (Vitamin C) 500 mg PO DAILY [facility] Stop: 10/31/19 08:59 Last Admin: 09/08/19 08:47 Dose: 500 mg Aspirin (Aspirin Chewable) 81 mg PO DAILY [facility] Stop: 10/31/19 08:59 Last Admin: 09/08/19 08:47 Dose: 81 mg Dextrose (Glutose 40%) 18.75 gm PO PRN PRN PRN Reason: BS below 70 & tolerate po Stop: 10/31/19 07:11 Digoxin (Lanoxin) 0.25 mg PO DAILY [facility] Stop: 11/06/19 08:59 Last Admin: 09/08/19 08:47 Dose: 0.25 mg Docusate Sodium (Colace) 100 mg PO BID [facility] Stop: 10/31/19 08:59 Last Admin: 09/08/19 16:41 Dose: 100 mg Escitalopram Oxalate (Lexapro) 10 mg PO DAILY [facility]; Protocol Stop: 10/31/19 08:59 Last Admin: 09/08/19 08:46 Dose: 10 mg Glucagon (Glucagen) 1 mg IM PRN PRN PRN Reason: BS below 70&dextrose ineffecti Stop: 10/31/19 07:11 Guaifenesin/Dextromethorphan (Robitussin Dm) 10 ml PO Q6HR [facility] Stop: 09/14/19 05:59 Last Admin: 09/08/19 17:09 Dose: 10 ml Insulin Human Lispro (Humalog Insulin Sliding Scale) 0 units SUBQ ACHS [facility]; Protocol Stop: 10/31/19 07:29 Last Admin: 09/08/19 16:30 Dose: 2 units Lactobacillus Rhamnosus (Culturelle 15b) 1 each PO DAILY [facility] Stop: 11/05/19 08:59 Last Admin: 09/08/19 08:45 Dose: 1 each Lorazepam (Ativan) 0.5 mg PO Q4HR PRN; Protocol PRN Reason: Anxiety Stop: 10/01/19 00:54 Last Admin: 09/01/19 23:37 Dose: 0.5 mg Magnesium Hydroxide (Milk Of Magnesia) 30 ml PO HS PRN PRN Reason: Constipation Metformin HCl (Glucophage) 500 mg PO BIDWM [facility] Stop: 10/31/19 07:59 Last Admin: 09/08/19 17:08 Dose: 500 mg Miscellaneous (Probiotic Screen) 1 ea MC PRN PRN PRN Reason: PROTOCOL Stop: 11/04/19 13:14 Oxybutynin Chloride (Ditropan) 5 mg PO DAILY [facility] Stop: 10/31/19 08:59 Last Admin: 09/08/19 08:47 Dose: 5 mg Oxycodone/Acetaminophen (Percocet 5/325mg Oral Tab) 1 tab PO Q4H PRN PRN Reason: Severe Pain Stop: 10/31/19 07:11 Last Admin: 09/08/19 16:41 Dose: 1 tab Quetiapine Fumarate (Seroquel) 100 mg PO HS [facility]; Protocol Stop: 11/04/19 20:59 Last Admin: 09/07/19 21:36 Dose: 100 mg Rivaroxaban (Xarelto) 20 mg PO DAILY [facility] Stop: 10/31/19 08:59 Last Admin: 09/08/19 08:46 Dose: 20 mg Senna (Senna) 17.2 mg PO DAILY [facility] Stop: 10/31/19 08:59 Last Admin: 09/08/19 08:47 Dose: 17.2 mg Sitagliptin Phosphate (Januvia) 100 mg PO QDAC [facility] Stop: 10/31/19 07:29 Last Admin: 09/08/19 07:21 Dose: 100 mg Zolpidem Tartrate (Ambien) 5 mg PO HS PRN PRN Reason: Insomnia Stop: 10/31/19 00:54 Last Admin: 09/07/19 21:36 Dose: 5 mg General: NAD HEENT: NC/AT, PERRLA Neck: Supple, No JVD Lungs: other (no acute respiratory distress) Cardiovascular: Normal S1, Normal S2 Abdomen: soft, non-tender, non-distended Neurological: no change Internal Medicine Assmt/Plan - Assessment Assessment: HTN HX AFIB OBESITY DM2 CHRONIC PAINS SYNDROME - Plan Plan: monitor glucose fall precautions cpm Nutritional Asmnt/Malnutr-PDOC - Dietary Evaluation Malnutrition Findings (Please click <Entered> for more info): Nutritional Asmnt/Malnutrition Start: 09/03/19 17: 31 Text: Status: Complete Freq: Protocol: Document 09/03/19 17:40 MARCELO (Rec: 09/03/19 17:44 MARCELO [id number]) Nutritional Asmnt/Malnutrition Patient General Information Nutritional Screening Moderate Risk Diagnosis Psychosis Pertinent Medical Hx/Surgical Hx AFib, HTN, Obesity, DMT2, Psychosis, DVT Subjective Information Pt is a 69-year-old female admitted on 08/30 d/t agitation and aggressive behavior. Pt is eating an estimated 80% of meals since admit date (x3 days) Per Meal/Nutrition Activity Record. Dietary is currently providing an estimated 1600 kcals and 80 gm Pro, per Pt PO intake this is providing an estimated 1280 kcals and 64gm Pro to meet 85% kcal and 100% Pro needs. Pt refused dinner on first night here but has eaten 100% meals since dietitian visit and food preferences recorded. Visited pt in room in late afternoon, she was very alert and fully oriented, very pleasant. Made a few food requests and was alright with her diet once it was explained to her. Pt stated she is missing a few teeth but has no problem chewing and would like to eat cold cereal. Relayed information to pt RN Andrew. Pt requested a snack which I brought to her with some more water. Recommend diet modification to include cardiac d/t morbid obesity, BMI > 40, %IBW > 200% . Spoke with pt nurse Andrew regarding diet Rx recommendation (completed). Anthropometrics HT: 56 WT: 274 LB (124.55 kg) ABW: 166 LB (75.45 kg) BMI: 44.22 (Obese, class III) GI/ Skin Integrity GI: WNL, Soft, Non-tender, Large, Round BM: Not Noted I/O: 1380/Not Noted Skin: WNL, Bruises, Rash Kumar: 14 Diet Order: Mechanical Soft, CCHO 60gm, MONET Estimated Energy Needs: (Obese , ABW) 9920-7516 kcals (20-25 kcals/ kg) 60-75g Pro (0.8-1.0 g/kg) 4852-9782 ml (20-25 ml/kg) Current Diet Order/ Nutrition Support CCHO 60gm, Cardiac Pertinent Medications Maalox (PRN), Cordarone, Vitamin C, Glutose 40% (PRN), Colace, Glucagen (PRN), INS-SS , MOM (PRN), Glucophage, Senna , Januvia Pertinent Labs POC glucose (last 24 hours): 168, 201, 143 4/: GFR 48, Glucose 182 Nutritional Hx/Data Height 5 ft 6 in Height (Calculated Centimeters) 167.6 Current Weight (lbs) 274 lb Weight (Calculated Kilograms) 124.3 Weight (Calculated Grams) 563035.3 [place] Body Weight 130 LB (59.09 kg) % [place] Body Weight 211 Body Mass Index (BMI) 44.2 Weight Status Morbidly Obese GI Symptoms Last BM Not noted Skin Integrity/Comment: Kumar: 14 Pt bedbound, bruises and rash- no open wounds. Estimated Nutritional Goals BEE in Kcals: Adj wt of IBW Calories/Kcals/Kg 20-25 Kcals Calculated 5804-2242 Protein: Adj wt of IBW Protein g/k.8-1.0 Protein Calculated 60-75 Fluid: ml 5107-3618 ml (20-25 ml/kg) Nutritional Problem 2. Problem Problem Impaired nutrient utilization Etiology r/t endocrine dysfunction Signs/Symptoms: aeb Hx DMT2, labs (08/30) Glucose 182. 1. Problem Problem Obesity Etiology r/t consistent energy overconsumption Signs/Symptoms: aeb BMI >40 (44.22 obese, class III). Malnutrition Related to Morbid Obesity Malnutrition related to morbid obesity Yes Intervention/Recommendation Comments 1.Recommend diet modification to include cardiac d/t morbid obesity, BMI > 40, %IBW > 200% (completed). 2.Continue antihyperglycemic medications for glucose control per MD order. Expected Outcomes/Goals Expected Outcomes/Goals 1.PO intake to continue to meet >75% of estimated nutritional needs. 2.Monitor PO intake, wt, nutrition related labs to tend WNL, and skin integrity. 3.Gradual weight loss (0.5-1.0 Lb/week) trending towards IBW preferred. 4.F/U as low risk in 7-10 days , 09/09-09/12
[2019-09-09] MEDS: APAP/Oxycodone 5/325mg Tab PO PRN ×3 (06:51→20:49)
[2019-09-09] MEDS: INSULIN LISPRO SLIDING SCALE 100 UNITS/ML UNIT SUBQ SCH ×4 (06:52→20:47)
[2019-09-09] MEDS: Multivitamin w/ Minerals Tab PO SCH (08:59)
[2019-09-09] MEDS: Aspirin 81mg Chewable Tab PO SCH (09:01)
[2019-09-09] MEDS: Lactobacillus Rhamnosus GG 15 Billion CFU CAP.SPRINK PO SCH (09:05)
--- NOTE | 2019-09-09 10:52 | Progress Notes ---
DATE: SUBJECTIVE: Chart was reviewed and the patient interviewed. Also discussed the patient's condition with the staff and reviewed records and labs. The patient is still restless and in irritable mood. The patient also is still having mood swings, but in general she seems to be calmer and less irritable and less agitated. The patient also is still manipulative and still has difficulty making her mind about her living situations and her discharge plan. The patient also still wants to be living in a certain place, but it seems that this place is not available at the time being and they are not accepting any patients at this time because of Coronavirus, but at the same time the patient had had difficulty accepting that fact. Otherwise, the patient has continued to comply with taking her medications with no side effects of medications. The patient is staying in bed all the time, but vital signs are stable and no new labs available for review MENTAL STATUS EXAMINATION: Anxious. Cooperative. Mood not depressed, nor elated at this time. ASSESSMENT: The patient is still demanding, but also still needs placement, but seems to be calmer than before TREATMENT PLAN: We will continue monitoring her behavior and her condition closely. Also, continue to work on her discharge plans and placement issue ESTIMATED LENGTH OF STAY: 2-4 days. REASON FOR CONTINUED HOSPITAL STAY: The patient still needs placement and still agitated and needs close monitoring. [facility]# [id number]
--- NOTE | 2019-09-09 17:30 | Internal Medicine Prog Note ---
Internal Medicine Subjective - Subjective Service Date: 09/09/19 Patient is:: awake, verbal, interactive, agitated Per staff patient has:: no adverse event, no episodes of fall, agitated Internal Medicine Objective - Results Recent Labs: Laboratory Last Values POC Glucose 206 MG/DL (70 - 105) H 09/08/19 11:07 - Physical Exam Vitals and I&O: Vital Signs Temp 97.8 F 09/09/19 14:00 Pulse 62 09/09/19 14:00 Resp 20 09/09/19 14:00 BP 137/60 09/09/19 14:00 Pulse Ox 97 09/09/19 14:00 Intake & Output 09/08/19 09/09/19 09/09/19 18:59 06:59 18:59 Other: Stool Characteristics Formed Formed Brown Brown Active Medications: Current Medications Acetaminophen (Tylenol) 650 mg PO Q4H PRN PRN Reason: Pain (Mild 1-3) Stop: 10/31/19 00:54 Last Admin: 09/09/19 14:02 Dose: 650 mg Acetaminophen (Tylenol) 650 mg PO Q4HR PRN PRN Reason: Mild Pain / Temp above 100 Stop: 10/31/19 07:11 Last Admin: 09/04/19 12:10 Dose: 650 mg Al Hydrox/Mg Hydrox/Simethicone (Maalox) 30 ml PO Q4HR PRN PRN Reason: GI DISTRESS Stop: 10/31/19 00:54 Amiodarone HCl (Cordarone) 100 mg PO BID [facility] Stop: 10/31/19 08:59 Last Admin: 09/09/19 09:01 Dose: 100 mg Amlodipine Besylate (Norvasc) 10 mg PO DAILY [facility] Stop: 10/31/19 08:59 Last Admin: 09/09/19 09:05 Dose: 10 mg Ascorbic Acid (Vitamin C) 500 mg PO DAILY [facility] Stop: 10/31/19 08:59 Last Admin: 09/09/19 08:59 Dose: 500 mg Aspirin (Aspirin Chewable) 81 mg PO DAILY [facility] Stop: 10/31/19 08:59 Last Admin: 09/09/19 09:01 Dose: 81 mg Dextrose (Glutose 40%) 18.75 gm PO PRN PRN PRN Reason: BS below 70 & tolerate po Stop: 10/31/19 07:11 Digoxin (Lanoxin) 0.25 mg PO DAILY [facility] Stop: 11/06/19 08:59 Last Admin: 09/09/19 09:01 Dose: 0.25 mg Docusate Sodium (Colace) 100 mg PO BID [facility] Stop: 10/31/19 08:59 Last Admin: 09/09/19 08:59 Dose: 100 mg Escitalopram Oxalate (Lexapro) 10 mg PO DAILY [facility]; Protocol Stop: 10/31/19 08:59 Last Admin: 09/09/19 09:03 Dose: 10 mg Glucagon (Glucagen) 1 mg IM PRN PRN PRN Reason: BS below 70&dextrose ineffecti Stop: 10/31/19 07:11 Insulin Human Lispro (Humalog Insulin Sliding Scale) 0 units SUBQ ACHS [facility]; Protocol Stop: 10/31/19 07:29 Last Admin: 09/09/19 16:31 Dose: Not Given Lactobacillus Rhamnosus (Culturelle 15b) 1 each PO DAILY [facility] Stop: 11/05/19 08:59 Last Admin: 09/09/19 09:05 Dose: 1 each Lorazepam (Ativan) 0.5 mg PO Q4HR PRN; Protocol PRN Reason: Anxiety Stop: 10/01/19 00:54 Last Admin: 09/01/19 23:37 Dose: 0.5 mg Magnesium Hydroxide (Milk Of Magnesia) 30 ml PO HS PRN PRN Reason: Constipation Metformin HCl (Glucophage) 500 mg PO BIDWM [facility] Stop: 10/31/19 07:59 Last Admin: 09/09/19 08:58 Dose: 500 mg Miscellaneous (Probiotic Screen) 1 ea MC PRN PRN PRN Reason: PROTOCOL Stop: 11/04/19 13:14 Oxybutynin Chloride (Ditropan) 5 mg PO DAILY [facility] Stop: 10/31/19 08:59 Last Admin: 09/09/19 09:04 Dose: 5 mg Oxycodone/Acetaminophen (Percocet 5/325mg Oral Tab) 1 tab PO Q4H PRN PRN Reason: Severe Pain Stop: 10/31/19 07:11 Last Admin: 09/09/19 10:43 Dose: 1 tab Quetiapine Fumarate (Seroquel) 100 mg PO HS [facility]; Protocol Stop: 11/04/19 20:59 Last Admin: 09/08/19 21:01 Dose: 100 mg Rivaroxaban (Xarelto) 20 mg PO DAILY [facility] Stop: 10/31/19 08:59 Last Admin: 09/09/19 09:04 Dose: 20 mg Senna (Senna) 17.2 mg PO DAILY [facility] Stop: 10/31/19 08:59 Last Admin: 09/09/19 09:00 Dose: 17.2 mg Sitagliptin Phosphate (Januvia) 100 mg PO QDAC [facility] Stop: 10/31/19 07:29 Last Admin: 09/09/19 06:51 Dose: 100 mg Zolpidem Tartrate (Ambien) 5 mg PO HS PRN PRN Reason: Insomnia Stop: 10/31/19 00:54 Last Admin: 09/08/19 21:01 Dose: 5 mg General: NAD HEENT: NC/AT, PERRLA Neck: Supple, No JVD Lungs: other (no acute respiratory distress) Cardiovascular: Normal S1, Normal S2 Abdomen: soft, non-tender, non-distended Neurological: no change Internal Medicine Assmt/Plan - Assessment Assessment: HTN HX AFIB OBESITY DM2 CHRONIC PAINS SYNDROME - Plan Plan: monitor glucose fall precautions cpm Nutritional Asmnt/Malnutr-PDOC - Dietary Evaluation Malnutrition Findings (Please click <Entered> for more info): Nutritional Asmnt/Malnutrition Start: 09/03/19 17: 31 Text: Status: Complete Freq: Protocol: Document 09/03/19 17:40 MARCELO (Rec: 09/03/19 17:44 MARCELO [email or web address]) Nutritional Asmnt/Malnutrition Patient General Information Nutritional Screening Moderate Risk Diagnosis Psychosis Pertinent Medical Hx/Surgical Hx AFib, HTN, Obesity, DMT2, Psychosis, DVT Subjective Information Pt is a 69-year-old female admitted on 08/30 d/t agitation and aggressive behavior. Pt is eating an estimated 80% of meals since admit date (x3 days) Per Meal/Nutrition Activity Record. Dietary is currently providing an estimated 1600 kcals and 80 gm Pro, per Pt PO intake this is providing an estimated 1280 kcals and 64gm Pro to meet 85% kcal and 100% Pro needs. Pt refused dinner on first night here but has eaten 100% meals since dietitian visit and food preferences recorded. Visited pt in room in late afternoon, she was very alert and fully oriented, very pleasant. Made a few food requests and was alright with her diet once it was explained to her. Pt stated she is missing a few teeth but has no problem chewing and would like to eat cold cereal. Relayed information to pt RN Andrew. Pt requested a snack which I brought to her with some more water. Recommend diet modification to include cardiac d/t morbid obesity, BMI > 40, %IBW > 200% . Spoke with pt nurse Andrew regarding diet Rx recommendation (completed). Anthropometrics HT: 56 WT: 274 LB (124.55 kg) ABW: 166 LB (75.45 kg) BMI: 44.22 (Obese, class III) GI/ Skin Integrity GI: WNL, Soft, Non-tender, Large, Round BM: Not Noted I/O: 1380/Not Noted Skin: WNL, Bruises, Rash Kumar: 14 Diet Order: Mechanical Soft, CCHO 60gm, MONET Estimated Energy Needs: (Obese , ABW) 8605-2356 kcals (20-25 kcals/ kg) 60-75g Pro (0.8-1.0 g/kg) 2432-3640 ml (20-25 ml/kg) Current Diet Order/ Nutrition Support CCHO 60gm, Cardiac Pertinent Medications Maalox (PRN), Cordarone, Vitamin C, Glutose 40% (PRN), Colace, Glucagen (PRN), INS-SS , MOM (PRN), Glucophage, Senna , Januvia Pertinent Labs POC glucose (last 24 hours): 168, 201, 143 4/1: GFR 48, Glucose 182 Nutritional Hx/Data Height 5 ft 6 in Height (Calculated Centimeters) 167.6 Current Weight (lbs) 274 lb Weight (Calculated Kilograms) 124.3 Weight (Calculated Grams) 792170.3 [place] Body Weight 130 LB (59.09 kg) % [place] Body Weight 211 Body Mass Index (BMI) 44.2 Weight Status Morbidly Obese GI Symptoms Last BM Not noted Skin Integrity/Comment: Kumar: 14 Pt bedbound, bruises and rash- no open wounds. Estimated Nutritional Goals BEE in Kcals: Adj wt of IBW Calories/Kcals/Kg 20-25 Kcals Calculated 8691-7537 Protein: Adj wt of IBW Protein g/k.8-1.0 Protein Calculated 60-75 Fluid: ml 6978-6530 ml (20-25 ml/kg) Nutritional Problem 2. Problem Problem Impaired nutrient utilization Etiology r/t endocrine dysfunction Signs/Symptoms: aeb Hx DMT2, labs (08/30) Glucose 182. 1. Problem Problem Obesity Etiology r/t consistent energy overconsumption Signs/Symptoms: aeb BMI >40 (44.22 obese, class III). Malnutrition Related to Morbid Obesity Malnutrition related to morbid obesity Yes Intervention/Recommendation Comments 1.Recommend diet modification to include cardiac d/t morbid obesity, BMI > 40, %IBW > 200% (completed). 2.Continue antihyperglycemic medications for glucose control per MD order. Expected Outcomes/Goals Expected Outcomes/Goals 1.PO intake to continue to meet >75% of estimated nutritional needs. 2.Monitor PO intake, wt, nutrition related labs to tend WNL, and skin integrity. 3.Gradual weight loss (0.5-1.0 Lb/week) trending towards IBW preferred. 4.F/U as low risk in 7-10 days , 09/09-09/12
[2019-09-10] MEDS: APAP/Oxycodone 5/325mg Tab PO PRN ×4 (02:46→21:17)
[2019-09-10] MEDS: INSULIN LISPRO SLIDING SCALE 100 UNITS/ML UNIT SUBQ SCH ×4 (06:40→21:30)
[2019-09-10] MEDS: Lactobacillus Rhamnosus GG 15 Billion CFU CAP.SPRINK PO SCH (08:15)
[2019-09-10] MEDS: Multivitamin w/ Minerals Tab PO SCH (08:15)
[2019-09-10] MEDS: Aspirin 81mg Chewable Tab PO SCH (08:16)
--- NOTE | 2019-09-10 18:32 | Progress Notes ---
DATE: 09/10/2019 SUBJECTIVE: The patient was seen in the room. The patient is interactive, appears to be calmer at this point compared to previous days, but still has episodes of restlessness, agitation, and poor impulse control. Otherwise, the patient appears to be in no acute distress. OBJECTIVE: VITAL SIGNS: Temperature 97.2, heart rate 70, blood pressure ____, respirations 20, 94% on room air. HEENT: Head is atraumatic and normocephalic. Eyes: Bilateral conjunctivae are clear. Bilateral pupils are equally round and reactive. NECK: Supple. No JVD. CARDIOVASCULAR: S1 and S2, without murmur. PULMONARY: Clear to auscultation. GASTROINTESTINAL: Soft and nontender without guarding. Positive bowel sounds. MUSCULOSKELETAL: No clubbing. No cyanosis noted. ASSESSMENT: 1. Bipolar disorder. 2. Hypertension. 3. Diabetes. 4. Atrial fibrillation. 5. Chronic pain syndrome. PLAN: Continue to keep the patient inpatient to Psychiatric Unit. We will follow up with a psychiatrist to monitor the patient's condition and behavior. Treatment plans were discussed with the patient's nurse. Treatment plans were discussed with Dr. Lewis. JOB# [id number]
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
[2019-09-11] MEDS: INSULIN LISPRO SLIDING SCALE 100 UNITS/ML UNIT SUBQ SCH ×4 (06:49→20:34)
[2019-09-11] MEDS: Aspirin 81mg Chewable Tab PO SCH (09:35)
[2019-09-11] MEDS: Multivitamin w/ Minerals Tab PO SCH (09:36)
[2019-09-11] MEDS: Lactobacillus Rhamnosus GG 15 Billion CFU CAP.SPRINK PO SCH (09:36)
[2019-09-11] MEDS: APAP/Oxycodone 5/325mg Tab PO PRN ×3 (10:39→21:24)
--- NOTE | 2019-09-11 22:19 | Internal Medicine Prog Note ---
Internal Medicine Subjective - Subjective Patient is:: awake, verbal, interactive, agitated Per staff patient has:: no adverse event, no episodes of fall, agitated Internal Medicine Objective - Results Recent Labs: Laboratory Last Values POC Glucose 244 MG/DL (70 - 105) H 09/11/19 20:08 - Physical Exam Vitals and I&O: Vital Signs Temp 97.8 F 09/11/19 19:58 Pulse 76 09/11/19 19:58 Resp 20 09/11/19 20:00 BP 139/78 09/11/19 19:58 Pulse Ox 96 09/11/19 19:58 Intake & Output 09/11/19 09/11/19 09/12/19 06:59 18:59 06:59 Intake Total 420 1100 480 Balance 420 1100 480 Intake: Oral 420 1100 480 Other: # Voids 2 1 # Bowel Movements 0 1 Active Medications: Current Medications Acetaminophen (Tylenol) 650 mg PO Q4H PRN PRN Reason: Pain (Mild 1-3) Stop: 10/31/19 00:54 Last Admin: 09/09/19 14:02 Dose: 650 mg Acetaminophen (Tylenol) 650 mg PO Q4HR PRN PRN Reason: Mild Pain / Temp above 100 Stop: 10/31/19 07:11 Last Admin: 09/04/19 12:10 Dose: 650 mg Al Hydrox/Mg Hydrox/Simethicone (Maalox) 30 ml PO Q4HR PRN PRN Reason: GI DISTRESS Stop: 10/31/19 00:54 Amiodarone HCl (Cordarone) 100 mg PO BID [facility] Stop: 10/31/19 08:59 Last Admin: 09/11/19 17:25 Dose: 100 mg Amlodipine Besylate (Norvasc) 10 mg PO DAILY [facility] Stop: 10/31/19 08:59 Last Admin: 09/11/19 09:34 Dose: 10 mg Ascorbic Acid (Vitamin C) 500 mg PO DAILY [facility] Stop: 10/31/19 08:59 Last Admin: 09/11/19 09:35 Dose: 500 mg Aspirin (Aspirin Chewable) 81 mg PO DAILY [facility] Stop: 10/31/19 08:59 Last Admin: 09/11/19 09:35 Dose: 81 mg Dextrose (Glutose 40%) 18.75 gm PO PRN PRN PRN Reason: BS below 70 & tolerate po Stop: 10/31/19 07:11 Digoxin (Lanoxin) 0.25 mg PO DAILY [facility] Stop: 11/06/19 08:59 Last Admin: 09/11/19 09:36 Dose: 0.25 mg Docusate Sodium (Colace) 100 mg PO BID [facility] Stop: 10/31/19 08:59 Last Admin: 09/11/19 17:24 Dose: 100 mg Escitalopram Oxalate (Lexapro) 10 mg PO DAILY [facility]; Protocol Stop: 10/31/19 08:59 Last Admin: 09/11/19 09:36 Dose: 10 mg Glucagon (Glucagen) 1 mg IM PRN PRN PRN Reason: BS below 70&dextrose ineffecti Stop: 10/31/19 07:11 Insulin Human Lispro (Humalog Insulin Sliding Scale) 0 units SUBQ ACHS [facility]; Protocol Stop: 10/31/19 07:29 Last Admin: 09/11/19 20:34 Dose: 4 units Lactobacillus Rhamnosus (Culturelle 15b) 1 each PO DAILY [facility] Stop: 11/05/19 08:59 Last Admin: 09/11/19 09:36 Dose: 1 each Lorazepam (Ativan) 0.5 mg PO Q4HR PRN; Protocol PRN Reason: Anxiety Stop: 10/01/19 00:54 Last Admin: 09/11/19 20:34 Dose: 0.5 mg Magnesium Hydroxide (Milk Of Magnesia) 30 ml PO HS PRN PRN Reason: Constipation Metformin HCl (Glucophage) 500 mg PO BIDWM [facility] Stop: 10/31/19 07:59 Last Admin: 09/11/19 17:30 Dose: 500 mg Miscellaneous (Probiotic Screen) 1 ea MC PRN PRN PRN Reason: PROTOCOL Stop: 11/04/19 13:14 Oxybutynin Chloride (Ditropan) 5 mg PO DAILY [facility] Stop: 10/31/19 08:59 Last Admin: 09/11/19 09:36 Dose: 5 mg Oxycodone/Acetaminophen (Percocet 5/325mg Oral Tab) 1 tab PO Q4H PRN PRN Reason: Severe Pain Stop: 10/31/19 07:11 Last Admin: 09/11/19 21:24 Dose: 1 tab Quetiapine Fumarate (Seroquel) 100 mg PO HS [facility]; Protocol Stop: 11/04/19 20:59 Last Admin: 09/11/19 20:34 Dose: 100 mg Rivaroxaban (Xarelto) 20 mg PO DAILY [facility] Stop: 10/31/19 08:59 Last Admin: 09/11/19 09:37 Dose: 20 mg Senna (Senna) 17.2 mg PO DAILY [facility] Stop: 10/31/19 08:59 Last Admin: 09/11/19 09:37 Dose: 17.2 mg Sitagliptin Phosphate (Januvia) 100 mg PO QDAC [facility] Stop: 10/31/19 07:29 Last Admin: 09/11/19 06:50 Dose: Not Given Zolpidem Tartrate (Ambien) 5 mg PO HS PRN PRN Reason: Insomnia Stop: 10/31/19 00:54 Last Admin: 09/11/19 21:24 Dose: 5 mg General: NAD HEENT: NC/AT, PERRLA Neck: Supple, No JVD Lungs: other (no acute respiratory distress) Cardiovascular: Normal S1, Normal S2 Abdomen: soft, non-tender, non-distended Neurological: no change Internal Medicine Assmt/Plan - Assessment Assessment: Bipolar disroder HTN Afib Chronic pain syndrome DM OAB - Plan Plan: Continue current treatment Fall and Safety precautions Psychiatry for psych management Continue to monitor VS, IO Pain as needed Continue to collaborate with interdisciplinary team. Nutritional Asmnt/Malnutr-PDOC - Dietary Evaluation Malnutrition Findings (Please click <Entered> for more info): Nutritional Asmnt/Malnutrition Start: 09/03/19 17: 31 Text: Status: Complete Freq: Protocol: Document 09/03/19 17:40 MARCELO (Rec: 09/03/19 17:44 MARCELO [email or web address]) Nutritional Asmnt/Malnutrition Patient General Information Nutritional Screening Moderate Risk Diagnosis Psychosis Pertinent Medical Hx/Surgical Hx AFib, HTN, Obesity, DMT2, Psychosis, DVT Subjective Information Pt is a 69-year-old female admitted on 08/30 d/t agitation and aggressive behavior. Pt is eating an estimated 80% of meals since admit date (x3 days) Per Meal/Nutrition Activity Record. Dietary is currently providing an estimated 1600 kcals and 80 gm Pro, per Pt PO intake this is providing an estimated 1280 kcals and 64gm Pro to meet 85% kcal and 100% Pro needs. Pt refused dinner on first night here but has eaten 100% meals since dietitian visit and food preferences recorded. Visited pt in room in late afternoon, she was very alert and fully oriented, very pleasant. Made a few food requests and was alright with her diet once it was explained to her. Pt stated she is missing a few teeth but has no problem chewing and would like to eat cold cereal. Relayed information to pt RN Andrew. Pt requested a snack which I brought to her with some more water. Recommend diet modification to include cardiac d/t morbid obesity, BMI > 40, %IBW > 200% . Spoke with pt nurse Andrew regarding diet Rx recommendation (completed). Anthropometrics HT: 56 WT: 274 LB (124.55 kg) ABW: 166 LB (75.45 kg) BMI: 44.22 (Obese, class III) GI/ Skin Integrity GI: WNL, Soft, Non-tender, Large, Round BM: Not Noted I/O: 1380/Not Noted Skin: WNL, Bruises, Rash Kumar: 14 Diet Order: Mechanical Soft, CCHO 60gm, MONET Estimated Energy Needs: (Obese , ABW) 2260-6663 kcals (20-25 kcals/ kg) 60-75g Pro (0.8-1.0 g/kg) 5178-7543 ml (20-25 ml/kg) Current Diet Order/ Nutrition Support CCHO 60gm, Cardiac Pertinent Medications Maalox (PRN), Cordarone, Vitamin C, Glutose 40% (PRN), Colace, Glucagen (PRN), INS-SS , MOM (PRN), Glucophage, Senna , Januvia Pertinent Labs POC glucose (last 24 hours): 168, 201, 143 4/: GFR 48, Glucose 182 Nutritional Hx/Data Height 5 ft 6 in Height (Calculated Centimeters) 167.6 Current Weight (lbs) 274 lb Weight (Calculated Kilograms) 124.3 Weight (Calculated Grams) 058882.3 [place] Body Weight 130 LB (59.09 kg) % [place] Body Weight 211 Body Mass Index (BMI) 44.2 Weight Status Morbidly Obese GI Symptoms Last BM Not noted Skin Integrity/Comment: Kumar: 14 Pt bedbound, bruises and rash- no open wounds. Estimated Nutritional Goals BEE in Kcals: Adj wt of IBW Calories/Kcals/Kg 20-25 Kcals Calculated 6929-4400 Protein: Adj wt of IBW Protein g/k.8-1.0 Protein Calculated 60-75 Fluid: ml 0852-5126 ml (20-25 ml/kg) Nutritional Problem 2. Problem Problem Impaired nutrient utilization Etiology r/t endocrine dysfunction Signs/Symptoms: aeb Hx DMT2, labs (08/30) Glucose 182. 1. Problem Problem Obesity Etiology r/t consistent energy overconsumption Signs/Symptoms: aeb BMI >40 (44.22 obese, class III). Malnutrition Related to Morbid Obesity Malnutrition related to morbid obesity Yes Intervention/Recommendation Comments 1.Recommend diet modification to include cardiac d/t morbid obesity, BMI > 40, %IBW > 200% (completed). 2.Continue antihyperglycemic medications for glucose control per MD order. Expected Outcomes/Goals Expected Outcomes/Goals 1.PO intake to continue to meet >75% of estimated nutritional needs. 2.Monitor PO intake, wt, nutrition related labs to tend WNL, and skin integrity. 3.Gradual weight loss (0.5-1.0 Lb/week) trending towards IBW preferred. 4.F/U as low risk in 7-10 days , 09/09-09/12
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
[2019-09-12] MEDS: APAP/Oxycodone 5/325mg Tab PO PRN ×4 (06:47→19:46)
[2019-09-12] MEDS: INSULIN LISPRO SLIDING SCALE 100 UNITS/ML UNIT SUBQ SCH ×4 (06:54→20:35)
[2019-09-12] MEDS: Lactobacillus Rhamnosus GG 15 Billion CFU CAP.SPRINK PO SCH (08:23)
[2019-09-12] MEDS: Aspirin 81mg Chewable Tab PO SCH (08:23)
[2019-09-12] MEDS: Multivitamin w/ Minerals Tab PO SCH (08:24)
--- NOTE | 2019-09-12 17:33 | Progress Notes ---
DATE: 09/12/2019 SUBJECTIVE: Chart reviewed and the patient interviewed. Also discussed the patient's condition with the staff and reviewed records and labs. The patient is still demanding and she is still anxious, but at the same time, she is looking forward to leaving today in different [place] [facility], although assistant case manager said that the chances of her leaving today is not that high because the place where she is supposed to go found out that they have a case of coronavirus and they might not take her back because they were not accepting new patients. At the same time, the patient is frustrated and angry and easily agitated and in irritable mood for being in the hospital and wants to leave. She has no safe plan to leave except to go to this specific one [place] [facility] that accepted her, but they said that they will take her today, but at the same time, they might be a delay. At the same time, the patient is taking her medications. She also is still restless and she is still demanding at times to use the phone or call certain people immediately from her family. Patient stays in her bed all the time. Vital signs are stable. No new labs available for review. MENTAL STATUS EXAMINATION: Calm and cooperative during my interview. Denies any hallucinations or delusions and denies any suicidal or homicidal ideations. ASSESSMENT: The patient still needs placement and waiting for discharge plans. TREATMENT PLAN: Continue monitoring her behavior and her condition closely. Also, continue current treatment and current medications. Also, continue to work on her mood and continue to follow up. JOB# [id number]
[2019-09-13] MEDS: APAP/Oxycodone 5/325mg Tab PO PRN ×4 (02:02→20:06)
[2019-09-13] MEDS: INSULIN LISPRO SLIDING SCALE 100 UNITS/ML UNIT SUBQ SCH ×4 (06:43→21:30)
--- NOTE | 2019-09-13 06:55 | Progress Notes ---
DATE: 09/13/2019 SUBJECTIVE: Chart reviewed and patient interviewed. Also discussed the patient's condition with the staff and reviewed records and labs. The patient is disappointed for not leaving yesterday and shows having all hopes to be [facility] to the [facility] in [place]. [facility] could not take the patient yesterday because of Coronavirus case in the facility and they were not accepting new patients at the time being. Meanwhile, case assembler is trying to find different facility. The patient is still demanding and is still having severe mood swings with yelling episodes and cursing and throwing objects in the hallway. Easier to redirect her. Vital signs are stable and no new labs available for review and the patient stays in bed all the time. MENTAL STATUS EXAMINATION: Disappointed and angry for not leaving. Needs lots of reassurance. Thought process is circumstantial, but no flight of ideas. Denies hallucinations or delusions and denies any thoughts of suicide or homicide. ASSESSMENT: The patient still needs placement and still has episodes of aggressive behavior. TREATMENT PLAN: We will continue to monitor behavior and condition closely. Also, continue to work on her discharge plans and placement issue. ESTIMATED LENGTH OF STAY: Depending on the placement issue, but the patient can be discharged anytime once placement is available. REASON TO CONTINUE HOSPITAL STAY: The patient still has no place to live and continue working on her behavior and her impulse control. JOB# [id number]
[2019-09-13] MEDS: Aspirin 81mg Chewable Tab PO SCH (08:51)
[2019-09-13] MEDS: Multivitamin w/ Minerals Tab PO SCH (08:51)
[2019-09-13] MEDS: Lactobacillus Rhamnosus GG 15 Billion CFU CAP.SPRINK PO SCH (08:51)
--- NOTE | 2019-09-13 12:51 | Internal Medicine Prog Note ---
Internal Medicine Subjective - Subjective Service Date: 09/13/19 Patient is:: awake, verbal, interactive, agitated Per staff patient has:: no adverse event, no episodes of fall, agitated Internal Medicine Objective - Results Recent Labs: Laboratory Last Values POC Glucose 215 MG/DL (70 - 105) H 09/13/19 11:43 - Physical Exam Vitals and I&O: Vital Signs Temp 97.4 F 09/13/19 05:48 Pulse 70 09/13/19 08:53 Resp 17 09/13/19 08:00 BP 131/65 09/13/19 08:52 Pulse Ox 94 09/13/19 05:48 Intake & Output 09/12/19 09/13/19 09/13/19 18:59 06:59 18:59 Intake Total 120 Balance 120 Intake: Oral 120 Other: # Voids 3 # Bowel Movements 0 Active Medications: Current Medications Acetaminophen (Tylenol) 650 mg PO Q4H PRN PRN Reason: Pain (Mild 1-3) Stop: 10/31/19 00:54 Last Admin: 09/09/19 14:02 Dose: 650 mg Acetaminophen (Tylenol) 650 mg PO Q4HR PRN PRN Reason: Mild Pain / Temp above 100 Stop: 10/31/19 07:11 Last Admin: 09/04/19 12:10 Dose: 650 mg Al Hydrox/Mg Hydrox/Simethicone (Maalox) 30 ml PO Q4HR PRN PRN Reason: GI DISTRESS Stop: 10/31/19 00:54 Amiodarone HCl (Cordarone) 100 mg PO BID [facility] Stop: 10/31/19 08:59 Last Admin: 09/13/19 08:52 Dose: 100 mg Amlodipine Besylate (Norvasc) 10 mg PO DAILY [facility] Stop: 10/31/19 08:59 Last Admin: 09/13/19 08:52 Dose: 10 mg Ascorbic Acid (Vitamin C) 500 mg PO DAILY [facility] Stop: 10/31/19 08:59 Last Admin: 09/13/19 08:51 Dose: 500 mg Aspirin (Aspirin Chewable) 81 mg PO DAILY [facility] Stop: 10/31/19 08:59 Last Admin: 09/13/19 08:51 Dose: 81 mg Dextrose (Glutose 40%) 18.75 gm PO PRN PRN PRN Reason: BS below 70 & tolerate po Stop: 10/31/19 07:11 Digoxin (Lanoxin) 0.25 mg PO DAILY [facility] Stop: 11/06/19 08:59 Last Admin: 09/13/19 08:53 Dose: 0.25 mg Docusate Sodium (Colace) 100 mg PO BID [facility] Stop: 10/31/19 08:59 Last Admin: 09/13/19 08:51 Dose: 100 mg Escitalopram Oxalate (Lexapro) 10 mg PO DAILY [facility]; Protocol Stop: 10/31/19 08:59 Last Admin: 09/13/19 08:51 Dose: 10 mg Glucagon (Glucagen) 1 mg IM PRN PRN PRN Reason: BS below 70&dextrose ineffecti Stop: 10/31/19 07:11 Insulin Human Lispro (Humalog Insulin Sliding Scale) 0 units SUBQ ACHS [facility]; Protocol Stop: 10/31/19 07:29 Last Admin: 09/13/19 11:59 Dose: 4 units Lactobacillus Rhamnosus (Culturelle 15b) 1 each PO DAILY [facility] Stop: 11/05/19 08:59 Last Admin: 09/13/19 08:51 Dose: 1 each Lorazepam (Ativan) 0.5 mg PO Q4HR PRN; Protocol PRN Reason: Anxiety Stop: 10/01/19 00:54 Last Admin: 09/13/19 08:52 Dose: 0.5 mg Magnesium Hydroxide (Milk Of Magnesia) 30 ml PO HS PRN PRN Reason: Constipation Metformin HCl (Glucophage) 500 mg PO BIDWM [facility] Stop: 10/31/19 07:59 Last Admin: 09/13/19 08:51 Dose: 500 mg Miscellaneous (Probiotic Screen) 1 ea [facility] PRN PRN PRN Reason: PROTOCOL Stop: 11/04/19 13:14 Oxybutynin Chloride (Ditropan) 5 mg PO DAILY [facility] Stop: 10/31/19 08:59 Last Admin: 09/13/19 08:51 Dose: 5 mg Oxycodone/Acetaminophen (Percocet 5/325mg Oral Tab) 1 tab PO Q4H PRN PRN Reason: Severe Pain Stop: 10/31/19 07:11 Last Admin: 09/13/19 06:44 Dose: 1 tab Quetiapine Fumarate (Seroquel) 100 mg PO HS [facility]; Protocol Stop: 11/04/19 20:59 Last Admin: 09/12/19 20:35 Dose: 100 mg Rivaroxaban (Xarelto) 20 mg PO DAILY [facility] Stop: 10/31/19 08:59 Last Admin: 09/13/19 08:51 Dose: 20 mg Senna (Senna) 17.2 mg PO DAILY [facility] Stop: 10/31/19 08:59 Last Admin: 09/13/19 08:52 Dose: 17.2 mg Sitagliptin Phosphate (Januvia) 100 mg PO QDAC [facility] Stop: 10/31/19 07:29 Last Admin: 09/13/19 06:44 Dose: 100 mg Zolpidem Tartrate (Ambien) 5 mg PO HS PRN PRN Reason: Insomnia Stop: 10/31/19 00:54 Last Admin: 09/12/19 20:36 Dose: 5 mg General: NAD HEENT: NC/AT, PERRLA Neck: Supple, No JVD Lungs: other (no acute respiratory distress) Cardiovascular: Normal S1, Normal S2 Abdomen: soft, non-tender, non-distended Neurological: no change Internal Medicine Assmt/Plan - Assessment Assessment: HTN HX AFIB OBESITY DM2 CHRONIC PAINS SYNDROME - Plan Plan: monitor glucose fall precautions cpm Nutritional Asmnt/Malnutr-PDOC - Dietary Evaluation Malnutrition Findings (Please click <Entered> for more info): Nutritional Asmnt/Malnutrition Start: 09/03/19 17: 31 Text: Status: Complete Freq: Protocol: Document 09/03/19 17:40 MARCELO (Rec: 09/03/19 17:44 MARCELO [email or web address]) Nutritional Asmnt/Malnutrition Patient General Information Nutritional Screening Moderate Risk Diagnosis Psychosis Pertinent Medical Hx/Surgical Hx AFib, HTN, Obesity, DMT2, Psychosis, DVT Subjective Information Pt is a 69-year-old female admitted on 08/30 d/t agitation and aggressive behavior. Pt is eating an estimated 80% of meals since admit date (x3 days) Per Meal/Nutrition Activity Record. Dietary is currently providing an estimated 1600 kcals and 80 gm Pro, per Pt PO intake this is providing an estimated 1280 kcals and 64gm Pro to meet 85% kcal and 100% Pro needs. Pt refused dinner on first night here but has eaten 100% meals since dietitian visit and food preferences recorded. Visited pt in room in late afternoon, she was very alert and fully oriented, very pleasant. Made a few food requests and was alright with her diet once it was explained to her. Pt stated she is missing a few teeth but has no problem chewing and would like to eat cold cereal. Relayed information to pt RN Andrew. Pt requested a snack which I brought to her with some more water. Recommend diet modification to include cardiac d/t morbid obesity, BMI > 40, %IBW > 200% . Spoke with pt nurse Andrew regarding diet Rx recommendation (completed). Anthropometrics HT: 56 WT: 274 LB (124.55 kg) ABW: 166 LB (75.45 kg) BMI: 44.22 (Obese, class III) GI/ Skin Integrity GI: WNL, Soft, Non-tender, Large, Round BM: Not Noted I/O: 1380/Not Noted Skin: WNL, Bruises, Rash Kumar: 14 Diet Order: Mechanical Soft, CCHO 60gm, MONET Estimated Energy Needs: (Obese , ABW) 2855-2686 kcals (20-25 kcals/ kg) 60-75g Pro (0.8-1.0 g/kg) 9399-2899 ml (20-25 ml/kg) Current Diet Order/ Nutrition Support CCHO 60gm, Cardiac Pertinent Medications Maalox (PRN), Cordarone, Vitamin C, Glutose 40% (PRN), Colace, Glucagen (PRN), INS-SS , MOM (PRN), Glucophage, Senna , Januvia Pertinent Labs POC glucose (last 24 hours): 168, 201, 143 4/: GFR 48, Glucose 182 Nutritional Hx/Data Height 5 ft 6 in Height (Calculated Centimeters) 167.6 Current Weight (lbs) 274 lb Weight (Calculated Kilograms) 124.3 Weight (Calculated Grams) 510780.3 [place] Body Weight 130 LB (59.09 kg) % [place] Body Weight 211 Body Mass Index (BMI) 44.2 Weight Status Morbidly Obese GI Symptoms Last BM Not noted Skin Integrity/Comment: Kumar: 14 Pt bedbound, bruises and rash- no open wounds. Estimated Nutritional Goals BEE in Kcals: Adj wt of IBW Calories/Kcals/Kg 20-25 Kcals Calculated 9227-6717 Protein: Adj wt of IBW Protein g/k.8-1.0 Protein Calculated 60-75 Fluid: ml 3852-1033 ml (20-25 ml/kg) Nutritional Problem 2. Problem Problem Impaired nutrient utilization Etiology r/t endocrine dysfunction Signs/Symptoms: aeb Hx DMT2, labs (08/30) Glucose 182. 1. Problem Problem Obesity Etiology r/t consistent energy overconsumption Signs/Symptoms: aeb BMI >40 (44.22 obese, class III). Malnutrition Related to Morbid Obesity Malnutrition related to morbid obesity Yes Intervention/Recommendation Comments 1.Recommend diet modification to include cardiac d/t morbid obesity, BMI > 40, %IBW > 200% (completed). 2.Continue antihyperglycemic medications for glucose control per MD order. Expected Outcomes/Goals Expected Outcomes/Goals 1.PO intake to continue to meet >75% of estimated nutritional needs. 2.Monitor PO intake, wt, nutrition related labs to tend WNL, and skin integrity. 3.Gradual weight loss (0.5-1.0 Lb/week) trending towards IBW preferred. 4.F/U as low risk in 7-10 days , 09/09-09/12
[2019-09-14] MEDS: APAP/Oxycodone 5/325mg Tab PO PRN ×4 (00:58→21:02)
--- NOTE | 2019-09-14 06:43 | Progress Notes ---
DATE: SUBJECTIVE: Chart was reviewed and the patient interviewed. Also discussed the patient's condition with the staff and reviewed records and labs. The patient is still in irritable and angry mood and "I need a phone and I want to make the phone calls myself." The patient is still restless and she is still demanding and is verbally abusive to staff. She also is still angry with case aide and thinking that the case aide is not helping to get a placement, but at the same time there is no place available for the patient. The patient also is still at times abusive to staff and also at times still throwing objects to the floor, but it all seems to be more of behavioral issues. The patient stays in bed all the time and vital signs are stable and no new labs available for review. ASSESSMENT: The patient is still demanding and still needs behavioral modification as well as needs to work on her placement. TREATMENT PLAN: Continue monitoring behavior closely. Also, continue working on discharge plans and placement issue. ESTIMATED LENGTH OF STAY: 1-3 days. REASON TO CONTINUE HOSPITAL STAY: The patient still needs placement and also is still in irritable and angry mood. JOB# [id number]
[2019-09-14] MEDS: INSULIN LISPRO SLIDING SCALE 100 UNITS/ML UNIT SUBQ SCH ×4 (07:01→21:03)
[2019-09-14] MEDS: Aspirin 81mg Chewable Tab PO SCH (08:29)
[2019-09-14] MEDS: Lactobacillus Rhamnosus GG 15 Billion CFU CAP.SPRINK PO SCH (08:30)
[2019-09-14] MEDS: Multivitamin w/ Minerals Tab PO SCH (08:30)
--- NOTE | 2019-09-14 13:36 | Internal Medicine Prog Note ---
Internal Medicine Subjective - Subjective Service Date: 09/14/19 Patient is:: awake, verbal, interactive, agitated Per staff patient has:: no adverse event, no episodes of fall, agitated Internal Medicine Objective - Results Recent Labs: Laboratory Last Values POC Glucose 157 MG/DL (70 - 105) H 09/14/19 06:34 - Physical Exam Vitals and I&O: Vital Signs Temp 97.4 F 09/14/19 05:50 Pulse 69 09/14/19 08:30 Resp 20 09/14/19 07:31 BP 129/67 09/14/19 08:29 Pulse Ox 94 09/14/19 05:50 Intake & Output 09/13/19 09/14/19 09/14/19 18:59 06:59 18:59 Other: # Voids 4 3 # Bowel Movements 0 0 Active Medications: Current Medications Acetaminophen (Tylenol) 650 mg PO Q4H PRN PRN Reason: Pain (Mild 1-3) Stop: 10/31/19 00:54 Last Admin: 09/09/19 14:02 Dose: 650 mg Acetaminophen (Tylenol) 650 mg PO Q4HR PRN PRN Reason: Mild Pain / Temp above 100 Stop: 10/31/19 07:11 Last Admin: 09/04/19 12:10 Dose: 650 mg Al Hydrox/Mg Hydrox/Simethicone (Maalox) 30 ml PO Q4HR PRN PRN Reason: GI DISTRESS Stop: 10/31/19 00:54 Amiodarone HCl (Cordarone) 100 mg PO BID [facility] Stop: 10/31/19 08:59 Last Admin: 09/14/19 08:29 Dose: 100 mg Amlodipine Besylate (Norvasc) 10 mg PO DAILY [facility] Stop: 10/31/19 08:59 Last Admin: 09/14/19 08:29 Dose: 10 mg Ascorbic Acid (Vitamin C) 500 mg PO DAILY [facility] Stop: 10/31/19 08:59 Last Admin: 09/14/19 08:29 Dose: 500 mg Aspirin (Aspirin Chewable) 81 mg PO DAILY [facility] Stop: 10/31/19 08:59 Last Admin: 09/14/19 08:29 Dose: 81 mg Dextrose (Glutose 40%) 18.75 gm PO PRN PRN PRN Reason: BS below 70 & tolerate po Stop: 10/31/19 07:11 Digoxin (Lanoxin) 0.25 mg PO DAILY [facility] Stop: 11/06/19 08:59 Last Admin: 09/14/19 08:30 Dose: 0.25 mg Docusate Sodium (Colace) 100 mg PO BID [facility] Stop: 10/31/19 08:59 Last Admin: 09/14/19 08:30 Dose: 100 mg Escitalopram Oxalate (Lexapro) 10 mg PO DAILY [facility]; Protocol Stop: 10/31/19 08:59 Last Admin: 09/14/19 08:30 Dose: 10 mg Glucagon (Glucagen) 1 mg IM PRN PRN PRN Reason: BS below 70 if not tolerate po Stop: 10/31/19 07:11 Insulin Human Lispro (Humalog Insulin Sliding Scale) 0 units SUBQ ACHS [facility]; Protocol Stop: 10/31/19 07:29 Last Admin: 09/14/19 11:46 Dose: Not Given Lactobacillus Rhamnosus (Culturelle 15b) 1 each PO DAILY [facility] Stop: 11/05/19 08:59 Last Admin: 09/14/19 08:30 Dose: 1 each Lorazepam (Ativan) 0.5 mg PO Q4HR PRN; Protocol PRN Reason: Anxiety Stop: 10/01/19 00:54 Last Admin: 09/13/19 08:52 Dose: 0.5 mg Magnesium Hydroxide (Milk Of Magnesia) 30 ml PO HS PRN PRN Reason: Constipation Metformin HCl (Glucophage) 500 mg PO BIDWM [facility] Stop: 10/31/19 07:59 Last Admin: 09/14/19 08:29 Dose: 500 mg Miscellaneous (Probiotic Screen) 1 ea [facility] PRN PRN PRN Reason: PROTOCOL Stop: 11/04/19 13:14 Oxybutynin Chloride (Ditropan) 5 mg PO DAILY [facility] Stop: 10/31/19 08:59 Last Admin: 09/14/19 08:30 Dose: 5 mg Oxycodone/Acetaminophen (Percocet 5/325mg Oral Tab) 1 tab PO Q4H PRN PRN Reason: Severe Pain Stop: 10/31/19 07:11 Last Admin: 09/14/19 10:27 Dose: 1 tab Quetiapine Fumarate (Seroquel) 100 mg PO HS [facility]; Protocol Stop: 06/05/20 20:59 Last Admin: 09/13/19 20:50 Dose: 100 mg Rivaroxaban (Xarelto) 20 mg PO DAILY [facility] Stop: 10/31/19 08:59 Last Admin: 09/14/19 08:30 Dose: 20 mg Senna (Senna) 17.2 mg PO DAILY [facility] Stop: 10/31/19 08:59 Last Admin: 09/14/19 08:30 Dose: 17.2 mg Sitagliptin Phosphate (Januvia) 100 mg PO QDAC [facility] Stop: 10/31/19 07:29 Last Admin: 09/14/19 07:02 Dose: 100 mg Zolpidem Tartrate (Ambien) 5 mg PO HS PRN PRN Reason: Insomnia Stop: 10/31/19 00:54 Last Admin: 09/13/19 20:50 Dose: 5 mg General: NAD HEENT: NC/AT, PERRLA Neck: Supple, No JVD Lungs: other (no acute respiratory distress) Cardiovascular: Normal S1, Normal S2 Abdomen: soft, non-tender, non-distended Neurological: no change Internal Medicine Assmt/Plan - Assessment Assessment: HTN HX AFIB OBESITY DM2 CHRONIC PAINS SYNDROME - Plan Plan: monitor glucose fall precautions cpm Nutritional Asmnt/Malnutr-PDOC - Dietary Evaluation Malnutrition Findings (Please click <Entered> for more info): Nutritional Asmnt/Malnutrition Start: 09/03/19 17: 31 Text: Status: Complete Freq: Protocol: Document 09/03/19 17:40 MARCELO (Rec: 09/03/19 17:44 MARCELO [email or web address]) Nutritional Asmnt/Malnutrition Patient General Information Nutritional Screening Moderate Risk Diagnosis Psychosis Pertinent Medical Hx/Surgical Hx AFib, HTN, Obesity, DMT2, Psychosis, DVT Subjective Information Pt is a 69-year-old female admitted on 08/30 d/t agitation and aggressive behavior. Pt is eating an estimated 80% of meals since admit date (x3 days) Per Meal/Nutrition Activity Record. Dietary is currently providing an estimated 1600 kcals and 80 gm Pro, per Pt PO intake this is providing an estimated 1280 kcals and 64gm Pro to meet 85% kcal and 100% Pro needs. Pt refused dinner on first night here but has eaten 100% meals since dietitian visit and food preferences recorded. Visited pt in room in late afternoon, she was very alert and fully oriented, very pleasant. Made a few food requests and was alright with her diet once it was explained to her. Pt stated she is missing a few teeth but has no problem chewing and would like to eat cold cereal. Relayed information to pt RN Andrew. Pt requested a snack which I brought to her with some more water. Recommend diet modification to include cardiac d/t morbid obesity, BMI > 40, %IBW > 200% . Spoke with pt nurse Andrew regarding diet Rx recommendation (completed). Anthropometrics HT: 56 WT: 274 LB (124.55 kg) ABW: 166 LB (75.45 kg) BMI: 44.22 (Obese, class III) GI/ Skin Integrity GI: WNL, Soft, Non-tender, Large, Round BM: Not Noted I/O: 1380/Not Noted Skin: WNL, Bruises, Rash Kumar: 14 Diet Order: Mechanical Soft, CCHO 60gm, MONET Estimated Energy Needs: (Obese , ABW) 3978-5233 kcals (20-25 kcals/ kg) 60-75g Pro (0.8-1.0 g/kg) 2495-4414 ml (20-25 ml/kg) Current Diet Order/ Nutrition Support CCHO 60gm, Cardiac Pertinent Medications Maalox (PRN), Cordarone, Vitamin C, Glutose 40% (PRN), Colace, Glucagen (PRN), INS-SS , MOM (PRN), Glucophage, Senna , Januvia Pertinent Labs POC glucose (last 24 hours): 168, 201, 143 4/: GFR 48, Glucose 182 Nutritional Hx/Data Height 5 ft 6 in Height (Calculated Centimeters) 167.6 Current Weight (lbs) 274 lb Weight (Calculated Kilograms) 124.3 Weight (Calculated Grams) 394298.3 [place] Body Weight 130 LB (59.09 kg) % [place] Body Weight 211 Body Mass Index (BMI) 44.2 Weight Status Morbidly Obese GI Symptoms Last BM Not noted Skin Integrity/Comment: Kumar: 14 Pt bedbound, bruises and rash- no open wounds. Estimated Nutritional Goals BEE in Kcals: Adj wt of IBW Calories/Kcals/Kg 20-25 Kcals Calculated 6977-3074 Protein: Adj wt of IBW Protein g/k.8-1.0 Protein Calculated 60-75 Fluid: ml 3310-2779 ml (20-25 ml/kg) Nutritional Problem 2. Problem Problem Impaired nutrient utilization Etiology r/t endocrine dysfunction Signs/Symptoms: aeb Hx DMT2, labs (08/30) Glucose 182. 1. Problem Problem Obesity Etiology r/t consistent energy overconsumption Signs/Symptoms: aeb BMI >40 (44.22 obese, class III). Malnutrition Related to Morbid Obesity Malnutrition related to morbid obesity Yes Intervention/Recommendation Comments 1.Recommend diet modification to include cardiac d/t morbid obesity, BMI > 40, %IBW > 200% (completed). 2.Continue antihyperglycemic medications for glucose control per MD order. Expected Outcomes/Goals Expected Outcomes/Goals 1.PO intake to continue to meet >75% of estimated nutritional needs. 2.Monitor PO intake, wt, nutrition related labs to tend WNL, and skin integrity. 3.Gradual weight loss (0.5-1.0 Lb/week) trending towards IBW preferred. 4.F/U as low risk in 7-10 days , 09/09-09/12
[2019-09-15] MEDS: APAP/Oxycodone 5/325mg Tab PO PRN ×4 (03:56→21:04)
[2019-09-15] MEDS: INSULIN LISPRO SLIDING SCALE 100 UNITS/ML UNIT SUBQ SCH ×4 (06:39→21:04)
[2019-09-15] MEDS: Multivitamin w/ Minerals Tab PO SCH (08:17)
[2019-09-15] MEDS: Lactobacillus Rhamnosus GG 15 Billion CFU CAP.SPRINK PO SCH (08:17)
[2019-09-15] MEDS: Aspirin 81mg Chewable Tab PO SCH (08:18)
--- NOTE | 2019-09-15 10:52 | Progress Notes ---
DATE: 09/15/2019 The patient continued to be in irritable and angry mood and frustrated because "I want to live here and I won't find the place that will accept me." The patient is still demanding and she is still in angry and in irritable mood. The patient also is suspicious and is still paranoid and needs lots of redirections and also lots of reassurance. She is still minimizing her behavior and she does not think that she is doing anything wrong although she understands that because of coronavirus she was not going to the place where they said they will take her and that she likes to go there, but they have a case of coronavirus and they are not taking any new patients at this time, yet she is still getting agitated and irritable and demanding mood. Patient today is out of the bed and she is in the gurney chair and she said that she is trying to walk. She is although still demanding and agitated, yet she seems to be slightly easier to redirect. Vital signs are stable and no new labs available for review MENTAL STATUS EXAMINATION: The patient appears her stated age. Anxious. Irritable mood. Demanding and asking me to get her "give me a pencil." ASSESSMENT: The patient is still having episodes of agitation and still needs placement. TREATMENT PLAN: Continue monitoring behavior and medications. Also, continue adjusting medications and followup. [facility]# [id number]
[2019-09-16] MEDS: INSULIN LISPRO SLIDING SCALE 100 UNITS/ML UNIT SUBQ SCH ×4 (07:00→21:21)
--- NOTE | 2019-09-16 08:01 | Progress Notes ---
DATE: 09/16/2019 SUBJECTIVE: Chart was reviewed and the patient interviewed. Also discussed the patient's condition with the staff and reviewed records and labs. The patient continued to be in angry mood and she is still demanding and restless. The patient also is still uncooperative with the staff and throwing objects on the floor. She also is appointed for not leaving the hospital, but at the same time, no place accepting the patient. The patient is also arana and has severe mood swings. She also still has been demanding to leave, but at the same time, no safe plan for her discharge. The patient is staying in bed all the time, but at times she gets out on the gurney chair. Vital signs are stable and no new labs available for review. MENTAL STATUS EXAMINATION: Anxious. Angry. Irritable mood. ASSESSMENT: The patient is still in irritable mood and agitated and also needs placement. TREATMENT PLAN: We will continue to monitor her behavior and her condition closely. Also, lining caser continues to work on placement issue and on discharge plans and once placement is available, the patient can be discharged with followup as an outpatient. JOB# [id number]
[2019-09-16] MEDS: APAP/Oxycodone 5/325mg Tab PO PRN ×4 (08:39→21:36)
[2019-09-16] MEDS: Aspirin 81mg Chewable Tab PO SCH (08:39)
[2019-09-16] MEDS: Multivitamin w/ Minerals Tab PO SCH (08:40)
[2019-09-16] MEDS: Lactobacillus Rhamnosus GG 15 Billion CFU CAP.SPRINK PO SCH (08:40)
--- NOTE | 2019-09-16 14:12 | Internal Medicine Prog Note ---
Internal Medicine Subjective - Subjective Service Date: 09/16/19 Patient is:: awake, verbal, interactive, agitated Per staff patient has:: no adverse event, no episodes of fall, agitated Internal Medicine Objective - Results Recent Labs: Laboratory Last Values POC Glucose 185 MG/DL (70 - 105) H 09/16/19 11:46 - Physical Exam Vitals and I&O: Vital Signs Temp 97.7 F 09/14/19 20:23 Pulse 70 09/16/19 08:42 Resp 18 09/15/19 08:00 BP 120/60 09/16/19 08:42 Pulse Ox 96 09/14/19 20:23 Intake & Output 09/15/19 09/16/19 09/16/19 18:59 06:59 18:59 Intake Total 1600 360 Balance 1600 360 Intake: Oral 1600 360 Other: # Voids 4 2 # Bowel Movements 1 0 Active Medications: Current Medications Acetaminophen (Tylenol) 650 mg PO Q4H PRN PRN Reason: Pain (Mild 1-3) Stop: 10/31/19 00:54 Last Admin: 09/09/19 14:02 Dose: 650 mg Acetaminophen (Tylenol) 650 mg PO Q4HR PRN PRN Reason: Mild Pain / Temp above 100 Stop: 10/31/19 07:11 Last Admin: 09/04/19 12:10 Dose: 650 mg Al Hydrox/Mg Hydrox/Simethicone (Maalox) 30 ml PO Q4HR PRN PRN Reason: GI DISTRESS Stop: 10/31/19 00:54 Amiodarone HCl (Cordarone) 100 mg PO BID [facility] Stop: 10/31/19 08:59 Last Admin: 09/16/19 08:41 Dose: 100 mg Amlodipine Besylate (Norvasc) 10 mg PO DAILY [facility] Stop: 10/31/19 08:59 Last Admin: 09/16/19 08:42 Dose: 10 mg Ascorbic Acid (Vitamin C) 500 mg PO DAILY [facility] Stop: 10/31/19 08:59 Last Admin: 09/16/19 08:40 Dose: 500 mg Aspirin (Aspirin Chewable) 81 mg PO DAILY [facility] Stop: 10/31/19 08:59 Last Admin: 09/16/19 08:39 Dose: 81 mg Dextrose (Glutose 40%) 18.75 gm PO PRN PRN PRN Reason: BS below 70 & tolerate po Stop: 10/31/19 07:11 Digoxin (Lanoxin) 0.25 mg PO DAILY [facility] Stop: 11/06/19 08:59 Last Admin: 09/16/19 08:41 Dose: 0.25 mg Docusate Sodium (Colace) 100 mg PO BID [facility] Stop: 10/31/19 08:59 Last Admin: 09/16/19 08:40 Dose: 100 mg Escitalopram Oxalate (Lexapro) 10 mg PO DAILY [facility]; Protocol Stop: 10/31/19 08:59 Last Admin: 09/16/19 08:39 Dose: 10 mg Glucagon (Glucagen) 1 mg IM PRN PRN PRN Reason: BS below 70 if not tolerate po Stop: 10/31/19 07:11 Hydrocortisone (Hydrocortisone 1%) 1 appl TP BID [facility] Stop: 11/13/19 13:37 Last Admin: 09/16/19 09:04 Dose: 1 appl Insulin Human Lispro (Humalog Insulin Sliding Scale) 0 units SUBQ ACHS [facility]; Protocol Stop: 10/31/19 07:29 Last Admin: 09/16/19 12:49 Dose: 2 units Lactobacillus Rhamnosus (Culturelle 15b) 1 each PO DAILY [facility] Stop: 11/05/19 08:59 Last Admin: 09/16/19 08:40 Dose: 1 each Lorazepam (Ativan) 0.5 mg PO Q4HR PRN; Protocol PRN Reason: Anxiety Stop: 10/01/19 00:54 Last Admin: 09/13/19 08:52 Dose: 0.5 mg Magnesium Hydroxide (Milk Of Magnesia) 30 ml PO HS PRN PRN Reason: Constipation Metformin HCl (Glucophage) 500 mg PO BIDWM [facility] Stop: 10/31/19 07:59 Last Admin: 09/16/19 08:40 Dose: 500 mg Miscellaneous (Probiotic Screen) 1 ea MC PRN PRN PRN Reason: PROTOCOL Stop: 11/04/19 13:14 Oxybutynin Chloride (Ditropan) 5 mg PO DAILY [facility] Stop: 10/31/19 08:59 Last Admin: 09/16/19 08:39 Dose: 5 mg Oxycodone/Acetaminophen (Percocet 5/325mg Oral Tab) 1 tab PO Q4H PRN PRN Reason: Severe Pain Stop: 10/31/19 07:11 Last Admin: 09/16/19 12:52 Dose: 1 tab Quetiapine Fumarate (Seroquel) 100 mg PO HS [facility]; Protocol Stop: 11/04/19 20:59 Last Admin: 09/15/19 21:03 Dose: 100 mg Quetiapine Fumarate (Seroquel) 25 mg PO DAILY [facility]; Protocol Stop: 11/15/19 08:59 Last Admin: 09/16/19 09:22 Dose: 25 mg Rivaroxaban (Xarelto) 20 mg PO DAILY [facility] Stop: 10/31/19 08:59 Last Admin: 09/16/19 08:40 Dose: 20 mg Senna (Senna) 17.2 mg PO DAILY [facility] Stop: 10/31/19 08:59 Last Admin: 09/16/19 08:40 Dose: 17.2 mg Sitagliptin Phosphate (Januvia) 100 mg PO QDAC [facility] Stop: 10/31/19 07:29 Last Admin: 09/16/19 08:40 Dose: 100 mg Zolpidem Tartrate (Ambien) 5 mg PO HS PRN PRN Reason: Insomnia Stop: 10/31/19 00:54 Last Admin: 09/15/19 21:04 Dose: 5 mg General: NAD HEENT: NC/AT, PERRLA Neck: Supple, No JVD Lungs: other (no acute respiratory distress) Cardiovascular: Normal S1, Normal S2 Abdomen: soft, non-tender, non-distended Neurological: no change Internal Medicine Assmt/Plan - Assessment Assessment: HTN HX AFIB OBESITY DM2 CHRONIC PAINS SYNDROME - Plan Plan: monitor glucose fall precautions cpm Nutritional Asmnt/Malnutr-PDOC - Dietary Evaluation Malnutrition Findings (Please click <Entered> for more info): Nutritional Asmnt/Malnutrition Start: 09/03/19 17: 31 Text: Status: Complete Freq: Protocol: Document 09/03/19 17:40 MARCELO (Rec: 09/03/19 17:44 [id number]) Nutritional Asmnt/Malnutrition Patient General Information Nutritional Screening Moderate Risk Diagnosis Psychosis Pertinent Medical Hx/Surgical Hx AFib, HTN, Obesity, DMT2, Psychosis, DVT Subjective Information Pt is a 69-year-old female admitted on 08/30 d/t agitation and aggressive behavior. Pt is eating an estimated 80% of meals since admit date (x3 days) Per Meal/Nutrition Activity Record. Dietary is currently providing an estimated 1600 kcals and 80 gm Pro, per Pt PO intake this is providing an estimated 1280 kcals and 64gm Pro to meet 85% kcal and 100% Pro needs. Pt refused dinner on first night here but has eaten 100% meals since dietitian visit and food preferences recorded. Visited pt in room in late afternoon, she was very alert and fully oriented, very pleasant. Made a few food requests and was alright with her diet once it was explained to her. Pt stated she is missing a few teeth but has no problem chewing and would like to eat cold cereal. Relayed information to pt RN Andrew. Pt requested a snack which I brought to her with some more water. Recommend diet modification to include cardiac d/t morbid obesity, BMI > 40, %IBW > 200% . Spoke with pt nurse Andrew regarding diet Rx recommendation (completed). Anthropometrics HT: 56 WT: 274 LB (124.55 kg) ABW: 166 LB (75.45 kg) BMI: 44.22 (Obese, class III) GI/ Skin Integrity GI: WNL, Soft, Non-tender, Large, Round BM: Not Noted I/O: 1380/Not Noted Skin: WNL, Bruises, Rash Kumar: 14 Diet Order: Mechanical Soft, CCHO 60gm, MONET Estimated Energy Needs: (Obese , ABW) 5826-0942 kcals (20-25 kcals/ kg) 60-75g Pro (0.8-1.0 g/kg) 1725-7193 ml (20-25 ml/kg) Current Diet Order/ Nutrition Support CCHO 60gm, Cardiac Pertinent Medications Maalox (PRN), Cordarone, Vitamin C, Glutose 40% (PRN), Colace, Glucagen (PRN), INS-SS , MOM (PRN), Glucophage, Senna , Januvia Pertinent Labs POC glucose (last 24 hours): 168, 201, 143 4/: GFR 48, Glucose 182 Nutritional Hx/Data Height 5 ft 6 in Height (Calculated Centimeters) 167.6 Current Weight (lbs) 274 lb Weight (Calculated Kilograms) 124.3 Weight (Calculated Grams) 462155.3 [place] Body Weight 130 LB (59.09 kg) % [place] Body Weight 211 Body Mass Index (BMI) 44.2 Weight Status Morbidly Obese GI Symptoms Last BM Not noted Skin Integrity/Comment: Kumar: 14 Pt bedbound, bruises and rash- no open wounds. Estimated Nutritional Goals BEE in Kcals: Adj wt of IBW Calories/Kcals/Kg 20-25 Kcals Calculated 1395-1225 Protein: Adj wt of IBW Protein g/k.8-1.0 Protein Calculated 60-75 Fluid: ml 1240-7531 ml (20-25 ml/kg) Nutritional Problem 2. Problem Problem Impaired nutrient utilization Etiology r/t endocrine dysfunction Signs/Symptoms: aeb Hx DMT2, labs (08/30) Glucose 182. 1. Problem Problem Obesity Etiology r/t consistent energy overconsumption Signs/Symptoms: aeb BMI >40 (44.22 obese, class III). Malnutrition Related to Morbid Obesity Malnutrition related to morbid obesity Yes Intervention/Recommendation Comments 1.Recommend diet modification to include cardiac d/t morbid obesity, BMI > 40, %IBW > 200% (completed). 2.Continue antihyperglycemic medications for glucose control per MD order. Expected Outcomes/Goals Expected Outcomes/Goals 1.PO intake to continue to meet >75% of estimated nutritional needs. 2.Monitor PO intake, wt, nutrition related labs to tend WNL, and skin integrity. 3.Gradual weight loss (0.5-1.0 Lb/week) trending towards IBW preferred. 4.F/U as low risk in 7-10 days , 09/09-09/12
[2019-09-17] MEDS: APAP/Oxycodone 5/325mg Tab PO PRN ×4 (04:51→23:12)
[2019-09-17] MEDS: INSULIN LISPRO SLIDING SCALE 100 UNITS/ML UNIT SUBQ SCH ×4 (06:35→20:24)
[2019-09-17] MEDS: Aspirin 81mg Chewable Tab PO SCH (08:42)
[2019-09-17] MEDS: Multivitamin w/ Minerals Tab PO SCH (08:44)
[2019-09-17] MEDS: Lactobacillus Rhamnosus GG 15 Billion CFU CAP.SPRINK PO SCH (08:45)
--- NOTE | 2019-09-17 21:47 | Progress Notes ---
DATE: 09/16/2019 IDENTIFYING DATA: A 69-year-old female being engaged isolative. She recently scratched another nurse recently. Today on [id number] evaluation, hyperverbal, loud, impulsive and yelling. EXAMINATION: Lying in bed, hyperverbal, distraught, easily agitated and annoyed upon interview. Medication reconciliation reviewed includes Lexapro 10 mg, Seroquel 100 mg at nighttime and 25 during the day. ASSESSMENT AND PLAN: The patient continues to be ____ uncooperative, throwing items. We will continue with the recent adjustments in medications and continue working with mental block and case maker for safe disposition when bed available. JOB# [id number]
--- NOTE | 2019-09-18 01:55 | Progress Notes ---
DATE: 09/17/2019 SUBJECTIVE: The patient was seen in her room. She appears to be guarded, easily gets frustrated, more interactive, but still has a lot of anger and frustration. Otherwise, the patient appears to be in no acute distress. OBJECTIVE: VITAL SIGNS: Temperature 97, heart rate 65, blood pressure 141/61, respirations 19, and 96% on room air. HEENT: Head is atraumatic and normocephalic. Eyes: Bilateral conjunctivae are clear. Bilateral pupils are equally round and reactive. NECK: Supple. No JVD. CARDIOVASCULAR: S1 and S2, without murmur. PULMONARY: Clear to auscultation. GASTROINTESTINAL: Soft and nontender without guarding. Positive bowel sounds. MUSCULOSKELETAL: No clubbing, no cyanosis noted. ASSESSMENT: 1. Bipolar disorder. 2. Hypertension. 3. Diabetes. 4. Atrial fibrillation. 5. Chronic pain syndrome. PLAN: We will continue to keep the patient inpatient in Psychiatric Unit. We will follow up with a psychiatrist to monitor the patient's condition and behavior. Treatment plans were discussed with the patient's nurse. Treatment plans were discussed with Dr. Lewis. JOB# [id number]
[2019-09-18] MEDS: APAP/Oxycodone 5/325mg Tab PO PRN ×4 (06:28→21:17)
[2019-09-18] MEDS: INSULIN LISPRO SLIDING SCALE 100 UNITS/ML UNIT SUBQ SCH ×4 (06:32→20:48)
[2019-09-18] MEDS: Aspirin 81mg Chewable Tab PO SCH (09:23)
[2019-09-18] MEDS: Multivitamin w/ Minerals Tab PO SCH (09:24)
[2019-09-18] MEDS: Lactobacillus Rhamnosus GG 15 Billion CFU CAP.SPRINK PO SCH (09:25)
--- NOTE | 2019-09-18 14:23 | Internal Medicine Prog Note ---
Internal Medicine Subjective - Subjective Patient is:: awake, verbal, interactive, agitated Per staff patient has:: no adverse event, no episodes of fall, agitated Internal Medicine Objective - Results Recent Labs: Laboratory Last Values POC Glucose 172 MG/DL (70 - 105) H 09/18/19 06:07 - Physical Exam Vitals and I&O: Vital Signs Temp 97.0 F 09/18/19 05:59 Pulse 65 09/18/19 09:24 Resp 20 09/18/19 08:00 BP 134/73 09/18/19 09:24 Pulse Ox 94 09/18/19 05:59 Intake & Output 09/17/19 09/18/19 09/18/19 18:59 06:59 18:59 Intake Total 1500 360 650 Balance 1500 360 650 Intake: Oral 1500 360 650 Other: # Voids 3 2 # Bowel Movements 0 1 Active Medications: Current Medications Acetaminophen (Tylenol) 650 mg PO Q4H PRN PRN Reason: Pain (Mild 1-3) Stop: 10/31/19 00:54 Last Admin: 09/09/19 14:02 Dose: 650 mg Acetaminophen (Tylenol) 650 mg PO Q4HR PRN PRN Reason: Mild Pain / Temp above 100 Stop: 10/31/19 07:11 Last Admin: 09/04/19 12:10 Dose: 650 mg Al Hydrox/Mg Hydrox/Simethicone (Maalox) 30 ml PO Q4HR PRN PRN Reason: GI DISTRESS Stop: 10/31/19 00:54 Amiodarone HCl (Cordarone) 100 mg PO BID [facility] Stop: 10/31/19 08:59 Last Admin: 09/18/19 09:23 Dose: 100 mg Amlodipine Besylate (Norvasc) 10 mg PO DAILY [facility] Stop: 10/31/19 08:59 Last Admin: 09/18/19 09:24 Dose: 10 mg Ascorbic Acid (Vitamin C) 500 mg PO DAILY [facility] Stop: 10/31/19 08:59 Last Admin: 09/18/19 09:23 Dose: 500 mg Aspirin (Aspirin Chewable) 81 mg PO DAILY [facility] Stop: 10/31/19 08:59 Last Admin: 09/18/19 09:23 Dose: 81 mg Dextrose (Glutose 40%) 18.75 gm PO PRN PRN PRN Reason: BS below 70 & tolerate po Stop: 10/31/19 07:11 Digoxin (Lanoxin) 0.25 mg PO DAILY [facility] Stop: 11/06/19 08:59 Last Admin: 09/18/19 09:23 Dose: 0.25 mg Docusate Sodium (Colace) 100 mg PO BID [facility] Stop: 10/31/19 08:59 Last Admin: 09/18/19 09:23 Dose: 100 mg Escitalopram Oxalate (Lexapro) 10 mg PO DAILY [facility]; Protocol Stop: 10/31/19 08:59 Last Admin: 09/18/19 09:22 Dose: 10 mg Glucagon (Glucagen) 1 mg IM PRN PRN PRN Reason: BS below 70 if not tolerate po Stop: 10/31/19 07:11 Hydrocortisone (Hydrocortisone 1%) 1 appl TP BID [facility] Stop: 11/13/19 13:37 Last Admin: 09/18/19 09:29 Dose: 1 appl Insulin Human Lispro (Humalog Insulin Sliding Scale) 0 units SUBQ ACHS [facility]; Protocol Stop: 10/31/19 07:29 Last Admin: 09/18/19 11:21 Dose: Not Given Lactobacillus Rhamnosus (Culturelle 15b) 1 each PO DAILY [facility] Stop: 11/05/19 08:59 Last Admin: 09/18/19 09:25 Dose: 1 each Lorazepam (Ativan) 0.5 mg PO Q4HR PRN; Protocol PRN Reason: Anxiety Stop: 10/01/19 00:54 Last Admin: 09/13/19 08:52 Dose: 0.5 mg Magnesium Hydroxide (Milk Of Magnesia) 30 ml PO HS PRN PRN Reason: Constipation Metformin HCl (Glucophage) 500 mg PO BIDWM [facility] Stop: 10/31/19 07:59 Last Admin: 09/18/19 07:50 Dose: 500 mg Miscellaneous (Probiotic Screen) 1 ea MC PRN PRN PRN Reason: PROTOCOL Stop: 11/04/19 13:14 Oxybutynin Chloride (Ditropan) 5 mg PO DAILY [facility] Stop: 10/31/19 08:59 Last Admin: 09/18/19 09:24 Dose: 5 mg Oxycodone/Acetaminophen (Percocet 5/325mg Oral Tab) 1 tab PO Q4H PRN PRN Reason: Severe Pain Stop: 10/31/19 07:11 Last Admin: 09/18/19 13:11 Dose: 1 tab Quetiapine Fumarate (Seroquel) 100 mg PO HS [facility]; Protocol Stop: 11/04/19 20:59 Last Admin: 09/17/19 21:03 Dose: 100 mg Quetiapine Fumarate (Seroquel) 25 mg PO DAILY [facility]; Protocol Stop: 11/15/19 08:59 Last Admin: 09/18/19 09:23 Dose: 25 mg Rivaroxaban (Xarelto) 20 mg PO DAILY [facility] Stop: 10/31/19 08:59 Last Admin: 09/18/19 09:24 Dose: 20 mg Senna (Senna) 17.2 mg PO DAILY [facility] Stop: 10/31/19 08:59 Last Admin: 09/18/19 09:23 Dose: 17.2 mg Sitagliptin Phosphate (Januvia) 100 mg PO QDAC [facility] Stop: 10/31/19 07:29 Last Admin: 09/18/19 06:32 Dose: 100 mg Zolpidem Tartrate (Ambien) 5 mg PO HS PRN PRN Reason: Insomnia Stop: 10/31/19 00:54 Last Admin: 09/17/19 21:03 Dose: 5 mg General: NAD HEENT: NC/AT, PERRLA Neck: Supple, No JVD Lungs: other (no acute respiratory distress) Cardiovascular: Normal S1, Normal S2 Abdomen: soft, non-tender, non-distended Extremities: other (Arm bruising and abrasion since admission, rash abd/axilla since admission, R knee healed scar) Neurological: no change Internal Medicine Assmt/Plan - Assessment Assessment: Bipolar disroder HTN Afib Chronic pain syndrome DM OAB - Plan Plan: Continue current treatment Fall and Safety precautions Psychiatry for psych management Continue to monitor VS, IO Pain as needed Continue to collaborate with interdisciplinary team. Nutritional Asmnt/Malnutr-PDOC - Dietary Evaluation Malnutrition Findings (Please click <Entered> for more info): Nutritional Asmnt/Malnutrition Start: 09/03/19 17: 31 Text: Status: Complete Freq: Protocol: Document 09/03/19 17:40 MARCELO (Rec: 09/03/19 17:44 MARCELO [id number]) Nutritional Asmnt/Malnutrition Patient General Information Nutritional Screening Moderate Risk Diagnosis Psychosis Pertinent Medical Hx/Surgical Hx AFib, HTN, Obesity, DMT2, Psychosis, DVT Subjective Information Pt is a 69-year-old female admitted on 08/30 d/t agitation and aggressive behavior. Pt is eating an estimated 80% of meals since admit date (x3 days) Per Meal/Nutrition Activity Record. Dietary is currently providing an estimated 1600 kcals and 80 gm Pro, per Pt PO intake this is providing an estimated 1280 kcals and 64gm Pro to meet 85% kcal and 100% Pro needs. Pt refused dinner on first night here but has eaten 100% meals since dietitian visit and food preferences recorded. Visited pt in room in late afternoon, she was very alert and fully oriented, very pleasant. Made a few food requests and was alright with her diet once it was explained to her. Pt stated she is missing a few teeth but has no problem chewing and would like to eat cold cereal. Relayed information to pt RN Andrew. Pt requested a snack which I brought to her with some more water. Recommend diet modification to include cardiac d/t morbid obesity, BMI > 40, %IBW > 200% . Spoke with pt nurse Andrew regarding diet Rx recommendation (completed). Anthropometrics HT: 56 WT: 274 LB (124.55 kg) ABW: 166 LB (75.45 kg) BMI: 44.22 (Obese, class III) GI/ Skin Integrity GI: WNL, Soft, Non-tender, Large, Round BM: Not Noted I/O: 1380/Not Noted Skin: WNL, Bruises, Rash Kumar: 14 Diet Order: Mechanical Soft, CCHO 60gm, MONET Estimated Energy Needs: (Obese , ABW) 6608-0408 kcals (20-25 kcals/ kg) 60-75g Pro (0.8-1.0 g/kg) 6657-4299 ml (20-25 ml/kg) Current Diet Order/ Nutrition Support CCHO 60gm, Cardiac Pertinent Medications Maalox (PRN), Cordarone, Vitamin C, Glutose 40% (PRN), Colace, Glucagen (PRN), INS-SS , MOM (PRN), Glucophage, Senna , Januvia Pertinent Labs POC glucose (last 24 hours): 168, 201, 143 08/30: GFR 48, Glucose 182 Nutritional Hx/Data Height 5 ft 6 in Height (Calculated Centimeters) 167.6 Current Weight (lbs) 274 lb Weight (Calculated Kilograms) 124.3 Weight (Calculated Grams) 948620.3 [place] Body Weight 130 LB (59.09 kg) % [place] Body Weight 211 Body Mass Index (BMI) 44.2 Weight Status Morbidly Obese GI Symptoms Last BM Not noted Skin Integrity/Comment: Kumar: 14 Pt bedbound, bruises and rash- no open wounds. Estimated Nutritional Goals BEE in Kcals: Adj wt of IBW Calories/Kcals/Kg 20-25 Kcals Calculated 6586-3585 Protein: Adj wt of IBW Protein g/k.8-1.0 Protein Calculated 60-75 Fluid: ml 5030-2487 ml (20-25 ml/kg) Nutritional Problem 2. Problem Problem Impaired nutrient utilization Etiology r/t endocrine dysfunction Signs/Symptoms: aeb Hx DMT2, labs (08/30) Glucose 182. 1. Problem Problem Obesity Etiology r/t consistent energy overconsumption Signs/Symptoms: aeb BMI >40 (44.22 obese, class III). Malnutrition Related to Morbid Obesity Malnutrition related to morbid obesity Yes Intervention/Recommendation Comments 1.Recommend diet modification to include cardiac d/t morbid obesity, BMI > 40, %IBW > 200% (completed). 2.Continue antihyperglycemic medications for glucose control per MD order. Expected Outcomes/Goals Expected Outcomes/Goals 1.PO intake to continue to meet >75% of estimated nutritional needs. 2.Monitor PO intake, wt, nutrition related labs to tend WNL, and skin integrity. 3.Gradual weight loss (0.5-1.0 Lb/week) trending towards IBW preferred. 4.F/U as low risk in 7-10 days , 09/09-09/12
--- NOTE | 2019-09-18 22:12 | Progress Notes ---
DATE: 09/18/2019 No complications or side effects noted. Nursing staff reported the patient is more redirectable. Today on [id number] evaluation, the patient reports that her thoughts and moods are improving. ____ mood swing that she was experiencing before. She is distraught with her lack of placement. MENTAL STATUS EXAMINATION: Calmer, attentive, cooperative, although mood swings____ continues to be improving with the recent adjustment. JOB# [id number]
[2019-09-19] MEDS: APAP/Oxycodone 5/325mg Tab PO PRN ×4 (02:16→19:47)
[2019-09-19] MEDS: INSULIN LISPRO SLIDING SCALE 100 UNITS/ML UNIT SUBQ SCH ×4 (06:35→21:27)
[2019-09-19] MEDS: Lactobacillus Rhamnosus GG 15 Billion CFU CAP.SPRINK PO SCH (08:19)
[2019-09-19] MEDS: Multivitamin w/ Minerals Tab PO SCH (08:21)
[2019-09-19] MEDS: Aspirin 81mg Chewable Tab PO SCH (08:22)
--- NOTE | 2019-09-19 10:13 | Progress Notes ---
DATE: 09/19/2019 PSYCHIATRIC PROGRESS NOTE SUBJECTIVE: Chart reviewed and the patient interviewed. Also discussed the patient's condition with the staff and reviewed records and labs. Also discussed the patient's condition with the rn case mgr/network planner. The patient is still anxious about placement and piano case and bench assembler are still trying to find a place for the patient to live. It seems that placement in [facility] is difficult because of multiple Coronavirus cases in different nursing homes and facilities. At the same time, rn case mgr might have more success in [facility] and there is one place that might accept the patient. Discussed that with the patient and the patient has no objections to go to [facility]. At the same time, the patient is cooperative and compliant with taking her medications, but still demanding and is still at times abusive to nurses when they do not follow her demands or if it is not done immediately. At the same time, the patient denies any side effects of medications. The patient is trying hard to get stronger and walking more and "I have been taking more steps." She also continued to try to lose more weight. Vital signs are stable and no new labs available for review. MENTAL STATUS EXAMINATION: The patient seems to be calmer today. Cooperative. Thought processes are more goal directed. ASSESSMENT: The patient is less irritable, but still demanding and needs placement. TREATMENT PLAN: Continue current treatment and current medications and Seroquel was increased last Thursday to 25 mg in the morning and 100 mg at bedtime. No side effects. Also, continue to work on placement issue. ESTIMATED LENGTH OF STAY: 1-3 days. REASON FOR CONTINUED HOSPITAL STAY: The patient still needs placement. JOB# [id number]
[2019-09-20] MEDS: APAP/Oxycodone 5/325mg Tab PO PRN ×3 (02:04→12:11)
[2019-09-20] MEDS: INSULIN LISPRO SLIDING SCALE 100 UNITS/ML UNIT SUBQ SCH ×2 (06:50→11:49)
--- NOTE | 2019-09-20 07:35 | Progress Notes ---
DATE: 09/20/2019 SUBJECTIVE: Chart was reviewed and the patient interviewed. Also discussed the patient's condition with the staff and reviewed records and labs. The patient today is calm and cooperative. She also is able to follow directions. The patient also is agreeable for placement in [facility] in [place] and it seemed that they might accept the patient there. The patient denies any intention to harm herself or others and she is cooperative and compliant with taking her medications. The patient is trying to walk, but her gait is very slow and she still needs rehabilitation and the patient will need to go to [facility] to continue with her rehabilitation. AFTER-DISCHARGE PLANS: The patient hopefully will go to [facility] with plans to follow her there. MENTAL STATUS EXAMINATION: Calm. Cooperative. In a mood, not depressed nor elated. The patient denies any hallucinations or delusions and denies any suicide or homicide ideations. ASSESSMENT: The patient is calmer and not suicidal or homicidal. TREATMENT PLAN: We will continue monitoring her condition in [facility]. Also, continue to work on discharge plans. Hopefully, if the patient accepted in [place], we will try to discharge the patient today or tomorrow. At the same time, we will continue to monitor her care and followup. ESTIMATED LENGTH OF STAY: 1-3 days. REASON TO CONTINUE HOSPITAL STAY: The patient still needs placement. JOB# [id number]
[2019-09-20] MEDS: Multivitamin w/ Minerals Tab PO SCH (08:04)
[2019-09-20] MEDS: Aspirin 81mg Chewable Tab PO SCH (08:05)
[2019-09-20] MEDS: Lactobacillus Rhamnosus GG 15 Billion CFU CAP.SPRINK PO SCH (08:05)
--- NOTE | 2019-09-20 13:49 | Internal Medicine Prog Note ---
Internal Medicine Subjective - Subjective Service Date: 09/20/19 Patient is:: awake, verbal, interactive, agitated Per staff patient has:: no adverse event, no episodes of fall, agitated Internal Medicine Objective - Results Recent Labs: Laboratory Last Values POC Glucose 156 MG/DL (70 - 105) H 09/20/19 07:35 - Physical Exam Vitals and I&O: Vital Signs Temp 97.8 F 09/19/19 20:29 Pulse 65 09/20/19 08:07 Resp 17 09/20/19 08:00 BP 137/67 09/20/19 08:06 Pulse Ox 96 09/19/19 20:29 Intake & Output 09/19/19 09/20/19 09/20/19 18:59 06:59 18:59 Intake Total 1540 720 Output Total 1 Balance 1540 719 Intake: Oral 1080 720 Other 460 Output: Urine/Stool Mix 1 Other: # Voids 4 2 # Bowel Movements 0 0 Active Medications: Current Medications Acetaminophen (Tylenol) 650 mg PO Q4H PRN PRN Reason: Pain (Mild 1-3) Stop: 10/31/19 00:54 Last Admin: 09/09/19 14:02 Dose: 650 mg Acetaminophen (Tylenol) 650 mg PO Q4HR PRN PRN Reason: Mild Pain / Temp above 100 Stop: 10/31/19 07:11 Last Admin: 09/04/19 12:10 Dose: 650 mg Al Hydrox/Mg Hydrox/Simethicone (Maalox) 30 ml PO Q4HR PRN PRN Reason: GI DISTRESS Stop: 10/31/19 00:54 Amiodarone HCl (Cordarone) 100 mg PO BID [facility] Stop: 10/31/19 08:59 Last Admin: 09/20/19 08:05 Dose: 100 mg Amlodipine Besylate (Norvasc) 10 mg PO DAILY [facility] Stop: 10/31/19 08:59 Last Admin: 09/20/19 08:06 Dose: 10 mg Ascorbic Acid (Vitamin C) 500 mg PO DAILY [facility] Stop: 10/31/19 08:59 Last Admin: 09/20/19 08:05 Dose: 500 mg Aspirin (Aspirin Chewable) 81 mg PO DAILY [facility] Stop: 10/31/19 08:59 Last Admin: 09/20/19 08:05 Dose: 81 mg Dextrose (Glutose 40%) 18.75 gm PO PRN PRN PRN Reason: BS below 70 & tolerate po Stop: 10/31/19 07:11 Digoxin (Lanoxin) 0.25 mg PO DAILY [facility] Stop: 11/06/19 08:59 Last Admin: 09/20/19 08:07 Dose: 0.25 mg Docusate Sodium (Colace) 100 mg PO BID [facility] Stop: 10/31/19 08:59 Last Admin: 09/20/19 08:05 Dose: 100 mg Escitalopram Oxalate (Lexapro) 10 mg PO DAILY [facility]; Protocol Stop: 10/31/19 08:59 Last Admin: 09/20/19 08:04 Dose: 10 mg Glucagon (Glucagen) 1 mg IM PRN PRN PRN Reason: BS below 70 if not tolerate po Stop: 10/31/19 07:11 Hydrocortisone (Hydrocortisone 1%) 1 appl TP BID [facility] Stop: 11/13/19 13:37 Last Admin: 09/20/19 09:39 Dose: 1 appl Insulin Human Lispro (Humalog Insulin Sliding Scale) 0 units SUBQ ACHS [facility]; Protocol Stop: 10/31/19 07:29 Last Admin: 09/20/19 11:49 Dose: Not Given Lactobacillus Rhamnosus (Culturelle 15b) 1 each PO DAILY [facility] Stop: 11/05/19 08:59 Last Admin: 09/20/19 08:05 Dose: 1 each Lorazepam (Ativan) 0.5 mg PO Q4HR PRN; Protocol PRN Reason: Anxiety Stop: 10/01/19 00:54 Last Admin: 09/13/19 08:52 Dose: 0.5 mg Magnesium Hydroxide (Milk Of Magnesia) 30 ml PO HS PRN PRN Reason: Constipation Metformin HCl (Glucophage) 500 mg PO BIDWM [facility] Stop: 10/31/19 07:59 Last Admin: 09/20/19 07:55 Dose: 500 mg Miscellaneous (Probiotic Screen) 1 ea MC PRN PRN PRN Reason: PROTOCOL Stop: 11/04/19 13:14 Oxybutynin Chloride (Ditropan) 5 mg PO DAILY [facility] Stop: 10/31/19 08:59 Last Admin: 09/20/19 08:05 Dose: 5 mg Oxycodone/Acetaminophen (Percocet 5/325mg Oral Tab) 1 tab PO Q4H PRN PRN Reason: Severe Pain Stop: 10/31/19 07:11 Last Admin: 09/20/19 12:11 Dose: 1 tab Quetiapine Fumarate (Seroquel) 100 mg PO HS [facility]; Protocol Stop: 11/04/19 20:59 Last Admin: 09/19/19 20:33 Dose: 100 mg Quetiapine Fumarate (Seroquel) 25 mg PO DAILY [facility]; Protocol Stop: 11/15/19 08:59 Last Admin: 09/20/19 08:05 Dose: 25 mg Rivaroxaban (Xarelto) 20 mg PO DAILY [facility] Stop: 10/31/19 08:59 Last Admin: 09/20/19 08:05 Dose: 20 mg Senna (Senna) 17.2 mg PO DAILY [facility] Stop: 10/31/19 08:59 Last Admin: 09/20/19 08:04 Dose: 17.2 mg Sitagliptin Phosphate (Januvia) 100 mg PO QDAC [facility] Stop: 10/31/19 07:29 Last Admin: 09/20/19 07:55 Dose: 100 mg Zolpidem Tartrate (Ambien) 5 mg PO HS PRN PRN Reason: Insomnia Stop: 10/31/19 00:54 Last Admin: 09/19/19 20:33 Dose: 5 mg General: NAD HEENT: NC/AT, PERRLA Neck: Supple, No JVD Lungs: other (no acute respiratory distress) Cardiovascular: Normal S1, Normal S2 Abdomen: soft, non-tender, non-distended Extremities: other (Arm bruising and abrasion since admission, rash abd/axilla since admission, R knee healed scar) Neurological: no change Internal Medicine Assmt/Plan - Assessment Assessment: HTN HX AFIB OBESITY DM2 CHRONIC PAINS SYNDROME - Plan Plan: monitor glucose fall precautions cpm Nutritional Asmnt/Malnutr-PDOC - Dietary Evaluation Malnutrition Findings (Please click <Entered> for more info): Nutritional Asmnt/Malnutrition Start: 09/03/19 17: 31 Text: Status: Complete Freq: Protocol: Document 09/03/19 17:40 MARCELO (Rec: 09/03/19 17:44 MARCELO [id number]) Nutritional Asmnt/Malnutrition Patient General Information Nutritional Screening Moderate Risk Diagnosis Psychosis Pertinent Medical Hx/Surgical Hx AFib, HTN, Obesity, DMT2, Psychosis, DVT Subjective Information Pt is a 69-year-old female admitted on 08/30 d/t agitation and aggressive behavior. Pt is eating an estimated 80% of meals since admit date (x3 days) Per Meal/Nutrition Activity Record. Dietary is currently providing an estimated 1600 kcals and 80 gm Pro, per Pt PO intake this is providing an estimated 1280 kcals and 64gm Pro to meet 85% kcal and 100% Pro needs. Pt refused dinner on first night here but has eaten 100% meals since dietitian visit and food preferences recorded. Visited pt in room in late afternoon, she was very alert and fully oriented, very pleasant. Made a few food requests and was alright with her diet once it was explained to her. Pt stated she is missing a few teeth but has no problem chewing and would like to eat cold cereal. Relayed information to pt RN Andrew. Pt requested a snack which I brought to her with some more water. Recommend diet modification to include cardiac d/t morbid obesity, BMI > 40, %IBW > 200% . Spoke with pt nurse Andrew regarding diet Rx recommendation (completed). Anthropometrics HT: 56 WT: 274 LB (124.55 kg) ABW: 166 LB (75.45 kg) BMI: 44.22 (Obese, class III) GI/ Skin Integrity GI: WNL, Soft, Non-tender, Large, Round BM: Not Noted I/O: 1380/Not Noted Skin: WNL, Bruises, Rash Kumar: 14 Diet Order: Mechanical Soft, CCHO 60gm, MONET Estimated Energy Needs: (Obese , ABW) 6269-9388 kcals (20-25 kcals/ kg) 60-75g Pro (0.8-1.0 g/kg) 9125-3359 ml (20-25 ml/kg) Current Diet Order/ Nutrition Support CCHO 60gm, Cardiac Pertinent Medications Maalox (PRN), Cordarone, Vitamin C, Glutose 40% (PRN), Colace, Glucagen (PRN), INS-SS , MOM (PRN), Glucophage, Senna , Januvia Pertinent Labs POC glucose (last 24 hours): 168, 201, 143 08/30: GFR 48, Glucose 182 Nutritional Hx/Data Height 5 ft 6 in Height (Calculated Centimeters) 167.6 Current Weight (lbs) 274 lb Weight (Calculated Kilograms) 124.3 Weight (Calculated Grams) 390497.3 [place] Body Weight 130 LB (59.09 kg) % [place] Body Weight 211 Body Mass Index (BMI) 44.2 Weight Status Morbidly Obese GI Symptoms Last BM Not noted Skin Integrity/Comment: Kumar: 14 Pt bedbound, bruises and rash- no open wounds. Estimated Nutritional Goals BEE in Kcals: Adj wt of IBW Calories/Kcals/Kg 20-25 Kcals Calculated 8838-5082 Protein: Adj wt of IBW Protein g/k.8-1.0 Protein Calculated 60-75 Fluid: ml 6109-3456 ml (20-25 ml/kg) Nutritional Problem 2. Problem Problem Impaired nutrient utilization Etiology r/t endocrine dysfunction Signs/Symptoms: aeb Hx DMT2, labs (08/30) Glucose 182. 1. Problem Problem Obesity Etiology r/t consistent energy overconsumption Signs/Symptoms: aeb BMI >40 (44.22 obese, class III). Malnutrition Related to Morbid Obesity Malnutrition related to morbid obesity Yes Intervention/Recommendation Comments 1.Recommend diet modification to include cardiac d/t morbid obesity, BMI > 40, %IBW > 200% (completed). 2.Continue antihyperglycemic medications for glucose control per MD order. Expected Outcomes/Goals Expected Outcomes/Goals 1.PO intake to continue to meet >75% of estimated nutritional needs. 2.Monitor PO intake, wt, nutrition related labs to tend WNL, and skin integrity. 3.Gradual weight loss (0.5-1.0 Lb/week) trending towards IBW preferred. 4.F/U as low risk in 7-10 days , 09/09-09/12
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
== END 2019-09-20 15:15 | DRG 885 ==
LOC: GERO 23:30
PROVIDERS: ADMIT Psychiatry & Neurology Psychiatry; ATTEND Psychiatry & Neurology Psychiatry
DX: F31.64 Bipolar disorder, current episode mixed, severe, with psychotic features (principal); Z68.41 Body mass index [BMI] 40.0-44.9, adult; E11.9 Type 2 diabetes mellitus without complications; I10 Essential (primary) hypertension; E66.9 Obesity, unspecified; G89.4 Chronic pain syndrome; I48.91 Unspecified atrial fibrillation; N32.81 Overactive bladder; Z79.899 Other long term (current) drug therapy; Z79.84 Long term (current) use of oral hypoglycemic drugs; Z88.0 Allergy status to penicillin; Z86.718 Personal history of other venous thrombosis and embolism; Z79.01 Long term (current) use of anticoagulants; Z91.19 Patient's noncompliance with other medical treatment and regimen
CPT/HCPCS: 82948-90; 83036-90; 97530; G0410; X3904; Z7610